=== PATIENT | male | born 1965 | race Caucasian/White ===

== ENCOUNTER → 2017-08-01 | Outpatient (CLI) | payer BC ==
[2017-08-01 11:40] LABS: HCT 40.1 % (39.0-53.0); HGB 13.7 gm/dL (13.0-17.5); MCH 28.8 pg (25.0-35.0); MCHC 34.1 g/dL (31.0-37.0); MCV 84.7 fL (80.0-100.0); Mean Platelet Volume 6.5; Platelet Count 283 k/uL (150-450); RBC 4.73 m/uL (4.30-5.90); RDW 13.4 % (11.5-15.5); WBC 6.6 k/uL (3.8-10.6)
[2017-08-01 11:46] LABS: Appearance,Urine Clear (Clear); Bilirubin,Urine Negative (Negative); Blood,Urine Negative (Negative); Color,Urine Light Yellow; Glucose,Urine (UA) Negative (Negative); Ketones,Urine Negative (Negative); Leukocyte Esterase,Urine Large (Negative); Mucus,Urine Rare /hpf; Nitrite,Urine Negative (Negative); PH, Urine 6.5 (5.0-8.0); Protein,Urine 1+ (Negative); RBC,Urine 3 /hpf (0-5); Specific Gravity,Urine 1.009 (1.001-1.035); Urobilinogen,Urine <2.0 mg/dL (<2.0); WBC,Urine 9 /hpf (0-5)
[2017-08-01 11:47] LABS: ALT 39 U/L (21-72); AST 37 U/L (17-59); Albumin 4.3 g/dL (3.5-5.0); Alkaline Phosphatase 164 U/L (38-126); Anion Gap 12 mmol/L; Blood Urea Nitrogen 23 mg/dL (9-20); Calcium 9.7 mg/dL (8.4-10.2); Carbon Dioxide 26 mmol/L (22-30); Chloride 106 mmol/L (98-107); Glucose 97 mg/dL (74-99); Magnesium 1.9 mg/dL (1.6-2.3); Potassium 4.1 mmol/L (3.5-5.1); Sodium 144 mmol/L (137-145); Total Bilirubin 0.9 mg/dL (0.2-1.3); Total Protein 7.2 g/dL (6.3-8.2); Uric Acid 8.1 mg/dL (3.5-8.5)
[2017-08-01 12:48] LABS: Creatinine,Urine Random 55.6 mg/dL
[2017-08-01 16:07] LABS: Parathyroid Hormone Intact 238.2 pg/mL (14.0-72.0)
[2017-08-01 16:09] LABS: Vitamin D 25 Hydroxy 46.7 ng/mL (30.0-100.0)
== END | disposition home or self-care (01) ==
LOC: LABWHC1 11:02
PROVIDERS: ATTEND Internal Medicine
DX: N18.3 Chronic kidney disease, stage 3 (moderate) (principal); R80.9 Proteinuria, unspecified; E83.39 Other disorders of phosphorus metabolism; E55.9 Vitamin D deficiency, unspecified; M10.9 Gout, unspecified; Z94.0 Kidney transplant status
CPT/HCPCS: 36415; 80053; 80197; 81001; 82306; 82570; 83735; 83970; 84100; 84156; 84550; 85027; 87086

== ENCOUNTER 2017-10-10 12:44 | Emergency (ER) | payer BC ==
[2017-10-10] MEDS ORDERED: SODIUM CHLORIDE 0.9% 1,000 ML IV STA (13:20)
[2017-10-10] MEDS ORDERED: ONDANSETRON 4 MG/2 ML VIAL IVP STA (13:39)
[2017-10-10] MEDS ORDERED: MORPHINE SULFATE 4 MG/0.8 ML SYRINGE (INJ) IVP STA (13:39)
--- NOTE | 2017-10-10 13:44 | ED ---
General Adult HPI - General Chief complaint: Abdominal Pain Stated complaint: DIARRHEA, POSS DEHYDRATION Time Seen by Provider: 10/10/17 13:19 Source: patient, RN notes reviewed Mode of arrival: ambulatory Limitations: no limitations - History of Present Illness Initial comments: This a 52-year-old male presents emergency Department with complaints of ongoing diarrhea abdominal pain and fatigue. Patient states she he was seen in emergency few days ago for similar complaints. Patient saw his PCP sent for lab work C. diff testing in the left but PCP felt that he looked unwell and was sent emergency department. Patient is a history of 2 kidney transplant and pancreas transplant. Patient states he feels rundown. He denies any chest pain or shortness of breath. Patient was on azithromycin prior to the diarrhea starting and there is concerns for C. diff. - Related Data Home Medications Medication Instructions Recorded Confirmed Furosemide [Lasix] 40 mg PO DAILY 11/23/13 10/10/17 Labetalol HCl [Trandate] 600 mg PO BID 11/23/13 10/10/17 Mycophenolate Mofetil [Cellcept] 500 mg PO BID 11/23/13 10/10/17 Pravastatin Sodium [Pravachol] 20 mg PO DAILY 11/23/13 10/10/17 Sodium Bicarbonate Tab 1,950 mg PO BID 11/23/13 10/10/17 Tacrolimus [Prograf] 0.5 mg PO HS 11/23/13 10/10/17 Tacrolimus [Prograf] 1 mg PO QAM 11/23/13 10/10/17 predniSONE 5 mg PO DAILY 11/23/13 10/10/17 Allopurinol [Zyloprim] 100 mg PO DAILY 10/10/17 10/10/17 Calcitriol [Calcitriol] 0.25 mcg PO MOTUWETHFR 10/10/17 10/10/17 Ergocalciferol [Vitamin D2] 50,000 unit PO Q14D 10/10/17 10/10/17 Fluticasone Propionate 2 spray EA NOSTRIL DAILY 10/10/17 10/10/17 Lisinopril [Zestril] 5 mg PO DAILY 10/10/17 10/10/17 Loratadine [Claritin] 10 mg PO DAILY 10/10/17 10/10/17 Montelukast Sodium [Singulair] 10 mg PO HS 10/10/17 10/10/17 amLODIPine [Norvasc] 5 mg PO DAILY 10/10/17 10/10/17 Allergies Allergy/AdvReac Type Severity Reaction Status Date / Time No Known Allergies Allergy Verified 10/10/17 14:00 Review of Systems ROS Statement: Those systems with pertinent positive or pertinent negative responses have been documented in the HPI. ROS Other: All systems not noted in ROS Statement are negative. Past Medical History Past Medical History: Heart Failure, Diabetes Mellitus Additional Past Medical History / Comment(s): ARDS History of Any Multi-Drug Resistant Organisms: None Reported Past Surgical History: Joint Replacement Additional Past Surgical History / Comment(s): kidney and pancreas transplant Past Psychological History: No Psychological Hx Reported Smoking Status: Never smoker Past Alcohol Use History: None Reported Past Drug Use History: None Reported General Exam Limitations: no limitations General appearance: alert, in no apparent distress Head exam: Present: atraumatic, normocephalic, normal inspection Eye exam: Present: normal appearance, PERRL, EOMI. Absent: scleral icterus, conjunctival injection, periorbital swelling ENT exam: Present: normal exam, mucous membranes moist Neck exam: Present: normal inspection. Absent: tenderness, meningismus, lymphadenopathy Respiratory exam: Present: normal lung sounds bilaterally. Absent: respiratory distress, wheezes, rales, rhonchi, stridor Cardiovascular Exam: Present: regular rate, normal rhythm, normal heart sounds. Absent: systolic murmur, diastolic murmur, rubs, gallop, clicks GI/Abdominal exam: Present: soft, tenderness (Mild lower abdominal tenderness), normal bowel sounds. Absent: distended, guarding, rebound, rigid Back exam: Absent: CVA tenderness (R), CVA tenderness (L) Skin exam: Present: warm, dry, intact, normal color. Absent: rash Course Vital Signs 10/10/17 10/10/17 13:06 15:11 Temperature 98.0 F Pulse Rate 70 66 Respiratory 20 18 Rate Blood Pressure 107/52 119/66 O2 Sat by Pulse 98 95 Oximetry Medical Decision Making - Medical Decision Making 52-year-old male presented to the ER for diarrhea. He's had some on-and-off symptoms. Patient was hydrated while emergency department states he feels better he was actually sleeping in the room. Patient was evaluated by Dr. Lobo who agrees. Patient states that he would prefer to go home at this time. Return parameters were discussed. - Lab Data Result diagrams: 10/10/17 13:20 10/10/17 13:46 Lab Results 10/10/17 10/10/17 10/10/17 Range/Units 13:20 13:46 13:46 WBC 10.4 (3.8-10.6) k/uL RBC 4.52 (4.30-5.90) m/uL Hgb 13.1 (13.0-17.5) gm/dL Hct 37.9 L (39.0-53.0) % MCV 83.8 (80.0-100.0) fL MCH 29.1 (25.0-35.0) pg MCHC 34.7 (31.0-37.0) g/dL RDW 13.5 (11.5-15.5) % Plt Count 349 (150-450) k/uL Neutrophils % 79 % Lymphocytes % 11 % Monocytes % 7 % Eosinophils % 1 % Basophils % 0 % Neutrophils # 8.3 H (1.3-7.7) k/uL Lymphocytes # 1.2 (1.0-4.8) k/uL Monocytes # 0.8 (0-1.0) k/uL Eosinophils # 0.1 (0-0.7) k/uL Basophils # 0.0 (0-0.2) k/uL Sodium 142 (137-145) mmol/L Potassium 4.6 (3.5-5.1) mmol/L Chloride 107 (98-107) mmol/L Carbon Dioxide 20 L (22-30) mmol/L Anion Gap 15 mmol/L BUN 26 H (9-20) mg/dL Creatinine 1.69 H (0.66-1.25) mg/dL Est GFR (CKD-EPI)AfAm 52 (>60 ml/min/1.73 sqM) Est GFR (CKD-EPI)NonAf 45 (>60 ml/min/1.73 sqM) Glucose 109 H (74-99) mg/dL Plasma Lactic Acid Jose 0.5 L (0.7-2.0) mmol/L Calcium 9.4 (8.4-10.2) mg/dL Total Bilirubin 1.0 (0.2-1.3) mg/dL AST 15 L (17-59) U/L ALT 24 (21-72) U/L Alkaline Phosphatase 193 H (38-126) U/L Total Protein 6.8 (6.3-8.2) g/dL Albumin 4.3 (3.5-5.0) g/dL Amylase 53 (30-110) U/L Lipase 90 (23-300) U/L Disposition Clinical Impression: Gastroenteritis, Abdominal pain Disposition: HOME SELF-CARE Condition: Stable Instructions: Abdominal Pain (ED) Additional Instructions: Please return to the Emergency Department if symptoms worsen or any other concerns. Is patient prescribed a controlled substance at d/c from ED?: No Referrals: None,Stated [Primary Care Provider] - 1-2 days
[2017-10-10 13:53] LABS: Basophils % (A) 0 %; Eosinophils # (A) 0.1 k/uL (0-0.7); Eosinophils % (A) 1 %; HCT 37.9 % (39.0-53.0); HGB 13.1 gm/dL (13.0-17.5); Lymphocytes # (A) 1.2 k/uL (1.0-4.8); Lymphocytes % (A) 11 %; MCH 29.1 pg (25.0-35.0); MCHC 34.7 g/dL (31.0-37.0); MCV 83.8 fL (80.0-100.0); Mean Platelet Volume 7.1; Monocytes # (A) 0.8 k/uL (0-1.0); Monocytes % (A) 7 %; Neutrophils # (A) 8.3 k/uL (1.3-7.7); Neutrophils % (A) 79 %; Platelet Count 349 k/uL (150-450); RBC 4.52 m/uL (4.30-5.90); RDW 13.5 % (11.5-15.5); WBC 10.4 k/uL (3.8-10.6)
[2017-10-10 13:58] LABS: Albumin 4.3 g/dL (3.5-5.0); Calcium 9.4 mg/dL (8.4-10.2); Potassium 4.6 mmol/L (3.5-5.1); Total Protein 6.8 g/dL (6.3-8.2)
[2017-10-10 16:03] VITALS: BP 130/70; PULSE 65; RESP 16; TEMP 97.8
== END 2017-10-10 16:11 | disposition home or self-care (01) ==
LOC: EC 12:44 → EDSTATUS 12:45 → EC 16:11
DX: K52.9 Noninfective gastroenteritis and colitis, unspecified (principal); I50.9 Heart failure, unspecified; Z94.0 Kidney transplant status; Z94.4 Liver transplant status; Z79.51 Long term (current) use of inhaled steroids; Z79.52 Long term (current) use of systemic steroids; Z79.899 Other long term (current) drug therapy
CPT/HCPCS: 36415; 80053; 82150; 83605; 83690; 85025; 87040; 99284; 96374; 96375; 96361 ×2; J2405; J2270

== ENCOUNTER → 2017-11-28 | Outpatient (CLI) | payer BC ==
[2017-11-28 10:57] LABS: Basophils % (A) 1 %; Eosinophils # (A) 0.1 k/uL (0-0.7); Eosinophils % (A) 1 %; HCT 40.7 % (39.0-53.0); HGB 13.5 gm/dL (13.0-17.5); Lymphocytes # (A) 0.9 k/uL (1.0-4.8); Lymphocytes % (A) 16 %; MCHC 33.1 g/dL (31.0-37.0); MCV 87.5 fL (80.0-100.0); Mean Platelet Volume 6.6; Monocytes # (A) 0.4 k/uL (0-1.0); Monocytes % (A) 8 %; Neutrophils # (A) 4.1 k/uL (1.3-7.7); Neutrophils % (A) 73 %; Platelet Count 295 k/uL (150-450); RBC 4.65 m/uL (4.30-5.90); RDW 13.7 % (11.5-15.5); WBC 5.6 k/uL (3.8-10.6)
[2017-11-28 11:22] LABS: Albumin 4.5 g/dL (3.5-5.0); Calcium 9.6 mg/dL (8.4-10.2); Potassium 4.8 mmol/L (3.5-5.1); Total Bilirubin 0.8 mg/dL (0.2-1.3); Total Protein 7.1 g/dL (6.3-8.2)
[2017-11-28 13:31] LABS: Erythrocyte Sedimentation Rate 7 mm/hr (0-15)
== END | disposition home or self-care (01) ==
LOC: LABWHC1 10:29
PROVIDERS: ATTEND Dermatology MOHS-Micrographic Surgery
DX: K52.9 Noninfective gastroenteritis and colitis, unspecified (principal)
CPT/HCPCS: 80053; 85025; 85652

== ENCOUNTER → 2018-03-31 | Outpatient (CLI) | payer BC ==
--- NOTE | 2018-03-31 18:49 | US ---
EXAMINATION TYPE: US renal transplant w Doppler DATE OF EXAM: 03/31/2018 COMPARISON: US 03/18/2015 CLINICAL HISTORY: 52-year-old male Z94.0 KIDNEY TRANSPLANT. Technique: Grayscale on [place] kidneys and Doppler duplex and Grayscale imaging of the transplanted k idney. FINDINGS: EXAM MEASUREMENTS: [place] Right Kidney: 4.2 X 2.3 X 3.0 CM [place] Left Kidney: 4.4 x 2.9 x 2.7 cm Transplant Kidney: 11.8 X 5.8 X 6.2 CM Location of transplanted kidney: Right pelvis ANATOMY: [place] Right Kidney: Very difficult and limited visualization due to diffuse atrophy and increased e chogenicity. [place] Left Kidney: Very difficult and limited visualization due to diffuse atrophy and increased ech ogenicity. Transplant Kidney: Multiple small cortical cysts are present, largest upper pole measuring 1.2 x 1.0 x 1.1 cm. No hydronephrosis. Satisfactory arterial and venous flow is demonstrated within the [place] kidney. Diastolic flow is maintained on the arterial waveforms. Bladder: wnl Bilateral Jets seen: No IMPRESSION: 1. Redemonstrated small atrophic bilateral [place] kidneys. 2. Viable right lower quadrant transplant kidney shows presence of arterial and venous flow. No hydro nephrosis. 3. Small cortical cysts measuring up to 1.2 cm in the right lower quadrant transplant. 4. Note that this exam does not assess for transplant renal artery stenosis.
== END | disposition home or self-care (01) ==
LOC: RADUSWWP 15:23
PROVIDERS: ATTEND Internal Medicine Nephrology
DX: Z48.22 Encounter for aftercare following kidney transplant (principal); N26.1 Atrophy of kidney (terminal); N28.1 Cyst of kidney, acquired; Z94.0 Kidney transplant status
CPT/HCPCS: 76776

== ENCOUNTER 2018-06-29 15:13 | Emergency (ER) | payer OTHER, BC ==
[2018-06-29 15:24] VITALS: RESP 18
--- NOTE | 2018-06-29 16:15 | XR ---
EXAMINATION TYPE: XR ribs LT w pa chest xray DATE OF EXAM: 06/29/2018 CLINICAL HISTORY: TECHNIQUE: Single frontal view of the chest is obtained. With multiple oblique projections of the lef t ribs COMPARISON: Multiple prior chest radiographs most recently 11/23/2013 FINDINGS: No focal airspace disease, pleural effusion or pneumothorax. The heart remains slightly enlarged but unchanged in the interval. There is no evidence of left-sided rib fracture. Limited evaluation of the upper thorax is unremarkab le. Surgical clips are seen within the low pelvis likely relating to prior transplant. Apparent asymmetric narrowing of the right-sided airway on the AP projection however this is not pers istent on numerous oblique projections. IMPRESSION: 1. No evidence of acute left sided rib fracture. 2. Asymmetric narrowing of the right-sided airway on the AP projection, however this is not persisten t on numerous oblique projections and is favored to be summation artifact. If there is clinical stanley rn for infraglottic airway narrowing, a nonemergent dedicated CT of the thorax should be considered.
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
[2018-06-29 16:49] VITALS: BP 154/84; PULSE 76; TEMP 97.5
== END 2018-06-29 16:50 | disposition home or self-care (01) ==
LOC: EC 15:13
DX: S20.212A Contusion of left front wall of thorax, initial encounter (principal); R31.9 Hematuria, unspecified; I50.9 Heart failure, unspecified; Z96.89 Presence of other specified functional implants; Z94.0 Kidney transplant status; Z94.83 Pancreas transplant status; Z79.52 Long term (current) use of systemic steroids; Z79.899 Other long term (current) drug therapy; V89.2XXA Person injured in unspecified motor-vehicle accident, traffic, initial encounter; Y92.89 Other specified places as the place of occurrence of the external cause
CPT/HCPCS: 99284

== ENCOUNTER → 2018-07-09 | Outpatient (CLI) | payer BC ==
[2018-07-09 11:41] LABS: Appearance,Urine Clear (Clear); Bacteria,Urine Rare /hpf; Bilirubin,Urine Negative (Negative); Blood,Urine Negative (Negative); Color,Urine Yellow; Glucose,Urine (UA) Negative (Negative); Ketones,Urine Negative (Negative); Leukocyte Esterase,Urine Large (Negative); Mucus,Urine Rare /hpf; Nitrite,Urine Negative (Negative); PH, Urine 7.5 (5.0-8.0); Protein,Urine 1+ (Negative); RBC,Urine 1 /hpf (0-5); Squamous Epithelial Cell,Urine 1 /hpf (0-4); Urobilinogen,Urine <2.0 mg/dL (<2.0); WBC,Urine 5 /hpf (0-5)
[2018-07-09 16:52] LABS: Parathyroid Hormone Intact 345.2 pg/mL (14.0-72.0)
[2018-07-09 17:08] LABS: Vitamin D 25 Hydroxy 26.3 ng/mL (30.0-100.0)
[2018-07-09 17:19] LABS: Albumin 4.3 g/dL (3.80-4.90); Albumin/Globulin Ratio 1.95 (1.20-2.10); Calcium 8.9 mg/dL (8.7-10.3); Globulin 2.2 g/dL (1.6-3.3); Magnesium 1.7 mg/dL (1.5-2.4); Phosphorus 3.5 mg/dL (2.4-5.1); Potassium 4.5 mmol/L (3.5-5.5); Total Bilirubin 0.7 mg/dL (0.3-1.2); Total Protein 6.5 g/dL (6.2-8.2); Uric Acid 7.8 mg/dL (3.7-8.7)
[2018-07-09 19:01] LABS: Creatinine,Urine Random 66.4 mg/dL
[2018-07-09 21:26] LABS: Total Protein,Urine Random 52.9 mg/dL (0.0-13.5)
== END | disposition home or self-care (01) ==
LOC: LABWHC1 09:51
PROVIDERS: ATTEND Nurse Practitioner Family
DX: N18.3 Chronic kidney disease, stage 3 (moderate) (principal); N39.0 Urinary tract infection, site not specified; N25.81 Secondary hyperparathyroidism of renal origin; E55.9 Vitamin D deficiency, unspecified; M10.9 Gout, unspecified
CPT/HCPCS: 36415; 80053; 80197; 81001; 82306; 82570; 83735; 83970; 84100; 84156; 84550

== ENCOUNTER 2018-07-14 13:40 | Inpatient (IN) | payer BC ==
[2018-07-14] MEDS ORDERED: IPRATROPIUM-ALBUTEROL 3 ML NEB INHALATION STA (14:01)
--- NOTE | 2018-07-14 14:06 | ED ---
General Adult HPI - General Chief complaint: Shortness of Breath Stated complaint: SOB Time Seen by Provider: 07/14/18 13:54 Source: patient, RN notes reviewed Mode of arrival: ambulatory Limitations: no limitations - History of Present Illness Initial comments: Patient is a pleasant 53-year-old male presenting to the emergency department with complaints of cough and short of breath. Symptoms have been present for a couple of days. Patient does have some occasional green sputum. No fevers. Patient does have history of previous CHF. Patient also has history of pancreas and kidney transplant. No chest pain. No leg pain or leg swelling. - Related Data Home Medications Medication Instructions Recorded Confirmed Furosemide [Lasix] 40 mg PO DAILY 11/23/13 07/14/18 Labetalol HCl [Trandate] 800 mg PO BID 11/23/13 07/14/18 Mycophenolate Mofetil [Cellcept] 500 mg PO BID 11/23/13 07/14/18 Pravastatin Sodium [Pravachol] 20 mg PO DAILY 11/23/13 07/14/18 Sodium Bicarbonate Tab 1,950 mg PO BID 11/23/13 07/14/18 Tacrolimus [Prograf] 0.5 mg PO HS 11/23/13 07/14/18 predniSONE 5 mg PO DAILY 11/23/13 07/14/18 Fluticasone Propionate 2 spray EA NOSTRIL DAILY 10/10/17 07/14/18 amLODIPine [Norvasc] 5 mg PO DAILY 10/10/17 07/14/18 Acitretin [Soriatane] 25 mg PO DAILY 07/14/18 07/14/18 Amoxicillin 2,000 mg PO DIRECTED 07/14/18 07/14/18 Calcitriol [Rocaltrol] 0.25 mcg PO DIRECTED 07/14/18 07/14/18 Ergocalciferol (Vitamin D2) 50,000 unit PO Q14D 07/14/18 07/14/18 [Drisdol] Fluorouracil [Efudex] 1 applicate TOPICAL BID 07/14/18 07/14/18 Lansoprazole 30 mg PO DAILY 07/14/18 07/14/18 Tacrolimus [Prograf] 1 mg PO Q12H 07/14/18 07/14/18 Triamcinolone 0.025% Cream 1 dose TOPICAL BID 01/28/19 01/28/19 [Kenalog 0.025% Cream] Allergies Allergy/AdvReac Type Severity Reaction Status Date / Time No Known Allergies Allergy Verified 07/14/18 14:15 Review of Systems ROS Statement: Those systems with pertinent positive or pertinent negative responses have been documented in the HPI. ROS Other: All systems not noted in ROS Statement are negative. Constitutional: Denies: fever Eyes: Denies: eye pain ENT: Denies: ear pain Respiratory: Reports: cough, dyspnea Cardiovascular: Denies: chest pain Endocrine: Reports: fatigue Gastrointestinal: Denies: abdominal pain Genitourinary: Denies: dysuria Musculoskeletal: Denies: back pain Skin: Denies: rash Neurological: Denies: weakness Past Medical History Past Medical History: Heart Failure, Renal Disease Additional Past Medical History / Comment(s): ARDS, hx of DM History of Any Multi-Drug Resistant Organisms: None Reported Past Surgical History: Joint Replacement Additional Past Surgical History / Comment(s): kidney and pancreas transplant, L knee Past Psychological History: No Psychological Hx Reported Smoking Status: Never smoker Past Alcohol Use History: Rare Past Drug Use History: None Reported General Exam Limitations: no limitations General appearance: alert, in no apparent distress Head exam: Present: atraumatic Eye exam: Present: normal appearance, PERRL ENT exam: Present: normal oropharynx Neck exam: Present: normal inspection Respiratory exam: Present: rhonchi Cardiovascular Exam: Present: regular rate, normal rhythm Expanded Peripheral pulses: 2+: Dorsalis Pedis (R), Dorsalis Pedis (L) GI/Abdominal exam: Present: soft. Absent: tenderness Extremities exam: Present: normal inspection. Absent: pedal edema, calf tenderness Back exam: Present: normal inspection Neurological exam: Present: alert Psychiatric exam: Present: normal affect, normal mood Skin exam: Present: normal color Course Vital Signs 07/14/18 07/14/18 07/14/18 13:44 14:07 14:11 Temperature 98.0 F Pulse Rate 71 72 72 Respiratory 18 Rate Blood Pressure 125/71 O2 Sat by Pulse 96 Oximetry 07/14/18 07/14/18 07/14/18 14:40 15:11 15:20 Temperature Pulse Rate 68 69 Respiratory 18 18 16 Rate Blood Pressure 142/84 150/81 O2 Sat by Pulse 95 95 Oximetry 07/14/18 15:30 Temperature Pulse Rate 70 Respiratory 15 Rate Blood Pressure 150/81 O2 Sat by Pulse 95 Oximetry EKG Findings - EKG Comments: EKG Findings:: Normal sinus rhythm 71. MS 172. QRS 82. QT 356. QTc 495. Normal axis. Normal QRS. No acute ST change. Medical Decision Making - Medical Decision Making Patient reevaluated and resting comfortably in bed. Patient and family updated on results and plan. Case was discussed in detail with Dr. Deras, covering for Dr. Cartagena, who will admit. Patient will be admitted secondary to immunosuppressive medications. Dr. Deras does recommend Zosyn and Levaquin as well as increasing prednisone to 10 mg daily. He also request consult with Dr. Jo and pulmonary. - Lab Data Result diagrams: 07/14/18 14:28 07/14/18 14:28 Lab Results 07/14/18 07/14/18 07/14/18 Range/Units 14:28 14:28 14:28 WBC 10.3 (3.8-10.6) k/uL RBC 4.82 (4.30-5.90) m/uL Hgb 13.6 (13.0-17.5) gm/dL Hct 40.5 (39.0-53.0) % MCV 84.0 (80.0-100.0) fL MCH 28.2 (25.0-35.0) pg MCHC 33.6 (31.0-37.0) g/dL RDW 13.8 (11.5-15.5) % Plt Count 373 (150-450) k/uL Neutrophils % 79 % Lymphocytes % 10 % Monocytes % 7 % Eosinophils % 1 % Basophils % 0 % Neutrophils # 8.1 H (1.3-7.7) k/uL Lymphocytes # 1.1 (1.0-4.8) k/uL Monocytes # 0.7 (0-1.0) k/uL Eosinophils # 0.1 (0-0.7) k/uL Basophils # 0.0 (0-0.2) k/uL PT (9.0-12.0) sec INR (<1.2) APTT (22.0-30.0) sec Sodium 139 (137-145) mmol/L Potassium 3.9 (3.5-5.1) mmol/L Chloride 108 H (98-107) mmol/L Carbon Dioxide 22 (22-30) mmol/L Anion Gap 9 mmol/L BUN 19 (9-20) mg/dL Creatinine 1.22 (0.66-1.25) mg/dL Est GFR (CKD-EPI)AfAm 77 (>60 ml/min/1.73 sqM) Est GFR (CKD-EPI)NonAf 67 (>60 ml/min/1.73 sqM) Glucose 88 (74-99) mg/dL Calcium 8.8 (8.4-10.2) mg/dL Total Bilirubin 0.7 (0.2-1.3) mg/dL AST 20 (17-59) U/L ALT 33 (21-72) U/L Alkaline Phosphatase 239 H (38-126) U/L Total Creatine Kinase 57 (55-170) U/L CK-MB (CK-2) 0.9 (0.0-2.4) ng/mL CK-MB (CK-2) Rel Index 1.6 Troponin I <0.012 (0.000-0.034) ng/mL NT-Pro-B Natriuret Pep pg/mL Total Protein 6.7 (6.3-8.2) g/dL Albumin 3.8 (3.5-5.0) g/dL 07/14/18 07/14/18 Range/Units 14:28 14:28 WBC (3.8-10.6) k/uL RBC (4.30-5.90) m/uL Hgb (13.0-17.5) gm/dL Hct (39.0-53.0) % MCV (80.0-100.0) fL MCH (25.0-35.0) pg MCHC (31.0-37.0) g/dL RDW (11.5-15.5) % Plt Count (150-450) k/uL Neutrophils % % Lymphocytes % % Monocytes % % Eosinophils % % Basophils % % Neutrophils # (1.3-7.7) k/uL Lymphocytes # (1.0-4.8) k/uL Monocytes # (0-1.0) k/uL Eosinophils # (0-0.7) k/uL Basophils # (0-0.2) k/uL PT 10.5 (9.0-12.0) sec INR 1.0 (<1.2) APTT 27.9 (22.0-30.0) sec Sodium (137-145) mmol/L Potassium (3.5-5.1) mmol/L Chloride (98-107) mmol/L Carbon Dioxide (22-30) mmol/L Anion Gap mmol/L BUN (9-20) mg/dL Creatinine (0.66-1.25) mg/dL Est GFR (CKD-EPI)AfAm (>60 ml/min/1.73 sqM) Est GFR (CKD-EPI)NonAf (>60 ml/min/1.73 sqM) Glucose (74-99) mg/dL Calcium (8.4-10.2) mg/dL Total Bilirubin (0.2-1.3) mg/dL AST (17-59) U/L ALT (21-72) U/L Alkaline Phosphatase (38-126) U/L Total Creatine Kinase (55-170) U/L CK-MB (CK-2) (0.0-2.4) ng/mL CK-MB (CK-2) Rel Index Troponin I (0.000-0.034) ng/mL NT-Pro-B Natriuret Pep 880 pg/mL Total Protein (6.3-8.2) g/dL Albumin (3.5-5.0) g/dL Disposition Clinical Impression: Pneumonia Disposition: ADMITTED IP TO THIS HOSP Is patient prescribed a controlled substance at d/c from ED?: No Referrals: Sujit Cartagena MD [Primary Care Provider] - 1-2 days Decision Time: 16:55
[2018-07-14 14:48] LABS: Basophils % (A) 0 %; Eosinophils # (A) 0.1 k/uL (0-0.7); Eosinophils % (A) 1 %; HCT 40.5 % (39.0-53.0); HGB 13.6 gm/dL (13.0-17.5); Lymphocytes # (A) 1.1 k/uL (1.0-4.8); Lymphocytes % (A) 10 %; MCH 28.2 pg (25.0-35.0); MCHC 33.6 g/dL (31.0-37.0); Mean Platelet Volume 6.5; Monocytes # (A) 0.7 k/uL (0-1.0); Monocytes % (A) 7 %; Neutrophils # (A) 8.1 k/uL (1.3-7.7); Neutrophils % (A) 79 %; Platelet Count 373 k/uL (150-450); RBC 4.82 m/uL (4.30-5.90); RDW 13.8 % (11.5-15.5); WBC 10.3 k/uL (3.8-10.6)
[2018-07-14 14:57] LABS: Albumin 3.8 g/dL (3.5-5.0); Calcium 8.8 mg/dL (8.4-10.2); Potassium 3.9 mmol/L (3.5-5.1); Total Bilirubin 0.7 mg/dL (0.2-1.3); Total Protein 6.7 g/dL (6.3-8.2)
[2018-07-14 14:59] LABS: Partial Thromboplastin Time 27.9 sec (22.0-30.0); Prothrombin Time 10.5 sec (9.0-12.0)
[2018-07-14 15:00] LABS: Creatine Kinase 57 U/L (55-170)
--- NOTE | 2018-07-14 15:08 | XR ---
EXAMINATION TYPE: XR chest 2V DATE OF EXAM: 07/14/2018 COMPARISON: 06/29/2018 HISTORY: Shortness of breath TECHNIQUE: Frontal and lateral views of the chest are obtained. FINDINGS: Scattered senescent parenchymal changes noted. Hyperinflation compatible with COPD. Right lower lobe infiltrate identified. Correlate for pneumonia. Follow-up until resolution advised. Heart size is stable. Mediastinal structures are stable and grossly unremarkable. No evidence for hilar prominence. Degenerative changes dorsal spine. IMPRESSION: 1. Right lower lobe infiltrate identified. Correlate for pneumonia. Follow-up until resolution advise d.
[2018-07-14 15:13] LABS: Creatine Kinase MB 0.9 ng/mL (0.0-2.4); Troponin I <0.012 ng/mL (0.000-0.034)
[2018-07-14] MEDS ORDERED: IPRATROPIUM-ALBUTEROL 3 ML NEB INHALATION PRN (16:56)
[2018-07-14] MEDS ORDERED: PNEUMONIA PROTOCOL UTILIZED 1 EACH MISC PO PRN (16:56)
[2018-07-14] MEDS ORDERED: LEVOFLOXACIN 750MG-D5W PMX 750 MG in DEXTROSE/WATER 1 150ML.BAG IVPB STA (16:56)
[2018-07-14] MEDS ORDERED: PIPERACILLIN-TAZOBACTAM 3.375 GM in SODIUM CHLORIDE 0.9% 100 ML IVPB STA (16:56)
[2018-07-14] MEDS: SODIUM CHLORIDE 0.9% 1,000 ML IV SCH (17:13)
[2018-07-14] MEDS: INSULIN ASPART 100 UNIT/ML 1 ML 10 ML VIAL SQ SCH ×2 (19:26→21:26)
[2018-07-14 21:08] LABS: Glucose,Whole Blood 99 mg/dL (75-99)
[2018-07-14] MEDS ORDERED: FLUTICASONE 50MCG/SPRAY NASAL 16GM EA NOSTRIL PRN (21:11)
[2018-07-14] MEDS ORDERED: TRIAMCINOLONE 0.1% CREAM 80 GM TUBE TOPICAL PRN (21:11)
[2018-07-14] MEDS: LABETALOL 200 MG TAB PO SCH (21:57)
[2018-07-14] MEDS: SODIUM BICARBONATE TAB 650 MG TAB PO SCH (21:57)
[2018-07-14] MEDS: amLODIPine 5 MG TAB PO SCH (21:58)
[2018-07-14] MEDS: MYCOPHENOLATE MOFETIL 500 MG TAB PO SCH (21:59)
[2018-07-14] MEDS: TACROLIMUS 0.5 MG CAP PO SCH (21:59)
[2018-07-14] MEDS: predniSONE 5 MG TAB PO SCH (22:00)
[2018-07-14] MEDS ORDERED: ALBUTEROL NEBULIZED 2.5 MG/3 ML INHALATION PRN (22:34)
--- NOTE | 2018-07-14 23:35 | CONS ---
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 He had been treated for an upper respiratory infection or congestion and had some greenish phlegm. He denied any clear fever or chills. He continued to have shortness of breath and was sent to the ER. He had a chest x-ray done in the ER which showed evidence of a right lower zone infiltrate, and subsequently he was admitted for further evaluation. He denies any chest pain at this time. He has a known previous history of diabetes mellitus, type 1, for which he did develop renal failure and underwent kidney transplant several years ago. He subsequently had a failure of his kidney and in 2000 had a kidney and pancreas transplant. He is considered cured from his diabetes, type 1, off his transplant, and remains on immunosuppressive treatment to prevent rejection of his transplanted organs, which include kidney as well as pancreas. He denies a previous history of COPD or asthma but did have a history of ARDS 15 years ago. He apparently had some scarring but does not know the exact details on that. PAST MEDICAL HISTORY: Positive for: 1. Obstructive sleep apnea, for which he is on CPAP at 10 cm of water and had been following with Dr. Shah. 2. History of type 1 diabetes, for which he was seeing Dr. Maya Pressley. 3. History of kidney failure, for which he underwent renal transplant twice and subsequently underwent pancreatic transplant along with his kidney as well. He does not follow with Endocrinology at this time. 4. His past medical history is also positive for diabetic neuropathy. FAMILY HISTORY: Positive for type 2 diabetes in his mother. SOCIAL HISTORY: Patient does not smoke. He does not drink alcohol excessively. REVIEW OF SYSTEMS: Positive for history of skin cancer. MEDICATIONS: Medications prior to admission were: 1. Ergocalciferol. 2. Calcitriol. 3. Prograf. 4. Norvasc. 5. Prednisone 5 mg p.o. at bedtime. 6. Kenalog cream. 7. Prograf. 8. Sodium bicarbonate. 9. Pravachol. 10.CellCept. 11.Lansoprazole. 12.Trandate. 13.Lasix. 14.Fluticasone propionate. 15.Fluorouracil. 16.Amoxicillin as needed. 17.Soriatane. PHYSICAL EXAMINATION: His was lying in bed. He was mildly short of breath. His blood pressure was 149/82, respiratory rate of 19, pulse rate of 76, temperature 98, oxygen saturation on room air 94%. HEENT revealed pupils that are equal. He has a short thick neck. Chest reveals scattered crackles in the bases, more on the right than the left. Cardiovascular system is in S1, S2. Abdomen is soft. There is no pedal edema. Skin shows multiple lesions with erythema. LABS: White count 10.3, hemoglobin 13.6, neutrophils of 8100, which is high. Sodium 139, potassium 3.9, chloride 108, bicarb 22. Chest x-ray shows perihilar infiltrate on the right. IMPRESSION AT THIS TIME: 1. Shortness of breath that is multifactorial, in part due to pneumonia in the right lower zone is likely versus previous scarring. 2. Obstructive sleep apnea. 3. Possible early cor pulmonale. 4. Previous chronic renal failure and type 1 diabetes, status post kidney and pancreas transplant. 5. Immunocompromised state due to anti-rejection medications, which is why he may have not marked a fever with his pneumonia. At this point in time, I agree with keeping him on antibiotics in the form of Zosyn and Levaquin to cover for gram-negatives, keep him on GI prophylaxis, add DVT prophylaxis. Continue him on his immunosuppressive medications. I agree with increasing his prednisone for stress, increasing his prednisone hopefully for a short while at this time. Would keep him on bronchodilators as needed. Depending on how he does, we shall make further changes to his care. He was counseled extensively regarding his condition, our approach, and has a fair understanding of our recommendations. I would like to thank you for allowing me the privilege of participating in his care. MMODL / IJN: [id number] /
[2018-07-14] MEDS: PIPERACILLIN-TAZOBACTAM 3.375 GM in SODIUM CHLORIDE 0.9% 100 ML IVPB SCH (23:51)
[2018-07-15 00:34] LABS: Hemoglobin A1C 5.2 % (4.0-6.0)
[2018-07-15] MEDS: SODIUM CHLORIDE 0.9% 1,000 ML IV SCH ×2 (03:55→16:17)
--- NOTE | 2018-07-15 08:26 | CT ---
EXAMINATION TYPE: CT chest wo con DATE OF EXAM: 07/15/2018 COMPARISON: HISTORY: pneumonia CT DLP: 286.[address] of the chest was performed with lung and mediastinal window settings submitted. The la ck of contrast limits evaluation of the vascular, mediastinal and parenchymal structures including th e upper abdomen. LUNGS: Patchy airspace infiltrates within the basilar regions bilaterally with air bronchograms seen. Right middle lobe involvement noted as well. Small infiltrate also identified right upper lobe. No s izable pleural effusion seen. MEDIASTINUM/DEMIAN: Thoracic aorta is of normal caliber with limited evaluation given lack of contrast . The heart is enlarged. There is evidence of pericardial effusion with thickest measurement of 2.8 cm. No evidence for mediastinal mass. No lymph nodes greater than 1cm. UPPER ABDOMEN: No significant abnormality is seen. OTHER: No significant other abnormality. IMPRESSION: 1. Multifocal bronchopneumonia. Follow-up until resolution is advised. 2. Pericardial effusion moderate in size. Associated cardiomegaly and coronary artery calcifications.
[2018-07-15] MEDS: amLODIPine 5 MG TAB PO SCH ×2 (08:46→22:53)
[2018-07-15] MEDS: LABETALOL 200 MG TAB PO SCH ×2 (08:46→22:53)
[2018-07-15] MEDS: PIPERACILLIN-TAZOBACTAM 3.375 GM in SODIUM CHLORIDE 0.9% 100 ML IVPB SCH ×2 (08:46→16:17)
[2018-07-15] MEDS: SODIUM BICARBONATE TAB 650 MG TAB PO SCH ×2 (08:46→22:53)
[2018-07-15] MEDS: PANTOPRAZOLE 40 MG TABLET PO SCH (08:47)
[2018-07-15] MEDS: HEPARIN SODIUM,PORCINE 5,000 UNIT/ML 1 ML VIAL SQ SCH ×2 (08:47→22:53)
[2018-07-15] MEDS: PRAVASTATIN SODIUM 20 MG TAB PO SCH (08:47)
[2018-07-15] MEDS: TACROLIMUS 1 MG CAP PO SCH (08:47)
[2018-07-15] MEDS: MYCOPHENOLATE MOFETIL 500 MG TAB PO SCH ×2 (08:47→22:53)
[2018-07-15] MEDS ORDERED: FUROSEMIDE 40 MG TAB PO SCH (09:00)
[2018-07-15] MEDS ORDERED: predniSONE 10 MG TAB PO SCH (09:00)
--- NOTE | 2018-07-15 09:16 | XR ---
EXAMINATION TYPE: XR chest 2V DATE OF EXAM: 07/15/2018 COMPARISON: 07/14/2018 TECHNIQUE: PA and lateral views submitted. HISTORY: Pneumonia FINDINGS: Bilateral areas of infiltrate are seen. There is no pneumothorax. Heart is enlarged. Hypertrophic and degenerative change of the spine. IMPRESSION: 1. Bilateral areas of infiltrate stable.
--- NOTE | 2018-07-15 10:21 | P.NPCON ---
History of Present Illness - Reason for Consult chronic renal failure - History of Present Illness Reason for consultation: Chronic kidney disease and renal transplant management History of present illness: Patient is a 53-year-old male seen in renal consultation for acute kidney injury in renal transplant management. Patient has history of living related renal allograft from 2000. Patient states his younger brother donated the kidney. The surgery was done at [facility] right now. Patient has chronic kidney disease stage III with baseline creatinine near 1.2-1.3. GFR currently at baseline. Patient did have a borderline ejection in December 2017. I saw the patient in the clinic yesterday and he was complaining of shortness of breath with exertion. He denies fever. Does have an admit and cough. No vomiting or diarrhea. Admits to good urine output. No hematuria or dysuria. He is maintained on CellCept, Prograf and prednisone for immunosuppression. Hemodynamically stable. Chest x-ray was suggestive of pneumonia and is currently maintained on antibiotics. He is also receiving IV fluids. Vital signs are stable. General: The patient appeared well nourished and normally developed. HEENT: Head exam is unremarkable. Neck is without jugular venous distension. LUNGS: Lungs are clear to auscultation and percussion. Breath sounds decreased. HEART: Rate and Rhythm are regular. First and second heart sounds normal. No murmurs, rubs or gallops. ABDOMEN: Abdominal exam reveals normal bowel sounds. Non-tender and non- distended. No evidence of peritonitis. EXTREMITITES: No clubbing, cyanosis, or edema. Past Medical History Past Medical History: Cancer, Heart Failure, Hyperlipidemia, Hypertension, Osteoarthritis (OA), Renal Disease, Sleep Apnea/CPAP/BIPAP Additional Past Medical History / Comment(s): ARDS, hx of DM was tx for dm from age 9 to age 35(had pancareas transplant), uses cpap machine, basal and squamous cell skin cancer, hx rt elbow broken-(sx), charcots foot History of Any Multi-Drug Resistant Organisms: None Reported Past Surgical History: Hernia Repair, Joint Replacement Additional Past Surgical History / Comment(s): kidney and pancreas transplant , L knee replacment, rt elbow sx has 7 screws,cataracts removed-lens implants, laser eye sx for retinopathy, fernando foot sx(rt foot bone gravt and lt foot bone shaved) Past Anesthesia/Blood Transfusion Reactions: No Reported Reaction Smoking Status: Never smoker - Past Family History Mother Family Medical History: Cancer, Diabetes Mellitus Additional Family Medical History / Comment(s): liver cancer Father Family Medical History: CVA/TIA Additional Family Medical History / Comment(s): was smoker had ctroke in his 30' s Medications and Allergies Home Medications Medication Instructions Recorded Confirmed Type Furosemide [Lasix] 40 mg PO DAILY 11/23/13 07/14/18 History Labetalol HCl [Trandate] 800 mg PO BID 11/23/13 07/14/18 History Mycophenolate Mofetil [Cellcept] 500 mg PO BID 11/23/13 07/14/18 History Pravastatin Sodium [Pravachol] 20 mg PO DAILY 11/23/13 07/14/18 History Sodium Bicarbonate Tab 1,950 mg PO BID 11/23/13 07/14/18 History Tacrolimus [Prograf] 0.5 mg PO HS 11/23/13 07/14/18 History predniSONE 5 mg PO HS 11/23/13 07/14/18 History Fluticasone Propionate 2 spray EA NOSTRIL DAILY PRN 10/10/17 07/14/18 History amLODIPine [Norvasc] 5 mg PO BID 10/10/17 07/14/18 History Acitretin [Soriatane] 25 mg PO DAILY 07/14/18 07/14/18 History Amoxicillin 2,000 mg PO DIRECTED PRN 07/14/18 07/14/18 History Calcitriol [Rocaltrol] 0.25 mcg PO DAILY 07/14/18 07/14/18 History Ergocalciferol (Vitamin D2) 50,000 unit PO QMONTH 07/14/18 07/14/18 History [Drisdol] Fluorouracil [Efudex] 1 applicate TOPICAL BID PRN 07/14/18 07/14/18 History Lansoprazole 30 mg PO DAILY 07/14/18 07/14/18 History Tacrolimus [Prograf] 1 mg PO DAILY 07/14/18 07/14/18 History Triamcinolone 0.025% Cream 1 dose TOPICAL BID PRN 07/14/18 07/14/18 History [Kenalog 0.025% Cream] Allergies Allergy/AdvReac Type Severity Reaction Status Date / Time No Known Allergies Allergy Verified 01/28/19 14:15 Physical Exam Vitals: Vital Signs Temp Pulse Pulse Resp BP BP Pulse Ox 07/15/18 07:00 99.5 F 77 18 140/75 93 L 07/14/18 23:00 98.0 F 81 19 147/79 93 L 07/14/18 20:13 93 L 07/14/18 20:12 93 L 07/14/18 19:10 98.0 F 07/14/18 18:50 76 19 149/82 94 L 07/14/18 18:40 77 17 149/82 94 L 07/14/18 18:30 75 16 154/81 95 07/14/18 18:20 74 16 154/81 07/14/18 18:10 79 17 154/81 95 07/14/18 17:40 77 17 137/82 96 07/14/18 17:20 75 14 142/83 95 07/14/18 17:10 75 13 142/83 94 L 07/14/18 17:00 74 15 151/79 95 07/14/18 16:50 73 16 151/79 96 07/14/18 16:40 73 14 151/79 95 07/14/18 16:10 71 16 150/83 95 07/14/18 15:40 70 16 147/83 95 07/14/18 15:30 70 15 150/81 95 07/14/18 15:20 69 16 150/81 95 07/14/18 15:11 18 07/14/18 14:40 68 18 142/84 95 07/14/18 14:11 72 07/14/18 14:07 72 07/14/18 13:44 98.0 F 71 18 125/71 96 Intake and Output 07/14/18 07/15/18 07/15/18 22:59 06:59 14:59 Other: # Voids 2 2 Weight 75.2 kg Results - Lab Results Most recent lab results Calcium 8.8 mg/dL (8.4-10.2) 07/14/18 14:28 07/14/18 14:28 07/14/18 14:28 Assessment and Plan Plan: Assessment: 1. Status post living related renal allograft from 2000 performed at [facility]. 2. Chronic kidney disease stage III with baseline creatinine near 1.2-1.3 secondary to chronic allograft dysfunction. He did have a rejection episode in December 2017. 3. Dyspnea secondary to pneumonia. 4. Hypertension with chronic kidney disease. Controlled. 5. Chronic kidney disease mineral bone disease maintained on calcitriol. 6. Metabolic acidosis secondary to chronic kidney disease. Maintained on oral sodium bicarbonate. Plan: Hold Lasix. I will decrease rate of normal saline to 50 mL an hour. Encourage oral intake. Maintain immunosuppressive medications - Prograf, CellCept and prednisone. Follow-up cultures. Repeat electrolytes in the morning. Thank you for the consultation. I will continue to follow the patient with you during his hospital stay.
[2018-07-15] MEDS: ACITRETIN 25 MG PO SCH (10:41)
--- NOTE | 2018-07-15 10:57 | P.PN ---
Subjective Progress Note Date: 07/15/18 Principal diagnosis: pneumonia 07/15/2018: Patient seen and examined. The patient states he is feeling a little bit better. His cough is productive of phlegm. Although he notes that is getting better as well. He denies fevers and chills. He states that he did not sleep well last night because he did not have his CPAP. He states his son is bringing it to him today. Objective - Vital Signs Vital signs: Vital Signs Temp 99.5 F 07/15/18 07:00 Pulse 77 07/15/18 07:00 Resp 18 07/15/18 07:00 BP 140/75 07/15/18 07:00 Pulse Ox 93 L 07/15/18 07:00 Intake & Output 07/14/18 07/15/18 07/15/18 18:59 06:59 18:59 Weight 76.657 kg 75.2 kg Other: # Voids 2 - Exam Gen.: Patient is alert and oriented 3, no acute distress Cardiovascular: Regular rate and rhythm, S1/S2 Lungs: Scattered crackles, diminished breath sounds Abdomen: Soft nontender nondistended positive bowel sounds Extremities: No edema - Labs CBC & Chem 7: 07/14/18 14:28 07/14/18 14:28 Labs: Abnormal Lab Results - Last 24 Hours (Table) 07/14/18 07/14/18 Range/Units 14:28 14:28 Neutrophils # 8.1 H (1.3-7.7) k/uL Chloride 108 H (98-107) mmol/L Alkaline Phosphatase 239 H (38-126) U/L Assessment and Plan Assessment: Bilateral community-acquired pneumonia in an immunocompromised patient Immunocompromised state due to antirejection medications History of renal and pancreatic transplants Obstructive sleep apnea compliant with CPAP History of diabetes mellitus type 1 History of ARDS Life long never smoker Maintain saturation greater than or equal to 90%, patient is currently on room air with O2 saturation 93% Consult infectious disease Possible bronchoscopy if requested by infectious disease Continue antibiotics Obtain sputum culture Patient to use CPAP nightly and with naps, patient son will bring from home Albuterol as needed Gentle hydration Continue patient's immunosuppressive medications We will continue to follow along.
[2018-07-15] MEDS: CALCITRIOL 0.25 MCG CAP PO SCH (12:50)
[2018-07-15] MEDS ORDERED: LEVOFLOXACIN 750MG-D5W PMX 750 MG in DEXTROSE/WATER 1 150ML.BAG IVPB SCH (17:00)
--- NOTE | 2018-07-15 20:40 | P.HPIM ---
History of Present Illness H&P Date: 07/15/18 Chief Complaint: Acute respiratory failure, severe shortness of breath and dyspnea, right lo 53-year-old male one of . Patient was seen Dr. Jo regular basis who had double pancreas and kidney transplant who apparently developed to have worsening shortness of breath and dyspnea for the last 1-2 weeks become much worse with productive sputum was in see Dr. Jo on 07/14/2017 with him been hypoxic symptomatic and clinically had pneumonia she ended up sending him to demurs department at [facility] was seen and evaluated x-ray showed right lower lobe infiltrate patient was having inspiratory expiratory wheezes significant hypoxia with his immunosuppressive condition been on transfer medication patient was admitted to the hospital started on IV antibiotic increase his steroid and kept him on bronchodilator this point. Patient was seen quickly by pulmonary last night and agree with the current management and he is on double coverage for gram-negative with Levaquin and Zosyn. Review of Systems CONSTITUTIONAL: Well-developed mild respiratory distres with persistent cough. EYES: No icterus sclerae, no conjunctivitis. EARS, NOSE, MOUTH, THROAT, and FACE: No sore throat, lymphadenopathy, carotid bruits or deformity. RESPIRATORY:positive shortness of ken, and wheezes CARDIOVASCULAR: positive chest wall pain PND, Orthopnea, or angina. GASTROINTESTINAL: No Abd pain, Nausea or vomiting, no Diarrhea or constipation, No GI Bleed, no distention or masses. GENITOURINARY: Negative for Hematuria or UTI, no kidney stones. INTEGUMENT/BREAST: Negative for any muscular injury with mild osteoarthritis.. HEMATOLOGIC/LYMPHATIC: Negative for bleed or purpura. MUSCULOSKELTAL: Negative for Myalgia or arthralgia. NEURLOGICAL: No LOC, Sz or syncope, blurred vision dizziness or abnormality.. BEHAVIORAL/PSYCH: Negative. ENDOCRINE: Negative. Past Medical History Past Medical History: Cancer, Heart Failure, Hyperlipidemia, Hypertension, Osteoarthritis (OA), Renal Disease, Sleep Apnea/CPAP/BIPAP Additional Past Medical History / Comment(s): ARDS, hx of DM was tx for dm from age 9 to age 35(had pancareas transplant), uses cpap machine, basal and squamous cell skin cancer, hx rt elbow broken-(sx), charcots foot History of Any Multi-Drug Resistant Organisms: None Reported Past Surgical History: Hernia Repair, Joint Replacement Additional Past Surgical History / Comment(s): kidney and pancreas transplant , L knee replacment, rt elbow sx has 7 screws,cataracts removed-lens implants, laser eye sx for retinopathy, fernando foot sx(rt foot bone gravt and lt foot bone shaved) Past Anesthesia/Blood Transfusion Reactions: No Reported Reaction Smoking Status: Never smoker - Past Family History Mother Family Medical History: Cancer, Diabetes Mellitus Additional Family Medical History / Comment(s): liver cancer Father Family Medical History: CVA/TIA Additional Family Medical History / Comment(s): was smoker had ctroke in his 30 s Medications and Allergies Home Medications Medication Instructions Recorded Confirmed Type Furosemide [Lasix] 40 mg PO DAILY 11/23/13 07/14/18 History Labetalol HCl [Trandate] 800 mg PO BID 11/23/13 07/14/18 History Mycophenolate Mofetil [Cellcept] 500 mg PO BID 11/23/13 07/14/18 History Pravastatin Sodium [Pravachol] 20 mg PO DAILY 11/23/13 07/14/18 History Sodium Bicarbonate Tab 1,950 mg PO BID 11/23/13 07/14/18 History Tacrolimus [Prograf] 0.5 mg PO HS 11/23/13 07/14/18 History predniSONE 5 mg PO HS 11/23/13 07/14/18 History Fluticasone Propionate 2 spray EA NOSTRIL DAILY PRN 10/10/17 07/14/18 History amLODIPine [Norvasc] 5 mg PO BID 10/10/17 07/14/18 History Acitretin [Soriatane] 25 mg PO DAILY 07/14/18 07/14/18 History Amoxicillin 2,000 mg PO DIRECTED PRN 07/14/18 07/14/18 History Calcitriol [Rocaltrol] 0.25 mcg PO DAILY 07/14/18 07/14/18 History Ergocalciferol (Vitamin D2) 50,000 unit PO QMONTH 07/14/18 07/14/18 History [Drisdol] Fluorouracil [Efudex] 1 applicate TOPICAL BID PRN 07/14/18 07/14/18 History Lansoprazole 30 mg PO DAILY 07/14/18 07/14/18 History Tacrolimus [Prograf] 1 mg PO DAILY 07/14/18 07/14/18 History Triamcinolone 0.025% Cream 1 dose TOPICAL BID PRN 07/14/18 07/14/18 History [Kenalog 0.025% Cream] Allergies Allergy/AdvReac Type Severity Reaction Status Date / Time No Known Allergies Allergy Verified 07/14/18 14:15 Physical Exam Vitals: Vital Signs Temp Pulse Pulse Resp BP BP Pulse Ox 07/15/18 07:00 99.5 F 77 18 140/75 93 L 07/14/18 23:00 98.0 F 81 19 147/79 93 L 07/14/18 20:13 93 L 07/14/18 20:12 93 L 07/14/18 19:10 98.0 F 07/14/18 18:50 76 19 149/82 94 L 07/14/18 18:40 77 17 149/82 94 L 07/14/18 18:30 75 16 154/81 95 07/14/18 18:20 74 16 154/81 07/14/18 18:10 79 17 154/81 95 07/14/18 17:40 77 17 137/82 96 07/14/18 17:20 75 14 142/83 95 07/14/18 17:10 75 13 142/83 94 L 07/14/18 17:00 74 15 151/79 95 07/14/18 16:50 73 16 151/79 96 07/14/18 16:40 73 14 151/79 95 07/14/18 16:10 71 16 150/83 95 07/14/18 15:40 70 16 147/83 95 07/14/18 15:30 70 15 150/81 95 07/14/18 15:20 69 16 150/81 95 07/14/18 15:11 18 07/14/18 14:40 68 18 142/84 95 Intake and Output 07/14/18 07/15/18 07/15/18 22:59 06:59 14:59 Other: # Voids 2 2 Weight 75.2 kg General Appearance: Alert, cooperative, mild distress. Neck HEENT: Supple, no lymphadenopathy, no thyroid enlargement, no carotid bruits. Lungs: decreased expansion with inspiration positive fine rhonchi with crackle especially in Chest Wall: decrease expansion with deep inspiration positive tenderness and no deformity was found on exam, no costochondral pain or discomfort. Heart: Regular rate and rhythm, S1, S2 normal, no murmur, rub or gallop. Back: Symmetric, no curvature, ROM normal, no CVA tenderness. Abdomen: Soft, non-tender, bowel sounds active all four quadrants, no masses, no organomegaly. Extremities: Extremities normal, atraumatic, no cyanosis or edema. Pulses: 2+ and symmetric. Skin: Skin color, texture, tugor normal, no rashes or lesions. Neurologic: Alert oriented x3 cranial nerves II through XII intact, no motor deficit, no abnormal balance or gait. Results CBC & Chem 7: 07/14/18 14:28 07/14/18 14:28 Labs: Abnormal Lab Results - Last 24 Hours (Table) 07/14/18 07/14/18 Range/Units 14: 14: Neutrophils # 8.1 H (1.3-7.7) k/uL Chloride 108 H (98-107) mmol/L Alkaline Phosphatase 239 H (38-126) U/L Thrombosis Risk Factor Assmnt - DVT/VTE Prophylaxis DVT/VTE Prophylaxis: Pharmacologic Prophylaxis ordered, Mechanical Prophylaxis ordered - Choose All That Apply Any of the Below Risk Factors Present?: Yes Each Factor Represents 1 point: Age 41-60 years, Obesity (BMI >25) Other Risk Factors: Yes Each Risk Factor Represents 2 Points: Malignancy Other congenital or acquired thrombophilia - If yes, enter type in comment: No Thrombosis Risk Factor Assessment Total Risk Factor Score: 4 Thrombosis Risk Factor Assessment Level: Moderate Risk Assessment and Plan Plan: 1 Acute respiratory failure: Combination of right lower lobe pneumonia, COPD excessive patient and reactive airway. 2 Bilateral pneumonia: Most likely aspiration and gram-negative, patient be on Zosyn and Levaquin for now continue both agree with pulmonary. 3 Arrhythmia: Patient is doing very well on labetalol. 4 Double kidney and pancreas transplant: Remain on Prograf along with CellCept and 5 mg of prednisone continue medication consult nephrology keep watching the kidney function with a current management. 5 History of type 1 diabetes: Post pancreas transplant: Has not been diabetic at all. 6 History of obstructive sleep apnea: Has been on CPAP and BiPAP on regular basis. 7 Hypertension: Remain on labetalol 800 mg twice a day continue Norvasc 5 mg twice a day as well. 8 Hyperlipidemia: Remain on pravastatin. 9 History of skin cancer: Has been seen dermatology regular basis and in treatment. 10 GI prophylaxis: Continue patient on Pepcid 20 mg daily. 11 DVT prophylaxis: Patient will be on heparin subcutaneous. CODE STATUS: Full code. Admit patient to inpatient status for more than 2 nights.
[2018-07-15] MEDS: predniSONE 5 MG TAB PO SCH (22:53)
[2018-07-15] MEDS: TACROLIMUS 0.5 MG CAP PO SCH (22:53)
--- NOTE | 2018-07-15 23:27 | CONS ---
CONSULTATION DATE OF SERVICE: 07/15/2018. REASON FOR CONSULTATION: Pneumonia in immunocompromised patient. HISTORY OF PRESENT ILLNESS: The patient is a 53-year-old male with a past medical history significant for multiple renal transplants, last pancreatic and kidney transplant, currently on immunosuppressive medication. 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 The patient denies having any significant URI symptoms. The patient did have a cough which is mild to moderate in intensity, with mild sputum production, . No hemoptysis. The patient denies having any chest pain. Denies having any nausea, no vomiting, no choking on the food. No abdominal pain or any diarrhea. With these symptoms, the patient was evaluated by the ER physician. On arrival to the ER, the patient did have a chest x-ray which shows right lower lobe infiltrate identified and correlate for pneumonia. This patient did not have any fever and his white count was not significantly elevated. Subsequently the patient did have a CT of the chest completed which shows multifocal bronchopneumonia. Followup until resolution is recommended. The patient has been treated with levofloxacin in addition to Zosyn. Infectious Disease was consulted for further recommendation regarding antibiotic therapy. REVIEW OF SYSTEMS: CONSTITUTIONAL: Positive for weakness. Some chills. EYES: No complaint. RESPIRATORY: As per HPI. CARDIOVASCULAR: No complaint. GENITOURINARY: No complaint. GASTROINTESTINAL: No complaint. MUSCULOSKELETAL: No deformity, no complaint. PSYCHOLOGICAL: No complaint. ENDOCRINE: No complaint. NEUROLOGICAL: No complaint. PAST MEDICAL HISTORY: Hypertension, hyperlipidemia, heart failure, end-stage renal disease, sleep apnea, ARDS. PAST SURGICAL HISTORY: Kidney AND pancreas transplant, left knee replacement, right elbow surgery, surgery for retinopathy. SOCIAL HISTORY: No history of smoking, drinking, or drug use. FAMILY HISTORY: Mother with history of diabetes and liver cancer. Father history of CVA and TIA. Stroke in his 30s. ALLERGIES: No known drug allergies. MEDICATIONS: The patient is currently on: 1. Prograf. 2. Prednisone. 3. Pravachol. 4. Zosyn 3.375 g every 8 hours. 5. CellCept. 6. Levaquin. 7. Labetalol. 8. Vitamin D2. 9. Rocaltrol. 10.Norvasc. 11.Ventolin. PHYSICAL EXAMINATION: Blood pressure 134/75 with a pulse of 79, temperature of 99, he is 95% on room air. GENERAL DESCRIPTION: A middle-aged male lying in bed in no distress. No tachypnea or accessory muscle of respiration use. HEENT: Shows no pallor or scleral icterus. Oral mucosa is dry. No pharyngeal erythema or thrush. NECK: Trachea central. No thyromegaly. LUNGS: Unlabored breathing with decreased breath sounds at the bases. No wheeze. HEART: S1, S2. Regular rate and rhythm. ABDOMEN: Soft no tenderness, no guarding or rigidity. EXTREMITIES: No edema of the feet. SKIN: No rash or mass palpable. NEUROLOGIC: The patient is awake, alert, oriented x3. Mood and affect normal. LABS: Hemoglobin 13.1, white count of 10.3 with a BUN of 19, creatinine 1.22. Electrolytes have been normal. Liver enzymes are normal. Alkaline phose 239. Influenza serology was negative. Blood cultures obtained currently pending. No sputum collected. DIAGNOSTIC IMPRESSION AND PLAN: Patient has been admitted to the hospital with multifocal pneumonia in this patient with you have history of kidney and pancreas transplant. This patient who is at risk of infection with unusual pathogen and some microbiological diagnosis will be very important in order to adequately treat his underlying infection. PLAN: 1. Blood culture has been ordered. Will try to obtain a sputum and check urine for Legionella antigen. 2. The patient will benefit from bronchoscopy and bronchial lavage, with fluid should be sent in addition to the routine bacterial pathogen, also further PCP and fungal culture. 3. We will keep the patient on Zosyn and Levaquin at this point with adjustment of antibiotic further on the basis of culture report. Thank you for this consultation. Will follow this patient along with you. MMODL / IJN: [id number] /
[2018-07-16] MEDS: PIPERACILLIN-TAZOBACTAM 3.375 GM in SODIUM CHLORIDE 0.9% 100 ML IVPB SCH ×4 (01:40→23:30)
[2018-07-16] MEDS: SODIUM BICARBONATE TAB 650 MG TAB PO SCH ×2 (08:13→20:46)
[2018-07-16] MEDS: amLODIPine 5 MG TAB PO SCH ×2 (08:13→20:46)
[2018-07-16] MEDS: HEPARIN SODIUM,PORCINE 5,000 UNIT/ML 1 ML VIAL SQ SCH ×2 (08:13→20:46)
[2018-07-16] MEDS: PRAVASTATIN SODIUM 20 MG TAB PO SCH (08:14)
[2018-07-16] MEDS: TACROLIMUS 1 MG CAP PO SCH (08:14)
[2018-07-16] MEDS: PANTOPRAZOLE 40 MG TABLET PO SCH (08:14)
[2018-07-16] MEDS: LABETALOL 200 MG TAB PO SCH ×2 (08:14→20:46)
[2018-07-16] MEDS: MYCOPHENOLATE MOFETIL 500 MG TAB PO SCH ×2 (08:14→21:17)
[2018-07-16] MEDS: SODIUM CHLORIDE 0.9% 1,000 ML IV SCH (08:15)
[2018-07-16] MEDS: ACITRETIN 25 MG PO SCH (08:15)
[2018-07-16] MEDS: CALCITRIOL 0.25 MCG CAP PO SCH (08:16)
[2018-07-16 09:04] LABS: Calcium 9.1 mg/dL (8.4-10.2); Magnesium 1.6 mg/dL (1.6-2.3); Potassium 4.5 mmol/L (3.5-5.1)
--- NOTE | 2018-07-16 09:58 | P.PN ---
Subjective Patient is seen in follow-up for acute kidney injury and renal transplant management. Patient history of living related renal allograft from 2000. Patient has chronic kidney disease stage III with baseline creatinine in the range of 1.2-1.3. No significant cough. No active chest pain or shortness of breath. Currently being treated for pneumonia. Vital signs are stable. General: The patient appeared well nourished and normally developed. HEENT: Head exam is unremarkable. Neck is without jugular venous distension. LUNGS: Lungs are clear to auscultation and percussion. Breath sounds decreased. HEART: Rate and Rhythm are regular. First and second heart sounds normal. No murmurs, rubs or gallops. ABDOMEN: Abdominal exam reveals normal bowel sounds. Non-tender and non- distended. No evidence of peritonitis. EXTREMITITES: No clubbing, cyanosis, or edema. Objective - Vital Signs Vital signs: Vital Signs Temp 98.3 F 07/16/18 06:05 Pulse 77 07/16/18 06:05 Resp 18 07/16/18 06:05 BP 151/79 07/16/18 06:05 Pulse Ox 96 07/16/18 06:05 Intake & Output 07/15/18 07/16/18 07/16/18 18:59 06:59 18:59 Intake Total 100 Balance 100 Weight 76 kg Intake: Intake, IV Titration 100 Amount Piperacillin-Tazobactam 3 100 .375 gm In Sodium Chloride 0.9% 100 ml @ 25 mls/hr IVPB Q8HR [facility] Rx# :[id number] Other: # Voids 1 - Labs CBC & Chem 7: 07/14/18 14:28 07/16/18 08:20 Labs: Abnormal Lab Results - Last 24 Hours (Table) 07/16/18 Range/Units 08:20 Chloride 113 H (98-107) mmol/L Carbon Dioxide 19 L (22-30) mmol/L Creatinine 1.35 H (0.66-1.25) mg/dL Glucose 124 H (74-99) mg/dL Microbiology - Last 24 Hours (Table) 07/14/18 14:28 Blood Culture - Preliminary Blood No Growth after 24 hours Assessment and Plan Plan: Assessment: 1. Status post living related renal allograft from 2000 performed at [facility]. 2. Chronic kidney disease stage III with baseline creatinine near 1.2-1.3 secondary to chronic allograft dysfunction. He did have a rejection episode in December 2017. Renal function relatively stable. 3. Dyspnea secondary to pneumonia. Infectious disease and pulmonology following. Potential bronchoscopy this admission. 4. Hypertension with chronic kidney disease. 5. Chronic kidney disease mineral bone disease maintained on calcitriol. 6. Metabolic acidosis secondary to chronic kidney disease and IV fluids. Maintained on oral sodium bicarbonate. Plan: Hold Lasix. Maintain normal saline at 50 mL an hour. Encourage oral intake. Maintain immunosuppressive medications - Prograf, CellCept and prednisone. Follow-up cultures. Repeat electrolytes in the morning. Replace magnesium. 2 g IV today.
[2018-07-16] MEDS: MAGNESIUM SULFATE-D5W PMX 1 GM in DEXTROSE/WATER 1 100ML.BAG IVPB SCH ×2 (10:59→12:38)
--- NOTE | 2018-07-16 13:56 | P.PN ---
Subjective Progress Note Date: 07/16/18 53-year-old male one of Dr. Patient was seen Dr. Jo regular basis who had double pancreas and kidney transplant who apparently developed to have worsening shortness of breath and dyspnea for the last 1-2 weeks become much worse with productive sputum was in see Dr. Jo on 07/14/2017 with him been hypoxic symptomatic and clinically had pneumonia she [facility] was seen and evaluated x-ray showed right lower lobe infiltrate patient was having inspiratory expiratory wheezes significant hypoxia with his immunosuppressive condition been on transfer medication patient was admitted to the hospital started on IV antibiotic increase his steroid and kept him on bronchodilator this point. Patient was seen quickly by pulmonary last night and agree with the current management and he is on double coverage for gram-negative with Levaquin and Zosyn. 07/16: Patient has been seen and followed by Dr. Carson for multifocal pneumonia with plan to continue Zosyn and Levaquin. Legionella testing ordered. Patient is followed by Dr. 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 Lasix is on hold. Normal saline via 50 mL per hour and magnesium replaced. Patient is followed by Dr. Scherer and she has ordered echocardiogram to evaluate pericardial effusion. Report is currently pending. Comprehensive viral panel has been ordered but not obtained. Nursing updated that this is needed. Blood culture is showing no growth at 24 hours. Sputum cultures uncollected. Patient is scheduled for bronchoscopy with BAL tomorrow morning. Patient states he does not have any shortness of breath at this time. No cough. He has been afebrile. Blood pressure 151/79, pulse ox 97 % on CPAP. Review of Systems CONSTITUTIONAL: Well-developed no respiratory distress. EYES: No icterus sclerae, no conjunctivitis. EARS, NOSE, MOUTH, THROAT, and FACE: No sore throat, lymphadenopathy, carotid bruits or deformity. RESPIRATORY:positive shortness of ken, and wheezes CARDIOVASCULAR: positive chest wall pain PND, Orthopnea, or angina. GASTROINTESTINAL: No Abd pain, Nausea or vomiting, no Diarrhea or constipation, No GI Bleed, no distention or masses. GENITOURINARY: Negative for Hematuria or UTI, no kidney stones. INTEGUMENT/BREAST: Negative for any muscular injury with mild osteoarthritis.. HEMATOLOGIC/LYMPHATIC: Negative for bleed or purpura. MUSCULOSKELTAL: Negative for Myalgia or arthralgia. NEURLOGICAL: No LOC, Sz or syncope, blurred vision dizziness or abnormality.. BEHAVIORAL/PSYCH: Negative. ENDOCRINE: Negative. Objective - Vital Signs Vital signs: Vital Signs Temp 98.3 F 07/16/18 06:05 Pulse 77 07/16/18 06:05 Resp 18 07/16/18 08:15 BP 151/79 07/16/18 06:05 Pulse Ox 96 07/16/18 06:05 Intake & Output 07/15/18 07/16/18 07/16/18 18:59 06:59 18:59 Intake Total 100 Balance 100 Weight 76 kg Intake: Intake, IV Titration 100 Amount Piperacillin-Tazobactam 3 100 .375 gm In Sodium Chloride 0.9% 100 ml @ 25 mls/hr IVPB Q8HR [facility] Rx# :[id number] Other: # Voids 1 - Exam General Appearance: Alert, cooperative, no distress. Patient utilizing CPAP. Neck HEENT: Supple, no lymphadenopathy, no thyroid enlargement, no carotid bruits. Lungs: decreased expansion with inspiration positive fine rhonchi with crackle especially in Chest Wall: decrease expansion with deep inspiration positive tenderness and no deformity was found on exam, no costochondral pain or discomfort. Heart: Regular rate and rhythm, S1, S2 normal, no murmur, rub or gallop. Back: Symmetric, no curvature, ROM normal, no CVA tenderness. Abdomen: Soft, non-tender, bowel sounds active all four quadrants, no masses, no organomegaly. Extremities: Extremities normal, atraumatic, no cyanosis or edema. Pulses: 2+ and symmetric. Skin: Skin color, texture, tugor normal, no rashes or lesions. Neurologic: Alert oriented x3 cranial nerves II through XII intact, no motor deficit, no abnormal balance or gait. - Labs CBC & Chem 7: 07/14/18 14:28 07/16/18 08:20 Labs: Abnormal Lab Results - Last 24 Hours (Table) 07/16/18 Range/Units 08:20 Chloride 113 H (98-107) mmol/L Carbon Dioxide 19 L (22-30) mmol/L Creatinine 1.35 H (0.66-1.25) mg/dL Glucose 124 H (74-99) mg/dL Microbiology - Last 24 Hours (Table) 07/14/18 14:28 Blood Culture - Preliminary Blood No Growth after 24 hours Assessment and Plan Plan: 1 Acute respiratory distress due to right lower lobe pneumonia, probable gram- negative pneumonia. Consult appreciated with pulmonary medicine and infectious disease. Patient is scheduled for bronchoscopy and BAL tomorrow. Continue IV antibiotics with Zosyn and Levaquin. 2 Bilateral pneumonia: Most likely aspiration and gram-negative, patient be on Zosyn and Levaquin for now continue both agree with pulmonary. 3 Arrhythmia: Patient is doing very well on labetalol. 4 Double kidney and pancreas transplant: Remain on Prograf along with CellCept and 5 mg of prednisone continue medication consult nephrology keep watching the kidney function with a current management. 5 History of type 1 diabetes: Post pancreas transplant: Has not been diabetic at all. 6 History of obstructive sleep apnea: Has been on CPAP on regular basis. 7 Hypertension: Remain on labetalol 800 mg twice a day continue Norvasc 5 mg twice a day as well. 8 Hyperlipidemia: Remain on pravastatin. 9 History of skin cancer: Has been seen dermatology regular basis and in treatment. 10 GI prophylaxis: Continue patient on Pepcid 20 mg daily. 11 DVT prophylaxis: Patient will be on heparin subcutaneous. CODE STATUS: Full code. Discharge plan: Return home Impression and plan of care have been directed as dictated by the signing physician. Chata Garcia nurse practitioner acting as scribe for signing physician.
--- NOTE | 2018-07-16 15:25 | PN ---
PROGRESS NOTE DATE OF SERVICE: 07/16/2018 He has been hemodynamically stable. He continues to have shortness of breath. He had a CT scan done, which was reviewed, shows bilateral lower zone infiltrates, but also some right upper lobe infiltrate as well, which seem to be new. He does have of his previous history of AIDS with some scarring in his lower zone. PHYSICAL EXAMINATION: Blood pressure 120/79, respiratory rate of 18, pulse rate of 77, temperature of 98.3. HEENT: Unremarkable. Chest reveals decreased breath sounds in the bases. Cardiovascular system reveals an S1, S2. Abdomen is soft. There is no pedal edema. White count is 10.3, hemoglobin 13.6, sodium 142, potassium 4.5, chloride 113, bicarb 19, BUN 17, creatinine of 1.35. IMPRESSION: 1. Pneumonia in an immunocompromised individual for which plan is for bronchoscopy tomorrow to narrow down the etiology and the organism. 2. History of renal failure and type 1 diabetes for which he is status post kidney and pancreatic transplant and is on anti-rejection medications. Continue him on antihypertensive medications Zosyn, Levaquin to cover for atypical organisms as well as gram negatives such as Pseudomonas. Depending on how he does, we shall make further changes to his care. MMODL / IJN: [id number] /
[2018-07-16] MEDS: LEVOFLOXACIN 750 MG TAB PO SCH (20:45)
[2018-07-16] MEDS: TACROLIMUS 0.5 MG CAP PO SCH (21:17)
[2018-07-16] MEDS: predniSONE 5 MG TAB PO SCH (21:17)
--- NOTE | 2018-07-16 22:58 | PN ---
PROGRESS NOTE DATE OF SERVICE: 07/16/2018. REASON FOR FOLLOWUP: Pneumonia. INTERVAL HISTORY: The patient is afebrile. He seems to be breathing more comfortably today. The patient denies having any chest pain. Very minimal cough, not bringing up any sputum. No nausea, no vomiting. No abdominal pain. No diarrhea. PHYSICAL EXAMINATION: Blood pressure is 162/84 with a pulse of 73, temperature 97.8. He is 97% on room air. General description is a middle-aged male lying in bed in no distress. RESPIRATORY SYSTEM: Unlabored breathing with decreased breath sounds at the base. No wheeze. HEART: S1, S2. Regular rate and rhythm. ABDOMEN: Soft. No tenderness. LABS: BUN of 13, creatinine 1.35. Blood culture has been negative so far. Sputum not collected. DIAGNOSTIC IMPRESSION AND PLAN: Patient admitted to hospital with difficulty in breathing in this patient who did have a chest x-ray as well as CT of the chest with evidence of multifocal bronchopneumonia. Patient is currently covered with Levaquin and Zosyn; to continue for now, awaiting possible bronchoscopy in a.m. Continue to monitor his clinical course and cultures closely. Continue with supportive care. MMODL / IJN: [id number] /
[2018-07-17] MEDS: SODIUM CHLORIDE 0.9% 1,000 ML IV SCH (04:31)
[2018-07-17] MEDS ORDERED: MIDAZOLAM (PF) 2 MG/2 ML VIAL IV PRN (06:09)
[2018-07-17] MEDS ORDERED: LIDOCAINE 1% 20 ML VIAL (10MG/ML) FOR IV START INTRADERMA PRN (06:09)
[2018-07-17] MEDS: LACTATED RINGERS 1,000 ML IV SCH (06:20)
[2018-07-17] MEDS: HEPARIN SODIUM,PORCINE 5,000 UNIT/ML 1 ML VIAL SQ SCH ×2 (06:21→20:24)
[2018-07-17] MEDS: MYCOPHENOLATE MOFETIL 500 MG TAB PO SCH (08:20)
[2018-07-17] MEDS: ACITRETIN 25 MG PO SCH (08:22)
[2018-07-17] MEDS: TACROLIMUS 1 MG CAP PO SCH (08:25)
[2018-07-17] MEDS: SODIUM BICARBONATE TAB 650 MG TAB PO SCH ×2 (08:25→20:25)
[2018-07-17] MEDS: PANTOPRAZOLE 40 MG TABLET PO SCH (08:25)
[2018-07-17] MEDS: amLODIPine 5 MG TAB PO SCH ×2 (08:25→20:25)
[2018-07-17] MEDS: LABETALOL 200 MG TAB PO SCH ×2 (08:25→20:25)
[2018-07-17] MEDS: PRAVASTATIN SODIUM 20 MG TAB PO SCH (08:25)
[2018-07-17] MEDS: PIPERACILLIN-TAZOBACTAM 3.375 GM in SODIUM CHLORIDE 0.9% 100 ML IVPB SCH ×3 (08:25→23:13)
--- NOTE | 2018-07-17 09:12 | P.PN ---
Subjective Patient is seen in follow-up for acute kidney injury and renal transplant management. Patient history of living related renal allograft from 2000. Patient has chronic kidney disease stage III with baseline creatinine in the range of 1.2-1.3. No significant cough. No active chest pain or shortness of breath. Currently being treated for pneumonia. Scheduled for bronchoscopy today. Vital signs are stable. General: The patient appeared well nourished and normally developed. HEENT: Head exam is unremarkable. Neck is without jugular venous distension. LUNGS: Lungs are clear to auscultation and percussion. Breath sounds decreased. HEART: Rate and Rhythm are regular. First and second heart sounds normal. No murmurs, rubs or gallops. ABDOMEN: Abdominal exam reveals normal bowel sounds. Non-tender and non- distended. No evidence of peritonitis. EXTREMITITES: No clubbing, cyanosis, or edema. Objective - Vital Signs Vital signs: Vital Signs Temp 98.2 F 07/17/18 06:40 Pulse 72 07/17/18 06:40 Resp 18 07/17/18 06:40 BP 148/70 07/17/18 06:40 Pulse Ox 96 07/17/18 06:40 Intake & Output 07/16/18 07/17/18 07/17/18 18:59 06:59 18:59 Intake Total 1200 350 Balance 1200 350 Weight 73.5 kg Intake: Oral 1200 350 Other: # Voids 1 2 - Labs CBC & Chem 7: 07/14/18 14:28 07/16/18 08:20 Labs: Microbiology - Last 24 Hours (Table) 07/14/18 14:28 Blood Culture - Preliminary Blood No Growth after 48 hours Assessment and Plan Plan: Assessment: 1. Status post living related renal allograft from 2000 performed at [facility]. 2. Chronic kidney disease stage III with baseline creatinine near 1.2-1.3 secondary to chronic allograft dysfunction. He did have a rejection episode in December 2017. Renal function relatively stable. 3. Dyspnea secondary to pneumonia. Infectious disease and pulmonology following. Scheduled for bronchoscopy today. 4. Hypertension with chronic kidney disease. 5. Chronic kidney disease mineral bone disease maintained on calcitriol. 6. Metabolic acidosis secondary to chronic kidney disease and IV fluids. Maintained on oral sodium bicarbonate. Plan: Hold Lasix. Maintain normal saline at 50 mL an hour. Encourage oral intake. Maintain immunosuppressive medications - I will hold CellCept and increase the dose of prednisone due to infection. Follow-up cultures. Repeat electrolytes in the morning.
[2018-07-17] MEDS ORDERED: PROPOFOL 10 MG/ML 20 ML VIAL IV ONE (09:27)
[2018-07-17] MEDS ORDERED: MIDAZOLAM 2 MG/2 ML VIAL ONE (09:27)
[2018-07-17] MEDS ORDERED: LACTATED RINGERS 900 ML IV ONE (09:57)
[2018-07-17] MEDS ORDERED: LIDOCAINE 2% INJ 20 MG/ML INTRATRACH ONE (09:58)
--- NOTE | 2018-07-17 10:12 | P.PCN ---
Date of Procedure: 07/17/18 Preoperative Diagnosis: bilateral community acquired pneumonia Postoperative Diagnosis: same Procedure(s) Performed: bronchoscopy Surgeon: Elisa Scherer Estimated Blood Loss (ml): 20 Condition: stable Disposition: floor Indications for Procedure: Immunocompromised state Bilateral lower lobe community acquired pneumonia Description of Procedure: After review of risks and benefits and discussion of alternative methods of diagnosis, the patient provided informed consent and is willing to proceed with evaluation is recommended. The patient, in endoscopy suite, was placed on continuous electrocardiogram, noninvasive blood pressure monitoring, and SpO2 monitoring. He was administered supplemental oxygen via nasal canula and given IV sedation by the Department of anesthesia. The video bronchoscope was passed through the right nare and the patient did have some bleeding. He was given Afrin bilaterally in each nare. The scope was then placed through the left nare and carried down to the level of the vocal cords the vocal cords were seen to be moving freely and phonation and respiration. The larynx is normal. The trachea was normal. The delon is sharp. The right mainstem bronchus was entered first where the right upper lobe, right middle lobe, and right lower lobe were identified. BAL was performed at the RLL utilizing 100 cc of normal saline with return of blood aspirate. The bronchoscope was then directed into the left lower lobe bronchus. Left lower lobe BAL was performed utilizing 100 cc of noraml saline with return of bloody aspirate. The scope was redirected back to the right lower lobe were cytology brushing was obtained. Some bleeding occurred but hemostasis was achieved spontaneously. The bronchoscope was then retracted and the procedure was terminated. The patient tolerated the procedure well. He was discharged to the recovery suite in stable and satisfactory condition. The patient's was updated and all questions answered.
[2018-07-17 10:13] LABS: Albumin 3.3 g/dL (3.5-5.0); Calcium 8.9 mg/dL (8.4-10.2); Potassium 4.2 mmol/L (3.5-5.1); Total Bilirubin 0.6 mg/dL (0.2-1.3); Total Protein 6.1 g/dL (6.3-8.2)
[2018-07-17] MEDS: CALCITRIOL 0.25 MCG CAP PO SCH (11:32)
--- NOTE | 2018-07-17 13:11 | P.PN ---
Subjective Progress Note Date: 07/17/18 53-year-old male one of Dr. Patient was seen Dr. Jo regular basis who had double pancreas and kidney transplant who apparently developed to have worsening shortness of breath and dyspnea for the last 1-2 weeks become much worse with productive sputum was in see Dr. Jo on 07/14/2017 with him been hypoxic symptomatic and clinically had pneumonia [facility] was seen and evaluated x-ray showed right lower lobe infiltrate patient was having inspiratory expiratory wheezes significant hypoxia with his immunosuppressive condition been on transfer medication patient was admitted to the hospital started on IV antibiotic increase his steroid and kept him on bronchodilator this point. Patient was seen quickly by pulmonary last night and agree with the current management and he is on double coverage for gram-negative with Levaquin and Zosyn. 07/16: Patient has been seen and followed by Dr. Carson for multifocal pneumonia with plan to continue Zosyn and Levaquin. Legionella testing ordered. Patient is followed by Dr. 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 Lasix is on hold. Normal saline via 50 mL per hour and magnesium replaced. Patient is followed by Dr. Scherer and she has ordered echocardiogram to evaluate pericardial effusion. Report is currently pending. Comprehensive viral panel has been ordered but not obtained. Nursing updated that this is needed. Blood culture is showing no growth at 24 hours. Sputum cultures uncollected. Patient is scheduled for bronchoscopy with BAL tomorrow morning. Patient states he does not have any shortness of breath at this time. No cough. He has been afebrile. Blood pressure 151/79, pulse ox 97 % on CPAP. 07/17: Patient is out of his room for bronchoscopy and BAL with Dr. Scherer. Review of Systems CONSTITUTIONAL: Well-developed no respiratory distress. EYES: No icterus sclerae, no conjunctivitis. EARS, NOSE, MOUTH, THROAT, and FACE: No sore throat, lymphadenopathy, carotid bruits or deformity. RESPIRATORY:positive shortness of ken, and wheezes CARDIOVASCULAR: positive chest wall pain PND, Orthopnea, or angina. GASTROINTESTINAL: No Abd pain, Nausea or vomiting, no Diarrhea or constipation, No GI Bleed, no distention or masses. GENITOURINARY: Negative for Hematuria or UTI, no kidney stones. INTEGUMENT/BREAST: Negative for any muscular injury with mild osteoarthritis.. HEMATOLOGIC/LYMPHATIC: Negative for bleed or purpura. MUSCULOSKELTAL: Negative for Myalgia or arthralgia. NEURLOGICAL: No LOC, Sz or syncope, blurred vision dizziness or abnormality.. BEHAVIORAL/PSYCH: Negative. ENDOCRINE: Negative. Objective - Vital Signs Vital signs: Vital Signs Temp 98 F 07/17/18 10:11 Pulse 72 07/17/18 10:57 Resp 26 H 07/17/18 10:57 BP 145/76 07/17/18 10:57 Pulse Ox 95 07/17/18 10:57 Intake & Output 07/16/18 07/17/18 07/17/18 18:59 06:59 18:59 Intake Total 1200 350 200 Balance 1200 350 200 Weight 73.5 kg Intake: IV 200 Oral 1200 350 Other: # Voids 1 2 - Exam General Appearance: Alert, cooperative, no distress. Patient utilizing CPAP. Neck HEENT: Supple, no lymphadenopathy, no thyroid enlargement, no carotid bruits. Lungs: decreased expansion with inspiration positive fine rhonchi with crackle especially in Chest Wall: decrease expansion with deep inspiration positive tenderness and no deformity was found on exam, no costochondral pain or discomfort. Heart: Regular rate and rhythm, S1, S2 normal, no murmur, rub or gallop. Back: Symmetric, no curvature, ROM normal, no CVA tenderness. Abdomen: Soft, non-tender, bowel sounds active all four quadrants, no masses, no organomegaly. Extremities: Extremities normal, atraumatic, no cyanosis or edema. Pulses: 2+ and symmetric. Skin: Skin color, texture, tugor normal, no rashes or lesions. Neurologic: Alert oriented x3 cranial nerves II through XII intact, no motor deficit, no abnormal balance or gait. - Labs CBC & Chem 7: 07/14/18 14:28 07/17/18 09:09 Labs: Abnormal Lab Results - Last 24 Hours (Table) 07/17/18 Range/Units 09:09 Chloride 112 H (98-107) mmol/L Carbon Dioxide 21 L (22-30) mmol/L Glucose 104 H (74-99) mg/dL AST 14 L (17-59) U/L Alkaline Phosphatase 185 H (38-126) U/L Total Protein 6.1 L (6.3-8.2) g/dL Albumin 3.3 L (3.5-5.0) g/dL Microbiology - Last 24 Hours (Table) 07/14/18 14:28 Blood Culture - Preliminary Blood No Growth after 48 hours Assessment and Plan Plan: 1 Acute respiratory distress due to right lower lobe pneumonia, probable gram- negative pneumonia. Consult appreciated with pulmonary medicine and infectious disease. Patient is scheduled for bronchoscopy and BAL. Continue IV antibiotics with Zosyn and Levaquin. 2 Bilateral pneumonia: Most likely aspiration and gram-negative, patient be on Zosyn and Levaquin for now continue both agree with pulmonary. 3 Arrhythmia: Patient is doing very well on labetalol. 4 Double kidney and pancreas transplant: Remain on Prograf along with CellCept and 5 mg of prednisone continue medication consult nephrology keep watching the kidney function with a current management. 5 History of type 1 diabetes: Post pancreas transplant: Has not been diabetic at all. 6 History of obstructive sleep apnea: Has been on CPAP on regular basis. 7 Hypertension: Remain on labetalol 800 mg twice a day continue Norvasc 5 mg twice a day as well. 8 Hyperlipidemia: Remain on pravastatin. 9 History of skin cancer: Has been seen dermatology regular basis and in treatment. 10 GI prophylaxis: Continue patient on Pepcid 20 mg daily. 11 DVT prophylaxis: Patient will be on heparin subcutaneous. CODE STATUS: Full code. Discharge plan: Return home in the next 24 hours Impression and plan of care have been directed as dictated by the signing physician. Chata Garcia nurse practitioner acting as scribe for signing physician.
[2018-07-17] MEDS: LEVOFLOXACIN 750 MG TAB PO SCH (20:25)
[2018-07-17] MEDS: TACROLIMUS 0.5 MG CAP PO SCH (20:25)
[2018-07-17] MEDS ORDERED: predniSONE 10 MG TAB PO SCH (21:00)
--- NOTE | 2018-07-17 22:32 | PN ---
PROGRESS NOTE DATE OF SERVICE: 07/17/2018. REASON FOR FOLLOWUP: Pneumonia in a patient with immunocompromised state. INTERVAL HISTORY: The patient is afebrile. The patient is status post bronchoscopy this morning. The patient tolerated the procedure. The patient's overall breathing has improved. The cough has decreased in intensity, remains dry in nature. No hemoptysis. No abdominal pain and no diarrhea. PHYSICAL EXAMINATION: Blood pressure is 145/82 with a pulse of 82, temperature 97.8. He is saturating 98% on CPAP. General description is a middle-aged male lying in bed in no distress. RESPIRATORY SYSTEM: Unlabored breathing with decreased intensity of breath sounds. No wheeze. HEART: S1, S2. Regular rate and rhythm. ABDOMEN: Soft. No tenderness. LABS: BUN of 14, creatinine 1.21. Bronch culture is currently pending DIAGNOSTIC IMPRESSION AND PLAN: Patient admitted to hospital with evidence of multifocal pneumonia in this patient who did have pancreatitis and kidney transplant, on immunosuppressive medication. Patient is currently covered with Zosyn. That will continue while waiting for the bronch culture to finalize. Continue with supportive care. MMODL / IJN: [id number] /
[2018-07-18] MEDS: SODIUM CHLORIDE 0.9% 1,000 ML IV SCH (00:01)
[2018-07-18] MEDS: LACTATED RINGERS 1,000 ML IV SCH (04:31)
[2018-07-18 07:44] VITALS: BP 167/94; TEMP 97.9
[2018-07-18 07:45] VITALS: PULSE 74
--- NOTE | 2018-07-18 07:53 | P.PN ---
Subjective Patient is seen in follow-up for acute kidney injury and renal transplant management. Patient history of living related renal allograft from 2000. Patient has chronic kidney disease stage III with baseline creatinine in the range of 1.2-1.3. No significant cough. No active chest pain or shortness of breath. Currently being treated for pneumonia. He underwent bronchoscopy yesterday and tolerated the procedure well. Vital signs are stable. General: The patient appeared well nourished and normally developed. HEENT: Head exam is unremarkable. Neck is without jugular venous distension. LUNGS: Lungs are clear to auscultation and percussion. Breath sounds decreased. HEART: Rate and Rhythm are regular. First and second heart sounds normal. No murmurs, rubs or gallops. ABDOMEN: Abdominal exam reveals normal bowel sounds. Non-tender and non- distended. No evidence of peritonitis. EXTREMITITES: No clubbing, cyanosis, or edema. Objective - Vital Signs Vital signs: Vital Signs Temp 97.9 F 07/18/18 07:28 Pulse 74 07/18/18 07:43 Resp 12 07/18/18 07:43 BP 167/94 07/18/18 07:28 Pulse Ox 97 07/18/18 07:29 Intake & Output 07/17/18 07/18/18 07/18/18 18:59 06:59 18:59 Intake Total 540 575 Balance 540 575 Weight 72.5 kg Intake: IV 300 Piperacillin-Tazobactam 3 100 .375 gm In Sodium Chloride 0.9% 100 ml @ 25 mls/hr IVPB Q8HR [facility] Rx# :[id number] Oral 240 575 Other: # Voids 1 - Labs CBC & Chem 7: 07/14/18 14:28 07/17/18 09:09 Labs: Abnormal Lab Results - Last 24 Hours (Table) 07/17/18 Range/Units 09:09 Chloride 112 H (98-107) mmol/L Carbon Dioxide 21 L (22-30) mmol/L Glucose 104 H (74-99) mg/dL AST 14 L (17-59) U/L Alkaline Phosphatase 185 H (38-126) U/L Total Protein 6.1 L (6.3-8.2) g/dL Albumin 3.3 L (3.5-5.0) g/dL Microbiology - Last 24 Hours (Table) 07/17/18 09:45 Acid Fast Bacilli Smear - Final Bronchial Brushings - Left Acid Fast Bacilli Culture - Preliminary 07/17/18 09:45 Acid Fast Bacilli Smear - Final Bronchial Brushings - Right Acid Fast Bacilli Culture - Preliminary 07/17/18 09:45 Gram Stain - Preliminary Bronchial Brushings - Left Bronchial Washings Culture - Preliminary 07/17/18 09:45 Gram Stain - Preliminary Bronchial Brushings - Right Bronchial Washings Culture - Preliminary 07/17/18 09:45 Fungal Culture - Preliminary Bronchial Brushings - Right 07/17/18 09:45 Fungal Culture - Preliminary Bronchial Brushings - Left 07/14/18 14:28 Blood Culture - Preliminary Blood No Growth after 72 hours Assessment and Plan Plan: Assessment: 1. Status post living related renal allograft from 2000 performed at [facility]. 2. Chronic kidney disease stage III with baseline creatinine near 1.2-1.3 secondary to chronic allograft dysfunction. He did have a rejection episode in December 2017. Renal function relatively stable. 3. Dyspnea secondary to pneumonia. Infectious disease and pulmonology following. Scheduled for bronchoscopy today. 4. Hypertension with chronic kidney disease. 5. Chronic kidney disease mineral bone disease maintained on calcitriol. 6. Metabolic acidosis secondary to chronic kidney disease and IV fluids. Maintained on oral sodium bicarbonate. Plan: Hold Lasix. Hep-Lock IV fluids. Encourage oral intake. Maintain immunosuppressive medications - CellCept was held as of July 17 and dose of prednisone was increased to 10 mg daily. Will resume CellCept and cut the prednisone dose back down to 5 mg over the next 5-7 days as the infection improves. Follow-up cultures. Repeat electrolytes in the morning.
[2018-07-18] MEDS: PRAVASTATIN SODIUM 20 MG TAB PO SCH (08:57)
[2018-07-18] MEDS: amLODIPine 5 MG TAB PO SCH (08:57)
[2018-07-18] MEDS: PANTOPRAZOLE 40 MG TABLET PO SCH (08:57)
[2018-07-18] MEDS: LABETALOL 200 MG TAB PO SCH (08:57)
[2018-07-18] MEDS: HEPARIN SODIUM,PORCINE 5,000 UNIT/ML 1 ML VIAL SQ SCH (08:58)
[2018-07-18] MEDS: SODIUM BICARBONATE TAB 650 MG TAB PO SCH (08:58)
[2018-07-18] MEDS: ACITRETIN 25 MG PO SCH (09:05)
[2018-07-18] MEDS: PIPERACILLIN-TAZOBACTAM 3.375 GM in SODIUM CHLORIDE 0.9% 100 ML IVPB SCH (09:07)
[2018-07-18] MEDS: TACROLIMUS 1 MG CAP PO SCH (09:36)
[2018-07-18 09:52] VITALS: RESP 18
[2018-07-18] MEDS ORDERED: ERGOCALCIFEROL 50,000 UNIT CAP PO SCH (12:00)
[2018-07-18] MEDS: CALCITRIOL 0.25 MCG CAP PO SCH (12:02)
--- NOTE | 2018-07-18 12:47 | PN ---
PROGRESS NOTE He underwent bronchoscopy yesterday. He has been hemodynamically stable. He has an occasional cough. He continues to have some shortness of breath and is on his CPAP. On physical examination, respiratory rate is 18, pulse rate of 74, O2 saturation is 97%, blood pressure 167/94, temperature 97.9. HEENT reveals CPAP mask in place. Chest is clear. Cardiovascular system reveals an S1, S2. Abdomen is soft. There is trace pedal edema. His bronchial alveolar cultures have been negative so far. IMPRESSION: 1. Pneumonia in an immunocompromised individual. 2. He is status post renal and pancreatic transplant with previous history of chronic renal failure as well as type 1 diabetes. 3. Skin cancer. Continue him on his current medications. Hopefully, he will be able to narrow antibiotic coverage once cultures are back. MMODL / IJN: [id number] /
--- NOTE | 2018-07-18 14:09 | P.DS ---
Providers Date of admission: 07/16/18 10:33 Expected date of discharge: 07/18/18 Attending physician: Tong Deras Consults: 07/14/18 16:56 Consult Physician Routine Consulting Provider: Eleonora Jo Consult Reason/Comments: Nephrology consult Do you want consulting provider notified?: Yes 07/14/18 16:57 Consult Physician Routine Consulting Provider: Shawn Pressley Consult Reason/Comments: Pneumonia, transplant patient Do you want consulting provider notified?: Yes 07/15/18 10:57 Consult Physician Routine Consulting Provider: Mayur Carson Consult Reason/Comments: CAP, immunocompromised Do you want consulting provider notified?: Yes Primary care physician: Sujit Pe[facility] Course: 53-year-old male one of Dr. Patient was seen Dr. Jo regular basis who had double pancreas and kidney transplant who apparently developed to have worsening shortness of breath and dyspnea for the last 1-2 weeks become much worse with productive sputum was in see Dr. Jo on 07/14/2017 with him been hypoxic symptomatic and clinically had pneumonia she ended up sending him to [facility] department at [facility] was seen and evaluated x-ray showed right lower lobe infiltrate patient was having inspiratory expiratory wheezes significant hypoxia with his immunosuppressive condition been on transfer medication patient was admitted to the hospital started on IV antibiotic increase his steroid and kept him on bronchodilator this point. Patient was seen quickly by pulmonary last night and agree with the current management and he is on double coverage for gram-negative with Levaquin and Zosyn. 07/16: Patient has been seen and followed by Dr. Carson for multifocal pneumonia with plan to continue Zosyn and Levaquin. Legionella testing ordered. Patient is followed by Dr. 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 Lasix is on hold. Normal saline via 50 mL per hour and magnesium replaced. Patient is followed by Dr. Scherer and she has ordered echocardiogram to evaluate pericardial effusion. Report is currently pending. Comprehensive viral panel has been ordered but not obtained. Nursing updated that this is needed. Blood culture is showing no growth at 24 hours. Sputum cultures uncollected. Patient is scheduled for bronchoscopy with BAL tomorrow morning. Patient states he does not have any shortness of breath at this time. No cough. He has been afebrile. Blood pressure 151/79, pulse ox 97 % on CPAP. 07/17: Patient is out of his room for bronchoscopy and BAL with Dr. Scherer. 07/18:Dr. Adhikari has stated that CellCept was held as of July 17 and prednisone was increased to 10 mg. Prednisone will be decreased to 5 mg in 7 days once his infection improves. Patient is instructed to follow-up with nephrology when to resume CellCept. pathology and cultures from bronchoscopy around in process.patient is followed by pulmonary medicine and infectious disease. Patient's breathing status is much improved and we'll plan for discharge home today in stable condition. Discharge diagnoses: 1 Acute respiratory distress due to right lower lobe pneumonia, probable gram- negative pneumonia. 2 Bilateral pneumonia: Most likely aspiration and gram-negative 3 Arrhythmia 4 Double kidney and pancreas transplant 5 History of type 1 diabetes: Post pancreas transplant 6 History of obstructive sleep apnea: Has been on CPAP 7 Hypertension 8 Hyperlipidemia 9 History of skin cancer Discharge plan: Return home Impression and plan of care have been directed as dictated by the signing physician. Chata Garcia nurse practitioner acting as scribe for signing physician. Patient Condition at Discharge: Good Plan - Discharge Summary Discharge Rx Participant: No New Discharge Prescriptions: New Levofloxacin [Levaquin] 750 mg PO Q24H #5 tab predniSONE 10 mg PO HS #7 tab Continue Pravastatin Sodium [Pravachol] 20 mg PO DAILY Furosemide [Lasix] 40 mg PO DAILY Sodium Bicarbonate Tab 1,950 mg PO BID Tacrolimus [Prograf] 0.5 mg PO HS Labetalol HCl [Trandate] 800 mg PO BID amLODIPine [Norvasc] 5 mg PO BID Fluticasone Propionate 2 spray EA NOSTRIL DAILY PRN PRN Reason: Allergy Symptoms Lansoprazole 30 mg PO DAILY Fluorouracil [Efudex] 1 applicate TOPICAL BID PRN PRN Reason: Rash Ergocalciferol (Vitamin D2) [Drisdol] 50,000 unit PO QMONTH Acitretin [Soriatane] 25 mg PO DAILY Tacrolimus [Prograf] 1 mg PO DAILY Calcitriol [Rocaltrol] 0.25 mcg PO DAILY Triamcinolone 0.025% Cream [Kenalog 0.025% Cream] 1 dose TOPICAL BID PRN PRN Reason: Rash Mycophenolate Mofetil [Cellcept] 500 mg PO BID #0 predniSONE 5 mg PO HS #0 Discontinued Amoxicillin 2,000 mg PO DIRECTED PRN PRN Reason: Pre-Op Discharge Medication List Furosemide [Lasix] 40 mg PO DAILY 11/23/13 [History] Labetalol HCl [Trandate] 800 mg PO BID 11/23/13 [History] Pravastatin Sodium [Pravachol] 20 mg PO DAILY 11/23/13 [History] Sodium Bicarbonate Tab 1,950 mg PO BID 11/23/13 [History] Tacrolimus [Prograf] 0.5 mg PO HS 11/23/13 [History] Fluticasone Propionate 2 spray EA NOSTRIL DAILY PRN 10/10/17 [History] amLODIPine [Norvasc] 5 mg PO BID 10/10/17 [History] Acitretin [Soriatane] 25 mg PO DAILY 07/14/18 [History] Calcitriol [Rocaltrol] 0.25 mcg PO DAILY 07/14/18 [History] Ergocalciferol (Vitamin D2) [Drisdol] 50,000 unit PO QMONTH 07/14/18 [History] Fluorouracil [Efudex] 1 applicate TOPICAL BID PRN 07/14/18 [History] Lansoprazole 30 mg PO DAILY 07/14/18 [History] Tacrolimus [Prograf] 1 mg PO DAILY 07/14/18 [History] Triamcinolone 0.025% Cream [Kenalog 0.025% Cream] 1 dose TOPICAL BID PRN [History] Levofloxacin [Levaquin] 750 mg PO Q24H #5 tab 07/18/18 [Rx] Mycophenolate Mofetil [Cellcept] 500 mg PO BID #0 07/18/18 [Rx] predniSONE 5 mg PO HS #0 07/18/18 [Rx] predniSONE 10 mg PO HS #7 tab 07/18/18 [Rx] Follow up Appointment(s)/Referral(s): Elisa Scherer DO [Doctor of Osteopathic Medicine] - 07/25/18 10:15 am (at the [employer] office) Sujit Cartagean MD [Primary Care Provider] - 07/28/18 2:30 pm Patient Instructions/Handouts: Pneumonia (DC) Discharge Disposition: HOME SELF-CARE
--- NOTE | 2018-07-21 15:52 | ECHOF ---
Referral Reason:pericardial effusion MEASUREMENTS -------- HEIGHT: 170.2 cm WEIGHT: 74.8 kg BP: IVSd: 1.3 cm (0.6 - 1.1) LVIDd: 4.3 cm (3.9 - 5.3) LVPWd: 1.5 cm (0.6 - 1.1) IVSs: 1.6 cm LVIDs: 3.4 cm LVPWs: 1.5 cm LA Diam: 5.1 cm (2.7 - 3.8) RVIDd: 3.0 cm (< 3.3) LAESV Index (A-L): 31.76 ml/m Ao Diam: 3.0 cm (2.0 - 3.7) LA Diam: 5.0 cm (2.7 - 3.8) AV Cusp: 2.0 cm (1.5 - 2.6) EPSS: 0.4 cm MV E Anthony: 1.27 m/s MV DecT: 238 ms MV A Anthony: 0.80 m/s MV E/A Ratio: 1.59 RAP: 5.00 mmHg RVSP: 28.26 mmHg MV EF SLOPE: 105.27 mm/s (70 - 150) MV EXCURSION: 21.87 mm (> 18.000) FINDINGS -------- Sinus rhythm. This was a technically good study. The left ventricular size is normal. There is mild concentric left ventricular hypertrophy. Overa ll left ventricular systolic function is normal with, an EF between 55 - 60 %. The right ventricle is normal in size. The left atrial size is normal. LA is moderately dilated 34-39 ml/m2 The right atrial size is normal. The aortic valve is trileaflet, and appears structurally normal. No aortic stenosis or regurgitation. Mild mitral regurgitation is present. Mild tricuspid regurgitation present. There is no evidence of pulmonary hypertension. The right v entricular systolic pressure, as measured by Doppler, is 28.26mmHg. Trace/mild (physiologic) pulmonic regurgitation. The aortic root size is normal. There is a small, generalized pericardial effusion present. CONCLUSIONS -------- 1. The left ventricular size is normal. 2. There is mild concentric left ventricular hypertrophy. 3. Overall left ventricular systolic function is normal with, an EF between 55 - 60 %. 4. The right ventricle is normal in size. 5. The left atrial size is normal. 6. LA is moderately dilated 34-39 ml/m2 7. The right atrial size is normal. 8. The aortic valve is trileaflet, and appears structurally normal. No aortic stenosis or regurgitati on. 9. Mild mitral regurgitation is present. 10. Mild tricuspid regurgitation present. 11. There is no evidence of pulmonary hypertension. 12. The right ventricular systolic pressure, as measured by Doppler, is 28.26mmHg. 13. Trace/mild (physiologic) pulmonic regurgitation. 14. The aortic root size is normal. 15. There is a small, generalized pericardial effusion present. RADIATOR CORE TESTER: Yelena Nava RDCS
== END 2018-07-18 12:01 | disposition home or self-care (01) | DRG 177 ==
LOC: EC 13:40 → 4MS4W 16:57 → OBSVTOIN 07-16 10:33
PROVIDERS: ADMIT Internal Medicine Geriatric Medicine; ATTEND Internal Medicine Geriatric Medicine
PROC: 5A09457 Assistance with Respiratory Ventilation, 24-96 Consecutive Hours, Continuous Positive Airway Pressure (ICD-10-PCS; 2018-07-16)
PROC: 0BD68ZX Extraction of Right Lower Lobe Bronchus, Via Natural or Artificial Opening Endoscopic, Diagnostic (ICD-10-PCS; 2018-07-17)
PROC: 0B9J8ZX Drainage of Left Lower Lung Lobe, Via Natural or Artificial Opening Endoscopic, Diagnostic (ICD-10-PCS; principal; 2018-07-17 09:30)
PROC: 0B9F8ZX Drainage of Right Lower Lung Lobe, Via Natural or Artificial Opening Endoscopic, Diagnostic (ICD-10-PCS; 2018-07-17 09:30)
DX: J15.6 Pneumonia due to other Gram-negative bacteria (principal); J96.01 Acute respiratory failure with hypoxia; Z94.0 Kidney transplant status; I13.0 Hypertensive heart and chronic kidney disease with heart failure and stage 1 through stage 4 chronic kidney disease, or unspecified chronic kidney disease; E87.2 Acidosis; I31.3 Pericardial effusion (noninflammatory); J44.0 Chronic obstructive pulmonary disease with (acute) lower respiratory infection; Z94.83 Pancreas transplant status; J69.0 Pneumonitis due to inhalation of food and vomit; I50.9 Heart failure, unspecified; G62.9 Polyneuropathy, unspecified; N18.3 Chronic kidney disease, stage 3 (moderate); G47.33 Obstructive sleep apnea (adult) (pediatric); E78.5 Hyperlipidemia, unspecified; M14.679 Charcot's joint, unspecified ankle and foot; M19.90 Unspecified osteoarthritis, unspecified site; R21 Rash and other nonspecific skin eruption; I49.9 Cardiac arrhythmia, unspecified; Y83.0 Surgical operation with transplant of whole organ as the cause of abnormal reaction of the patient, or of later complication, without mention of misadventure at the time of the procedure; Z79.899 Other long term (current) drug therapy; Z79.52 Long term (current) use of systemic steroids; Z85.828 Personal history of other malignant neoplasm of skin; Z96.652 Presence of left artificial knee joint; Z98.41 Cataract extraction status, right eye; Z96.1 Presence of intraocular lens; Z86.39 Personal history of other endocrine, nutritional and metabolic disease; Z98.42 Cataract extraction status, left eye; Z82.3 Family history of stroke; Z80.0 Family history of malignant neoplasm of digestive organs; Z83.3 Family history of diabetes mellitus
CPT/HCPCS: 31623; 31624; 36415; 71046; 71250; 80048; 80053; 82550; 82553; 83036; 83735; 83880; 84484; 85025; 85610; 85730; 87040; 87070; 87102; 87116; 87205; 87206; 87252; 87449; 87496; 87498; 87502; 87529; 87634; 87798; 88104; 88108; 88305; 93005; 93306; 94640; 94760; 96365; 96366; 99285

== ENCOUNTER 2018-08-06 10:30 | Emergency (ER) | payer BC ==
[2018-08-06] MEDS ORDERED: SODIUM CHLORIDE 0.9% 1,000 ML IV STA (11:22)
--- NOTE | 2018-08-06 11:25 | ED ---
General Adult HPI - General Chief complaint: Shortness of Breath Stated complaint: STONE, Hx PNEUMONIA, CHEST TIGHT Time Seen by Provider: 08/06/18 11:07 Source: patient Mode of arrival: wheelchair Limitations: no limitations - History of Present Illness Initial comments: Dictation was produced using [employer] dictation software. please excuse any grammatical, word or spelling errors. Chief Complaint: 53-year-old male past medical history of pancreatic and kidney transplant presents with dyspnea. History of Present Illness: Patient is a 53-year-old male with history of multiple organ transplant presents with dyspnea. Patient was recently admitted and discharged from the hospital for bilateral pneumonia. Patient is on multiple immunosuppressive medications. He states that after being discharged she did still have some shortness of breath. Over the last 2 days and shortness of breath acutely worsened. Chart review shows that patient was admitted to the hospital had bronchoscopy with likely gram-negative organisms. Patient's transplant physician is Dr. Adhikari hatchery man. Patient denies any pain complaints at this time. He did have a CT which showed multifocal bronchopneumonia. Patient also had echocardiogram showed moderate pericardial effusion. There is no evidence of tampon on. The ROS documented in this emergency department record has been reviewed and confirmed by me. Those systems with pertinent positive or negative responses have been documented in the HPI. All other systems are other negative and/or noncontributory. PHYSICAL EXAM: General Impression: Alert and oriented x3, not in acute distress HEENT: Normocephalic atraumatic, extra-ocular movements intact, pupils equal and reactive to light bilaterally, mucous membranes moist. Cardiovascular: Heart regular rate and rhythm, S1&S2 audible, no murmurs, rubs or gallops Chest: Bilateral lung and expiratory wheezing Abdomen: Bowel sounds present, abdomen soft, non-tender, non-distended, no organomegaly Musculoskeletal: Pulses present and equal in all extremities, no peripheral edema Motor: Power 5/5 bilaterally, no focal deficits noted Neurological: CN II-XII grossly intact, no focal motor or sensory deficits noted Skin: Diffuse nonspecific dermatitis Psych: Normal affect and mood ED course: 53-year-old male with history of multiple organ transplant presents with persistent dyspnea after being admitted for discharge to weeks ago. Vital signs upon arrival shows hypoxia 89, worse vital signs within acceptable limits. Clinically patient's HPI is consistent with pneumonia. Laboratory evaluation obtained. Leukocytosis 11.9 rest of CBC unremarkable. Coag panel unremarkable. Metabolic panel per is to be within patient's baseline. Urinalysis is showing 6 white blood cells. Blood cultures and urine cultures were obtained. Chest x-ray was obtained showing persistent diffuse bilateral areas of consolidation which differential includes pulmonary edema versus diffuse pneumonia. Repeat vitals were obtained patient spiking low-grade temperature. Discussed this case with Dr. Braeden beck who recommended that patient be transferred to a transplant center. discussed patient case with Dr. Krueger at [facility] who is willing to accept the ER to ER transfer. EKG interpretation: Ventricular rate 77, normal sinus rhythm, KS interval 164, QRS 84, QTC 484. No KS prolongation, no QTC prolongation, no ST or T-wave changes noted. s. Overall, this EKG is unremarkable - Related Data Home Medications Medication Instructions Recorded Confirmed Furosemide [Lasix] 40 mg PO DAILY 11/23/13 08/06/18 Labetalol HCl [Trandate] 800 mg PO BID 11/23/13 08/06/18 Pravastatin Sodium [Pravachol] 20 mg PO DAILY 11/23/13 08/06/18 Sodium Bicarbonate Tab 1,950 mg PO BID 11/23/13 08/06/18 Tacrolimus [Prograf] 0.5 mg PO HS 11/23/13 08/06/18 Fluticasone Propionate 2 spray EA NOSTRIL DAILY PRN 10/10/17 08/06/18 amLODIPine [Norvasc] 5 mg PO BID 10/10/17 08/06/18 Acitretin [Soriatane] 25 mg PO DAILY 07/14/18 08/06/18 Calcitriol [Rocaltrol] 0.25 mcg PO DAILY 07/14/18 08/06/18 Ergocalciferol (Vitamin D2) 50,000 unit PO QMONTH 07/14/18 08/06/18 [Drisdol] Lansoprazole 30 mg PO DAILY 07/14/18 08/06/18 Tacrolimus [Prograf] 1 mg PO DAILY 07/14/18 08/06/18 Acetaminophen [Tylenol] 500 mg PO Q8HR 08/06/18 08/06/18 Previous Rx's Medication Instructions Recorded Mycophenolate Mofetil [Cellcept] 500 mg PO BID #0 07/18/18 predniSONE 5 mg PO HS #0 07/18/18 Allergies Allergy/AdvReac Type Severity Reaction Status Date / Time No Known Allergies Allergy Verified 08/06/18 11:15 Review of Systems ROS Statement: Those systems with pertinent positive or pertinent negative responses have been documented in the HPI. ROS Other: All systems not noted in ROS Statement are negative. Past Medical History Past Medical History: Cancer, Heart Failure, Hyperlipidemia, Hypertension, Osteoarthritis (OA), Renal Disease, Sleep Apnea/CPAP/BIPAP Additional Past Medical History / Comment(s): ARDS, hx of DM was tx for dm from age 9 to age 35(had pancareas transplant), uses cpap machine, basal and squamous cell skin cancer, hx rt elbow broken-(sx), charcots foot History of Any Multi-Drug Resistant Organisms: None Reported Past Surgical History: Hernia Repair, Joint Replacement Additional Past Surgical History / Comment(s): kidney and pancreas transplant , L knee replacment, rt elbow sx has 7 screws,cataracts removed-lens implants, laser eye sx for retinopathy, fernando foot sx(rt foot bone gravt and lt foot bone shaved) Past Anesthesia/Blood Transfusion Reactions: No Reported Reaction Past Psychological History: No Psychological Hx Reported Smoking Status: Never smoker Past Alcohol Use History: Occasional Past Drug Use History: None Reported - Past Family History Mother Family Medical History: Cancer, Diabetes Mellitus Additional Family Medical History / Comment(s): liver cancer Father Family Medical History: CVA/TIA Additional Family Medical History / Comment(s): was smoker had ctroke in his 30' s General Exam Limitations: no limitations Course Vital Signs 08/06/18 08/06/18 10:43 13:36 Temperature 98.4 F 100.7 F H Pulse Rate 79 83 Respiratory 20 20 Rate Blood Pressure 126/73 142/71 O2 Sat by Pulse 89 L 92 L Oximetry Medical Decision Making - Lab Data Result diagrams: 08/06/18 11:36 08/06/18 11:36 Lab Results 08/06/18 08/06/18 08/06/18 Range/Units 11:36 11:36 11:36 WBC 11.9 H (3.8-10.6) k/uL RBC 4.26 L (4.30-5.90) m/uL Hgb 12.3 L (13.0-17.5) gm/dL Hct 36.3 L (39.0-53.0) % MCV 85.2 (80.0-100.0) fL MCH 28.8 (25.0-35.0) pg MCHC 33.8 (31.0-37.0) g/dL RDW 14.5 (11.5-15.5) % Plt Count 265 (150-450) k/uL Neutrophils % 85 % Lymphocytes % 4 % Monocytes % 9 % Eosinophils % 1 % Basophils % 0 % Neutrophils # 10.1 H (1.3-7.7) k/uL Lymphocytes # 0.5 L (1.0-4.8) k/uL Monocytes # 1.1 H (0-1.0) k/uL Eosinophils # 0.1 (0-0.7) k/uL Basophils # 0.0 (0-0.2) k/uL PT (9.0-12.0) sec INR (<1.2) APTT (22.0-30.0) sec Sodium 137 (137-145) mmol/L Potassium 3.9 (3.5-5.1) mmol/L Chloride 105 (98-107) mmol/L Carbon Dioxide 22 (22-30) mmol/L Anion Gap 10 mmol/L BUN 25 H (9-20) mg/dL Creatinine 1.41 H (0.66-1.25) mg/dL Est GFR (CKD-EPI)AfAm 65 (>60 ml/min/1.73 sqM) Est GFR (CKD-EPI)NonAf 56 (>60 ml/min/1.73 sqM) Glucose 109 H (74-99) mg/dL Calcium 8.8 (8.4-10.2) mg/dL Magnesium 1.6 (1.6-2.3) mg/dL Total Bilirubin 1.9 H (0.2-1.3) mg/dL AST 55 (17-59) U/L ALT 79 H (21-72) U/L Alkaline Phosphatase 276 H (38-126) U/L Total Creatine Kinase 45 L (55-170) U/L CK-MB (CK-2) 0.4 (0.0-2.4) ng/mL CK-MB (CK-2) Rel Index 0.9 Troponin I <0.012 (0.000-0.034) ng/mL NT-Pro-B Natriuret Pep pg/mL Total Protein 6.4 (6.3-8.2) g/dL Albumin 3.5 (3.5-5.0) g/dL Urine Color Urine Appearance (Clear) Urine pH (5.0-8.0) Ur Specific [place] (1.001-1.035) Urine Protein (Negative) Urine Glucose (UA) (Negative) Urine Ketones (Negative) Urine Blood (Negative) Urine Nitrite (Negative) Urine Bilirubin (Negative) Urine Urobilinogen (<2.0) mg/dL Ur Leukocyte Esterase (Negative) Urine RBC (0-5) /hpf Urine WBC (0-5) /hpf Ur Squamous Epith Cells (0-4) /hpf Urine Bacteria (None) /hpf Urine Mucus (None) /hpf 08/06/18 08/06/18 08/06/18 Range/Units 11:36 11:36 11:36 WBC (3.8-10.6) k/uL RBC (4.30-5.90) m/uL Hgb (13.0-17.5) gm/dL Hct (39.0-53.0) % MCV (80.0-100.0) fL MCH (25.0-35.0) pg MCHC (31.0-37.0) g/dL RDW (11.5-15.5) % Plt Count (150-450) k/uL Neutrophils % % Lymphocytes % % Monocytes % % Eosinophils % % Basophils % % Neutrophils # (1.3-7.7) k/uL Lymphocytes # (1.0-4.8) k/uL Monocytes # (0-1.0) k/uL Eosinophils # (0-0.7) k/uL Basophils # (0-0.2) k/uL PT 10.5 (9.0-12.0) sec INR 1.0 (<1.2) APTT 27.2 (22.0-30.0) sec Sodium (137-145) mmol/L Potassium (3.5-5.1) mmol/L Chloride (98-107) mmol/L Carbon Dioxide (22-30) mmol/L Anion Gap mmol/L BUN (9-20) mg/dL Creatinine (0.66-1.25) mg/dL Est GFR (CKD-EPI)AfAm (>60 ml/min/1.73 sqM) Est GFR (CKD-EPI)NonAf (>60 ml/min/1.73 sqM) Glucose (74-99) mg/dL Calcium (8.4-10.2) mg/dL Magnesium (1.6-2.3) mg/dL Total Bilirubin (0.2-1.3) mg/dL AST (17-59) U/L ALT (21-72) U/L Alkaline Phosphatase (38-126) U/L Total Creatine Kinase (55-170) U/L CK-MB (CK-2) (0.0-2.4) ng/mL CK-MB (CK-2) Rel Index Troponin I (0.000-0.034) ng/mL NT-Pro-B Natriuret Pep 2380 pg/mL Total Protein (6.3-8.2) g/dL Albumin (3.5-5.0) g/dL Urine Color Yellow Urine Appearance Cloudy (Clear) Urine pH 7.0 (5.0-8.0) Ur Specific [place] 1.010 (1.001-1.035) Urine Protein 1+ H (Negative) Urine Glucose (UA) Negative (Negative) Urine Ketones Negative (Negative) Urine Blood Negative (Negative) Urine Nitrite Negative (Negative) Urine Bilirubin Negative (Negative) Urine Urobilinogen <2.0 (<2.0) mg/dL Ur Leukocyte Esterase Large H (Negative) Urine RBC 2 (0-5) /hpf Urine WBC 6 H (0-5) /hpf Ur Squamous Epith Cells <1 (0-4) /hpf Urine Bacteria Rare H (None) /hpf Urine Mucus Rare H (None) /hpf Disposition Clinical Impression: Dyspnea, Pneumonia, Transplant recipient Disposition: OTHER INSTITUTION NOT DEFINED Condition: Fair Referrals: Sujit Cartagena MD [Primary Care Provider] - 1-2 days Time of Disposition: 13:50 - Out of Hospital Transfer - Req. Specs Out of Hospital Transfer - Requested Specifics: Other Emergency Center ( [facility]
--- NOTE | 2018-08-06 11:55 | XR ---
EXAMINATION TYPE: XR chest 2V DATE OF EXAM: 08/06/2018 COMPARISON: 07/15/2018 TECHNIQUE: PA and lateral views submitted. HISTORY: Cough FINDINGS: Heart is markedly enlarged and there is persistent bilateral areas of consolidation. Apical pleural t hickening and tiny pleural effusions. Degenerative change of the spine. Hyperinflation suggests possi ble underlying COPD. IMPRESSION: 1. Persistent diffuse bilateral areas of consolidation slightly progressed from the prior exam. Diffe rential includes pulmonary edema versus diffuse pneumonia.
[2018-08-06 11:58] LABS: Basophils % (A) 0 %; Eosinophils # (A) 0.1 k/uL (0-0.7); Eosinophils % (A) 1 %; HCT 36.3 % (39.0-53.0); HGB 12.3 gm/dL (13.0-17.5); Lymphocytes # (A) 0.5 k/uL (1.0-4.8); Lymphocytes % (A) 4 %; MCH 28.8 pg (25.0-35.0); MCHC 33.8 g/dL (31.0-37.0); MCV 85.2 fL (80.0-100.0); Mean Platelet Volume 7.1; Monocytes # (A) 1.1 k/uL (0-1.0); Monocytes % (A) 9 %; Neutrophils # (A) 10.1 k/uL (1.3-7.7); Neutrophils % (A) 85 %; Platelet Count 265 k/uL (150-450); RBC 4.26 m/uL (4.30-5.90); RDW 14.5 % (11.5-15.5); WBC 11.9 k/uL (3.8-10.6)
[2018-08-06 11:59] LABS: Appearance,Urine Cloudy (Clear); Bacteria,Urine Rare /hpf; Bilirubin,Urine Negative (Negative); Blood,Urine Negative (Negative); Color,Urine Yellow; Glucose,Urine (UA) Negative (Negative); Ketones,Urine Negative (Negative); Leukocyte Esterase,Urine Large (Negative); Mucus,Urine Rare /hpf; Nitrite,Urine Negative (Negative); Protein,Urine 1+ (Negative); RBC,Urine 2 /hpf (0-5); Squamous Epithelial Cell,Urine <1 /hpf (0-4); Urobilinogen,Urine <2.0 mg/dL (<2.0)
[2018-08-06 12:03] LABS: Partial Thromboplastin Time 27.2 sec (22.0-30.0); Prothrombin Time 10.5 sec (9.0-12.0)
[2018-08-06 12:04] LABS: Albumin 3.5 g/dL (3.5-5.0); Calcium 8.8 mg/dL (8.4-10.2); Magnesium 1.6 mg/dL (1.6-2.3); Potassium 3.9 mmol/L (3.5-5.1); Total Bilirubin 1.9 mg/dL (0.2-1.3); Total Protein 6.4 g/dL (6.3-8.2)
[2018-08-06 12:21] LABS: Creatine Kinase 45 U/L (55-170)
[2018-08-06 12:33] LABS: Creatine Kinase MB 0.4 ng/mL (0.0-2.4); Troponin I <0.012 ng/mL (0.000-0.034)
[2018-08-06] MEDS ORDERED: AZITHROMYCIN 500 MG in SODIUM CHLORIDE 0.9% 250 ML IVPB STA (12:47)
[2018-08-06] MEDS ORDERED: CEFEPIME 2 GM in SODIUM CHLORIDE 0.9% 100 ML IVPB STA (12:48)
[2018-08-06] MEDS ORDERED: VANCOMYCIN 1,500 MG in SODIUM CHLORIDE 0.9% 250 ML IVPB STA (12:50)
[2018-08-06] MEDS ORDERED: VANCOMYCIN IV PER PHARMACY 1 EACH MISC MISCELLANE PRN (12:56)
[2018-08-06] MEDS ORDERED: ACETAMINOPHEN TAB 500 MG TAB PO STA (13:41)
[2018-08-06 15:07] VITALS: RESP 18
[2018-08-06 15:12] VITALS: BP 137/79; PULSE 79; TEMP 100.5
[2018-08-07] MEDS ORDERED: VANCOMYCIN 1,500 MG in SODIUM CHLORIDE 0.9% 250 ML IVPB SCH (06:00)
== END 2018-08-06 15:25 | disposition other institution (70) ==
LOC: EC 10:30
DX: J18.9 Pneumonia, unspecified organism (principal); D72.829 Elevated white blood cell count, unspecified; I11.0 Hypertensive heart disease with heart failure; I50.9 Heart failure, unspecified; E78.5 Hyperlipidemia, unspecified; M19.90 Unspecified osteoarthritis, unspecified site; G47.30 Sleep apnea, unspecified; Z99.89 Dependence on other enabling machines and devices; Z85.828 Personal history of other malignant neoplasm of skin; Z94.0 Kidney transplant status; Z96.652 Presence of left artificial knee joint; Z94.83 Pancreas transplant status; Z79.899 Other long term (current) drug therapy
CPT/HCPCS: 36415; 93005; 83880; 80053; 82550; 82553; 83735; 84484; 85025; 85610; 85730; 81001; 87086; 71046; 99285; 96365; 96368; 96361 ×2; J3370; J0456; J0692

== ENCOUNTER 2018-09-18 18:54 | Emergency (ER) | payer BC ==
[2018-09-18 19:05] VITALS: TEMP 98.2
[2018-09-18 19:14] LABS: Anisocytosis Slight; Basophils % (A) 0 %; Eosinophils # (A) 0.1 k/uL (0-0.7); Eosinophils % (A) 1 %; HCT 30.4 % (39.0-53.0); HGB 9.9 gm/dL (13.0-17.5); Hypochromasia Slight; Lymphocytes # (A) 0.7 k/uL (1.0-4.8); Lymphocytes % (A) 11 %; MCH 26.5 pg (25.0-35.0); MCHC 32.5 g/dL (31.0-37.0); MCV 81.4 fL (80.0-100.0); Mean Platelet Volume 8.1; Monocytes # (A) 0.4 k/uL (0-1.0); Monocytes % (A) 6 %; Neutrophils # (A) 5.3 k/uL (1.3-7.7); Neutrophils % (A) 81 %; Platelet Count 305 k/uL (150-450); Poikilocytosis Slight; RBC 3.73 m/uL (4.30-5.90); RDW 17.6 % (11.5-15.5); WBC 6.6 k/uL (3.8-10.6)
--- NOTE | 2018-09-18 19:21 | ED ---
Seizure HPI - General Chief Complaint: Seizure Stated Complaint: seizure Time Seen by Provider: 09/18/18 19:06 Source: patient, EMS, RN notes reviewed, old records reviewed Mode of arrival: EMS Limitations: physical limitation - History of Present Illness Initial Comments: This is a 33-year-old male the ER for eversion still activity unwitnessed. Son male witness is not here currently. Patient's with here in relatively sick for quite some time, months. Patient states he feels normal now would like to be discharged only sick of being in hospitals in the hospital rfor 3 straight months. Patient was recently released yesterday, no recent new medications. Denies drugs or alcohol. No headache. No fevers MD Complaint: seizure, possible seizure -: minutes(s) Description of Episode: loss of consciousness Witnessed: yes - by bystander Trauma: No Seizure History: none Place: home Possible Precipitating Event: none Associated Symptoms: denies other symptoms Treatments Prior to Arrival: none - Related Data Home Medications Medication Instructions Recorded Confirmed Labetalol HCl [Trandate] 800 mg PO BID 11/23/13 09/18/18 Pravastatin Sodium [Pravachol] 20 mg PO HS 11/23/13 09/18/18 Sodium Bicarbonate Tab 650 mg PO TID 11/23/13 09/18/18 Tacrolimus [Prograf] 0.5 mg PO HS 11/23/13 09/18/18 Ergocalciferol (Vitamin D2) 50,000 unit PO SA 07/14/18 09/18/18 [Drisdol] Lansoprazole 30 mg PO AC-BRKFST 07/14/18 09/18/18 Tacrolimus [Prograf] 1 mg PO DAILY 07/14/18 09/18/18 Acetaminophen Tab [Tylenol Tab] 650 mg PO Q4H PRN 09/18/18 09/18/18 Apixaban [Eliquis] 5 mg PO BID 09/18/18 09/18/18 Azelastine HCl [Astepro] 1 spray EA NOSTRIL DAILY PRN 09/18/18 09/18/18 Doxycycline [Vibramycin] 100 mg PO BID 09/18/18 09/18/18 Guaifenesin/Dextromethorphan 10 ml PO Q6H PRN 09/18/18 09/18/18 [guaiFENesin DM] Ipratropium-Albuterol Nebulize 3 ml INHALATION RT-QID 09/18/18 09/18/18 [Duoneb 0.5 mg-3 mg/3 ml Soln] Loratadine [Claritin] 10 mg PO DAILY PRN 09/18/18 09/18/18 Nystatin 100,000 Unit/ml Susp 500,000 unit PO QID 09/18/18 09/18/18 [Mycostatin Oral Susp] Tamsulosin [Flomax] 0.4 mg PO HS 09/18/18 09/18/18 guaiFENesin [guaiFENesin Oral 100 mg PO Q4H PRN 09/18/18 09/18/18 Solution] predniSONE 15 mg PO DAILY 09/18/18 09/18/18 Previous Rx's Medication Instructions Recorded Mycophenolate Mofetil [Cellcept] 500 mg PO BID #0 07/18/18 Allergies Allergy/AdvReac Type Severity Reaction Status Date / Time No Known Allergies Allergy Verified 09/18/18 19:30 Review of Systems ROS Statement: Those systems with pertinent positive or pertinent negative responses have been documented in the HPI. ROS Other: All systems not noted in ROS Statement are negative. Past Medical History Past Medical History: Cancer, Heart Failure, Hyperlipidemia, Hypertension, Osteoarthritis (OA), Renal Disease, Sleep Apnea/CPAP/BIPAP Additional Past Medical History / Comment(s): ARDS, hx of DM was tx for dm from age 9 to age 35(had pancareas transplant), uses cpap machine, basal and squamous cell skin cancer, hx rt elbow broken-(sx), charcots foot History of Any Multi-Drug Resistant Organisms: None Reported Past Surgical History: Hernia Repair, Joint Replacement Additional Past Surgical History / Comment(s): kidney and pancreas transplant , L knee replacment, rt elbow sx has 7 screws,cataracts removed-lens implants, laser eye sx for retinopathy, fernando foot sx(rt foot bone gravt and lt foot bone shaved) Past Anesthesia/Blood Transfusion Reactions: No Reported Reaction Past Psychological History: No Psychological Hx Reported Smoking Status: Never smoker Past Alcohol Use History: Occasional Past Drug Use History: None Reported - Past Family History Mother Family Medical History: Cancer, Diabetes Mellitus Additional Family Medical History / Comment(s): liver cancer Father Family Medical History: CVA/TIA Additional Family Medical History / Comment(s): was smoker had ctroke in his 30's General Exam Limitations: physical limitation General appearance: alert, in no apparent distress Head exam: Present: atraumatic, normocephalic, normal inspection Eye exam: Present: normal appearance, PERRL, EOMI. Absent: scleral icterus, conjunctival injection, periorbital swelling ENT exam: Present: normal exam, mucous membranes moist Neck exam: Present: normal inspection. Absent: tenderness, meningismus, lymphadenopathy Respiratory exam: Present: normal lung sounds bilaterally. Absent: respiratory distress, wheezes, rales, rhonchi, stridor Cardiovascular Exam: Present: regular rate, normal rhythm, normal heart sounds. Absent: systolic murmur, diastolic murmur, rubs, gallop, clicks GI/Abdominal exam: Present: soft, normal bowel sounds. Absent: distended, tenderness, guarding, rebound, rigid Extremities exam: Present: normal inspection, full ROM, normal capillary refill. Absent: tenderness, pedal edema, joint swelling, calf tenderness Back exam: Present: normal inspection Neurological exam: Present: alert, oriented X3, CN II-XII intact Psychiatric exam: Present: normal affect, normal mood Skin exam: Present: warm, dry, intact, normal color. Absent: rash Course Vital Signs 09/18/18 09/18/18 19:00 20:33 Temperature 98.2 F Pulse Rate 76 78 Respiratory 18 16 Rate Blood Pressure 168/86 120/88 O2 Sat by Pulse 99 Oximetry - Reevaluation(s) Reevaluation #1: Medical record is reviewed, no recurrent seizure-like activity Medical Decision Making - Medical Decision Making 53 male the ER with no history of CAD coming in with new onset seizure. Multiple medications. refusing hospital admission as he been the hospital for the last 2 months, patient has no seizure activity here in the ER and can be and would like to be discharged home - Lab Data Result diagrams: 09/18/18 18:57 09/18/18 18:57 Lab Results 09/18/18 09/18/18 09/18/18 Range/Units 18:57 18:57 19:30 WBC 6.6 (3.8-10.6) k/uL RBC 3.73 L (4.30-5.90) m/uL Hgb 9.9 L (13.0-17.5) gm/dL Hct 30.4 L (39.0-53.0) % MCV 81.4 (80.0-100.0) fL MCH 26.5 (25.0-35.0) pg MCHC 32.5 (31.0-37.0) g/dL RDW 17.6 H (11.5-15.5) % Plt Count 305 (150-450) k/uL Neutrophils % 81 % Lymphocytes % 11 % Monocytes % 6 % Eosinophils % 1 % Basophils % 0 % Neutrophils # 5.3 (1.3-7.7) k/uL Lymphocytes # 0.7 L (1.0-4.8) k/uL Monocytes # 0.4 (0-1.0) k/uL Eosinophils # 0.1 (0-0.7) k/uL Basophils # 0.0 (0-0.2) k/uL Hypochromasia Slight Poikilocytosis Slight Anisocytosis Slight Sodium 131 L (137-145) mmol/L Potassium 5.6 H (3.5-5.1) mmol/L Chloride 109 H (98-107) mmol/L Carbon Dioxide 13 L (22-30) mmol/L Anion Gap 9 mmol/L BUN 24 H (9-20) mg/dL Creatinine 1.93 H (0.66-1.25) mg/dL Est GFR (CKD-EPI)AfAm 44 (>60 ml/min/1.73 sqM) Est GFR (CKD-EPI)NonAf 38 (>60 ml/min/1.73 sqM) Glucose 111 H (74-99) mg/dL Calcium 8.9 (8.4-10.2) mg/dL Phosphorus 4.3 (2.5-4.5) mg/dL Magnesium 1.7 (1.6-2.3) mg/dL Total Bilirubin 0.7 (0.2-1.3) mg/dL AST 19 (17-59) U/L ALT 26 (21-72) U/L Alkaline Phosphatase 235 H (38-126) U/L Total Protein 6.2 L (6.3-8.2) g/dL Albumin 3.2 L (3.5-5.0) g/dL Urine Color Yellow Urine Appearance Clear (Clear) Urine pH 8.0 (5.0-8.0) Ur Specific [place] 1.009 (1.001-1.035) Urine Protein 1+ H (Negative) Urine Glucose (UA) Negative (Negative) Urine Ketones Negative (Negative) Urine Blood Trace H (Negative) Urine Nitrite Negative (Negative) Urine Bilirubin Negative (Negative) Urine Urobilinogen <2.0 (<2.0) mg/dL Ur Leukocyte Esterase Large H (Negative) Urine RBC 10 H (0-5) /hpf Urine WBC 1 (0-5) /hpf Urine Mucus Few H (None) /hpf Salicylates <1.0 mg/dL Urine Opiates Screen Not Detected (NotDetected) Ur Oxycodone Screen Not Detected (NotDetected) Urine Methadone Screen Not Detected (NotDetected) Ur Propoxyphene Screen Detected H (NotDetected) Acetaminophen <10.0 ug/mL Ur Barbiturates Screen Detected H (NotDetected) U Tricyclic Antidepress Detected H (NotDetected) Ur Phencyclidine Scrn Detected H (NotDetected) Ur Amphetamines Screen Not Detected (NotDetected) U Methamphetamines Scrn Not Detected (NotDetected) U Benzodiazepines Scrn Detected H (NotDetected) Urine Cocaine Screen Detected H (NotDetected) U Marijuana (THC) Screen Not Detected (NotDetected) - EKG Data -: EKG Interpreted by Me (EKG shows normal sinus emesis eye, NE 136, QRS 84, QTc 465) - Radiology Data Radiology results: report reviewed (CT brain negative for acute disease), image reviewed Disposition Clinical Impression: Generalized seizure, New onset seizure Disposition: HOME SELF-CARE Condition: Good Instructions (If sedation given, give patient instructions): New-Onset Seizure in Adults (ED) Is patient prescribed a controlled substance at d/c from ED?: No Referrals: Sujit Cartagena MD [Primary Care Provider] - 1-2 days
[2018-09-18 19:25] LABS: ALT 26 U/L (21-72); AST 19 U/L (17-59); Acetaminophen <10.0 ug/mL; Albumin 3.2 g/dL (3.5-5.0); Alkaline Phosphatase 235 U/L (38-126); Anion Gap 9 mmol/L; Blood Urea Nitrogen 24 mg/dL (9-20); Calcium 8.9 mg/dL (8.4-10.2); Carbon Dioxide 13 mmol/L (22-30); Chloride 109 mmol/L (98-107); Glucose 111 mg/dL (74-99); Magnesium 1.7 mg/dL (1.6-2.3); Phosphorus 4.3 mg/dL (2.5-4.5); Potassium 5.6 mmol/L (3.5-5.1); Salicylate <1.0 mg/dL; Sodium 131 mmol/L (137-145); Total Bilirubin 0.7 mg/dL (0.2-1.3); Total Protein 6.2 g/dL (6.3-8.2)
[2018-09-18 19:45] LABS: Appearance,Urine Clear (Clear); Bilirubin,Urine Negative (Negative); Blood,Urine Trace (Negative); Color,Urine Yellow; Glucose,Urine (UA) Negative (Negative); Ketones,Urine Negative (Negative); Leukocyte Esterase,Urine Large (Negative); Mucus,Urine Few /hpf; Nitrite,Urine Negative (Negative); Protein,Urine 1+ (Negative); RBC,Urine 10 /hpf (0-5); Specific Gravity,Urine 1.009 (1.001-1.035); Urobilinogen,Urine <2.0 mg/dL (<2.0); WBC,Urine 1 /hpf (0-5)
--- NOTE | 2018-09-18 19:50 | CT ---
EXAMINATION: CT brain wo con DATE AND TIME: 09/18/2018 7:28 PM CLINICAL INDICATION: PHH; seizure activity TECHNIQUE: Department protocol. COMPARISON: None. FINDINGS: The calvarium is intact. There is no intracranial hemorrhage. There is no intracranial mass or mass e ffect. No definite new intra-axial or extra-axial attenuation defect. Atherosclerotic intimal calcifi cations are noted within the bilateral distal vertebral arteries and bilateral distal ICA. The orbits are unremarkable. The paranasal sinuses show scattered mild coastal thickening, a nonspecific finding which can correla te with a clinical diagnosis of sinusitis. The right mastoid sinus air cells and right middle ear cavity are clear. However, the left middle ear cavity is opacified as are the mastoid sinus air cells on the left. These findings can correlate wit h a clinical diagnosis of left otitis media. The fossa of Rosenmuller is negative bilaterally. IMPRESSION: 1. NO ACUTE INTRACRANIAL PROCESS. 2. Atherosclerotic intimal calcifications involving the bilateral anterior and posterior intracrania l circulation. 3. Left middle ear and mastoid sinus air cell opacification pattern. 4. Mild paranasal sinus findings
[2018-09-18 19:53] LABS: Cocaine Screen,Urine Detected (NotDetected); Opiate Screen,Urine Not Detected (NotDetected); Phencyclidine Screen,Urine Detected (NotDetected); Urn Cannabinoid Scrn Not Detected (NotDetected)
[2018-09-18 19:54] LABS: Amphetamine Screen,Urine Not Detected (NotDetected); Barbiturate Screen,Urine Detected (NotDetected); Benzodiazepines Screen,Urine Detected (NotDetected); Methadone Screen, Urine Not Detected (NotDetected); Oxycodone Screen, Urine Not Detected (NotDetected); Tricyclic Antidepressant,Urine Detected (NotDetected)
[2018-09-18 20:34] VITALS: BP 120/88; PULSE 78; RESP 16
== END 2018-09-18 21:08 | disposition home or self-care (01) ==
LOC: EC 18:54
DX: G40.409 Other generalized epilepsy and epileptic syndromes, not intractable, without status epilepticus (principal); Z53.29 Procedure and treatment not carried out because of patient's decision for other reasons; I11.0 Hypertensive heart disease with heart failure; I50.9 Heart failure, unspecified; E78.5 Hyperlipidemia, unspecified; M19.90 Unspecified osteoarthritis, unspecified site; G47.30 Sleep apnea, unspecified; Z99.89 Dependence on other enabling machines and devices; Z85.828 Personal history of other malignant neoplasm of skin; Z79.01 Long term (current) use of anticoagulants; Z79.52 Long term (current) use of systemic steroids; Z79.899 Other long term (current) drug therapy; Z94.0 Kidney transplant status; Z94.83 Pancreas transplant status; Z96.652 Presence of left artificial knee joint
CPT/HCPCS: 36415; 70450; 80053; 80306; 81001; 83520; 83735; 84100; 85025; 93005; 99285

== ENCOUNTER 2018-09-30 14:30 | Emergency (ER) | payer BC ==
[2018-09-30 14:51] VITALS: RESP 16
[2018-09-30] MEDS ORDERED: SODIUM CHLORIDE 0.9% 1,000 ML IV STA (14:54)
[2018-09-30] MEDS ORDERED: ONDANSETRON 4 MG/2 ML VIAL IVP STA (14:54)
[2018-09-30] MEDS ORDERED: HYDROmorphone 1 MG/ML 1 ML SYRINGE IVP STA (15:04)
[2018-09-30 15:30] LABS: Anisocytosis Slight; Basophils % (A) 0 %; Eosinophils % (A) 0 %; HGB 10.4 gm/dL (13.0-17.5); Hypochromasia Moderate; Lymphocytes # (A) 0.6 k/uL (1.0-4.8); Lymphocytes % (A) 6 %; MCH 26.7 pg (25.0-35.0); MCHC 31.6 g/dL (31.0-37.0); MCV 84.4 fL (80.0-100.0); Mean Platelet Volume 7.3; Monocytes # (A) 0.6 k/uL (0-1.0); Monocytes % (A) 6 %; Neutrophils # (A) 8.5 k/uL (1.3-7.7); Neutrophils % (A) 87 %; Platelet Count 318 k/uL (150-450); Poikilocytosis Slight; RBC 3.91 m/uL (4.30-5.90); RDW 16.8 % (11.5-15.5); WBC 9.8 k/uL (3.8-10.6)
[2018-09-30 15:42] LABS: Appearance,Urine Clear (Clear); Bilirubin,Urine Negative (Negative); Blood,Urine Trace (Negative); Color,Urine Yellow; Glucose,Urine (UA) Negative (Negative); Ketones,Urine Negative (Negative); Leukocyte Esterase,Urine Large (Negative); Mucus,Urine Rare /hpf; Nitrite,Urine Negative (Negative); PH, Urine 7.5 (5.0-8.0); Protein,Urine 1+ (Negative); RBC,Urine 3 /hpf (0-5); Specific Gravity,Urine 1.009 (1.001-1.035); Urobilinogen,Urine <2.0 mg/dL (<2.0); WBC,Urine 3 /hpf (0-5)
[2018-09-30 15:45] LABS: Albumin 3.4 g/dL (3.5-5.0); Calcium 9.3 mg/dL (8.4-10.2); Potassium 5.9 mmol/L (3.5-5.1); Total Bilirubin 0.8 mg/dL (0.2-1.3)
[2018-09-30] MEDS ORDERED: INSULIN REGULAR 100 UNIT/ML VIAL IV ONE (16:01)
[2018-09-30] MEDS ORDERED: DEXTROSE 50%-WATER 50 ML SYRINGE IVP STA (16:01)
--- NOTE | 2018-09-30 16:01 | ED ---
Abdominal Pain HPI - General Source: patient, family, RN notes reviewed Mode of arrival: wheelchair Limitations: no limitations <Jack Frances - Last Filed: 09/30/18 15:59> <Sunny Rodriguez - Last Filed: 09/30/18 19:04> - General Chief Complaint: Abdominal Pain Stated Complaint: Abd pain, nausea, vomiting Time Seen by Provider: 09/30/18 14:54 - History of Present Illness Initial Comments: 53-year-old male presents emergency Department with chief complaint of nausea vomiting abdominal discomfort. Patient states started last 24 hours. Patient complains of mild abdominal discomfort in her periumbilical region. Patient has no dysuria no hematuria no diarrhea no constipation. Patient does have a simple past medical history including pancreatic and kidney transplant. Patient denies any fevers or chills And no shortness of breath. Patient states he just does not feel well. Patient denies any contacts with some her symptoms. (Jack Frances) - Related Data Home Medications Medication Instructions Recorded Confirmed Labetalol HCl [Trandate] 400 mg PO QAM 11/23/13 09/30/18 Pravastatin Sodium [Pravachol] 20 mg PO Q48H 11/23/13 09/30/18 Sodium Bicarbonate Tab 1,300 mg PO BID 11/23/13 09/30/18 Tacrolimus [Prograf] 0.5 mg PO HS 11/23/13 09/30/18 Lansoprazole 30 mg PO Q48H 07/14/18 09/30/18 Tacrolimus [Prograf] 1 mg PO DAILY 07/14/18 09/30/18 Apixaban [Eliquis] 5 mg PO BID 09/18/18 09/30/18 Azelastine HCl [Astepro] 1 spray EA NOSTRIL DAILY PRN 09/18/18 09/30/18 Ipratropium-Albuterol Nebulize 3 ml INHALATION RT-QID PRN 09/18/18 09/30/18 [Duoneb 0.5 mg-3 mg/3 ml Soln] Tamsulosin [Flomax] 0.4 mg PO HS 09/18/18 09/30/18 predniSONE 5 mg PO DAILY 09/18/18 09/30/18 Labetalol [Trandate] 600 mg PO HS 09/30/18 09/30/18 Previous Rx's Medication Instructions Recorded Mycophenolate Mofetil [Cellcept] 500 mg PO BID #0 07/18/18 Allergies Allergy/AdvReac Type Severity Reaction Status Date / Time No Known Allergies Allergy Verified 09/30/18 16:18 Review of Systems ROS Other: All systems not noted in ROS Statement are negative. <Jack Frances - Last Filed: 09/30/18 15:59> ROS Other: All systems not noted in ROS Statement are negative. <Sunny Rodriguez - Last Filed: 09/30/18 19:04> ROS Statement: Those systems with pertinent positive or pertinent negative responses have been documented in the HPI. Past Medical History Past Medical History: Cancer, Heart Failure, Hyperlipidemia, Hypertension, Osteoarthritis (OA), Renal Disease, Sleep Apnea/CPAP/BIPAP Additional Past Medical History / Comment(s): ARDS, hx of DM was tx for dm from age 9 to age 35(had pancareas transplant), uses cpap machine, basal and squamous cell skin cancer, hx rt elbow broken-(sx), charcots foot History of Any Multi-Drug Resistant Organisms: None Reported Past Surgical History: Hernia Repair, Joint Replacement Additional Past Surgical History / Comment(s): kidney and pancreas transplant , L knee replacment, rt elbow sx has 7 screws,cataracts removed-lens implants, laser eye sx for retinopathy, fernando foot sx(rt foot bone gravt and lt foot bone shaved) Past Anesthesia/Blood Transfusion Reactions: No Reported Reaction Past Psychological History: No Psychological Hx Reported Smoking Status: Never smoker Past Alcohol Use History: Occasional Past Drug Use History: None Reported - Past Family History Mother Family Medical History: Cancer, Diabetes Mellitus Additional Family Medical History / Comment(s): liver cancer Father Family Medical History: CVA/TIA Additional Family Medical History / Comment(s): was smoker had ctroke in his 30's <Jack Frances - Last Filed: 09/30/18 15:59> General Exam Limitations: no limitations General appearance: alert, in no apparent distress Head exam: Present: atraumatic, normocephalic, normal inspection Eye exam: Present: normal appearance, PERRL, EOMI. Absent: scleral icterus, conjunctival injection, periorbital swelling ENT exam: Present: normal exam, normal oropharynx, mucous membranes moist Neck exam: Present: normal inspection, full ROM. Absent: tenderness, meningismus, lymphadenopathy Respiratory exam: Present: normal lung sounds bilaterally. Absent: respiratory distress, wheezes, rales, rhonchi, stridor Cardiovascular Exam: Present: regular rate, normal rhythm, normal heart sounds. Absent: systolic murmur, diastolic murmur, rubs, gallop, clicks GI/Abdominal exam: Present: soft, tenderness (Moderate periumbilical), normal bowel sounds. Absent: distended, guarding, rebound, rigid Back exam: Absent: CVA tenderness (R), CVA tenderness (L) Skin exam: Present: warm, dry, intact, normal color. Absent: rash <Jack Frances - Last Filed: 09/30/18 15:59> General appearance: alert, in no apparent distress Head exam: Present: atraumatic, normocephalic, normal inspection Eye exam: Present: normal appearance, PERRL, EOMI. Absent: scleral icterus, conjunctival injection, periorbital swelling ENT exam: Present: normal exam, mucous membranes moist Neck exam: Present: normal inspection. Absent: tenderness, meningismus, lymphadenopathy Respiratory exam: Present: normal lung sounds bilaterally. Absent: respiratory distress, wheezes, rales, rhonchi, stridor Cardiovascular Exam: Present: regular rate, normal rhythm, normal heart sounds. Absent: systolic murmur, diastolic murmur, rubs, gallop, clicks GI/Abdominal exam: Present: soft, normal bowel sounds. Absent: distended, tenderness, guarding, rebound, rigid Extremities exam: Present: normal inspection, full ROM, normal capillary refill. Absent: tenderness, pedal edema, joint swelling, calf tenderness Back exam: Present: normal inspection Neurological exam: Present: alert, oriented X3, CN II-XII intact Psychiatric exam: Present: normal affect, normal mood Skin exam: Present: warm, dry, intact, normal color. Absent: rash <Sunny Rodriguez - Last Filed: 09/30/18 19:04> Course <Sunny Rodriguez - Last Filed: 09/30/18 19:04> Vital Signs 09/30/18 09/30/18 14:45 16:21 Temperature 98.2 F Pulse Rate 79 78 Respiratory 16 16 Rate Blood Pressure 135/82 133/66 O2 Sat by Pulse 100 97 Oximetry - Reevaluation(s) Reevaluation #1: 09/30/18 19:04 Speaking with patient, patient would refer discharged home and will continue follow-up with primary (Sunny Rodriguez) Medical Decision Making - Lab Data Result diagrams: 09/30/18 15:14 09/30/18 15:14 <Jack Frances - Last Filed: 09/30/18 15:59> - Lab Data Result diagrams: 09/30/18 15:14 09/30/18 16:56 - Radiology Data Radiology results: report reviewed (CT head and pelvis negative for acute disease), image reviewed <Sunny Rodriguez - Last Filed: 09/30/18 19:04> - Medical Decision Making 53 male with pain and nausea currently improved. Patient would like discharge home. Patient is CT which is negative. Labwork which is improved, potassium is decreasing. Patient encouraged increased fluid intake and can be discharged home (Sunny Rodriguez) - Lab Data Lab Results 09/30/18 09/30/18 09/30/18 Range/Units 15:14 15:14 15:14 WBC 9.8 (3.8-10.6) k/uL RBC 3.91 L (4.30-5.90) m/uL Hgb 10.4 L (13.0-17.5) gm/dL Hct 33.0 L (39.0-53.0) % MCV 84.4 (80.0-100.0) fL MCH 26.7 (25.0-35.0) pg MCHC 31.6 (31.0-37.0) g/dL RDW 16.8 H (11.5-15.5) % Plt Count 318 (150-450) k/uL Neutrophils % 87 % Lymphocytes % 6 % Monocytes % 6 % Eosinophils % 0 % Basophils % 0 % Neutrophils # 8.5 H (1.3-7.7) k/uL Lymphocytes # 0.6 L (1.0-4.8) k/uL Monocytes # 0.6 (0-1.0) k/uL Eosinophils # 0.0 (0-0.7) k/uL Basophils # 0.0 (0-0.2) k/uL Hypochromasia Moderate Poikilocytosis Slight Anisocytosis Slight Sodium 134 L (137-145) mmol/L Potassium 5.9 H (3.5-5.1) mmol/L Chloride 107 (98-107) mmol/L Carbon Dioxide 17 L (22-30) mmol/L Anion Gap 10 mmol/L BUN 31 H (9-20) mg/dL Creatinine 1.95 H (0.66-1.25) mg/dL Est GFR (CKD-EPI)AfAm 44 (>60 ml/min/1.73 sqM) Est GFR (CKD-EPI)NonAf 38 (>60 ml/min/1.73 sqM) Glucose 107 H (74-99) mg/dL Calcium 9.3 (8.4-10.2) mg/dL Total Bilirubin 0.8 (0.2-1.3) mg/dL AST 10 L (17-59) U/L ALT 16 L (21-72) U/L Alkaline Phosphatase 151 H (38-126) U/L Total Protein 6.0 L (6.3-8.2) g/dL Albumin 3.4 L (3.5-5.0) g/dL Lipase 146 (23-300) U/L Urine Color Yellow Urine Appearance Clear (Clear) Urine pH 7.5 (5.0-8.0) Ur Specific [place] 1.009 (1.001-1.035) Urine Protein 1+ H (Negative) Urine Glucose (UA) Negative (Negative) Urine Ketones Negative (Negative) Urine Blood Trace H (Negative) Urine Nitrite Negative (Negative) Urine Bilirubin Negative (Negative) Urine Urobilinogen <2.0 (<2.0) mg/dL Ur Leukocyte Esterase Large H (Negative) Urine RBC 3 (0-5) /hpf Urine WBC 3 (0-5) /hpf Urine Mucus Rare H (None) /hpf 09/30/18 Range/Units 16:56 WBC (3.8-10.6) k/uL RBC (4.30-5.90) m/uL Hgb (13.0-17.5) gm/dL Hct (39.0-53.0) % MCV (80.0-100.0) fL MCH (25.0-35.0) pg MCHC (31.0-37.0) g/dL RDW (11.5-15.5) % Plt Count (150-450) k/uL Neutrophils % % Lymphocytes % % Monocytes % % Eosinophils % % Basophils % % Neutrophils # (1.3-7.7) k/uL Lymphocytes # (1.0-4.8) k/uL Monocytes # (0-1.0) k/uL Eosinophils # (0-0.7) k/uL Basophils # (0-0.2) k/uL Hypochromasia Poikilocytosis Anisocytosis Sodium (137-145) mmol/L Potassium 5.4 H (3.5-5.1) mmol/L Chloride (98-107) mmol/L Carbon Dioxide (22-30) mmol/L Anion Gap mmol/L BUN (9-20) mg/dL Creatinine (0.66-1.25) mg/dL Est GFR (CKD-EPI)AfAm (>60 ml/min/1.73 sqM) Est GFR (CKD-EPI)NonAf (>60 ml/min/1.73 sqM) Glucose (74-99) mg/dL Calcium (8.4-10.2) mg/dL Total Bilirubin (0.2-1.3) mg/dL AST (17-59) U/L ALT (21-72) U/L Alkaline Phosphatase (38-126) U/L Total Protein (6.3-8.2) g/dL Albumin (3.5-5.0) g/dL Lipase (23-300) U/L Urine Color Urine Appearance (Clear) Urine pH (5.0-8.0) Ur Specific [place] (1.001-1.035) Urine Protein (Negative) Urine Glucose (UA) (Negative) Urine Ketones (Negative) Urine Blood (Negative) Urine Nitrite (Negative) Urine Bilirubin (Negative) Urine Urobilinogen (<2.0) mg/dL Ur Leukocyte Esterase (Negative) Urine RBC (0-5) /hpf Urine WBC (0-5) /hpf Urine Mucus (None) /hpf Disposition <Jack Frances - Last Filed: 09/30/18 15:59> Is patient prescribed a controlled substance at d/c from ED?: No <Sunny Rodriguez - Last Filed: 09/30/18 19:04> Clinical Impression: Abdominal pain, Nausea Disposition: HOME SELF-CARE Instructions (If sedation given, give patient instructions): Abdominal Pain (ED), Acute Nausea and Vomiting (ED) Referrals: Sujit Cartagena MD [Primary Care Provider] - 1-2 days
--- NOTE | 2018-09-30 17:30 | CT ---
EXAMINATION TYPE: CT abdomen pelvis wo con DATE OF EXAM: 09/30/2018 COMPARISON: CT 06/07/2012 HISTORY: Abdominal pain with nausea and vomiting. CT DLP: 373.6 mGycm Automated exposure control for dose reduction was used. TECHNIQUE: Helical acquisition of images was performed from the lung bases through the pelvis. FINDINGS: LUNG BASES: No acute findings. Moderate cardiomegaly with coronary calcifications noted. LIVER/GB: No significant abnormality is appreciated. PANCREAS: No significant abnormality is seen. SPLEEN: No significant abnormality is seen. No splenomegaly. ADRENALS: No significant abnormality is seen. KIDNEYS: The [place] kidneys are severely atrophied. The hypertrophied right transplant kidney is [place] to the prior CT, but with new mild indistinctness of the renal margin circumferentially. There is no hydronephrosis. No focal fluid collection. There is a 2 mm nonobstructing calcification in the po sterior parenchyma of the right lower pole. FREE AIR: No free air is visualized RETROPERITONEAL ADENOPATHY: None visualized REPRODUCTIVE ORGANS: No significant abnormality is seen URINARY BLADDER: No significant abnormality is seen. PELVIC ADENOPATHY: 3 cm lymph node in the retrocaval position just cephalad to the aortic bifurcatio n level. OSSEOUS STRUCTURES: No significant abnormality is seen. BOWEL: No bowel obstruction, but prominent volume of stool is seen throughout the ascending and calvo sverse and descending colon. IMPRESSION: 1. NONSPECIFIC MILD INFLAMMATORY CHANGE RELATED TO THE RIGHT KIDNEY BUT NO OBSTRUCTIVE UROPATHY; URI NALYSIS CORRELATION REQUESTED. 2. 3 CM RETROCAVAL LYMPH NODE JUST CEPHALAD TO THE AORTIC BIFURCATION.
[2018-09-30 19:46] VITALS: BP 128/87; PULSE 73; TEMP 98
== END 2018-09-30 19:45 | disposition home or self-care (01) ==
LOC: EC 14:30
DX: R10.33 Periumbilical pain (principal); R11.2 Nausea with vomiting, unspecified; I11.0 Hypertensive heart disease with heart failure; I50.9 Heart failure, unspecified; E78.5 Hyperlipidemia, unspecified; G47.30 Sleep apnea, unspecified; M19.90 Unspecified osteoarthritis, unspecified site; Z79.01 Long term (current) use of anticoagulants; Z79.52 Long term (current) use of systemic steroids; Z79.899 Other long term (current) drug therapy; Z85.828 Personal history of other malignant neoplasm of skin; Z94.0 Kidney transplant status; Z94.83 Pancreas transplant status; Z96.652 Presence of left artificial knee joint; Z80.0 Family history of malignant neoplasm of digestive organs
CPT/HCPCS: 36415; 80053; 83690; 84132; 85025; 81001; 74176; 99284; 96374; 96375 ×2; 96361; J2405; J1170

== ENCOUNTER 2018-10-01 14:55 | Emergency (ER) | payer BC ==
[2018-10-01 15:00] VITALS: RESP 18
[2018-10-01] MEDS ORDERED: ONDANSETRON 4 MG/2 ML VIAL IVP STA (15:38)
[2018-10-01] MEDS ORDERED: SODIUM CHLORIDE 0.9% 1,000 ML IV STA ×2 (15:38)
[2018-10-01] MEDS ORDERED: HYDROmorphone 1 MG/ML 1 ML SYRINGE IVP STA (15:38)
[2018-10-01 16:34] LABS: Partial Thromboplastin Time 30.9 sec (22.0-30.0); Prothrombin Time 10.9 sec (9.0-12.0)
[2018-10-01 16:36] LABS: Albumin 3.2 g/dL (3.5-5.0); Amorphous Sediment,Urine Rare /hpf; Anisocytosis Slight; Appearance,Urine Clear (Clear); Basophils % (A) 0 %; Bilirubin,Urine Negative (Negative); Blood,Urine Negative (Negative); Calcium 9.1 mg/dL (8.4-10.2); Color,Urine Light Yellow; Eosinophils % (A) 0 %; Glucose,Urine (UA) Negative (Negative); HCT 29.9 % (39.0-53.0); HGB 9.5 gm/dL (13.0-17.5); Hypochromasia Moderate; Ketones,Urine Negative (Negative); Leukocyte Esterase,Urine Large (Negative); Lymphocytes # (A) 0.6 k/uL (1.0-4.8); Lymphocytes % (A) 8 %; MCH 27.1 pg (25.0-35.0); MCHC 31.8 g/dL (31.0-37.0); MCV 85.3 fL (80.0-100.0); Mean Platelet Volume 7.1; Monocytes # (A) 0.5 k/uL (0-1.0); Monocytes % (A) 6 %; Mucus,Urine Rare /hpf; Neutrophils # (A) 6.6 k/uL (1.3-7.7); Neutrophils % (A) 85 %; Nitrite,Urine Negative (Negative); Platelet Count 289 k/uL (150-450); Poikilocytosis Slight; Potassium 5.7 mmol/L (3.5-5.1); Protein,Urine 1+ (Negative); RBC 3.51 m/uL (4.30-5.90); RBC,Urine 2 /hpf (0-5); RDW 16.8 % (11.5-15.5); Specific Gravity,Urine 1.008 (1.001-1.035); Total Bilirubin 0.6 mg/dL (0.2-1.3); Total Protein 5.8 g/dL (6.3-8.2); Urobilinogen,Urine <2.0 mg/dL (<2.0); WBC 7.7 k/uL (3.8-10.6); WBC,Urine 3 /hpf (0-5)
--- NOTE | 2018-10-01 16:47 | ED ---
Abdominal Pain HPI - General Chief Complaint: Abdominal Pain Stated Complaint: abdominal pain-revisit Time Seen by Provider: 10/01/18 15:18 Source: patient, RN notes reviewed, old records reviewed Mode of arrival: ambulatory Limitations: no limitations - History of Present Illness Initial Comments: Patient is a 53-year-old male who presents weren't to department today with complaints of epigastric abdominal pain.eating. He came in emergency room for similar complaints yesterday. Please is related to her hernia. He has a past medical history of pancreas and liver transplant. He reports normal stools today normal urination. Patient written a history of gastroparesis. Patient reports he is in the emergency department yesterday for similar complaints. He had a computed tomography scan which was read to be unremarkable. - Related Data Home Medications Medication Instructions Recorded Confirmed Labetalol HCl [Trandate] 400 mg PO QAM 11/23/13 09/30/18 Pravastatin Sodium [Pravachol] 20 mg PO Q48H 11/23/13 09/30/18 Sodium Bicarbonate Tab 1,300 mg PO BID 11/23/13 09/30/18 Tacrolimus [Prograf] 0.5 mg PO HS 11/23/13 09/30/18 Lansoprazole 30 mg PO Q48H 07/14/18 09/30/18 Tacrolimus [Prograf] 1 mg PO DAILY 07/14/18 09/30/18 Apixaban [Eliquis] 5 mg PO BID 09/18/18 09/30/18 Azelastine HCl [Astepro] 1 spray EA NOSTRIL DAILY PRN 09/18/18 09/30/18 Ipratropium-Albuterol Nebulize 3 ml INHALATION RT-QID PRN 09/18/18 09/30/18 [Duoneb 0.5 mg-3 mg/3 ml Soln] Tamsulosin [Flomax] 0.4 mg PO HS 09/18/18 09/30/18 predniSONE 5 mg PO DAILY 09/18/18 09/30/18 Labetalol [Trandate] 600 mg PO HS 09/30/18 09/30/18 Previous Rx's Medication Instructions Recorded Mycophenolate Mofetil [Cellcept] 500 mg PO BID #0 07/18/18 Metoclopramide [Reglan] 10 mg PO ACHS #15 tab 10/01/18 Allergies Allergy/AdvReac Type Severity Reaction Status Date / Time No Known Allergies Allergy Verified 10/01/18 14:59 Review of Systems ROS Statement: Those systems with pertinent positive or pertinent negative responses have been documented in the HPI. ROS Other: All systems not noted in ROS Statement are negative. Past Medical History Past Medical History: Cancer, Heart Failure, Hyperlipidemia, Hypertension, Osteoarthritis (OA), Renal Disease, Sleep Apnea/CPAP/BIPAP Additional Past Medical History / Comment(s): ARDS, hx of DM was tx for dm from age 9 to age 35(had pancareas transplant), uses cpap machine, basal and squamous cell skin cancer, hx rt elbow broken-(sx), charcots foot History of Any Multi-Drug Resistant Organisms: None Reported Past Surgical History: Hernia Repair, Joint Replacement Additional Past Surgical History / Comment(s): kidney and pancreas transplant , L knee replacment, rt elbow sx has 7 screws,cataracts removed-lens implants, laser eye sx for retinopathy, fernando foot sx(rt foot bone gravt and lt foot bone shaved) Past Anesthesia/Blood Transfusion Reactions: No Reported Reaction Past Psychological History: No Psychological Hx Reported Smoking Status: Light tobacco smoker Past Alcohol Use History: Occasional Past Drug Use History: None Reported - Past Family History Mother Family Medical History: Cancer, Diabetes Mellitus Additional Family Medical History / Comment(s): liver cancer Father Family Medical History: CVA/TIA Additional Family Medical History / Comment(s): was smoker had ctroke in his 30's General Exam - General Exam Comments Initial Comments: 53-year-old male. Patient does not appear to be in any acute distress. Resting in bed. Limitations: no limitations General appearance: alert, in no apparent distress Head exam: Present: atraumatic, normocephalic, normal inspection Eye exam: Present: normal appearance, PERRL, EOMI. Absent: scleral icterus, conjunctival injection, periorbital swelling ENT exam: Present: normal exam, mucous membranes moist Neck exam: Present: normal inspection. Absent: tenderness, meningismus, lymphadenopathy Respiratory exam: Present: normal lung sounds bilaterally. Absent: respiratory distress, wheezes, rales, rhonchi, stridor Cardiovascular Exam: Present: regular rate, normal rhythm, normal heart sounds. Absent: systolic murmur, diastolic murmur, rubs, gallop, clicks GI/Abdominal exam: Present: soft, normal bowel sounds. Absent: distended, tenderness, guarding, rebound, rigid Extremities exam: Present: normal inspection, full ROM, normal capillary refill. Absent: tenderness, pedal edema, joint swelling, calf tenderness Back exam: Present: normal inspection Neurological exam: Present: alert, oriented X3, CN II-XII intact Psychiatric exam: Present: normal affect, normal mood Skin exam: Present: warm, dry, intact, normal color. Absent: rash Course Vital Signs 10/01/18 10/01/18 10/01/18 14:57 16:29 18:06 Temperature 98.4 F 98.4 F Pulse Rate 78 78 88 Respiratory 18 18 18 Rate Blood Pressure 131/81 162/91 144/90 O2 Sat by Pulse 100 99 98 Oximetry 10/01/18 18:38 Temperature 98.1 F Pulse Rate 85 Respiratory 18 Rate Blood Pressure 147/88 O2 Sat by Pulse 100 Oximetry Medical Decision Making - Medical Decision Making Patient's a 53-year-old male presents emergency department today with epigastric abdominal pain, nausea vomiting. Patient is a symptoms are related to gastroparesis or possible hernia. He has appointments coming up with Dr. Polanco and Dr. campbell for evaluation for the symptoms. Patient has history of kidney and pancreas transplant. Patient at this time was given IV fluids and laboratory obtained. Patient's labwork was reviewed. No significant changes. Potassium is mildly 5.7. Patient was able to count is normal. I discussed avoiding another computed tomography scan at this time she had a normal CT yesterday. After evaluation and dose of pain medication he states he is feeling well and discharged home. I discussed case with Dr. Hampton will also examine the Patient and agrees the Patient be discharged in stable condition with follow-up with Dr. Polanco and Dr. campbell. - Lab Data Result diagrams: 10/01/18 16:10 10/01/18 16:10 Lab Results 10/01/18 10/01/18 10/01/18 Range/Units 16:10 16:10 16:10 WBC 7.7 (3.8-10.6) k/uL RBC 3.51 L (4.30-5.90) m/uL Hgb 9.5 L (13.0-17.5) gm/dL Hct 29.9 L (39.0-53.0) % MCV 85.3 (80.0-100.0) fL MCH 27.1 (25.0-35.0) pg MCHC 31.8 (31.0-37.0) g/dL RDW 16.8 H (11.5-15.5) % Plt Count 289 (150-450) k/uL Neutrophils % 85 % Lymphocytes % 8 % Monocytes % 6 % Eosinophils % 0 % Basophils % 0 % Neutrophils # 6.6 (1.3-7.7) k/uL Lymphocytes # 0.6 L (1.0-4.8) k/uL Monocytes # 0.5 (0-1.0) k/uL Eosinophils # 0.0 (0-0.7) k/uL Basophils # 0.0 (0-0.2) k/uL Hypochromasia Moderate Poikilocytosis Slight Anisocytosis Slight PT (9.0-12.0) sec INR (<1.2) APTT (22.0-30.0) sec Sodium 134 L (137-145) mmol/L Potassium 5.7 H (3.5-5.1) mmol/L Chloride 109 H (98-107) mmol/L Carbon Dioxide 16 L (22-30) mmol/L Anion Gap 9 mmol/L BUN 28 H (9-20) mg/dL Creatinine 1.80 H (0.66-1.25) mg/dL Est GFR (CKD-EPI)AfAm 48 (>60 ml/min/1.73 sqM) Est GFR (CKD-EPI)NonAf 41 (>60 ml/min/1.73 sqM) Glucose 130 H (74-99) mg/dL Plasma Lactic Acid Jose 1.4 (0.7-2.0) mmol/L Calcium 9.1 (8.4-10.2) mg/dL Total Bilirubin 0.6 (0.2-1.3) mg/dL AST 13 L (17-59) U/L ALT 20 L (21-72) U/L Alkaline Phosphatase 140 H (38-126) U/L Total Protein 5.8 L (6.3-8.2) g/dL Albumin 3.2 L (3.5-5.0) g/dL Amylase 57 (30-110) U/L Lipase 105 (23-300) U/L Urine Color Urine Appearance (Clear) Urine pH (5.0-8.0) Ur Specific [place] (1.001-1.035) Urine Protein (Negative) Urine Glucose (UA) (Negative) Urine Ketones (Negative) Urine Blood (Negative) Urine Nitrite (Negative) Urine Bilirubin (Negative) Urine Urobilinogen (<2.0) mg/dL Ur Leukocyte Esterase (Negative) Urine RBC (0-5) /hpf Urine WBC (0-5) /hpf Amorphous Sediment (None) /hpf Urine Mucus (None) /hpf 10/01/18 10/01/18 Range/Units 16:10 16:10 WBC (3.8-10.6) k/uL RBC (4.30-5.90) m/uL Hgb (13.0-17.5) gm/dL Hct (39.0-53.0) % MCV (80.0-100.0) fL MCH (25.0-35.0) pg MCHC (31.0-37.0) g/dL RDW (11.5-15.5) % Plt Count (150-450) k/uL Neutrophils % % Lymphocytes % % Monocytes % % Eosinophils % % Basophils % % Neutrophils # (1.3-7.7) k/uL Lymphocytes # (1.0-4.8) k/uL Monocytes # (0-1.0) k/uL Eosinophils # (0-0.7) k/uL Basophils # (0-0.2) k/uL Hypochromasia Poikilocytosis Anisocytosis PT 10.9 (9.0-12.0) sec INR 1.0 (<1.2) APTT 30.9 H (22.0-30.0) sec Sodium (137-145) mmol/L Potassium (3.5-5.1) mmol/L Chloride (98-107) mmol/L Carbon Dioxide (22-30) mmol/L Anion Gap mmol/L BUN (9-20) mg/dL Creatinine (0.66-1.25) mg/dL Est GFR (CKD-EPI)AfAm (>60 ml/min/1.73 sqM) Est GFR (CKD-EPI)NonAf (>60 ml/min/1.73 sqM) Glucose (74-99) mg/dL Plasma Lactic Acid Jose (0.7-2.0) mmol/L Calcium (8.4-10.2) mg/dL Total Bilirubin (0.2-1.3) mg/dL AST (17-59) U/L ALT (21-72) U/L Alkaline Phosphatase (38-126) U/L Total Protein (6.3-8.2) g/dL Albumin (3.5-5.0) g/dL Amylase (30-110) U/L Lipase (23-300) U/L Urine Color Light Yellow Urine Appearance Clear (Clear) Urine pH 8.0 (5.0-8.0) Ur Specific [place] 1.008 (1.001-1.035) Urine Protein 1+ H (Negative) Urine Glucose (UA) Negative (Negative) Urine Ketones Negative (Negative) Urine Blood Negative (Negative) Urine Nitrite Negative (Negative) Urine Bilirubin Negative (Negative) Urine Urobilinogen <2.0 (<2.0) mg/dL Ur Leukocyte Esterase Large H (Negative) Urine RBC 2 (0-5) /hpf Urine WBC 3 (0-5) /hpf Amorphous Sediment Rare H (None) /hpf Urine Mucus Rare H (None) /hpf - Radiology Data Radiology results: report reviewed normal bowel gas patern on KUB. Disposition Clinical Impression: Abdominal pain, Nausea Disposition: HOME SELF-CARE Condition: Good Instructions (If sedation given, give patient instructions): Abdominal Pain (ED) Additional Instructions: Follow-up with primary care doctor and schedule appointment for specialist. Use the Reglan as needed for nausea. Return to the emergency department if any alarming signs or symptoms occur. Prescriptions: Metoclopramide [Reglan] 10 mg PO ACHS #15 tab Is patient prescribed a controlled substance at d/c from ED?: No Referrals: Sujit Cartagena MD [Primary Care Provider] - 1-2 days Time of Disposition: 18:25
--- NOTE | 2018-10-01 17:16 | XR ---
EXAMINATION TYPE: XR KUB, 2 views DATE OF EXAM: 10/01/2018 COMPARISON: 06/07/2012 HISTORY: Midabdominal pain TECHNIQUE: Upright and supine FINDINGS: There is moderate enlargement of the cardiac silhouette. There is no pneumoperitoneum or evidence of minimal pneumatosis. There is no bowel obstruction. Howev er, there is excessive colonic stool throughout the ascending, transverse, and descending colon. The bowel gas pattern is otherwise unremarkable. No acute skeletal or soft tissue findings. Surgical clips are noted over the pelvis. IMPRESSION: No acute radiographic process.
[2018-10-01 18:40] VITALS: BP 147/88; PULSE 85; TEMP 98.1
== END 2018-10-01 18:41 | disposition home or self-care (01) ==
LOC: EC 14:55
DX: R10.13 Epigastric pain (principal); R11.2 Nausea with vomiting, unspecified; E78.5 Hyperlipidemia, unspecified; I11.0 Hypertensive heart disease with heart failure; I50.9 Heart failure, unspecified; M19.90 Unspecified osteoarthritis, unspecified site; G47.30 Sleep apnea, unspecified; F17.200 Nicotine dependence, unspecified, uncomplicated; Z79.01 Long term (current) use of anticoagulants; Z79.52 Long term (current) use of systemic steroids; Z79.899 Other long term (current) drug therapy; Z87.09 Personal history of other diseases of the respiratory system; Z87.19 Personal history of other diseases of the digestive system; Z85.828 Personal history of other malignant neoplasm of skin; Z94.0 Kidney transplant status; Z94.83 Pancreas transplant status; Z96.652 Presence of left artificial knee joint; Z99.89 Dependence on other enabling machines and devices; Z80.0 Family history of malignant neoplasm of digestive organs
CPT/HCPCS: 99284; 96374; 96375; 96361 ×2; 36415; 80053; 82150; 83605; 83690; 85025; 85610; 85730; 81001; 74018; J2405; J1170

== ENCOUNTER 2018-12-17 10:41 | Inpatient (IN) | payer BC, OTHER ==
[2018-12-17] MEDS ORDERED: SODIUM CHLORIDE 0.9% 500 ML 500 ML IV STA (11:03)
[2018-12-17] MEDS ORDERED: IPRATROPIUM-ALBUTEROL 3 ML NEB INHALATION STA (11:09)
--- NOTE | 2018-12-17 11:29 | ED ---
General Adult HPI - General Source: patient, RN notes reviewed, old records reviewed Mode of arrival: wheelchair Limitations: no limitations <Tremayne Bates - Last Filed: 12/17/18 13:08> <Nikhil Hampton - Last Filed: 12/17/18 13:22> - General Chief complaint: Shortness of Breath Stated complaint: SOB Time Seen by Provider: 12/17/18 10:48 - History of Present Illness Initial comments: 53-year-old male patient with past medical history of kidney transplant 2, pancreas transplant presents to the 3 days of shortness of breath, cough. Patient denies any chest pain. Patient denies any other complaints at this ti ne. Systemic: Pt denies fatigue, fever/chills, rash. Pt denies weakness, night sweats, weight loss. Neuro: Pt denies headache, visual disturbances, syncope or pre-syncope. HEENT: Pt denies ocular discharge or irritation, otalgia, rhinorrhea, pharyngitis or notable lymphadenopathy. Cardiopulmonary: Pt denies chest pain, heart palpitations, dyspnea on exertion. Abdominal/GI: Pt denies abdominal pain, n/v/d. : Pt denies dysuria, burning w/ urination, frequency/urgency. Denies new onset urinary or bowel incontinence. MSK: Pt denies myalgia, loss of strength or function in extremities. Neuro: Pt denies new onset weakness, paresthesias. (Tremayne Bates) - Related Data Home Medications Medication Instructions Recorded Confirmed Labetalol HCl [Trandate] 400 mg PO BID 11/23/13 12/17/18 Pravastatin Sodium [Pravachol] 20 mg PO MOTUTHSA 11/23/13 12/17/18 Sodium Bicarbonate Tab 1,300 mg PO BID 11/23/13 12/17/18 Tacrolimus [Prograf] 0.5 mg PO HS 11/23/13 12/17/18 Lansoprazole 30 mg PO DAILY 07/14/18 12/17/18 Tacrolimus [Prograf] 1 mg PO DAILY 07/14/18 12/17/18 Apixaban [Eliquis] 5 mg PO BID 09/18/18 12/17/18 Tamsulosin [Flomax] 0.4 mg PO HS 09/18/18 12/17/18 predniSONE 5 mg PO DAILY 09/18/18 12/17/18 Acitretin 25 mg PO DAILY 12/17/18 12/17/18 Allopurinol [Zyloprim] 100 mg PO DAILY 12/17/18 12/17/18 Amoxic-Pot Clav 875-125Mg 1 tab PO Q12HR 12/17/18 12/17/18 [Augmentin 875-125] Calcitriol [Rocaltrol] 0.25 mcg PO MOTUWETHFR 12/17/18 12/17/18 Docusate [Colace] 100 mg PO BID 12/17/18 12/17/18 Ergocalciferol (Vitamin D2) 50,000 unit PO Q14D 12/17/18 12/17/18 [Vitamin D2] Ferrous Sulfate [Feosol] 325 mg PO BID 12/17/18 12/17/18 Montelukast [Singulair] 10 mg PO HS 12/17/18 12/17/18 Mycophenolate Mofetil [Cellcept] 1,000 mg PO BID 12/17/18 12/17/18 Allergies Allergy/AdvReac Type Severity Reaction Status Date / Time No Known Allergies Allergy Verified 12/17/18 10:58 Review of Systems ROS Other: All systems not noted in ROS Statement are negative. <Tremayne Bates - Last Filed: 12/17/18 13:08> ROS Other: All systems not noted in ROS Statement are negative. <Nikhil Hampton - Last Filed: 12/17/18 13:22> ROS Statement: Those systems with pertinent positive or pertinent negative responses have been documented in the HPI. Past Medical History Past Medical History: Cancer, Heart Failure, Hyperlipidemia, Hypertension, Osteoarthritis (OA), Renal Disease, Sleep Apnea/CPAP/BIPAP Additional Past Medical History / Comment(s): ARDS, hx of DM was tx for dm from age 9 to age 35(had pancareas transplant), uses cpap machine, basal and squamous cell skin cancer, hx rt elbow broken-(sx), charcots foot History of Any Multi-Drug Resistant Organisms: None Reported Past Surgical History: Hernia Repair, Joint Replacement Additional Past Surgical History / Comment(s): kidney and pancreas transplant , L knee replacment, rt elbow sx has 7 screws,cataracts removed-lens implants, las er eye sx for retinopathy, fernando foot sx(rt foot bone gravt and lt foot bone shaved) Past Anesthesia/Blood Transfusion Reactions: No Reported Reaction Past Psychological History: No Psychological Hx Reported Smoking Status: Light tobacco smoker Past Alcohol Use History: Occasional Past Drug Use History: None Reported - Past Family History Mother Family Medical History: Cancer, Diabetes Mellitus Additional Family Medical History / Comment(s): liver cancer Father Family Medical History: CVA/TIA Additional Family Medical History / Comment(s): was smoker had ctroke in his 30's <Tremayne Bates - Last Filed: 12/17/18 13:08> General Exam Limitations: no limitations <Tremayne Bates - Last Filed: 12/17/18 13:08> - General Exam Comments Initial Comments: Constitutional: NAD, AOX3, Pt has pleasant affect. HEENT: NC/AT, trachea midline, neck supple, no lymphadenopathy. Posterior pharynx non erythematous, without exudates. External ears appear normal, without discharge. Mucous membranes moist. Eyes PERRLA, EOM intact. There is no scleral icterus. No pallor noted. Cardiopulmonary: RRR, no murmurs, rubs or gallops, no JVD noted. Lungs CTAB in anterior and posterior saxena. No peripheral edema. Abdominal exam: Abdomen soft and non-distended. Abdomen non-tender to palpation in all 4 quadrants. Bowel sounds active in LLQ. No hepatosplenomegaly. No ecchymosis Neuro: CN II-XII grossly intact. No nuchal rigidity. No raccon eyes, no bush sign, no hemotympanum. No cervical spinal tenderness. MSK: No posterior calf tenderness bilaterally, homans sign negative bilaterally. Posterior tibialis and radial pulse +2 bilaterally. Sensation intact in upper and lower extremities. Full active ROM in upper and lower extremities, 5/5 stregnth. (Tremayne Bates) Course <Nikhil Hampton - Last Filed: 12/17/18 13:22> Vital Signs 12/17/18 12/17/18 12/17/18 10:44 11:19 11:28 Temperature 98.6 F Pulse Rate 91 97 90 Respiratory 20 Rate Blood Pressure 112/71 O2 Sat by Pulse 100 Oximetry 12/17/18 12/17/18 12/17/18 11:30 12:00 12:30 Temperature Pulse Rate 94 98 93 Respiratory Rate Blood Pressure 119/85 124/87 155/90 O2 Sat by Pulse 100 100 100 Oximetry - Reevaluation(s) Reevaluation #1: 12/17/18 13:20 PA supervision: I proceeded [id number] evaluation the patient did discuss findings with him and his family. He does demonstrate Ms. breath sounds with exertional dyspnea. He will be admitted I did discuss case with Dr. Sanchez. Dr. Ann who is covering for Dr. Pressley will be consulted in addition to cardiology. (Nikhil Hampton) Medical Decision Making - Lab Data Result diagrams: 12/17/18 11:18 12/17/18 11:18 - EKG Data -: EKG Interpreted by Me (and Dr. Hampton) <Tremayne Bates - Last Filed: 12/17/18 13:08> - Lab Data Result diagrams: 12/17/18 11:18 12/17/18 11:18 <Nikhil Hampton - Last Filed: 12/17/18 13:22> - Medical Decision Making 53-year-old male patient with past medical history of kidney transplant 2, pancreas transplant presents to the 3 days of shortness of breath, cough. Patient is the shortness of breath is worse with exertion, feels similar to his COPD in the past. Patient denies any chest pain. Patient denies any other complaints at this time. Patient vital signs stable, afebrile. Physical exam did not acute pathology. Investigations reveal nonpresent CBC. Correlation studies nonpresent. D-dimer mildly elevated at 0.9. CMP revealed creatinine of 1.28. Mild elevation in liver function tests. Troponin negative. BNP 4430. Chest x-ray revealed mild central interstitial edema. EKG revealed atrial flutter 2. Patient has anticoagulant on L quest. Patient be admitted for mild CHF exacerbation and COPD exacerbation, pending VQ scan. Case discussed and pt seen by Dr. Hampton. (Tremayne Bates) - Lab Data Lab Results 12/17/18 12/17/18 12/17/18 Range/Units 11:18 11:18 11:18 WBC 10.6 (3.8-10.6) k/uL RBC 4.52 (4.30-5.90) m/uL Hgb 11.5 L (13.0-17.5) gm/dL Hct 36.7 L (39.0-53.0) % MCV 81.3 (80.0-100.0) fL MCH 25.5 (25.0-35.0) pg MCHC 31.4 (31.0-37.0) g/dL RDW 16.5 H (11.5-15.5) % Plt Count 276 (150-450) k/uL Neutrophils % 77 % Lymphocytes % 9 % Monocytes % 12 % Eosinophils % 1 % Basophils % 0 % Neutrophils # 8.1 H (1.3-7.7) k/uL Lymphocytes # 1.0 (1.0-4.8) k/uL Monocytes # 1.3 H (0-1.0) k/uL Eosinophils # 0.1 (0-0.7) k/uL Basophils # 0.0 (0-0.2) k/uL Anisocytosis Slight PT 10.4 (9.0-12.0) sec INR 1.0 (<1.2) APTT 34.1 H (22.0-30.0) sec D-Dimer 0.91 H (<0.60) mg/L FEU Sodium 139 (137-145) mmol/L Potassium 4.4 (3.5-5.1) mmol/L Chloride 114 H (98-107) mmol/L Carbon Dioxide 12 L (22-30) mmol/L Anion Gap 13 mmol/L BUN 30 H (9-20) mg/dL Creatinine 1.28 H (0.66-1.25) mg/dL Est GFR (CKD-EPI)AfAm 72 (>60 ml/min/1.73 sqM) Est GFR (CKD-EPI)NonAf 63 (>60 ml/min/1.73 sqM) Glucose 101 H (74-99) mg/dL Calcium 9.0 (8.4-10.2) mg/dL Total Bilirubin 1.0 (0.2-1.3) mg/dL AST 91 H (17-59) U/L ALT 100 H (21-72) U/L Alkaline Phosphatase 532 H (38-126) U/L Troponin I (0.000-0.034) ng/mL NT-Pro-B Natriuret Pep pg/mL Total Protein 6.7 (6.3-8.2) g/dL Albumin 3.5 (3.5-5.0) g/dL 12/17/18 12/17/18 Range/Units 11:18 11:18 WBC (3.8-10.6) k/uL RBC (4.30-5.90) m/uL Hgb (13.0-17.5) gm/dL Hct (39.0-53.0) % MCV (80.0-100.0) fL MCH (25.0-35.0) pg MCHC (31.0-37.0) g/dL RDW (11.5-15.5) % Plt Count (150-450) k/uL Neutrophils % % Lymphocytes % % Monocytes % % Eosinophils % % Basophils % % Neutrophils # (1.3-7.7) k/uL Lymphocytes # (1.0-4.8) k/uL Monocytes # (0-1.0) k/uL Eosinophils # (0-0.7) k/uL Basophils # (0-0.2) k/uL Anisocytosis PT (9.0-12.0) sec INR (<1.2) APTT (22.0-30.0) sec D-Dimer (<0.60) mg/L FEU Sodium (137-145) mmol/L Potassium (3.5-5.1) mmol/L Chloride (98-107) mmol/L Carbon Dioxide (22-30) mmol/L Anion Gap mmol/L BUN (9-20) mg/dL Creatinine (0.66-1.25) mg/dL Est GFR (CKD-EPI)AfAm (>60 ml/min/1.73 sqM) Est GFR (CKD-EPI)NonAf (>60 ml/min/1.73 sqM) Glucose (74-99) mg/dL Calcium (8.4-10.2) mg/dL Total Bilirubin (0.2-1.3) mg/dL AST (17-59) U/L ALT (21-72) U/L Alkaline Phosphatase (38-126) U/L Troponin I <0.012 (0.000-0.034) ng/mL NT-Pro-B Natriuret Pep 4430 pg/mL Total Protein (6.3-8.2) g/dL Albumin (3.5-5.0) g/dL - EKG Data EKG Comments: 1) Ventricular rate 98, QRS 86, QT/QTC 376 S4 80. Atrial flutter with verbal AV block. Nonseptic ST and T-wave abnormality. Prolonged QT, abnormal EKG. 2) ventricular rate 95, QRS 84, QT/QTc the 70s is 475. Atrial flutter with variable AV block. Uncertain ST-T wave mild. Prolonged QT, abnormal ECG. Patient does have history of atrial fibrillation. (Tremayne Bates) Disposition Is patient prescribed a controlled substance at d/c from ED?: No <Tremayne Bates - Last Filed: 12/17/18 13:08> <Nikhil Hampton - Last Filed: 12/17/18 13:22> Clinical Impression: COPD exacerbation, CHF exacerbation Disposition: ADMITTED IP TO THIS HOSP Condition: Serious Referrals: Sujit Cartagena MD [Primary Care Provider] - 1-2 days
[2018-12-17 11:42] LABS: Anisocytosis Slight; Basophils % (A) 0 %; Eosinophils # (A) 0.1 k/uL (0-0.7); Eosinophils % (A) 1 %; HCT 36.7 % (39.0-53.0); HGB 11.5 gm/dL (13.0-17.5); Lymphocytes % (A) 9 %; MCH 25.5 pg (25.0-35.0); MCHC 31.4 g/dL (31.0-37.0); MCV 81.3 fL (80.0-100.0); Mean Platelet Volume 8.3; Monocytes # (A) 1.3 k/uL (0-1.0); Monocytes % (A) 12 %; Neutrophils # (A) 8.1 k/uL (1.3-7.7); Neutrophils % (A) 77 %; Platelet Count 276 k/uL (150-450); RBC 4.52 m/uL (4.30-5.90); RDW 16.5 % (11.5-15.5); WBC 10.6 k/uL (3.8-10.6)
[2018-12-17 11:56] LABS: Albumin 3.5 g/dL (3.5-5.0); Potassium 4.4 mmol/L (3.5-5.1); Total Protein 6.7 g/dL (6.3-8.2)
[2018-12-17 11:59] LABS: Partial Thromboplastin Time 34.1 sec (22.0-30.0); Prothrombin Time 10.4 sec (9.0-12.0)
--- NOTE | 2018-12-17 12:00 | XR ---
EXAMINATION TYPE: XR chest 2V DATE OF EXAM: 12/17/2018 COMPARISON: 08/06/2018 TECHNIQUE: PA and lateral views submitted. HISTORY: Shortness of breath FINDINGS: The heart is enlarged. There are subsegmental changes at the left lung base with small effusion. Hype rtrophic and degenerative change of the spine. Hyperinflation the lungs. There is mild prominence of the central interstitium. No pneumothorax. Biapical pleural thickening. IMPRESSION: 1. Cardiomegaly with left basilar atelectasis or infiltrate and tiny pleural effusion. Correlate for mild central interstitial edema.
[2018-12-17] MEDS ORDERED: methylPREDNISolone SOD SUCCI 125 MG/2 ML VIAL IV STA (12:09)
[2018-12-17 12:26] LABS: D-Dimer 0.91 mg/L FEU (<0.60)
[2018-12-17] MEDS ORDERED: FUROSEMIDE 10 MG/ML 2 ML VIAL IV STA (12:59)
--- NOTE | 2018-12-17 14:31 | NM ---
EXAMINATION TYPE: NM pul vent and perfuse DATE OF EXAM: 12/17/2018 COMPARISON: 12/17/2018 HISTORY: Difficulty breathing TECHNIQUE: Utilizing inhalation of 32.7 mCi Tc 99m DTPA aerosol and intravenous injection of 5.1 mCi of Tc 99m MAA, ventilation and perfusion images are acquired post injection in multiple projections. FINDINGS: No sizable mismatch perfusion defects. There is no evidence of mismatched defects. IMPRESSION: Low probability for pulmonary embolism
[2018-12-17] MEDS: IPRATROPIUM-ALBUTEROL 3 ML NEB INHALATION SCH ×2 (14:33→20:30)
[2018-12-17] MEDS ORDERED: AZITHROMYCIN 500 MG TAB PO SCH (15:00)
[2018-12-17 15:07] LABS: Appearance,Urine Clear (Clear); Bilirubin,Urine Negative (Negative); Blood,Urine Moderate (Negative); Color,Urine Yellow; Glucose,Urine (UA) Negative (Negative); Ketones,Urine Negative (Negative); Leukocyte Esterase,Urine Large (Negative); Mucus,Urine Rare /hpf; Nitrite,Urine Negative (Negative); Protein,Urine 1+ (Negative); RBC,Urine 7 /hpf (0-5); Specific Gravity,Urine 1.011 (1.001-1.035); Urobilinogen,Urine <2.0 mg/dL (<2.0); WBC,Urine 2 /hpf (0-5)
[2018-12-17] MEDS: methylPREDNISolone SOD SUCCI 125 MG/2 ML VIAL IV SCH ×2 (18:19→23:33)
[2018-12-17] MEDS ORDERED: TACROLIMUS 0.5 MG CAP PO SCH (21:00)
[2018-12-17] MEDS: CALCITRIOL 0.25 MCG CAP PO SCH (21:10)
[2018-12-17] MEDS: FERROUS SULFATE 325 MG TAB PO SCH (21:11)
[2018-12-17] MEDS: DOCUSATE 100 MG CAP PO SCH (21:11)
[2018-12-17] MEDS: MONTELUKAST 10 MG TAB PO SCH (21:12)
[2018-12-17] MEDS: SODIUM BICARBONATE TAB 650 MG TAB PO SCH (21:12)
[2018-12-17] MEDS: APIXABAN 5 MG TAB PO SCH (21:12)
[2018-12-17] MEDS: LABETALOL 200 MG TAB PO SCH ×2 (21:13→23:52)
[2018-12-17] MEDS: MYCOPHENOLATE MOFETIL 500 MG TAB PO SCH (21:13)
[2018-12-17] MEDS: TACROLIMUS 1 MG CAP PO SCH (22:35)
[2018-12-17] MEDS: TAMSULOSIN 0.4 MG CAP.ER.24H PO SCH (22:35)
[2018-12-18] MEDS: IPRATROPIUM-ALBUTEROL 3 ML NEB INHALATION SCH ×3 (07:52→19:41)
[2018-12-18] MEDS: methylPREDNISolone SOD SUCCI 125 MG/2 ML VIAL IV SCH ×3 (07:53→18:41)
[2018-12-18] MEDS ORDERED: ONDANSETRON 4 MG/2 ML VIAL IVP PRN ×2 (08:06→15:57)
[2018-12-18] MEDS: BENZONATATE 100 MG CAP PO SCH ×3 (08:38→20:17)
[2018-12-18] MEDS ORDERED: TACROLIMUS 1 MG CAP PO SCH (09:00)
[2018-12-18] MEDS: LABETALOL 200 MG TAB PO SCH ×2 (09:39→20:16)
[2018-12-18] MEDS: MYCOPHENOLATE MOFETIL 500 MG TAB PO SCH ×2 (09:40→20:17)
[2018-12-18] MEDS: APIXABAN 5 MG TAB PO SCH ×2 (09:40→20:17)
[2018-12-18] MEDS: PANTOPRAZOLE 40 MG TABLET PO SCH (09:41)
[2018-12-18] MEDS: PRAVASTATIN SODIUM 20 MG TAB PO SCH (09:42)
[2018-12-18] MEDS: FERROUS SULFATE 325 MG TAB PO SCH ×2 (09:42→20:16)
[2018-12-18] MEDS: ALLOPURINOL 100 MG TAB PO SCH (09:42)
[2018-12-18] MEDS: DOCUSATE 100 MG CAP PO SCH ×2 (09:42→20:16)
[2018-12-18] MEDS: TACROLIMUS 1 MG CAP PO SCH ×2 (09:46→20:16)
[2018-12-18] MEDS: SODIUM BICARBONATE TAB 650 MG TAB PO SCH ×2 (09:47→20:16)
[2018-12-18] MEDS ORDERED: PROMETHAZINE 25 MG TAB PO STA (11:27)
[2018-12-18] MEDS ORDERED: FUROSEMIDE 10 MG/ML 4 ML VIAL IV STA (12:00)
--- NOTE | 2018-12-18 12:52 | PN ---
PROGRESS NOTE Mr. Byers is a 53-year-old male status post renal and pancreatic transplant, who presented with symptoms of progressive dyspnea going on for the last few days. He also has a history of paroxysmal atrial fibrillation and has been anticoagulated. Today, he has been feeling nausea and vomiting. He has no chest discomfort. He has no clear fever. He has some lightheadedness. No palpitation. No syncope. He has no peripheral edema. No clear PND nor orthopnea. MEDICATION: Medications at home include Prograf, Augmentin started recently, Flomax, sodium bicarb, pravastatin, CellCept, Singulair, Protonix, iron, vitamin D, Colace, Rocaltrol, Eliquis 5 mg twice a day, Zyloprim, and . REVIEW OF SYSTEMS: RESPIRATORY SYSTEM: He had dyspnea on exertion and a cough, nonproductive. No fever. He has no history of documented obstructive lung disease. GI system: He had nausea and vomiting noted. No lower GI bleeding. system: He is status post renal transplant, has been stable. No dysuria or hematuria. NERVOUS SYSTEM: No history of stroke or seizure. PHYSICAL EXAMINATION: He is a 53-year-old male, alert, oriented, no apparent distress. Blood pressure elevated this morning in the 170s, yesterday was in the 120s to 150s. Heart rate in the 90s. HEAD: Normocephalic. Eyes: Sclerae anicteric. NECK: No bruit. LUNGS with minimal crackles at the bases. HEART: Irregularly irregular, S1, S2. No S3 with systolic murmur. No diastolic murmur. No rub. ABDOMEN: Soft, nontender. Positive bowel sounds. No organomegaly. EXTREMITIES: No edema. Intact distal pulses. LAB DATA: Lab data revealed hemoglobin of 11.5, white blood cell of 10.6. BUN and creatinine 30 and 1.28. Troponin less than 0.012. NT proBNP of 4430. D-dimer of 0.91. EKG revealed atrial flutter with variable block and nonspecific ST-T wave changes. Ventilation perfusion scan showed low probability for PE. Chest x-ray shows a questionable infiltrate on the left base. IMPRESSION: 1. Symptoms of progressive dyspnea with elevation of NT proBNP. On the examination, there is no clear evidence of CHF. There was a question of infectious process. In the past his left ventricular systolic function was normal by echocardiogram done in June of this year. 2. Paroxysmal atrial fibrillation-flutter anticoagulated. 3. Status post pancreatic and renal transplant. 4. Hyperlipidemia. 5. Hypertension. RECOMMENDATIONS: From the cardiac standpoint, I will add hydralazine to his regimen, decrease the dose of his labetalol. He will receive 1 dose of IV Lasix. Will obtain the input of the Pulmonary Service as well as Dr. Jo for his renal function. Depending on his progress, further recommendation will be made. Thank you for this consult. We will follow with you. MMODL / IJN: [id number] /
--- NOTE | 2018-12-18 13:15 | P.HPIM ---
History of Present Illness H&P Date: 12/18/18 53-year-old male one of Dr.Kut Dr. Winters/Melyssa Pressley regular basis who had double pancreas and kidney transplant 1988, 2000 diastolic CHF hypertension hyperlipidemia, and notable skin cancers,who apparently developed to have worsening shortness of breath and dyspnea for the last 1 day with yellowish productive sputum , without any fever no chills, increasing shortness of breath, persistence of cough. patient denies any PND, patient would have post to see vomiting, denies any leg swelling, patient has a nebulizer at home for which she doesn't need, he has CPAP machine at home for which he is compliant with his nasal CPAP use. Patient has pleurisy, dyspnea and exertion, no leg swelling or leg pain, and was subsequently seen in the emergency room. 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, alkaline phosphatase elevated at 532, aALT AST elevated no lipase was done, urinalysis shows 2 wbc on examination, clinically patient has left coarse rhonchi, suspicious of pneumonic infiltrate, patient is chronically immunosuppressed with steroids and antirejection drugs, IV antibiotics startedvancomycin and Zosyn, consult to S/Melyssa Pressley pulmonary, and infectious disease review the imaging studies in the past 2018, shows multifocal bron chopneumonia, and pericardial effusion with moderate sized effusion Review of Systems Constitutional: Reports as per HPI, Reports anorexia, Reports chills, Reports lethargy, Reports malaise, Reports poor appetite, Denies chronic headaches, Denies chronic pain, Denies daytime sleepiness, Denies fatigue, Denies fever, Denies night sweats, Denies sweats, Denies weakness, Denies weight gain, Denies weight loss Ears, nose, mouth and throat: Reports as per HPI, Denies ant. neck pain, Denies bleeding gums, Denies dental pain, Denies dysphagia, Denies epistaxis, Denies headache, Denies hoarseness, Denies mouth pain, Denies nasal congestion, Denies nasal discharge, Denies neck fullness/pressure, Denies neck lump, Denies nose pain, Denies odynophagia, Denies post-nasal drip, Denies sinus pain, Denies sinus pressure, Denies swelling in mouth, Denies swelling in throat, Denies sore throat, Denies vertigo, Denies voice changes Respiratory: Reports as per HPI, Reports congestion, Reports cough, Reports sle ep apnea Gastrointestinal: Reports as per HPI, Denies abdominal pain, Denies belching, Denies bloating, Denies BRBPR, Denies change in bowel habits, Denies coffee ground emesis, Denies constipation, Denies diarrhea, Denies dyspepsia, Denies early satiety, Denies excessive gas, Denies heartburn, Denies hematemesis, Denies hematochezia, Denies indigestion, Denies jaundice, Denies lactose intolerance, Denies loss of appetite, Denies melena, Denies nausea, Denies vomiting Genitourinary: Reports as per HPI Musculoskeletal: Reports as per HPI, Reports gait dysfunction, Reports limitation of motion, Reports myalgias Integumentary: Reports as per HPI Neurological: Reports as per HPI, Denies aphasia, Denies ataxia, Denies balance difficulties, Denies burning pain, Denies change in mentation, Denies change in smell/taste, Denies change in speech, Denies confusion, Denies convulsions, Denies double vision, Denies gait dysfunction, Denies head injury, Denies headaches, Denies hearing difficulties, Denies lack of coordination, Denies loss of vision, Denies memory loss, Denies migraines, Denies motor disturbance, Denies numbness, Denies paralysis, Denies paresthesias, Denies seizures, Denies sensory deficit, Denies spasticity, Denies syncope, Denies tic, Denies tingling, Denies transient paralysis, Denies tremors, Denies vertigo, Denies weakness, Denies visual changes Psychiatric: Reports as per HPI Endocrine: Reports as per HPI Hematologic/Lymphatic: Reports as per HPI Allergic/Immunologic: Reports as per HPI Past Medical History Past Medical History: Cancer, Heart Failure, Hyperlipidemia, Hypertension, Osteoarthritis (OA), Renal Disease, Sleep Apnea/CPAP/BIPAP Additional Past Medical History / Comment(s): ARDS, hx of DM was tx for dm from age 9 to age 35(had pancareas transplant), uses cpap machine, basal and squamous cell skin cancer, hx rt elbow broken-(sx), charcots foot History of Any Multi-Drug Resistant Organisms: None Reported Past Surgical History: Hernia Repair, Joint Replacement Additional Past Surgical History / Comment(s): kidney and pancreas transplant , L knee replacment, rt elbow sx has 7 screws,cataracts removed-lens implants, laser eye sx for retinopathy, fernando foot sx(rt foot bone gravt and lt foot bone shaved) Past Anesthesia/Blood Transfusion Reactions: No Reported Reaction Past Psychological History: No Psychological Hx Reported Smoking Status: Never smoker Past Alcohol Use History: Occasional Past Drug Use History: None Reported - Past Family History Mother Family Medical History: Cancer, Diabetes Mellitus Additional Family Medical History / Comment(s): liver cancer Father Family Medical History: CVA/TIA Additional Family Medical History / Comment(s): was smoker had ctroke in his 30's Medications and Allergies Home Medications Medication Instructions Recorded Confirmed Type Pravastatin Sodium [Pravachol] 20 mg PO MOTUTHSA 11/23/13 12/17/18 History Sodium Bicarbonate Tab 1,300 mg PO BID 11/23/13 12/17/18 History Lansoprazole 30 mg PO DAILY 07/14/18 12/17/18 History Tacrolimus [Prograf] 1 mg PO BID 07/14/18 12/17/18 History Apixaban [Eliquis] 5 mg PO BID 09/18/18 12/17/18 History Tamsulosin [Flomax] 0.4 mg PO HS 09/18/18 12/17/18 History predniSONE 5 mg PO DAILY 09/18/18 12/17/18 History Acitretin 25 mg PO DAILY 12/17/18 12/17/18 History Allopurinol [Zyloprim] 100 mg PO DAILY 12/17/18 12/17/18 History Amoxic-Pot Clav 875-125Mg 1 tab PO Q12HR 12/17/18 12/17/18 History [Augmentin 875-125] Calcitriol [Rocaltrol] 0.25 mcg PO MOTUWETHFR 12/17/18 12/17/18 History Docusate [Colace] 100 mg PO BID 12/17/18 12/17/18 History Ergocalciferol (Vitamin D2) 50,000 unit PO Q14D 12/17/18 12/17/18 History [Vitamin D2] Ferrous Sulfate [Feosol] 325 mg PO BID 12/17/18 12/17/18 History Montelukast [Singulair] 10 mg PO HS 12/17/18 12/17/18 History Mycophenolate Mofetil [Cellcept] 1,000 mg PO BID 12/17/18 12/17/18 History Allergies Allergy/AdvReac Type Severity Reaction Status Date / Time No Known Allergies Allergy Verified 12/17/18 10:58 Physical Exam Vitals: Vital Signs Temp Pulse Pulse Resp BP BP Pulse Ox 12/18/18 07:00 98.1 F 95 15 177/97 96 12/18/18 00:00 96 18 12/17/18 23:00 98.5 F 96 18 188/91 100 12/17/18 20:39 99 12/17/18 20:29 102 H 12/17/18 19:51 98.2 F 90 18 155/87 99 12/17/18 18:00 16 98 12/17/18 15:36 98.3 F 109 H 17 154/92 100 12/17/18 14:47 112 H 12/17/18 14:34 108 H 18 111/82 100 12/17/18 14:33 104 H 12/17/18 12:30 93 155/90 100 12/17/18 12:00 98 124/87 100 12/17/18 11:30 94 119/85 100 12/17/18 11:28 90 12/17/18 11:19 97 12/17/18 10:44 98.6 F 91 20 112/71 100 Intake and Output 12/17/18 12/18/18 12/18/18 22:59 06:59 14:59 Intake Total 712 490 Balance 712 490 Intake: IV 10 10 0.9 10 10 Oral 702 480 Other: Voiding Method Toilet # Voids 1 3 Weight 69.5 kg - Constitutional General appearance: cooperative, no acute distress - EENT Eyes: EOMI, PERRLA, dentition normal, normal appearance - Neck Neck: normal ROM - Respiratory Respiratory: left: rales, rhonchi, negative: CTA, diminished, prolonged expi ration, prolonged inspiration - Cardiovascular Rhythm: regular Heart sounds: normal: S1, S2 - Gastrointestinal General gastrointestinal: normal bowel sounds, soft - Integumentary scar tissue with a flap in these ascalp without any open wounds, multiple skin scars no open wounds either Integumentary: normal - Neurologic Neurologic: CNII-XII intact - Musculoskeletal Musculoskeletal: gait normal, strength equal bilaterally - Psychiatric Psychiatric: A&O x's 3 Results CBC & Chem 7: 12/17/18 11:18 12/17/18 11:18 Labs: Abnormal Lab Results - Last 24 Hours (Table) 12/17/18 12/17/18 12/17/18 Range/Units 11:18 11:18 11:18 Hgb 11.5 L (13.0-17.5) gm/dL Hct 36.7 L (39.0-53.0) % RDW 16.5 H (11.5-15.5) % Neutrophils # 8.1 H (1.3-7.7) k/uL Monocytes # 1.3 H (0-1.0) k/uL APTT 34.1 H (22.0-30.0) sec D-Dimer 0.91 H (<0.60) mg/L FEU Chloride 114 H (98-107) mmol/L Carbon Dioxide 12 L (22-30) mmol/L BUN 30 H (9-20) mg/dL Creatinine 1.28 H (0.66-1.25) mg/dL Glucose 101 H (74-99) mg/dL AST 91 H (17-59) U/L ALT 100 H (21-72) U/L Alkaline Phosphatase 532 H (38-126) U/L Urine Protein (Negative) Urine Blood (Negative) Ur Leukocyte Esterase (Negative) Urine RBC (0-5) /hpf Urine Mucus (None) /hpf 12/17/18 Range/Units 14:53 Hgb (13.0-17.5) gm/dL Hct (39.0-53.0) % RDW (11.5-15.5) % Neutrophils # (1.3-7.7) k/uL Monocytes # (0-1.0) k/uL APTT (22.0-30.0) sec D-Dimer (<0.60) mg/L FEU Chloride (98-107) mmol/L Carbon Dioxide (22-30) mmol/L BUN (9-20) mg/dL Creatinine (0.66-1.25) mg/dL Glucose (74-99) mg/dL AST (17-59) U/L ALT (21-72) U/L Alkaline Phosphatase (38-126) U/L Urine Protein 1+ H (Negative) Urine Blood Moderate H (Negative) Ur Leukocyte Esterase Large H (Negative) Urine RBC 7 H (0-5) /hpf Urine Mucus Rare H (None) /hpf Laboratory Results WBC 10.6 k/uL (3.8-10.6) 12/17/18 11:18 RBC 4.52 m/uL (4.30-5.90) 12/17/18 11:18 Hgb 11.5 gm/dL (13.0-17.5) L 12/17/18 11:18 Hct 36.7 % (39.0-53.0) L 12/17/18 11:18 MCV 81.3 fL (80.0-100.0) 12/17/18 11:18 MCH 25.5 pg (25.0-35.0) 12/17/18 11:18 MCHC 31.4 g/dL (31.0-37.0) 12/17/18 11:18 RDW 16.5 % (11.5-15.5) H 12/17/18 11:18 Plt Count 276 k/uL (150-450) 12/17/18 11:18 Neutrophils % 77 % 12/17/18 11:18 Lymphocytes % 9 % 12/17/18 11:18 Monocytes % 12 % 12/17/18 11:18 Eosinophils % 1 % 12/17/18 11:18 Basophils % 0 % 12/17/18 11:18 Neutrophils # 8.1 k/uL (1.3-7.7) H 12/17/18 11:18 Lymphocytes # 1.0 k/uL (1.0-4.8) 12/17/18 11:18 Monocytes # 1.3 k/uL (0-1.0) H 12/17/18 11:18 Eosinophils # 0.1 k/uL (0-0.7) 12/17/18 11:18 Basophils # 0.0 k/uL (0-0.2) 12/17/18 11:18 Anisocytosis Slight 12/17/18 11:18 PT 10.4 sec (9.0-12.0) 12/17/18 11:18 INR 1.0 (<1.2) 12/17/18 11:18 APTT 34.1 sec (22.0-30.0) H 12/17/18 11:18 D-Dimer 0.91 mg/L FEU (<0.60) H 12/17/18 11:18 Sodium 139 mmol/L (137-145) 12/17/18 11:18 Potassium 4.4 mmol/L (3.5-5.1) 12/17/18 11:18 Chloride 114 mmol/L (98-107) H 12/17/18 11:18 Carbon Dioxide 12 mmol/L (22-30) L 12/17/18 11:18 Anion Gap 13 mmol/L 12/17/18 11:18 BUN 30 mg/dL (9-20) H 12/17/18 11:18 Creatinine 1.28 mg/dL (0.66-1.25) H 12/17/18 11:18 Est GFR (CKD-EPI)AfAm 72 (>60 ml/min/1.73 sqM) 12/17/18 11:18 Est GFR (CKD-EPI)NonAf 63 (>60 ml/min/1.73 sqM) 12/17/18 11:18 Glucose 101 mg/dL (74-99) H 12/17/18 11:18 Calcium 9.0 mg/dL (8.4-10.2) 12/17/18 11:18 Total Bilirubin 1.0 mg/dL (0.2-1.3) 12/17/18 11:18 AST 91 U/L (17-59) H 12/17/18 11:18 ALT 100 U/L (21-72) H 12/17/18 11:18 Alkaline Phosphatase 532 U/L (38-126) H 12/17/18 11:18 Troponin I <0.012 ng/mL (0.000-0.034) 12/17/18 11:18 NT-Pro-B Natriuret Pep 4430 pg/mL 12/17/18 11:18 Total Protein 6.7 g/dL (6.3-8.2) 12/17/18 11:18 Albumin 3.5 g/dL (3.5-5.0) 12/17/18 11:18 Urine Color Yellow 12/17/18 14:53 Urine Appearance Clear (Clear) 12/17/18 14:53 Urine pH 6.0 (5.0-8.0) 12/17/18 14:53 Ur Specific [place] 1.011 (1.001-1.035) 12/17/18 14:53 Urine Protein 1+ (Negative) H 12/17/18 14:53 Urine Glucose (UA) Negative (Negative) 12/17/18 14:53 Urine Ketones Negative (Negative) 12/17/18 14:53 Urine Blood Moderate (Negative) H 12/17/18 14:53 Urine Nitrite Negative (Negative) 12/17/18 14:53 Urine Bilirubin Negative (Negative) 12/17/18 14:53 Urine Urobilinogen <2.0 mg/dL (<2.0) 12/17/18 14:53 Ur Leukocyte Esterase Large (Negative) H 12/17/18 14:53 Urine RBC 7 /hpf (0-5) H 12/17/18 14:53 Urine WBC 2 /hpf (0-5) 12/17/18 14:53 Urine Mucus Rare /hpf (None) H 12/17/18 14:53 Thrombosis Risk Factor Assmnt - DVT/VTE Prophylaxis DVT/VTE Prophylaxis: Pharmacologic Prophylaxis ordered - Choose All That Apply Any of the Below Risk Factors Present?: Yes Each Factor Represents 1 point: Age 41-60 years, Heart failure (<1month) Thrombosis Risk Factor Assessment Total Risk Factor Score: 2 Thrombosis Risk Factor Assessment Level: Low Risk Assessment and Plan Plan: 1. Bronchopneumonia suspected with immunocompromised suspect gram-negative as well as facilityacquired pneumoniapatient, undergoing antirejection drugs and chronic prednisone, patient was started on Zosyn and vancomycin, pharmacy to dose, consult infectious disease, Legionella type as mycoplasma titers, sputum cultures, IV Solu-Medrol, consult with Dr. Kevin/Melyssa Pressley pulmonary continue nebulized treatments, 2. COPD exacerbation, nebulized treatments and Solu-Medrol 3. CK D stage III consult Dr. Jo, renal transplant history 4. Diabetes mellitus type 1, currently not on any oral agents status post pancreatic transplantation 2000 10 Arrhythmia: Patient is doing very well on labetalol.long-term anticoagulation with Ahlquist 5 mg twice a day 6 Double kidney and pancreas transplant: Remain on Prograf along with CellCept and 5 mg of prednisone continue medication consult nephrology keep watching the kidney function with a current management. 7 History of obstructive sleep apnea: Has been on CPAP nasalon regular basis. 78Hypertension: Remain on labetalol 800 mg twice a day continue Norvasc 5 mg twice a day as well. 8 Hyperlipidemia: Remain on pravastatin. 9 History of skin cancer: Has been seen dermatology regular basis and in treatment.with graft on the scalp 10 GI prophylaxis: Continue patient on Pepcid 20 mg daily. 11 DVT prophylaxis: Patient will be on heparin subcutaneous. CODE STATUS: Full code.
[2018-12-18] MEDS: hydrALAZINE HCL 25 MG TAB PO SCH ×2 (13:16→20:22)
[2018-12-18] MEDS ORDERED: VANCOMYCIN 1,000 MG in SODIUM CHLORIDE 0.9% 250 ML IVPB STA (13:17)
--- NOTE | 2018-12-18 13:38 | P.CNPUL ---
History of Present Illness Consult date: 12/18/18 Reason for consult: dyspnea, cough, pulmonary fibrosis Chief complaint: Shortness of breath and cough started about 4 days ago History of present illness: Patient is seen and evaluated examined on fourth floor he is admitted into the hospital with 4 day history of increased cuff congestion shortness of breath with yellowish sputum production, patient sputum was initially white and into yellow dark in color for one day duration denies any chest pain denies any fever or chills, patient is a significant history of sleep disorder breathing and sleep apnea he uses CPAP machine regularly, is also status post double pancreas and kidney transplant back in 1988 and 2000 his other problems include hypertension dyslipidemia chronic diastolic heart failure as well, back in June and August 2018 he developed pneumonia course was complicated with development of ARDS but he was intubated successfully weaned and extubated afterwards the still have baseline shortness of breath on exertion did not use oxygen at home, in emergency room secondary to worsening of symptoms with imaging studies that shows low probability for PE on nuclear med studychest x- ray shows cardiomegaly with left basilar atelectasis or infiltrate and probably pleural effusion, mild central interstitial edemaWBC count of 10.6, d-dimer 0.91, creatinine 1.28 from a baseline of 1.21, 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, alkaline phosphatase elevated at 532, aALT AST elevated no lipase was done, urinalysis shows 2 wbc on examination, clinically patient has left coarse rhonchi, suspicious of pneumonic infiltrate, patient is chronically immunosuppressed with steroids and antirejection drugs, IV antibiotics started vancomycin and Zosyn, admit x-ray significant for left-sided atelectasis or pneumonia and probable small left effusion, VQ scan is low probability for PE Review of Systems All systems: negative Past Medical History Past Medical History: Cancer, Heart Failure, Hyperlipidemia, Hypertension, Osteoarthritis (OA), Renal Disease, Sleep Apnea/CPAP/BIPAP Additional Past Medical History / Comment(s): ARDS, hx of DM was tx for dm from age 9 to age 35(had pancareas transplant), uses cpap machine, basal and squamous cell skin cancer, hx rt elbow broken-(sx), charcots foot History of Any Multi-Drug Resistant Organisms: None Reported Past Surgical History: Hernia Repair, Joint Replacement Additional Past Surgical History / Comment(s): kidney and pancreas transplant , L knee replacment, rt elbow sx has 7 screws,cataracts removed-lens implants, laser eye sx for retinopathy, fernando foot sx(rt foot bone gravt and lt foot bone shaved) Past Anesthesia/Blood Transfusion Reactions: No Reported Reaction Past Psychological History: No Psychological Hx Reported Smoking Status: Never smoker Past Alcohol Use History: Occasional Past Drug Use History: None Reported - Past Family History Mother Family Medical History: Cancer, Diabetes Mellitus Additional Family Medical History / Comment(s): liver cancer Father Family Medical History: CVA/TIA Additional Family Medical History / Comment(s): was smoker had ctroke in his 30's Medications and Allergies Home Medications Medication Instructions Recorded Confirmed Type Pravastatin Sodium [Pravachol] 20 mg PO MOTUTHSA 11/23/13 12/17/18 History Sodium Bicarbonate Tab 1,300 mg PO BID 11/23/13 12/17/18 History Lansoprazole 30 mg PO DAILY 07/14/18 12/17/18 History Tacrolimus [Prograf] 1 mg PO BID 07/14/18 12/17/18 History Apixaban [Eliquis] 5 mg PO BID 09/18/18 12/17/18 History Tamsulosin [Flomax] 0.4 mg PO HS 09/18/18 12/17/18 History predniSONE 5 mg PO DAILY 09/18/18 12/17/18 History Acitretin 25 mg PO DAILY 12/17/18 12/17/18 History Allopurinol [Zyloprim] 100 mg PO DAILY 12/17/18 12/17/18 History Amoxic-Pot Clav 875-125Mg 1 tab PO Q12HR 12/17/18 12/17/18 History [Augmentin 875-125] Calcitriol [Rocaltrol] 0.25 mcg PO MOTUWETHFR 12/17/18 12/17/18 History Docusate [Colace] 100 mg PO BID 12/17/18 12/17/18 History Ergocalciferol (Vitamin D2) 50,000 unit PO Q14D 12/17/18 12/17/18 History [Vitamin D2] Ferrous Sulfate [Feosol] 325 mg PO BID 12/17/18 12/17/18 History Montelukast [Singulair] 10 mg PO HS 12/17/18 12/17/18 History Mycophenolate Mofetil [Cellcept] 1,000 mg PO BID 12/17/18 12/17/18 History Allergies Allergy/AdvReac Type Severity Reaction Status Date / Time No Known Allergies Allergy Verified 12/17/18 10:58 Physical Exam Vitals: Vital Signs Temp Pulse Pulse Resp BP BP Pulse Ox 12/18/18 07:00 98.1 F 95 15 177/97 96 12/18/18 00:00 96 18 12/17/18 23:00 98.5 F 96 18 188/91 100 12/17/18 20:39 99 12/17/18 20:29 102 H 12/17/18 19:51 98.2 F 90 18 155/87 99 12/17/18 18:00 16 98 12/17/18 15:36 98.3 F 109 H 17 154/92 100 12/17/18 14:47 112 H 12/17/18 14:34 108 H 18 111/82 100 12/17/18 14:33 104 H Intake and Output 12/17/18 12/18/18 12/18/18 22:59 06:59 14:59 Intake Total 712 490 Balance 712 490 Intake: IV 10 10 0.9 10 10 Oral 702 480 Other: Voiding Method Toilet # Voids 1 3 Weight 69.5 kg - Constitutional General appearance: average body habitus, cooperative, disheveled, mild distress - EENT Eyes: PERRLA, poor dentition, normal appearance Ears: bilateral: normal - Neck Neck: normal ROM Carotids: bilateral: upstroke normal Thyroid: bilateral: normal size - Respiratory Respiratory: bilateral: rales (More so on the left side compared right side), negative: CTA, diminished, dullness, rhonchi, wheezing, prolonged expiration - Cardiovascular Rhythm: regular Heart sounds: normal: S1, S2 - Gastrointestinal General gastrointestinal: distended, normal bowel sounds, soft - Integumentary Integumentary: decreased turgor, normal - Neurologic Neurologic: CNII-XII intact - Musculoskeletal Musculoskeletal: gait normal, generalized weakness, strength equal bilaterally - Psychiatric Psychiatric: A&O x's 3, appropriate affect, intact judgment & insight Results - Laboratory Findings CBC and BMP: 12/17/18 11:18 12/17/18 11:18 PT/INR, D-dimer PT 10.4 sec (9.0-12.0) 12/17/18 11:18 INR 1.0 (<1.2) 12/17/18 11:18 D-Dimer 0.91 mg/L FEU (<0.60) H 12/17/18 11:18 Abnormal lab findings: Abnormal Labs 12/17/18 12/17/18 12/17/18 11:18 11:18 11:18 Hgb 11.5 L Hct 36.7 L RDW 16.5 H Neutrophils # 8.1 H Monocytes # 1.3 H APTT 34.1 H D-Dimer 0.91 H Chloride 114 H Carbon Dioxide 12 L BUN 30 H Creatinine 1.28 H Glucose 101 H AST 91 H ALT 100 H Alkaline Phosphatase 532 H Urine Protein Urine Blood Ur Leukocyte Esterase Urine RBC Urine Mucus 12/17/18 14:53 Hgb Hct RDW Neutrophils # Monocytes # APTT D-Dimer Chloride Carbon Dioxide BUN Creatinine Glucose AST ALT Alkaline Phosphatase Urine Protein 1+ H Urine Blood Moderate H Ur Leukocyte Esterase Large H Urine RBC 7 H Urine Mucus Rare H - Diagnostic Findings Chest x-ray: report reviewed, image reviewed (Pending as noted above) Assessment and Plan Assessment: Community-acquired pneumonia versus gram-negative pneumonia Acute on chronic respiratory failure History of ARDS Possible pulmonary fibrosis chronic in nature Status post double renal and pancreatic transplant on immunosuppressive therapy Sleep disorder breathing and sleep apnea Diastolic heart failure chronic Hypertension hypertensive cardiovascular disease Plan: Agree with antibiotics Breathing treatments IV steroids [place] home medication including immunosuppressive therapy Continue blood pressure medicine Will get a computed tomography scan of the chest without contrast to look into pulmonary fibrosis versus pneumonia Time with Patient: Greater than 30
--- NOTE | 2018-12-18 13:58 | CT ---
EXAMINATION TYPE: CT chest wo con DATE OF EXAM: 12/18/2018 COMPARISON: 07/15/2018 HISTORY: COPD exacerbation, CHF exacerbation CT DLP: 297 mGycm. Automated Exposure Control for Dose Reduction was Utilized. TECHNIQUE: CT scan of the thorax is performed without IV contrast. FINDINGS: LUNGS: Within the left upper lobe there are patchy areas of groundglass infiltrate. There is also pat douglas areas of groundglass changes involving bilateral lower lobes with small left pleural effusion. No pneumothorax.. MEDIASTINUM: Lack of IV contrast is noted to limit evaluation for mediastinal and especially hilar ad enopathy. There are no definitive greater than 1 cm hilar or mediastinal lymph nodes. The heart is en larged. There is a small pericardial effusion. Coronary artery calcification noted. Atherosclerotic c hange aorta. OTHER: Small hiatal hernia. Kidneys are markedly atrophic and there is a trace amount of free fluid i n the abdomen. Hypertrophic and degenerative changes spine. Incidental note made of gynecomastia. Sma ll hiatal hernia noted. Splenic granuloma seen. Could not exclude mild wall thickening of the right c olon. IMPRESSION: 1. There are patchy groundglass areas seen bilaterally greater on the left which could be seen with a lveolitis or pneumonitis or early clinically. Small left pleural effusion also. Less likely considera tion would be mild interstitial venous congestion. 2. Trace amount of fluid within the abdominal cavity with markedly atrophic kidneys correlate for chr onic medical renal disease. Couldn't not exclude mild wall thickening right colon which is only parti ally included on the exam. Correlate clinically. 3. Cardiomegaly with dense coronary artery calcification and small pericardial effusion.
--- NOTE | 2018-12-18 14:22 | P.NPCON ---
History of Present Illness - Reason for Consult Consult date: 12/18/18 (Renal transplant) - Chief Complaint Cough and phlegm - History of Present Illness Coming to the hospital with the above complaints. He had a living related renal transplant in 1988. Then he had a second kidney pancreas transplant in 2000. The first transplant was from the mother and the second is from his brother. Baseline creatinine about 1.0-1.2 MG per DL currently at baseline. He follows with Dr. Jo as outpatient. His medications include Prograf 1 mg twice a day, prednisone 5 mg and CellCept 1000 mg twice daily. Denies nausea vomiting diarrhea. He is having cough with purulent phlegm. No fevers chills or rigers. Review of Systems Constitutional: Reports as per HPI Past Medical History Past Medical History: Cancer, Heart Failure, Hyperlipidemia, Hypertension, Osteoarthritis (OA), Renal Disease, Sleep Apnea/CPAP/BIPAP Additional Past Medical History / Comment(s): ARDS, hx of DM was tx for dm from age 9 to age 35(had pancareas transplant), uses cpap machine, basal and squamous cell skin cancer, hx rt elbow broken-(sx), charcots foot History of Any Multi-Drug Resistant Organisms: None Reported Past Surgical History: Hernia Repair, Joint Replacement Additional Past Surgical History / Comment(s): kidney and pancreas transplant , L knee replacment, rt elbow sx has 7 screws,cataracts removed-lens implants, laser eye sx for retinopathy, fernando foot sx(rt foot bone gravt and lt foot bone sh aved) Past Anesthesia/Blood Transfusion Reactions: No Reported Reaction Past Psychological History: No Psychological Hx Reported Smoking Status: Never smoker Past Alcohol Use History: Occasional Past Drug Use History: None Reported - Past Family History Mother Family Medical History: Cancer, Diabetes Mellitus Additional Family Medical History / Comment(s): liver cancer Father Family Medical History: CVA/TIA Additional Family Medical History / Comment(s): was smoker had ctroke in his 30's Medications and Allergies Home Medications Medication Instructions Recorded Confirmed Type Pravastatin Sodium [Pravachol] 20 mg PO MOTUTHSA 11/23/13 12/17/18 History Sodium Bicarbonate Tab 1,300 mg PO BID 11/23/13 12/17/18 History Lansoprazole 30 mg PO DAILY 07/14/18 12/17/18 History Tacrolimus [Prograf] 1 mg PO BID 07/14/18 12/17/18 History Apixaban [Eliquis] 5 mg PO BID 09/18/18 12/17/18 History Tamsulosin [Flomax] 0.4 mg PO HS 09/18/18 12/17/18 History predniSONE 5 mg PO DAILY 09/18/18 12/17/18 History Acitretin 25 mg PO DAILY 12/17/18 12/17/18 History Allopurinol [Zyloprim] 100 mg PO DAILY 12/17/18 12/17/18 History Amoxic-Pot Clav 875-125Mg 1 tab PO Q12HR 12/17/18 12/17/18 History [Augmentin 875-125] Calcitriol [Rocaltrol] 0.25 mcg PO MOTUWETHFR 12/17/18 12/17/18 History Docusate [Colace] 100 mg PO BID 12/17/18 12/17/18 History Ergocalciferol (Vitamin D2) 50,000 unit PO Q14D 12/17/18 12/17/18 History [Vitamin D2] Ferrous Sulfate [Feosol] 325 mg PO BID 12/17/18 12/17/18 History Montelukast [Singulair] 10 mg PO HS 12/17/18 12/17/18 History Mycophenolate Mofetil [Cellcept] 1,000 mg PO BID 12/17/18 12/17/18 History Allergies Allergy/AdvReac Type Severity Reaction Status Date / Time No Known Allergies Allergy Verified 12/17/18 10:58 Physical Exam Vitals: Vital Signs Temp Pulse Pulse Resp BP BP Pulse Ox 12/18/18 07:00 98.1 F 95 15 177/97 96 12/18/18 00:00 96 18 12/17/18 23:00 98.5 F 96 18 188/91 100 12/17/18 20:39 99 12/17/18 20:29 102 H 12/17/18 19:51 98.2 F 90 18 155/87 99 12/17/18 18:00 16 98 12/17/18 15:36 98.3 F 109 H 17 154/92 100 12/17/18 14:47 112 H 12/17/18 14:34 108 H 18 111/82 100 12/17/18 14:33 104 H Intake and Output 12/17/18 12/18/18 12/18/18 22:59 06:59 14:59 Intake Total 712 490 Balance 712 490 Intake: IV 10 10 0.9 10 10 Oral 702 480 Other: Voiding Method Toilet # Voids 1 3 Weight 69.5 kg No acute distress S1-S2 heard Crackles in the lungs No edema Results - Lab Results Most recent lab results Calcium 9.0 mg/dL (8.4-10.2) 12/17/18 11:18 12/17/18 11:18 12/17/18 11:18 Assessment and Plan Assessment: #1 status post kidney pancreas transplant, 1988 in 2001 a living related. #2 chronic kidney disease stage III secondary to renal transplant baseline creatinine 1.0-1.2 MG per DL. #3 bilateral pneumonia #4 non-gap metabolic acidosis #5 hypertension with chronic kidney disease #6 anemia with chronic kidney disease Plan: #1 creatinine currently at baseline. Monitor renal function closely #2 continue with immunosuppressants with Prograf and CellCept. Currently on IV steroids so hold off by mouth prednisone. #3 avoid nephrotoxic agents and hypotensive episodes. Thank you very much for this consultation we'll follow along while he is in the hospital
[2018-12-18] MEDS ORDERED: guaiFENesin-DM 100-10MG/5ML 10 ML CUP PO PRN (15:54)
[2018-12-18] MEDS ORDERED: hydrOXYzine PAMOATE 25 MG CAP PO PRN (15:55)
[2018-12-18] MEDS ORDERED: VANCOMYCIN IV PER PHARMACY 1 EACH MISC MISCELLANE PRN (15:57)
[2018-12-18] MEDS: PIPERACILLIN-TAZOBACTAM 3.375 GM in SODIUM CHLORIDE 0.9% 100 ML IVPB SCH (16:27)
[2018-12-18] MEDS: PSYLLIUM HUSK 100% 6 GM PACKET PO SCH (20:15)
[2018-12-18] MEDS: TAMSULOSIN 0.4 MG CAP.ER.24H PO SCH (20:16)
[2018-12-18] MEDS: CALCITRIOL 0.25 MCG CAP PO SCH (20:16)
[2018-12-18] MEDS: MONTELUKAST 10 MG TAB PO SCH (20:22)
[2018-12-18 21:36] LABS: Glucose,Whole Blood 197 mg/dL (75-99)
--- NOTE | 2018-12-18 23:09 | P.CONS ---
History of Present Illness - Reason for Consult Consult date: 12/18/18 Pneumonia Requesting physician: Miroslava Sanchez - Chief Complaint Shortness of breath and cough x few days - History of Present Illness Patient is a 53-year-old male with a past medical history significant for living related renal transplant initial one was in 1988 and Second one was 2000 patient is currently on immunosuppressive medication under care of Dr. 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 The symptoms the patient has been evaluated by the ER physician he did have a VQ scan which was low probability for PE CT of the chest did shows alveolitis mostly the left upper lobe suspicious for pneumonia patient has been started on vancomycin and Zosyn and infectious disease was consulted for further recommendation regarding antibiotic therapy Review of Systems Positive points has been mentioned in HPI rest of the systems negative Past Medical History Past Medical History: Cancer, Heart Failure, Hyperlipidemia, Hypertension, Osteoarthritis (OA), Renal Disease, Sleep Apnea/CPAP/BIPAP Additional Past Medical History / Comment(s): ARDS, hx of DM was tx for dm from age 9 to age 35(had pancareas transplant), uses cpap machine, basal and squamous cell skin cancer, hx rt elbow broken-(sx), charcots foot History of Any Multi-Drug Resistant Organisms: None Reported Past Surgical History: Hernia Repair, Joint Replacement Additional Past Surgical History / Comment(s): kidney and pancreas transplant , L knee replacment, rt elbow sx has 7 screws,cataracts removed-lens implants, laser eye sx for retinopathy, fernando foot sx(rt foot bone gravt and lt foot bone shaved) Past Anesthesia/Blood Transfusion Reactions: No Reported Reaction Past Psychological History: No Psychological Hx Reported Smoking Status: Never smoker Past Alcohol Use History: Occasional Past Drug Use History: None Reported - Past Family History Mother Family Medical History: Cancer, Diabetes Mellitus Additional Family Medical History / Comment(s): liver cancer Father Family Medical History: CVA/TIA Additional Family Medical History / Comment(s): was smoker had ctroke in his 30's Medications and Allergies Home Medications Medication Instructions Recorded Confirmed Type Pravastatin Sodium [Pravachol] 20 mg PO MOTUTHSA 11/23/13 12/17/18 History Sodium Bicarbonate Tab 1,300 mg PO BID 11/23/13 12/17/18 History Lansoprazole 30 mg PO DAILY 07/14/18 12/17/18 History Tacrolimus [Prograf] 1 mg PO BID 07/14/18 12/17/18 History Apixaban [Eliquis] 5 mg PO BID 09/18/18 12/17/18 History Tamsulosin [Flomax] 0.4 mg PO HS 09/18/18 12/17/18 History predniSONE 5 mg PO DAILY 09/18/18 12/17/18 History Acitretin 25 mg PO DAILY 12/17/18 12/17/18 History Allopurinol [Zyloprim] 100 mg PO DAILY 12/17/18 12/17/18 History Amoxic-Pot Clav 875-125Mg 1 tab PO Q12HR 12/17/18 12/17/18 History [Augmentin 875-125] Calcitriol [Rocaltrol] 0.25 mcg PO MOTUWETHFR 12/17/18 12/17/18 History Docusate [Colace] 100 mg PO BID 12/17/18 12/17/18 History Ergocalciferol (Vitamin D2) 50,000 unit PO Q14D 12/17/18 12/17/18 History [Vitamin D2] Ferrous Sulfate [Feosol] 325 mg PO BID 12/17/18 12/17/18 History Montelukast [Singulair] 10 mg PO HS 12/17/18 12/17/18 History Mycophenolate Mofetil [Cellcept] 1,000 mg PO BID 12/17/18 12/17/18 History Allergies Allergy/AdvReac Type Severity Reaction Status Date / Time No Known Allergies Allergy Verified 12/17/18 10:58 Physical Exam Vitals: Vital Signs Temp Pulse Resp BP Pulse Ox 12/18/18 20:10 97.8 F 99 18 173/79 86 L 12/18/18 14:42 98.0 F 90 16 178/82 99 12/18/18 07:00 98.1 F 95 15 177/97 96 12/18/18 00:00 96 18 12/17/18 23:00 98.5 F 96 18 188/91 100 Intake and Output 12/18/18 12/18/18 12/18/18 06:59 14:59 22:59 Intake Total 490 Balance 490 Intake: IV 10 0.9 10 Oral 480 Other: Voiding Method Toilet # Voids 3 1 Weight 69.5 kg GENERAL DESCRIPTION: Middle-aged male up in the chair, no distress. No tachypnea or accessory muscle of respiration use. HEENT: Shows Pallor , no scleral icterus. Oral mucous membrane is dry. No p haryngeal erythema or thrush NECK: Trachea central, no thyromegaly. LUNGS: Unlabored breathing. Decreased breath sound at the base. No wheeze or crackle. HEART: S1, S2, regular rate and rhythm. No loud murmur ABDOMEN: Soft, no tenderness , guarding or rigidity, no organomegaly EXTREMITIES: No edema of feet. SKIN: No rash, no masses palpable. NEUROLOGICAL: The patient is awake, alert, oriented x3, mood and affect normal Results CBC & Chem 7: 12/17/18 11:18 12/18/18 14:21 Labs: Abnormal Lab Results - Last 24 Hours (Table) 12/18/18 12/18/18 Range/Units 14:21 20:58 Creatinine 1.80 H (0.66-1.25) mg/dL POC Glucose (mg/dL) 197 H (75-99) mg/dL Assessment and Plan Assessment: 1-patient presenting to the hospital with increasing shortness of breath ration also have a cough bringing up some yellow sputum and no hemoptysis with evidence of left-sided infiltrate on the CT suspicious for pneumonitis will need to cover for resistant gram-negative pathogen in addition to the routine community- acquired pathogen in this patient who do have renal transplant and currently on immunosuppressive medication, clinical suspicion is low for her leg MRSA pneumonia in this patient who is high risk of nephrotoxicity from the vancomycin especially in combination with the Zosyn Plan: 1-we will try to obtain sputum for Gram stain and culture 2-Zosyn 3.375 g every 8 hour to continue however discontinue the vancomycin we will follow up on clinical condition and cultures to further adjust medication if needed Thank you for this consultation will follow this patient along with you Time with Patient: Greater than 30
[2018-12-19] MEDS: PIPERACILLIN-TAZOBACTAM 3.375 GM in SODIUM CHLORIDE 0.9% 100 ML IVPB SCH ×3 (01:45→15:26)
[2018-12-19] MEDS: methylPREDNISolone SOD SUCCI 125 MG/2 ML VIAL IV SCH ×3 (01:46→13:54)
[2018-12-19] MEDS: IPRATROPIUM-ALBUTEROL 3 ML NEB INHALATION SCH ×4 (07:49→19:49)
[2018-12-19 07:53] LABS: Glucose,Whole Blood 170 mg/dL (75-99)
[2018-12-19] MEDS ORDERED: VANCOMYCIN 1,250 MG in SODIUM CHLORIDE 0.9% 250 ML IVPB SCH (08:00)
[2018-12-19] MEDS: PANTOPRAZOLE 40 MG TABLET PO SCH (08:03)
[2018-12-19] MEDS: INSULIN ASPART (NovoLOG) 100 UNIT/ML VIAL SQ SCH ×4 (08:03→21:09)
[2018-12-19] MEDS: SODIUM CHLORIDE 0.9% 1,000 ML IV SCH (08:11)
[2018-12-19] MEDS: DOCUSATE 100 MG CAP PO SCH ×2 (08:14→21:09)
[2018-12-19] MEDS: LABETALOL 200 MG TAB PO SCH ×2 (08:14→21:09)
[2018-12-19] MEDS: ALLOPURINOL 100 MG TAB PO SCH (08:14)
[2018-12-19] MEDS: APIXABAN 5 MG TAB PO SCH ×2 (08:15→21:09)
[2018-12-19] MEDS: BENZONATATE 100 MG CAP PO SCH ×3 (08:15→21:10)
[2018-12-19] MEDS: hydrALAZINE HCL 25 MG TAB PO SCH ×3 (08:15→21:10)
[2018-12-19] MEDS: TACROLIMUS 1 MG CAP PO SCH ×2 (08:15→21:10)
[2018-12-19] MEDS: MYCOPHENOLATE MOFETIL 500 MG TAB PO SCH ×2 (08:15→21:09)
[2018-12-19] MEDS: FERROUS SULFATE 325 MG TAB PO SCH ×2 (08:15→21:09)
[2018-12-19] MEDS: SODIUM BICARBONATE TAB 650 MG TAB PO SCH ×2 (08:15→21:09)
[2018-12-19] MEDS: PSYLLIUM HUSK 100% 6 GM PACKET PO SCH ×2 (08:18→21:10)
[2018-12-19 08:49] LABS: Anisocytosis Slight; Basophils # (A) 0.1 k/uL (0-0.2); Basophils % (A) 1 %; Eosinophils % (A) 0 %; HCT 35.5 % (39.0-53.0); Hypochromasia Moderate; Lymphocytes # (A) 0.2 k/uL (1.0-4.8); Lymphocytes % (A) 1 %; MCH 25.4 pg (25.0-35.0); MCHC 31.1 g/dL (31.0-37.0); MCV 81.7 fL (80.0-100.0); Monocytes # (A) 0.3 k/uL (0-1.0); Monocytes % (A) 2 %; Neutrophils # (A) 14.5 k/uL (1.3-7.7); Neutrophils % (A) 96 %; Platelet Count 329 k/uL (150-450); RBC 4.34 m/uL (4.30-5.90); RDW 16.7 % (11.5-15.5); WBC 15.1 k/uL (3.8-10.6)
[2018-12-19 08:58] LABS: Albumin 3.6 g/dL (3.5-5.0); Calcium 8.8 mg/dL (8.4-10.2); Potassium 4.9 mmol/L (3.5-5.1); Total Bilirubin 0.5 mg/dL (0.2-1.3); Total Protein 6.6 g/dL (6.3-8.2)
--- NOTE | 2018-12-19 09:42 | P.PN ---
Subjective Progress Note Date: 12/19/18 53-year-old male one of Dr.Kut Dr. Winters/Melyssa Pressley regular basis who had double pancreas and kidney transplant 1988, 2000 diastolic CHF hypertension hyperlipidemia, and notable skin cancers,who apparently developed to have worsening shortness of breath and dyspnea for the last 1 day with yellowish productive sputum , without any fever no chills, increasing shortness of breath, persistence of cough. patient denies any PND, patient would have post to see vomiting, denies any leg swelling, patient has a nebulizer at home for which she doesn't need, he has CPAP machine at home for which he is compliant with his nasal CPAP use. Patient has pleurisy, dyspnea and exertion, no leg swelling or leg pain, and was subsequently seen in the emergency room. Patient was subsequently seen in emergency room secondary to worsening of symptoms with imaging studiesthat shows low probability for PE on nuclear med studychest x-ray shows cardiomegaly with left basilar atelectasis or infiltrate and probably pleural effusion, mild central interstitial edemaWBC count of 10.6, d-dimer 0.91, creatinine 1.28 from a baseline of 1.21, [employer] proBNP of 4430, alkaline phosphatase elevated at 532, aALT AST elevated no lipase was done, urinalysis shows 2 wbc on examination, clinically patient has left coarse rhonchi, suspicious of pneumonic infiltrate, patient is chronically immunosuppressed with steroids and antirejection drugs, IV antibiotics startedvancomycin and Zosyn, consult to S/Melyssa Pressley pulmonary, and infectious disease review the imaging studies in the past 2018, shows multifocal bronchopneu monia, and pericardial effusion with moderate sized effusion 12/19: Patient is followed by Dr. Ann with plan to continue antibiotics, nebulizer treatments and IV steroids. CT of the chest revealed patchy groundglass areas seen bilaterally greater on the left which could be seen with alveolitis or p neumonitis. Small left pleural effusion. Less likely consideration would be mild interstitial venous congestion. Trace amount of fluid within the abdominal cavity with markedly atrophic kidneys correlate for chronic medical renal disease. Could not exclude mild wall thickening right: Which is only partially included on the exam. Cardiomegaly with dense coronary artery calcification and small pericardial effusion. Patient is followed by nephrology with plan to continue Prograf and CellCept and prednisone while on Solu-Medrol. Avoid nephrotoxic agents and hypotension. Dr. Carson discontinued vancomycin and plan to continue Zosyn. Patient states he is feeling a little bit better from yes terday and shortness of breath is decreased. He is coughing with a little sputum production and nursing will obtain culture cup for him. He is currently on Solu-Medrol 60 mg every 6 hours which will be decreased to every 8 hours. Patient has been afebrile, blood pressure 157/78, heart rate 98, pulse ox 97% on room air. Hydralazine increased 25 mg to 3 times daily and continue labetalol. is using CPAP at nighttime. WBC 15.1, hemoglobin 11.0, BUN 56 and creatinine 2.24. Blood sugars running 1 7197. Chloride is 113 and CO2 of 15. Patient is on oral sodium bicarb. Objective - Vital Signs Vital signs: Vital Signs Temp 98.1 F 12/19/18 02:10 Pulse 87 12/19/18 02:10 Resp 16 12/19/18 02:10 BP 162/84 12/19/18 02:10 Pulse Ox 98 12/19/18 02:10 Intake & Output 12/18/18 12/18/18 12/19/18 06:59 18:59 06:59 Intake Total 980 Balance 980 Weight 69.5 kg 68.5 kg Intake: IV 20 0.9 20 Oral 960 Other: Voiding Method Toilet # Voids 3 1 2 - Exam Review of Systems Constitutional: Reports as per HPI, Reports anorexia, Reports chills, Reports lethargy, Reports malaise, Reports poor appetite, Denies chronic headaches, Denies chronic pain, Denies daytime sleepiness, Denies fatigue, Denies fever, Denies night sweats, Denies sweats, Denies weakness, Denies weight gain, Denies weight loss Ears, nose, mouth and throat: Reports as per HPI, Denies ant. neck pain, Denies bleeding gums, Denies dental pain, Denies dysphagia, Denies epistaxis, Denies headache, Denies hoarseness, Denies mouth pain, Denies nasal congestion, Denies nasal discharge, Denies neck fullness/pressure, Denies neck lump, Denies nose pain, Denies odynophagia, Denies post-nasal drip, Denies sinus pain, Denies sinus pressure, Denies swelling in mouth, Denies swelling in throat, Denies sore throat, Denies vertigo, Denies voice changes Respiratory: Reports as per HPI, Reports congestion, Reports cough, reports sputum production, reports shortness of breath, Reports sleep apnea Gastrointestinal: Reports as per HPI, Denies abdominal pain, Denies belching, Denies bloating, Denies BRBPR, Denies change in bowel habits, Denies coffee ground emesis, Denies constipation, Denies diarrhea, Denies dyspepsia, Denies early satiety, Denies excessive gas, Denies heartburn, Denies hematemesis, Denies hematochezia, Denies indigestion, Denies jaundice, Denies lactose intolerance, Denies loss of appetite, Denies melena, Denies nausea, Denies vomiting Genitourinary: Reports as per HPI Musculoskeletal: Reports as per HPI, Reports gait dysfunction, Reports limitation of motion, Reports myalgias Integumentary: Reports as per HPI Neurological: Reports as per HPI, Denies aphasia, Denies ataxia, Denies balance difficulties, Denies burning pain, Denies change in mentation, Denies change in smell/taste, Denies change in speech, Denies confusion, Denies convulsions, Denies double vision, Denies gait dysfunction, Denies head injury, Denies headaches, Denies hearing difficulties, Denies lack of coordination, Denies loss of vision, Denies memory loss, Denies migraines, Denies motor disturbance, Denies numbness, Denies paralysis, Denies paresthesias, Denies seizures, Denies sensory deficit, Denies spasticity, Denies syncope, Denies tic, Denies tingling, Denies transient paralysis, Denies tremors, Denies vertigo, Denies weakness, Denies visual changes Psychiatric: Reports as per HPI Endocrine: Reports as per HPI Hematologic/Lymphatic: Reports as per HPI Allergic/Immunologic: Reports as per HPI Physical Exam: - Constitutional General appearance: cooperative, no acute distress sitting up in bed - EENT Eyes: EOMI, PERRLA, dentition normal, normal appearance - Neck Neck: normal ROM - Respiratory Respiratory: left: rales, rhonchi, negative: CTA, diminished, prolonged expira tion, prolonged inspiration - Cardiovascular Rhythm: regular Heart sounds: normal: S1, S2 - Gastrointestinal General gastrointestinal: normal bowel sounds, soft - Integumentary scar tissue with a flap in these ascalp without any open wounds, multiple skin scars no open wounds either Integumentary: normal - Neurologic Neurologic: CNII-XII intact - Musculoskeletal Musculoskeletal: gait normal, strength equal bilaterally - Psychiatric Psychiatric: A&O x's 3 - Labs CBC & Chem 7: 12/19/18 07:50 12/19/18 07:50 Labs: Abnormal Lab Results - Last 24 Hours (Table) 12/18/18 12/18/18 Range/Units 14:21 20:58 Creatinine 1.80 H (0.66-1.25) mg/dL POC Glucose (mg/dL) 197 H (75-99) mg/dL Assessment and Plan Plan: 1. Bronchopneumonia suspected with immunocompromised suspect gram-negative as well as facility acquired pneumonia undergoing antirejection drugs and chronic prednisone, patient was started on Zosyn, vancomycin discontinued. Legionella and Mycoplasma pending. Sputum culture to be obtained. IV Solu-Medrol decreased to 60 mg every 8 hours. Consults with pulmonary medicine and infect ious disease appreciated. Continue nebulizer treatments and Pulmicort. 2. COPD exacerbation, nebulized treatments and Solu-Medrol 3. Acute kidney injury with metabolic acidosis and CKD stage III consult Dr. Jo, renal transplant history. Continue antirejection medications. Prednisone on hold while on prednisone. Continue sodium bicarb 4. Diabetes mellitus type 1, currently not on any oral agents status post pancreatic transplantation 2000 5. Arrhythmia: Patient is doing very well on labetalol. Long-term anticoagulation with eliquis 5 mg twice a day 6. Double kidney and pancreas transplant: Remain on Prograf along with CellCept, consult nephrology keep watching the kidney function with a current management. 7. History of obstructive sleep apnea: Has been on CPAP. 8. Hypertension: Remain on labetalol 800 mg twice a day continue Norvasc 5 mg twice a day as well. 9. Hyperlipidemia: Remain on pravastatin. 10. History of skin cancer: Has been seen dermatology regular basis and in treatment.with graft on the scalp 11. GI prophylaxis: Continue patient on Pepcid 20 mg daily. 12. DVT prophylaxis: Continue eliquis. CODE STATUS: Full code. Discharge plan: Most likely home on Saturday with homecare. Impression and plan of care have been directed as dictated by the signing physician. Chata Garcia nurse practitioner acting as scribe for signing physician.
--- NOTE | 2018-12-19 11:41 | P.PN ---
Subjective Progress Note Date: 12/19/18 Seen and examined for the follow-up of renal transplant. Worsening creatinine. Decreased urine output yesterday. Started on IV fluids 50 ML's an hour this morning. No nausea vomiting or diarrhea. He as per his he was not eating drinking well for the last couple of days. Objective - Vital Signs Vital signs: Vital Signs Temp 98.0 F 12/19/18 07:00 Pulse 84 12/19/18 11:35 Resp 16 12/19/18 07:00 BP 157/78 12/19/18 07:00 Pulse Ox 97 12/19/18 07:00 Intake & Output 12/18/18 12/19/18 12/19/18 18:59 06:59 18:59 Weight 68.5 kg Other: Voiding Method Toilet # Voids 1 2 - Exam No acute distress S1-S2 heard Bilateral coarse breath sounds. No edema - Labs CBC & Chem 7: 12/19/18 07:50 12/19/18 07:50 Labs: Abnormal Lab Results - Last 24 Hours (Table) 12/18/18 12/18/18 12/19/18 Range/Units 14:21 20:58 07:50 WBC (3.8-10.6) k/uL Hgb (13.0-17.5) gm/dL Hct (39.0-53.0) % RDW (11.5-15.5) % Neutrophils # (1.3-7.7) k/uL Lymphocytes # (1.0-4.8) k/uL Chloride 113 H (98-107) mmol/L Carbon Dioxide 15 L (22-30) mmol/L BUN 56 H (9-20) mg/dL Creatinine 1.80 H 2.24 H (0.66-1.25) mg/dL Glucose 167 H (74-99) mg/dL POC Glucose (mg/dL) 197 H (75-99) mg/dL Alkaline Phosphatase 363 H (38-126) U/L 12/19/18 12/19/18 Range/Units 07:50 07:50 WBC 15.1 H (3.8-10.6) k/uL Hgb 11.0 L (13.0-17.5) gm/dL Hct 35.5 L (39.0-53.0) % RDW 16.7 H (11.5-15.5) % Neutrophils # 14.5 H (1.3-7.7) k/uL Lymphocytes # 0.2 L (1.0-4.8) k/uL Chloride (98-107) mmol/L Carbon Dioxide (22-30) mmol/L BUN (9-20) mg/dL Creatinine (0.66-1.25) mg/dL Glucose (74-99) mg/dL POC Glucose (mg/dL) 170 H (75-99) mg/dL Alkaline Phosphatase (38-126) U/L Assessment and Plan Assessment: #1 acute allograft dysfunction secondary to prerenal process. #2 chronic kidney disease stage II with baseline creatinine of 1.0-1.2 MG per DL secondary to renal transplant. #3 status post SKP in 2001 and previous renal transplant in 1988. [LRA.] #4 bilateral p #5 non-gap metabolic a #6 hypertension with chronic kidney di #7 anemia with chronic kidney disease Plan: #1 increase IV fluids from 50 ML's to 75 ML's an hour and advise for ultrafiltration as well. #2 check Prograf level in the morning #3 continue with immunosuppressants for now. Prograf 1 mg twice a day and CellCept 1000 mg twice a day. Currently on steroids, so no oral prednisone. #4 avoid nephrotoxic agents and hypotensive episodes.
[2018-12-19 11:51] LABS: Glucose,Whole Blood 142 mg/dL (75-99)
[2018-12-19 16:35] LABS: Glucose,Whole Blood 172 mg/dL (75-99)
[2018-12-19] MEDS ORDERED: BISACODYL 10 MG SUPP RECTAL STA (18:19)
--- NOTE | 2018-12-19 20:44 | P.PN ---
Subjective Progress Note Date: 12/19/18 Principal diagnosis: Left-sided pneumonia, immunosuppressed status status post renal and pancreatic transplant, history of ARDS, sleep apnea, diastolic heart failure, and chronic, hypertension hypertensive cardiovascular disease 12/19/2018, patient seen eval reexamined around off of oxygen ambulating in room his major concern is constipation computed tomography scan of the chest is reviewed findings discussed with patient and at length, there is patchy bilateral groundglass attenuation at the bases are seen 7 involvement of left- sided effusion is present as well Patient is seen and evaluated examined on fourth floor he is admitted into the hospital with 4 day history of increased cuff congestion shortness of breath with yellowish sputum production, patient sputum was initially white and into yellow dark in color for one day duration denies any chest pain denies any fever or chills, patient is a significant history of sleep disorder breathing and sleep apnea he uses CPAP machine regularly, is also status post double pancreas and kidney transplant back in 1988 and 2000 his other problems include hypertension dyslipidemia chronic diastolic heart failure as well, back in June and August 2018 he developed pneumonia course was complicated with development of ARDS but he was intubated successfully weaned and extubated afterwards the still have baseline shortness of breath on exertion did not use oxygen at home, in emergency room secondary to worsening of symptoms with imaging studies that shows low probability for PE on nuclear med studychest x- ray shows cardiomegaly with left basilar atelectasis or infiltrate and probably pleural effusion, mild central interstitial edemaWBC count of 10.6, d-dimer 0.91, creatinine 1.28 from a baseline of 1.21, AUTOM[employer] proBNP of 4430, alkaline phosphatase elevated at 532, aALT AST elevated no lipase was done, urinalysis shows 2 wbc on examination, clinically patient has left coarse rhonchi, suspicious of pneumonic infiltrate, patient is chronically immunosuppressed with steroids and antirejection drugs, IV antibiotics started vancomycin and Zosyn, admit x-ray significant for left-sided atelectasis or pneumonia and probable small left effusion, VQ scan is low probability for PE Objective - Vital Signs Vital signs: Vital Signs Temp 98.3 F 12/19/18 19:25 Pulse 86 12/19/18 20:01 Resp 18 12/19/18 19:25 BP 163/75 12/19/18 19:25 Pulse Ox 100 07/05/19 19:50 Intake & Output 12/19/18 12/19/18 12/20/18 06:59 18:59 06:59 Weight 68.5 kg Other: Voiding Method Toilet # Voids 2 2 - Exam - Constitutional General appearance: average body habitus, cooperative, disheveled, mild distress - EENT Eyes: PERRLA, poor dentition, normal appearance Ears: bilateral: normal - Neck Neck: normal ROM Carotids: bilateral: upstroke normal Thyroid: bilateral: normal size - Respiratory Respiratory: bilateral: rales (More so on the left side compared right side), negative: CTA, diminished, dullness, rhonchi, wheezing, prolonged expiration - Cardiovascular Rhythm: regular Heart sounds: normal: S1, S2 - Gastrointestinal General gastrointestinal: distended, normal bowel sounds, soft - Integumentary Integumentary: decreased turgor, normal - Neurologic Neurologic: CNII-XII intact - Musculoskeletal Musculoskeletal: gait normal, generalized weakness, strength equal bilaterally - Psychiatric Psychiatric: A&O x's 3, appropriate affect, intact judgment & insight - Labs CBC & Chem 7: 12/19/18 07:50 12/19/18 07:50 Labs: Abnormal Lab Results - Last 24 Hours (Table) 12/18/18 12/19/18 12/19/18 Range/Units 20:58 07:50 07:50 WBC 15.1 H (3.8-10.6) k/uL Hgb 11.0 L (13.0-17.5) gm/dL Hct 35.5 L (39.0-53.0) % RDW 16.7 H (11.5-15.5) % Neutrophils # 14.5 H (1.3-7.7) k/uL Lymphocytes # 0.2 L (1.0-4.8) k/uL Chloride 113 H (98-107) mmol/L Carbon Dioxide 15 L (22-30) mmol/L BUN 56 H (9-20) mg/dL Creatinine 2.24 H (0.66-1.25) mg/dL Glucose 167 H (74-99) mg/dL POC Glucose (mg/dL) 197 H (75-99) mg/dL Alkaline Phosphatase 363 H (38-126) U/L 12/19/18 12/19/18 12/19/18 Range/Units 07:50 11:49 16:34 WBC (3.8-10.6) k/uL Hgb (13.0-17.5) gm/dL Hct (39.0-53.0) % RDW (11.5-15.5) % Neutrophils # (1.3-7.7) k/uL Lymphocytes # (1.0-4.8) k/uL Chloride (98-107) mmol/L Carbon Dioxide (22-30) mmol/L BUN (9-20) mg/dL Creatinine (0.66-1.25) mg/dL Glucose (74-99) mg/dL POC Glucose (mg/dL) 170 H 142 H 172 H (75-99) mg/dL Alkaline Phosphatase (38-126) U/L Microbiology - Last 24 Hours (Table) 12/19/18 10:52 Sputum Culture - Preliminary Sputum Assessment and Plan Assessment: Community-acquired pneumonia versus gram-negative pneumonia Acute on chronic respiratory failure History of ARDS Possible developing pulmonary fibrosis Status post double renal and pancreatic transplant on immunosuppressive therapy Sleep disorder breathing and sleep apnea Diastolic heart failure chronic Hypertension hypertensive cardiovascular disease Plan: Agree with antibiotics Breathing treatments IV steroids can be switched to oral Continue home medication including immunosuppressive therapy Continue blood pressure medicine Reviewed computed tomography scan of the chest patient can be discharged home on oral antibiotics and oral tapering dose of prednisone would recommend a short- term follow-up with audit associate Time with Patient: Greater than 30
[2018-12-19 20:55] LABS: Glucose,Whole Blood 181 mg/dL (75-99)
[2018-12-19] MEDS: CALCITRIOL 0.25 MCG CAP PO SCH (21:09)
[2018-12-19] MEDS: MONTELUKAST 10 MG TAB PO SCH (21:09)
[2018-12-19] MEDS: TAMSULOSIN 0.4 MG CAP.ER.24H PO SCH (21:10)
--- NOTE | 2018-12-19 22:56 | PN ---
PROGRESS NOTE DATE OF SERVICE: 12/19/2018 REASON FOR FOLLOWUP: Pneumonia, possibly gram-negative. INTERVAL HISTORY: The patient is currently afebrile. The patient has been breathing comfortably. The patient's cough has decreased in intensity. It is mostly dry in nature. He has been complaining mostly of hiccups, but no nausea, no vomiting, no abdominal pain or diarrhea. PHYSICAL EXAMINATION: Blood pressure 163/75 with a pulse of 89, temperature 98.3. He is 98% on room air. General description is a middle-aged male up in the bed in no distress. RESPIRATORY SYSTEM: Unlabored breathing with decreased breath sounds at the base. No wheeze. HEART: S1, S2. Regular rate and rhythm. ABDOMEN: Soft. No tenderness. LABS: Hemoglobin is 11, white count 15.1. BUN of 56, creatinine 2.24 (did have significant jump up over the last 48 hours). DIAGNOSTIC IMPRESSION AND PLAN: Patient admitted to hospital with cough and sputum production in this patient who is immunocompromised with underlying renal transplant. The patient is currently covered with Zosyn; to continue while monitoring clinical course closely. Sputum cultures have been obtained. Those will be followed to narrow down his antibiotics. Continue with supportive care. MMODL / IJN: [id number] /
[2018-12-20] MEDS: PIPERACILLIN-TAZOBACTAM 3.375 GM in SODIUM CHLORIDE 0.9% 100 ML IVPB SCH ×3 (00:23→17:09)
[2018-12-20] MEDS: methylPREDNISolone SOD SUCCI 125 MG/2 ML VIAL IV SCH ×2 (00:23→08:16)
[2018-12-20] MEDS: SODIUM CHLORIDE 0.9% 1,000 ML IV SCH ×2 (04:52→10:53)
--- NOTE | 2018-12-20 08:00 | P.PN ---
Subjective Progress Note Date: 12/20/18 Principal diagnosis: Left-sided pneumonia, immunosuppressed status status post renal and pancreatic transplant, history of ARDS, sleep apnea, diastolic heart failure, and chronic, hypertension hypertensive cardiovascular disease 12/20/2018, patient seen eval reexamined during the rounds denies any chest pain or shortness of breath breathing is stable, patient blood glucose this morning is 170, complaining of constipation, I have reviewed the computed tomography scan finding with the patient and the family at length patient will after discharge follow-up with primary vp [facility] For repeat computed tomography scan and possible need for bronchoscopy if in groundglass attenuation is still present 12/19/2018, patient seen eval reexamined around off of oxygen ambulating in room his major concern is constipation computed tomography scan of the chest is reviewed findings discussed with patient and at length, there is patchy bilateral groundglass attenuation at the bases are seen 7 involvement of left- sided effusion is present as well Patient is seen and evaluated examined on fourth floor he is admitted into the hospital with 4 day history of increased cuff congestion shortness of breath with yellowish sputum production, patient sputum was initially white and into yellow dark in color for one day duration denies any chest pain denies any fever or chills, patient is a significant history of sleep disorder breathing and sleep apnea he uses CPAP machine regularly, is also status post double pancreas and kidney transplant back in 1988 and 2000 his other problems include hypertension dyslipidemia chronic diastolic heart failure as well, back in June and August 2018 he developed pneumonia course was complicated with development of ARDS but he was intubated successfully weaned and extubated afterwards the still have baseline shortness of breath on exertion did not use oxygen at home, in emergency room secondary to worsening of symptoms with imaging studies that shows low probability for PE on nuclear med studychest x- ray shows cardiomegaly with left basilar atelectasis or infiltrate and probably pleural effusion, mild central interstitial edemaWBC count of 10.6, d-dimer 0.91, creatinine 1.28 from a baseline of 1.21, PUBLIC 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 EDUCATOR proBNP of 4430, alkaline phosphatase elevated at 532, aALT AST elevated no lipase was done, urinalysis shows 2 wbc on examination, clinically patient has left coarse rhonchi, suspicious of pneumonic infiltrate, patient is chronically immunosuppressed with steroids and antirejection drugs, IV antibiotics started vancomycin and Zosyn, admit x-ray significant for left-sided atelectasis or pneumonia and probable small left effusion, VQ scan is low probability for PE Objective - Vital Signs Vital signs: Vital Signs Temp 98.9 F 12/20/18 01:00 Pulse 84 12/20/18 01:00 Resp 20 12/20/18 01:00 BP 171/86 12/20/18 01:00 Pulse Ox 97 12/20/18 01:00 Intake & Output 12/19/18 12/20/18 12/20/18 18:59 06:59 18:59 Intake Total 600 Balance 600 Weight 71.5 kg Intake: Intake, IV Titration 600 Amount Sodium Chloride 0.9% 1, 600 000 ml @ 75 mls/hr IV . [id number] [facility] Rx#:[id number] Other: Voiding Method Toilet Toilet # Voids 2 2 - Exam - Constitutional General appearance: average body habitus, cooperative, disheveled, mild distress - EENT Eyes: PERRLA, poor dentition, normal appearance Ears: bilateral: normal - Neck Neck: normal ROM Carotids: bilateral: upstroke normal Thyroid: bilateral: normal size - Respiratory Respiratory: bilateral: rales (More so on the left side compared right side), negative: CTA, diminished, dullness, rhonchi, wheezing, prolonged expiration - Cardiovascular Rhythm: regular Heart sounds: normal: S1, S2 - Gastrointestinal General gastrointestinal: distended, normal bowel sounds, soft - Integumentary Integumentary: decreased turgor, normal - Neurologic Neurologic: CNII-XII intact - Musculoskeletal Musculoskeletal: gait normal, generalized weakness, strength equal bilaterally - Psychiatric Psychiatric: A&O x's 3, appropriate affect, intact judgment & insight - Labs CBC & Chem 7: 12/19/18 07:50 12/19/18 07:50 Labs: Abnormal Lab Results - Last 24 Hours (Table) 12/19/18 12/19/18 12/19/18 Range/Units 07:50 07:50 11:49 WBC 15.1 H (3.8-10.6) k/uL Hgb 11.0 L (13.0-17.5) gm/dL Hct 35.5 L (39.0-53.0) % RDW 16.7 H (11.5-15.5) % Neutrophils # 14.5 H (1.3-7.7) k/uL Lymphocytes # 0.2 L (1.0-4.8) k/uL Chloride 113 H (98-107) mmol/L Carbon Dioxide 15 L (22-30) mmol/L BUN 56 H (9-20) mg/dL Creatinine 2.24 H (0.66-1.25) mg/dL Glucose 167 H (74-99) mg/dL POC Glucose (mg/dL) 142 H (75-99) mg/dL Alkaline Phosphatase 363 H (38-126) U/L 12/19/18 12/19/18 Range/Units 16:34 20:44 WBC (3.8-10.6) k/uL Hgb (13.0-17.5) gm/dL Hct (39.0-53.0) % RDW (11.5-15.5) % Neutrophils # (1.3-7.7) k/uL Lymphocytes # (1.0-4.8) k/uL Chloride (98-107) mmol/L Carbon Dioxide (22-30) mmol/L BUN (9-20) mg/dL Creatinine (0.66-1.25) mg/dL Glucose (74-99) mg/dL POC Glucose (mg/dL) 172 H 181 H (75-99) mg/dL Alkaline Phosphatase (38-126) U/L Microbiology - Last 24 Hours (Table) 12/19/18 10:52 Gram Stain - Preliminary Sputum Sputum Culture - Preliminary Assessment and Plan Assessment: Community-acquired pneumonia Acute on chronic respiratory failure History of ARDS Possible developing pulmonary fibrosis Status post double renal and pancreatic transplant on immunosuppressive therapy Sleep disorder breathing and sleep apnea Diastolic heart failure chronic Hypertension hypertensive cardiovascular disease Plan: Agree with antibiotics Breathing treatments IV steroids can be switched to oral Continue home medication including immunosuppressive therapy Continue blood pressure medicine Agree with just discharge planning and tapering dose of prednisone for 1 week to 10 days Follow-up CT as outpatient I'll of with primary vp [facility] about PFT and need for bronchoscopy Reviewed computed tomography scan of the chest patient can be discharged home on oral antibiotics and oral tapering dose of prednisone would recommend a short- term follow-up with vp [facility] Time with Patient: Greater than 30
[2018-12-20 08:08] LABS: Glucose,Whole Blood 175 mg/dL (75-99)
[2018-12-20] MEDS: FERROUS SULFATE 325 MG TAB PO SCH ×2 (08:11→22:07)
[2018-12-20] MEDS: TACROLIMUS 1 MG CAP PO SCH ×2 (08:11→22:09)
[2018-12-20] MEDS: BENZONATATE 100 MG CAP PO SCH ×3 (08:12→22:09)
[2018-12-20] MEDS: hydrALAZINE HCL 25 MG TAB PO SCH (08:12)
[2018-12-20] MEDS: PANTOPRAZOLE 40 MG TABLET PO SCH (08:12)
[2018-12-20] MEDS: LABETALOL 200 MG TAB PO SCH ×2 (08:13→22:08)
[2018-12-20] MEDS: APIXABAN 5 MG TAB PO SCH ×2 (08:13→22:07)
[2018-12-20] MEDS: DOCUSATE 100 MG CAP PO SCH ×2 (08:13→22:07)
[2018-12-20] MEDS: SODIUM BICARBONATE TAB 650 MG TAB PO SCH ×2 (08:13→22:08)
[2018-12-20] MEDS: MYCOPHENOLATE MOFETIL 500 MG TAB PO SCH ×2 (08:14→22:08)
[2018-12-20] MEDS: PSYLLIUM HUSK 100% 6 GM PACKET PO SCH ×2 (08:15→22:08)
[2018-12-20] MEDS: INSULIN ASPART (NovoLOG) 100 UNIT/ML VIAL SQ SCH ×4 (08:15→22:07)
[2018-12-20] MEDS: ALLOPURINOL 100 MG TAB PO SCH (08:17)
[2018-12-20] MEDS: IPRATROPIUM-ALBUTEROL 3 ML NEB INHALATION SCH ×4 (08:55→19:39)
[2018-12-20 09:15] LABS: Anisocytosis Slight; Basophils % (A) 0 %; Eosinophils % (A) 0 %; HCT 34.1 % (39.0-53.0); HGB 10.8 gm/dL (13.0-17.5); Hypochromasia Moderate; Lymphocytes # (A) 0.3 k/uL (1.0-4.8); Lymphocytes % (A) 3 %; MCH 25.8 pg (25.0-35.0); MCHC 31.7 g/dL (31.0-37.0); MCV 81.5 fL (80.0-100.0); Mean Platelet Volume 7.6; Monocytes # (A) 0.2 k/uL (0-1.0); Monocytes % (A) 2 %; Neutrophils # (A) 8.7 k/uL (1.3-7.7); Neutrophils % (A) 94 %; Platelet Count 286 k/uL (150-450); RBC 4.18 m/uL (4.30-5.90); RDW 16.5 % (11.5-15.5); WBC 9.3 k/uL (3.8-10.6)
[2018-12-20 09:19] LABS: Calcium 8.5 mg/dL (8.4-10.2); Potassium 4.5 mmol/L (3.5-5.1)
--- NOTE | 2018-12-20 09:27 | PN ---
PROGRESS NOTE Patient is seen for followup for posttransplant care. He was admitted to the hospital with shortness of breath. He is also complaining of constipation. The patient was started on IV fluids yesterday as his serum creatinine was up to 2.2 mg/dL yesterday. His baseline creatinine appears to be around 1.2-1.4. He did have acute kidney injury with creatinine at 1.8 in September of 2018. PHYSICAL EXAMINATION: On examination today, blood pressure was 171/86, heart rate 86 per minute. He is afebrile. Examination of the heart S1, S2. Examination of the lungs, bilateral breath sounds are heard. Abdomen is soft, nontender. Examination of lower extremities showed no significant edema. LABS: Not available from today. ASSESSMENT: 1. Acute kidney injury, most likely prerenal started on IV fluids yesterday. Check labs today. No nephrotoxic agents on board. 2. Chronic allograft nephropathy/CKD stage II. Baseline creatinine 1.2-1.4 mg/dL. 3. Status post simultaneous kidney pancreas transplant in 2001 and previous renal transplant in 1988 which was a living-relative allograft. 4. Non-gap metabolic acidosis secondary to worsening renal function. 5. Hypertension with chronic kidney disease. Continue current medications. If blood pressure remains elevated, we will increase medications. The labetalol can be increased further. PLAN: Check Prograf level. Continue IV fluids. Repeat labs today and add lactulose for constipation. MMODL / IJN: [id number] /
[2018-12-20] MEDS: PRAVASTATIN SODIUM 20 MG TAB PO SCH (10:19)
[2018-12-20] MEDS: LACTULOSE 20 GM/30 ML CUP PO SCH ×3 (10:19→22:09)
[2018-12-20 12:28] LABS: Glucose,Whole Blood 170 mg/dL (75-99)
--- NOTE | 2018-12-20 14:05 | PN ---
PROGRESS NOTE Mr. Byers is a 53-year-old male with a redo renal transplant and pancreatic transplant who presented with symptoms of dyspnea, nausea and vomiting. He had an episode of atrial fibrillation. He is feeling better this morning. His nausea has improved, but he continues to have constipation. He is ambulating without any difficulty. His energy has been stable. He continues to be at this time on allopurinol 100 mg daily, Eliquis 5 mg twice a day, hydralazine 50 mg 3 times a day, labetalol 200 mg twice a day. PHYSICAL EXAMINATION: VITAL SIGNS: Blood pressure 170/80 with a heart rate in the 80s. LUNGS: Clear. HEART: Regular rate and rhythm. S1, S2. No S3. No rub. ABDOMEN: Soft, nontender. EXTREMITIES: No edema. LAB DATA: Lab data revealed BUN and creatinine of 45 and 1.7, potassium 4.5, hemoglobin of 10.8. IMPRESSION: 1. Constipation and abdominal discomfort. Workup in progress. 2. Prior paroxysmal atrial fibrillation. Patient to be regular at this time. He has been anticoagulated. 3. Hypertension; remains elevated. 4. Status post renal transplant. 5. Symptoms of dyspnea and cough on presentation, possibly community-acquired pneumonia. RECOMMENDATIONS: From the cardiac standpoint, I agree with your plan of increasing the dose of hydralazine. Will follow his blood pressure. I will obtain a repeat EKG, continue to increase his activity, and depending on his progress, further recommendations will be made. MMODL / AHMETN: [id number] /
[2018-12-20] MEDS: predniSONE 20 MG TAB PO SCH (14:18)
--- NOTE | 2018-12-20 15:30 | P.PN ---
Subjective Progress Note Date: 12/20/18 53-year-old male one of Dr.Kut Dr. Winters/Melyssa Pressley regular basis who had double pancreas and kidney transplant 1988, 2000 diastolic CHF hypertension hyperlipidemia, and notable skin cancers,who apparently developed to have worsening shortness of breath and dyspnea for the last 1 day with yellowish productive sputum , without any fever no chills, increasing shortness of breath, persistence of cough. patient denies any PND, patient would have post to see vomiting, denies any leg swelling, patient has a nebulizer at home for which she doesn't need, he has CPAP machine at home for which he is compliant with his nasal CPAP use. Patient has pleurisy, dyspnea and exertion, no leg swelling or leg pain, and was subsequently seen in the emergency room. 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 Ann with plan to continue antibiotics, nebulizer treatments and IV steroids. CT of the chest revealed patchy groundglass areas seen bilaterally greater on the left which could be seen with alveolitis or p neumonitis. Small left pleural effusion. Less likely consideration would be mild interstitial venous congestion. Trace amount of fluid within the abdominal cavity with markedly atrophic kidneys correlate for chronic medical renal disease. Could not exclude mild wall thickening right: Which is only partially included on the exam. Cardiomegaly with dense coronary artery calcification and small pericardial effusion. Patient is followed by nephrology with plan to continue Prograf and CellCept and prednisone while on Solu-Medrol. Avoid nephrotoxic agents and hypotension. Dr. Carson discontinued vancomycin and plan to continue Zosyn. Patient states he is feeling a little bit better from yes terday and shortness of breath is decreased. He is coughing with a little sputum production and nursing will obtain culture cup for him. He is currently on Solu-Medrol 60 mg every 6 hours which will be decreased to every 8 hours. Patient has been afebrile, blood pressure 157/78, heart rate 98, pulse ox 97% on room air. Hydralazine increased 25 mg to 3 times daily and continue labetalol. is using CPAP at nighttime. WBC 15.1, hemoglobin 11.0, BUN 56 and creatinine 2.24. Blood sugars running 1 7197. Chloride is 113 and CO2 of 15. Patient is on oral sodium bicarb. 12/20 patient was examined bedside denies any cough shortness of breath or chest pain. He is saturating well on room air.on vital assessment he had a temp of 98.4 pulse 76 respiratory rate 16 blood pressure 170/89. Patient had no bowel movement for the past 5 days with no improvement to lactulose and suppositories. Will give tap water enema to the patient today. Hydralazine increased to 50 mg 3 times a day. Solu-Medrol switched to prednisone 40 mg by mouth daily will be titrated down to 5 mg. Patient to follow with pulmonary for bronchoscopy as outpatient if no improvement of the symptoms is seen. Review of systems Constitutional: Reports as per HPI, Reports anorexia, Reports chills, Reports lethargy, Reports malaise, Reports poor appetite, Denies chronic headaches, Denies chronic pain, Denies daytime sleepiness, Denies fatigue, Denies fever, Denies night sweats, Denies sweats, Denies weakness, Denies weight gain, Denies weight loss Ears, nose, mouth and throat: Reports as per HPI, Denies ant. neck pain, Denies bleeding gums, Denies dental pain, Denies dysphagia, Denies epistaxis, Denies headache, Denies hoarseness, Denies mouth pain, Denies nasal congestion, Denies nasal discharge, Denies neck fullness/pressure, Denies neck lump, Denies nose pain, Denies odynophagia, Denies post-nasal drip, Denies sinus pain, Denies sinus pressure, Denies swelling in mouth, Denies swelling in throat, Denies sore throat, Denies vertigo, Denies voice changes Respiratory: Reports as per HPI, Reports congestion, Reports cough, reports sputum production, reports shortness of breath, Reports sleep apnea Gastrointestinal: Reports as per HPI, Denies abdominal pain, Denies belching, Denies bloating, Denies BRBPR, Denies change in bowel habits, Denies coffee sylvia und emesis, Denies constipation, Denies diarrhea, Denies dyspepsia, Denies early satiety, Denies excessive gas, Denies heartburn, Denies hematemesis, Denies hematochezia, Denies indigestion, Denies jaundice, Denies lactose intolerance, Denies loss of appetite, Denies melena, Denies nausea, Denies vomitingpositive for constipation Genitourinary: Reports as per HPI Musculoskeletal: Reports as per HPI, Reports gait dysfunction, Reports limitation of motion, Reports myalgias Integumentary: Reports as per HPI Neurological: Reports as per HPI, Denies aphasia, Denies ataxia, Denies balance difficulties, Denies burning pain, Denies change in mentation, Denies change in smell/taste, Denies change in speech, Denies confusion, Denies convulsions, Denies double vision, Denies gait dysfunction, Denies head injury, Denies headaches, Denies hearing difficulties, Denies lack of coordination, Denies loss of vision, Denies memory loss, Denies migraines, Denies motor disturbance, Denies numbness, Denies paralysis, Denies paresthesias, Denies seizures, Denies sensory deficit, Denies spasticity, Denies syncope, Denies tic, Denies tingling, Denies transient paralysis, Denies tremors, Denies vertigo, Denies weakness, Denies visual changes Psychiatric: Reports as per HPI Endocrine: Reports as per HPI Hematologic/Lymphatic: Reports as per HPI Allergic/Immunologic: Reports as per HPI Objective - Vital Signs Vital signs: Vital Signs Temp 98.4 F 12/20/18 14:57 Pulse 76 12/20/18 15:16 Resp 16 12/20/18 14:57 BP 174/89 12/20/18 14:57 Pulse Ox 97 12/20/18 14:57 Intake & Output 12/19/18 12/20/18 12/20/18 18:59 06:59 18:59 Intake Total 600 750 Balance 600 750 Weight 71.5 kg Intake: Intake, IV Titration 600 Amount Sodium Chloride 0.9% 1, 600 000 ml @ 75 mls/hr IV . [id number] Rx#:[id number] Oral 750 Other: Voiding Method Toilet Toilet # Voids 2 2 2 - Exam - Constitutional General appearance: cooperative, no acute distress sitting up in bed - EENT Eyes: EOMI, PERRLA, dentition normal, normal appearance - Neck Neck: normal ROM - Respiratory Respiratory: left: rales, rhonchi, negative: CTA, diminished, prolonged expiration, prolonged inspiration - Cardiovascular Rhythm: regular Heart sounds: normal: S1, S2 - Gastrointestinal General gastrointestinal: normal bowel sounds, soft - Integumentary scar tissue with a flap ont he occiptal scalp without any open wounds, multiple skin scars no open wounds either Integumentary: normal - Neurologic Neurologic: CNII-XII intact - Musculoskeletal Musculoskeletal: gait normal, strength equal bilaterally - Psychiatric Psychiatric: A&O x's 3 - Labs CBC & Chem 7: 12/20/18 08:37 12/20/18 08:37 Labs: Abnormal Lab Results - Last 24 Hours (Table) 12/19/18 12/19/18 12/20/18 Range/Units 16:34 20:44 07:43 RBC (4.30-5.90) m/uL Hgb (13.0-17.5) gm/dL Hct (39.0-53.0) % RDW (11.5-15.5) % Neutrophils # (1.3-7.7) k/uL Lymphocytes # (1.0-4.8) k/uL Chloride (98-107) mmol/L Carbon Dioxide (22-30) mmol/L BUN (9-20) mg/dL Creatinine (0.66-1.25) mg/dL Glucose (74-99) mg/dL POC Glucose (mg/dL) 172 H 181 H 175 H (75-99) mg/dL 12/20/18 12/20/18 12/20/18 Range/Units 08:37 08:37 12:12 RBC 4.18 L (4.30-5.90) m/uL Hgb 10.8 L (13.0-17.5) gm/dL Hct 34.1 L (39.0-53.0) % RDW 16.5 H (11.5-15.5) % Neutrophils # 8.7 H (1.3-7.7) k/uL Lymphocytes # 0.3 L (1.0-4.8) k/uL Chloride 114 H (98-107) mmol/L Carbon Dioxide 15 L (22-30) mmol/L BUN 45 H (9-20) mg/dL Creatinine 1.70 H (0.66-1.25) mg/dL Glucose 169 H (74-99) mg/dL POC Glucose (mg/dL) 170 H (75-99) mg/dL Microbiology - Last 24 Hours (Table) 12/19/18 10:52 Gram Stain - Preliminary Sputum Sputum Culture - Preliminary Assessment and Plan Plan: 1. Bronchopneumonia suspected with immunocompromised suspect gram-negative as well as hospital acquired pneumonia undergoing antirejection drugs and chronic prednisone, patient was started on Zosyn, vancomycin discontinued. Legionella and Mycoplasma pending. Sputum culture no growth . IV Solu-Medrolswitched to prednisone. Bronchoscopy as outpatient Continue nebulizer treatments and Pulmicort. 2. COPD exacerbation, nebulized treatments and prednisone 3. Acute kidney injury with metabolic acidosis and CKD stage III consult Dr. Jo, renal transplant history. Continue antirejection medications. . Continue sodium bicarb 4. Diabetes mellitus type 1, currently not on any oral agents status post pancreatic transplantation 2000 5. Arrhythmia: Patient is doing very well on labetalol. Long-term anticoagulation with eliquis 5 mg twice a day 6. Double kidney and pancreas transplant: Remain on Prograf along with CellCept 7. History of obstructive sleep apnea: Has been on CPAP. 8. Hypertension: Remain on labetalol 800 mg twice a day continue Norvasc 5 mg twice a day as well. 9. Hyperlipidemia: Remain on pravastatin. 10. History of skin cancer: Has been seen dermatology regular basis and in treatment.with graft on the scalp 11. GI prophylaxis: Continue patient on Pepcid 20 mg daily. 12. DVT prophylaxis: Continue eliquis. CODE STATUS: Full code. Discharge plan: Most likely home on Saturday with homecare.
[2018-12-20] MEDS: hydrALAZINE HCL 50 MG TAB PO SCH ×2 (17:07→22:09)
[2018-12-20 17:14] LABS: Glucose,Whole Blood 124 mg/dL (75-99)
[2018-12-20 20:24] LABS: Glucose,Whole Blood 233 mg/dL (75-99)
[2018-12-20] MEDS: MONTELUKAST 10 MG TAB PO SCH (22:08)
[2018-12-20] MEDS: TAMSULOSIN 0.4 MG CAP.ER.24H PO SCH (22:09)
--- NOTE | 2018-12-20 22:14 | PN ---
PROGRESS NOTE DATE OF SERVICE: 12/20/2018. REASON FOR FOLLOWUP: Pneumonia in an immunocompromised patient. INTERVAL HISTORY: The patient is currently afebrile. The patient has been feeling better. Breathing comfortably. The patient's cough is improved. Has been complaining of being backed up and did not have any bowel movement for the last few days. Some hiccups but no vomiting. PHYSICAL EXAMINATION: Blood pressure 174/89 with a pulse of 73, temperature 98.4. He is 97% on room air. General description is a middle aged male up in the bed in no distress. Respiratory system: Unlabored breathing with decreased breath sounds at the bases. No wheeze. Heart S1, S2. Regular rate and rhythm. Abdomen soft. No tenderness. LABS: Hemoglobin is 10.2, white count 9.3 with a BUN of 45, creatinine 1.70. Sputum cultures currently pending. DIAGNOSTIC IMPRESSION AND PLAN: Patient admitted to the hospital with cough and evidence of pneumonia that has been immunocompromised. Patient's fever responded to Zosyn that is to continue while waiting for the sputum culture to finalize to determine his discharge antibiotics. Continue supportive care. MMODL / IJN: [id number] /
[2018-12-21 06:43] LABS: Anisocytosis Slight; Basophils % (A) 0 %; Eosinophils % (A) 0 %; HCT 32.7 % (39.0-53.0); HGB 10.4 gm/dL (13.0-17.5); Hypochromasia Slight; Lymphocytes # (A) 0.6 k/uL (1.0-4.8); Lymphocytes % (A) 7 %; MCH 25.4 pg (25.0-35.0); MCV 79.4 fL (80.0-100.0); Mean Platelet Volume 7.8; Monocytes # (A) 0.6 k/uL (0-1.0); Monocytes % (A) 7 %; Neutrophils # (A) 7.4 k/uL (1.3-7.7); Neutrophils % (A) 85 %; Platelet Count 266 k/uL (150-450); RBC 4.11 m/uL (4.30-5.90); RDW 16.7 % (11.5-15.5); WBC 8.7 k/uL (3.8-10.6)
[2018-12-21 06:56] LABS: Calcium 8.3 mg/dL (8.4-10.2); Potassium 4.1 mmol/L (3.5-5.1)
[2018-12-21 06:56] LABS: Glucose,Whole Blood 128 mg/dL (75-99)
[2018-12-21] MEDS: IPRATROPIUM-ALBUTEROL 3 ML NEB INHALATION SCH ×3 (08:15→16:21)
[2018-12-21 08:22] VITALS: RESP 16
[2018-12-21] MEDS: FERROUS SULFATE 325 MG TAB PO SCH (08:34)
[2018-12-21] MEDS: BENZONATATE 100 MG CAP PO SCH (08:34)
[2018-12-21] MEDS: TACROLIMUS 1 MG CAP PO SCH (08:35)
[2018-12-21] MEDS: predniSONE 20 MG TAB PO SCH (08:35)
[2018-12-21] MEDS: PANTOPRAZOLE 40 MG TABLET PO SCH (08:35)
[2018-12-21] MEDS: MYCOPHENOLATE MOFETIL 500 MG TAB PO SCH (08:35)
[2018-12-21] MEDS: hydrALAZINE HCL 50 MG TAB PO SCH (08:35)
[2018-12-21] MEDS: ALLOPURINOL 100 MG TAB PO SCH (08:35)
[2018-12-21] MEDS: APIXABAN 5 MG TAB PO SCH (08:35)
[2018-12-21] MEDS: SODIUM BICARBONATE TAB 650 MG TAB PO SCH (08:35)
[2018-12-21] MEDS: LABETALOL 200 MG TAB PO SCH (08:36)
[2018-12-21] MEDS: LACTULOSE 20 GM/30 ML CUP PO SCH (08:36)
[2018-12-21] MEDS: PSYLLIUM HUSK 100% 6 GM PACKET PO SCH (08:36)
[2018-12-21] MEDS: PIPERACILLIN-TAZOBACTAM 3.375 GM in SODIUM CHLORIDE 0.9% 100 ML IVPB SCH ×3 (08:36)
[2018-12-21] MEDS: DOCUSATE 100 MG CAP PO SCH (08:36)
[2018-12-21] MEDS: INSULIN ASPART (NovoLOG) 100 UNIT/ML VIAL SQ SCH ×2 (08:37→12:15)
[2018-12-21] MEDS ORDERED: amLODIPine 5 MG TAB PO SCH (11:00)
[2018-12-21 11:41] LABS: Glucose,Whole Blood 139 mg/dL (75-99)
[2018-12-21 11:48] VITALS: BMI 21.0
--- NOTE | 2018-12-21 12:14 | PN ---
PROGRESS NOTE Mr. Byers is a 53-year-old male with a history of renal and pancreatic transplant with paroxysmal atrial fibrillation, who presented with symptoms of dyspnea and had nausea and vomiting. He is feeling much better today. His breathing is better. He denies any symptoms of chest pain. He is back in sinus mechanism. He denies any dizziness or palpitation. He denies any nausea. He continues to be at this time on Eliquis 5 mg twice a day, hydralazine 50 mg 3 times a day, insulin, labetalol 200 mg twice a day. PHYSICAL EXAMINATION: Blood pressure running in the 160s with a heart rate in the 80s. LUNGS: Clear heart rate rhythm S1, S2. No S3. No rub. ABDOMEN: Soft, nontender. EXTREMITIES: No edema. LAB DATA: Lab data revealed BUN and creatinine 30 and 1.2. Potassium 4.1. IMPRESSION: 1. Pneumonia, treated. 2. Status post renal and pancreatic transplant. 3. Paroxysmal atrial fibrillation back in sinus mechanism. 4. Hypertension. 5. Diabetes mellitus. RECOMMENDATION: I will add to his regimen amlodipine to optimize his blood pressure control, continue the rest of his medical regimen and depending on his progress, further recommendation will be made. MMODL / IJN: [id number] /
--- NOTE | 2018-12-21 13:12 | P.DS ---
Providers Date of admission: 12/19/18 08:45 Attending physician: Miroslava Sanchez Consults: 12/17/18 13:09 Consult Physician Stat Consulting Provider: Roberth Ann Consult Reason/Comments: COPD exacerbation Do you want consulting provider notified?: Yes Consult Physician Stat Consulting Provider: [facility] Consult Reason/Comments: CHF exacerbation Do you want consulting provider notified?: Yes 12/18/18 12:01 Consult Physician Routine Consulting Provider: Eleonora Jo Consult Reason/Comments: renal transplant Do you want consulting provider notified?: Yes 12/18/18 13:15 Consult Physician Routine Consulting Provider: Mayur aCrson Consult Reason/Comments: bronchopneumonia, ummunosuppressed Do you want consulting provider notified?: Yes Primary care physician: Sujit Cartagena [facility] Course: 53-year-old male one of Dr.Kut Dr. Winters/Melyssa Pressley regular basis who had double pancreas and kidney transplant 1988, 2000 diastolic CHF hypertension hyperlipidemia, and notable skin cancers,who apparently developed to have worsening shortness of breath and dyspnea for the last 1 day with yellowish productive sputum , without any fever no chills, increasing shortness of breath, persistence of cough. patient denies any PND, patient would have post to see vomiting, denies any leg swelling, patient has a nebulizer at home for which she doesn't need, he has CPAP machine at home for which he is compliant with his nasal CPAP use. Patient has pleurisy, dyspnea and exertion, no leg swelling or leg pain, and was subsequently seen in the emergency room. 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 Ann with plan to continue antibiotics, nebulizer treatments and IV steroids. CT of the chest revealed patchy groundglass areas seen bilaterally greater on the left which could be seen with alveolitis or pneumonitis. Small left pleural effusion. Less likely consideration would be mild interstitial venous congestion. Trace amount of fluid within the abdominal cavity with markedly atrophic kidneys correlate for chronic medical renal disease. Could not exclude mild wall thickening right: Which is only partially included on the exam. Cardiomegaly with dense coronary artery calcification and small pericardial effusion. Patient is followed by nephrology with plan to continue Prograf and CellCept and prednisone while on Solu-Medrol. Avoid nephrotoxic agents and hypotension. Dr. Carson discontinued vancomycin and plan to continue Zosyn. Patient states he is feeling a little bit better from yesterday and shortness of breath is decreased. He is coughing with a little sputum production and nursing will obtain culture cup for him. He is currently on Solu-Medrol 60 mg every 6 hours which will be decreased to every 8 hours. Patient has been afebrile, blood pressure 157/78, heart rate 98, pulse ox 97% on room air. Hydralazine increased 25 mg to 3 times daily and continue labetalol. is using CPAP at nighttime. WBC 15.1, hemoglobin 11.0, BUN 56 and creatinine 2.24. Blood sugars running 1 7197. Chloride is 113 and CO2 of 15. Patient is on oral sodium bicarb. 12/20 patient was examined bedside denies any cough shortness of breath or chest pain. He is saturating well on room air.on vital assessment he had a temp of 98.4 pulse 76 respiratory rate 16 blood pressure 170/89. Patient had no bowel movement for the past 5 days with no improvement to lactulose and suppositories. Will give tap water enema to the patient today. Hydralazine increased to 50 mg 3 times a day. Solu-Medrol switched to prednisone 40 mg by mouth daily will be titrated down to 5 mg. Patient to follow with pulmonary for bronchoscopy as outpatient if no improvement of the symptoms is seen. 12/21 patient examined bedside denies any cough or shortness of breath. Patient is ambulating without any difficulty. Needs to follow with Dr. Pressley as outpatient. CHF was ruled out during this visit. Patient likely have pneumonitis from atypical pneumonia with the possibility of pulmonary fibrosis would need a low-dose computed tomography scan or bronchoscopy as outpatient Discharge diagnoses 1. Bronchopneumonia suspected with immunocompromised suspect gram-negative . 2. COPD exacerbation 3. Acute kidney injury with metabolic acidosis and CKD stage III 4. Diabetes mellitus type 1, currently not on any oral agents status post pancreatic transplantation 2000 5. Arrhythmia: 6. Double kidney and pancreas transplant: 7. History of obstructive sleep apnea: 8. Hypertension: 9. Hyperlipidemia 10. History of skin cancer CC a copy of discharge to Dr. Cartagena Disposition home with self-care Patient Condition at Discharge: Serious Plan - Discharge Summary Discharge Rx Participant: No New Discharge Prescriptions: New hydrALAZINE HCL [Apresoline] 50 mg PO TID #90 tab Polyethylene Glycol 3350 [Miralax] 17 gm PO DAILY PRN #527 gm PRN Reason: Constipation amLODIPine [Norvasc] 5 mg PO DAILY #30 tab predniSONE 10 mg PO DAILY #21 tab Sennosides [Senna] 8.6 mg PO DAILY PRN #30 tablet PRN Reason: Constipation Continue Pravastatin Sodium [Pravachol] 20 mg PO MOTUTHSA Sodium Bicarbonate Tab 1,300 mg PO BID Lansoprazole 30 mg PO DAILY Tacrolimus [Prograf] 1 mg PO BID Tamsulosin [Flomax] 0.4 mg PO HS Apixaban [Eliquis] 5 mg PO BID predniSONE 5 mg PO DAILY Ferrous Sulfate [Iron (65 MG Elemental)] 325 mg PO BID Acitretin 25 mg PO DAILY Calcitriol [Rocaltrol] 0.25 mcg PO MOTUWETHFR Allopurinol [Zyloprim] 100 mg PO DAILY Montelukast [Singulair] 10 mg PO HS Docusate [Colace] 100 mg PO BID Mycophenolate Mofetil [Cellcept] 1,000 mg PO BID Ergocalciferol (Vitamin D2) [Vitamin D2] 50,000 unit PO Q14D Discontinued Amoxic-Pot Clav 875-125Mg [Augmentin 875-125] 1 tab PO Q12HR Discharge Medication List Pravastatin Sodium [Pravachol] 20 mg PO MOTUTHSA 11/23/13 [History] Sodium Bicarbonate Tab 1,300 mg PO BID 11/23/13 [History] Lansoprazole 30 mg PO DAILY 07/14/18 [History] Tacrolimus [Prograf] 1 mg PO BID 07/14/18 [History] Apixaban [Eliquis] 5 mg PO BID 09/18/18 [History] Tamsulosin [Flomax] 0.4 mg PO HS 09/18/18 [History] predniSONE 5 mg PO DAILY 09/18/18 [History] Acitretin 25 mg PO DAILY 12/17/18 [History] Allopurinol [Zyloprim] 100 mg PO DAILY 12/17/18 [History] Calcitriol [Rocaltrol] 0.25 mcg PO MOTUWETHFR 12/17/18 [History] Docusate [Colace] 100 mg PO BID 12/17/18 [History] Ergocalciferol (Vitamin D2) [Vitamin D2] 50,000 unit PO Q14D 12/17/18 [History] Ferrous Sulfate [Iron (65 MG Elemental)] 325 mg PO BID 12/17/18 [History] Montelukast [Singulair] 10 mg PO HS 12/17/18 [History] Mycophenolate Mofetil [Cellcept] 1,000 mg PO BID 12/17/18 [History] Polyethylene Glycol 3350 [Miralax] 17 gm PO DAILY PRN #527 gm 12/21/18 [Rx] Sennosides [Senna] 8.6 mg PO DAILY PRN #30 tablet 12/21/18 [Rx] amLODIPine [Norvasc] 5 mg PO DAILY #30 tab 12/21/18 [Rx] hydrALAZINE HCL [Apresoline] 50 mg PO TID #90 tab 12/21/18 [Rx] predniSONE 10 mg PO DAILY #21 tab 12/21/18 [Rx] Follow up Appointment(s)/Referral(s): Eleonora Jo MD [STAFF PHYSICIAN] - 1 Week Sujit Cartagena MD [Primary Care Provider] - 1-2 days Activity/Diet/Wound Care/Special Instructions: BMP IN 4 DAYS-DR MOORE
[2018-12-21 15:09] VITALS: BP 116/71; PULSE 83; TEMP 99
--- NOTE | 2018-12-21 15:44 | PN ---
PROGRESS NOTE The patient is seen for followup for acute kidney injury and post transplant care. He is maintained on IV fluids. Patient feels well. He wants to go home. Renal function has improved with serum creatinine down to 1.2, which is baseline from peak of 2.24. PHYSICAL EXAMINATION: On examination today, blood pressure was 160/85, heart rate 83 per minute. Patient is afebrile. Examination of the heart S1, S2. Examination of the lungs, bilateral breath sounds are heard. Abdomen is soft, nontender. Examination of lower extremities shows no significant edema. 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 LABS: Show sodium 141, potassium 4.1, chloride 115, CO2 is 18, BUN 30, serum creatinine 1.2, hemoglobin 10.4 g/dL. ASSESSMENT: 1. Acute kidney injury, prerenal, currently improved with IV hydration. Patient is advised that he can be discharged. However, he will need to maintain adequate p.o. hydration and we will follow him up as outpatient. 2. Metabolic acidosis. Maintained on oral sodium bicarb, currently improved. Expect further improvement with improving renal function. 3. Status post living-related allograft previously and recent simultaneous kidney pancreas transplant. Continue current immunosuppressive medications. Prograf level was sent, however, I do not see it back yet. PLAN: Patient can be discharged. He should repeat labs in about 3-4 days post discharge and he will be seen in the office in about 1 week's time. POP / TORSTEN: [id number] /
--- NOTE | 2018-12-21 19:11 | PN ---
PROGRESS NOTE DATE OF SERVICE: 12/21/2018. REASON FOR FOLLOWUP: Pneumonia in an immunocompromised patient. INTERVAL HISTORY: The patient is currently afebrile. The patient has been breathing comfortably. Denies having any chest pain. No cough. No nausea, vomiting. No abdominal pain. No diarrhea. PHYSICAL EXAMINATION: Blood pressure 115/71 with a pulse of 83, temperature 99. He is 98% on room air. General description is a middle aged male up in the bed in no distress. Respiratory system: Unlabored breathing, clear to auscultation anteriorly. Heart S1, S2. Regular rate and rhythm. Abdomen soft, no tenderness. LABS: Hemoglobin is 10.4, white count 8.7, BUN of 30, creatinine 1.20. DIAGNOSTIC IMPRESSION AND PLAN: Patient admitted to the hospital with cough, fever and pneumonia. Sputum cultures currently pending. However, patient insisting on going home. Antibiotic will be switched to oral Ceftin 500 mg twice a day for about a week and close outpatient followup. The patient aware of the fact that cultures are not final and if any worsening symptoms to let us know right away. MMODL / IJN: [id number] /
[2018-12-22 03:54] LABS: Mycoplasma IgM Antibody 0.55 INDEX (<=0.90)
[2018-12-22 10:33] LABS: Hemoglobin A1C 5.7 % (4.0-6.0)
[2018-12-29] MEDS ORDERED: ERGOCALCIFEROL 50,000 UNIT CAP PO SCH (09:00)
== END 2018-12-21 16:24 | disposition home or self-care (01) | DRG 177 ==
LOC: EC 10:41 → 4SSUR 13:22 → OBSVTOIN 12-19 08:45
PROVIDERS: ADMIT Family Medicine; ATTEND Family Medicine
DX: J15.212 Pneumonia due to Methicillin resistant Staphylococcus aureus (principal); J96.20 Acute and chronic respiratory failure, unspecified whether with hypoxia or hypercapnia; E87.2 Acidosis; I13.0 Hypertensive heart and chronic kidney disease with heart failure and stage 1 through stage 4 chronic kidney disease, or unspecified chronic kidney disease; I31.3 Pericardial effusion (noninflammatory); I48.92 Unspecified atrial flutter; I50.32 Chronic diastolic (congestive) heart failure; J44.0 Chronic obstructive pulmonary disease with (acute) lower respiratory infection; J44.1 Chronic obstructive pulmonary disease with (acute) exacerbation; N17.9 Acute kidney failure, unspecified; Z94.83 Pancreas transplant status; Z94.0 Kidney transplant status; Z85.828 Personal history of other malignant neoplasm of skin; D63.1 Anemia in chronic kidney disease; E10.22 Type 1 diabetes mellitus with diabetic chronic kidney disease; E10.319 Type 1 diabetes mellitus with unspecified diabetic retinopathy without macular edema; E78.5 Hyperlipidemia, unspecified; F17.210 Nicotine dependence, cigarettes, uncomplicated; G47.33 Obstructive sleep apnea (adult) (pediatric); Z99.89 Dependence on other enabling machines and devices; I48.0 Paroxysmal atrial fibrillation; I25.10 Atherosclerotic heart disease of native coronary artery without angina pectoris; J84.10 Pulmonary fibrosis, unspecified; K59.00 Constipation, unspecified; M14.679 Charcot's joint, unspecified ankle and foot; N18.3 Chronic kidney disease, stage 3 (moderate); Z79.01 Long term (current) use of anticoagulants; Z79.4 Long term (current) use of insulin; Z79.899 Other long term (current) drug therapy; Z80.0 Family history of malignant neoplasm of digestive organs; Z83.3 Family history of diabetes mellitus; Z98.42 Cataract extraction status, left eye; Z98.41 Cataract extraction status, right eye; Z96.1 Presence of intraocular lens; Z96.652 Presence of left artificial knee joint; Z82.3 Family history of stroke
CPT/HCPCS: 36415; 71046; 71250; 78582; 80048; 80053; 80197; 80202; 81001; 82565; 83036; 83880; 84484; 85025; 85379; 85610; 85730; 86738; 87070; 87205; 87449; 93005; 94640; 96361; 96374; 96375; 99285

== ENCOUNTER 2019-03-09 04:10 | Emergency (ER) | payer BC ==
[2019-03-09 04:17] VITALS: TEMP 97.9
[2019-03-09] MEDS ORDERED: SODIUM CHLORIDE 0.9% 1,000 ML IV STA (04:23)
--- NOTE | 2019-03-09 04:23 | ED ---
Abdominal Pain HPI - General Source: patient, RN notes reviewed <Paco Villalobos - Last Filed: 03/09/19 10:28> - General Source: patient Mode of arrival: wheelchair Limitations: no limitations <Ifeoma Masterson - Last Filed: 03/10/19 03:58> - General Chief Complaint: Abdominal Pain Stated Complaint: Vomiting Time Seen by Provider: 03/09/19 04:22 - History of Present Illness Initial Comments: Patient is a pleasant 53-year-old male presenting to the emergency Department with complaints of nausea and vomiting. Patient was originally seen by Dr. Masterson however documentation addendum this time by myself secondary to history and physical not being done at this point. Onset of symptoms was just within the past day. Patient does have some mild discomfort of his abdomen. Dr. Masterson did provide pain medication and nausea medicine. She did do a CAT scan secondary to patient having some abdominal discomfort with history of transplant. Patient denies any diarrhea. Patient states abdominal discomfort is just mild. No fevers. Patient does see a photoengraving proofer apprentice, Dr. Adhikari who is familiar with his care. Patient requests discharge home at this point. Patient states he is feeling much better. (Paco Villalobos) Jordin is a 53-year-old gentleman with a past medical history of poorly controlled diabetes resulting in kidney failure. 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 Patient's been doing well for a number of years. Patient presents the emergency department this morning for evaluation of nausea, vomiting and diffuse crampy abdominal pain. Patient reports symptoms began throughout the night, has been persistent. Patient reports feeling nauseated waves of abdominal discomfort. Patient reports nonbloody nonbilious emesis, he has no history of bowel obstructions in the past. He reports normal bowel movement yesterday. No diarrhea. Patient believes this may be related to the food he ate for dinner last night. (Ifeoma Masterson) - Related Data Home Medications Medication Instructions Recorded Confirmed Pravastatin Sodium [Pravachol] 20 mg PO HS 11/23/13 03/09/19 Sodium Bicarbonate Tab 1,300 mg PO TID 11/23/13 03/09/19 Lansoprazole 30 mg PO DAILY 07/14/18 03/09/19 Tacrolimus [Prograf] 1 mg PO HS 07/14/18 03/09/19 Apixaban [Eliquis] 5 mg PO BID 09/18/18 03/09/19 Tamsulosin [Flomax] 0.4 mg PO HS 09/18/18 03/09/19 Acitretin 25 mg PO DAILY 12/17/18 03/09/19 Allopurinol [Zyloprim] 100 mg PO DAILY 12/17/18 03/09/19 Calcitriol [Rocaltrol] 0.25 mcg PO MOTUWETHFR 12/17/18 03/09/19 Ergocalciferol (Vitamin D2) 50,000 unit PO Q14D 12/17/18 03/09/19 [Vitamin D2] Ferrous Sulfate [Iron (65 MG 325 mg PO BID 12/17/18 03/09/19 Elemental)] Montelukast [Singulair] 10 mg PO HS 12/17/18 03/09/19 Mycophenolate Mofetil [Cellcept] 1,000 mg PO BID 12/17/18 03/09/19 Tacrolimus [Prograf] 1.5 mg PO QAM 03/09/19 03/09/19 predniSONE 5 mg PO DAILY 03/09/19 03/09/19 Previous Rx's Medication Instructions Recorded amLODIPine [Norvasc] 5 mg PO DAILY #30 tab 12/21/18 hydrALAZINE HCL [Apresoline] 50 mg PO TID #90 tab 12/21/18 Ondansetron Odt [Zofran Odt] 4 mg PO Q8HR PRN #10 tab 03/09/19 Allergies Allergy/AdvReac Type Severity Reaction Status Date / Time Iodine and Iodide Containing AdvReac HX OF Verified 03/09/19 07:58 Produc KIDNEY DISEASE Review of Systems ROS Other: All systems not noted in ROS Statement are negative. Gastrointestinal: Reports: as per HPI, nausea, vomiting Musculoskeletal: Denies: back pain <Paco Villalobos - Last Filed: 03/09/19 10:28> ROS Other: All systems not noted in ROS Statement are negative. <Ifeoma Masterson - Last Filed: 03/10/19 03:58> ROS Statement: Those systems with pertinent positive or pertinent negative responses have been documented in the HPI. Past Medical History Past Medical History: Cancer, Heart Failure, Hyperlipidemia, Hypertension, Osteoarthritis (OA), Renal Disease, Sleep Apnea/CPAP/BIPAP Additional Past Medical History / Comment(s): ARDS, hx of DM was tx for dm from age 9 to age 35(had pancreas transplant), uses cpap machine, basal and squamous cell skin cancer, hx rt elbow broken-(sx), charcots foot History of Any Multi-Drug Resistant Organisms: None Reported Past Surgical History: Hernia Repair, Joint Replacement Additional Past Surgical History / Comment(s): kidney and pancreas transplant , L knee replacment, rt elbow sx has 7 screws,cataracts removed-lens implants, laser eye sx for retinopathy, fernando foot sx(rt foot bone gravt and lt foot bone shaved), Past Anesthesia/Blood Transfusion Reactions: No Reported Reaction Past Psychological History: No Psychological Hx Reported Smoking Status: Never smoker Past Alcohol Use History: Occasional Past Drug Use History: None Reported - Past Family History Mother Family Medical History: Cancer, Diabetes Mellitus Additional Family Medical History / Comment(s): liver cancer Father Family Medical History: CVA/TIA Additional Family Medical History / Comment(s): was smoker had ctroke in his 30's <Ifeoma Masterson - Last Filed: 03/10/19 03:58> General Exam Limitations: no limitations General appearance: alert, in no apparent distress Head exam: Present: normocephalic Eye exam: Present: normal appearance, PERRL ENT exam: Present: normal oropharynx Neck exam: Present: normal inspection Respiratory exam: Present: normal lung sounds bilaterally Cardiovascular Exam: Present: regular rate, normal rhythm GI/Abdominal exam: Present: soft, normal bowel sounds. Absent: distended, tenderness Extremities exam: Present: normal inspection Neurological exam: Present: alert Psychiatric exam: Present: normal affect, normal mood Skin exam: Present: normal color <Paco Villalobos - Last Filed: 03/09/19 10:28> Limitations: no limitations <Ifeoma Masterson - Last Filed: 03/10/19 03:58> - General Exam Comments Initial Comments: Physical Exam GENERAL: Patient is well-developed and well-nourished. Patient is nontoxic and well- hydrated and is in no distress. HENT: Normocephalic, Atraumatic. EYES: PERRL, EOMI PULMONARY: Unlabored respirations. No audible rales rhonchi or wheezing was noted. CARDIOVASCULAR: There is a regular rate and rhythm without any murmurs gallops or rubs. ABDOMEN: Well-healed surgical incisions in the abdomen, midline surgical incision inferior to umbilicus does have a palpable easily reducible hernia Transmitted kidneys palpable in the flanks SKIN: Chronic rash on the face : Deferred NEUROLOGIC: Patient is alert and oriented x3. Moving all extremities spontaneously MUSCULOSKELETAL: Normal extremities with adequate strength and full range of motion. No lower extremity swelling or edema. No calf tenderness. PSYCHIATRIC: Normal psychiatric evaluation. (Ifeoma Masterson) Course Vital Signs 03/09/19 03/09/19 03/09/19 04:13 05:17 08:01 Temperature 97.9 F Pulse Rate 92 86 85 Respiratory 18 18 16 Rate Blood Pressure 174/97 176/92 175/95 O2 Sat by Pulse 98 97 96 Oximetry 03/09/19 10:59 Temperature Pulse Rate 90 Respiratory 16 Rate Blood Pressure 166/95 O2 Sat by Pulse 96 Oximetry Medical Decision Making - Lab Data Result diagrams: 03/09/19 04:27 03/09/19 04:27 - Radiology Data Radiology results: report reviewed (Computed tomography scan of the abdomen and pelvis does show right lower quadrant transplanted kidney with some increased surrounding inflammatory edema. There are other findings, please review report.) <Paco Villalobos - Last Filed: 03/09/19 10:28> - Lab Data Result diagrams: 03/09/19 04:27 03/09/19 04:27 <Ifeoma Masterson - Last Filed: 03/10/19 03:58> - Medical Decision Making Patient does request discharge. Patient is agreeable to discussion with his photoengraving proofer apprentice prior to this. Case was discussed in detail with Dr. Jo, covering for Dr. Adhikari who is recommending discharge and will follow up with patient. She was made aware of vital signs and presentation and lab reports as well as computed tomography scan reports. (Paco Villalobos) She was seen and evaluated upon arrival. Patient presented with nausea vomiting vague diffuse abdominal discomfort no diarrhea or constipation no history of bowel obstructions. Labs and KUB x-ray were ordered initially. Computed tomography scan was withheld due to the patient's history of kidney transplant we will wait renal function and see if patient response IV fluids and antiemetics. Patient's labs are baseline, patient was reevaluated after Zofran and fluids. Reported minimal improvement now has hiccups and some persistent nausea. Reglan and Benadryl were ordered and a computed tomography scan was ordered. Patient does have normal kidney function. He fluids ordered as well. Patient care was signed out to Dr. Villalobos at shift change who will follow-up on computed tomography scan and reevaluate patient. (Ifeoma Masterson) - Lab Data Lab Results 03/09/19 03/09/19 03/09/19 Range/Units 04:27 04:27 04:27 WBC 11.0 H (3.8-10.6) k/uL RBC 4.78 (4.30-5.90) m/uL Hgb 13.6 (13.0-17.5) gm/dL Hct 39.8 (39.0-53.0) % MCV 83.2 (80.0-100.0) fL MCH 28.4 (25.0-35.0) pg MCHC 34.2 (31.0-37.0) g/dL RDW 18.4 H (11.5-15.5) % Plt Count 232 (150-450) k/uL Neutrophils % 85 % Lymphocytes % 8 % Monocytes % 5 % Eosinophils % 1 % Basophils % 0 % Neutrophils # 9.4 H (1.3-7.7) k/uL Lymphocytes # 0.8 L (1.0-4.8) k/uL Monocytes # 0.5 (0-1.0) k/uL Eosinophils # 0.1 (0-0.7) k/uL Basophils # 0.0 (0-0.2) k/uL Anisocytosis Slight Sodium 139 (137-145) mmol/L Potassium 3.8 (3.5-5.1) mmol/L Chloride 107 (98-107) mmol/L Carbon Dioxide 19 L (22-30) mmol/L Anion Gap 13 mmol/L BUN 28 H (9-20) mg/dL Creatinine 1.29 H (0.66-1.25) mg/dL Est GFR (CKD-EPI)AfAm 72 (>60 ml/min/1.73 sqM) Est GFR (CKD-EPI)NonAf 62 (>60 ml/min/1.73 sqM) Glucose 117 H (74-99) mg/dL Calcium 9.7 (8.4-10.2) mg/dL Total Bilirubin 0.8 (0.2-1.3) mg/dL AST 20 (17-59) U/L ALT 22 (21-72) U/L Alkaline Phosphatase 134 H (38-126) U/L Total Protein 6.9 (6.3-8.2) g/dL Albumin 4.4 (3.5-5.0) g/dL Lipase 191 (23-300) U/L Urine Color Yellow Urine Appearance Clear (Clear) Urine pH 6.0 (5.0-8.0) Ur Specific [place] 1.013 (1.001-1.035) Urine Protein 1+ H (Negative) Urine Glucose (UA) Negative (Negative) Urine Ketones Negative (Negative) Urine Blood Small H (Negative) Urine Nitrite Negative (Negative) Urine Bilirubin Negative (Negative) Urine Urobilinogen <2.0 (<2.0) mg/dL Ur Leukocyte Esterase Large H (Negative) Urine RBC 1 (0-5) /hpf Urine WBC 5 (0-5) /hpf Ur Squamous Epith Cells 1 (0-4) /hpf Urine Mucus Rare H (None) /hpf Disposition Is patient prescribed a controlled substance at d/c from ED?: No Time of Disposition: 10:33 <Paco Villalobos - Last Filed: 03/09/19 10:28> Is patient prescribed a controlled substance at d/c from ED?: No <Ifeoma Masterson - Last Filed: 03/10/19 03:58> Clinical Impression: Vomiting Disposition: HOME SELF-CARE Condition: Stable Instructions (If sedation given, give patient instructions): Acute Nausea and Vomiting (ED) Additional Instructions: Please follow-up with your primary care physician as well as Dr. Adhikari or Dr. Jo in the next couple of days for recheck. Please also follow-up with her transplant surgeon this week. Return for uncontrolled vomiting, diarrhea, fevers, increased abdominal pain, worsening symptoms or any other concerns. Prescription for nausea medicine has been sent to [facility] on [address] Prescriptions: Ondansetron Odt [Zofran Odt] 4 mg PO Q8HR PRN #10 tab PRN Reason: Nausea Referrals: Sujit Cartagena MD [Primary Care Provider] - 1-2 days
[2019-03-09] MEDS ORDERED: ONDANSETRON 4 MG/2 ML VIAL IVP STA ×2 (04:57→09:14)
[2019-03-09] MEDS ORDERED: MORPHINE SULFATE 4 MG/ML SYRINGE IVP ONE (05:00)
[2019-03-09 05:01] LABS: Anisocytosis Slight; Basophils % (A) 0 %; Eosinophils # (A) 0.1 k/uL (0-0.7); Eosinophils % (A) 1 %; HCT 39.8 % (39.0-53.0); HGB 13.6 gm/dL (13.0-17.5); Lymphocytes # (A) 0.8 k/uL (1.0-4.8); Lymphocytes % (A) 8 %; MCH 28.4 pg (25.0-35.0); MCHC 34.2 g/dL (31.0-37.0); MCV 83.2 fL (80.0-100.0); Mean Platelet Volume 6.5; Monocytes # (A) 0.5 k/uL (0-1.0); Monocytes % (A) 5 %; Neutrophils # (A) 9.4 k/uL (1.3-7.7); Neutrophils % (A) 85 %; Platelet Count 232 k/uL (150-450); RBC 4.78 m/uL (4.30-5.90); RDW 18.4 % (11.5-15.5)
[2019-03-09 05:08] LABS: Appearance,Urine Clear (Clear); Bilirubin,Urine Negative (Negative); Blood,Urine Small (Negative); Color,Urine Yellow; Glucose,Urine (UA) Negative (Negative); Ketones,Urine Negative (Negative); Leukocyte Esterase,Urine Large (Negative); Mucus,Urine Rare /hpf; Nitrite,Urine Negative (Negative); Protein,Urine 1+ (Negative); RBC,Urine 1 /hpf (0-5); Specific Gravity,Urine 1.013 (1.001-1.035); Squamous Epithelial Cell,Urine 1 /hpf (0-4); Urobilinogen,Urine <2.0 mg/dL (<2.0); WBC,Urine 5 /hpf (0-5)
--- NOTE | 2019-03-09 05:12 | XR ---
EXAM: XR Abdomen, 2 Views CLINICAL HISTORY: Abdominal pain. Vomiting. TECHNIQUE: Frontal view of the abdomen/pelvis with upright view of the abdomen. COMPARISON: 10/01/2018. Mild to moderate quantity of stools noted. FINDINGS: Lower thorax: Cardiomegaly. Intraperitoneal space: No free air. Gastrointestinal tract: Nonspecific bowel gas pattern. No dilation. Bones/joints: Osteopenia. Dextro scoliosis of the visualized track lumbar spine Soft tissues: Surgical clips lower abdomen and the left lower quadrant. Other findings: No abnormal calcifications IMPRESSION: Nonspecific bowel gas pattern, similar to the previous study. No free air.
[2019-03-09 05:18] LABS: Albumin 4.4 g/dL (3.5-5.0); Calcium 9.7 mg/dL (8.4-10.2); Potassium 3.8 mmol/L (3.5-5.1); Total Bilirubin 0.8 mg/dL (0.2-1.3); Total Protein 6.9 g/dL (6.3-8.2)
[2019-03-09] MEDS ORDERED: METOCLOPRAMIDE 5 MG/ML 2 ML VIAL IVP STA (06:28)
[2019-03-09] MEDS ORDERED: diphenhydrAMINE 50 MG/ML 1 ML VIAL IVP STA (06:28)
[2019-03-09] MEDS ORDERED: SODIUM CHLORIDE 0.9% 1,000 ML IV SCH (06:30)
[2019-03-09 08:03] VITALS: RESP 16
--- NOTE | 2019-03-09 08:59 | CT ---
EXAMINATION TYPE: CT abdomen pelvis w con DATE OF EXAM: 03/09/2019 COMPARISON: 09/30/2018 HISTORY: 53-year-old male Vomiting and abdominal pain TECHNIQUE: Contiguous axial scanning of the abdomen and pelvis following administration of 100 mL Iso todd 300 IV contrast. Delayed images through the kidneys and coronal/sagittal reconstructions perform ed. CT DLP: 922.8 mGycm Automated exposure control for dose reduction was used. FINDINGS: Heart mildly enlarged with trace pericardial thickening. Some scattered strandy atelectasis in the lo wer lungs. Small hiatal hernia. No pleural effusion. No focal liver lesion or biliary ductal dilatation seen. The gallbladder borderline to mildly hydropic measuring 4.1 cm wide without surrounding inflammation. Portal venous system is patent. Adrenal glands within normal limits. Spleen borderline enlarged at 13.5 cm craniocaudal. The [place] pancreas is atrophied. The [place] kidneys are atrophic. There is a viable right lower quadrant transplant kidney with persistent and increasing surrounding p erinephric confluent edema. Small 8 mm cortical hypodensity within the transplant upper pole unchange d from 09/30/2018 suggesting a cyst. There is no hydronephrosis. There is satisfactory uptake and excretion from this right lower quadrant transplant. The origin of the right common iliac artery is not identified. The more distal right com mon iliac artery is visualized and has a supply to the transplanted right lower quadrant kidney. [place] splant right renal artery appears to opacify but the right common iliac artery is nonvisualized. Right renal vein is visualized heading inferiorly but its attachment to the venous drainage is clearl y identified. An aneurysmal venous structure is seen in the aortocaval retroperitoneum measuring 3.4 cm wide, uncha nged from 09/30/2018 but increased from 1220 08/06/2003 measured only 1.4 cm wide. 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 Bladder is markedly distended measuring up to 16.5 cm. Prostate gland mildly enlarged at 4.9 cm wide. No abnormal fluid collection in the pelvis or pelvic adenopathy. IMPRESSION: 1. RIGHT LOWER QUADRANT TRANSPLANT KIDNEY APPEARS VIABLE GIVEN ENHANCEMENT AND EXCRETION BUT HAS PERS ISTENT INCREASING SURROUNDING INFLAMMATORY CONFLUENT EDEMA. FURTHER SPECIALIST EVALUATION TO THE S TATUS OF THE PATIENT'S TRANSPLANT AND TO EXCLUDE INFECTION IS RECOMMENDED. 2. NONVISUALIZATION OF THE PROXIMAL RIGHT COMMON ILIAC ARTERY. MORE DISTAL RIGHT COMMON ILIAC ARTERY IS SEEN AND HAS ARTERIAL SUPPLY TO THE RIGHT LOWER QUADRANT TRANSPLANT. UNCLEAR IF THIS IS OPACIFYING VIA RETROGRADE, COLLATERAL FLOW. 3. THE RIGHT LOWER QUADRANT TRANSPLANT RENAL VEIN ANASTOMOSIS IS NOT CLEARLY IDENTIFIED. CORRELATE [facility] SURGICAL TECHNIQUE. 4. REDEMONSTRATED 3.5 CM WIDE VENOUS ANEURYSM IN THE AORTOCAVAL REGION, UNCHANGED FROM 09/30/2018 BUT MEASURING ONLY 1.4 CM BACK IN 2012. NOTE THAT THIS WAS MISTAKEN FOR AN ENLARGED LYMPH NODE ON THE NON CONTRAST 09/30/2018 CT. 5. BORDERLINE TO MILDLY HYDROPIC GALLBLADDER 4.1 CM WIDE MAY RELATE TO FASTING STATE. IF RIGHT UPPER QUADRANT PAIN OR CONCERN FOR EARLY ACUTE CHOLECYSTITIS, FOLLOW-UP ULTRASOUND OR HIDA SCAN. 6. MARKED URINARY BLADDER DISTENTION (UP TO 16.5 CM). CORRELATE TO ENSURE THIS REPRESENTS VOLUNTARY R ETENTION. 7. INCIDENTAL: ATROPHIC [place] KIDNEYS, CHRONICALLY HYDRONEPHROTIC AND FAILED LEFT LOWER QUADRANT TRA NSPLANT, AND REDEMONSTRATED LEFT LOWER QUADRANT PANCREAS TRANSPLANT.
[2019-03-09] MEDS ORDERED: FAMOTIDINE 20 MG/2 ML VIAL IV STA (09:14)
[2019-03-09 11:00] VITALS: BP 166/95; PULSE 90
== END 2019-03-09 11:27 | disposition home or self-care (01) ==
LOC: EC 04:10
DX: R11.2 Nausea with vomiting, unspecified (principal); R06.6 Hiccough; R21 Rash and other nonspecific skin eruption; K42.9 Umbilical hernia without obstruction or gangrene; R10.84 Generalized abdominal pain; I11.0 Hypertensive heart disease with heart failure; I50.9 Heart failure, unspecified; E78.5 Hyperlipidemia, unspecified; M19.90 Unspecified osteoarthritis, unspecified site; G47.30 Sleep apnea, unspecified; Z91.041 Radiographic dye allergy status; Z79.01 Long term (current) use of anticoagulants; Z79.52 Long term (current) use of systemic steroids; Z79.899 Other long term (current) drug therapy; Z85.828 Personal history of other malignant neoplasm of skin; Z96.652 Presence of left artificial knee joint; Z94.0 Kidney transplant status; Z94.83 Pancreas transplant status; Z98.890 Other specified postprocedural states; Z99.89 Dependence on other enabling machines and devices; Z80.0 Family history of malignant neoplasm of digestive organs
CPT/HCPCS: 36415; 80053; 83690; 85025; 81001; 74018; 74177; 99284; 96374; 96375 ×4; 96376; 96361 ×5; J2270; J1200; J2765; J2405; Q9967

== ENCOUNTER → 2019-06-16 | Outpatient (CLI) | payer BC ==
--- NOTE | 2019-06-16 12:08 | CT ---
EXAMINATION TYPE: CT soft tissue neck wo con DATE OF EXAM: 06/16/2019 HISTORY: Left sided lymph node enlargement. COMPARISON: NONE CT DLP: 309 mGycm. Automated Exposure Control for Dose Reduction was Utilized. TECHNIQUE: CT scan of the neck is performed without IV contrast, axial images are obtained, coronal and sagittal reformatted images are reviewed. FINDINGS: Lack of IV contrast is noted to lowers sensitivity for evaluation of mucosal lesions and ne ck adenopathy. Airway: Motion artifact degradation lung apices is present. Heterogeneous normal-sized thyroid. Parotid/submandibular glands: No gross abnormality seen. Carotid/Vascular Structures: Moderate to severe calcified eccentric plaque centered at the right sanchez tid bulb. Osseous Structures: No significant abnormality. Other: Prominent bilateral vessels or draining veins thought present. No definitive abnormal greater than 1 cm lymph nodes identified. Mild mucosal thickening right maxillary sinus. Completely opacified left maxillary sinus. Moderate mu cosal thickening and patchy opacification bilateral ethmoid sinuses. Mild to moderate mucosal thicken ing involving the sphenoid sinuses. IMPRESSION: As above. No obvious suspicious mass or adenopathy. Acute on chronic paranasal sinus dise ase is noted.
--- NOTE | 2019-06-16 12:08 | CT ---
EXAMINATION TYPE: CT brain wo con DATE OF EXAM: 06/16/2019 COMPARISON: 09/18/2018 HISTORY: Seizure, lymph node enlargement CT DLP: 1055.4 mGycm Automated exposure control for dose reduction was used. FINDINGS: The calvarium is intact. There is no intracranial hemorrhage. There is no intracranial mass or mass e ffect. No definite new intra-axial or extra-axial attenuation defect. Atherosclerotic changes are not ed within the bilateral distal vertebral arteries and bilateral distal ICA. The orbits are unremarkab le. Severe left maxillary chronic sinusitis and moderate ethmoidal chronic sinusitis suspected. The right mastoid sinus air cells and right middle ear cavity are clear. However, the left middle ear cavity is opacified as are the mastoid sinus air cells on the left. These findings can correlate wit h a clinical diagnosis of left otitis media or cholesteatoma. The fossa of Rosenmuller is negative bi laterally. There is mild generalized degenerative change with low-attenuation the white matter which is nonspeci fic but most likely in the basis of remote microvascular ischemia. IMPRESSION: 1. Degenerative and mild nonspecific white matter changes most typical remote microvascular ischemia. 2. Severe left mastoiditis with possible middle ear joint effusion or cholesteatoma. Correlate clinic ally. 3. Moderate to severe chronic left maxillary and ethmoidal sinusitis.
== END | disposition home or self-care (01) ==
LOC: RADCTMAIN 11:40
PROVIDERS: ATTEND Internal Medicine Nephrology
DX: G31.89 Other specified degenerative diseases of nervous system (principal); I67.82 Cerebral ischemia; I65.21 Occlusion and stenosis of right carotid artery; R59.9 Enlarged lymph nodes, unspecified; J32.4 Chronic pansinusitis
CPT/HCPCS: 70450; 70490

== ENCOUNTER → 2019-07-02 | Outpatient (CLI) | payer BC ==
--- NOTE | 2019-07-02 12:20 | XR ---
EXAMINATION TYPE: XR chest 2V DATE OF EXAM: 07/02/2019 COMPARISON: 12/17/2018 TECHNIQUE: PA and lateral views submitted. HISTORY: Neck palpable abnormality FINDINGS: The lungs are clear and there is no pneumothorax, pleural effusion, or focal pneumonia. Hypertrophi c change of the spine. Biapical pleural thickening. IMPRESSION: 1. No acute process.
== END | disposition home or self-care (01) ==
LOC: RAD 11:56
PROVIDERS: ATTEND Nurse Practitioner Family
DX: R59.1 Generalized enlarged lymph nodes (principal); N18.3 Chronic kidney disease, stage 3 (moderate)
CPT/HCPCS: 71046

== ENCOUNTER → 2019-07-17 | Outpatient (CLI) | payer BC ==
--- NOTE | 2019-07-17 14:01 | CT ---
EXAMINATION TYPE: CT chest wo con DATE OF EXAM: 07/17/2019 COMPARISON: 12/18/18 HISTORY: Lymphadenopathy CT DLP: 255.[address] of the chest was performed with lung and mediastinal window settings submitted. The la ck of contrast limits evaluation of the vascular, mediastinal and parenchymal structures including th e upper abdomen. LUNGS: The lungs are clear and free of infiltrate. No atelectasis. No pulmonary nodule or mass is de tected. No pleural effusion. No CT evidence of interstitial lung disease. MEDIASTINUM/DEMIAN: Thoracic aorta is of normal caliber with limited evaluation given lack of contrast . The heart is not enlarged. No evidence for mediastinal mass. No lymph nodes greater than 1cm. UPPER ABDOMEN: No significant abnormality is seen. OTHER: No significant other abnormality. IMPRESSION: 1. No evidence for adenopathy within the chest.
== END | disposition home or self-care (01) ==
LOC: RADCTMAIN 13:17
PROVIDERS: ATTEND Internal Medicine Nephrology
DX: R59.0 Localized enlarged lymph nodes (principal)
CPT/HCPCS: 71250

== ENCOUNTER 2019-11-14 20:18 | Inpatient (IN) | payer MEDICARE ==
[2019-11-14] MEDS ORDERED: ONDANSETRON 4 MG/2 ML VIAL IVP STA (21:07)
[2019-11-14] MEDS ORDERED: HYDROmorphone 1 MG/ML 1 ML SYRINGE IVP STA (21:07)
[2019-11-14] MEDS ORDERED: SODIUM CHLORIDE 0.9% 500 ML 500 ML IV STA (21:08)
[2019-11-14 21:28] LABS: Basophils % (A) 0 %; Eosinophils % (A) 0 %; HCT 35.4 % (39.0-53.0); HGB 11.9 gm/dL (13.0-17.5); Lymphocytes # (A) 0.5 k/uL (1.0-4.8); Lymphocytes % (A) 3 %; MCH 29.5 pg (25.0-35.0); MCHC 33.6 g/dL (31.0-37.0); MCV 87.7 fL (80.0-100.0); Mean Platelet Volume 6.8; Monocytes # (A) 0.8 k/uL (0-1.0); Monocytes % (A) 6 %; Neutrophils # (A) 12.5 k/uL (1.3-7.7); Neutrophils % (A) 90 %; Platelet Count 248 k/uL (150-450); RBC 4.04 m/uL (4.30-5.90)
[2019-11-14 21:38] LABS: ALT 13 U/L (4-49); AST 18 U/L (17-59); African American GFR (CKD) >90 (>60 ml/min/1.73 sqM); Alkaline Phosphatase 97 U/L (38-126); Anion Gap 8 mmol/L; Blood Urea Nitrogen 15 mg/dL (9-20); Calcium 9.1 mg/dL (8.4-10.2); Carbon Dioxide 24 mmol/L (22-30); Chloride 104 mmol/L (98-107); Glucose 152 mg/dL (74-99); Non-African American GFR(CKD) 88 (>60 ml/min/1.73 sqM); Potassium 3.5 mmol/L (3.5-5.1); Sodium 136 mmol/L (137-145); Total Bilirubin 0.8 mg/dL (0.2-1.3); Total Protein 6.5 g/dL (6.3-8.2)
[2019-11-14 21:44] LABS: Partial Thromboplastin Time 23.9 sec (22.0-30.0); Prothrombin Time 10.4 sec (9.0-12.0)
--- NOTE | 2019-11-14 22:50 | CT ---
EXAMINATION TYPE: CT abdomen pelvis wo con DATE OF EXAM: 11/14/2019 COMPARISON: 03/09/2019 HISTORY: Abdominal pain with nausea and vomiting. CT DLP: 474 mGycm Automated exposure control for dose reduction was used. There is mild subsegmental atelectasis left lung base. Heart is enlarged. There is no pleural effusio n. There is no pericardial effusion. Liver shows no focal defect. Spleen is intact. There is no evidence of pancreatic mass. Gallbladder i s large and measures 4 cm in diameter. The bile ducts are not dilated. There is dilated urinary bladder that measures 14 cm in length. There is large amount of fluid in the right side perirenal space. The right-sided transplant kidney shows perinephric edema. There is brian edly atrophic [place] kidneys. Transplant kidney shows no hydronephrosis. Transplant kidney is large a nd measures 12.7 x 6.4 cm. Right side retroperitoneal fluid extends into the left side retroperitoneu m and root of the mesentery. Pancreas appears essentially absent. There is no retroperitoneal adenopathy. Abdominal aorta is atheromatous. There is atherosclerotic vas cular calcification. There is markedly atrophic left side pelvic transplant kidney. There is no evidence of a bowel obstruction. I see no free air. There is no ascites. The lumbar spine is intact. Bony pelvis is intact. IMPRESSION: Extensive retroperitoneal fluid on the right side around the transplant kidney similar to old exam. T he retroperitoneal fluid extends across the midline which is a change compared to old exam. Transplan t kidney is large also similar to old exam. Clinical significance is not clear. No atrophy. Chronic r ejection is possible. Cardiomegaly. Atherosclerotic vascular disease. Chronically dilated urinary bladder similar to old ex am.
[2019-11-14] MEDS ORDERED: ONDANSETRON 4 MG/2 ML VIAL IVP PRN (23:18)
[2019-11-14] MEDS ORDERED: NALOXONE 0.4 MG/ML 1 ML VIAL IV PRN (23:18)
--- NOTE | 2019-11-14 23:23 | ED ---
Abdominal Pain HPI - General Chief Complaint: Abdominal Pain Stated Complaint: Abdominal pain Source: patient Mode of arrival: ambulatory Limitations: no limitations - History of Present Illness Initial Comments: The patient is a 54-year-old male with past medical history of diabetes mellitus, renal and pancreas transplant, gastroparesis who presents emergency room with reported left upper quadrant abdominal pain, nausea and vomiting. provides the history as the patient is actively vomiting. She states the patient does have history of this in the past. CT is been extensively evaluated for his complaints however they do not have a diagnosis. States that it is been over a year since the patient was last seen in the emergency room and for this. The patient has a history of remote renal and pancreatic transplant. [place] and the patient does not currently follow with anyone in regards to it. He does see Dr. Adhikari for his renal transplant. Patient on Cellcept and Tacro. He has been taking his medications as directed except for today for which she may have thrown up the medications. He reports to left upper quadrant abdominal pain without radiation. Denies hematemesis. No associated urinary or bowel complaints. states he normally gets a milligram of Dilaudid and 4 mg of Zofran for his symptoms and is usually okay for discharge home. Denies any fevers or chills. No back or flank pain. There are no bleeding, precipitating or modifying factors - Related Data Home Medications Medication Instructions Recorded Confirmed Pravastatin Sodium [Pravachol] 20 mg PO HS 11/23/13 11/15/19 Sodium Bicarbonate Tab 1,300 mg PO TID 11/23/13 11/15/19 Lansoprazole 30 mg PO DAILY 07/14/18 11/15/19 Tacrolimus [Prograf] 1 mg PO QAM 07/14/18 11/16/19 Apixaban [Eliquis] 5 mg PO BID 09/18/18 11/15/19 Tamsulosin [Flomax] 0.4 mg PO HS 09/18/18 11/15/19 Allopurinol [Zyloprim] 100 mg PO DAILY 12/17/18 11/15/19 Calcitriol [Rocaltrol] 0.25 mcg PO SUTUTHSA 12/17/18 11/15/19 Ferrous Sulfate [Iron (65 MG 325 mg PO BID 12/17/18 11/15/19 Elemental)] Montelukast [Singulair] 10 mg PO HS 12/17/18 11/15/19 Tacrolimus [Prograf] 1.5 mg PO HS 03/09/19 11/16/19 predniSONE 5 mg PO DAILY 03/09/19 11/15/19 Budesonide [Pulmicort] 0.5 mg INHALATION RT-BID PRN 11/15/19 11/15/19 Calcitriol 0.5 mcg PO MOWEFR 11/15/19 11/15/19 Ipratropium-Albuterol Nebulize 3 ml INHALATION RT-QID PRN 11/15/19 11/15/19 [Duoneb 0.5 mg-3 mg/3 ml Soln] Labetalol HCl 400 mg PO BID 11/15/19 11/15/19 Niacinamide 500 mg PO BID 11/15/19 11/15/19 amLODIPine [Norvasc] 5 mg PO BID 11/15/19 11/15/19 Mycophenolate Mofetil [Cellcept] 500 mg PO BID 11/16/19 11/16/19 Previous Rx's Medication Instructions Recorded Cefuroxime Axetil [Ceftin] 500 mg PO BID 3 Days #6 tab 11/17/19 Polyethylene Glycol 3350 [Miralax] 17 gm PO BID powd.pack 11/17/19 hydrALAZINE HCL [Apresoline] 50 mg PO TID #90 tab 11/17/19 Allergies Allergy/AdvReac Type Severity Reaction Status Date / Time Iodine and Iodide Containing AdvReac HX OF Verified 11/16/19 08:07 Produc KIDNEY DISEASE Review of Systems ROS Statement: Those systems with pertinent positive or pertinent negative responses have been documented in the HPI. ROS Other: All systems not noted in ROS Statement are negative. Past Medical History Past Medical History: Cancer, Heart Failure, Hyperlipidemia, Hypertension, Osteoarthritis (OA), Renal Disease, Sleep Apnea/CPAP/BIPAP Additional Past Medical History / Comment(s): ARDS, hx of DM was tx for dm from age 9 to age 35(had pancreas transplant), uses cpap machine, basal and squamous cell skin cancer, hx rt elbow broken-(sx), charcots foot History of Any Multi-Drug Resistant Organisms: None Reported Past Surgical History: Hernia Repair, Joint Replacement Additional Past Surgical History / Comment(s): kidney and pancreas transplant , L knee replacment, rt elbow sx has 7 screws,cataracts removed-lens implants, laser eye sx for retinopathy, fernando foot sx(rt foot bone gravt and lt foot bone sh aved), Past Anesthesia/Blood Transfusion Reactions: No Reported Reaction Past Psychological History: No Psychological Hx Reported Smoking Status: Never smoker Past Alcohol Use History: Occasional Past Drug Use History: None Reported - Past Family History Mother Family Medical History: Cancer, Diabetes Mellitus Additional Family Medical History / Comment(s): liver cancer Father Family Medical History: CVA/TIA Additional Family Medical History / Comment(s): was smoker had ctroke in his 30's General Exam Limitations: no limitations General appearance: alert, in no apparent distress Head exam: Present: atraumatic, normocephalic, other (bandage in place over occiput) Eye exam: Present: normal appearance, PERRL, EOMI. Absent: scleral icterus, conjunctival injection, periorbital swelling ENT exam: Present: normal exam, mucous membranes moist Neck exam: Present: normal inspection. Absent: tenderness, meningismus, lymphadenopathy Respiratory exam: Present: normal lung sounds bilaterally. Absent: respiratory distress, wheezes, rales, rhonchi, stridor Cardiovascular Exam: Present: regular rate, normal rhythm, normal heart sounds. Absent: systolic murmur, diastolic murmur, rubs, gallop, clicks GI/Abdominal exam: Present: soft, tenderness (mid epigastric), normal bowel sounds. Absent: distended, guarding, rebound, rigid Extremities exam: Present: normal inspection, full ROM, normal capillary refill. Absent: tenderness, pedal edema, joint swelling, calf tenderness Back exam: Present: normal inspection Neurological exam: Present: alert, oriented X3, CN II-XII intact Psychiatric exam: Present: normal affect, normal mood Skin exam: Present: warm, dry, intact, normal color. Absent: rash Course Vital Signs 11/14/19 11/14/19 11/14/19 20:36 22:00 23:00 Temperature 98.6 F Pulse Rate 82 75 79 Respiratory 20 16 16 Rate Blood Pressure 168/76 152/80 163/80 O2 Sat by Pulse 99 Oximetry 11/15/19 00:00 Temperature Pulse Rate 80 Respiratory 16 Rate Blood Pressure 169/88 O2 Sat by Pulse 96 Oximetry Medical Decision Making - Medical Decision Making Upon arrival the patient is placed into room 1. He is actively vomiting. Peripheral IV is established. Patient placed on continuous pulse ox and cardiac monitoring. 12-lead EKG performed. The patient is given a milligram of Dilaudid and 4 mg of Zofran. Laboratory studies were conducted the patient was sent for CT of his abdomen and pelvis. Imaging is performed without contrast due to his history of renal transplant. Laboratory studies demonstrated a white blood cell count of 14,000. Lipase is 1504. CT of the patient's abdomen and pelvis demonstrates extensive retroperitoneal fluid on the right side around the exam. Retroperitoneal fluid extends across the midline which is a change compared to old exam. Transplant kidney is also large similar to old exam. Pancreas absent. The patient is reevaluated and has had no further vomiting. Because of this elevated lipase with history of pancreas transplant recommend hospital admission for which patient did agree. States he has seen Dr. Lujan previously in the remote past. I called and discussed the case with Dr. Graham who did request additional laboratory studies which were ordered. I also ordered ultrasound of the right upper quadrant which demonstrates no acute findings. Patient was in agreement treatment plan he was transferred to floor in stable condition - Lab Data Result diagrams: 11/17/19 07:27 11/17/19 07:27 Lab Results 11/14/19 11/14/19 11/14/19 Range/Units 21:03 21:03 21:03 WBC 14.0 H (3.8-10.6) k/uL RBC 4.04 L (4.30-5.90) m/uL Hgb 11.9 L (13.0-17.5) gm/dL Hct 35.4 L (39.0-53.0) % MCV 87.7 (80.0-100.0) fL MCH 29.5 (25.0-35.0) pg MCHC 33.6 (31.0-37.0) g/dL RDW 14.0 (11.5-15.5) % Plt Count 248 (150-450) k/uL Neutrophils % 90 % Lymphocytes % 3 % Monocytes % 6 % Eosinophils % 0 % Basophils % 0 % Neutrophils # 12.5 H (1.3-7.7) k/uL Lymphocytes # 0.5 L (1.0-4.8) k/uL Monocytes # 0.8 (0-1.0) k/uL Eosinophils # 0.0 (0-0.7) k/uL Basophils # 0.0 (0-0.2) k/uL PT 10.4 (9.0-12.0) sec INR 1.0 (<1.2) APTT 23.9 (22.0-30.0) sec Sodium 136 L (137-145) mmol/L Potassium 3.5 (3.5-5.1) mmol/L Chloride 104 (98-107) mmol/L Carbon Dioxide 24 (22-30) mmol/L Anion Gap 8 mmol/L BUN 15 (9-20) mg/dL Creatinine 0.97 (0.66-1.25) mg/dL Est GFR (CKD-EPI)AfAm >90 (>60 ml/min/1.73 sqM) Est GFR (CKD-EPI)NonAf 88 (>60 ml/min/1.73 sqM) Glucose 152 H (74-99) mg/dL Plasma Lactic Acid Jose (0.7-2.0) mmol/L Calcium 9.1 (8.4-10.2) mg/dL Total Bilirubin 0.8 (0.2-1.3) mg/dL AST 18 (17-59) U/L ALT 13 (4-49) U/L Alkaline Phosphatase 97 (38-126) U/L Total Protein 6.5 (6.3-8.2) g/dL Albumin 4.0 (3.5-5.0) g/dL Lipase 1504 H (23-300) U/L Tacrolimus (5.0-20.0) ng/mL 11/14/19 11/14/19 Range/Units 21:03 21:03 WBC (3.8-10.6) k/uL RBC (4.30-5.90) m/uL Hgb (13.0-17.5) gm/dL Hct (39.0-53.0) % MCV (80.0-100.0) fL MCH (25.0-35.0) pg MCHC (31.0-37.0) g/dL RDW (11.5-15.5) % Plt Count (150-450) k/uL Neutrophils % % Lymphocytes % % Monocytes % % Eosinophils % % Basophils % % Neutrophils # (1.3-7.7) k/uL Lymphocytes # (1.0-4.8) k/uL Monocytes # (0-1.0) k/uL Eosinophils # (0-0.7) k/uL Basophils # (0-0.2) k/uL PT (9.0-12.0) sec INR (<1.2) APTT (22.0-30.0) sec Sodium (137-145) mmol/L Potassium (3.5-5.1) mmol/L Chloride (98-107) mmol/L Carbon Dioxide (22-30) mmol/L Anion Gap mmol/L BUN (9-20) mg/dL Creatinine (0.66-1.25) mg/dL Est GFR (CKD-EPI)AfAm (>60 ml/min/1.73 sqM) Est GFR (CKD-EPI)NonAf (>60 ml/min/1.73 sqM) Glucose (74-99) mg/dL Plasma Lactic Acid Jose 1.0 (0.7-2.0) mmol/L Calcium (8.4-10.2) mg/dL Total Bilirubin (0.2-1.3) mg/dL AST (17-59) U/L ALT (4-49) U/L Alkaline Phosphatase (38-126) U/L Total Protein (6.3-8.2) g/dL Albumin (3.5-5.0) g/dL Lipase (23-300) U/L Tacrolimus 6.6 (5.0-20.0) ng/mL - EKG Data EKG Comments: EKG demonstrates sinus rhythm with PACs. Rate of 76. NH interval 134. QRS 80. QTC of 488. QTC does not appear prolonged on visual exam. No acute ST segment elevations or depressions. Disposition Clinical Impression: Abdominal pain, Pancreas transplant status, Renal transplant, status post, Elevated lipase Disposition: ADMITTED IP TO THIS [facility] Condition: Good Is patient prescribed a controlled substance at d/c from ED?: No Decision to Admit Reason: Admit from EC Decision Date: 11/14/19 Decision Time: 23:23
[2019-11-14] MEDS: SODIUM CHLORIDE 0.9% 1,000 ML IV SCH (23:36)
--- NOTE | 2019-11-15 00:15 | US ---
EXAMINATION TYPE: US abdomen limited DATE OF EXAM: 11/14/2019 COMPARISON: CLINICAL HISTORY: RUQ pain, elevated lipase, pancreas tx hx. Patient states having a hx of 2 kidney t ransplants and one pancreatic transplant EXAM MEASUREMENTS: Liver Length: 15.6 cm Gallbladder Wall: 0.3 cm CBD: 0.5 cm IVC- 2.4 cm Pancreas: Obscured by bowel gas Liver: Appears coarse. Portal vein morocho appear echogenic. Gallbladder: Enlarged, length = 10.1 cm Evidence for sonographic Hopson's sign: neg CBD: wnl Right Kidney: Not visualized, atrophy? Transplant kidney seen in RLQ IMPRESSION: Gallbladder is large but probably within normal limits. No dilated ducts. Enlarged transplant kidney that measures 12.9 x 7.8 cm without hydronephrosis.
[2019-11-15 00:29] LABS: Glucose,Whole Blood 131 mg/dL (75-99)
[2019-11-15 00:29] LABS: Alcohol <10 mg/dL
[2019-11-15] MEDS: HYDROmorphone 1 MG/ML 1 ML SYRINGE IVP PRN ×2 (01:05→21:20)
[2019-11-15] MEDS ORDERED: ONDANSETRON 4 MG/2 ML VIAL IVP PRN (02:43)
[2019-11-15] MEDS ORDERED: ACETAMINOPHEN TAB 325 MG TAB PO PRN (02:44)
[2019-11-15] MEDS: MYCOPHENOLATE MOFETIL 500 MG TAB PO SCH ×3 (03:03→21:16)
[2019-11-15] MEDS: SODIUM BICARBONATE TAB 650 MG TAB PO SCH ×4 (03:03→21:16)
[2019-11-15] MEDS: APIXABAN 5 MG TAB PO SCH ×3 (03:03→21:16)
[2019-11-15 03:56] LABS: Cholesterol 129 mg/dL (<200); HDL Cholesterol 59 mg/dL (40-60); LDL Cholesterol,Calculated 54 mg/dL (0-99); Triglycerides 78 mg/dL (<150)
[2019-11-15 07:39] LABS: Basophils % (A) 0 %; Eosinophils % (A) 0 %; HCT 32.6 % (39.0-53.0); HGB 11.3 gm/dL (13.0-17.5); Lymphocytes # (A) 0.8 k/uL (1.0-4.8); Lymphocytes % (A) 5 %; MCH 30.6 pg (25.0-35.0); MCHC 34.8 g/dL (31.0-37.0); MCV 87.9 fL (80.0-100.0); Mean Platelet Volume 7.2; Monocytes # (A) 1.3 k/uL (0-1.0); Monocytes % (A) 8 %; Neutrophils # (A) 12.9 k/uL (1.3-7.7); Neutrophils % (A) 86 %; Platelet Count 217 k/uL (150-450); RBC 3.71 m/uL (4.30-5.90); WBC 15.1 k/uL (3.8-10.6)
[2019-11-15 07:46] LABS: African American GFR (CKD) >90 (>60 ml/min/1.73 sqM); Anion Gap 7 mmol/L; Blood Urea Nitrogen 15 mg/dL (9-20); Calcium 8.3 mg/dL (8.4-10.2); Carbon Dioxide 23 mmol/L (22-30); Chloride 107 mmol/L (98-107); Glucose 113 mg/dL (74-99); Non-African American GFR(CKD) 84 (>60 ml/min/1.73 sqM); Potassium 3.8 mmol/L (3.5-5.1); Sodium 137 mmol/L (137-145)
[2019-11-15] MEDS: amLODIPine 5 MG TAB PO SCH (07:52)
[2019-11-15] MEDS: ALLOPURINOL 100 MG TAB PO SCH (07:52)
[2019-11-15] MEDS: hydrALAZINE HCL 50 MG TAB PO SCH ×3 (07:52→21:16)
[2019-11-15] MEDS: FERROUS SULFATE 325 MG TAB PO SCH ×2 (07:52→21:16)
[2019-11-15] MEDS: PANTOPRAZOLE 40 MG TABLET PO SCH (07:52)
[2019-11-15] MEDS: predniSONE 5 MG TAB PO SCH (07:53)
[2019-11-15] MEDS: TACROLIMUS 0.5 MG CAP PO SCH (07:53)
--- NOTE | 2019-11-15 11:56 | CONS ---
CONSULTATION REASON FOR CONSULT: Posttransplant care. HISTORY OF PRESENT ILLNESS: The patient is a 54-year-old male with a history of living-related renal transplant in 1988 followed by a second transplant in 2000. His first transplant was from his mother and a second one from his brother. The patient has also had a pancreatic transplant. He was admitted to the hospital with complaints of abdominal pain, not feeling well. He had some diarrhea as well prior to admission. The patient's baseline creatinine has been about 1-1.2 mg/dL. He denied any fevers or chills. The patient's abdominal CT showed no major abnormalities. Patient was noted to have fluid around the transplant kidney area which was not new. He currently has had good urine output. Serum creatinine was 0.97 yesterday and today it is at 1.0. Patient is maintained on IV fluids. His lipase was elevated at 1504 on admission, currently at 788. PAST MEDICAL HISTORY: Living-related renal transplant, most recent in 2000, prior to that in 1988. Renal function at baseline, maintained on CellCept and Prograf. Chronic kidney disease mineral bone disorder. Past medical history also significant for hyperlipidemia, CHF, osteoarthritis, hypertension, obstructive sleep apnea, history of diabetes status post pancreas transplant, squamous cell skin cancer, Charcot foot. PAST SURGICAL HISTORY: Hernia repair, kidney transplant, pancreas transplant, laser surgeries, left knee arthroplasty, elbow surgery, cataract surgery. SOCIAL HISTORY: Negative for smoking, drug abuse or alcohol abuse. MEDICATIONS: Medications at home prior to admission included Pravachol, Prograf, lansoprazole, sodium bicarb, Eliquis, Flomax, zyloprim Rocaltrol, vitamin D2, Singulair, CellCept, Prograf, prednisone, Norvasc, hydralazine. ALLERGIES: IV DYE. PHYSICAL EXAMINATION: Patient is comfortable, awake. He is not in any acute distress. Blood pressure was 161/77, heart rate 93 per minute, patient is afebrile. Examination of the heart S1, S2. Examination of the lungs: Decreased breath sounds at bases. Abdomen is soft, nontender. Examination of lower extremities shows no evidence of edema. FIELD PRODUCER exam grossly intact. Patient has a recent incision in the upper part of his anterior chest wall near the clavicle for a skin graft on top of the head. LAB: Show sodium 137, potassium 3.8, chloride 107, CO2 is 23. BUN 15, creatinine 1.0, blood sugar was 131. ASSESSMENT: 1. Status post living related renal allograft 2000 with renal function at baseline. 2. History of previous transplant in 1988 from mother. 3. Acute pancreatitis. Alcohol level was not high. CAT scan does not show gallstone, although on ultrasound the gallbladder is enlarged. Lipase has improved. The patient is maintained on IV fluids. 4. Hypertension. Continue home antihypertensive medications. 5. Metabolic acidosis, maintained on oral sodium bicarb which I will continue. 6. Benign prostatic hypertrophy, maintained on Flomax. 7. Chronic kidney disease mineral bone disorder, currently on calcitriol. PLAN: Maintain IV fluids. Continue current immunosuppressive treatment. Check trough Prograf level in a.m. and repeat lipase. Patient is to be seen by GI as well. Thank you for this consultation. Will continue to follow the patient with you during his hospitalization. [id number] / AHMETN: [id number] /
[2019-11-15] MEDS: SODIUM CHLORIDE 0.9% 1,000 ML IV SCH (12:30)
[2019-11-15 12:37] LABS: Appearance,Urine Clear (Clear); Bilirubin,Urine Negative (Negative); Blood,Urine Moderate (Negative); Color,Urine Yellow; Glucose,Urine (UA) Negative (Negative); Ketones,Urine Negative (Negative); Leukocyte Esterase,Urine Large (Negative); Mucus,Urine Rare /hpf; Nitrite,Urine Negative (Negative); Protein,Urine 1+ (Negative); RBC,Urine >182 /hpf (0-5); Specific Gravity,Urine 1.014 (1.001-1.035); Urobilinogen,Urine <2.0 mg/dL (<2.0); WBC,Urine 65 /hpf (0-5)
[2019-11-15] MEDS: POLYETHYLENE GLYCOL 3350 17 GM POWD.PACK PO SCH ×2 (14:05→21:17)
--- NOTE | 2019-11-15 14:46 | P.HPIM ---
History of Present Illness H&P Date: 11/15/19 Chief Complaint: Abdominal pain nausea and vomiting 54-year-old male one of Dr.Kut Dr. 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 Patient still has a gallbladder during this evaluation. He presented with the above symptoms, to the emergency room Patient was subsequently seen in emergency room secondary to worsening of sym ptoms of abdominal pain, computed tomography scan of the abdomen and pelvis without contrast shows liver no deficit spleen normal no evidence of pancreatic mass Gallbladder is enlarged 4 cm common bile duct not dilated, no bowel obstruction, no free air, no ascites, no retroperitoneal adenopathy, transplant kidney is large 12.7 x 6.4 cm, right side. Paternal fluid extends to the left side. The per K[place], pancreas is essentially absent, the extensive retroperitoneal fluid on the right side in the Route transplant kidney similar to the old exam, the retroperitoneal fluid across midline which is a change from previous old, possible transfer plan chronic rejection is possible has chronically dilated urinary bladder Symmetrel exam, cardiomegaly with atherosclerotic vascular disease noted. Labs lipase 1500, creatinine 0.97, sodium 136, triglycerides 78 WBC count of 14, platelet count of 248, INR 1.0 glucose 152. Consult were made with GI and Dr. Jo for transplant kidney pancreas issues as well as acute pancreatitis new onset. Patient is not alcoholic, Review of Systems Constitutional: Reports as per HPI, Denies anorexia, Denies chills, Denies chronic headaches, Denies chronic pain, Denies daytime sleepiness, Denies fatigue, Denies fever, Denies lethargy, Denies malaise, Denies night sweats, Denies poor appetite, Denies sweats, Denies weakness, Denies weight gain, Denies weight loss Ears, nose, mouth and throat: Reports as per HPI, Denies ant. neck pain, Denies bleeding gums, Denies dental pain, Denies dysphagia, Denies epistaxis, Denies headache, Denies hoarseness, Denies mouth pain, Denies nasal congestion, Denies nasal discharge, Denies neck fullness/pressure, Denies neck lump, Denies nose pain, Denies odynophagia, Denies post-nasal drip, Denies sinus pain, Denies sinus pressure, Denies swelling in mouth, Denies swelling in throat, Denies sore throat, Denies vertigo, Denies voice changes Cardiovascular: Reports as per HPI Respiratory: Reports as per HPI, Denies congestion, Denies cough, Denies cough with sputum, Denies dyspnea, Denies excessive sputum, Denies hemoptysis, Denies home oxygen, Denies pain, Denies pain on inspiration, Denies pleurisy, Denies respiratory infections, Denies sleep apnea, Denies snoring, Denies wheezing Gastrointestinal: Reports as per HPI, Reports abdominal pain, Reports change in bowel habits, Reports early satiety, Reports indigestion, Reports loss of appetite, Reports nausea, Denies belching, Denies bloating, Denies BRBPR, Denies coffee ground emesis, Denies constipation, Denies diarrhea, Denies dyspepsia, Denies excessive gas, Denies heartburn, Denies hematemesis, Denies hematochezia, Denies jaundice, Denies lactose intolerance, Denies melena, Denies vomiting Genitourinary: Reports as per HPI Musculoskeletal: Reports as per HPI, Denies arm numbness/tingling, Denies atrophy, Denies fractures, Denies frequent falls, Denies gait dysfunction, Denies hot joints, Denies leg numbness/tingling, Denies limitation of motion, Denies loss of height, Denies low back pain, Denies morning stiffness, Denies muscle cramps, Denies muscle weakness, Denies myalgias, Denies neck pain, Denies neck stiffness, Denies prior amputations, Denies redness of joints, Denies shooting arm pain, Denies shooting leg pain Integumentary: Reports as per HPI, Reports lesions Neurological: Reports as per HPI Psychiatric: Reports as per HPI, Denies anhedonia, Denies anxiety, Denies anxiety attacks, Denies change in appetite, Denies change in libido, Denies change in sleep habits, Denies confusion, Denies depression, Denies difficulty concentrating, Denies disorientation, Denies hallucinations, Denies hopelessness, Denies hypersomnia, Denies insomnia, Denies irritability, Denies memory loss, Denies mood swings, Denies paranoia, Denies sadness/tearfulness, Denies sleep disturbances, Denies suicidal ideation Endocrine: Reports as per HPI Hematologic/Lymphatic: Reports as per HPI Allergic/Immunologic: Reports as per HPI, Denies allergic rhinitis, Denies anaphylaxis, Denies angioedema, Denies gluten intolerance, Denies persistent infections, Denies seasonal allergies, Denies urticaria, Denies wheezing Past Medical History Past Medical History: Cancer, Heart Failure, Hyperlipidemia, Hypertension, Osteoarthritis (OA), Renal Disease, Sleep Apnea/CPAP/BIPAP Additional Past Medical History / Comment(s): ARDS, hx of DM was tx for dm from age 9 to age 35(had pancreas transplant), uses cpap machine, basal and squamous cell skin cancer, hx rt elbow broken-(sx), charcots foot History of Any Multi-Drug Resistant Organisms: None Reported Past Surgical History: Hernia Repair, Joint Replacement Additional Past Surgical History / Comment(s): kidney and pancreas transplant , L knee replacment, rt elbow sx has 7 screws,cataracts removed-lens implants, la ser eye sx for retinopathy, fernando foot sx(rt foot bone gravt and lt foot bone shaved), Past Anesthesia/Blood Transfusion Reactions: No Reported Reaction Past Psychological History: No Psychological Hx Reported Smoking Status: Never smoker Past Alcohol Use History: Occasional Past Drug Use History: None Reported - Past Family History Mother Family Medical History: Cancer, Diabetes Mellitus Additional Family Medical History / Comment(s): liver cancer Father Family Medical History: CVA/TIA Additional Family Medical History / Comment(s): was smoker had ctroke in his 30's Medications and Allergies Home Medications Medication Instructions Recorded Confirmed Type Pravastatin Sodium [Pravachol] 20 mg PO HS 11/23/13 11/15/19 History Sodium Bicarbonate Tab 1,300 mg PO TID 11/23/13 11/15/19 History Lansoprazole 30 mg PO DAILY 07/14/18 11/15/19 History Tacrolimus [Prograf] 1 mg PO HS 07/14/18 11/15/19 History Apixaban [Eliquis] 5 mg PO BID 09/18/18 11/15/19 History Tamsulosin [Flomax] 0.4 mg PO HS 09/18/18 11/15/19 History Allopurinol [Zyloprim] 100 mg PO DAILY 12/17/18 11/15/19 History Calcitriol [Rocaltrol] 0.25 mcg PO SUTUTHSA 12/17/18 11/15/19 History Ferrous Sulfate [Iron (65 MG 325 mg PO BID 12/17/18 11/15/19 History Elemental)] Montelukast [Singulair] 10 mg PO HS 12/17/18 11/15/19 History Tacrolimus [Prograf] 1.5 mg PO QAM 03/09/19 11/15/19 History predniSONE 5 mg PO DAILY 03/09/19 11/15/19 History Budesonide [Pulmicort] 0.5 mg INHALATION RT-BID PRN 11/15/19 11/15/19 History Calcitriol 0.5 mcg PO MOWEFR 11/15/19 11/15/19 History Ipratropium-Albuterol Nebulize 3 ml INHALATION RT-QID PRN 11/15/19 11/15/19 History [Duoneb 0.5 mg-3 mg/3 ml Soln] Labetalol HCl 400 mg PO BID 11/15/19 11/15/19 History Mycophenolate Mofetil [Cellcept] 500 mg PO BID 11/15/19 11/15/19 History Niacinamide 500 mg PO BID 11/15/19 11/15/19 History amLODIPine [Norvasc] 5 mg PO BID 11/15/19 11/15/19 History hydrALAZINE HCL [Apresoline] 75 mg PO BID 11/15/19 11/15/19 History Allergies Allergy/AdvReac Type Severity Reaction Status Date / Time Iodine and Iodide Containing AdvReac HX OF Verified 11/15/19 12:04 Produc KIDNEY DISEASE Physical Exam Vitals: Vital Signs Temp Pulse Pulse Resp BP BP Pulse Ox 11/15/19 07:00 99.7 F H 93 17 161/77 90 L 11/15/19 00:25 98.1 F 85 20 182/85 97 11/15/19 00:00 80 16 169/88 96 11/14/19 23:00 79 16 163/80 11/14/19 22:00 75 16 152/80 11/14/19 20:36 98.6 F 82 20 168/76 99 Intake and Output 11/14/19 11/15/19 11/15/19 22:59 06:59 14:59 Intake Total 0 525 Balance 0 525 Intake: Intake, IV Titration 525 Amount Sodium Chloride 0.9% 1, 525 000 ml @ 75 mls/hr IV . [id number] [facility] Rx#:[id number] Oral 0 Other: Weight 70.307 kg 70.307 kg - Constitutional General appearance: average body habitus, cooperative, no acute distress - EENT Eyes: anicteric sclerae, EOMI, PERRLA, dentition normal, normal appearance ENT: NA/AT, normal oropharynx - Neck Neck: normal ROM - Respiratory Respiratory: bilateral: CTA, negative: diminished, dullness, rales - Cardiovascular Rhythm: regular Heart sounds: normal: S1, S2 Abnormal Heart Sounds: no systolic murmur, no diastolic murmur, no rub, no S3 Gallop, no S4 Gallop, no click, no other - Gastrointestinal General gastrointestinal: normal bowel sounds - Integumentary Integumentary: decreased turgor, normal - Musculoskeletal Musculoskeletal: gait normal, strength equal bilaterally - Psychiatric Psychiatric: A&O x's 3, appropriate affect Results CBC & Chem 7: 11/15/19 07:00 11/15/19 07:00 Labs: Abnormal Lab Results - Last 24 Hours (Table) 11/14/19 11/14/19 11/15/19 Range/Units 21:03 21:03 00:26 WBC 14.0 H (3.8-10.6) k/uL RBC 4.04 L (4.30-5.90) m/uL Hgb 11.9 L (13.0-17.5) gm/dL Hct 35.4 L (39.0-53.0) % Neutrophils # 12.5 H (1.3-7.7) k/uL Lymphocytes # 0.5 L (1.0-4.8) k/uL Monocytes # (0-1.0) k/uL Sodium 136 L (137-145) mmol/L Glucose 152 H (74-99) mg/dL POC Glucose (mg/dL) 131 H (75-99) mg/dL Calcium (8.4-10.2) mg/dL Lipase 1504 H (23-300) U/L Urine Protein (Negative) Urine Blood (Negative) Ur Leukocyte Esterase (Negative) Urine RBC (0-5) /hpf Urine WBC (0-5) /hpf Urine Mucus (None) /hpf 11/15/19 11/15/19 11/15/19 Range/Units 07:00 07:00 11:51 WBC 15.1 H (3.8-10.6) k/uL RBC 3.71 L (4.30-5.90) m/uL Hgb 11.3 L (13.0-17.5) gm/dL Hct 32.6 L (39.0-53.0) % Neutrophils # 12.9 H (1.3-7.7) k/uL Lymphocytes # 0.8 L (1.0-4.8) k/uL Monocytes # 1.3 H (0-1.0) k/uL Sodium (137-145) mmol/L Glucose 113 H (74-99) mg/dL POC Glucose (mg/dL) (75-99) mg/dL Calcium 8.3 L (8.4-10.2) mg/dL Lipase 788 H (23-300) U/L Urine Protein 1+ H (Negative) Urine Blood Moderate H (Negative) Ur Leukocyte Esterase Large H (Negative) Urine RBC >182 H (0-5) /hpf Urine WBC 65 H (0-5) /hpf Urine Mucus Rare H (None) /hpf Thrombosis Risk Factor Assmnt - DVT/VTE Prophylaxis DVT/VTE Prophylaxis: Mechanical Prophylaxis ordered, Low risk, early ambulation encouraged - Choose All That Apply Each Factor Represents 1 point: Age 41-60 years Thrombosis Risk Factor Assessment Total Risk Factor Score: 1 Thrombosis Risk Factor Assessment Level: Low Risk Assessment and Plan Plan: 1. Acute pancreatitis on prior transplanted pancreas, 2000. Unknown triggers at this time, alcohol negative, triglyceride normal, possibly related to transplant rejection, patient's statin is on hold, cannot rule out autoimmune pancreatitis, no common bile duct obstruction, no acute transaminitis with obstructive pattern is identified, GI consult with Dr. Garcia. Clear liquid diet monitor lipase 2. Multiple skin cancers with recent graft to scalp donor site is in the left chest wall, sutures will be taken out November 21 no identifiable infection noted, 3. 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 Jo, renal transplant history 4. Diabetes mellitus type 1, currently not on any oral agents status post pancreatic transplantation 2000 check A1c as well as Accu-Cheks 5 Arrhythmia: Patient is doing very well on labetalol.400 bid long-term anticoagulation with Eloquis 5 mg twice a day 6 Double kidney and pancreas transplant: Remain on Prograf along with CellCept and 5 mg of prednisone continue medication consult nephrology keep watching the kidney function with a current management. 7 History of obstructive sleep apnea: Has been on CPAP nasalon regular basis. 78Hypertension: Remain on norvasc hydralazine 8 Hyperlipidemia: Remain on pravastatin. 9 History of skin cancer: Has been seen dermatology regular basis and in treatment.with graft on the scalp 10 GI prophylaxis: Continue patient on Pepcid 20 mg daily. 11 DVT prophylaxis: Patient will be on heparin subcutaneous. CODE STATUS: Full code.
[2019-11-15] MEDS: MONTELUKAST 10 MG TAB PO SCH (21:16)
[2019-11-15] MEDS: TAMSULOSIN 0.4 MG CAP.ER.24H PO SCH (21:16)
[2019-11-15] MEDS: TACROLIMUS 1 MG CAP PO SCH (21:16)
[2019-11-15] MEDS: MELATONIN 3 MG TABLET PO SCH (21:17)
--- NOTE | 2019-11-15 22:42 | P.CONS ---
History of Present Illness - Reason for Consult Consult date: 11/15/19 Acute pancreatitis Requesting physician: Miroslava Sanchez - Chief Complaint Abdominal pain, nausea and vomiting - History of Present Illness 54-year-old male with multiple medical comorbidities including type 1 diabetes mellitus since the age of 9 status post pancreas transplant currently not requiring insulin or oral hypoglycemic medications, end-stage renal disease secondary to diabetic nephropathy status post kidney transplant twice in the past with the last in 2000, diastolic CHF, hyperlipidemia, hypertension and skin cancer who presented to the hospital with complaints of abdominal pain and nausea. He reports abdominal pain predominantly in the left upper quadrant and periumbilical area of his abdomen. He describes as sharp in nature and present for 3 days. Denies any radiation of the pain. He had associated nausea and vomiting prior to presentation. He denies any diarrhea, blood per rectum or melanotic stool but does report some constipation. Last episode of vomiting was yesterday. Denies any history of peptic ulcer disease. Patient denies any p rior history of pancreatitis and has been doing well with his transplanted pancreas since 2000. He denies any excessive alcohol abuse or new medications. Currently lying in bed he is reporting improvement in his symptoms. On presentation to the hospital he was found to have ultrasound which was e ssentially negative with no gallbladder dysfunction and a slightly distended gallbladder with no intrahepatic biliary dilatation and a transplanted kidney noted. Laboratory evaluation significant for a lipase of 1554 on presentation currently 788 with a total bilirubin 0.8, alkaline phosphatase 97, AST 18 and ALT 13 with a WBC 15.1 and a hemoglobin of 11.3. Review of Systems REVIEW OF SYSTEMS: CONSTITUTIONAL: Denies any fevers, chills, weight change or fatigue. CARDIOVASCULAR: Denies any chest pain, palpitations high or low blood pressures RESPIRATORY: Denies any shortness of breath, hemoptysis or cough. GENITOURINARY: No dysuria or hematuria. MUSCULOSKELETAL: No weakness reported. SKIN: Denies any new rashes or lesions, jaundice or pallor, recently underwent treatment of cancer on his had. PSYCHIATRIC: Denies any depression or anxiety. NEUROLOGY: Denies headache, denies any new focal deficits. EARS/NOSE/THROAT: No recent hearing change, congestion, nasal discharge or sore throat. EYES: No pain in eyes, discharge or change in vision. GASTROINTESTINAL: As per HPI. Past Medical History Past Medical History: Cancer, Heart Failure, Hyperlipidemia, Hypertension, Osteoarthritis (OA), Renal Disease, Sleep Apnea/CPAP/BIPAP Additional Past Medical History / Comment(s): ARDS, hx of DM was tx for dm from age 9 to age 35(had pancreas transplant), uses cpap machine, basal and squamous cell skin cancer, hx rt elbow broken-(sx), charcots foot History of Any Multi-Drug Resistant Organisms: None Reported Past Surgical History: Hernia Repair, Joint Replacement Additional Past Surgical History / Comment(s): kidney and pancreas transplant , L knee replacment, rt elbow sx has 7 screws,cataracts removed-lens implants, laser eye sx for retinopathy, fernando foot sx(rt foot bone gravt and lt foot bone shaved), Past Anesthesia/Blood Transfusion Reactions: No Reported Reaction Past Psychological History: No Psychological Hx Reported Smoking Status: Never smoker Past Alcohol Use History: Occasional Past Drug Use History: None Reported - Past Family History Mother Family Medical History: Cancer, Diabetes Mellitus Additional Family Medical History / Comment(s): liver cancer Father Family Medical History: CVA/TIA Additional Family Medical History / Comment(s): was smoker had ctroke in his 30's Medications and Allergies Home Medications Medication Instructions Recorded Confirmed Type Pravastatin Sodium [Pravachol] 20 mg PO HS 11/23/13 11/15/19 History Sodium Bicarbonate Tab 1,300 mg PO TID 11/23/13 11/15/19 History Lansoprazole 30 mg PO DAILY 07/14/18 11/15/19 History Tacrolimus [Prograf] 1 mg PO HS 07/14/18 11/15/19 History Apixaban [Eliquis] 5 mg PO BID 09/18/18 11/15/19 History Tamsulosin [Flomax] 0.4 mg PO HS 09/18/18 11/15/19 History Allopurinol [Zyloprim] 100 mg PO DAILY 12/17/18 11/15/19 History Calcitriol [Rocaltrol] 0.25 mcg PO SUTUTHSA 12/17/18 11/15/19 History Ferrous Sulfate [Iron (65 MG 325 mg PO BID 12/17/18 11/15/19 History Elemental)] Montelukast [Singulair] 10 mg PO HS 12/17/18 11/15/19 History Tacrolimus [Prograf] 1.5 mg PO QAM 03/09/19 11/15/19 History predniSONE 5 mg PO DAILY 03/09/19 11/15/19 History Budesonide [Pulmicort] 0.5 mg INHALATION RT-BID PRN 11/15/19 11/15/19 History Calcitriol 0.5 mcg PO MOWEFR 11/15/19 11/15/19 History Ipratropium-Albuterol Nebulize 3 ml INHALATION RT-QID PRN 11/15/19 11/15/19 History [Duoneb 0.5 mg-3 mg/3 ml Soln] Labetalol HCl 400 mg PO BID 11/15/19 11/15/19 History Mycophenolate Mofetil [Cellcept] 500 mg PO BID 11/15/19 11/15/19 History Niacinamide 500 mg PO BID 11/15/19 11/15/19 History amLODIPine [Norvasc] 5 mg PO BID 11/15/19 11/15/19 History hydrALAZINE HCL [Apresoline] 75 mg PO BID 11/15/19 11/15/19 History Allergies Allergy/AdvReac Type Severity Reaction Status Date / Time Iodine and Iodide Containing AdvReac HX OF Verified 11/15/19 12:04 Produc KIDNEY DISEASE Physical Exam Vitals: Vital Signs Temp Pulse Pulse Resp BP BP Pulse Ox 11/15/19 07:00 99.7 F H 93 17 161/77 90 L 11/15/19 00:25 98.1 F 85 20 182/85 97 11/15/19 00:00 80 16 169/88 96 11/14/19 23:00 79 16 163/80 11/14/19 22:00 75 16 152/80 11/14/19 20:36 98.6 F 82 20 168/76 99 Intake and Output 11/14/19 11/15/19 11/15/19 22:59 06:59 14:59 Intake Total 0 Balance 0 Intake: Oral 0 Other: Weight 70.307 kg 70.307 kg On physical examination, patient appears comfortable in no apparent distress. HEAD: Normocephalic, status post surgical intervention for a malignancy of the skin on his scalp EYES: No scleral icterus. No conjunctival injection. MOUTH: No lesions, tongue midline. NECK: Trachea midline, no gross abnormalities. CHEST: Clear to auscultation with no wheezing or rhonchi appreciated, well- healed wound on right upper chest where skin graft was removed. HEART: S1-S2 appreciated. ABDOMEN: Soft, obese, mildly tender with well-healed midline scar. Bowel sounds are positive. No organomegaly. No guarding or rigidity. EXTREMITIES: No pedal edema. SKIN: No rashes, no jaundice, currently covered skin graft on had. NEUROLOGIC: Alert and oriented x3. No focal deficits. Results CBC & Chem 7: 11/15/19 07:00 11/15/19 07:00 Labs: Abnormal Lab Results - Last 24 Hours (Table) 11/14/19 11/14/19 11/15/19 Range/Units 21:03 21:03 00:26 WBC 14.0 H (3.8-10.6) k/uL RBC 4.04 L (4.30-5.90) m/uL Hgb 11.9 L (13.0-17.5) gm/dL Hct 35.4 L (39.0-53.0) % Neutrophils # 12.5 H (1.3-7.7) k/uL Lymphocytes # 0.5 L (1.0-4.8) k/uL Monocytes # (0-1.0) k/uL Sodium 136 L (137-145) mmol/L Glucose 152 H (74-99) mg/dL POC Glucose (mg/dL) 131 H (75-99) mg/dL Calcium (8.4-10.2) mg/dL Lipase 1504 H (23-300) U/L 11/15/19 11/15/19 Range/Units 07:00 07:00 WBC 15.1 H (3.8-10.6) k/uL RBC 3.71 L (4.30-5.90) m/uL Hgb 11.3 L (13.0-17.5) gm/dL Hct 32.6 L (39.0-53.0) % Neutrophils # 12.9 H (1.3-7.7) k/uL Lymphocytes # 0.8 L (1.0-4.8) k/uL Monocytes # 1.3 H (0-1.0) k/uL Sodium (137-145) mmol/L Glucose 113 H (74-99) mg/dL POC Glucose (mg/dL) (75-99) mg/dL Calcium 8.3 L (8.4-10.2) mg/dL Lipase 788 H (23-300) U/L US - abdomen: report reviewed (Ultrasound was transplanted kidney noted.) Assessment and Plan (1) Acute pancreatitis Narrative/Plan: 54-year-old male with multiple medical comorbidities including prior transplants of both the kidney on 2 occasions secondary to diabetic nephropathy and of the pancreas secondary to a history of diabetes mellitus and CHF 11 with his last transplants in 2000 who presented with abdominal pain, nausea and vomiting found to have elevation in his lipase with associated abdominal pain diagnosis is of acute uncomplicated pancreatitis with no acute abnormality seen on CT or ultrasound of the abdomen. Liver enzymes within normal limits. Denies any alcohol abuse. No new medications. Current Visit: Yes Status: Acute Code(s): K85.90 - ACUTE PANCREATITIS WITHOUT NECROSIS OR INFECTION, UNSP SNOMED Code(s): 625272201 (2) Abdominal pain Current Visit: Yes Status: Acute Code(s): R10.9 - UNSPECIFIED ABDOMINAL PAIN SNOMED Code(s): 34372555 (3) Elevated lipase Current Visit: Yes Status: Acute Code(s): R74.8 - ABNORMAL LEVELS OF OTHER SERUM ENZYMES SNOMED Code(s): 534813995 (4) Pancreas transplant status Current Visit: Yes Status: Acute Code(s): Z94.83 - PANCREAS TRANSPLANT STATUS SNOMED Code(s): 443549338 Plan: Supportive care Clear liquid diet, advance as tolerated Continue IV fluid hydration Continue pain control Continue to monitor BMP, CBC Patient reporting constipation and MiraLAX therapy has been added Thank you for allowing us to participate in the care of the patient we will continue to follow
[2019-11-16 04:54] LABS: Amphetamine Screen,Urine Not Detected (NotDetected); Barbiturate Screen,Urine Not Detected (NotDetected); Benzodiazepines Screen,Urine Not Detected (NotDetected); Cocaine Screen,Urine Not Detected (NotDetected); Methadone Screen, Urine Not Detected (NotDetected); Opiate Screen,Urine Detected (NotDetected); Oxycodone Screen, Urine Detected (NotDetected); Phencyclidine Screen,Urine Not Detected (NotDetected); Tricyclic Antidepressant,Urine Not Detected (NotDetected); Urn Cannabinoid Scrn Not Detected (NotDetected)
[2019-11-16] MEDS: SODIUM CHLORIDE 0.9% 1,000 ML IV SCH ×3 (05:41→20:52)
[2019-11-16 07:47] LABS: Basophils % (A) 0 %; Eosinophils # (A) 0.1 k/uL (0-0.7); Eosinophils % (A) 1 %; HCT 32.8 % (39.0-53.0); HGB 11.1 gm/dL (13.0-17.5); Lymphocytes # (A) 0.5 k/uL (1.0-4.8); Lymphocytes % (A) 2 %; MCH 29.9 pg (25.0-35.0); MCHC 33.9 g/dL (31.0-37.0); MCV 88.3 fL (80.0-100.0); Mean Platelet Volume 6.8; Monocytes # (A) 1.5 k/uL (0-1.0); Monocytes % (A) 7 %; Neutrophils % (A) 90 %; Platelet Count 187 k/uL (150-450); RBC 3.71 m/uL (4.30-5.90); RDW 14.3 % (11.5-15.5); WBC 21.2 k/uL (3.8-10.6)
[2019-11-16] MEDS: MYCOPHENOLATE MOFETIL 500 MG TAB PO SCH ×2 (07:56→20:52)
[2019-11-16] MEDS: SODIUM BICARBONATE TAB 650 MG TAB PO SCH ×3 (07:58→20:50)
[2019-11-16] MEDS: APIXABAN 5 MG TAB PO SCH ×2 (07:58→20:50)
[2019-11-16] MEDS: ALLOPURINOL 100 MG TAB PO SCH (07:58)
[2019-11-16] MEDS: FERROUS SULFATE 325 MG TAB PO SCH ×2 (07:58→20:50)
[2019-11-16] MEDS: CALCITRIOL 0.25 MCG CAP PO SCH (07:58)
[2019-11-16] MEDS: hydrALAZINE HCL 50 MG TAB PO SCH ×3 (07:58→20:50)
[2019-11-16] MEDS: PANTOPRAZOLE 40 MG TABLET PO SCH (07:59)
[2019-11-16] MEDS: amLODIPine 5 MG TAB PO SCH (07:59)
[2019-11-16] MEDS: POLYETHYLENE GLYCOL 3350 17 GM POWD.PACK PO SCH ×2 (07:59→20:51)
[2019-11-16] MEDS: predniSONE 5 MG TAB PO SCH (07:59)
[2019-11-16] MEDS: TACROLIMUS 0.5 MG CAP PO SCH (08:01)
[2019-11-16 08:36] LABS: Albumin 2.8 g/dL (3.5-5.0); Calcium 7.9 mg/dL (8.4-10.2); Potassium 3.7 mmol/L (3.5-5.1); Total Bilirubin 1.2 mg/dL (0.2-1.3); Total Protein 5.1 g/dL (6.3-8.2)
[2019-11-16] MEDS ORDERED: ERGOCALCIFEROL 50,000 UNIT CAP PO SCH (09:00)
--- NOTE | 2019-11-16 12:05 | P.PN ---
Subjective Progress Note Date: 11/16/19 54-year-old male one of Dr.Kut Dr. 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 Patient still has a gallbladder during this evaluation. He presented with the above symptoms, to the emergency room Patient was subsequently seen in emergency room secondary to worsening of symptoms of abdominal pain, computed tomography scan of the abdomen and pelvis without contrast shows liver no deficit spleen normal no evidence of pancreatic mass Gallbladder is enlarged 4 cm common bile duct not dilated, no bowel obstruction, no free air, no ascites, no retroperitoneal adenopathy, transplant kidney is large 12.7 x 6.4 cm, right side. Paternal fluid extends to the left side. The per Kiah, pancreas is essentially absent, the extensive retroperitoneal fluid on the right side in the Route transplant kidney similar to the old exam, the retroperitoneal fluid across midline which is a change from previous old, possible transfer plan chronic rejection is possible has chronically dilated urinary bladder Symmetrel exam, cardiomegaly with atherosclerotic vascular disease noted. Labs lipase 1500, creatinine 0.97, sodium 136, triglycerides 78 WBC count of 14, platelet count of 248, INR 1.0 glucose 152. Consult were made with GI and Dr. Jo for transplant kidney pancreas issues as well as acute pancreatitis new onset. Patient is not alcoholic, 11/15: Patient denies having any nausea or vomiting. He is feeling better from yesterday. He has had no blood in his urine. Patient has been seen by Dr. Roblero with plan for clear liquid diet, advance as tolerated, MiraLAX added. Patient is followed by nephrology with recommendations to continue current imm unosuppressive treatment and check Prograf level. Patient has been afebrile, heart rate 91, blood pressure 146/70, pulse ox 93% on room air. Repeat blood work reveals WBC 21.2, hemoglobin 11.1. Sodium 134, potassium 3.7, chloride 106, CO2 21, BUN 19 and creatinine 1.36. Urine drug screen positive for opiates and oxycodone. Diet will be advanced to full liquids and as tolerated. Objective - Vital Signs Vital signs: Vital Signs Temp 98.4 F 11/16/19 07:00 Pulse 91 11/16/19 07:00 Resp 17 11/16/19 07:00 BP 146/70 11/16/19 07:00 Pulse Ox 93 L 11/16/19 07:00 Intake & Output 11/15/19 11/16/19 11/16/19 18:59 06:59 18:59 Intake Total 525 100 Balance 525 100 Intake: Intake, IV Titration 525 Amount Sodium Chloride 0.9% 1, 525 000 ml @ 75 mls/hr IV . [id number] [facility] Rx#:[id number] Oral 100 Other: # Voids 2 - Exam Review of Systems Constitutional: No fever, no chills, no night sweats. No weight change. No weakness, fatigue or lethargy. No daytime sleepiness. EENT: No headache. No blurred vision or double vision, no loss of vision. No loss of Hearing, no ringing in the ears, no dizziness. No nasal drainage or congestion. No epistaxis. No sore throat. Lungs: No shortness of breath, cough, no sputum production. No wheezing. Cardiovascular: No chest pain, no lower extremity edema. No palpitations. No paroxysmal nocturnal dyspnea. No orthopnea. No lightheadedness or dizziness. No syncopal episodes. Abdominal: Reports abdominal pain-improved. Reports early satiety, Reports indigestion, Reports loss of appetite, denies nausea, denies vomiting. No diarrhea. No constipation. No bloody or tarry stools. Genitourinary: No dysuria, increased frequency, urgency. No urinary retention. Musculoskeletal: No myalgias. No muscle weakness, no gait dysfunction, no frequent falls. No back pain. No neck pain. Integumentary: No wounds, no lesions. No rash or pruritus. No unusual bruising. No change in hair or nails. Neurologic: No aphasia. No facial droop. No change in mentation. No head injury. No headache. No paralysis. No paresthesia. Psychiatric: No depression. No anxiety. No mood swings. Endocrine: No abnormal blood sugars. No weight change. No excessive sweating or thirst. No cold intolerance. Physical Examination - Constitutional General appearance: average body habitus, cooperative, no acute distress - EENT Eyes: anicteric sclerae, EOMI, PERRLA, dentition normal, normal appearance ENT: NA/AT, normal oropharynx - Neck Neck: normal ROM - Respiratory Respiratory: bilateral: CTA, negative: diminished, dullness, rales - Cardiovascular Rhythm: regular Heart sounds: normal: S1, S2 Abnormal Heart Sounds: no systolic murmur, no diastolic murmur, no rub, no S3 Gallop, no S4 Gallop, no click, no other - Gastrointestinal General gastrointestinal: normal bowel sounds, abdomen soft - Integumentary Integumentary: decreased turgor, normal - Musculoskeletal Musculoskeletal: gait normal, strength equal bilaterally - Psychiatric Psychiatric: A&O x's 3, appropriate affect - Labs CBC & Chem 7: 11/16/19 07:16 11/16/19 07:16 Labs: Abnormal Lab Results - Last 24 Hours (Table) 11/15/19 11/16/19 11/16/19 Range/Units 11:51 04:00 07:16 WBC 21.2 H (3.8-10.6) k/uL RBC 3.71 L (4.30-5.90) m/uL Hgb 11.1 L (13.0-17.5) gm/dL Hct 32.8 L (39.0-53.0) % Neutrophils # 19.0 H (1.3-7.7) k/uL Lymphocytes # 0.5 L (1.0-4.8) k/uL Monocytes # 1.5 H (0-1.0) k/uL Urine Protein 1+ H (Negative) Urine Blood Moderate H (Negative) Ur Leukocyte Esterase Large H (Negative) Urine RBC >182 H (0-5) /hpf Urine WBC 65 H (0-5) /hpf Urine Mucus Rare H (None) /hpf Urine Opiates Screen Detected H (NotDetected) Ur Oxycodone Screen Detected H (NotDetected) Microbiology - Last 24 Hours (Table) 11/15/19 11:51 Urine Culture - Preliminary Urine,Voided Assessment and Plan Plan: 1. Acute pancreatitis on prior transplanted pancreas, 2000. Continue immunosuppressive medications GI consult with Dr. Roblero. Advance diet to full liquid, recheck lipase. 2. Multiple skin cancers with recent graft to scalp donor site is in the left chest wall, sutures will be taken out November 21 no identifiable infection noted, 3. 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 Jo, renal transplant history. Prograf level pending. 4. Diabetes mellitus type 1, currently not on any oral agents status post pancreatic transplantation 2000 check A1c as well as Accu-Cheks 5. Arrhythmia: Patient is doing very well on labetalol.400 bid long-term anticoagulation with Eloquis 5 mg twice a day 6. Double kidney and pancreas transplant: Remain on Prograf along with CellCept and 5 mg of prednisone continue medication consult nephrology keep watching the kidney function with a current management. 7. History of obstructive sleep apnea: Has been on CPAP nasalon regular basis. 8. Hypertension: Remain on norvasc hydralazine 9. Hyperlipidemia: Remain on pravastatin. 10. History of skin cancer: Has been seen dermatology regular basis and in treatment.with graft on the scalp 11. GI prophylaxis: Continue patient on Pepcid 20 mg daily. 12. DVT prophylaxis: Patient will be on heparin subcutaneous. 13. COVID-19 infection testing in process. CODE STATUS: Full code. Discharge plan: Home Impression and plan of care have been directed as dictated by the signing physician. Chata Garcia nurse practitioner acting as scribe for signing physician.
--- NOTE | 2019-11-16 16:03 | PN ---
PROGRESS NOTE Patient is seen for followup for post-transplant care. He was admitted to the hospital with abdominal pain, nausea and vomiting. He was noticed to have pancreatitis. Lipase was as high as 1504. It is down to 208 today. Patient has started to increase his oral intake; however, he remains on liquid diet. He is maintained on IV fluids. His creatinine today went up to 1.3 from 1.0 yesterday. PHYSICAL EXAMINATION: On examination today, blood pressure was 155/70, heart rate 95 per minute. He is afebrile. EXAMINATION OF THE HEART: S1 and S2. EXAMINATION OF LUNGS: Decreased breath sounds at bases. ABDOMEN: Soft, non-tender. Examination of lower extremities shows no significant edema. LABS: Labs show sodium 134, potassium 3.7, BUN 19, serum creatinine 1.36, hemoglobin 11.1 g/dL. UA showed WBCs 65, RBCs more than 182, 1+ protein. ASSESSMENT: 1. Acute kidney injury, most likely prerenal. Increase IV fluids to 100 mL/hour. 2. Acute pancreatitis. Lipase has decreased. Patient is tolerating oral intake. 3. History of living-unrelated renal transplant x2 with the last transplant in 2000. Renal function not far from baseline. 4. Benign prostatic hypertrophy, maintained on Flomax. 5. Chronic kidney disease mineral bone disorder, currently on calcitriol. PLAN: Increase IV fluids to 100 mL/hour. Repeat labs in a.m. Continue to advance diet as tolerated. MMODL / IJN: [id number] /
[2019-11-16] MEDS: MONTELUKAST 10 MG TAB PO SCH (20:50)
[2019-11-16] MEDS: MELATONIN 3 MG TABLET PO SCH (20:50)
[2019-11-16] MEDS: TAMSULOSIN 0.4 MG CAP.ER.24H PO SCH (20:50)
[2019-11-16] MEDS: TACROLIMUS 1 MG CAP PO SCH (20:51)
--- NOTE | 2019-11-17 04:45 | P.PN ---
Subjective Progress Note Date: 11/16/19 Principal diagnosis: Acute pancreatitis, history of pancreas transplant Patient is lying in bed with no acute complaints. Abdominal pain is improving. No nausea or vomiting, he has tolerated a liquid diet. Objective - Vital Signs Vital signs: Vital Signs Temp 99.4 F 11/16/19 14:49 Pulse 94 11/16/19 14:49 Resp 19 11/16/19 14:49 BP 129/65 11/16/19 14:49 Pulse Ox 93 L 11/16/19 14:49 Intake & Output 11/15/19 11/16/19 11/16/19 18:59 06:59 18:59 Intake Total 525 100 800 Balance 525 100 800 Intake: Intake, IV Titration 525 800 Amount Sodium Chloride 0.9% 1, 525 800 000 ml @ 100 mls/hr IV . Q10H [facility] Rx#:[id number] Oral 100 Other: # Voids 2 3 - Exam On physical examination, patient appears comfortable in no apparent distress. HEAD: Normocephalic, atraumatic. EYES: No scleral icterus. No conjunctival injection. MOUTH: No lesions, tongue midline. NECK: Trachea midline, no gross abnormalities. ABDOMEN: Soft, moderately tender worse on the left side of the abdomen. Bowel sounds are positive. No organomegaly. No guarding or rigidity. EXTREMITIES: No pedal edema. SKIN: No rashes, no jaundice. NEUROLOGIC: Alert and oriented x3. No focal deficits. - Labs CBC & Chem 7: 11/16/19 07:16 11/16/19 07:16 Labs: Abnormal Lab Results - Last 24 Hours (Table) 11/16/19 11/16/19 11/16/19 Range/Units 04:00 07:16 07:16 WBC 21.2 H (3.8-10.6) k/uL RBC 3.71 L (4.30-5.90) m/uL Hgb 11.1 L (13.0-17.5) gm/dL Hct 32.8 L (39.0-53.0) % Neutrophils # 19.0 H (1.3-7.7) k/uL Lymphocytes # 0.5 L (1.0-4.8) k/uL Monocytes # 1.5 H (0-1.0) k/uL Sodium 134 L (137-145) mmol/L Carbon Dioxide 21 L (22-30) mmol/L Creatinine 1.36 H (0.66-1.25) mg/dL Glucose 134 H (74-99) mg/dL Calcium 7.9 L (8.4-10.2) mg/dL Total Protein 5.1 L (6.3-8.2) g/dL Albumin 2.8 L (3.5-5.0) g/dL Urine Opiates Screen Detected H (NotDetected) Ur Oxycodone Screen Detected H (NotDetected) Microbiology - Last 24 Hours (Table) 11/15/19 11:51 Urine Culture - Preliminary Urine,Voided Assessment and Plan (1) Acute pancreatitis Narrative/Plan: 54-year-old male with multiple medical comorbidities including prior transplants of both the kidneys secondary to diabetic nephropathy and of the pancreas secondary to a history of diabetes mellitus since 11 with his last transplants in 2000 who presented with abdominal pain, nausea and vomiting found to have elevation in his lipase with associated abdominal pain diagnosis is of acute uncomplicated pancreatitis with no acute abnormality seen on CT or ultrasound of the abdomen. Liver enzymes within normal limits. Denies any alcohol abuse. No new medications. Current Visit: Yes Status: Acute Code(s): K85.90 - ACUTE PANCREATITIS WITHOUT NECROSIS OR INFECTION, UNSP SNOMED Code(s): 710493138 (2) Abdominal pain Current Visit: Yes Status: Acute Code(s): R10.9 - UNSPECIFIED ABDOMINAL PAIN SNOMED Code(s): 61868531 (3) Elevated lipase Current Visit: Yes Status: Acute Code(s): R74.8 - ABNORMAL LEVELS OF OTHER SERUM ENZYMES SNOMED Code(s): 600644889 (4) Pancreas transplant status Current Visit: Yes Status: Acute Code(s): Z94.83 - PANCREAS TRANSPLANT STATUS SNOMED Code(s): 680069200 Plan: Supportive care Clear liquid diet, advance as tolerated Continue IV fluid hydration Continue pain control Continue to monitor BMP, CBC Patient reporting constipation and MiraLAX therapy has been added Thank you for allowing us to participate in the care of the patient we will continue to follow
[2019-11-17] MEDS: ALLOPURINOL 100 MG TAB PO SCH (07:14)
[2019-11-17] MEDS: APIXABAN 5 MG TAB PO SCH (07:14)
[2019-11-17] MEDS: SODIUM BICARBONATE TAB 650 MG TAB PO SCH (07:14)
[2019-11-17 07:15] VITALS: BP 131/68; PULSE 99; RESP 14; TEMP 98.2
[2019-11-17] MEDS: PANTOPRAZOLE 40 MG TABLET PO SCH (07:15)
[2019-11-17] MEDS: amLODIPine 5 MG TAB PO SCH (07:15)
[2019-11-17] MEDS: hydrALAZINE HCL 50 MG TAB PO SCH (07:15)
[2019-11-17] MEDS: FERROUS SULFATE 325 MG TAB PO SCH (07:15)
[2019-11-17] MEDS: TACROLIMUS 0.5 MG CAP PO SCH (07:17)
[2019-11-17] MEDS: CALCITRIOL 0.25 MCG CAP PO SCH (07:17)
[2019-11-17] MEDS: MYCOPHENOLATE MOFETIL 500 MG TAB PO SCH (07:18)
[2019-11-17] MEDS: predniSONE 5 MG TAB PO SCH (07:19)
[2019-11-17] MEDS: POLYETHYLENE GLYCOL 3350 17 GM POWD.PACK PO SCH (07:20)
[2019-11-17 08:19] LABS: Basophils % (A) 0 %; Eosinophils % (A) 0 %; HCT 33.8 % (39.0-53.0); HGB 11.2 gm/dL (13.0-17.5); Lymphocytes # (A) 0.5 k/uL (1.0-4.8); Lymphocytes % (A) 3 %; MCH 29.4 pg (25.0-35.0); MCHC 33.2 g/dL (31.0-37.0); MCV 88.6 fL (80.0-100.0); Mean Platelet Volume 7.3; Monocytes # (A) 0.9 k/uL (0-1.0); Monocytes % (A) 5 %; Neutrophils # (A) 15.4 k/uL (1.3-7.7); Neutrophils % (A) 90 %; Platelet Count 206 k/uL (150-450); RBC 3.81 m/uL (4.30-5.90); RDW 14.1 % (11.5-15.5)
[2019-11-17 08:27] LABS: Albumin 2.7 g/dL (3.5-5.0); Calcium 7.9 mg/dL (8.4-10.2); Potassium 3.5 mmol/L (3.5-5.1); Total Bilirubin 0.8 mg/dL (0.2-1.3); Total Protein 5.2 g/dL (6.3-8.2)
--- NOTE | 2019-11-17 11:09 | P.DS ---
Providers Date of admission: 11/14/19 23:22 Expected date of discharge: 11/17/19 Attending physician: Miroslava Sanchez Consults: 11/14/19 23:20 Consult Physician Urgent Consulting Provider: Oneal Roblero Consult Reason/Comments: abd pain, elevated lipase, hx pancreas transplant Do you want consulting provider notified?: Yes, Notify in am 11/14/19 23:21 Consult Physician Urgent Consulting Provider: Eleonora Jo Consult Reason/Comments: renal transplant patient Do you want consulting provider notified?: Yes Primary care physician: Sujit Cartagena [facility] Course: 54-year-old male one of Dr.Kut Dr. 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 Patient still has a gallbladder during this evaluation. He presented with the above symptoms, to the emergency room Patient was subsequently seen in emergency room secondary to worsening of symptoms of abdominal pain, computed tomography scan of the abdomen and pelvis without contrast shows liver no deficit spleen normal no evidence of pancreatic mass Gallbladder is enlarged 4 cm common bile duct not dilated, no bowel obstruction, no free air, no ascites, no retroperitoneal adenopathy, transplant kidney is large 12.7 x 6.4 cm, right side. Paternal fluid extends to the left side. The per Kiah, pancreas is essentially absent, the extensive retroperitoneal fluid on the right side in the Route transplant kidney similar to the old exam, the retroperitoneal fluid across midline which is a change from previous old, possible transfer plan chronic rejection is possible has chronically dilated urinary bladder Symmetrel exam, cardiomegaly with atherosclerotic vascular disease noted. Labs lipase 1500, creatinine 0.97, sodium 136, triglycerides 78 WBC count of 14, platelet count of 248, INR 1.0 glucose 152. Consult were made with GI and Dr. Jo for transplant kidney pancreas issues as well as acute pancreatitis new onset. Patient is not alcoholic, 11/15: Patient denies having any nausea or vomiting. He is feeling better from yesterday. He has had no blood in his urine. Patient has been seen by Dr. Roblero with plan for clear liquid diet, advance as tolerated, MiraLAX added. Patient is followed by nephrology with recommendations to continue current immunosuppressive treatment and check Prograf level. Patient has been afebrile, heart rate 91, blood pressure 146/70, pulse ox 93% on room air. Repeat blood work reveals WBC 21.2, hemoglobin 11.1. Sodium 134, potassium 3.7, chloride 106, CO2 21, BUN 19 and creatinine 1.36. Urine drug screen positive for opiates and oxycodone. Diet will be advanced to full liquids and as tolerated. 11/16: Patient has been afebrile, heart rate 99, blood pressure 131/68, pulse ox 94% on room air. repeat blood work reveals WBC 17.1 which is improved, hemoglobin 11.2, platelet count 206. Sodium 135, potassium 3.5, chloride 107, CO2 20, BUN 19 and creatinine 1.22. Patient denies having any abdominal pain. No nausea or vomiting. MiraLAX was added by GI. The patient has been on Rocephin for urinary tract infection but urine culture is showing no growth. There was noted blood in his urinalysis. We will ask for repeat urinalysis prior to discharge. Patient has been cleared by Dr. Jo for discharge. Patient has plans to follow up with [facility] on Saturday regarding skin biopsy report. Patient will be discharged home today in stable condition. Discharge diagnoses: 1. Acute pancreatitis on prior transplanted pancreas, 2000. 2. Multiple skin cancers with recent graft to scalp donor site is in the left chest wall. 3. Status post kidney and pancreas. 4. Diabetes mellitus type 1, currently not on any oral agents status post pancreatic transplantation 2000 check A1c as well as Accu-Cheks 5. Metabolic acidosis, resolved. 6. Arrhythmia. 7. History of obstructive sleep apnea on CPAP. 8. Hypertension. 9. Hyperlipidemia. 10. History of skin cancer. 11. Benign prostatic hypertrophy. 12. Hematuria. Repeat UA. 13. COVID-19 infection not present. Discharge plan: Home Impression and plan of care have been directed as dictated by the signing physician. Chata Garcia nurse practitioner acting as scribe for signing physician. Patient Condition at Discharge: Good Plan - Discharge Summary Discharge Rx Participant: No New Discharge Prescriptions: New hydrALAZINE HCL [Apresoline] 50 mg PO TID #90 tab Cefuroxime Axetil [Ceftin] 500 mg PO BID 3 Days #6 tab Polyethylene Glycol 3350 [Miralax] 17 gm PO BID powd.pack Continue Pravastatin Sodium [Pravachol] 20 mg PO HS Sodium Bicarbonate Tab 1,300 mg PO TID Lansoprazole 30 mg PO DAILY Tacrolimus [Prograf] 1 mg PO QAM Tamsulosin [Flomax] 0.4 mg PO HS Apixaban [Eliquis] 5 mg PO BID Ferrous Sulfate [Iron (65 MG Elemental)] 325 mg PO BID Calcitriol [Rocaltrol] 0.25 mcg PO SUTUTHSA Allopurinol [Zyloprim] 100 mg PO DAILY Montelukast [Singulair] 10 mg PO HS predniSONE 5 mg PO DAILY Tacrolimus [Prograf] 1.5 mg PO HS Niacinamide 500 mg PO BID Ipratropium-Albuterol Nebulize [Duoneb 0.5 mg-3 mg/3 ml Soln] 3 ml INHALATION RT-QID PRN PRN Reason: Shortness Of Breath Budesonide [Pulmicort] 0.5 mg INHALATION RT-BID PRN PRN Reason: Shortness Of Breath amLODIPine [Norvasc] 5 mg PO BID Labetalol HCl 400 mg PO BID Calcitriol 0.5 mcg PO MOWEFR Mycophenolate Mofetil [Cellcept] 500 mg PO BID Discontinued hydrALAZINE HCL [Apresoline] 75 mg PO BID Discharge Medication List Pravastatin Sodium [Pravachol] 20 mg PO HS 11/23/13 [History] Sodium Bicarbonate Tab 1,300 mg PO TID 11/23/13 [History] Lansoprazole 30 mg PO DAILY 07/14/18 [History] Tacrolimus [Prograf] 1 mg PO QAM 07/14/18 [History] Apixaban [Eliquis] 5 mg PO BID 09/18/18 [History] Tamsulosin [Flomax] 0.4 mg PO HS 09/18/18 [History] Allopurinol [Zyloprim] 100 mg PO DAILY 12/17/18 [History] Calcitriol [Rocaltrol] 0.25 mcg PO SUTUTHSA 12/17/18 [History] Ferrous Sulfate [Iron (65 MG Elemental)] 325 mg PO BID 12/17/18 [History] Montelukast [Singulair] 10 mg PO HS 12/17/18 [History] Tacrolimus [Prograf] 1.5 mg PO HS 03/09/19 [History] predniSONE 5 mg PO DAILY 03/09/19 [History] Budesonide [Pulmicort] 0.5 mg INHALATION RT-BID PRN 11/15/19 [History] Calcitriol 0.5 mcg PO MOWEFR 11/15/19 [History] Ipratropium-Albuterol Nebulize [Duoneb 0.5 mg-3 mg/3 ml Soln] 3 ml INHALATION RT-QID PRN 11/15/19 [History] Labetalol HCl 400 mg PO BID 11/15/19 [History] Niacinamide 500 mg PO BID 11/15/19 [History] amLODIPine [Norvasc] 5 mg PO BID 11/15/19 [History] Mycophenolate Mofetil [Cellcept] 500 mg PO BID 11/16/19 [History] Cefuroxime Axetil [Ceftin] 500 mg PO BID 3 Days #6 tab 11/17/19 [Rx] Polyethylene Glycol 3350 [Miralax] 17 gm PO BID powd.pack 11/17/19 [Rx] hydrALAZINE HCL [Apresoline] 50 mg PO TID #90 tab 11/17/19 [Rx] Follow up Appointment(s)/Referral(s): Sujit Cartagena MD [Primary Care Provider] - 1 Week Activity/Diet/Wound Care/Special Instructions: follow-up with [facility] dermatology and transplant team. Discharge Disposition: HOME SELF-CARE
[2019-11-17] MEDS: SODIUM CHLORIDE 0.9% 1,000 ML IV SCH (11:46)
[2019-11-17 12:07] LABS: Appearance,Urine Cloudy (Clear); Bacteria,Urine Few /hpf; Bilirubin,Urine Negative (Negative); Blood,Urine Moderate (Negative); Color,Urine Yellow; Glucose,Urine (UA) Negative (Negative); Ketones,Urine Negative (Negative); Leukocyte Esterase,Urine Large (Negative); Mucus,Urine Rare /hpf; Nitrite,Urine Negative (Negative); Protein,Urine 1+ (Negative); RBC,Urine 83 /hpf (0-5); Specific Gravity,Urine 1.013 (1.001-1.035); Squamous Epithelial Cell,Urine <1 /hpf (0-4); Urobilinogen,Urine <2.0 mg/dL (<2.0); WBC,Urine >182 /hpf (0-5)
--- NOTE | 2019-11-17 15:11 | PN ---
PROGRESS NOTE Patient is seen for followup for posttransplant care. He was admitted with abdominal pain and found to have acute pancreatitis. Symptoms have improved. No complaints of abdominal pain. Patient has been tolerating oral diet, it is being advanced today. Serum creatinine had gone up to 1.3 from 1.0. The patient's IV fluids were increased yesterday. He is down to 1.2 again today. No other major complaints. PHYSICAL EXAMINATION: Blood pressure was 131/68, heart rate 99 per minute, he is afebrile. Examination of the heart S1, S2. Examination of the lungs, bilateral breath sounds are heard. Decreased breath sounds at bases. Abdomen is soft, nontender. Examination of the lower extremities shows no evidence of edema. Scar from skin graft in the upper part of the chest is currently healing well. Bruising has decreased. TELEVISION ENGINEER exam grossly intact. LABS: Show sodium 135, potassium 3.5, chloride 107, BUN 19, creatinine 1.2. ASSESSMENT: 1. Status post living related allograft with stable renal function. 2. Acute pancreatitis, currently improved. 3. BPH maintained on Flomax. 4. CKD mineral bone disorder. PLAN: Continue current immunosuppression. Maintain adequate fluid intake. Follow up as outpatient. MMODL / IJN: [id number] /
== END 2019-11-17 12:30 | disposition home or self-care (01) | DRG 438 ==
LOC: EC 20:18 → 4SSUR 23:22
PROVIDERS: ADMIT Family Medicine; ATTEND Family Medicine
DX: T86.898 Other complications of other transplanted tissue (principal); K85.90 Acute pancreatitis without necrosis or infection, unspecified; Z94.0 Kidney transplant status; N39.0 Urinary tract infection, site not specified; E87.2 Acidosis; I13.0 Hypertensive heart and chronic kidney disease with heart failure and stage 1 through stage 4 chronic kidney disease, or unspecified chronic kidney disease; I50.32 Chronic diastolic (congestive) heart failure; N17.9 Acute kidney failure, unspecified; E78.5 Hyperlipidemia, unspecified; M19.90 Unspecified osteoarthritis, unspecified site; Z96.1 Presence of intraocular lens; Z96.652 Presence of left artificial knee joint; Y83.0 Surgical operation with transplant of whole organ as the cause of abnormal reaction of the patient, or of later complication, without mention of misadventure at the time of the procedure; G47.33 Obstructive sleep apnea (adult) (pediatric); C44.90 Unspecified malignant neoplasm of skin, unspecified; N40.0 Benign prostatic hyperplasia without lower urinary tract symptoms; N18.9 Chronic kidney disease, unspecified; N25.0 Renal osteodystrophy; E10.22 Type 1 diabetes mellitus with diabetic chronic kidney disease; E10.319 Type 1 diabetes mellitus with unspecified diabetic retinopathy without macular edema; R31.9 Hematuria, unspecified; E10.43 Type 1 diabetes mellitus with diabetic autonomic (poly)neuropathy; Z11.59 Encounter for screening for other viral diseases; K31.84 Gastroparesis; K59.00 Constipation, unspecified; Z79.01 Long term (current) use of anticoagulants; Z79.4 Long term (current) use of insulin; Z79.899 Other long term (current) drug therapy; Z91.041 Radiographic dye allergy status; Z99.89 Dependence on other enabling machines and devices; Z83.3 Family history of diabetes mellitus; Z80.0 Family history of malignant neoplasm of digestive organs; Z85.828 Personal history of other malignant neoplasm of skin; Z98.49 Cataract extraction status, unspecified eye; Z82.3 Family history of stroke
CPT/HCPCS: 36415; 74176; 76705; 80048; 80053; 80061; 80197; 80306; 80320; 81001; 83605; 83690; 85025; 85610; 85730; 87086; 93005; 96361; 96374; 96375; 99285

== ENCOUNTER 2019-11-22 20:30 | Emergency (ER) | payer MEDICARE ==
[2019-11-22] MEDS ORDERED: FAMOTIDINE 20 MG/2 ML VIAL IV STA (20:44)
[2019-11-22] MEDS ORDERED: ONDANSETRON 4 MG/2 ML VIAL IVP STA (20:44)
[2019-11-22] MEDS ORDERED: SODIUM CHLORIDE 0.9% 1,000 ML IV STA (20:44)
[2019-11-22] MEDS ORDERED: HYDROmorphone 0.5 MG/0.5 ML SYRINGE IVP STA (20:50)
--- NOTE | 2019-11-22 20:54 | ED ---
Abdominal Pain HPI - General Chief Complaint: Abdominal Pain Stated Complaint: Abd Pain, NVD Time Seen by Provider: 11/22/19 20:38 Source: patient Mode of arrival: ambulatory Limitations: no limitations - History of Present Illness Initial Comments: Patient is a 54-year-old male with history of pancreatitis presenting to the emergency department with a chief complaint of nausea vomiting diarrhea. Patient states he was discharged 2 days ago from the hospital for pancreatitis. Patient states he continued have diarrhea at home but today he has developed nausea with multiple episodes of nonbilious, nonbloody vomiting. States the onset of the symptoms occurred about 3 hours prior to arrival. States he has some. Umbilical pain states the abdominal pain is less compared to his last admission. Patient states she had a pancreatic and renal transplant. 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 Patient denies any night sweats or chills. Denies any penile discharge, testicular pain or tenderness. Denies hematuria, hematochezia or melena. States he only drinks alcohol occasionally. - Related Data Home Medications Medication Instructions Recorded Confirmed Pravastatin Sodium [Pravachol] 20 mg PO HS 11/23/13 11/15/19 Sodium Bicarbonate Tab 1,300 mg PO TID 11/23/13 11/15/19 Lansoprazole 30 mg PO DAILY 07/14/18 11/15/19 Tacrolimus [Prograf] 1 mg PO QAM 07/14/18 11/16/19 Apixaban [Eliquis] 5 mg PO BID 09/18/18 11/15/19 Tamsulosin [Flomax] 0.4 mg PO HS 09/18/18 11/15/19 Allopurinol [Zyloprim] 100 mg PO DAILY 12/17/18 11/15/19 Calcitriol [Rocaltrol] 0.25 mcg PO SUTUTHSA 12/17/18 11/15/19 Ferrous Sulfate [Iron (65 MG 325 mg PO BID 12/17/18 11/15/19 Elemental)] Montelukast [Singulair] 10 mg PO HS 12/17/18 11/15/19 Tacrolimus [Prograf] 1.5 mg PO HS 03/09/19 11/16/19 predniSONE 5 mg PO DAILY 03/09/19 11/15/19 Budesonide [Pulmicort] 0.5 mg INHALATION RT-BID PRN 11/15/19 11/15/19 Calcitriol 0.5 mcg PO MOWEFR 11/15/19 11/15/19 Ipratropium-Albuterol Nebulize 3 ml INHALATION RT-QID PRN 11/15/19 11/15/19 [Duoneb 0.5 mg-3 mg/3 ml Soln] Labetalol HCl 400 mg PO BID 11/15/19 11/15/19 Niacinamide 500 mg PO BID 11/15/19 11/15/19 amLODIPine [Norvasc] 5 mg PO BID 11/15/19 11/15/19 Mycophenolate Mofetil [Cellcept] 500 mg PO BID 11/16/19 11/16/19 Previous Rx's Medication Instructions Recorded Cefuroxime Axetil [Ceftin] 500 mg PO BID 3 Days #6 tab 11/17/19 Polyethylene Glycol 3350 [Miralax] 17 gm PO BID powd.pack 11/17/19 hydrALAZINE HCL [Apresoline] 50 mg PO TID #90 tab 11/17/19 Ondansetron Odt [Zofran Odt] 4 mg PO Q8HR PRN #14 tab 11/22/19 Allergies Allergy/AdvReac Type Severity Reaction Status Date / Time Iodine and Iodide Containing AdvReac HX OF Verified 11/22/19 20:36 Produc KIDNEY DISEASE Review of Systems ROS Statement: Those systems with pertinent positive or pertinent negative responses have been documented in the HPI. ROS Other: All systems not noted in ROS Statement are negative. Past Medical History Past Medical History: Cancer, Heart Failure, Hyperlipidemia, Hypertension, Osteoarthritis (OA), Renal Disease, Sleep Apnea/CPAP/BIPAP Additional Past Medical History / Comment(s): ARDS, hx of DM was tx for dm from age 9 to age 35(had pancreas transplant), uses cpap machine, basal and squamous cell skin cancer, hx rt elbow broken-(sx), charcots foot, pancreatitis, History of Any Multi-Drug Resistant Organisms: None Reported Past Surgical History: Hernia Repair, Joint Replacement Additional Past Surgical History / Comment(s): kidney and pancreas transplant , L knee replacment, rt elbow sx has 7 screws,cataracts removed-lens implants, laser eye sx for retinopathy, fernando foot sx(rt foot bone gravt and lt foot bone shaved), skin cancer removed on his head, Past Anesthesia/Blood Transfusion Reactions: No Reported Reaction Past Psychological History: No Psychological Hx Reported Smoking Status: Never smoker Past Alcohol Use History: Occasional Past Drug Use History: None Reported - Past Family History Mother Family Medical History: Cancer, Diabetes Mellitus Additional Family Medical History / Comment(s): liver cancer Father Family Medical History: CVA/TIA Additional Family Medical History / Comment(s): was smoker had ctroke in his 30's General Exam Limitations: no limitations General appearance: alert, in no apparent distress Head exam: Present: atraumatic, normocephalic, normal inspection Eye exam: Present: normal appearance, PERRL, EOMI Pupils: Present: normal accommodation ENT exam: Present: normal exam, normal oropharynx, mucous membranes moist Neck exam: Present: normal inspection, full ROM Respiratory exam: Present: normal lung sounds bilaterally. Absent: respiratory distress, wheezes, rales Cardiovascular Exam: Present: regular rate, normal rhythm, normal heart sounds GI/Abdominal exam: Present: soft, tenderness (Mild periumbilical tenderness). Absent: distended, guarding, rebound, rigid Extremities exam: Present: normal inspection, full ROM Back exam: Present: normal inspection, full ROM Neurological exam: Present: alert, oriented X3 Psychiatric exam: Present: normal affect, normal mood Skin exam: Present: warm, dry, intact, normal color Course Vital Signs 11/22/19 20:34 Temperature 98.6 F Pulse Rate 82 Respiratory 18 Rate Blood Pressure 168/80 O2 Sat by Pulse 95 Oximetry Medical Decision Making - Medical Decision Making Patient is a 54-year-old male with history of pancreatitis is presenting to the emergency department with a chief complaint of pancreatitis. On exam patient has mild. Umbilical pain patient was given antiemetics fluids and analgesia. CBC reveals mild anemia with decreasing hemoglobin from 11.2-10.3 over the last 3 days. CMP reveals normal amylase and lipase levels. A reevaluation patient reports symptoms are improved. States he would like to be discharged as he has an appointment with his hand bander tomorrow. Patient will be discharged with Zofran [id number]. Return parameters were thoroughly discussed the patient was understanding and agreeable. Case discussed with physician. - Lab Data Result diagrams: 11/22/19 21:11/22/19 21:01 Lab Results 11/22/19 11/22/19 Range/Units 21:01 21:01 WBC 13.6 H (3.8-10.6) k/uL RBC 3.68 L (4.30-5.90) m/uL Hgb 10.3 L (13.0-17.5) gm/dL Hct 31.8 L (39.0-53.0) % MCV 86.3 (80.0-100.0) fL MCH 28.0 (25.0-35.0) pg MCHC 32.5 (31.0-37.0) g/dL RDW 14.1 (11.5-15.5) % Plt Count 292 (150-450) k/uL Neutrophils % 90 % Lymphocytes % 5 % Monocytes % 4 % Eosinophils % 1 % Basophils % 0 % Neutrophils # 12.2 H (1.3-7.7) k/uL Lymphocytes # 0.6 L (1.0-4.8) k/uL Monocytes # 0.5 (0-1.0) k/uL Eosinophils # 0.1 (0-0.7) k/uL Basophils # 0.0 (0-0.2) k/uL Sodium 134 L (137-145) mmol/L Potassium 4.0 (3.5-5.1) mmol/L Chloride 105 (98-107) mmol/L Carbon Dioxide 19 L (22-30) mmol/L Anion Gap 10 mmol/L BUN 17 (9-20) mg/dL Creatinine 1.21 (0.66-1.25) mg/dL Est GFR (CKD-EPI)AfAm 77 (>60 ml/min/1.73 sqM) Est GFR (CKD-EPI)NonAf 67 (>60 ml/min/1.73 sqM) Glucose 154 H (74-99) mg/dL Calcium 8.6 (8.4-10.2) mg/dL Total Bilirubin 1.1 (0.2-1.3) mg/dL AST 22 (17-59) U/L ALT 25 (4-49) U/L Alkaline Phosphatase 224 H (38-126) U/L Total Protein 5.8 L (6.3-8.2) g/dL Albumin 3.2 L (3.5-5.0) g/dL Amylase <30 L (30-110) U/L Lipase 95 (23-300) U/L Disposition Clinical Impression: Abdominal pain, Nausea vomiting and diarrhea Disposition: HOME SELF-CARE Condition: Good Instructions (If sedation given, give patient instructions): Abdominal Pain (ED) Additional Instructions: Follow-up with your primary care. Return to emergency department if symptoms worsen. Take prescribed medication as directed. Please eat a bananas, rice, applesauce and toast diet. Prescriptions: Ondansetron Odt [Zofran Odt] 4 mg PO Q8HR PRN #14 tab PRN Reason: Nausea Is patient prescribed a controlled substance at d/c from ED?: No Referrals: Sujit Cartagena MD [Primary Care Provider] - 1-2 days Time of Disposition: 22:37
[2019-11-22 21:14] LABS: Basophils % (A) 0 %; Eosinophils # (A) 0.1 k/uL (0-0.7); Eosinophils % (A) 1 %; HCT 31.8 % (39.0-53.0); HGB 10.3 gm/dL (13.0-17.5); Lymphocytes # (A) 0.6 k/uL (1.0-4.8); Lymphocytes % (A) 5 %; MCHC 32.5 g/dL (31.0-37.0); MCV 86.3 fL (80.0-100.0); Mean Platelet Volume 7.5; Monocytes # (A) 0.5 k/uL (0-1.0); Monocytes % (A) 4 %; Neutrophils # (A) 12.2 k/uL (1.3-7.7); Neutrophils % (A) 90 %; Platelet Count 292 k/uL (150-450); RBC 3.68 m/uL (4.30-5.90); RDW 14.1 % (11.5-15.5); WBC 13.6 k/uL (3.8-10.6)
[2019-11-22 21:19] LABS: ALT 25 U/L (4-49); AST 22 U/L (17-59); African American GFR (CKD) 77 (>60 ml/min/1.73 sqM); Albumin 3.2 g/dL (3.5-5.0); Alkaline Phosphatase 224 U/L (38-126); Amylase <30 U/L (30-110); Anion Gap 10 mmol/L; Blood Urea Nitrogen 17 mg/dL (9-20); Calcium 8.6 mg/dL (8.4-10.2); Carbon Dioxide 19 mmol/L (22-30); Chloride 105 mmol/L (98-107); Glucose 154 mg/dL (74-99); Non-African American GFR(CKD) 67 (>60 ml/min/1.73 sqM); Sodium 134 mmol/L (137-145); Total Bilirubin 1.1 mg/dL (0.2-1.3); Total Protein 5.8 g/dL (6.3-8.2)
[2019-11-22] MEDS ORDERED: ONDANSETRON 4 MG ODT STARTER PACK 2 TAB BTL PO STA (22:32)
[2019-11-22 22:48] LABS: Appearance,Urine Clear (Clear); Bacteria,Urine Rare /hpf; Bilirubin,Urine Negative (Negative); Blood,Urine Small (Negative); Color,Urine Yellow; Glucose,Urine (UA) Negative (Negative); Ketones,Urine Negative (Negative); Leukocyte Esterase,Urine Large (Negative); Mucus,Urine Rare /hpf; Nitrite,Urine Negative (Negative); Protein,Urine Trace (Negative); RBC,Urine 6 /hpf (0-5); Specific Gravity,Urine 1.012 (1.001-1.035); Urobilinogen,Urine <2.0 mg/dL (<2.0); WBC,Urine 15 /hpf (0-5)
[2019-11-22 22:58] VITALS: BP 142/76; PULSE 76; RESP 16; TEMP 98.4
== END 2019-11-22 22:58 | disposition home or self-care (01) ==
LOC: EC 20:30
DX: R11.2 Nausea with vomiting, unspecified (principal); R19.7 Diarrhea, unspecified; R10.33 Periumbilical pain; D64.9 Anemia, unspecified; E78.5 Hyperlipidemia, unspecified; I11.0 Hypertensive heart disease with heart failure; I50.9 Heart failure, unspecified; G47.30 Sleep apnea, unspecified; M19.90 Unspecified osteoarthritis, unspecified site; Z79.01 Long term (current) use of anticoagulants; Z79.51 Long term (current) use of inhaled steroids; Z79.899 Other long term (current) drug therapy; Z91.041 Radiographic dye allergy status; Z85.828 Personal history of other malignant neoplasm of skin; Z94.0 Kidney transplant status; Z94.83 Pancreas transplant status; Z96.652 Presence of left artificial knee joint; Z98.42 Cataract extraction status, left eye; Z98.41 Cataract extraction status, right eye; Z96.1 Presence of intraocular lens; Z99.89 Dependence on other enabling machines and devices; Z83.3 Family history of diabetes mellitus; Z80.0 Family history of malignant neoplasm of digestive organs
CPT/HCPCS: 36415; 80053; 82150; 83690; 85025; 81001; 87086; 99284; 96374; 96375 ×2; 96361; J2405; S0119; J1170

== ENCOUNTER → 2019-12-29 | Outpatient (CLI) | payer MEDICARE ==
--- NOTE | 2019-12-29 13:47 | CT ---
EXAMINATION TYPE: CT chest wo con DATE OF EXAM: 12/29/2019 COMPARISON: CT chest 07/17/2019. HISTORY: presurgical follow up for history of recent pneumonia CT DLP: 251 mGycm. Automated Exposure Control for Dose Reduction was Utilized. TECHNIQUE: CT scan of the thorax is performed without IV contrast. FINDINGS: LUNGS: The lungs are clear with no consolidation. There is no pleural effusion or pneumothorax seen. The tracheobronchial tree is patent. MEDIASTINUM: Lack of IV contrast is noted to limit evaluation for mediastinal and especially hilar ad enopathy. There are no definitive greater than 1 cm hilar or mediastinal lymph nodes. No cardiomega ly or pericardial effusion is seen. There is calcified coronary artery disease. OTHER: Symmetric bilateral renal atrophy. IMPRESSION: Lungs are well aerated with no evidence of pneumonia.
== END ==
LOC: RADCTMAIN 09:19
PROVIDERS: ATTEND Internal Medicine Pulmonary Disease
DX: C44.90 Unspecified malignant neoplasm of skin, unspecified (principal); J45.40 Moderate persistent asthma, uncomplicated; G47.33 Obstructive sleep apnea (adult) (pediatric); Z79.899 Other long term (current) drug therapy
CPT/HCPCS: 71250

== ENCOUNTER 2020-03-02 23:33 | Observation (INO) | payer MEDICARE ==
[2020-03-02] MEDS ORDERED: IPRATROPIUM-ALBUTEROL 3 ML NEB INHALATION STA (23:57)
--- NOTE | 2020-03-02 23:59 | ED ---
SOB HPI - General Chief Complaint: Shortness of Breath Stated Complaint: Shortness of Breath Time Seen by Provider: 03/02/20 23:52 Source: patient, RN notes reviewed, old records reviewed Mode of arrival: wheelchair - History of Present Illness Initial Comments: This is a 54-year-old male here today presents today for evaluation regards to severe shortness of breath history of cancer skin cancer, getting treatment currently. Patient states Started after treatment today. No fevers no pain. No recent travel history or sick contacts no known history of PE. Patient has had severe us for a stress from pneumonia in the past. MD Complaint: shortness of breath, cough, anxiety -: hour(s) Severity: severe Severity scale (1-10): 8 Consistency: constant Improves With: oxygen, rest Worsens With: exertion, movement Known History Of: congestive heart failure, other (Known cancer) Context: other Associated Symptoms: cough, sputum production, palpitations, diaphoresis Treatments Prior to Arrival: none - Related Data Home Medications Medication Instructions Recorded Confirmed Pravastatin Sodium [Pravachol] 20 mg PO HS 11/23/13 11/15/19 Sodium Bicarbonate Tab 1,300 mg PO TID 11/23/13 11/15/19 Lansoprazole 30 mg PO DAILY 07/14/18 11/15/19 Tacrolimus [Prograf] 1 mg PO QA 07/14/18 11/16/19 Apixaban [Eliquis] 5 mg PO BID 09/18/18 11/15/19 Tamsulosin [Flomax] 0.4 mg PO HS 09/18/18 11/15/19 Ferrous Sulfate [Iron (65 MG 325 mg PO BID 12/17/18 11/15/19 Elemental)] Montelukast [Singulair] 10 mg PO HS 12/17/18 11/15/19 allopurinoL [Zyloprim] 100 mg PO DAILY 12/17/18 11/15/19 calcitrioL [Rocaltrol] 0.25 mcg PO SUTUTHSA 12/17/18 11/15/19 Tacrolimus [Prograf] 1.5 mg PO HS 03/09/19 11/16/19 predniSONE 5 mg PO DAILY 03/09/19 11/15/19 Budesonide [Pulmicort] 0.5 mg INHALATION RT-BID PRN 11/15/19 11/15/19 Ipratropium-Albuterol Nebulize 3 ml INHALATION RT-QID PRN 11/15/19 11/15/19 [Duoneb 0.5 mg-3 mg/3 ml Soln] Labetalol HCl 400 mg PO BID 11/15/19 11/15/19 Niacinamide 500 mg PO BID 11/15/19 11/15/19 amLODIPine [Norvasc] 5 mg PO BID 11/15/19 11/15/19 calcitrioL [Calcitriol] 0.5 mcg PO MOWEFR 11/15/19 11/15/19 Mycophenolate Mofetil [Cellcept] 500 mg PO BID 11/16/19 11/16/19 Previous Rx's Medication Instructions Recorded Cefuroxime Axetil [Ceftin] 500 mg PO BID 3 Days #6 tab 11/17/19 hydrALAZINE HCL [Apresoline] 50 mg PO TID #90 tab 11/17/19 polyethylene glycoL 3350 [Miralax] 17 gm PO BID powd.pack 11/17/19 Ondansetron Odt [Zofran Odt] 4 mg PO Q8HR PRN #14 tab 11/22/19 Allergies Allergy/AdvReac Type Severity Reaction Status Date / Time Iodine and Iodide Containing AdvReac HX OF Verified 11/22/19 20:36 Produc KIDNEY DISEASE Review of Systems ROS Statement: Those systems with pertinent positive or pertinent negative responses have been documented in the HPI. ROS Other: All systems not noted in ROS Statement are negative. Past Medical History Past Medical History: Cancer, Heart Failure, Hyperlipidemia, Hypertension, Osteoarthritis (OA), Renal Disease, Sleep Apnea/CPAP/BIPAP Additional Past Medical History / Comment(s): ARDS, hx of DM was tx for dm from age 9 to age 35(had pancreas transplant), uses cpap machine, basal and squamous cell skin cancer, hx rt elbow broken-(sx), charcots foot, pancreatitis, History of Any Multi-Drug Resistant Organisms: None Reported Past Surgical History: Hernia Repair, Joint Replacement Additional Past Surgical History / Comment(s): kidney and pancreas transplant , L knee replacment, rt elbow sx has 7 screws,cataracts removed-lens implants, laser eye sx for retinopathy, fernando foot sx(rt foot bone gravt and lt foot bone shaved), skin cancer removed on his head, Past Anesthesia/Blood Transfusion Reactions: No Reported Reaction Past Psychological History: No Psychological Hx Reported Smoking Status: Never smoker Past Alcohol Use History: Occasional Past Drug Use History: None Reported - Past Family History Mother Family Medical History: Cancer, Diabetes Mellitus Additional Family Medical History / Comment(s): liver cancer Father Family Medical History: CVA/TIA Additional Family Medical History / Comment(s): was smoker had ctroke in his 30's General Exam General appearance: alert, in no apparent distress Head exam: Present: atraumatic, normocephalic, normal inspection Eye exam: Present: normal appearance, PERRL, EOMI. Absent: scleral icterus, conjunctival injection, periorbital swelling ENT exam: Present: normal exam, mucous membranes moist Neck exam: Present: normal inspection. Absent: tenderness, meningismus, lymphadenopathy Respiratory exam: Present: normal lung sounds bilaterally. Absent: respiratory distress, wheezes, rales, rhonchi, stridor Cardiovascular Exam: Present: regular rate, normal rhythm, normal heart sounds. Absent: systolic murmur, diastolic murmur, rubs, gallop, clicks GI/Abdominal exam: Present: soft, normal bowel sounds. Absent: distended, tenderness, guarding, rebound, rigid Extremities exam: Present: normal inspection, full ROM, normal capillary refill. Absent: tenderness, pedal edema, joint swelling, calf tenderness Back exam: Present: normal inspection Neurological exam: Present: alert, oriented X3, CN II-XII intact Psychiatric exam: Present: normal affect, normal mood Skin exam: Present: warm, dry, intact, normal color. Absent: rash Course Vital Signs 03/02/20 03/03/20 23:44 01:01 Temperature 98.7 F Pulse Rate 86 Respiratory 19 16 Rate Blood Pressure 166/82 O2 Sat by Pulse 91 L Oximetry - Reevaluation(s) Reevaluation #1: 03/02/20 23:59 Medical records reviewed Reevaluation #2: 03/03/20 01:13 Patient is without significant improvement here in the ER Reevaluation #3: 03/03/20 01:13 Patient family informed of results, questions answered - Consultations Consultation #1: Spoke with Dr. Deras will admit this patient Medical Decision Making - Medical Decision Making 54 male DF for persistent shortness of breath found to be significantly hypoxic here in the ER patient has significant CHF, underlying mild COPD will admit for hypoxia - Lab Data Result diagrams: 03/03/20 00:46 Lab Results 03/03/20 Range/Units 00:46 WBC 12.2 H (3.8-10.6) k/uL RBC 3.83 L (4.30-5.90) m/uL Hgb 10.8 L (13.0-17.5) gm/dL Hct 32.9 L (39.0-53.0) % MCV 85.7 (80.0-100.0) fL MCH 28.1 (25.0-35.0) pg MCHC 32.7 (31.0-37.0) g/dL RDW 15.3 (11.5-15.5) % Plt Count 190 (150-450) k/uL Neutrophils % 85 % Lymphocytes % 5 % Monocytes % 9 % Eosinophils % 0 % Basophils % 0 % Neutrophils # 10.3 H (1.3-7.7) k/uL Lymphocytes # 0.6 L (1.0-4.8) k/uL Monocytes # 1.1 H (0-1.0) k/uL Eosinophils # 0.0 (0-0.7) k/uL Basophils # 0.0 (0-0.2) k/uL - EKG Data -: EKG Interpreted by Me (EKG is sinus rhythm 92, GA 160 QRS 82 QTC 40) - Radiology Data Radiology results: report reviewed (Chest x-ray shows CHF and pulmonary edema), image reviewed Critical Care Time Critical Care Time: Yes Total Critical Care Time: 31 Disposition Clinical Impression: CHF exacerbation, COPD exacerbation, Acute pulmonary edema, Congestive heart failure, Hypoxia Disposition: ADMITTED IP TO THIS HOSP Condition: Fair Is patient prescribed a controlled substance at d/c from ED?: No Referrals: Sujit Cartagena MD [Primary Care Provider] - 1-2 days
[2020-03-03] MEDS ORDERED: DIAZEPAM 5 MG/ML 2 ML INJ IVP STA (00:24)
--- NOTE | 2020-03-03 00:24 | XR ---
EXAMINATION TYPE: XR chest 1V portable DATE OF EXAM: 03/03/2020 COMPARISON: 07/02/2019 HISTORY: Short of breath Heart is enlarged. There is pulmonary interstitial edema. There is mild blunting of the costophrenic angles. Bony thorax is intact. IMPRESSION: Cardiomegaly with pulmonary edema and pleural fluid that is consistent with congestive he art failure that appears new compared to old exam.
[2020-03-03 01:04] LABS: Basophils % (A) 0 %; Eosinophils % (A) 0 %; HCT 32.9 % (39.0-53.0); HGB 10.8 gm/dL (13.0-17.5); Lymphocytes # (A) 0.6 k/uL (1.0-4.8); Lymphocytes % (A) 5 %; MCH 28.1 pg (25.0-35.0); MCHC 32.7 g/dL (31.0-37.0); MCV 85.7 fL (80.0-100.0); Mean Platelet Volume 7.1; Monocytes # (A) 1.1 k/uL (0-1.0); Monocytes % (A) 9 %; Neutrophils # (A) 10.3 k/uL (1.3-7.7); Neutrophils % (A) 85 %; Platelet Count 190 k/uL (150-450); RBC 3.83 m/uL (4.30-5.90); RDW 15.3 % (11.5-15.5); WBC 12.2 k/uL (3.8-10.6)
[2020-03-03 01:08] LABS: Partial Thromboplastin Time 26.8 sec (22.0-30.0); Prothrombin Time 10.4 sec (9.0-12.0)
[2020-03-03 01:27] LABS: C Reactive Protein 18.9 mg/L (<10.0); Calcium 9.1 mg/dL (8.4-10.2); Magnesium 1.7 mg/dL (1.6-2.3); Potassium 3.8 mmol/L (3.5-5.1); Total Protein 6.4 g/dL (6.3-8.2)
[2020-03-03] MEDS: FUROSEMIDE 10 MG/ML 4 ML VIAL IV SCH ×3 (01:47→17:25)
[2020-03-03] MEDS: IPRATROPIUM-ALBUTEROL 3 ML NEB INHALATION SCH ×5 (04:12→19:57)
[2020-03-03] MEDS ORDERED: TACROLIMUS 1 MG CAP PO SCH (09:00)
[2020-03-03] MEDS ORDERED: NIACINAMIDE 500 MG PO SCH (09:00)
[2020-03-03 09:23] LABS: Ferritin 61.6 ng/mL (22.0-322.0)
[2020-03-03] MEDS: SODIUM BICARBONATE TAB 650 MG TAB PO SCH ×3 (10:03→20:51)
[2020-03-03] MEDS: allopurinoL 100 MG TAB PO SCH (10:03)
[2020-03-03] MEDS: hydrALAZINE HCL 50 MG TAB PO SCH ×3 (10:03→20:52)
[2020-03-03] MEDS: APIXABAN 5 MG TAB PO SCH ×2 (10:03→20:52)
[2020-03-03] MEDS: FERROUS SULFATE 325 MG TAB PO SCH ×2 (10:03→14:20)
[2020-03-03] MEDS: LABETALOL 200 MG TAB PO SCH ×2 (10:04→20:52)
[2020-03-03] MEDS: amLODIPine 5 MG TAB PO SCH ×2 (10:04→20:52)
[2020-03-03] MEDS: predniSONE 5 MG TAB PO SCH (10:04)
--- NOTE | 2020-03-03 10:04 | ECHOF ---
Referral Reason:Heart Failure MEASUREMENTS -------- HEIGHT: 142.2 cm WEIGHT: 68.0 kg BP: 163/85 RVIDd: 3.6 cm (< 3.3) IVSd: 1.4 cm (0.6 - 1.1) LVIDd: 4.2 cm (3.9 - 5.3) LVPWd: 1.4 cm (0.6 - 1.1) IVSs: 1.9 cm LVIDs: 2.6 cm LVPWs: 1.7 cm LA Diam: 3.8 cm (2.7 - 3.8) LAESV Index (A-L): 26.26 ml/m Ao Diam: 3.2 cm (2.0 - 3.7) AV Cusp: 2.1 cm (1.5 - 2.6) MV EXCURSION: 19.523 mm (> 18.000) MV EF SLOPE: 71 mm/s (70 - 150) EPSS: 0.6 cm MV E Anthony: 1.41 m/s MV DecT: 210 ms MV A Anthony: 0.70 m/s MV E/A Ratio: 2.01 RAP: 5.00 mmHg RVSP: 35.40 mmHg FINDINGS -------- Sinus rhythm. This was a technically good study. The left ventricular size is normal. There is moderate concentric left ventricular hypertrophy. O verall left ventricular systolic function is normal with, an EF between 55 - 60 %. The right ventricle is mildly enlarged. Normal LA size by volume 22+/-6 ml/m2. The right atrium is normal in size. Interatrial and interventricular septum intact. The aortic valve is trileaflet and appears structurally normal. Mild mitral regurgitation is present. Mild tricuspid regurgitation present. There is mild pulmonary hypertension. The right ventricular systolic pressure, as measured by Doppler, is 35.40mmHg. Trace/mild (physiologic) pulmonic regurgitation. The aortic root size is normal. Normal inferior vena cava with normal inspiratory collapse consistent with estimated right atrial pre ssure of 5 mmHg. There is no pericardial effusion. CONCLUSIONS -------- 1. The left ventricular size is normal. 2. There is moderate concentric left ventricular hypertrophy. 3. Overall left ventricular systolic function is normal with, an EF between 55 - 60 %. 4. The right ventricle is mildly enlarged. 5. Mild mitral regurgitation is present. 6. Mild tricuspid regurgitation present. 7. There is mild pulmonary hypertension. 8. Trace/mild (physiologic) pulmonic regurgitation. 9. There is no pericardial effusion. [employer] SUPERVISOR: Albina Kramer RDCS
[2020-03-03] MEDS: PANTOPRAZOLE 40 MG TABLET PO SCH (10:23)
[2020-03-03] MEDS: TACROLIMUS 0.5 MG CAP PO SCH (10:25)
[2020-03-03 12:38] VITALS: BMI 23.5
--- NOTE | 2020-03-03 12:49 | P.CNPUL ---
History of Present Illness Consult date: 03/03/20 Requesting physician: Tong Deras Reason for consult: dyspnea, abnormal CXR/CT (Cardiomegaly with pulmonary edema) Chief complaint: Shortness of breath History of present illness: This is a very pleasant 54-year-old gentleman who follows with Dr. Cartagena as his primary care provider. He has a history of diabetes mellitus since age 9. He is status post kidney transplant at [facility] and 1988 and 1990. He is also status post pancreatic transplant at the [facility] in 2000 He had been on CellCept in the past but he had developed skin cancers. He is currently on Prograf and prednisone. 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 Currently undergoing radiation treatment. He also has a history of hypertension, hyperlipidemia, obstructive sleep apnea utilizing CPAP in the outpatient setting. He is a lifelong nonsmoker. He presented here to the emergency room last evening with complaints of increasing shortness of breath. Chest x-ray revealed evidence of cardiomegaly and pulmonary edema with pleural fluid consistent with congestive heart failure. Echocardiogram revealed preserved left ventricular systolic function with ejec tion fraction 55-60%. He had undergone a computed tomography scan of the chest and December of this year that revealed no acute pulmonary process. He is currently receiving IV diuretics. Current creatinine 1.45. ProBNP 3660. Troponin negative. Pro-calcitonin pending. White count 12.2. Hemoglobin 10.8. He is seen today in consultation on the regular medical floor. He is resting quite comfortably in bed. Awake and alert in no acute distress. He has his home CPAP that he is using here. He has been compliant. He is maintaining O2 saturations in the 90s on room air now. He is afebrile. He's been initiated on bronchodilators, IV diuretics. Review of Systems REVIEW OF SYSTEMS: CONSTITUTIONAL: Denies any recent significant weight loss or weight gain. EYES: Denies change in vision. EARS, NOSE, MOUTH, THROAT: Denies headaches, denies sore throat. CARDIOVASCULAR: Denies chest pain, palpitations or syncopal episodes. RESPIRATORY: Positive for shortness of breath, cough, congestion no hemoptysis. GASTROINTESTINAL: Denies change in appetite, denies abdominal pain GENITOURINARY: Denies hematuria, denies infections. MUSKULOSKELETAL: Denies pain, denies swelling. INTEGUMENTARY: Currently receiving deviation treatment for squamous cell carcinoma of the left neck. NEUROLOGICAL: Denies recent memory loss, no recent seizure activity. PSYCHIATRIC: Denies anxiety, denies depression. HEMATOLOGIC/LYMPHATIC: Denies anemia, denies enlarged lymph nodes. Past Medical History Past Medical History: Cancer, Heart Failure, Hyperlipidemia, Hypertension, Osteoarthritis (OA), Renal Disease, Sleep Apnea/CPAP/BIPAP Additional Past Medical History / Comment(s): ARDS, hx of DM was tx for dm from age 9 to age 35(had pancreas transplant), uses cpap machine, basal and squamous cell skin cancer, hx rt elbow broken-(sx), charcots foot, pancreatitis, History of Any Multi-Drug Resistant Organisms: None Reported Past Surgical History: Hernia Repair, Joint Replacement Additional Past Surgical History / Comment(s): kidney and pancreas transplant , L knee replacment, rt elbow sx has 7 screws,cataracts removed-lens implants, laser eye sx for retinopathy, fernando foot sx(rt foot bone gravt and lt foot bone shaved), skin cancer removed on his head, Past Anesthesia/Blood Transfusion Reactions: No Reported Reaction Past Psychological History: No Psychological Hx Reported Smoking Status: Never smoker Past Alcohol Use History: Occasional Past Drug Use History: None Reported - Past Family History Mother Family Medical History: Cancer, Diabetes Mellitus Additional Family Medical History / Comment(s): liver cancer Father Family Medical History: CVA/TIA Additional Family Medical History / Comment(s): was smoker had ctroke in his 30's Medications and Allergies Home Medications Medication Instructions Recorded Confirmed Type Pravastatin Sodium [Pravachol] 20 mg PO HS 11/23/13 03/03/20 History Sodium Bicarbonate Tab 650 mg PO TID 11/23/13 03/03/20 History Lansoprazole 30 mg PO DAILY 07/14/18 03/03/20 History Apixaban [Eliquis] 5 mg PO BID 09/18/18 03/03/20 History Tamsulosin [Flomax] 0.4 mg PO HS 09/18/18 03/03/20 History Ferrous Sulfate [Iron (65 MG 325 mg PO BID 12/17/18 03/03/20 History Elemental)] Montelukast [Singulair] 10 mg PO HS 12/17/18 03/03/20 History allopurinoL [Zyloprim] 100 mg PO DAILY 12/17/18 03/03/20 History calcitrioL [Rocaltrol] 0.25 mcg PO SUTUTHSA 12/17/18 03/03/20 History predniSONE 5 mg PO DAILY 03/09/19 03/03/20 History Labetalol HCl 400 mg PO BID 11/15/19 03/03/20 History amLODIPine [Norvasc] 5 mg PO BID 11/15/19 03/03/20 History hydrALAZINE HCL [Apresoline] 50 mg PO TID #90 tab 11/17/19 03/03/20 Rx Calcitriol [Rocaltrol] 0.5 mcg PO MOWEFR 03/03/20 03/03/20 History Niacinamide 500 mg PO BID 03/03/20 03/03/20 History Tacrolimus [Prograf] 0.5 mg PO BID 03/03/20 03/03/20 History Allergies Allergy/AdvReac Type Severity Reaction Status Date / Time Iodine and Iodide Containing AdvReac HX OF Verified 11/22/19 20:36 Produc KIDNEY DISEASE Physical Exam Vitals: Vital Signs Temp Pulse Pulse Resp BP BP Pulse Ox 03/03/20 08:00 16 03/03/20 07:33 98.9 F 83 16 156/81 94 L 03/03/20 03:50 96 03/03/20 03:13 98.4 F 85 16 163/86 96 03/03/20 01:39 99.4 F 96 18 161/77 96 03/03/20 01:24 95 03/03/20 01:01 16 03/02/20 23:44 98.7 F 86 19 166/82 91 L Intake and Output 03/02/20 03/03/20 03/03/20 22:59 06:59 14:59 Intake Total 250 Balance 250 Intake: Oral 250 Other: # Voids 1 1 Weight 68.039 kg GENERAL EXAM: Alert, active, pleasant 54-year-old gentleman, on room air, comfortable in no apparent distress. HEAD: Normocephalic. EYES: Normal reaction of pupils, equal size. NOSE: Clear with pink turbinates. THROAT: No erythema or exudates. NECK: No masses, no JVD. CHEST: No chest wall deformity. LUNGS: Equal air entry with crackles in the bilateral posterior bases. CVS: S1 and S2 normal with no audible murmur, regular rhythm. ABDOMEN: No hepatosplenomegaly, normal bowel sounds, no guarding or rigidity. SPINE: No scoliosis or deformity SKIN: No rashes, changes from recent skin biopsies and radiation treatments to the head and neck CENTRAL NERVOUS SYSTEM: No focal deficits, tone is normal in all 4 extremities. EXTREMITIES: There is no peripheral edema. No clubbing, no cyanosis. Peripheral pulses are intact. Results - Laboratory Findings CBC and BMP: 03/03/20 00:46 03/03/20 00:46 PT/INR, D-dimer PT 10.4 sec (9.0-12.0) 03/03/20 00:46 INR 1.0 (<1.2) 03/03/20 00:46 Abnormal lab findings: Abnormal Labs 03/03/20 03/03/20 00:46 00:46 WBC 12.2 H RBC 3.83 L Hgb 10.8 L Hct 32.9 L Neutrophils # 10.3 H Lymphocytes # 0.6 L Monocytes # 1.1 H Sodium 136 L BUN 28 H Creatinine 1.45 H Glucose 111 H Alkaline Phosphatase 186 H C-Reactive Protein 18.9 H - Diagnostic Findings Chest x-ray: image reviewed (Cardiomegaly with pulmonary edema) Assessment and Plan Assessment: 1 Acute hypoxic respiratory failure secondary to an acute exacerbation of diastolic congestive heart failure 2 Immunocompromised patient with a history of bilateral kidney transplant in 1988 and 1990. Status post pancreatic transplant in 2000. Previously been on CellCept not on Prograf and prednisone. 3 Basal and squamous cell skin cancer currently receiving radiation treatments to the left neck 4 Obstructive sleep apnea utilizing CPAP in the outpatient setting 5 Hypertension 6 Hyperlipidemia Plan: The patient was seen and evaluated by Dr. Pillai Chest x-ray and labs reviewed Awaiting pro calcitonin level Continue IV diuretics Continue bronchodilators Continue home CPAP at night Repeat chest x-ray in a.m. We will continue to follow I, the cosigning physician, performed a history & physical examination of the patient. Lungs sounds with crackles in the bilateral posterior bases. Maintaining good O2 saturations in the 90s on room air. I discussed the assessment and plan of care with my nurse practitioner, Leslie Arboleda. I attest to the above consultation as dictated by her. Time with Patient: Greater than 30
--- NOTE | 2020-03-03 13:42 | P.CRDCN ---
History of Present Illness History of present illness: HISTORY OF PRESENTING ILLNESS This is a pleasant 54-year-old male past medical history significant for dyslipidemia, paroxysmal atrial fibrillation on Eliquis, diabetes mellitus status post pancreas transplant, chronic kidney disease status post kidney transplantation and obstructive sleep apnea. He follows in the office with Dr. Jordan. We have been asked to see in consultation for congestive heart failure. He presented to the hospital with symptoms of shortness of breath after undergoing radiation treatment for squamous cell skin cancer of the neck and head. He is seen and examined resting comfortably laying flat in bed in no acute distress. On admission to the hospital he was initiated on IV Lasix. He states he is feeling much better since admission. He denies chest pain, dizziness or palpitations. Echocardiogram obtained reveals preserved LV systolic function with ejection fraction 55-60%, mild MR, mild TR and mild pulmonary hypertension with an RVSP of 35 mmHg. DIAGNOSTICS EKG reveals sinus mechanism with no acute ischemic changes. Chest xray reveals cardiomegaly with pulmonary edema and pleural fluid consistent with congestive heart failure. Laboratory reviewed, WBC 12.2, hemoglobin 10.8, platelets 190, sodium 136, potassium 3.8, creatinine 1.45, magnesium 1.7, alkaline phosphate 186, cardiac enzymes negative 2, NT proBNP 3660 and pro-calcitonin 0.1. Current cardiac medications include pravastatin 20 mg at bedtime, amlodipine 5 mg twice a day, hydralazine 50 mg 3 times a day, Eliquis 5 mg twice a day and labetalol 400 mg twice a day. REVIEW OF SYSTEMS At the time of my exam: CONSTITUTIONAL: Denies fever or chills. CARDIOVASCULAR: Denies chest pain, shortness of breath, orthopnea, PND or palpitations. RESPIRATORY: Denies cough. GASTROINTESTINAL: Denies abdominal pain, diarrhea, constipation, nausea or vomiting. MUSCULOSKELETAL: Denies myalgias. NEUROLOGIC: Denies numbness, tingling or weakness. ENDOCRINE: Denies fatigue, weight change, polydipsia or polyurina. GENITOURINARY: Denies burning, hematuria or urgency with micturation. HEMATOLOGIC: Denies history of anemia or bleeding. PHYSICAL EXAMINATION Blood pressure 156/81 heart rate 83 afebrile and maintaining oxygen saturation on room air. CONSTITUTIONAL: No apparent distress. HEENT: Head is normocephalic. Pupils are equal, round. Sclerae anicteric. Mucous membranes of the mouth are moist. No JVD. No carotid bruit. CHEST EXAMINATION: Lungs are clear to auscultation. No chest wall tenderness is noted on palpation or with deep breathing. HEART EXAMINATION: Regular rate and rhythm. S1, S2 heard. Short systolic ejection murmur at the base, no gallops or rub. ABDOMEN: Soft, nontender. Positive bowel sounds. EXTREMITIES: 2+ peripheral pulses, trace bilateral lower extremity pitting edema and no calf tenderness. NEUROLOGIC EXAMINATION: Patient is awake, alert and oriented x3. ASSESSMENT Acute diastolic heart failure Leukocytosis Paroxysmal atrial fibrillation on long-term anticoagulation, currently maintaining sinus mechanism Squamous cell skin cancer Hypertension Dyslipidemia Diabetes mellitus Chronic kidney disease status post renal transplant History of pancreatic transplant PLAN Breathing has improved since admission on IV diuresis. Transition to oral Lasix 40 mg tomorrow. Initiate Aldactone 25 mg daily. Repeat chest x-ray in the morning. Follow renal function and electrolytes in the morning. Thank you kindly for this consultation. Nurse Practitioner note has been reviewed, I agree with a documented findings and plan of care. Patient was seen and examined. Past Medical History Past Medical History: Cancer, Heart Failure, Hyperlipidemia, Hypertension, Osteoarthritis (OA), Renal Disease, Sleep Apnea/CPAP/BIPAP Additional Past Medical History / Comment(s): ARDS, hx of DM was tx for dm from age 9 to age 35(had pancreas transplant), uses cpap machine, basal and squamous cell skin cancer, hx rt elbow broken-(sx), charcots foot, pancreatitis, History of Any Multi-Drug Resistant Organisms: None Reported Past Surgical History: Hernia Repair, Joint Replacement Additional Past Surgical History / Comment(s): kidney and pancreas transplant , L knee replacment, rt elbow sx has 7 screws,cataracts removed-lens implants, laser eye sx for retinopathy, fernando foot sx(rt foot bone gravt and lt foot bone shaved), skin cancer removed on his head, Past Anesthesia/Blood Transfusion Reactions: No Reported Reaction Past Psychological History: No Psychological Hx Reported Smoking Status: Never smoker Past Alcohol Use History: Occasional Past Drug Use History: None Reported - Past Family History Mother Family Medical History: Cancer, Diabetes Mellitus Additional Family Medical History / Comment(s): liver cancer Father Family Medical History: CVA/TIA Additional Family Medical History / Comment(s): was smoker had ctroke in his 30's Medications and Allergies Home Medications Medication Instructions Recorded Confirmed Type Pravastatin Sodium [Pravachol] 20 mg PO HS 11/23/13 03/03/20 History Sodium Bicarbonate Tab 650 mg PO TID 11/23/13 03/03/20 History Lansoprazole 30 mg PO DAILY 07/14/18 03/03/20 History Apixaban [Eliquis] 5 mg PO BID 09/18/18 03/03/20 History Tamsulosin [Flomax] 0.4 mg PO HS 09/18/18 03/03/20 History Ferrous Sulfate [Iron (65 MG 325 mg PO BID 12/17/18 03/03/20 History Elemental)] Montelukast [Singulair] 10 mg PO HS 12/17/18 03/03/20 History allopurinoL [Zyloprim] 100 mg PO DAILY 12/17/18 03/03/20 History calcitrioL [Rocaltrol] 0.25 mcg PO SUTUTHSA 12/17/18 03/03/20 History predniSONE 5 mg PO DAILY 03/09/19 03/03/20 History Labetalol HCl 400 mg PO BID 11/15/19 03/03/20 History amLODIPine [Norvasc] 5 mg PO BID 11/15/19 03/03/20 History hydrALAZINE HCL [Apresoline] 50 mg PO TID #90 tab 11/17/19 03/03/20 Rx Calcitriol [Rocaltrol] 0.5 mcg PO MOWEFR 03/03/20 03/03/20 History Niacinamide 500 mg PO BID 03/03/20 03/03/20 History Tacrolimus [Prograf] 0.5 mg PO BID 03/03/20 03/03/20 History Allergies Allergy/AdvReac Type Severity Reaction Status Date / Time Iodine and Iodide Containing AdvReac HX OF Verified 11/22/19 20:36 Produc KIDNEY DISEASE Physical Exam Vitals: Vital Signs Temp Pulse Pulse Resp BP BP Pulse Ox 03/03/20 08:00 16 03/03/20 07:33 98.9 F 83 16 156/81 94 L 03/03/20 03:50 96 03/03/20 03:13 98.4 F 85 16 163/86 96 03/03/20 01:39 99.4 F 96 18 161/77 96 03/03/20 01:24 95 03/03/20 01:01 16 03/02/20 23:44 98.7 F 86 19 166/82 91 L Intake and Output 03/02/20 03/03/20 03/03/20 22:59 06:59 14:59 Intake Total 250 Balance 250 Intake: Oral 250 Other: # Voids 1 1 Weight 68.039 kg 68.039 kg Results 03/03/20 00:46 03/03/20 00:46 Cardiac Enzymes 03/03/20 03/03/20 03/03/20 Range/Units 00:46 01:46 04:24 AST 55 (17-59) U/L Lactate Dehydrogenase 581 (313-618) U/L Troponin I <0.012 <0.012 (0.000-0.034) ng/mL Coagulation 03/03/20 Range/Units 00:46 PT 10.4 (9.0-12.0) sec APTT 26.8 (22.0-30.0) sec CBC 03/03/20 Range/Units 00:46 WBC 12.2 H (3.8-10.6) k/uL RBC 3.83 L (4.30-5.90) m/uL Hgb 10.8 L (13.0-17.5) gm/dL Hct 32.9 L (39.0-53.0) % Plt Count 190 (150-450) k/uL Comprehensive Metabolic Panel 03/03/20 Range/Units 00:46 Sodium 136 L (137-145) mmol/L Potassium 3.8 (3.5-5.1) mmol/L Chloride 107 (98-107) mmol/L Carbon Dioxide 22 (22-30) mmol/L BUN 28 H (9-20) mg/dL Creatinine 1.45 H (0.66-1.25) mg/dL Glucose 111 H (74-99) mg/dL Calcium 9.1 (8.4-10.2) mg/dL AST 55 (17-59) U/L ALT 47 (4-49) U/L Alkaline Phosphatase 186 H (38-126) U/L Total Protein 6.4 (6.3-8.2) g/dL Albumin 4.0 (3.5-5.0) g/dL Current Medications Generic Name Dose Route Start Last Admin Trade Name Freq PRN Reason Stop Dose Admin Albuterol/Ipratropium 3 ml 03/03/20 04:00 03/03/20 11:12 Ipratropium-Albuterol 3 Ml Neb INHALATION Not Given RT-Q4H NINA Allopurinol 100 mg 03/03/20 09:00 03/03/20 10:03 Allopurinol 100 Mg Tab PO 100 mg DAILY NINA Administration Amlodipine Besylate 5 mg 03/03/20 09:00 03/03/20 10:04 Amlodipine 5 Mg Tab PO 5 mg BID NINA Administration Apixaban 5 mg 03/03/20 09:00 03/03/20 10:03 Apixaban 5 Mg Tab PO 5 mg BID NINA Administration Calcitriol 0.5 mcg 03/04/20 09:00 03/03/20 10:04 Calcitriol 0.25 Mcg Cap PO 0.5 mcg MOWEFR NINA Administration Calcitriol 0.25 mcg 03/03/20 09:00 03/03/20 10:23 Calcitriol 0.25 Mcg Cap PO 0.25 mcg SUTUTHSA NINA Administration Ferrous Sulfate 325 mg 03/03/20 09:00 03/03/20 10:03 Ferrous Sulfate 325 Mg Tab PO 325 mg BID@0900,1400 NINA Administration Furosemide 40 mg 03/03/20 01:30 03/03/20 08:47 Furosemide 10 Mg/Ml 4 Ml Vial IV 40 mg Q8H NINA Administration Hydralazine HCl 50 mg 03/03/20 09:00 03/03/20 10:03 Hydralazine Hcl 50 Mg Tab PO 50 mg TID@0900,1400,2200 NINA Administration Labetalol HCl 400 mg 03/03/20 09:00 03/03/20 10:04 Labetalol 200 Mg Tab PO 400 mg BID NINA Administration Montelukast Sodium 10 mg 03/03/20 21:00 Montelukast 10 Mg Tab PO HS NINA Pantoprazole Sodium 40 mg 03/03/20 09:00 03/03/20 10:23 Pantoprazole 40 Mg Tablet PO 40 mg [id number] NINA Administration Pravastatin Sodium 20 mg 03/03/20 21:00 Pravastatin Sodium 20 Mg Tab PO [id number] [facility] Prednisone 5 mg 03/03/20 09:00 03/03/20 10:04 Prednisone 5 Mg Tab PO 5 mg DAILY NINA Administration Sodium Bicarbonate 1,300 mg 03/03/20 09:00 03/03/20 10:03 Sodium Bicarbonate Tab 650 Mg Tab PO 1,300 mg TID@0900,1400,2200 NINA Administration Spironolactone 25 mg 03/03/20 12:15 Spironolactone 25 Mg Tab PO DAILY NINA Tacrolimus 0.5 mg 03/03/20 21:00 Tacrolimus 0.5 Mg Cap PO HS NINA Tacrolimus 0.5 mg 03/03/20 10:30 03/03/20 10:25 Tacrolimus 0.5 Mg Cap PO 0.5 mg QAM NINA Administration Tamsulosin HCl 0.4 mg 03/03/20 21:00 Tamsulosin 0.4 Mg Cap.Er.24h PO HS NINA Intake and Output 03/02/20 03/03/20 03/03/20 22:59 06:59 14:59 Intake Total 250 Balance 250 Intake: Oral 250 Other: # Voids 1 1 Weight 68.039 kg 68.039 kg Patient Weight 03/04/20 06:59 Weight 68.039 kg 03/03/20 00:46 03/03/20 00:46
--- NOTE | 2020-03-03 14:02 | P.HPIM ---
History of Present Illness H&P Date: 03/03/20 Chief Complaint: STONE HISTORY OF PRESENT ILLNESS This is a 54-year-old male patient of , Dr. Adhikari, Dr. 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 Serrano radiation oncologist at [facility], obstructive sleep apnea on BiPAP, hypertension, hyperlipidemia, benign prostatic hypertrophy. Patient states that he was struggling to breathe. It was a sudden onset yesterday. He denies any chest pain or palpitations. He denies any weight gain. He has not been on any diuretics at home. He denies having any fever or chills. He denies any exposure to potential Covid patients. Patient came into [facility] emergency center for evaluation. Patient was afebrile, heart rate 86, blood pressure 166/82, pulse ox 91% on room air. EKG reveals sinus rhythm with no acute ST changes. Chest xray reveals cardiomegaly with pulmonary edema and pleural fluid consistent with congestive heart failure. WBC 12.2, hemoglobin 10.8, platelets 190, sodium 136, potassium 3.8, creatinine 1.45, magnesium 1.7, alkaline phosphate 186, troponins negative 2, NT proBNP 3660 and pro-calcitonin 0.1. Patient has been admitted to the [facility] floor and consults with pulmonary medicine and cardiology. Echocardiogram reveals EF of 55-60% with mild mitral regurgitation, mild tri cuspid regurgitation, mild pulmonary REVIEW OF SYSTEMS Constitutional: No fever, no chills, no night sweats. No weight change. No weakness, fatigue or lethargy. No daytime sleepiness. EENT: No headache. No blurred vision or double vision, no loss of vision. No loss of Hearing, no ringing in the ears, no dizziness. No nasal drainage or congestion. No epistaxis. No sore throat. Lungs: No shortness of breath, cough, no sputum production. No wheezing. Cardiovascular: No chest pain, no lower extremity edema. No palpitations. No paroxysmal nocturnal dyspnea. No orthopnea. No lightheadedness or dizziness. No syncopal episodes. Abdominal: No abdominal pain. No nausea, vomiting. No diarrhea. No constipation. No bloody or tarry stools.. No loss of appetite. Genitourinary: No dysuria, increased frequency, urgency. No urinary retention. Musculoskeletal: No myalgias. No muscle weakness, no gait dysfunction, no frequent falls. No back pain. No neck pain. Integumentary: No wounds, no lesions. No rash or pruritus. No unusual bruising. No change in hair or nails. Neurologic: No aphasia. No facial droop. No change in mentation. No head injury. No headache. No paralysis. No paresthesia. Psychiatric: No depression. No anxiety. No mood swings. Endocrine: No abnormal blood sugars. No weight change. No excessive sweating or thirst. No cold intolerance. SOCIAL HISTORY The patient is a lifelong nonsmoker. He drinks alcohol occasionally. No marijuana or illicit drug use. He is and lives at home with his .. FAMILY HISTORY Mother at age 75 from liver cancer. Father is alive at age 85 with no major medical problems. Patient has 2 brothers and 3 sisters with no major m edical problems. Patient has one son with no major medical problems.. PHYSICAL EXAMINATION Gen: This is a 54-year-old male. He is resting in bed appears to be comfortable. No respiratory distress is noted. HEENT: Head is atraumatic, normocephalic. Pupils equal, round. Sclerae is anicteric. NECK: Supple. No JVD. No lymphadenopathy. No thyromegaly. LUNGS: Clear to auscultation. No wheezes or rhonchi. No intercostal retractions. HEART: Regular rate and rhythm. Short systolic ejection murmur. ABDOMEN: Soft. Bowel sounds are present. No masses. No tenderness. EXTREMITIES: Trace bilateral pedal edema. No calf tenderness. NEUROLOGICAL: Patient is awake, alert and oriented x3. Cranial nerves 2 through 12 are grossly intact. ASSESSMENT AND PLAN 1. Acute diastolic heart failure. Cardiology consult appreciated. Aldactone h as been added. IV Lasix changed to oral for the morning, repeat chest x-ray. Monitor I&O and daily weights, monitor renal function 2. Paroxysmal atrial fibrillation. Continue eliquis 5 mg twice daily, labetalol 4 mg twice daily. 3. Squamous cell skin cancer under the care of radiation oncology at [facility]. 4. Hypertension. Continue Norvasc 5 mg twice daily, hydralazine 50 mg 3 times daily, labetalol 5. Hyperlipidemia. Continue statin. 6. Obstructive sleep apnea. Continue BiPAP. 7. Diabetes mellitus type 1 status post pancreas. Stable. 8. Pancreas and kidney transplant. Consult with nephrology. Continue prednisone 5 mg daily and Prograf 0.5 mg twice daily 9. Benign prostatic hypertrophy. Continue Flomax 0.4 mg daily. 10. DVT prophylaxis. Eliquis. 11. GI prophylaxis. Protonix. Patient will be admitted to the hospital for a minimum of 2 night stay. Discharge plan: Return home Impression and plan of care have been directed as dictated by the signing physi cian. hCata Garcia nurse practitioner acting as scribe for signing physician. Past Medical History Past Medical History: Cancer, Heart Failure, Hyperlipidemia, Hypertension, Osteoarthritis (OA), Renal Disease, Sleep Apnea/CPAP/BIPAP Additional Past Medical History / Comment(s): ARDS, hx of DM was tx for dm from age 9 to age 35(had pancreas transplant), uses cpap machine, basal and squamous cell skin cancer, hx rt elbow broken-(sx), charcots foot, pancreatitis, History of Any Multi-Drug Resistant Organisms: None Reported Past Surgical History: Hernia Repair, Joint Replacement Additional Past Surgical History / Comment(s): kidney and pancreas transplant , L knee replacment, rt elbow sx has 7 screws,cataracts removed-lens implants, laser eye sx for retinopathy, fernando foot sx(rt foot bone gravt and lt foot bone shaved), skin cancer removed on his head, Past Anesthesia/Blood Transfusion Reactions: No Reported Reaction Past Psychological History: No Psychological Hx Reported Smoking Status: Never smoker Past Alcohol Use History: Occasional Past Drug Use History: None Reported - Past Family History Mother Family Medical History: Cancer, Diabetes Mellitus Additional Family Medical History / Comment(s): liver cancer Father Family Medical History: CVA/TIA Additional Family Medical History / Comment(s): was smoker had ctroke in his 30's Medications and Allergies Home Medications Medication Instructions Recorded Confirmed Type Pravastatin Sodium [Pravachol] 20 mg PO HS 11/23/13 03/03/20 History Sodium Bicarbonate Tab 650 mg PO TID 11/23/13 03/03/20 History Lansoprazole 30 mg PO DAILY 07/14/18 03/03/20 History Apixaban [Eliquis] 5 mg PO BID 09/18/18 03/03/20 History Tamsulosin [Flomax] 0.4 mg PO HS 09/18/18 03/03/20 History Ferrous Sulfate [Iron (65 MG 325 mg PO BID 12/17/18 03/03/20 History Elemental)] Montelukast [Singulair] 10 mg PO HS 12/17/18 03/03/20 History allopurinoL [Zyloprim] 100 mg PO DAILY 12/17/18 03/03/20 History calcitrioL [Rocaltrol] 0.25 mcg PO SUTUTHSA 12/17/18 03/03/20 History predniSONE 5 mg PO DAILY 03/09/19 03/03/20 History Labetalol HCl 400 mg PO BID 11/15/19 03/03/20 History amLODIPine [Norvasc] 5 mg PO BID 11/15/19 03/03/20 History hydrALAZINE HCL [Apresoline] 50 mg PO TID #90 tab 11/17/19 03/03/20 Rx Calcitriol [Rocaltrol] 0.5 mcg PO MOWEFR 03/03/20 03/03/20 History Niacinamide 500 mg PO BID 03/03/20 03/03/20 History Tacrolimus [Prograf] 0.5 mg PO BID 03/03/20 03/03/20 History Allergies Allergy/AdvReac Type Severity Reaction Status Date / Time Iodine and Iodide Containing AdvReac HX OF Verified 11/22/19 20:36 Produc KIDNEY DISEASE Physical Exam Vitals: Vital Signs Temp Pulse Pulse Resp BP BP Pulse Ox 03/03/20 07:33 98.9 F 83 16 156/81 94 L 03/03/20 03:50 96 03/03/20 03:13 98.4 F 85 16 163/86 96 03/03/20 01:39 99.4 F 96 18 161/77 96 03/03/20 01:24 95 03/03/20 01:01 16 03/02/20 23:44 98.7 F 86 19 166/82 91 L Intake and Output 03/02/20 03/03/20 03/03/20 22:59 06:59 14:59 Other: # Voids 1 Weight 68.039 kg Results CBC & Chem 7: 03/03/20 00:46 03/03/20 00:46 Labs: Abnormal Lab Results - Last 24 Hours (Table) 03/03/20 03/03/20 Range/Units 00:46 00:46 WBC 12.2 H (3.8-10.6) k/uL RBC 3.83 L (4.30-5.90) m/uL Hgb 10.8 L (13.0-17.5) gm/dL Hct 32.9 L (39.0-53.0) % Neutrophils # 10.3 H (1.3-7.7) k/uL Lymphocytes # 0.6 L (1.0-4.8) k/uL Monocytes # 1.1 H (0-1.0) k/uL Sodium 136 L (137-145) mmol/L BUN 28 H (9-20) mg/dL Creatinine 1.45 H (0.66-1.25) mg/dL Glucose 111 H (74-99) mg/dL Alkaline Phosphatase 186 H (38-126) U/L C-Reactive Protein 18.9 H (<10.0) mg/L Thrombosis Risk Factor Assmnt - Choose All That Apply Any of the Below Risk Factors Present?: Yes Each Factor Represents 1 point: Age 41-60 years Thrombosis Risk Factor Assessment Total Risk Factor Score: 1 Thrombosis Risk Factor Assessment Level: Low Risk
[2020-03-03] MEDS: SPIRONOLACTONE 25 MG TAB PO SCH (14:20)
--- NOTE | 2020-03-03 18:09 | CONS ---
CONSULTATION REASON FOR CONSULT: History of renal transplant and pancreas transplant. HISTORY OF PRESENT ILLNESS: Patient is a 54-year-old male with history of living-related renal transplant in 1988 followed by a second transplant in 2000. The first one was from his mother and the second one from his brother. The patient also had a pancreatic transplant in 2000. His baseline creatinine is about 1 to 1.2 mg/dL. He was admitted to the hospital with complaints of increased shortness of breath. He did admit to increased fluid intake for about a month after surgery for parotid gland removal for oral cancer. Patient normally does not take any diuretics at home. He denies any history of CHF previously. No chest pains. Good urine output. Serum creatinine at 1.45 mg/dL. It was at 1.2 in November of 2019. PAST MEDICAL HISTORY: Significant for end-stage renal disease, history of renal transplant, chronic allograft nephropathy, hyperlipidemia, hypertension, osteoarthritis, multiple skin cancers, mostly squamous cell, history of Charcot joint, previous history of pancreatitis. PAST SURGICAL HISTORY: Kidney and pancreas transplant and a previous kidney transplant as well. Left knee arthroplasty, right elbow surgery, laser surgery for cataracts, eye surgery for retinopathy, foot surgeries, multiple skin cancer removal. SOCIAL HISTORY: Negative for smoking, drug abuse or alcohol abuse. MEDICATIONS: Medications at home prior to admission included Pravachol, lansoprazole, sodium bicarb, Eliquis, Flomax, iron, Singulair, Zyloprim, Rocaltrol, prednisone, Norvasc, hydralazine, Prograf. ALLERGIES: ALLERGIES include IODINE AND IODINE-CONTAINING AGENTS. REVIEW OF SYSTEMS: As per HPI. Other systems negative. PHYSICAL EXAMINATION: Patient is comfortable, awake, alert, oriented x3, not in any acute distress. Blood pressure 156/81, heart rate 83 per minute. He is afebrile. EXAMINATION OF THE HEART: S1 and S2. EXAMINATION OF LUNGS: Bilateral breath sounds are heard. Decreased breath sounds at bases with basal crackles heard. ABDOMEN: Soft, non-tender. Examination of lower extremities shows no evidence of edema. CORPORATE COUNSELOR exam is grossly intact. Multiple skin lesions noted on the scalp and on the skin as well. LABS: Labs show sodium 136, potassium 3.8, BUN 28, serum creatinine 1.45, hemoglobin at 10.8 g/dL. ASSESSMENT: 1. Acute kidney injury, mostly cardiorenal, associated with congestive heart failure exacerbation, maintained on IV Lasix. Repeat labs in a.m. No nephrotoxic agents noted. 2. Status post living-related renal transplant 2000 and pancreas transplant. Continue with current immunosuppression. Patient has been taken off of CellCept secondary to repeated skin malignancies and he is on the lower dose of Prograf. Continue the same dose at this point. 3. Metabolic acidosis, maintained on sodium bicarb. 4. Congestive heart failure. Check ejection fraction on echocardiogram. 5. Hypertension, currently controlled. PLAN: Continue current dose of Lasix. Repeat labs in a.m. Continue the Rocaltrol for CKD mineral bone disorder. Avoid nephrotoxic agents. Thank you for this consultation. Will continue to follow the patient with you during his hospitalization. MMODL / IJN: [id number] /
[2020-03-03] MEDS ORDERED: TACROLIMUS 0.5 MG CAP PO SCH (21:00)
[2020-03-03] MEDS ORDERED: PRAVASTATIN SODIUM 20 MG TAB PO SCH (21:00)
[2020-03-03] MEDS ORDERED: MONTELUKAST 10 MG TAB PO SCH (21:00)
[2020-03-03] MEDS ORDERED: TAMSULOSIN 0.4 MG CAP.ER.24H PO SCH (21:00)
[2020-03-04] MEDS: IPRATROPIUM-ALBUTEROL 3 ML NEB INHALATION SCH ×3 (00:21→09:08)
[2020-03-04 07:39] VITALS: BP 156/74; RESP 16; TEMP 97.8
[2020-03-04] MEDS: SPIRONOLACTONE 25 MG TAB PO SCH (07:56)
[2020-03-04] MEDS: APIXABAN 5 MG TAB PO SCH (07:56)
[2020-03-04] MEDS: hydrALAZINE HCL 50 MG TAB PO SCH (07:56)
[2020-03-04] MEDS: SODIUM BICARBONATE TAB 650 MG TAB PO SCH (07:56)
[2020-03-04] MEDS: allopurinoL 100 MG TAB PO SCH (07:56)
[2020-03-04] MEDS: PANTOPRAZOLE 40 MG TABLET PO SCH (07:56)
[2020-03-04] MEDS: FERROUS SULFATE 325 MG TAB PO SCH (07:56)
[2020-03-04] MEDS: LABETALOL 200 MG TAB PO SCH (07:57)
[2020-03-04] MEDS: amLODIPine 5 MG TAB PO SCH (07:57)
[2020-03-04] MEDS: predniSONE 5 MG TAB PO SCH (07:58)
[2020-03-04] MEDS: TACROLIMUS 0.5 MG CAP PO SCH (07:58)
--- NOTE | 2020-03-04 08:15 | XR ---
EXAMINATION TYPE: XR chest 2V DATE OF EXAM: 03/04/2020 COMPARISON: Prior chest x-ray 03/03/2020 HISTORY: Heart failure follow-up TECHNIQUE: Frontal and lateral views of the chest are obtained. FINDINGS: Interstitium remains increased, there is some improvement in visualization of the central vascularity. Heart size is borderline enlarged although patient is rotated. There is no evident pneum othorax or pleural effusion. Surgical clips are present at the base of the left neck. Bones are uncha nged. IMPRESSION: Findings suggest interstitial edema. There may be some improved findings status, aeratio n as compared to prior exam.
[2020-03-04] MEDS ORDERED: FUROSEMIDE 40 MG TAB PO SCH (09:00)
[2020-03-04 09:12] VITALS: PULSE 72
[2020-03-04 10:42] LABS: African American GFR (CKD) 59.5 (60.0-200.0); Anion Gap 10.2 mmol/L (4.00-12.00); BUN/Creat Ratio 19.33 Ratio (12.00-20.00); Calcium 8.8 mg/dL (8.7-10.3); Carbon Dioxide 27.8 mmol/L (21.6-31.8); Non-African American GFR(CKD) 51.3 (60.0-200.0); Potassium 3.5 mmol/L (3.5-5.5)
--- NOTE | 2020-03-04 13:12 | P.DS ---
Providers Date of admission: 03/03/20 01:10 Expected date of discharge: 03/04/20 Attending physician: Tong Deras Consults: 03/03/20 01:10 Consult Physician Routine Consulting Provider: Maria D Pillai Consult Reason/Comments: hypoxia Do you want consulting provider notified?: Yes Consult Physician Routine Consulting Provider: Silvia Jordan Consult Reason/Comments: chf Do you want consulting provider notified?: Yes 03/03/20 08:52 Consult Physician Routine Consulting Provider: Eleonora Jo Consult Reason/Comments: transplant Do you want consulting provider notified?: Yes Primary care physician: Sujit Pereira luis [facility] Course: HISTORY OF PRESENT ILLNESS This is a 54-year-old male patient of , Dr. Adhikari, Dr. 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 Serrano radiation oncologist at [facility], obstructive sleep apnea on BiPAP, hypertension, hyperlipidemia, benign prostatic hypertrophy. Patient states that he was struggling to breathe. It was a sudden onset yesterday. He denies any chest pain or palpitations. He denies any weight gain. He has not been on any diuretics at home. He denies having any fever or chills. He denies any exposure to potential Covid patients. Patient came into [facility] emergency center for evaluation. Patient was afebrile, heart rate 86, blood pressure 166/82, pulse ox 91% on room air. EKG reveals sinus rhythm with no acute ST changes. Chest xray reveals cardiomegaly with pulmonary edema and pleural fluid consistent with congestive heart failure. WBC 12.2, hemoglobin 10.8, platelets 190, sodium 136, potassium 3.8, creatinine 1.45, magnesium 1.7, alkaline phosphate 186, troponins negative 2, NT proBNP 3660 and pro-calcitonin 0.1. Patient has been admitted to the [facility] floor and consults with pulmonary medicine and cardiology. Echocardiogram reveals EF of 55-60% with mild mitral regurgitation, mild tricuspid regurgitation, mild pulmonary hypertension. 03/04: Patient states that his breathing status is improved and back to baseline. He is anxious to be discharged home. He states his breathing is much easier today. Chest x-ray reveals interstitial edema. Some improvement findings status, aeration compared to prior exam. Repeat blood work reveals creatinine 1.5, BUN 29. Blood sugar 113. Patient is been afebrile, heart rate 72, blood pressure 156/74, pulse ox 97% on 2 L nasal cannula.Patient will be discharged home today in stable condition. Prescriptions for Lasix and Aldactone sent to his pharmacy. ASSESSMENT AND PLAN 1. Acute diastolic heart failure. 2. Paroxysmal atrial fibrillation. 3. Squamous cell skin cancer under the care of radiation oncology at [facility]. 4. Hypertension. 5. Hyperlipidemia. 6. Obstructive sleep apnea. 7. Diabetes mellitus type 1 status post pancreas. 8. Pancreas and kidney transplant. 9. Benign prostatic hypertrophy. Discharge plan: Return home Impression and plan of care have been directed as dictated by the signing physician. Chata Garcia nurse practitioner acting as scribe for signing physician. Patient Condition at Discharge: Good Plan - Discharge Summary New Discharge Prescriptions: New Spironolactone [Aldactone] 25 mg PO DAILY #30 tab Furosemide [Lasix] 40 mg PO DAILY #30 tab Continue Pravastatin Sodium [Pravachol] 20 mg PO HS Sodium Bicarbonate Tab 650 mg PO TID Lansoprazole 30 mg PO DAILY Tamsulosin [Flomax] 0.4 mg PO HS Apixaban [Eliquis] 5 mg PO BID Ferrous Sulfate [Iron (65 MG Elemental)] 325 mg PO BID calcitrioL [Rocaltrol] 0.25 mcg PO SUTUTHSA allopurinoL [Zyloprim] 100 mg PO DAILY Montelukast [Singulair] 10 mg PO HS predniSONE 5 mg PO DAILY amLODIPine [Norvasc] 5 mg PO BID Labetalol HCl 400 mg PO BID hydrALAZINE HCL [Apresoline] 50 mg PO TID #90 tab Calcitriol [Rocaltrol] 0.5 mcg PO MOWEFR Tacrolimus [Prograf] 0.5 mg PO BID Niacinamide 500 mg PO BID Discharge Medication List Pravastatin Sodium [Pravachol] 20 mg PO HS 11/23/13 [History] Sodium Bicarbonate Tab 650 mg PO TID 11/23/13 [History] Lansoprazole 30 mg PO DAILY 07/14/18 [History] Apixaban [Eliquis] 5 mg PO BID 09/18/18 [History] Tamsulosin [Flomax] 0.4 mg PO HS 09/18/18 [History] Ferrous Sulfate [Iron (65 MG Elemental)] 325 mg PO BID 12/17/18 [History] Montelukast [Singulair] 10 mg PO HS 12/17/18 [History] allopurinoL [Zyloprim] 100 mg PO DAILY 12/17/18 [History] calcitrioL [Rocaltrol] 0.25 mcg PO SUTUTHSA 12/17/18 [History] predniSONE 5 mg PO DAILY 03/09/19 [History] Labetalol HCl 400 mg PO BID 11/15/19 [History] amLODIPine [Norvasc] 5 mg PO BID 11/15/19 [History] hydrALAZINE HCL [Apresoline] 50 mg PO TID #90 tab 11/17/19 [Rx] Calcitriol [Rocaltrol] 0.5 mcg PO MOWEFR 03/03/20 [History] Niacinamide 500 mg PO BID 03/03/20 [History] Tacrolimus [Prograf] 0.5 mg PO BID 03/03/20 [History] Furosemide [Lasix] 40 mg PO DAILY #30 tab 03/04/20 [Rx] Spironolactone [Aldactone] 25 mg PO DAILY #30 tab 03/04/20 [Rx] Follow up Appointment(s)/Referral(s): Silvia Jordan MD [STAFF PHYSICIAN] - 03/21/20 9:45 am (Friendly reminder; You also have an appointment for a device check on March 15 @ 08:30) Sujit Cartagena MD [Primary Care Provider] - 1 Week (Office is closed at time of discharge please call SaturdayMarch 07 to set up a follow up appointment) Jeremiah Adhikari DO [STAFF PHYSICIAN] - 03/15/20 10:20 am (The office is making your already set up tele health visit as a hospital follow up) Patient Instructions/Handouts: Spironolactone (By mouth), Furosemide (By mouth), Heart Failure (DC), COPD (Chronic Obstructive Pulmonary Disease) (DC) Discharge Disposition: HOME SELF-CARE
--- NOTE | 2020-03-04 14:26 | P.PN ---
Subjective Progress Note Date: 03/04/20 Principal diagnosis: Acute hypoxic respiratory failure secondary to acute exacerbation of diastolic congestive heart This is a very pleasant 54-year-old gentleman who follows with Dr. Cartagena as his primary care provider. He has a history of diabetes mellitus since age 9. He is status post kidney transplant at and 1988 and 1990. He is also status post pancreatic transplant at the [facility] in 2000 He had been on CellCept in the past but he had developed skin cancers. He is currently on Prograf and prednisone. 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 Currently undergoing radiation treatment. He also has a history of hypertension, hyperlipidemia, obstructive sleep apnea utilizing CPAP in the outpatient setting. He is a lifelong nonsmoker. He presented here to the emergency room last evening with complaints of increasing shortness of breath. Chest x-ray revealed evidence of cardiomegaly and pu lmonary edema with pleural fluid consistent with congestive heart failure. Echocardiogram revealed preserved left ventricular systolic function with ejection fraction 55-60%. He had undergone a computed tomography scan of the chest and December of this year that revealed no acute pulmonary process. He is currently receiving IV diuretics. Current creatinine 1.45. ProBNP 3660. Troponin negative. Pro-calcitonin pending. White count 12.2. Hemoglobin 10.8. He is seen today in consultation on the regular medical floor. He is resting quite comfortably in bed. Awake and alert in no acute distress. He has his home CPAP that he is using here. He has been compliant. He is maintaining O2 saturations in the 90s on room air now. He is afebrile. He's been initiated on bronchodilators, IV diuretics. The patient is seen today in 03/04/2020 in follow-up on the regular medical floor. He is doing quite a bit better. Awake and alert in no acute distress. Breathing is nearly back to his baseline. Maintaining good O2 saturations in the 90s on room air. He's afebrile. Chest x-ray shows improved aeration with some minimal interstitial edema. Blood culture reveals no growth. Sodium 142. Potassium 3.5. Creatinine 1.5. He was converted to oral Lasix. Remains on bronchodilators. Anticoagulated with Eliquis. Objective - Vital Signs Vital signs: Vital Signs Temp 97.8 F 03/04/20 07:02 Pulse 72 03/04/20 09:18 Resp 16 03/04/20 08:00 BP 156/74 03/04/20 07:02 Pulse Ox 97 03/04/20 07:02 Intake & Output 03/03/20 03/04/20 03/04/20 18:59 06:59 18:59 Intake Total 450 350 420 Output Total 450 Balance 0 350 420 Weight 68.039 kg Intake: Oral 450 350 420 Output: Urine 450 Other: # Voids 1 2 2 - Exam GENERAL EXAM: Alert, active, pleasant 54-year-old gentleman, on room air, comfortable in no apparent distress. HEAD: Normocephalic. EYES: Normal reaction of pupils, equal size. NOSE: Clear with pink turbinates. THROAT: No erythema or exudates. NECK: No masses, no JVD. CHEST: No chest wall deformity. LUNGS: Equal air entry with crackles in the bilateral posterior bases. CVS: S1 and S2 normal with no audible murmur, regular rhythm. ABDOMEN: No hepatosplenomegaly, normal bowel sounds, no guarding or rigidity. SPINE: No scoliosis or deformity SKIN: No rashes, changes from recent skin biopsies and radiation treatments to the head and neck CENTRAL NERVOUS SYSTEM: No focal deficits, tone is normal in all 4 extremities. EXTREMITIES: There is no peripheral edema. No clubbing, no cyanosis. Peripheral pulses are intact. - Labs CBC & Chem 7: 03/03/20 00:46 03/04/20 06:58 Labs: Abnormal Lab Results - Last 24 Hours (Table) 03/04/20 Range/Units 06:58 BUN 29.0 H (9.0-27.0) mg/dL Est GFR (CKD-EPI)AfAm 59.5 L (60.0-200.0) Est GFR (CKD-EPI)NonAf 51.3 L (60.0-200.0) Glucose 113 H (70-110) mg/dL Microbiology - Last 24 Hours (Table) 03/02/20 23:57 Blood Culture - Preliminary Blood No Growth after 24 hours Assessment and Plan Assessment: 1 Acute hypoxic respiratory failure secondary to an acute exacerbation of diastolic congestive heart failure 2 Immunocompromised patient with a history of bilateral kidney transplant in 1988 and 1990. Status post pancreatic transplant in 2000. Previously been on CellCept not on Prograf and prednisone. 3 Basal and squamous cell skin cancer currently receiving radiation treatments to the left neck 4 Obstructive sleep apnea utilizing CPAP in the outpatient setting 5 Hypertension 6 Hyperlipidemia Plan: The patient was seen and evaluated by Dr. Pillai Chest x-ray and labs reviewed Cleared for discharge from the pulmonary standpoint Continue home CPAP at night With his mannequin wig maker in 1-2 weeks' time I, the cosigning physician, performed a history & physical examination of the patient. Lungs sounds with crackles in the bilateral posterior bases. Maintai nivia good O2 saturations in the 90s on room air. I discussed the assessment and plan of care with my nurse practitioner, Leslie Arboleda. I attest to the above note as dictated by her.
--- NOTE | 2020-03-04 17:12 | PN ---
PROGRESS NOTE Patient is seen for followup for post-transplant care. He was admitted to the hospital with volume overload and he has been diuresed. Currently patient denies any shortness of breath. He is comfortable. PHYSICAL EXAMINATION: On examination today, blood pressure 156/74, heart rate 67 per minute. He is afebrile. EXAMINATION OF THE HEART: S1 and S2. EXAMINATION OF LUNGS: Bilateral breath sounds are heard. ABDOMEN: Soft, non-tender. Examination of lower extremities shows no significant edema. LPN exam is grossly intact. LABS: Labs show sodium 142, potassium 3.5, chloride 104, BUN 29, creatinine 1.5 mg/dL. Hemoglobin was 10.8 yesterday. ASSESSMENT: 1. Status post living-related renal allograft in 2000 as well as pancreas transplant in 2000. Renal function close to baseline. However, serum creatinine is slightly high, mostly associated with cardiorenal state. Continue current immunosuppressive medications. Switch Lasix to p.o. and follow up as outpatient. 2. Metabolic acidosis, maintained on sodium bicarb. 3. Congestive heart failure. Echocardiogram this admission showed ejection fraction 55% to 60%, mostly diastolic. PLAN: Patient can be discharged. Follow up as outpatient in 1-2 weeks. Continue oral Lasix. MMODL / IJN: [id number] /
[2020-03-05] MEDS ORDERED: SPIRONOLACTONE 25 MG TAB PO SCH (09:00)
== END 2020-03-04 10:47 | disposition home or self-care (01) ==
LOC: EC 23:33 → 4SSUR 03-03 01:10
PROVIDERS: ADMIT Internal Medicine Geriatric Medicine; ATTEND Internal Medicine Geriatric Medicine
DX: I50.31 Acute diastolic (congestive) heart failure (principal); I48.0 Paroxysmal atrial fibrillation; C44.42 Squamous cell carcinoma of skin of scalp and neck; C44.41 Basal cell carcinoma of skin of scalp and neck; I11.0 Hypertensive heart disease with heart failure; D89.9 Disorder involving the immune mechanism, unspecified; E78.5 Hyperlipidemia, unspecified; G47.33 Obstructive sleep apnea (adult) (pediatric); Z86.39 Personal history of other endocrine, nutritional and metabolic disease; Z94.0 Kidney transplant status; Z94.83 Pancreas transplant status; N40.0 Benign prostatic hyperplasia without lower urinary tract symptoms; J44.1 Chronic obstructive pulmonary disease with (acute) exacerbation; M19.90 Unspecified osteoarthritis, unspecified site; A52.16 Charcot's arthropathy (tabetic); I08.1 Rheumatic disorders of both mitral and tricuspid valves; I27.20 Pulmonary hypertension, unspecified; N28.9 Disorder of kidney and ureter, unspecified; N17.9 Acute kidney failure, unspecified; E87.2 Acidosis; D72.829 Elevated white blood cell count, unspecified; J96.01 Acute respiratory failure with hypoxia; Z86.711 Personal history of pulmonary embolism; Z87.01 Personal history of pneumonia (recurrent); Z79.899 Other long term (current) drug therapy; Z85.828 Personal history of other malignant neoplasm of skin; Z79.01 Long term (current) use of anticoagulants; Z79.52 Long term (current) use of systemic steroids; Z79.51 Long term (current) use of inhaled steroids; Z91.048 Other nonmedicinal substance allergy status; Z99.89 Dependence on other enabling machines and devices; Z87.81 Personal history of (healed) traumatic fracture; Z87.19 Personal history of other diseases of the digestive system; Z98.890 Other specified postprocedural states; Z96.652 Presence of left artificial knee joint; Z98.41 Cataract extraction status, right eye; Z98.42 Cataract extraction status, left eye; Z96.1 Presence of intraocular lens; Z85.819 Personal history of malignant neoplasm of unspecified site of lip, oral cavity, and pharynx; Z87.448 Personal history of other diseases of urinary system; Z80.0 Family history of malignant neoplasm of digestive organs; Z83.3 Family history of diabetes mellitus; Z82.3 Family history of stroke; Z81.2 Family history of tobacco abuse and dependence
CPT/HCPCS: 96376; 96374; 99291; 36415; 94640 ×3; 93005; 93306; 83880; 80053; 80048; 82728; 83605; 83615; 83735; 84484; 85025; 85610; 85730; 86140; 87040; 84145; 71045; 71046; G0378 ×2; J1940; J7512 ×2

== ENCOUNTER 2020-05-02 11:39 | Emergency (ER) | payer MEDICARE ==
[2020-05-02] MEDS ORDERED: SODIUM CHLORIDE 0.9% 500 ML 500 ML IV STA (12:53)
[2020-05-02] MEDS ORDERED: ONDANSETRON 4 MG/2 ML VIAL IM STA (12:53)
[2020-05-02] MEDS ORDERED: SODIUM CHLORIDE 0.9% 1,000 ML IV STA (12:53)
--- NOTE | 2020-05-02 12:54 | ED ---
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 Patient states that for the past 2 days he has had dizziness increases with head movement. He states when he walks it feels like he is spinning. Patient denies feeling super off-balance he denies any falling or tripping. Patient denies any head injury. Patient states he is undergoing radiation to the left side of his face and has some irritation fullness of the left ear he states he has struggled with vertigo in the past. Patient denies any localized weakness sensation deficits speech changes visual changes headache or neck stiffness. Denies fevers. Patient denies upper respiratory symptoms. Patient also endorsed that he had some chest discomfort today an episode of dry heaving. Denies current chest pain or pressure. Denies current SOB, states slightly earlier. Denies LE swelling, pain with a deep breath or hemoptysis. Denies lightheadedness, syncope or presyncope. States pain earlier was more pressure, denies sharp pain. Patient denies active chemo states he is on his rejection medications but they have been lowered secondary to the squamous cell carcinoma. (Anusha Salter) - Related Data Home Medications Medication Instructions Recorded Confirmed Pravastatin Sodium [Pravachol] 20 mg PO MOTUTHSA 11/23/13 05/02/20 Sodium Bicarbonate Tab 1,300 mg PO TID 11/23/13 05/02/20 Lansoprazole 30 mg PO DAILY 07/14/18 05/02/20 Apixaban [Eliquis] 5 mg PO BID 09/18/18 05/02/20 Tamsulosin [Flomax] 0.4 mg PO HS 09/18/18 05/02/20 Ferrous Sulfate [Iron (65 MG 325 mg PO BID 12/17/18 05/02/20 Elemental)] Montelukast [Singulair] 10 mg PO HS 12/17/18 05/02/20 allopurinoL [Zyloprim] 100 mg PO DAILY 12/17/18 05/02/20 calcitrioL [Rocaltrol] 0.5 mcg PO MOWEFR 12/17/18 05/02/20 predniSONE 5 mg PO DAILY 03/09/19 05/02/20 Labetalol HCl 400 mg PO BID 11/15/19 05/02/20 amLODIPine [Norvasc] 5 mg PO BID 11/15/19 05/02/20 Calcitriol [Rocaltrol] 0.25 mcg PO SUTUTHSA 03/03/20 05/02/20 Tacrolimus [Prograf] 0.5 mg PO HS 03/03/20 05/02/20 Ciprofloxacin HCl [Cipro] 250 mg PO Q12HR 05/02/20 05/02/20 Ergocalciferol [Vitamin D2] 50,000 unit PO Q30D 05/02/20 05/02/20 Tacrolimus [Prograf] 1 mg PO DAILY 05/02/20 05/02/20 Previous Rx's Medication Instructions Recorded hydrALAZINE HCL [Apresoline] 50 mg PO TID #90 tab 11/17/19 Spironolactone [Aldactone] 25 mg PO DAILY #30 tab 03/04/20 Allergies Allergy/AdvReac Type Severity Reaction Status Date / Time Iodine and Iodide Containing AdvReac HX OF Verified 05/02/20 14:01 Produc KIDNEY DISEASE Review of Systems ROS Other: All systems not noted in ROS Statement are negative. <Anusha Salter - Last Filed: 05/02/20 14:17> ROS Other: All systems not noted in ROS Statement are negative. <Nikhil Thompson - Last Filed: 05/02/20 16:16> ROS Statement: Those systems with pertinent positive or pertinent negative responses have been documented in the HPI. Past Medical History Past Medical History: Cancer, Heart Failure, Hyperlipidemia, Hypertension, Osteoarthritis (OA), Renal Disease, Sleep Apnea/CPAP/BIPAP Additional Past Medical History / Comment(s): ARDS, hx of DM was tx for dm from age 9 to age 35(had pancreas transplant), uses cpap machine, basal and squamous cell skin cancer, hx rt elbow broken-(sx), charcots foot, pancreatitis, History of Any Multi-Drug Resistant Organisms: None Reported Past Surgical History: Hernia Repair, Joint Replacement Additional Past Surgical History / Comment(s): kidney and pancreas transplant , L knee replacment, rt elbow sx has 7 screws,cataracts removed-lens implants, laser eye sx for retinopathy, fernando foot sx(rt foot bone gravt and lt foot bone shaved), skin cancer removed on his head, Past Anesthesia/Blood Transfusion Reactions: No Reported Reaction Past Psychological History: No Psychological Hx Reported Smoking Status: Never smoker Past Alcohol Use History: Occasional Past Drug Use History: None Reported - Past Family History Mother Family Medical History: Cancer, Diabetes Mellitus Additional Family Medical History / Comment(s): liver cancer Father Family Medical History: CVA/TIA Additional Family Medical History / Comment(s): was smoker had ctroke in his 30's <JoieAnusha L - Last Filed: 05/02/20 14:17> General Exam Limitations: no limitations <JoieAnusha L - Last Filed: 05/02/20 14:17> - General Exam Comments Initial Comments: General: The patient is awake and alert, in no distress Eye: +3 mm pupils are equal, round and reactive to light, extra-ocular movements are intact. No nystagmus. There is normal conjunctiva bilaterally. No signs of icterus. Ears, nose, mouth and throat: There are moist mucous membranes and no oral lesions. Neck: The neck is supple, there is no tenderness or JVD. Cardiovascular: There is a regular rate and rhythm. No murmur, rub or gallop is appreciated. Respiratory: Lungs are clear to auscultation, respirations are non-labored, breath sounds are equal. No wheezes, stridor, rales, or rhonchi. Gastrointestinal: Soft, non-distended, non-tender abdomen without masses or organomegaly noted. There is no rebound or guarding present. Musculoskeletal: Normal ROM, no tenderness. Strength 5/5. Sensation intact. Radial and DP pulses equal bilaterally 2+. Neurological: A&O x 3. CN II-XII intact, There are no obvious motor or sensory deficits. Coordination appears grossly intact. Speech is normal. Skin: Skin is warm and dry and no rashes or lesions are noted. No LE edema. no foot swelling, no calf swelling or pain to palpation. Psychiatric: Cooperative, appropriate mood & affect, normal judgment. (Anusha Salter) Course <Anusha Salter - Last Filed: 05/02/20 14:17> Vital Signs 05/02/20 05/02/20 11:57 14:00 Temperature 97.1 F L Pulse Rate 85 74 Respiratory 16 18 Rate Blood Pressure 122/68 143/82 O2 Sat by Pulse 99 95 Oximetry - Reevaluation(s) Reevaluation #1: 05/02/20 14:[address] Thompson, pending labs and imaging studies. aware of pMH. (Anusha Salter) Medical Decision Making - Lab Data Result diagrams: 05/02/20 13:42 <Anusha Salter - Last Filed: 05/02/20 14:17> - Lab Data Result diagrams: 05/02/20 13:42 05/02/20 13:42 <Nikhil Thompson - Last Filed: 05/02/20 16:16> - Medical Decision Making 54-year-old male with extensive medical history, pancreatic, renal transplant, diabetes, squamous cell cancer. Workup initiated for an episode of dizziness, vomiting which occurred at approximately 9 AM this morning. There is no ataxia, no focal findings on exam. He is overall well-appearing. He had some chest di scomfort associated with his vomiting episode. Head CT is performed which is negative for intracranial hemorrhage or mass effect, chest x-ray shows some mild interstitial edema. Ultrasound of his transplant kidney is normal. He has a hemoglobin 12.8 which is improved for him. He has a creatinine 1.29 which is baseline, mildly elevated BNP at 3000. Urinalysis shows 11 white blood cells, culture pending. I did offer this patient admission for further symptomatic control, evaluation by his data base design analyst and investigative analyst. He and his declined and preferred outpatient follow-up. They will return with any worsening or changing symptoms. (Nikhil Thompson) - Lab Data Lab Results 05/02/20 05/02/20 05/02/20 Range/Units 13:42 13:42 13:42 WBC 7.2 (3.8-10.6) k/uL RBC 4.22 L (4.30-5.90) m/uL Hgb 12.8 L (13.0-17.5) gm/dL Hct 36.9 L (39.0-53.0) % MCV 87.5 (80.0-100.0) fL MCH 30.4 (25.0-35.0) pg MCHC 34.8 (31.0-37.0) g/dL RDW 14.8 (11.5-15.5) % Plt Count 226 (150-450) k/uL MPV 6.5 Neutrophils % 85 % Lymphocytes % 5 % Monocytes % 6 % Eosinophils % 1 % Basophils % 1 % Neutrophils # 6.1 (1.3-7.7) k/uL Lymphocytes # 0.4 L (1.0-4.8) k/uL Monocytes # 0.5 (0-1.0) k/uL Eosinophils # 0.1 (0-0.7) k/uL Basophils # 0.1 (0-0.2) k/uL PT 11.0 (9.0-12.0) sec INR 1.1 (<1.2) APTT 30.2 H (22.0-30.0) sec Sodium (137-145) mmol/L Potassium (3.5-5.1) mmol/L Chloride (98-107) mmol/L Carbon Dioxide (22-30) mmol/L Anion Gap mmol/L BUN (9-20) mg/dL Creatinine (0.66-1.25) mg/dL Est GFR (CKD-EPI)AfAm (>60 ml/min/1.73 sqM) Est GFR (CKD-EPI)NonAf (>60 ml/min/1.73 sqM) Glucose (74-99) mg/dL Plasma Lactic Acid Jose (0.7-2.0) mmol/L Calcium (8.4-10.2) mg/dL Magnesium (1.6-2.3) mg/dL Total Bilirubin (0.2-1.3) mg/dL AST (17-59) U/L ALT (4-49) U/L Alkaline Phosphatase (38-126) U/L Troponin I (0.000-0.034) ng/mL NT-Pro-B Natriuret Pep pg/mL Total Protein (6.3-8.2) g/dL Albumin (3.5-5.0) g/dL TSH (0.465-4.680) mIU/L Urine Color Light Yellow Urine Appearance Clear (Clear) Urine pH 7.0 (5.0-8.0) Ur Specific [place] 1.012 (1.001-1.035) Urine Protein Trace H (Negative) Urine Glucose (UA) Negative (Negative) Urine Ketones Negative (Negative) Urine Blood Negative (Negative) Urine Nitrite Negative (Negative) Urine Bilirubin Negative (Negative) Urine Urobilinogen <2.0 (<2.0) mg/dL Ur Leukocyte Esterase Large H (Negative) Urine RBC 1 (0-5) /hpf Urine WBC 11 H (0-5) /hpf Ur Squamous Epith Cells <1 (0-4) /hpf Urine Mucus Rare H (None) /hpf 05/02/20 05/02/20 05/02/20 Range/Units 13:42 13:42 13:42 WBC (3.8-10.6) k/uL RBC (4.30-5.90) m/uL Hgb (13.0-17.5) gm/dL Hct (39.0-53.0) % MCV (80.0-100.0) fL MCH (25.0-35.0) pg MCHC (31.0-37.0) g/dL RDW (11.5-15.5) % Plt Count (150-450) k/uL MPV Neutrophils % % Lymphocytes % % Monocytes % % Eosinophils % % Basophils % % Neutrophils # (1.3-7.7) k/uL Lymphocytes # (1.0-4.8) k/uL Monocytes # (0-1.0) k/uL Eosinophils # (0-0.7) k/uL Basophils # (0-0.2) k/uL PT (9.0-12.0) sec INR (<1.2) APTT (22.0-30.0) sec Sodium 138 (137-145) mmol/L Potassium 3.9 (3.5-5.1) mmol/L Chloride 105 (98-107) mmol/L Carbon Dioxide 23 (22-30) mmol/L Anion Gap 10 mmol/L BUN 28 H (9-20) mg/dL Creatinine 1.29 H (0.66-1.25) mg/dL Est GFR (CKD-EPI)AfAm 71 (>60 ml/min/1.73 sqM) Est GFR (CKD-EPI)NonAf 62 (>60 ml/min/1.73 sqM) Glucose 114 H (74-99) mg/dL Plasma Lactic Acid Jose 0.9 (0.7-2.0) mmol/L Calcium 9.4 (8.4-10.2) mg/dL Magnesium 1.6 (1.6-2.3) mg/dL Total Bilirubin 1.2 (0.2-1.3) mg/dL AST 19 (17-59) U/L ALT 20 (4-49) U/L Alkaline Phosphatase 118 (38-126) U/L Troponin I <0.012 (0.000-0.034) ng/mL NT-Pro-B Natriuret Pep pg/mL Total Protein 7.0 (6.3-8.2) g/dL Albumin 4.3 (3.5-5.0) g/dL TSH 2.240 (0.465-4.680) mIU/L Urine Color Urine Appearance (Clear) Urine pH (5.0-8.0) Ur Specific [place] (1.001-1.035) Urine Protein (Negative) Urine Glucose (UA) (Negative) Urine Ketones (Negative) Urine Blood (Negative) Urine Nitrite (Negative) Urine Bilirubin (Negative) Urine Urobilinogen (<2.0) mg/dL Ur Leukocyte Esterase (Negative) Urine RBC (0-5) /hpf Urine WBC (0-5) /hpf Ur Squamous Epith Cells (0-4) /hpf Urine Mucus (None) /hpf 05/02/20 Range/Units 13:42 WBC (3.8-10.6) k/uL RBC (4.30-5.90) m/uL Hgb (13.0-17.5) gm/dL Hct (39.0-53.0) % MCV (80.0-100.0) fL MCH (25.0-35.0) pg MCHC (31.0-37.0) g/dL RDW (11.5-15.5) % Plt Count (150-450) k/uL MPV Neutrophils % % Lymphocytes % % Monocytes % % Eosinophils % % Basophils % % Neutrophils # (1.3-7.7) k/uL Lymphocytes # (1.0-4.8) k/uL Monocytes # (0-1.0) k/uL Eosinophils # (0-0.7) k/uL Basophils # (0-0.2) k/uL PT (9.0-12.0) sec INR (<1.2) APTT (22.0-30.0) sec Sodium (137-145) mmol/L Potassium (3.5-5.1) mmol/L Chloride (98-107) mmol/L Carbon Dioxide (22-30) mmol/L Anion Gap mmol/L BUN (9-20) mg/dL Creatinine (0.66-1.25) mg/dL Est GFR (CKD-EPI)AfAm (>60 ml/min/1.73 sqM) Est GFR (CKD-EPI)NonAf (>60 ml/min/1.73 sqM) Glucose (74-99) mg/dL Plasma Lactic Acid Jose (0.7-2.0) mmol/L Calcium (8.4-10.2) mg/dL Magnesium (1.6-2.3) mg/dL Total Bilirubin (0.2-1.3) mg/dL AST (17-59) U/L ALT (4-49) U/L Alkaline Phosphatase (38-126) U/L Troponin I (0.000-0.034) ng/mL NT-Pro-B Natriuret Pep 3040 pg/mL Total Protein (6.3-8.2) g/dL Albumin (3.5-5.0) g/dL TSH (0.465-4.680) mIU/L Urine Color Urine Appearance (Clear) Urine pH (5.0-8.0) Ur Specific [place] (1.001-1.035) Urine Protein (Negative) Urine Glucose (UA) (Negative) Urine Ketones (Negative) Urine Blood (Negative) Urine Nitrite (Negative) Urine Bilirubin (Negative) Urine Urobilinogen (<2.0) mg/dL Ur Leukocyte Esterase (Negative) Urine RBC (0-5) /hpf Urine WBC (0-5) /hpf Ur Squamous Epith Cells (0-4) /hpf Urine Mucus (None) /hpf Disposition <Anusha Salter L - Last Filed: 05/02/20 14:17> Is patient prescribed a controlled substance at d/c from ED?: No Time of Disposition: 16:16 <Nikhil Thompson - Last Filed: 05/02/20 16:16> Clinical Impression: Renal transplant, status post, Dizziness, Vomiting Disposition: HOME SELF-CARE Condition: Fair Instructions (If sedation given, give patient instructions): Dizziness (ED), Lightheadedness (ED), Pulmonary Edema (ED) Referrals: Sujit Cartagena MD [Primary Care Provider] - 1-2 days Silvia Jordan MD [STAFF PHYSICIAN] - 1-2 days Jeremiah Adhikari DO [STAFF PHYSICIAN] - 1-2 days
[2020-05-02] MEDS ORDERED: ONDANSETRON 4 MG/2 ML VIAL IVP STA (13:57)
[2020-05-02 14:02] VITALS: RESP 18
[2020-05-02 14:12] LABS: Basophils # (A) 0.1 k/uL (0-0.2); Basophils % (A) 1 %; Eosinophils # (A) 0.1 k/uL (0-0.7); Eosinophils % (A) 1 %; HCT 36.9 % (39.0-53.0); HGB 12.8 gm/dL (13.0-17.5); Lymphocytes # (A) 0.4 k/uL (1.0-4.8); Lymphocytes % (A) 5 %; MCH 30.4 pg (25.0-35.0); MCHC 34.8 g/dL (31.0-37.0); MCV 87.5 fL (80.0-100.0); Mean Platelet Volume 6.5; Monocytes # (A) 0.5 k/uL (0-1.0); Monocytes % (A) 6 %; Neutrophils # (A) 6.1 k/uL (1.3-7.7); Neutrophils % (A) 85 %; Platelet Count 226 k/uL (150-450); RBC 4.22 m/uL (4.30-5.90); RDW 14.8 % (11.5-15.5); WBC 7.2 k/uL (3.8-10.6)
[2020-05-02 14:20] LABS: Albumin 4.3 g/dL (3.5-5.0); Calcium 9.4 mg/dL (8.4-10.2); INR 1.1 (<1.2); Magnesium 1.6 mg/dL (1.6-2.3); Partial Thromboplastin Time 30.2 sec (22.0-30.0); Potassium 3.9 mmol/L (3.5-5.1); Total Bilirubin 1.2 mg/dL (0.2-1.3)
[2020-05-02 14:24] LABS: Appearance,Urine Clear (Clear); Bilirubin,Urine Negative (Negative); Blood,Urine Negative (Negative); Color,Urine Light Yellow; Glucose,Urine (UA) Negative (Negative); Ketones,Urine Negative (Negative); Leukocyte Esterase,Urine Large (Negative); Mucus,Urine Rare /hpf; Nitrite,Urine Negative (Negative); Protein,Urine Trace (Negative); RBC,Urine 1 /hpf (0-5); Specific Gravity,Urine 1.012 (1.001-1.035); Squamous Epithelial Cell,Urine <1 /hpf (0-4); Urobilinogen,Urine <2.0 mg/dL (<2.0); WBC,Urine 11 /hpf (0-5)
--- NOTE | 2020-05-02 14:34 | CT ---
EXAMINATION TYPE: CT brain wo con DATE OF EXAM: 05/02/2020 COMPARISON: 06/16/2019 HISTORY: weakness, dizziness CT DLP: 1095.[address] of the brain was performed. The ventricles, basal cisterns and sulci overlying the cerebral convexities demonstrate mild enlargem ent. There is no evidence for intracranial hemorrhage or sulcal effacement. There is decreased attenuation about the periventricular white matter and deep white matter of both c erebral hemispheres, compatible with chronic small vessel ischemia. Differential diagnosis does inclu de demyelination. No mass effects are seen.No midline shift. Osseous calvarium is intact. If symptoms persist consider MRI. IMPRESSION: 1. Age related atrophic and chronic small vessel ischemic change without acute intracranial process s een at this time.
--- NOTE | 2020-05-02 14:42 | XR ---
EXAMINATION TYPE: XR chest 2V DATE OF EXAM: 05/02/2020 COMPARISON: Prior chest x-ray dated 03/04/2020 HISTORY: Weakness TECHNIQUE: Frontal and lateral views of the chest are obtained. FINDINGS: There is some improvement in the prominence and central vascularity as compared to prior e xam. Interstitium is increased however. There is no pneumothorax or pleural effusion. Surgical clips present at the left supraclavicular region. Prominent lung volume may be indicative of underlying GAME OPERATOR D. There are coronary artery calcifications. IMPRESSION: Correlate for possible interstitial edema. Coronary artery disease.
--- NOTE | 2020-05-02 15:28 | US ---
EXAMINATION TYPE: US renals and bladder DATE OF EXAM: 05/02/2020 COMPARISON: NONE CLINICAL HISTORY: right kidney only also has pancreatic transplant. EXAM MEASUREMENTS: Right transplant kidney: 12.3 x 5.2 x 6.2cm Cyst measuring 1.6 x 1.6 x 1.4cm Small amount of free fluid adjacent to kidney. Right Kidney: no discernable renal parenchyma Left Kidney: no discernable renal parenchyma Bladder: There is an irregularity at the level of the wall of the urinary bladder which is thought to be postoperative There is no evidence for hydronephrosis at this point in time. No nephrolithiasis is seen. . The ur inary bladder is anechoic. IMPRESSION: Bilateral renal atrophy. Transplant kidney shows normal cortical medullary differentiation and associ ated cyst, findings in the pancreas as described.
[2020-05-02 16:47] VITALS: BP 144/77; PULSE 73; TEMP 98.3
== END 2020-05-02 16:47 | disposition home or self-care (01) ==
LOC: EC 11:39
DX: R42 Dizziness and giddiness (principal); R11.10 Vomiting, unspecified; C44.92 Squamous cell carcinoma of skin, unspecified; R07.9 Chest pain, unspecified; G47.33 Obstructive sleep apnea (adult) (pediatric); I50.9 Heart failure, unspecified; I11.0 Hypertensive heart disease with heart failure; E11.9 Type 2 diabetes mellitus without complications; E78.5 Hyperlipidemia, unspecified; M19.90 Unspecified osteoarthritis, unspecified site; Z79.899 Other long term (current) drug therapy; Z96.652 Presence of left artificial knee joint; Z98.42 Cataract extraction status, left eye; Z98.41 Cataract extraction status, right eye; Z96.1 Presence of intraocular lens; Z91.041 Radiographic dye allergy status; Z80.8 Family history of malignant neoplasm of other organs or systems; Z94.0 Kidney transplant status; Z94.83 Pancreas transplant status
CPT/HCPCS: 36415; 93005; 83880; 80053; 83605; 83735; 84443; 84484; 85025; 85610; 85730; 81001; 87040; 87086; 71046; 76770; 70450; 99285; 96374; 96361 ×3; J2405

== ENCOUNTER → 2020-06-22 | Outpatient (CLI) | payer MEDICARE ==
--- NOTE | 2020-06-22 12:16 | CT ---
EXAMINATION TYPE: CT soft tissue neck wo con DATE OF EXAM: 06/22/2020 COMPARISON: 06/16/2019 HISTORY: Squamous cell carcinoma CT DLP: 278.70 mGycm CONTRAST: Patient injected with 0 mL of Isovue 300. TECHNIQUE: Axial images at 3 mm thick sections. Reconstructed images in the coronal plane and sagitt al plane are reviewed. FINDINGS: Limited CT sections are obtained the lung apices. The lung apices appear clear. There are scattered small lymph nodes within the pretracheal space and superior mediastinum. Enlarged lymphaden opathy is not evident. No suspicious supraclavicular adenopathy is identified CT neck: There is fullness through the torus tubarius and fossa Rosenmuller. Discrete underlying mass however is not evident. This may be due to the plane of section and is similar to the prior exam. Mu ltiple surgical clips are within the left neck. There appears to be a left prior parotidectomy. This is an interval change. Oven Drier Tender spaces are normal. Paranasal sinuses are clear. Mastoid air cells appear to be fluid-filled bilaterally. Correlate for mastoiditis. Discrete mass is not identified. Postsurgical changes along the left neck are present. Parotid glands appear normal and symmetrical. Submandibular glands, are normal. Parapharyngeal spac es are normal. No suspicious adenopathy is evident. There is asymmetry within the hypopharynx with fullness on the left compared to the right. Mild diffu se thickening to the left tonsillar pillar is present Vocal cord level appear symmetrical. Subglottic airway appears unremarkable. Thyroid as visualized is normal. Osseous structures are normal. IMPRESSIONS: 1. There appears to be some stable asymmetry of the hypopharynx with greater tissue on the left josué red to the right effacing a portion of the hypopharynx. Recurrent mass however is not clearly identif ied. Findings are stable over the interval. 2. Clinical correlation recommended for bilateral mastoiditis.
== END | disposition home or self-care (01) ==
LOC: RADCTMAIN 10:38
PROVIDERS: ATTEND Radiology Radiation Oncology
DX: J39.2 Other diseases of pharynx (principal); C44.42 Squamous cell carcinoma of skin of scalp and neck; C77.0 Secondary and unspecified malignant neoplasm of lymph nodes of head, face and neck
CPT/HCPCS: 70490

== ENCOUNTER 2020-06-24 19:07 | Inpatient (IN) | payer MEDICARE ==
[2020-06-24] MEDS ORDERED: SODIUM CHLORIDE 0.9% 500 ML 500 ML IV STA (19:43)
[2020-06-24] MEDS ORDERED: ONDANSETRON 4 MG/2 ML VIAL IVP STA (19:43)
[2020-06-24] MEDS ORDERED: HYDROmorphone 1 MG/ML 1 ML SYRINGE IVP STA ×2 (19:44→21:19)
[2020-06-24 20:08] LABS: Albumin 4.6 g/dL (3.5-5.0); Calcium 9.8 mg/dL (8.4-10.2); Total Bilirubin 0.8 mg/dL (0.2-1.3); Total Protein 7.4 g/dL (6.3-8.2)
[2020-06-24 20:12] LABS: Basophils % (A) 0 %; Eosinophils % (A) 0 %; HCT 38.7 % (39.0-53.0); HGB 12.9 gm/dL (13.0-17.5); Lymphocytes # (A) 0.3 k/uL (1.0-4.8); Lymphocytes % (A) 4 %; MCH 29.3 pg (25.0-35.0); MCHC 33.4 g/dL (31.0-37.0); MCV 87.8 fL (80.0-100.0); Mean Platelet Volume 6.3; Monocytes # (A) 0.5 k/uL (0-1.0); Monocytes % (A) 7 %; Neutrophils % (A) 87 %; Platelet Count 230 k/uL (150-450); RBC 4.41 m/uL (4.30-5.90); WBC 6.9 k/uL (3.8-10.6)
--- NOTE | 2020-06-24 20:51 | CT ---
EXAMINATION TYPE: CT abdomen pelvis wo con DATE OF EXAM: 06/24/2020 COMPARISON: 11/14/2019 HISTORY: Generalized pain with vomiting CT DLP: 400.5 mGycm Automated exposure control for dose reduction was used. Lung bases are clear. There is no pleural effusion. Heart is moderately enlarged. There is no pericar dial effusion. There is small hiatal hernia. The liver spleen gallbladder appear intact. The bile du cts are not dilated. There is very little pancreatic tissue identified. There is moderate atheroscler otic vascular calcification. There is no adrenal mass. There is advanced atrophy of the kidneys. Ther e is a right side transplant kidney with mild perinephric fluid. There is no hydronephrosis. There is previous left side transplant kidney with atrophy. Bladder distends smoothly. There is previous blad funmi surgery. There is no inguinal hernia. There is no free fluid in the pelvis. There are diverticula in the sigmoid colon without evidence of diverticulitis. There are some dilated air and fluid-filled small bowel loops in the left mid abdomen. Distal small b owel is not dilated. Small bowel dilated up to 3.2 cm. Lumbar vertebra have normal alignment. There is no compression fracture. Bony pelvis is intact. The h ip joints are intact. There is some degenerative cyst formation in the left acetabulum. IMPRESSION: Moderate cardiomegaly unchanged. There is fat stranding and fluid around the right side transplant ki dney which is improved compared to old exam. No hydronephrosis. Dilated fluid and air-filled small bowel loops in the left mid abdomen suggestive of ileus or partial mechanical small bowel obstruction which is a change compared to old exam.
--- NOTE | 2020-06-24 21:18 | ED ---
General Adult HPI - General Chief complaint: Abdominal Pain Stated complaint: Abdominal pain, vomiting Time Seen by Provider: 06/24/20 19:22 Source: patient Mode of arrival: wheelchair - History of Present Illness Initial comments: 55-year-old male patient with past medical history significant for bilateral kidney and pancreas transplant approximately 10 years ago. Currently being monitored by Dr. Adhikari in [place]. He is presenting to the emergency department today for evaluation of mid abdominal pain, vomiting. Symptoms started suddenly about 40 minutes prior to arrival. Patient has had similar type pain in the past and has had pancreatitis and what they're calling neuropathy of the abdomen. He denies any fever or chills. Denies constipation or diarrhea. States his last vomiting was yesterday morning and it was normal. Denies any other abdominal surgeries in addition to the transplants. Denies alcohol or drug use. Patient denies any recent rash, cough, shortness of breath, chest pain, back pain, numbness, tingling, dizziness, weakness, hematuria, dysu estefani, urinary urgency, urinary frequency, headache, visual changes, or any other complaints. - Related Data Home Medications Medication Instructions Recorded Confirmed Pravastatin Sodium [Pravachol] 20 mg PO MOTUTHSA 11/23/13 06/24/20 Sodium Bicarbonate Tab 1,300 mg PO BID 11/23/13 06/24/20 Lansoprazole 30 mg PO DAILY 07/14/18 06/24/20 Apixaban [Eliquis] 5 mg PO BID 09/18/18 06/24/20 Tamsulosin [Flomax] 0.4 mg PO BID 09/18/18 06/24/20 Ferrous Sulfate [Iron (65 MG 325 mg PO BID 12/17/18 06/24/20 Elemental)] Montelukast [Singulair] 10 mg PO HS 12/17/18 06/24/20 allopurinoL [Zyloprim] 200 mg PO DAILY 12/17/18 06/24/20 calcitrioL [Rocaltrol] 0.5 mcg PO MOWEFR 12/17/18 06/24/20 predniSONE 5 mg PO DAILY 03/09/19 06/24/20 Labetalol HCl 400 mg PO BID 11/15/19 06/24/20 amLODIPine [Norvasc] 5 mg PO BID 11/15/19 06/24/20 Calcitriol [Rocaltrol] 0.25 mcg PO SUTUTHSA 03/03/20 06/24/20 Tacrolimus [Prograf] 0.5 mg PO HS 03/03/20 06/24/20 Ergocalciferol [Vitamin D2] 50,000 unit PO Q14D 05/02/20 06/24/20 Tacrolimus [Prograf] 1 mg PO DAILY 05/02/20 06/24/20 Previous Rx's Medication Instructions Recorded hydrALAZINE HCL [Apresoline] 50 mg PO TID #90 tab 11/17/19 Spironolactone [Aldactone] 25 mg PO DAILY #30 tab 03/04/20 Allergies Allergy/AdvReac Type Severity Reaction Status Date / Time Iodine and Iodide Containing AdvReac HX OF Verified 06/24/20 20:50 Produc KIDNEY DISEASE Review of Systems ROS Statement: Those systems with pertinent positive or pertinent negative responses have been documented in the HPI. ROS Other: All systems not noted in ROS Statement are negative. Past Medical History Past Medical History: Cancer, Heart Failure, Hyperlipidemia, Hypertension, Osteoarthritis (OA), Renal Disease, Sleep Apnea/CPAP/BIPAP Additional Past Medical History / Comment(s): ARDS, hx of DM was tx for dm from age 9 to age 35(had pancreas transplant), uses cpap machine, basal and squamous cell skin cancer, hx rt elbow broken-(sx), charcots foot, pancreatitis, History of Any Multi-Drug Resistant Organisms: None Reported Past Surgical History: Hernia Repair, Joint Replacement Additional Past Surgical History / Comment(s): kidney and pancreas transplant , L knee replacment, rt elbow sx has 7 screws,cataracts removed-lens implants, laser eye sx for retinopathy, fernando foot sx(rt foot bone gravt and lt foot bone shaved), skin cancer removed on his head, Past Anesthesia/Blood Transfusion Reactions: No Reported Reaction Past Psychological History: No Psychological Hx Reported Smoking Status: Never smoker Past Alcohol Use History: Occasional Past Drug Use History: None Reported - Past Family History Mother Family Medical History: Cancer, Diabetes Mellitus Additional Family Medical History / Comment(s): liver cancer Father Family Medical History: CVA/TIA Additional Family Medical History / Comment(s): was smoker had ctroke in his 30's General Exam General appearance: alert, in no apparent distress, other (Physical well-de veloped, well-nourished adult male patient in no acute distress. Vital signs upon presentation To 98.7F, pulse 67, respirations 18, blood pressure 147/84, pulse ox 98% on room air.) Respiratory exam: Present: normal lung sounds bilaterally. Absent: respiratory distress, wheezes, rales, rhonchi, stridor Cardiovascular Exam: Present: regular rate, normal rhythm, normal heart sounds. Absent: systolic murmur, diastolic murmur, rubs, gallop, clicks GI/Abdominal exam: Present: soft, tenderness (Mid upper abdominal ), normal bowel sounds. Absent: distended, guarding, rebound, rigid Neurological exam: Present: alert, oriented X3, CN II-XII intact Psychiatric exam: Present: normal affect, normal mood Skin exam: Present: warm, dry, intact, normal color. Absent: rash Course Vital Signs 06/24/20 06/24/20 06/24/20 19:10 20:45 21:30 Temperature 98.7 F Pulse Rate 67 69 72 Respiratory 18 18 18 Rate Blood Pressure 147/84 137/78 134/78 O2 Sat by Pulse 98 97 99 Oximetry Medical Decision Making - Medical Decision Making 55-year-old male patient percents to the emergency department today for evaluation of abdominal pain and vomiting starting approximately 40 minutes prior to arrival. Physical examination did reveal mid upper abdominal tenderness. He did have some vomiting in the department. Labs reviewed and revealed normal white blood cell count is 6.9. BUN is 35, creatinine 1.68. Lactic acid is 1.3. Patient has not yet been able to provide a urine sample. CT abdomen and pelvis without contrast was obtained and did show evidence for partial mechanical bowel structure which is new compared to his previous exam. He'll be admitted to the hospital for further evaluation by general surgery. He will be made nothing by mouth. Dr. Sanchez requests NG tube. - Lab Data Result diagrams: 06/24/20 19:45 06/24/20 19:45 Lab Results 06/24/20 06/24/20 06/24/20 Range/Units 19:45 19:45 19:45 WBC 6.9 (3.8-10.6) k/uL RBC 4.41 (4.30-5.90) m/uL Hgb 12.9 L (13.0-17.5) gm/dL Hct 38.7 L (39.0-53.0) % MCV 87.8 (80.0-100.0) fL MCH 29.3 (25.0-35.0) pg MCHC 33.4 (31.0-37.0) g/dL RDW 14.0 (11.5-15.5) % Plt Count 230 (150-450) k/uL MPV 6.3 Neutrophils % 87 % Lymphocytes % 4 % Monocytes % 7 % Eosinophils % 0 % Basophils % 0 % Neutrophils # 6.0 (1.3-7.7) k/uL Lymphocytes # 0.3 L (1.0-4.8) k/uL Monocytes # 0.5 (0-1.0) k/uL Eosinophils # 0.0 (0-0.7) k/uL Basophils # 0.0 (0-0.2) k/uL Sodium 134 L (137-145) mmol/L Potassium 5.0 (3.5-5.1) mmol/L Chloride 104 (98-107) mmol/L Carbon Dioxide 19 L (22-30) mmol/L Anion Gap 11 mmol/L BUN 35 H (9-20) mg/dL Creatinine 1.68 H (0.66-1.25) mg/dL Est GFR (CKD-EPI)AfAm 52 (>60 ml/min/1.73 sqM) Est GFR (CKD-EPI)NonAf 45 (>60 ml/min/1.73 sqM) Glucose 132 H (74-99) mg/dL Plasma Lactic Acid Jose 1.3 (0.7-2.0) mmol/L Calcium 9.8 (8.4-10.2) mg/dL Total Bilirubin 0.8 (0.2-1.3) mg/dL AST 21 (17-59) U/L ALT 15 (4-49) U/L Alkaline Phosphatase 97 (38-126) U/L Total Protein 7.4 (6.3-8.2) g/dL Albumin 4.6 (3.5-5.0) g/dL Amylase 74 (30-110) U/L Lipase 314 H (23-300) U/L - Radiology Data Radiology results: report reviewed, image reviewed CT abdomen and pelvis without contrast is obtained. Report was reviewed in its entirety. Impression by Dr. Riddle shows moderate cardiomegaly unchanged. Saturating of fluid around the right side transplant kidney which is improved compared to old exam. No hydronephrosis. Dilated fluid and air filled small bowel loops in the mid abdomen suggestive ileus or partial mechanical small bowel obstruction which is a change compared to old exam. Disposition Clinical Impression: Partial small bowel obstruction Disposition: ADMITTED IP TO THIS [facility] Condition: Serious Decision to Admit Reason: Admit from EC Decision Date: 06/24/20 Decision Time: 21:18
[2020-06-24] MEDS ORDERED: ONDANSETRON 4 MG/2 ML VIAL IVP PRN (21:36)
[2020-06-24] MEDS ORDERED: NALOXONE 0.4 MG/ML 1 ML VIAL IV PRN (21:36)
[2020-06-24] MEDS ORDERED: LIDOCAINE URO-JET JELLY 2% 5 ML KIT ENDOTRACHE STA (21:42)
[2020-06-24] MEDS ORDERED: TACROLIMUS 0.5 MG CAP PO STA (22:29)
[2020-06-25 02:31] LABS: Appearance,Urine Clear (Clear); Bilirubin,Urine Negative (Negative); Blood,Urine Negative (Negative); Color,Urine Yellow; Glucose,Urine (UA) Negative (Negative); Ketones,Urine Negative (Negative); Leukocyte Esterase,Urine Large (Negative); Mucus,Urine Rare /hpf; Nitrite,Urine Negative (Negative); PH, Urine 7.5 (5.0-8.0); Protein,Urine Trace (Negative); RBC,Urine 1 /hpf (0-5); Specific Gravity,Urine 1.012 (1.001-1.035); Urobilinogen,Urine <2.0 mg/dL (<2.0); WBC,Urine 5 /hpf (0-5)
[2020-06-25] MEDS: HYDROmorphone 1 MG/ML 1 ML SYRINGE IVP PRN ×6 (03:15→21:24)
[2020-06-25 09:56] VITALS: BMI 21.1
[2020-06-25] MEDS ORDERED: predniSONE 5 MG TAB PO SCH (10:00)
[2020-06-25] MEDS: SODIUM CHLORIDE 0.9% 1,000 ML IV SCH (11:50)
[2020-06-25] MEDS: metroNIDAZOLE-NS PMX 500 MG in SALINE 1 100ML.BAG IVPB SCH ×2 (11:50→18:30)
--- NOTE | 2020-06-25 12:05 | P.GSCN ---
History of Present Illness Consult date: 06/25/20 Reason for Consult: Ileus versus partial small bowel traction History of present illness: This a 55-year-old male who was admitted to Dr. Sanchez service patient was had complaints of abdominal pain. His recent CAT scan shows evidence of a partial small bowel obstruction versus ileus. Patient had a nasogastric tube placed this morning. He's had some vomiting. Past Medical History Past Medical History: Cancer, Heart Failure, Hyperlipidemia, Hypertension, Osteoarthritis (OA), Renal Disease, Sleep Apnea/CPAP/BIPAP Additional Past Medical History / Comment(s): ARDS, hx of DM was tx for dm from age 9 to age 35(had pancreas transplant), uses cpap machine, basal and squamous cell skin cancer, hx rt elbow broken-(sx), charcots foot, pancreatitis, History of Any Multi-Drug Resistant Organisms: None Reported Past Surgical History: Hernia Repair, Joint Replacement Additional Past Surgical History / Comment(s): kidney and pancreas transplant , L knee replacment, rt elbow sx has 7 screws,cataracts removed-lens implants, laser eye sx for retinopathy, fernando foot sx(rt foot bone gravt and lt foot bone shaved), skin cancer removed on his head, Past Anesthesia/Blood Transfusion Reactions: No Reported Reaction Past Psychological History: No Psychological Hx Reported Smoking Status: Never smoker Past Alcohol Use History: Occasional Past Drug Use History: None Reported - Past Family History Mother Family Medical History: Cancer, Diabetes Mellitus Additional Family Medical History / Comment(s): liver cancer Father Family Medical History: CVA/TIA Additional Family Medical History / Comment(s): was smoker had ctroke in his 30's Medications and Allergies Home Medications Medication Instructions Recorded Confirmed Type Pravastatin Sodium [Pravachol] 20 mg PO MOTUTHSA 11/23/13 06/24/20 History Sodium Bicarbonate Tab 1,300 mg PO BID 11/23/13 06/24/20 History Lansoprazole 30 mg PO DAILY 07/14/18 06/24/20 History Apixaban [Eliquis] 5 mg PO BID 09/18/18 06/24/20 History Tamsulosin [Flomax] 0.4 mg PO BID 09/18/18 06/24/20 History Ferrous Sulfate [Iron (65 MG 325 mg PO BID 12/17/18 06/24/20 History Elemental)] Montelukast [Singulair] 10 mg PO HS 12/17/18 06/24/20 History allopurinoL [Zyloprim] 200 mg PO DAILY 12/17/18 06/24/20 History calcitrioL [Rocaltrol] 0.5 mcg PO MOWEFR 12/17/18 06/24/20 History predniSONE 5 mg PO DAILY 03/09/19 06/24/20 History Labetalol HCl 400 mg PO BID 11/15/19 06/24/20 History amLODIPine [Norvasc] 5 mg PO BID 11/15/19 06/24/20 History hydrALAZINE HCL [Apresoline] 50 mg PO TID #90 tab 11/17/19 06/24/20 Rx Calcitriol [Rocaltrol] 0.25 mcg PO SUTUTHSA 03/03/20 06/24/20 History Tacrolimus [Prograf] 0.5 mg PO HS 03/03/20 06/24/20 History Spironolactone [Aldactone] 25 mg PO DAILY #30 tab 03/04/20 06/24/20 Rx Ergocalciferol [Vitamin D2] 50,000 unit PO Q14D 05/02/20 06/24/20 History Tacrolimus [Prograf] 1 mg PO DAILY 05/02/20 06/24/20 History Allergies Allergy/AdvReac Type Severity Reaction Status Date / Time Iodine and Iodide Containing AdvReac HX OF Verified 06/24/20 20:50 Produc KIDNEY DISEASE Surgical - Exam Vital Signs Temp Pulse Resp BP Pulse Ox 98.7 F 67 18 147/84 98 06/24/20 19:10 06/24/20 19:10 06/24/20 19:10 06/24/20 19:10 06/24/20 19:10 - General well developed, well nourished, no distress - Eyes PERRL - ENT normal pinna - Neck no masses - Respiratory normal expansion Results - Labs 06/24/20 19:45 06/24/20 19:45 Abnormal Lab Results - Last 24 Hours (Table) 06/24/20 06/24/20 06/25/20 Range/Units 19:45 19:45 02:00 Hgb 12.9 L (13.0-17.5) gm/dL Hct 38.7 L (39.0-53.0) % Lymphocytes # 0.3 L (1.0-4.8) k/uL Sodium 134 L (137-145) mmol/L Carbon Dioxide 19 L (22-30) mmol/L BUN 35 H (9-20) mg/dL Creatinine 1.68 H (0.66-1.25) mg/dL Glucose 132 H (74-99) mg/dL Lipase 314 H (23-300) U/L Urine Protein Trace H (Negative) Ur Leukocyte Esterase Large H (Negative) Urine Mucus Rare H (None) /hpf Diabetes panel 06/24/20 Range/Units 19:45 Sodium 134 L (137-145) mmol/L Potassium 5.0 (3.5-5.1) mmol/L Chloride 104 (98-107) mmol/L Carbon Dioxide 19 L (22-30) mmol/L BUN 35 H (9-20) mg/dL Creatinine 1.68 H (0.66-1.25) mg/dL Glucose 132 H (74-99) mg/dL Calcium 9.8 (8.4-10.2) mg/dL AST 21 (17-59) U/L ALT 15 (4-49) U/L Alkaline Phosphatase 97 (38-126) U/L Total Protein 7.4 (6.3-8.2) g/dL Albumin 4.6 (3.5-5.0) g/dL Calcium panel 06/24/20 Range/Units 19:45 Calcium 9.8 (8.4-10.2) mg/dL Albumin 4.6 (3.5-5.0) g/dL Pituitary panel 06/24/20 Range/Units 19:45 Sodium 134 L (137-145) mmol/L Potassium 5.0 (3.5-5.1) mmol/L Chloride 104 (98-107) mmol/L Carbon Dioxide 19 L (22-30) mmol/L BUN 35 H (9-20) mg/dL Creatinine 1.68 H (0.66-1.25) mg/dL Glucose 132 H (74-99) mg/dL Calcium 9.8 (8.4-10.2) mg/dL Adrenal panel 06/24/20 Range/Units 19:45 Sodium 134 L (137-145) mmol/L Potassium 5.0 (3.5-5.1) mmol/L Chloride 104 (98-107) mmol/L Carbon Dioxide 19 L (22-30) mmol/L BUN 35 H (9-20) mg/dL Creatinine 1.68 H (0.66-1.25) mg/dL Glucose 132 H (74-99) mg/dL Calcium 9.8 (8.4-10.2) mg/dL Total Bilirubin 0.8 (0.2-1.3) mg/dL AST 21 (17-59) U/L ALT 15 (4-49) U/L Alkaline Phosphatase 97 (38-126) U/L Total Protein 7.4 (6.3-8.2) g/dL Albumin 4.6 (3.5-5.0) g/dL Assessment and Plan Assessment: Ileus versus partial small bowel charge. Patient will continue receive nothing by mouth with nasogastric tube decompression.
--- NOTE | 2020-06-25 12:30 | XR ---
EXAMINATION TYPE: XR chest 1V portable DATE OF EXAM: 06/25/2020 COMPARISON: 05/02/2020 HISTORY: NG tube placement TECHNIQUE: Single frontal view of the chest is obtained. FINDINGS: . Postsurgical change overlying the lung apex. NG tube seen coursing the abdomen likely wi thin the stomach. Coarsened interstitium persists and the heart size enlarged and stable. No pleural effusion or pneumothorax. Biapical pleural thickening. IMPRESSION: 1. NG tube appears in good position. Correlate for interstitial pneumonitis or bronchitis.
--- NOTE | 2020-06-25 12:47 | P.HPIM ---
History of Present Illness H&P Date: 06/25/20 Chief Complaint: abd pain, vomiting HISTORY OF PRESENT ILLNESS This is a 54-year-old male patient of , Dr. Adhikari, Dr. 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 Serrano radiation oncologist at [facility], obstructive sleep apnea on BiPAP, hypertension, hyperlipidemia, benign prostatic hypertrophy. Patient states that he developed abdominal pain about 3 days ago and then also says currently he developed vomiting has been unable to keep anything down. He denies having any fever. He has passed minimal gas. Last bowel movement was 3 days ago. Patient came into [facility] emergency center for evaluation. Patient was afebrile, heart rate 67, blood pressure 147/84, pulse ox 98% on room air. WBC 6.9, hemoglobin 12.9. Platelet count 230. Sodium 134, potassium 5, chloride 104, CO2 19, BUN 35 creatinine 1.68. Blood sugar 132. CAT scan of the abdomen and pelvis without contrast revealed moderate cardiomegaly unchanged. There is fat stranding and fluid around the right side transplant kidney which is improved compared to old exam. No hydronephrosis. Dilated fluid and air filled small bowel loops in the left mid abdomen suggestive of ileus or partial mechanical small bowel obstruction which is new. NG tube placement was attempted in the ER but was unsuccessful. Patient refused initially this morning but is now agreeable for attempt for NG placement. He was admitted to the [facility] floor and consult with general surgery. REVIEW OF SYSTEMS Constitutional: No fever, no chills, no night sweats. No weight change. No weakness, fatigue or lethargy. No daytime sleepiness. EENT: No headache. No blurred vision or double vision, no loss of vision. No loss of Hearing, no ringing in the ears, no dizziness. No nasal drainage or congestion. No epistaxis. No sore throat. Lungs: No shortness of breath, cough, no sputum production. No wheezing. Cardiovascular: No chest pain, no lower extremity edema. No palpitations. No paroxysmal nocturnal dyspnea. No orthopnea. No lightheadedness or dizziness. No syncopal episodes. Abdominal: Reports abdominal pain. Reports nausea, Reports vomiting. No di arrhea. Reports constipation. No bloody or tarry stools. Reports loss of appetite. Genitourinary: No dysuria, increased frequency, urgency. No urinary retention. Musculoskeletal: No myalgias. No muscle weakness, no gait dysfunction, no frequent falls. No back pain. No neck pain. Integumentary: No wounds, no lesions. No rash or pruritus. No unusual bruising. No change in hair or nails. Neurologic: No aphasia. No facial droop. No change in mentation. No head injury. No headache. No paralysis. No paresthesia. Psychiatric: No depression. No anxiety. No mood swings. Endocrine: No abnormal blood sugars. No weight change. No excessive sweating or thirst. No cold intolerance. SOCIAL HISTORY The patient is a lifelong nonsmoker. He drinks alcohol occasionally. No marijuana or illicit drug use. He is and lives at home with his .. FAMILY HISTORY Mother at age 75 from liver cancer. Father is alive at age 85 with no major medical problems. Patient has 2 brothers and 3 sisters with no major medical problems. Patient has one son with no major medical problems.. PHYSICAL EXAMINATION Gen: This is a 54-year-old male. He is resting in bed but appears to be very uncomfortable with active nausea and vomiting, abdominal pain. No respiratory distress is noted. HEENT: Head is atraumatic, normocephalic. Pupils equal, round. Sclerae is anicteric. NECK: Supple. No JVD. No lymphadenopathy. No thyromegaly. LUNGS: Clear to auscultation. No wheezes or rhonchi. No intercostal retractions. HEART: Regular rate and rhythm. Short systolic ejection murmur. ABDOMEN: Soft. Bowel sounds are present. No masses. Left lower quadrant tenderness. EXTREMITIES: Trace bilateral pedal edema. No calf tenderness. NEUROLOGICAL: Patient is awake, alert and oriented x3. Cranial nerves 2 through 12 are grossly intact. ASSESSMENT AND PLAN 1. Acute small bowel obstruction. NG tube, nothing by mouth status, consult with Dr. Martínez. Antibiotics with Levaquin and Flagyl. Hold eliquis. Zofran increased to 8 mg IV every 8 hours as needed. 2. Chronic diastolic heart failure. Hold Aldactone for now. 3. Paroxysmal atrial fibrillation. Hold eliquis 5 mg twice daily, continue labetalol 4 mg twice daily. 4. Squamous cell skin cancer under the care of radiation oncology at [facility]. 5. Hypertension. Continue Norvasc 5 mg twice daily, hydralazine 50 mg 3 times daily, labetalol. 6. Hyperlipidemia. Hold statin. 7. Obstructive sleep apnea. Continue BiPAP. 8. Diabetes mellitus type 1 status post pancreas. Stable. 9. Pancreas and kidney transplant. Consult with nephrology. Continue prednisone 5 mg daily and Prograf 0.5 mg twice daily, calcitriol 10. Benign prostatic hypertrophy. Continue Flomax 0.4 mg daily. 11. DVT prophylaxis. Eliquis on hold for now. SCDs and LAZARO hose. 12. GI prophylaxis. Protonix. Patient will be admitted to the hospital for a minimum of 2 night stay. Discharge plan: Return home Impression and plan of care have been directed as dictated by the signing physician. Chata Garcia nurse practitioner acting as scribe for signing physician. Past Medical History Past Medical History: Cancer, Heart Failure, Hyperlipidemia, Hypertension, Osteoarthritis (OA), Renal Disease, Sleep Apnea/CPAP/BIPAP Additional Past Medical History / Comment(s): ARDS, hx of DM was tx for dm from age 9 to age 35(had pancreas transplant), uses cpap machine, basal and squamous cell skin cancer, hx rt elbow broken-(sx), charcots foot, pancreatitis, History of Any Multi-Drug Resistant Organisms: None Reported Past Surgical History: Hernia Repair, Joint Replacement Additional Past Surgical History / Comment(s): kidney and pancreas transplant , L knee replacment, rt elbow sx has 7 screws,cataracts removed-lens implants, laser eye sx for retinopathy, fernando foot sx(rt foot bone gravt and lt foot bone shaved), skin cancer removed on his head, Past Anesthesia/Blood Transfusion Reactions: No Reported Reaction Past Psychological History: No Psychological Hx Reported Smoking Status: Never smoker Past Alcohol Use History: Occasional Past Drug Use History: None Reported - Past Family History Mother Family Medical History: Cancer, Diabetes Mellitus Additional Family Medical History / Comment(s): liver cancer Father Family Medical History: CVA/TIA Additional Family Medical History / Comment(s): was smoker had ctroke in his 30's Medications and Allergies Home Medications Medication Instructions Recorded Confirmed Type Pravastatin Sodium [Pravachol] 20 mg PO MOTUTHSA 11/23/13 06/24/20 History Sodium Bicarbonate Tab 1,300 mg PO BID 11/23/13 06/24/20 History Lansoprazole 30 mg PO DAILY 07/14/18 06/24/20 History Apixaban [Eliquis] 5 mg PO BID 09/18/18 06/24/20 History Tamsulosin [Flomax] 0.4 mg PO BID 09/18/18 06/24/20 History Ferrous Sulfate [Iron (65 MG 325 mg PO BID 12/17/18 06/24/20 History Elemental)] Montelukast [Singulair] 10 mg PO HS 12/17/18 06/24/20 History allopurinoL [Zyloprim] 200 mg PO DAILY 12/17/18 06/24/20 History calcitrioL [Rocaltrol] 0.5 mcg PO MOWEFR 12/17/18 06/24/20 History predniSONE 5 mg PO DAILY 03/09/19 06/24/20 History Labetalol HCl 400 mg PO BID 11/15/19 06/24/20 History amLODIPine [Norvasc] 5 mg PO BID 11/15/19 06/24/20 History hydrALAZINE HCL [Apresoline] 50 mg PO TID #90 tab 11/17/19 06/24/20 Rx Calcitriol [Rocaltrol] 0.25 mcg PO SUTUTHSA 03/03/20 06/24/20 History Tacrolimus [Prograf] 0.5 mg PO HS 03/03/20 06/24/20 History Spironolactone [Aldactone] 25 mg PO DAILY #30 tab 03/04/20 06/24/20 Rx Ergocalciferol [Vitamin D2] 50,000 unit PO Q14D 05/02/20 06/24/20 History Tacrolimus [Prograf] 1 mg PO DAILY 05/02/20 06/24/20 History Allergies Allergy/AdvReac Type Severity Reaction Status Date / Time Iodine and Iodide Containing AdvReac HX OF Verified 06/24/20 20:50 Produc KIDNEY DISEASE Physical Exam Vitals: Vital Signs Temp Pulse Pulse Resp BP BP Pulse Ox 06/25/20 09:19 98.2 F 79 16 162/84 97 06/25/20 01:02 97.9 F 73 16 132/72 99 06/24/20 22:45 73 16 06/24/20 21:30 72 18 134/78 99 06/24/20 20:45 69 18 137/78 97 06/24/20 19:10 98.7 F 67 18 147/84 98 Intake and Output 06/24/20 06/25/20 06/25/20 22:59 06:59 14:59 Intake Total 0 Balance 0 Intake: Oral 0 Other: # Voids 1 Weight 61.235 kg Results CBC & Chem 7: 06/24/20 19:45 06/24/20 19:45 Labs: Abnormal Lab Results - Last 24 Hours (Table) 06/24/20 06/24/20 06/25/20 Range/Units 19:45 19:45 02:00 Hgb 12.9 L (13.0-17.5) gm/dL Hct 38.7 L (39.0-53.0) % Lymphocytes # 0.3 L (1.0-4.8) k/uL Sodium 134 L (137-145) mmol/L Carbon Dioxide 19 L (22-30) mmol/L BUN 35 H (9-20) mg/dL Creatinine 1.68 H (0.66-1.25) mg/dL Glucose 132 H (74-99) mg/dL Lipase 314 H (23-300) U/L Urine Protein Trace H (Negative) Ur Leukocyte Esterase Large H (Negative) Urine Mucus Rare H (None) /hpf Thrombosis Risk Factor Assmnt - Choose All That Apply Each Factor Represents 1 point: Age 41-60 years Other Risk Factors: No Thrombosis Risk Factor Assessment Total Risk Factor Score: 1 Thrombosis Risk Factor Assessment Level: Low Risk
[2020-06-25] MEDS: amLODIPine 5 MG TAB PO SCH ×2 (13:50→21:36)
[2020-06-25] MEDS: LABETALOL 200 MG TAB PO SCH ×2 (13:50→21:36)
[2020-06-25] MEDS: SODIUM BICARBONATE TAB 650 MG TAB PO SCH ×2 (13:50→21:36)
[2020-06-25] MEDS ORDERED: hydrALAZINE HCL 20 MG/ML 1 ML VIAL IVP PRN (13:52)
[2020-06-25] MEDS: LEVOFLOXACIN 250MG-D5W PMX 250 MG in DEXTROSE/WATER 1 50ML.BAG IVPB SCH (15:01)
[2020-06-25] MEDS: ONDANSETRON 4 MG/2 ML VIAL IVP PRN ×2 (15:10→21:18)
--- NOTE | 2020-06-25 15:31 | P.NPCON ---
History of Present Illness - Reason for Consult Consult date: 06/25/20 acute renal failure - Chief Complaint Nausea vomiting - History of Present Illness 55-year-old gentleman with a history of living related kidney transplant in 2000 and a donor pancreatic transplant. He follows with Dr. Jo as outpatient. Baseline creatinine of 1.2 MG per DL. He takes Prograf 1 mg and 0.5 mg daily along with 5 mg of prednisone. He comes in with abdominal pain computed tomography scan showed partial small bowel obstruction. Currently NG tube was placed he pulled out the NG tube. Mentally on IV fluids at 50 ML's an hour. Serum creatinine of 1.67 MG per DL. Review of Systems Constitutional: Reports as per HPI Past Medical History Past Medical History: Cancer, Heart Failure, Hyperlipidemia, Hypertension, Osteoarthritis (OA), Renal Disease, Sleep Apnea/CPAP/BIPAP Additional Past Medical History / Comment(s): ARDS, hx of DM was tx for dm from age 9 to age 35(had pancreas transplant), uses cpap machine, basal and squamous cell skin cancer, hx rt elbow broken-(sx), charcots foot, pancreatitis, History of Any Multi-Drug Resistant Organisms: None Reported Past Surgical History: Hernia Repair, Joint Replacement Additional Past Surgical History / Comment(s): kidney and pancreas transplant , L knee replacment, rt elbow sx has 7 screws,cataracts removed-lens implants, laser eye sx for retinopathy, fernando foot sx(rt foot bone gravt and lt foot bone shaved), skin cancer removed on his head, Past Anesthesia/Blood Transfusion Reactions: No Reported Reaction Past Psychological History: No Psychological Hx Reported Smoking Status: Never smoker Past Alcohol Use History: Occasional Past Drug Use History: None Reported - Past Family History Mother Family Medical History: Cancer, Diabetes Mellitus Additional Family Medical History / Comment(s): liver cancer Father Family Medical History: CVA/TIA Additional Family Medical History / Comment(s): was smoker had ctroke in his 30's Medications and Allergies Home Medications Medication Instructions Recorded Confirmed Type Pravastatin Sodium [Pravachol] 20 mg PO MOTUTHSA 11/23/13 06/24/20 History Sodium Bicarbonate Tab 1,300 mg PO BID 11/23/13 06/24/20 History Lansoprazole 30 mg PO DAILY 07/14/18 06/24/20 History Apixaban [Eliquis] 5 mg PO BID 09/18/18 06/24/20 History Tamsulosin [Flomax] 0.4 mg PO BID 09/18/18 06/24/20 History Ferrous Sulfate [Iron (65 MG 325 mg PO BID 12/17/18 06/24/20 History Elemental)] Montelukast [Singulair] 10 mg PO HS 12/17/18 06/24/20 History allopurinoL [Zyloprim] 200 mg PO DAILY 12/17/18 06/24/20 History calcitrioL [Rocaltrol] 0.5 mcg PO MOWEFR 12/17/18 06/24/20 History predniSONE 5 mg PO DAILY 03/09/19 06/24/20 History Labetalol HCl 400 mg PO BID 11/15/19 06/24/20 History amLODIPine [Norvasc] 5 mg PO BID 11/15/19 06/24/20 History hydrALAZINE HCL [Apresoline] 50 mg PO TID #90 tab 11/17/19 06/24/20 Rx Calcitriol [Rocaltrol] 0.25 mcg PO SUTUTHSA 03/03/20 06/24/20 History Tacrolimus [Prograf] 0.5 mg PO HS 03/03/20 06/24/20 History Spironolactone [Aldactone] 25 mg PO DAILY #30 tab 03/04/20 06/24/20 Rx Ergocalciferol [Vitamin D2] 50,000 unit PO Q14D 05/02/20 06/24/20 History Tacrolimus [Prograf] 1 mg PO DAILY 05/02/20 06/24/20 History Allergies Allergy/AdvReac Type Severity Reaction Status Date / Time Iodine and Iodide Containing AdvReac HX OF Verified 06/24/20 20:50 Produc KIDNEY DISEASE Physical Exam Vitals: Vital Signs Temp Pulse Pulse Resp BP BP Pulse Ox 06/25/20 09:19 98.2 F 79 16 162/84 97 06/25/20 01:02 97.9 F 73 16 132/72 99 06/24/20 22:45 73 16 06/24/20 21:30 72 18 134/78 99 06/24/20 20:45 69 18 137/78 97 06/24/20 19:10 98.7 F 67 18 147/84 98 Intake and Output 06/25/20 06/25/20 06/25/20 06:59 14:59 22:59 Intake Total 0 Balance 0 Intake: Oral 0 Other: # Voids 1 Weight 61.235 kg No acute distress S1-S2 heard Decreased breath sounds Abdomen distended No edema Results - Lab Results Most recent lab results Calcium 9.8 mg/dL (8.4-10.2) 06/24/20 19:45 06/24/20 19:45 06/24/20 19:45 Assessment and Plan Assessment: #1 acute allograft dysfunction secondary to prerenal process from small bowel obstruction #2 CK D stage III secondary to renal transplant, baseline creatinine 1.2 MG per DL. #3 partial small bowel obstruction #4 hyponatremia, hypovolemic Plan: #1 continue with immunosuppressant medication, Prograf same dose but use as sublingual [crush the tablet and put under the tongue], change prednisone to SOLUMedrol 20 mg IV daily. #2 appreciate surgical input #3 continue with IV fluids #4 labs in the morning #5 check Prograf levels
[2020-06-25] MEDS: TACROLIMUS 1 MG CAP PO SCH (16:14)
[2020-06-25] MEDS: hydrALAZINE HCL 50 MG TAB PO SCH ×2 (17:15→21:37)
[2020-06-25] MEDS: methylPREDNISolone SOD SUCCI 40 MG/ML 1 ML VIAL IV SCH (18:29)
[2020-06-25] MEDS ORDERED: HYDROCORTISONE SUCCINATE 100 MG/2 ML VIAL IV SCH (21:00)
[2020-06-25] MEDS: TACROLIMUS 0.5 MG CAP PO SCH (21:18)
[2020-06-25] MEDS: TAMSULOSIN 0.4 MG CAP.ER.24H PO SCH (21:37)
[2020-06-26] MEDS: metroNIDAZOLE-NS PMX 500 MG in SALINE 1 100ML.BAG IVPB SCH ×3 (03:07→18:25)
[2020-06-26 07:03] LABS: HCT 39.5 % (39.0-53.0); HGB 13.9 gm/dL (13.0-17.5); MCH 30.8 pg (25.0-35.0); MCHC 35.2 g/dL (31.0-37.0); MCV 87.6 fL (80.0-100.0); Mean Platelet Volume 6.6; Platelet Count 213 k/uL (150-450); RBC 4.51 m/uL (4.30-5.90); RDW 13.3 % (11.5-15.5); WBC 8.1 k/uL (3.8-10.6)
[2020-06-26] MEDS: LABETALOL 200 MG TAB PO SCH ×2 (08:58→20:08)
[2020-06-26] MEDS: hydrALAZINE HCL 50 MG TAB PO SCH ×3 (08:58→20:09)
[2020-06-26] MEDS: amLODIPine 5 MG TAB PO SCH ×2 (08:58→20:09)
[2020-06-26] MEDS: TAMSULOSIN 0.4 MG CAP.ER.24H PO SCH ×2 (08:59→20:08)
[2020-06-26] MEDS: SODIUM BICARBONATE TAB 650 MG TAB PO SCH ×2 (08:59→20:07)
[2020-06-26] MEDS: PANTOPRAZOLE 40 MG/10 ML VIAL IVP SCH (09:00)
[2020-06-26] MEDS: methylPREDNISolone SOD SUCCI 40 MG/ML 1 ML VIAL IV SCH (09:00)
--- NOTE | 2020-06-26 09:51 | XR ---
EXAMINATION TYPE: XR abdomen 2V DATE OF EXAM: 06/26/2020 COMPARISON: 03/09/2019 HISTORY: Pain TECHNIQUE: One view abdominal series FINDINGS: The osseous structures are intact. The bowel gas pattern is nonspecific. NG tube noted. Retained fec al debris seen throughout the colon. Prominent small bowel loops in the left abdomen may be related t o localized ileus although partial obstruction not entirely excluded. Deformity of the iliac bone sug gest previous surgery there is arthropathy of the hips. Surgical clips are noted. Vascular calcificat ions noted. Lung bases are clear. IMPRESSION: 1. Nonspecific abdomen.
[2020-06-26] MEDS: ONDANSETRON 4 MG/2 ML VIAL IVP PRN (10:28)
[2020-06-26] MEDS: SODIUM CHLORIDE 0.9% 1,000 ML IV SCH (10:30)
[2020-06-26] MEDS ORDERED: TACROLIMUS 1 MG CAP PO ONE (10:32)
[2020-06-26 10:51] LABS: African American GFR (CKD) 37.2 (60.0-200.0); Albumin 4.7 g/dL (3.80-4.90); Albumin/Globulin Ratio 2.24 (1.60-3.17); Anion Gap 11.4 mmol/L (4.00-12.00); BUN/Creat Ratio 23.18 Ratio (12.00-20.00); Calcium 9.4 mg/dL (8.7-10.3); Carbon Dioxide 25.6 mmol/L (21.6-31.8); Globulin 2.1 g/dL (1.6-3.3); Non-African American GFR(CKD) 32.1 (60.0-200.0); Total Bilirubin 1.1 mg/dL (0.3-1.2); Total Protein 6.8 g/dL (6.2-8.2)
--- NOTE | 2020-06-26 11:08 | P.PN ---
Progress Note - Text Progress Note Date: 06/26/20 The patient had his nasogastric tube placed yesterday. Approximately 2 L of enteric contents aspirated through the nasogastric tube. He feels much better. He's not had any further bowel function. On exam vital signs are stable. Abdomen soft. There is no significant tenderness. Ileus versus partial small bowel charge. Patient can receive NG tube with nasogastric tube decompression.
--- NOTE | 2020-06-26 12:11 | P.PN ---
Subjective Progress Note Date: 06/26/20 HISTORY OF PRESENT ILLNESS This is a 54-year-old male patient of , Dr. Adhikari, Dr. 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 Serrano radiation oncologist at [facility], obstructive sleep apnea on BiPAP, hypertension, hyperlipidemia, benign prostatic hypertrophy. Patient states that he developed abdominal pain about 3 days ago and then also says currently he developed vomiting has been unable to keep anything down. He denies having any fever. He has passed minimal gas. Last bowel movement was 3 days ago. Patient came into [facility] emergency center for evaluation. Patient was afebrile, heart rate 67, blood pressure 147/84, pulse ox 98% on room air. WBC 6.9, hemoglobin 12.9. Platelet count 230. Sodium 134, potassium 5, chloride 104, CO2 19, BUN 35 creatinine 1.68. Blood sugar 132. CAT scan of the abdomen and pelvis without contrast revealed moderate cardiomegaly unchanged. There is fat stranding and fluid around the right side transplant kidney which is improved compared to old exam. No hydronephrosis. Dilated fluid and air filled small bowel loops in the left mid abdomen suggestive of ileus or partial mechanical small bowel obstruction which is new. NG tube placement was attempted in the ER but was unsuccessful. Patient refused initially this morning but is now agreeable for attempt for NG placement. He was admitted to the [facility] floor and consult with general surgery. 06/26: NG tube was placed yesterday and patient has significantly impaired proved pain. 2 L of fluid removed. No longer having nausea or vomiting. He has passed some gas but has not had a bowel movement. He denies any cough or shortness of breath. Bowel sounds are present. Will start the patient on ice chips with nothing by mouth status. Abdominal x-ray ordered revealed nonspecific findings. Patient is followed by general surgery and plan to continue conservative management. Patient has been afebrile, heart rate 85, blood pressure 148/85, pulse ox 96% on room air. Repeat BUN 51 creatinine 2.2. Blood sugar 145. CBC unremarkable. Liver function tests normal. Patient has been seen and followed by nephrology with recommendations to continue immunosuppressant medication with Prograf use as a sublingual crushed tablet under the tongue and prednisone changed to Solu-Medrol 20 mg IV daily. Prograf level ordered. REVIEW OF SYSTEMS Constitutional: No fever, no chills, no night sweats. No weight change. No weakness, fatigue or lethargy. No daytime sleepiness. EENT: No headache. No blurred vision or double vision, no loss of vision. No loss of Hearing, no ringing in the ears, no dizziness. No nasal drainage or congestion. No epistaxis. No sore throat. Lungs: No shortness of breath, cough, no sputum production. No wheezing. Cardiovascular: No chest pain, no lower extremity edema. No palpitations. No paroxysmal nocturnal dyspnea. No orthopnea. No lightheadedness or dizziness. No syncopal episodes. Abdominal: Denies abdominal pain. No nausea, no vomiting. No diarrhea. Reports constipation. No bloody or tarry stools. Reports loss of appetite. Genitourinary: No dysuria, increased frequency, urgency. No urinary retention. Musculoskeletal: No myalgias. No muscle weakness, no gait dysfunction, no frequent falls. No back pain. No neck pain. Integumentary: No wounds, no lesions. No rash or pruritus. No unusual bruising. No change in hair or nails. Neurologic: No aphasia. No facial droop. No change in mentation. No head injury. No headache. No paralysis. No paresthesia. Psychiatric: No depression. No anxiety. No mood swings. Endocrine: No abnormal blood sugars. No weight change. No excessive sweating or thirst. No cold intolerance. PHYSICAL EXAMINATION Gen: This is a 54-year-old male. He is resting in bed and appears to be comfortable. No respiratory distress is noted. HEENT: Head is atraumatic, normocephalic. Pupils equal, round. Sclerae is a nicteric. NECK: Supple. No JVD. No lymphadenopathy. No thyromegaly. LUNGS: Clear to auscultation. No wheezes or rhonchi. No intercostal retractions. HEART: Regular rate and rhythm. Short systolic ejection murmur. ABDOMEN: Soft. Bowel sounds are normal. No masses. no abdominal tenderness. EXTREMITIES: Trace bilateral pedal edema. No calf tenderness. NEUROLOGICAL: Patient is awake, alert and oriented x3. Cranial nerves 2 through 12 are grossly intact. ASSESSMENT AND PLAN 1. Acute ileus versus small bowel obstruction. NG tube, nothing by mouth status except ice chips, consult with Dr. Martínez appreciated. Antibiotics with Levaquin and Flagyl. Hold eliquis. Continue Zofran 8 mg IV every 8 hours as needed. 2. Chronic diastolic heart failure. Hold Aldactone for now. 3. Paroxysmal atrial fibrillation. Hold eliquis 5 mg twice daily, continue labetalol 4 mg twice daily. 4. Squamous cell skin cancer under the care of radiation oncology at [facility]. 5. Hypertension. Continue Norvasc 5 mg twice daily, hydralazine 50 mg 3 times daily, labetalol. Hydralazine 10 mg IV push every 6 hours as needed well and by mouth. 6. Hyperlipidemia. Hold statin. 7. Obstructive sleep apnea. Continue BiPAP. 8. Diabetes mellitus type 1 status post pancreas. Stable. 9. Pancreas and kidney transplant. Consult with nephrology. Prednisone was transitioned IV Solu-Medrol and Prograf 0.5 mg twice daily to be continued crushed sublingual. 10. Benign prostatic hypertrophy. Continue Flomax 0.4 mg daily. 11. DVT prophylaxis. Eliquis on hold for now. SCDs and LAZARO hose. 12. GI prophylaxis. Protonix. Discharge plan: Return home Impression and plan of care have been directed as dictated by the signing physician. Chata Garcia nurse practitioner acting as scribe for signing physician. Objective - Vital Signs Vital signs: Vital Signs Temp 98.2 F 06/26/20 08:57 Pulse 85 06/26/20 08:57 Resp 16 06/26/20 08:57 BP 148/85 06/26/20 08:57 Pulse Ox 96 06/26/20 08:57 Intake & Output 06/25/20 06/26/20 06/26/20 18:59 06:59 18:59 Output Total 1000 300 Balance -1000 -300 Weight 61.235 kg Output: Gastric Drainage 1000 300 Other: # Voids 1 - Labs CBC & Chem 7: 06/26/20 06:26 06/26/20 06:26
--- NOTE | 2020-06-26 14:09 | P.PN ---
Subjective Progress Note Date: 06/26/20 Follow-up for acute kidney injury. Feels better today. Has NG tube in. Admits good urine output. Objective - Vital Signs Vital signs: Vital Signs Temp 98.2 F 06/26/20 08:57 Pulse 85 06/26/20 08:57 Resp 16 06/26/20 08:57 BP 148/85 06/26/20 08:57 Pulse Ox 96 06/26/20 08:57 Intake & Output 06/25/20 06/26/20 06/26/20 18:59 06:59 18:59 Output Total 1000 300 Balance -1000 -300 Weight 61.235 kg Output: Gastric Drainage 1000 300 Other: # Voids 1 - Exam No acute distress S1-S2 heard Abdomen distended No edema - Labs CBC & Chem 7: 06/26/20 06:26 06/26/20 06:26 Labs: Abnormal Lab Results - Last 24 Hours (Table) 06/26/20 Range/Units 06:26 BUN 51.0 H (9.0-27.0) mg/dL Creatinine 2.2 H (0.6-1.5) mg/dL Est GFR (CKD-EPI)AfAm 37.2 L (60.0-200.0) Est GFR (CKD-EPI)NonAf 32.1 L (60.0-200.0) BUN/Creatinine Ratio 23.18 H (12.00-20.00) Ratio Glucose 145 H (70-110) mg/dL Assessment and Plan Assessment: #1 acute allograft dysfunction secondary to prerenal process from small bowel obstruction #2 CK D stage III secondary to renal transplant, baseline creatinine 1.2 MG per DL. #3 partial small bowel obstruction #4 hyponatremia, hypovolemic #5 status post living related kidney and DD pancreas transplant in 2000 Plan: #1 continue with immunosuppressant medication, Prograf same dose but use as sublingual [crush the tablet and put under the tongue], change prednisone to SOLUMedrol 20 mg IV daily. #2 appreciate surgical input #3 continue with IV fluids #4 check Prograf levels #5 renal function worse today. Anticipate to improve. #6 elevated lipase monitor closely with history of pancreatic transplant.
[2020-06-26] MEDS: LEVOFLOXACIN 250MG-D5W PMX 250 MG in DEXTROSE/WATER 1 50ML.BAG IVPB SCH (14:54)
[2020-06-26] MEDS: TACROLIMUS 0.5 MG CAP PO SCH (20:08)
[2020-06-27] MEDS: metroNIDAZOLE-NS PMX 500 MG in SALINE 1 100ML.BAG IVPB SCH ×4 (00:05→23:09)
[2020-06-27] MEDS: SODIUM CHLORIDE 0.9% 1,000 ML IV SCH ×2 (00:07→19:56)
[2020-06-27] MEDS: HYDROmorphone 1 MG/ML 1 ML SYRINGE IVP PRN (02:36)
[2020-06-27] MEDS: ONDANSETRON 4 MG/2 ML VIAL IVP PRN (02:36)
[2020-06-27] MEDS: LABETALOL 200 MG TAB PO SCH ×2 (07:32→19:55)
[2020-06-27] MEDS: methylPREDNISolone SOD SUCCI 40 MG/ML 1 ML VIAL IV SCH (07:32)
[2020-06-27] MEDS: PANTOPRAZOLE 40 MG/10 ML VIAL IVP SCH (07:32)
[2020-06-27] MEDS: hydrALAZINE HCL 50 MG TAB PO SCH ×3 (07:33→19:55)
[2020-06-27] MEDS: SODIUM BICARBONATE TAB 650 MG TAB PO SCH ×2 (07:34→19:54)
[2020-06-27] MEDS: amLODIPine 5 MG TAB PO SCH ×2 (07:34→19:55)
[2020-06-27] MEDS: TAMSULOSIN 0.4 MG CAP.ER.24H PO SCH ×2 (07:34→19:55)
[2020-06-27] MEDS: TACROLIMUS 1 MG CAP PO SCH (07:35)
[2020-06-27 09:08] LABS: African American GFR (CKD) 47.4 (60.0-200.0); Anion Gap 8.9 mmol/L (4.00-12.00); BUN/Creat Ratio 28.89 Ratio (12.00-20.00); Calcium 9.1 mg/dL (8.7-10.3); Carbon Dioxide 26.1 mmol/L (21.6-31.8); Non-African American GFR(CKD) 40.9 (60.0-200.0); Potassium 4.6 mmol/L (3.5-5.5)
--- NOTE | 2020-06-27 13:19 | P.PN ---
Subjective Progress Note Date: 06/27/20 CHIEF COMPLAINT: Abdominal pain HISTORY OF PRESENT ILLNESS: Patient is followed for ileus versus partial small bowel obstruction. Patient is passing gas. NG tube will be removed this morning. He reports that his abdominal pain has improved as well. He denies any nausea. No bowel movement yet. Afebrile creatinine 1.8 PHYSICAL EXAM: VITAL SIGNS: Reviewed. GENERAL: Well-developed in no acute distress. HEENT: No sclera icterus. Extraocular movements grossly intact. Moist buccal mucosa. Head is atraumatic, normocephalic. ABDOMEN: Soft. Mildly distended Nontender. NEUROLOGIC: Alert and oriented. Cranial nerves II through XII grossly intact. ASSESSMENT: 1. Ileus versus partial small bowel obstruction improving PLAN: -Discontinue NG tube today -Start patient on clear liquid diet -Continue supportive care Physician [employer] note has been reviewed by physician. Signing provider agrees with the documented findings, assessment, and plan of care. Objective - Vital Signs Vital signs: Vital Signs Temp 98 F 06/27/20 07:47 Pulse 77 06/27/20 07:47 Resp 16 06/27/20 07:47 BP 143/80 06/27/20 07:47 Pulse Ox 97 06/27/20 07:47 Intake & Output 06/26/20 06/27/20 06/27/20 18:59 06:59 18:59 Intake Total 500 Balance 500 Intake: Intake, IV Titration 500 Amount metroNIDAZOLE-NS PMX 500 500 mg In Saline 1 100ml.bag @ 100 mls/hr IVPB Q8HR [facility] Rx#:[id number] Other: Voiding Method Toilet Toilet # Voids 1 1 - Labs CBC & Chem 7: 06/26/20 06:26 06/27/20 05:41 Labs: Abnormal Lab Results - Last 24 Hours (Table) 06/27/20 Range/Units 05:41 BUN 52.0 H (9.0-27.0) mg/dL Creatinine 1.8 H (0.6-1.5) mg/dL Est GFR (CKD-EPI)AfAm 47.4 L (60.0-200.0) Est GFR (CKD-EPI)NonAf 40.9 L (60.0-200.0) BUN/Creatinine Ratio 28.89 H (12.00-20.00) Ratio Glucose 130 H (70-110) mg/dL
--- NOTE | 2020-06-27 14:53 | PN ---
PROGRESS NOTE Patient is seen for followup for acute kidney injury. Renal function has improved. Creatinine down to 1.8 from 2.2 yesterday. Patient has an NG tube in place. He is trying to eat popsicles and ice and seems to be tolerating it okay. PHYSICAL EXAMINATION: On examination today, blood pressure was 143/80, heart rate 77 per minute. He is afebrile. Examination shows patient is euvolemic with no evidence of edema bilateral lower extremities. Abdomen is soft nontender. [employer] exam grossly intact. LABS: Labs show sodium 141, potassium 4.6, BUN 52, serum creatinine 1.8, hemoglobin 13.9 g/dL UA is unremarkable: Coronavirus negative. Tacrolimus was 9.3. ASSESSMENT: 1. Acute kidney injury with acute allograft nephropathy, currently improved. Continue with IV hydration. 2. Chronic kidney disease stage 3. Baseline creatinine about 1.2 mg/dL. 3. Status post living-related renal transplant and donor pancreas transplant 2000. Prograf level is 9.3. 4. Bowel obstruction, improving. PLAN: Continue with normal saline for now. Continue current immunosuppressive medications and continue surgical management. MMODL / IJN: [id number] / [facility]
[2020-06-27] MEDS ORDERED: bisacodyL 10 MG SUPP RECTAL STA (14:58)
[2020-06-27] MEDS: LEVOFLOXACIN 250MG-D5W PMX 250 MG in DEXTROSE/WATER 1 50ML.BAG IVPB SCH (15:34)
--- NOTE | 2020-06-27 16:44 | P.PN ---
Subjective Progress Note Date: 06/27/20 HISTORY OF PRESENT ILLNESS This is a 54-year-old male patient of , Dr. Adhikari, Dr. 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 Serrano radiation oncologist at [facility], obstructive sleep apnea on BiPAP, hypertension, hyperlipidemia, benign prostatic hypertrophy. Patient states that he developed abdominal pain about 3 days ago and then also says currently he developed vomiting has been unable to keep anything down. He denies having any fever. He has passed minimal gas. Last bowel movement was 3 days ago. Patient came into [facility] emergency center for evaluation. Patient was afebrile, heart rate 67, blood pressure 147/84, pulse ox 98% on room air. WBC 6.9, hemoglobin 12.9. Platelet count 230. Sodium 134, potassium 5, chloride 104, CO2 19, BUN 35 creatinine 1.68. Blood sugar 132. CAT scan of the abdomen and pelvis without contrast revealed moderate cardiomegaly unchanged. There is fat stranding and fluid around the right side transplant kidney which is improved compared to old exam. No hydronephrosis. Dilated fluid and air filled small bowel loops in the left mid abdomen suggestive of ileus or partial mechanical small bowel obstruction which is new. NG tube placement was attempted in the ER but was unsuccessful. Patient refused initially this morning but is now agreeable for attempt for NG placement. He was admitted to the [facility] floor and consult with general surgery. 06/26: NG tube was placed yesterday and patient has significantly impaired proved pain. 2 L of fluid removed. No longer having nausea or vomiting. He has passed some gas but has not had a bowel movement. He denies any cough or shortness of breath. Bowel sounds are present. Will start the patient on ice chips with nothing by mouth status. Abdominal x-ray ordered revealed nonspecific findings. Patient is followed by general surgery and plan to continue conservative management. Patient has been afebrile, heart rate 85, blood pressure 148/85, pulse ox 96% on room air. Repeat BUN 51 creatinine 2.2. Blood sugar 145. CBC unremarkable. Liver function tests normal. Patient has been seen and followed by nephrology with recommendations to continue immunosuppressant medication with Prograf use as a sublingual crushed tablet under the tongue and prednisone changed to Solu-Medrol 20 mg IV daily. Prograf level ordered. 06/27: Patient states he has passing gas but has not had a bowel movement. Dr. Darden has ordered for removal of NG tube today and start clear liquids. Today BUN is 52 and creatinine 1.8. Nephrology is recommending continuing normal saline and immunosuppressive medications. Patient will be resumed on eliquis tonight. REVIEW OF SYSTEMS Constitutional: No fever, no chills, no night sweats. No weight change. No weakness, fatigue or lethargy. No daytime sleepiness. EENT: No headache. No blurred vision or double vision, no loss of vision. No loss of Hearing, no ringing in the ears, no dizziness. No nasal drainage or congestion. No epistaxis. No sore throat. Lungs: No shortness of breath, cough, no sputum production. No wheezing. Cardiovascular: No chest pain, no lower extremity edema. No palpitations. No paroxysmal nocturnal dyspnea. No orthopnea. No lightheadedness or dizziness. No syncopal episodes. Abdominal: Denies abdominal pain. No nausea, no vomiting. No diarrhea. Reports constipation. No bloody or tarry stools. Denies loss of appetite. Genitourinary: No dysuria, increased frequency, urgency. No urinary retention. Musculoskeletal: No myalgias. No muscle weakness, no gait dysfunction, no frequent falls. No back pain. No neck pain. Integumentary: No wounds, no lesions. No rash or pruritus. No unusual bruising. No change in hair or nails. Neurologic: No aphasia. No facial droop. No change in mentation. No head injury. No headache. No paralysis. No paresthesia. Psychiatric: No depression. No anxiety. No mood swings. Endocrine: No abnormal blood sugars. No weight change. No excessive sweating or thirst. No cold intolerance. PHYSICAL EXAMINATION Gen: This is a 54-year-old male. He is resting in bed and appears to be comfortable. No respiratory distress is noted. HEENT: Head is atraumatic, normocephalic. Pupils equal, round. Sclerae is anicteric. NECK: Supple. No JVD. No lymphadenopathy. No thyromegaly. LUNGS: Clear to auscultation. No wheezes or rhonchi. No intercostal retractions. HEART: Regular rate and rhythm. Short systolic ejection murmur. ABDOMEN: Soft. Bowel sounds are normal. No masses. no abdominal tenderness. EXTREMITIES: Trace bilateral pedal edema. No calf tenderness. NEUROLOGICAL: Patient is awake, alert and oriented x3. Cranial nerves 2 through 12 are grossly intact. ASSESSMENT AND PLAN 1. Acute ileus versus small bowel obstruction. NG tube removed, clear liquids, consult with Dr. Martínez appreciated. Antibiotics with Levaquin and Flagyl. Resume eliquis. Continue Zofran 8 mg IV every 8 hours as needed. 2. Chronic diastolic heart failure. Hold Aldactone for now. 3. Paroxysmal atrial fibrillation. Resume eliquis 5 mg twice daily, continue labetalol 4 mg twice daily. 4. Squamous cell skin cancer under the care of radiation oncology at [facility]. 5. Hypertension. Continue Norvasc 5 mg twice daily, hydralazine 50 mg 3 times daily, labetalol. Hydralazine 10 mg IV push every 6 hours as needed well and by mouth. 6. Hyperlipidemia. Hold statin. 7. Obstructive sleep apnea. Continue BiPAP. 8. Diabetes mellitus type 1 status post pancreas. Stable. 9. Pancreas and kidney transplant. Consult with nephrology. Prednisone was transitioned IV Solu-Medrol and Prograf 0.5 mg twice daily to be continued crushed sublingual. 10. Benign prostatic hypertrophy. Continue Flomax 0.4 mg daily. 11. DVT prophylaxis. Eliquis. SCDs and LAZARO hose. 12. GI prophylaxis. Protonix. Discharge plan: Return home Impression and plan of care have been directed as dictated by the signing physician. Chata Garcia nurse practitioner acting as scribe for signing physician. Objective - Vital Signs Vital signs: Vital Signs Temp 98 F 06/27/20 07:47 Pulse 77 06/27/20 07:47 Resp 16 06/27/20 07:47 BP 143/80 06/27/20 07:47 Pulse Ox 97 06/27/20 07:47 Intake & Output 06/26/20 06/27/20 06/27/20 18:59 06:59 18:59 Intake Total 500 Balance 500 Intake: Intake, IV Titration 500 Amount metroNIDAZOLE-NS PMX 500 500 mg In Saline 1 100ml.bag @ 100 mls/hr IVPB Q8HR [facility] Rx#:[id number] Other: Voiding Method Toilet # Voids 1 1 - Labs CBC & Chem 7: 06/26/20 06:26 06/27/20 05:41 Labs: Abnormal Lab Results - Last 24 Hours (Table) 06/26/20 Range/Units 06:26 BUN 51.0 H (9.0-27.0) mg/dL Creatinine 2.2 H (0.6-1.5) mg/dL Est GFR (CKD-EPI)AfAm 37.2 L (60.0-200.0) Est GFR (CKD-EPI)NonAf 32.1 L (60.0-200.0) BUN/Creatinine Ratio 23.18 H (12.00-20.00) Ratio Glucose 145 H (70-110) mg/dL
[2020-06-27] MEDS: TACROLIMUS 0.5 MG CAP PO SCH (19:55)
[2020-06-27] MEDS: APIXABAN 5 MG TAB PO SCH (19:55)
[2020-06-27 20:31] VITALS: RESP 18
[2020-06-28] MEDS: TACROLIMUS 1 MG CAP PO SCH (08:58)
[2020-06-28] MEDS: LABETALOL 200 MG TAB PO SCH (08:58)
[2020-06-28] MEDS: hydrALAZINE HCL 50 MG TAB PO SCH (08:58)
[2020-06-28] MEDS: SODIUM BICARBONATE TAB 650 MG TAB PO SCH (08:58)
[2020-06-28] MEDS: amLODIPine 5 MG TAB PO SCH (08:58)
[2020-06-28] MEDS: TAMSULOSIN 0.4 MG CAP.ER.24H PO SCH (08:58)
[2020-06-28] MEDS: APIXABAN 5 MG TAB PO SCH (08:58)
[2020-06-28] MEDS: metroNIDAZOLE-NS PMX 500 MG in SALINE 1 100ML.BAG IVPB SCH (08:59)
[2020-06-28] MEDS: methylPREDNISolone SOD SUCCI 40 MG/ML 1 ML VIAL IV SCH (08:59)
[2020-06-28] MEDS: PANTOPRAZOLE 40 MG/10 ML VIAL IVP SCH (08:59)
[2020-06-28 09:28] LABS: African American GFR (CKD) 61 (>60 ml/min/1.73 sqM); Anion Gap 11 mmol/L; Blood Urea Nitrogen 38 mg/dL (9-20); Carbon Dioxide 23 mmol/L (22-30); Chloride 102 mmol/L (98-107); Glucose 157 mg/dL (74-99); Potassium 4.1 mmol/L (3.5-5.1); Sodium 136 mmol/L (137-145)
[2020-06-28 09:29] LABS: Calcium 9.3 mg/dL (8.4-10.2); Non-African American GFR(CKD) 53 (>60 ml/min/1.73 sqM)
--- NOTE | 2020-06-28 11:37 | P.PN ---
Subjective Progress Note Date: 06/28/20 CHIEF COMPLAINT: Abdominal pain HISTORY OF PRESENT ILLNESS: Patient is followed for ileus versus partial small bowel obstruction. He is passing gas and did have a bowel movement. He tolerated regular diet this morning. His abdominal pain has improved. He is up and ambulating. Afebrile. PHYSICAL EXAM: VITAL SIGNS: Reviewed. GENERAL: Well-developed in no acute distress. HEENT: No sclera icterus. Extraocular movements grossly intact. Moist buccal mucosa. Head is atraumatic, normocephalic. ABDOMEN: Soft. Mildly distended Nontender. NEUROLOGIC: Alert and oriented. Cranial nerves II through XII grossly intact. ASSESSMENT: 1. Ileus versus partial small bowel obstruction resolving PLAN: -Continue regular diet -Patient can be discharge from surgical standpoint -Patient to follow-up with Dr. amin in 1 week Physician Transit Driver note has been reviewed by physician. Signing provider agrees with the documented findings, assessment, and plan of care. Objective - Vital Signs Vital signs: Vital Signs Temp 97.4 F L 06/28/20 07:50 Pulse 76 06/28/20 07:50 Resp 18 06/28/20 07:50 BP 130/64 06/28/20 07:50 Pulse Ox 97 06/28/20 07:50 Intake & Output 06/27/20 06/28/20 06/28/20 18:59 06:59 18:59 Intake Total 500 456 Output Total 450 Balance 500 6 Intake: Intake, IV Titration 500 Amount metroNIDAZOLE-NS PMX 500 500 mg In Saline 1 100ml.bag @ 100 mls/hr IVPB Q8HR [facility] Rx#:[id number] Oral 456 Output: Urine 450 Other: Voiding Method Toilet Toilet # Voids 3 2 # Bowel Movements 1 - Labs CBC & Chem 7: 06/26/20 06:26 06/28/20 08:41 Labs: Abnormal Lab Results - Last 24 Hours (Table) 06/28/20 Range/Units 08:41 Sodium 136 L (137-145) mmol/L BUN 38 H (9-20) mg/dL Creatinine 1.45 H (0.66-1.25) mg/dL Glucose 157 H (74-99) mg/dL
--- NOTE | 2020-06-28 14:21 | P.DS ---
Providers Date of admission: 06/24/20 21:36 Expected date of discharge: 06/28/20 Attending physician: Miroslava Sanchez Consults: 06/24/20 21:37 Consult Physician Routine Consulting Provider: Charlie Martínez Consult Reason/Comments: partial small bowel obstruction Do you want consulting provider notified?: Yes 06/25/20 09:44 Consult Physician Routine Consulting Provider: Eleonora Jo Consult Reason/Comments: transplant pt, SBO Do you want consulting provider notified?: Yes Primary care physician: Sujit Cartagena [facility] Course: HISTORY OF PRESENT ILLNESS This is a 54-year-old male patient of , Dr. Adhikari, Dr. 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 Serrano radiation oncologist at [facility], obstructive sleep apnea on BiPAP, hypertension, hyperlipidemia, benign prostatic hypertrophy. Patient states that he developed abdominal pain about 3 days ago and then also says currently he developed vomiting has been unable to keep anything down. He denies having any fever. He has passed minimal gas. Last bowel movement was 3 days ago. Patient came into [facility] emergency center for evaluation. Patient was afebrile, heart rate 67, blood pressure 147/84, pulse ox 98% on room air. WBC 6.9, hemoglobin 12.9. Platelet count 230. Sodium 134, potassium 5, chloride 104, CO2 19, BUN 35 creatinine 1.68. Blood sugar 132. CAT scan of the abdomen and pelvis without contrast revealed moderate cardiomegaly unchanged. There is fat stranding and fluid around the right side transplant kidney which is improved compared to old exam. No hydronephrosis. Dilated fluid and air filled small bowel loops in the left mid abdomen suggestive of ileus or partial mechanical small bowel obstruction which is new. NG tube placement was attempted in the ER but was unsuccessful. Patient refused initially this morning but is now agreeable for attempt for NG placement. He was admitted to the [facility] floor and consult with general surgery. 06/26: NG tube was placed yesterday and patient has significantly impaired proved pain. 2 L of fluid removed. No longer having nausea or vomiting. He has passed some gas but has not had a bowel movement. He denies any cough or shortness of breath. Bowel sounds are present. Will start the patient on ice chips with nothing by mouth status. Abdominal x-ray ordered revealed nonspecific findings. Patient is followed by general surgery and plan to continue conservative management. Patient has been afebrile, heart rate 85, blood pressure 148/85, pulse ox 96% on room air. Repeat BUN 51 creatinine 2.2. Blood sugar 145. CBC unremarkable. Liver function tests normal. Patient has been seen and followed by nephrology with recommendations to continue immunosuppressant medication with Prograf use as a sublingual crushed tablet under the tongue and prednisone changed to Solu-Medrol 20 mg IV daily. Prograf level ordered. 06/27: Patient states he has passing gas but has not had a bowel movement. Dr. Darden has ordered for removal of NG tube today and start clear liquids. Today BUN is 52 and creatinine 1.8. Nephrology is recommending continuing normal saline and immunosuppressive medications. Patient will be resumed on eliquis tonight. 06/28: Patient states that he is tolerating the clear diet and we'll plan to advance this to regular. He states he has had 1 bowel movement. He denies any blood in his stools. He states he is feeling well and wishes to go home today. Patient has been afebrile, heart rate 76, blood pressure 130/64, pulse ox 97% on room air. Sodium 136, BUN 38 and creatinine 1.45. Blood sugar 157. Patient will be discharged home today in stable condition. ASSESSMENT AND PLAN 1. Acute ileus versus small bowel obstruction. 2. Chronic diastolic heart failure. 3. Paroxysmal atrial fibrillation. 4. Squamous cell skin cancer under the care of radiation oncology at [facility]. 5. Hypertension. 6. Hyperlipidemia. 7. Obstructive sleep apnea. 8. Diabetes mellitus type 1 status post pancreas transplant. 9. Pancreas and kidney transplant. 10. Benign prostatic hypertrophy. Discharge plan: Return home Impression and plan of care have been directed as dictated by the signing physician. Chata Garcia nurse practitioner acting as scribe for signing physician. Patient Condition at Discharge: Good Plan - Discharge Summary Discharge Rx Participant: No New Discharge Prescriptions: New metroNIDAZOLE [Flagyl] 500 mg PO Q8HR #9 tab Continue Pravastatin Sodium [Pravachol] 20 mg PO MOTUTHSA Sodium Bicarbonate Tab 1,300 mg PO BID Lansoprazole 30 mg PO DAILY Tamsulosin [Flomax] 0.4 mg PO BID Apixaban [Eliquis] 5 mg PO BID Ferrous Sulfate [Iron (65 MG Elemental)] 325 mg PO BID calcitrioL [Rocaltrol] 0.5 mcg PO MOWEFR allopurinoL [Zyloprim] 200 mg PO DAILY Montelukast [Singulair] 10 mg PO HS predniSONE 5 mg PO DAILY amLODIPine [Norvasc] 5 mg PO BID Labetalol HCl 400 mg PO BID hydrALAZINE HCL [Apresoline] 50 mg PO TID #90 tab Calcitriol [Rocaltrol] 0.25 mcg PO SUTUTHSA Tacrolimus [Prograf] 0.5 mg PO HS Spironolactone [Aldactone] 25 mg PO DAILY #30 tab Ergocalciferol [Vitamin D2 (DRISDOL)] 50,000 unit PO Q14D Tacrolimus [Prograf] 1 mg PO DAILY Discharge Medication List Pravastatin Sodium [Pravachol] 20 mg PO MOTUTHSA 11/23/13 [History] Sodium Bicarbonate Tab 1,300 mg PO BID 11/23/13 [History] Lansoprazole 30 mg PO DAILY 07/14/18 [History] Apixaban [Eliquis] 5 mg PO BID 09/18/18 [History] Tamsulosin [Flomax] 0.4 mg PO BID 09/18/18 [History] Ferrous Sulfate [Iron (65 MG Elemental)] 325 mg PO BID 12/17/18 [History] Montelukast [Singulair] 10 mg PO HS 12/17/18 [History] allopurinoL [Zyloprim] 200 mg PO DAILY 12/17/18 [History] calcitrioL [Rocaltrol] 0.5 mcg PO MOWEFR 12/17/18 [History] predniSONE 5 mg PO DAILY 03/09/19 [History] Labetalol HCl 400 mg PO BID 11/15/19 [History] amLODIPine [Norvasc] 5 mg PO BID 11/15/19 [History] hydrALAZINE HCL [Apresoline] 50 mg PO TID #90 tab 11/17/19 [Rx] Calcitriol [Rocaltrol] 0.25 mcg PO SUTUTHSA 03/03/20 [History] Tacrolimus [Prograf] 0.5 mg PO HS 03/03/20 [History] Spironolactone [Aldactone] 25 mg PO DAILY #30 tab 03/04/20 [Rx] Ergocalciferol [Vitamin D2 (DRISDOL)] 50,000 unit PO Q14D 05/02/20 [History] Tacrolimus [Prograf] 1 mg PO DAILY 05/02/20 [History] metroNIDAZOLE [Flagyl] 500 mg PO Q8HR #9 tab 06/28/20 [Rx] Follow up Appointment(s)/Referral(s): Charlie Martínez MD [STAFF PHYSICIAN] - 07/07/20 2:15 pm Sujit Cartagena MD [Primary Care Provider] - 1 Week (Staff unable to reach office at time of discharge please call SaturdayJune 28 to set up a follow up appointment) Patient Instructions/Handouts: Bowel Obstruction (DC) Discharge Disposition: HOME SELF-CARE
[2020-06-28 14:25] VITALS: BP 132/76; PULSE 69; TEMP 97.6
[2020-06-28] MEDS: LEVOFLOXACIN 250MG-D5W PMX 250 MG in DEXTROSE/WATER 1 50ML.BAG IVPB SCH (14:45)
--- NOTE | 2020-06-28 16:51 | PN ---
PROGRESS NOTE The patient is seen for followup for acute kidney injury. His renal function has improved. NG tube has been removed. The patient is tolerating oral intake and there are plans for possible discharge today. On examination today, blood pressure was 130/64, heart rate 76 per minute. He is afebrile. Examination shows no evidence of edema, bilateral lower extremities. Patient is euvolemic. Abdomen was not examined; however, patient states that he has no pain. Labs show sodium 136, potassium 4.1, BUN 38, serum creatinine 1.45. ASSESSMENT: 1. Acute kidney injury, prerenal, currently improved. 2. Status post living-related renal transplant and -donor pancreas transplant, currently stable. 3. Bowel obstruction, status post removal of NG tube, tolerating oral intake. PLAN: Continue current immunosuppressive medications. Follow up as outpatient in 1-2 weeks. MMJATINDERL / AHMETN: [id number] /
== END 2020-06-28 15:03 | disposition home or self-care (01) | DRG 389 ==
LOC: EC 19:07 → 5NMEDONC 21:36
PROVIDERS: ADMIT Family Medicine; ATTEND Family Medicine
PROC: 0D9670Z Drainage of Stomach with Drainage Device, Via Natural or Artificial Opening (ICD-10-PCS; principal; 2020-06-25)
DX: K56.600 Partial intestinal obstruction, unspecified as to cause (principal); I13.0 Hypertensive heart and chronic kidney disease with heart failure and stage 1 through stage 4 chronic kidney disease, or unspecified chronic kidney disease; I50.32 Chronic diastolic (congestive) heart failure; E87.1 Hypo-osmolality and hyponatremia; N17.9 Acute kidney failure, unspecified; Z94.83 Pancreas transplant status; Z94.0 Kidney transplant status; K56.7 Ileus, unspecified; G47.33 Obstructive sleep apnea (adult) (pediatric); N18.30 Chronic kidney disease, stage 3 unspecified; Z20.822 Contact with and (suspected) exposure to COVID-19; N40.0 Benign prostatic hyperplasia without lower urinary tract symptoms; I48.0 Paroxysmal atrial fibrillation; E10.22 Type 1 diabetes mellitus with diabetic chronic kidney disease; E78.5 Hyperlipidemia, unspecified; E86.1 Hypovolemia; C44.92 Squamous cell carcinoma of skin, unspecified; Z96.652 Presence of left artificial knee joint; Z96.1 Presence of intraocular lens; M14.679 Charcot's joint, unspecified ankle and foot; E10.319 Type 1 diabetes mellitus with unspecified diabetic retinopathy without macular edema; Z79.01 Long term (current) use of anticoagulants; Z80.0 Family history of malignant neoplasm of digestive organs; Z79.4 Long term (current) use of insulin; Z85.828 Personal history of other malignant neoplasm of skin; Z79.899 Other long term (current) drug therapy; Z83.3 Family history of diabetes mellitus; Z91.041 Radiographic dye allergy status; Z98.49 Cataract extraction status, unspecified eye; Z98.890 Other specified postprocedural states
CPT/HCPCS: 36415; 70490; 71045; 74019; 74176; 80048; 80053; 80197; 81001; 82150; 83605; 83690; 85025; 85027; 87635; 96374; 96375; 96376; 99285

== ENCOUNTER → 2020-10-21 | Outpatient (CLI) | payer MEDICARE ==
--- NOTE | 2020-10-24 10:22 | PE ---
Nuclear medicine PET/CT HISTORY: Head and neck carcinoma, subsequent, C 44.42 Patient received 10.5 mCi F-18 FDG intravenously delayed scanning was performed from the skull base t o the mid thighs. Localization and attenuation correction CT scan was performed. Small [id number] imaging obtained through the head and neck Chest and neck: Along the supraclavicular region, anterior cervical chain on the left there is hyperm etabolic activity present, SUV approximately 12.6, anterior cervical chain on the right region shows some uptake, SUV 3.6. Uptake thought present along the musculature rather than gwen. There is some a rtifact due to patient's dental amalgam present. Some muscular uptake is present. Postop changes are present along the left neck, some mild uptake is present along the region just deep to to the left st ernocleidomastoid muscle, SUV 2.9. There is no mediastinal, axillary, or hilar uptake, shotty nodes are present along the prevascular re gion, superior mediastinum, retrocaval pretracheal region. The heart is enlarged. No pleural or peric ardial effusion. There are coronary artery calcifications. No evident lung mass. ABDOMEN: No evident liver mass. No retroperitoneal adenopathy. The kidneys are atrophic. There is no ascites. Transplant kidney noted in the right lower quadrant. Some artifact noted to the left of the urinary bladder, there are multiple surgical clips present. No pelvic adenopathy. Dense vascular calc ifications are present. Osseous structures show no suspicious uptake. IMPRESSION: Nonspecific uptake noted within the neck as described. Postop changes.
== END | disposition home or self-care (01) ==
LOC: RADPETMAIN 08:53
PROVIDERS: ATTEND Radiology Radiation Oncology
DX: C44.42 Squamous cell carcinoma of skin of scalp and neck (principal)
CPT/HCPCS: 78816; A9552

== ENCOUNTER 2020-10-23 04:08 | Inpatient (IN) | payer MEDICARE ==
--- NOTE | 2020-10-23 04:16 | ED ---
SOB HPI - General Chief Complaint: Shortness of Breath Stated Complaint: STONE Time Seen by Provider: 10/23/20 04:09 Source: patient, RN notes reviewed, old records reviewed Mode of arrival: ambulatory Limitations: no limitations - History of Present Illness Initial Comments: This is a 55-year-old male DF for evaluation. Patient Dese for evaluation of se naeem shortness of breath. Patient has COPD CHF history he has been vaccinated for coronavirus twice second vaccination greater than a month ago. Patient feels very weak lightheaded dizzy overall not feeling well. He states when he woke up he did take his take his oxygen at home and was in the 70s. Patient presents to ER with persistent shortness of breath but no chest pain. MD Complaint: shortness of breath, cough, anxiety -: hour(s) Severity: severe Severity scale (1-10): 10 Quality: other (no pain) Consistency: constant Improves With: oxygen, rest, bronchodilators Worsens With: exertion, movement Known History Of: COPD, congestive heart failure Context: recent URI Associated Symptoms: cough, sputum production Treatments Prior to Arrival: none - Related Data Home Medications Medication Instructions Recorded Confirmed Pravastatin Sodium [Pravachol] 20 mg PO MOTUTHSA 11/23/13 06/24/20 Sodium Bicarbonate Tab 1,300 mg PO BID 11/23/13 06/24/20 Lansoprazole 30 mg PO DAILY 07/14/18 06/24/20 Apixaban [Eliquis] 5 mg PO BID 09/18/18 06/24/20 Tamsulosin [Flomax] 0.4 mg PO BID 09/18/18 06/24/20 Ferrous Sulfate [Iron (65 MG 325 mg PO BID 12/17/18 06/24/20 Elemental)] Montelukast [Singulair] 10 mg PO HS 12/17/18 06/24/20 allopurinoL [Zyloprim] 200 mg PO DAILY 12/17/18 06/24/20 calcitrioL [Rocaltrol] 0.5 mcg PO MOWEFR 12/17/18 06/24/20 predniSONE 5 mg PO DAILY 03/09/19 06/24/20 Labetalol HCl 400 mg PO BID 11/15/19 06/24/20 amLODIPine [Norvasc] 5 mg PO BID 11/15/19 06/24/20 Tacrolimus [Prograf] 0.5 mg PO HS 03/03/20 06/24/20 calcitrioL [Rocaltrol] 0.25 mcg PO SUTUTHSA 03/03/20 06/24/20 Ergocalciferol [Vitamin D2 50,000 unit PO Q14D 05/02/20 06/24/20 (DRISDOL)] Tacrolimus [Prograf] 1 mg PO DAILY 05/02/20 06/24/20 Previous Rx's Medication Instructions Recorded hydrALAZINE HCL [Apresoline] 50 mg PO TID #90 tab 11/17/19 Spironolactone [Aldactone] 25 mg PO DAILY #30 tab 03/04/20 metroNIDAZOLE [Flagyl] 500 mg PO Q8HR #9 tab 06/28/20 Allergies Allergy/AdvReac Type Severity Reaction Status Date / Time Iodine and Iodide Containing AdvReac HX OF Verified 10/23/20 04:13 Produc KIDNEY DISEASE Review of Systems ROS Statement: Those systems with pertinent positive or pertinent negative responses have been documented in the HPI. ROS Other: All systems not noted in ROS Statement are negative. Past Medical History Past Medical History: Cancer, Heart Failure, Hyperlipidemia, Hypertension, Osteoarthritis (OA), Renal Disease, Sleep Apnea/CPAP/BIPAP Additional Past Medical History / Comment(s): ARDS, hx of DM was tx for dm from age 9 to age 35(had pancreas transplant), uses cpap machine, basal and squamous cell skin cancer, hx rt elbow broken-(sx), charcots foot, pancreatitis, History of Any Multi-Drug Resistant Organisms: None Reported Past Surgical History: Hernia Repair, Joint Replacement Additional Past Surgical History / Comment(s): kidney and pancreas transplant , L knee replacment, rt elbow sx has 7 screws,cataracts removed-lens implants, laser eye sx for retinopathy, fernando foot sx(rt foot bone gravt and lt foot bone shaved), skin cancer removed on his head, Past Anesthesia/Blood Transfusion Reactions: No Reported Reaction Past Psychological History: No Psychological Hx Reported Smoking Status: Never smoker Past Alcohol Use History: Occasional Past Drug Use History: None Reported - Past Family History Mother Family Medical History: Cancer, Diabetes Mellitus Additional Family Medical History / Comment(s): liver cancer Father Family Medical History: CVA/TIA Additional Family Medical History / Comment(s): was smoker had ctroke in his 30's General Exam Limitations: no limitations General appearance: alert, in no apparent distress, anxious, in distress Head exam: Present: atraumatic, normocephalic, normal inspection Eye exam: Present: normal appearance, PERRL, EOMI. Absent: scleral icterus, conjunctival injection, periorbital swelling ENT exam: Present: normal exam, mucous membranes dry Neck exam: Present: normal inspection. Absent: tenderness, meningismus, lymphadenopathy Respiratory exam: Present: respiratory distress, wheezes, accessory muscle use, decreased breath sounds, prolonged expiratory. Absent: rales, rhonchi, stridor Cardiovascular Exam: Present: regular rate, normal rhythm, normal heart sounds. Absent: systolic murmur, diastolic murmur, rubs, gallop, clicks GI/Abdominal exam: Present: soft, normal bowel sounds. Absent: distended, tenderness, guarding, rebound, rigid Extremities exam: Present: normal inspection, full ROM, normal capillary refill. Absent: tenderness, pedal edema, joint swelling, calf tenderness Back exam: Present: normal inspection Neurological exam: Present: alert, oriented X3, CN II-XII intact Psychiatric exam: Present: normal affect, normal mood Skin exam: Present: warm, dry, intact, normal color. Absent: rash Course Vital Signs 10/23/20 10/23/20 10/23/20 04:09 04:43 04:55 Temperature 98 F Pulse Rate 88 82 Respiratory 34 H 33 H Rate Blood Pressure 145/72 O2 Sat by Pulse 88 L Oximetry 10/23/20 05:55 Temperature Pulse Rate 84 Respiratory 22 Rate Blood Pressure 144/77 O2 Sat by Pulse 92 L Oximetry - Reevaluation(s) Reevaluation #1: 10/23/20 05:29 Medical record is reviewed Patient still with significant shortness of breath Reevaluation #2: 10/23/20 06:30 Spoke with family regarding findings, questions answered Reevaluation #3: 10/23/20 06:30 Oxygen is improved but still short of breath - Consultations Consultation #1: Spoke with Dr. Zepeda who will admit the patient Medical Decision Making - Medical Decision Making 55 female DF for evaluation severe shortness of breath unable to catch his breath COPD CHF with hypoxia. Patient be admitted for cardiopulmonary care - Lab Data Result diagrams: 10/23/20 04:34 10/23/20 04:34 Lab Results 10/23/20 10/23/20 10/23/20 Range/Units 04:34 04:34 04:34 WBC 9.4 (3.8-10.6) k/uL RBC 3.49 L (4.30-5.90) m/uL Hgb 11.3 L (13.0-17.5) gm/dL Hct 31.3 L (39.0-53.0) % MCV 89.7 (80.0-100.0) fL MCH 32.3 (25.0-35.0) pg MCHC 36.1 (31.0-37.0) g/dL RDW 14.3 (11.5-15.5) % Plt Count 115 L (150-450) k/uL MPV 7.0 Neutrophils % 85 % Lymphocytes % 5 % Monocytes % 9 % Eosinophils % 1 % Basophils % 0 % Neutrophils # 8.0 H (1.3-7.7) k/uL Lymphocytes # 0.4 L (1.0-4.8) k/uL Monocytes # 0.8 (0-1.0) k/uL Eosinophils # 0.0 (0-0.7) k/uL Basophils # 0.0 (0-0.2) k/uL PT 11.2 (9.0-12.0) sec INR 1.1 (<1.2) APTT 27.8 (22.0-30.0) sec Sodium 134 L (137-145) mmol/L Potassium 3.9 (3.5-5.1) mmol/L Chloride 103 (98-107) mmol/L Carbon Dioxide 23 (22-30) mmol/L Anion Gap 8 mmol/L BUN 28 H (9-20) mg/dL Creatinine 1.51 H (0.66-1.25) mg/dL Est GFR (CKD-EPI)AfAm 59 (>60 ml/min/1.73 sqM) Est GFR (CKD-EPI)NonAf 51 (>60 ml/min/1.73 sqM) Glucose 123 H (74-99) mg/dL Plasma Lactic Acid Jose (0.7-2.0) mmol/L Calcium 8.9 (8.4-10.2) mg/dL Magnesium 1.4 L (1.6-2.3) mg/dL Total Bilirubin 1.6 H (0.2-1.3) mg/dL AST 31 (17-59) U/L ALT 42 (4-49) U/L Alkaline Phosphatase 167 H (38-126) U/L Lactate Dehydrogenase 520 (313-618) U/L Creatine Kinase 33 L (55-170) U/L Troponin I (0.000-0.034) ng/mL C-Reactive Protein 8.3 H (<1.0) mg/dL NT-Pro-B Natriuret Pep pg/mL Total Protein 5.6 L (6.3-8.2) g/dL Albumin 3.2 L (3.5-5.0) g/dL Coronavirus (PCR) (Not Detectd) 10/23/20 10/23/20 10/23/20 Range/Units 04:34 04:34 04:34 WBC (3.8-10.6) k/uL RBC (4.30-5.90) m/uL Hgb (13.0-17.5) gm/dL Hct (39.0-53.0) % MCV (80.0-100.0) fL MCH (25.0-35.0) pg MCHC (31.0-37.0) g/dL RDW (11.5-15.5) % Plt Count (150-450) k/uL MPV Neutrophils % % Lymphocytes % % Monocytes % % Eosinophils % % Basophils % % Neutrophils # (1.3-7.7) k/uL Lymphocytes # (1.0-4.8) k/uL Monocytes # (0-1.0) k/uL Eosinophils # (0-0.7) k/uL Basophils # (0-0.2) k/uL PT (9.0-12.0) sec INR (<1.2) APTT (22.0-30.0) sec Sodium (137-145) mmol/L Potassium (3.5-5.1) mmol/L Chloride (98-107) mmol/L Carbon Dioxide (22-30) mmol/L Anion Gap mmol/L BUN (9-20) mg/dL Creatinine (0.66-1.25) mg/dL Est GFR (CKD-EPI)AfAm (>60 ml/min/1.73 sqM) Est GFR (CKD-EPI)NonAf (>60 ml/min/1.73 sqM) Glucose (74-99) mg/dL Plasma Lactic Acid Jose 0.7 (0.7-2.0) mmol/L Calcium (8.4-10.2) mg/dL Magnesium (1.6-2.3) mg/dL Total Bilirubin (0.2-1.3) mg/dL AST (17-59) U/L ALT (4-49) U/L Alkaline Phosphatase (38-126) U/L Lactate Dehydrogenase (313-618) U/L Creatine Kinase (55-170) U/L Troponin I 0.012 (0.000-0.034) ng/mL C-Reactive Protein (<1.0) mg/dL NT-Pro-B Natriuret Pep 4570 pg/mL Total Protein (6.3-8.2) g/dL Albumin (3.5-5.0) g/dL Coronavirus (PCR) (Not Detectd) 10/23/20 Range/Units 05:14 WBC (3.8-10.6) k/uL RBC (4.30-5.90) m/uL Hgb (13.0-17.5) gm/dL Hct (39.0-53.0) % MCV (80.0-100.0) fL MCH (25.0-35.0) pg MCHC (31.0-37.0) g/dL RDW (11.5-15.5) % Plt Count (150-450) k/uL MPV Neutrophils % % Lymphocytes % % Monocytes % % Eosinophils % % Basophils % % Neutrophils # (1.3-7.7) k/uL Lymphocytes # (1.0-4.8) k/uL Monocytes # (0-1.0) k/uL Eosinophils # (0-0.7) k/uL Basophils # (0-0.2) k/uL PT (9.0-12.0) sec INR (<1.2) APTT (22.0-30.0) sec Sodium (137-145) mmol/L Potassium (3.5-5.1) mmol/L Chloride (98-107) mmol/L Carbon Dioxide (22-30) mmol/L Anion Gap mmol/L BUN (9-20) mg/dL Creatinine (0.66-1.25) mg/dL Est GFR (CKD-EPI)AfAm (>60 ml/min/1.73 sqM) Est GFR (CKD-EPI)NonAf (>60 ml/min/1.73 sqM) Glucose (74-99) mg/dL Plasma Lactic Acid Jose (0.7-2.0) mmol/L Calcium (8.4-10.2) mg/dL Magnesium (1.6-2.3) mg/dL Total Bilirubin (0.2-1.3) mg/dL AST (17-59) U/L ALT (4-49) U/L Alkaline Phosphatase (38-126) U/L Lactate Dehydrogenase (313-618) U/L Creatine Kinase (55-170) U/L Troponin I (0.000-0.034) ng/mL C-Reactive Protein (<1.0) mg/dL NT-Pro-B Natriuret Pep pg/mL Total Protein (6.3-8.2) g/dL Albumin (3.5-5.0) g/dL Coronavirus (PCR) Not Detected (Not Detectd) - EKG Data -: EKG Interpreted by Me (EKG is sinus rhythm 80, [place] 164 QRS 76 QTC 456) - Radiology Data Radiology results: report reviewed (Chest x-ray does show CHF), image reviewed Critical Care Time Critical Care Time: Yes Total Critical Care Time: 31 Disposition Clinical Impression: CHF exacerbation, COPD exacerbation, Hypoxia Disposition: ADMITTED IP TO THIS HOSP Condition: Fair Is patient prescribed a controlled substance at d/c from ED?: No
[2020-10-23] MEDS ORDERED: ALBUTEROL NEBULIZED 2.5 MG/3 ML INHALATION STA (04:22)
[2020-10-23] MEDS ORDERED: methylPREDNISolone SOD SUCCI 125 MG/2 ML VIAL IV STA (04:22)
[2020-10-23] MEDS ORDERED: SODIUM CHLORIDE 0.9% 1,000 ML IV STA ×2 (04:22)
[2020-10-23] MEDS ORDERED: IPRATROPIUM 0.5 MG/2.5 ML NEBU INHALATION STA (04:22)
[2020-10-23] MEDS ORDERED: MORPHINE SULFATE 4 MG/ML SYRINGE IVP STA (04:32)
[2020-10-23] MEDS ORDERED: LORazepam 2 MG/ML INJ IV STA (04:32)
[2020-10-23 04:47] LABS: Basophils % (A) 0 %; Eosinophils % (A) 1 %; HCT 31.3 % (39.0-53.0); HGB 11.3 gm/dL (13.0-17.5); Lymphocytes # (A) 0.4 k/uL (1.0-4.8); Lymphocytes % (A) 5 %; MCH 32.3 pg (25.0-35.0); MCHC 36.1 g/dL (31.0-37.0); MCV 89.7 fL (80.0-100.0); Monocytes # (A) 0.8 k/uL (0-1.0); Monocytes % (A) 9 %; Neutrophils % (A) 85 %; Platelet Count 115 k/uL (150-450); RBC 3.49 m/uL (4.30-5.90); RDW 14.3 % (11.5-15.5); WBC 9.4 k/uL (3.8-10.6)
[2020-10-23 04:57] LABS: INR 1.1 (<1.2); Partial Thromboplastin Time 27.8 sec (22.0-30.0); Prothrombin Time 11.2 sec (9.0-12.0)
[2020-10-23 05:07] LABS: Albumin 3.2 g/dL (3.5-5.0); Potassium 3.9 mmol/L (3.5-5.1); Total Protein 5.6 g/dL (6.3-8.2)
[2020-10-23 05:11] LABS: C Reactive Protein 8.3 mg/dL (<1.0); Calcium 8.9 mg/dL (8.4-10.2); Magnesium 1.4 mg/dL (1.6-2.3); Total Bilirubin 1.6 mg/dL (0.2-1.3)
[2020-10-23] MEDS ORDERED: IPRATROPIUM-ALBUTEROL 3 ML NEB INHALATION PRN (05:17)
--- NOTE | 2020-10-23 05:33 | XR ---
EXAM: XR Chest, 2 Views CLINICAL HISTORY: ITS.REASON XR Reason: difficulty breathing TECHNIQUE: Frontal and lateral views of the chest. COMPARISON: June 25, 2020 FINDINGS: Lungs: Lungs are well inflated with prominent central pulmonary vasculature and mild bilateral perihilar bibasilar hazy increased density suspicious for pulmonary edema/CHF. Pleural space: Unremarkable. No pneumothorax. Heart: The cardiac silhouette is enlarged. Mediastinum: Unremarkable. Bones/joints: Mild osteophytosis in the lower thoracic spine. Soft tissues: There are surgical clips in the left neck base. Upper abdomen: No pneumoperitoneum was seen under the diaphragm. IMPRESSION: Cardiomegaly with prominent central pulmonary vasculature and mild bilateral perihilar bibasilar hazy increased density suspicious for pulmonary edema/CHF.
[2020-10-23] MEDS: methylPREDNISolone SOD SUCCI 125 MG/2 ML VIAL IV SCH ×2 (06:31→12:24)
[2020-10-23] MEDS ORDERED: ENOXAPARIN 40 MG/0.4 ML SYRINGE SQ SCH (09:00)
[2020-10-23] MEDS: ALBUTEROL NEBULIZED 2.5 MG/3 ML INHALATION SCH ×4 (09:23→21:12)
[2020-10-23] MEDS ORDERED: FUROSEMIDE 10 MG/ML 2 ML VIAL IV ONE (11:57)
--- NOTE | 2020-10-23 11:59 | P.NPCON ---
History of Present Illness - Reason for Consult chronic renal failure - History of Present Illness Reason for the physician: Chronic kidney disease and renal transplant management History of present illness: Patient is a 55-year-old male seen in renal consultation for chronic kidney disease and renal transplant management. Patient received her living related kidney transplant in 2000 as well as a donor pancreas transplant. Patient has chronic disease stage IIIa with baseline creatinine in the range of 1.2-1.5. He is maintained on Prograf and prednisone outpatient. Patient presented to the hospital with shortness of breath. Patient states shortness of breath began middle of last night. He checked his oxygen saturation which was 72% and therefore came to the hospital. He denies any fever or chills. No cough. No edema. Good urine output. No hematuria or dysuria. Oral intake is good. No vomiting or diarrhea. Denies use of nonsteroidals. He is currently receiving IV steroids. Blood pressures stable. He is on 2 L nasal cannula. Chest x-ray was suggestive of mild vascular congestion. Patient has history of diastolic CHF. Vital signs are stable. General: The patient appeared well nourished and normally developed. HEENT: Head exam is unremarkable. Neck is without jugular venous distension. LUNGS: Breath sounds decreased. HEART: Rate and Rhythm are regular. ABDOMEN: Soft, nontender. EXTREMITITES: No edema. Past Medical History Past Medical History: Cancer, Heart Failure, Hyperlipidemia, Hypertension, Osteoarthritis (OA), Renal Disease, Sleep Apnea/CPAP/BIPAP Additional Past Medical History / Comment(s): ARDS, hx of DM was tx for dm from age 9 to age 35(had pancreas transplant), uses cpap machine, basal and squamous cell skin cancer, hx rt elbow broken-(sx), charcots foot, pancreatitis, History of Any Multi-Drug Resistant Organisms: None Reported Past Surgical History: Hernia Repair, Joint Replacement Additional Past Surgical History / Comment(s): kidney and pancreas transplant , L knee replacment, rt elbow sx has 7 screws,cataracts removed-lens implants, laser eye sx for retinopathy, fernando foot sx(rt foot bone gravt and lt foot bone shaved), skin cancer removed on his head, Past Anesthesia/Blood Transfusion Reactions: No Reported Reaction Past Psychological History: No Psychological Hx Reported Smoking Status: Never smoker Past Alcohol Use History: Occasional Past Drug Use History: None Reported - Past Family History Mother Family Medical History: Cancer, Diabetes Mellitus Additional Family Medical History / Comment(s): liver cancer Father Family Medical History: CVA/TIA Additional Family Medical History / Comment(s): was smoker had ctroke in his 30s Medications and Allergies Home Medications Medication Instructions Recorded Confirmed Type Pravastatin Sodium [Pravachol] 20 mg PO MOTUTHSA 11/23/13 10/23/20 History Sodium Bicarbonate Tab 1,300 mg PO BID 11/23/13 10/23/20 History Lansoprazole 30 mg PO DAILY 07/14/18 10/23/20 History Apixaban [Eliquis] 5 mg PO BID 09/18/18 10/23/20 History Tamsulosin [Flomax] 0.4 mg PO BID 09/18/18 10/23/20 History Ferrous Sulfate [Iron (65 MG 325 mg PO BID 12/17/18 10/23/20 History Elemental)] Montelukast [Singulair] 10 mg PO HS 12/17/18 10/23/20 History allopurinoL [Zyloprim] 200 mg PO DAILY 12/17/18 10/23/20 History calcitrioL [Rocaltrol] 0.5 mcg PO MOWEFR 12/17/18 10/23/20 History predniSONE 5 mg PO DAILY 03/09/19 10/23/20 History Labetalol HCl 400 mg PO BID 11/15/19 10/23/20 History amLODIPine [Norvasc] 5 mg PO BID 11/15/19 10/23/20 History hydrALAZINE HCL [Apresoline] 50 mg PO TID #90 tab 11/17/19 10/23/20 Rx Tacrolimus [Prograf] 0.5 mg PO HS 03/03/20 10/23/20 History calcitrioL [Rocaltrol] 0.25 mcg PO SUTUTHSA 03/03/20 10/23/20 History Spironolactone [Aldactone] 25 mg PO DAILY #30 tab 03/04/20 10/23/20 Rx Ergocalciferol [Vitamin D2 50,000 unit PO WE 05/02/20 10/23/20 History (DRISDOL)] Tacrolimus [Prograf] 1 mg PO DAILY 05/02/20 10/23/20 History Niacinamide 500 mg PO BID 10/23/20 10/23/20 History Allergies Allergy/AdvReac Type Severity Reaction Status Date / Time Iodine and Iodide Containing AdvReac HX OF Verified 10/23/20 08:46 Produc KIDNEY DISEASE Physical Exam Vitals: Vital Signs Temp Pulse Pulse Resp BP BP Pulse Ox 10/23/20 11:15 98.0 F 74 20 139/73 90 L 10/23/20 09:33 90 16 10/23/20 09:23 97 16 96 10/23/20 06:28 98.7 F 92 20 144/81 94 L 10/23/20 05:55 84 22 144/77 92 L 10/23/20 04:55 82 10/23/20 04:43 33 H 10/23/20 04:09 98 F 88 34 H 145/72 88 L Intake and Output 10/22/20 10/23/20 10/23/20 22:59 06:59 14:59 Output Total 450 Balance -450 Output: Urine 450 Other: Weight 68.946 kg Results - Lab Results Most recent lab results Calcium 8.9 mg/dL (8.4-10.2) 10/23/20 04:34 Magnesium 1.4 mg/dL (1.6-2.3) L 10/23/20 04:34 10/23/20 04:34 10/23/20 04:34 Assessment and Plan Plan: Assessment: 1. Chronic kidney disease stage III with baseline creatinine 1.2-1.5. GFR at baseline. 2. Status post living related renal transplant in 2000. 3. Status post pancreatic transplant. 4. Acute on chronic diastolic CHF. 5. Mild volume overload. 6. Hypertension with chronic kidney disease. Stable. 7. Chronic kidney disease mineral bone disease maintained on calcitriol. 8. COPD exacerbation. 9. Hypomagnesemia from poor intake and CNI use. Plan: Maintain home dose Prograf. Oral prednisone held as he is on IV steroids at this time. Check and Prograf level. 20 mg IV Lasix once. Replace magnesium. 2 g IV today. Continue to monitor renal function and urine output. Thank you for the consultation. I will continue to follow the patient with you during his hospital stay.
[2020-10-23] MEDS: SODIUM BICARBONATE TAB 650 MG TAB PO SCH ×2 (12:16→20:50)
[2020-10-23] MEDS: amLODIPine 5 MG TAB PO SCH ×2 (12:16→20:50)
[2020-10-23] MEDS: hydrALAZINE HCL 50 MG TAB PO SCH ×2 (12:17→22:04)
[2020-10-23] MEDS: LABETALOL 200 MG TAB PO SCH ×2 (12:18→20:50)
[2020-10-23] MEDS: TACROLIMUS 1 MG CAP PO SCH (12:19)
[2020-10-23] MEDS: APIXABAN 5 MG TAB PO SCH ×2 (12:23→20:50)
[2020-10-23] MEDS: allopurinoL 100 MG TAB PO SCH (12:23)
[2020-10-23] MEDS: TAMSULOSIN 0.4 MG CAP.ER.24H PO SCH ×2 (12:23→20:50)
[2020-10-23] MEDS: SPIRONOLACTONE 25 MG TAB PO SCH (12:24)
[2020-10-23] MEDS: MAGNESIUM SULFATE-D5W PMX 1 GM in DEXTROSE/WATER 1 100ML.BAG IVPB SCH ×2 (12:24→16:01)
[2020-10-23] MEDS ORDERED: FUROSEMIDE 10 MG/ML 4 ML VIAL IV SCH (12:45)
--- NOTE | 2020-10-23 12:50 | P.CNPUL ---
History of Present Illness Consult date: 10/23/20 Reason for consult: dyspnea History of present illness: 55-year-old male patient, known history of chronic stage III kidney disease, known history of a kidney pancreas transplant that was done many years back and the patient has been treated with Prograf and prednisone on outpatient basis. The patient's has completed COVID-19 vaccination. 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 The patient is coming to hospital because of worsening shortness of breath a few days duration. Chest x-ray showing cardiomegaly with pulmonary vascular congestion/edema. Note that the patient had a recent PET scan on 10/21/2020 and based on those images, there was no acute pulmonary abnormalities noted. There was cardiomegaly. His COVID-19 testing is negative. He is afebrile. Nose chest pain. No sputum production. No chest pain. No fever. No chills. No leukocytosis. His creatinine is currently at baseline around 1.5. He was admitted for worsening shortness of breath and currently is on 2 L of oxygen by nasal cannula with a pulse ox of 91%. His proBNP level is elevated at 4570. 2 sets of troponins are negative thus far. No chronic lung disease. No asthma. No emphysema. Review of Systems REVIEW OF SYSTEMS: CONSTITUTIONAL: Denies any recent significant weight loss or weight gain. EYES: Denies change in vision. EARS, NOSE, MOUTH, THROAT: Denies headaches, denies sore throat. CARDIOVASCULAR: Denies chest pain, palpitations or syncopal episodes. RESPIRATORY: Positive for shortness of breath, cough, congestion no hemoptysis. GASTROINTESTINAL: Denies change in appetite, denies abdominal pain GENITOURINARY: Denies hematuria, denies infections. MUSKULOSKELETAL: Denies pain, denies swelling. INTEGUMENTARY: Currently receiving deviation treatment for squamous cell carcinoma of the left neck. NEUROLOGICAL: Denies recent memory loss, no recent seizure activity. PSYCHIATRIC: Denies anxiety, denies depression. HEMATOLOGIC/LYMPHATIC: Denies anemia, denies enlarged lymph nodes. Past Medical History Past Medical History: Cancer, Heart Failure, Hyperlipidemia, Hypertension, Osteoarthritis (OA), Renal Disease, Sleep Apnea/CPAP/BIPAP Additional Past Medical History / Comment(s): ARDS, hx of DM was tx for dm from age 9 to age 35(had pancreas transplant), uses cpap machine, basal and squamous cell skin cancer, hx rt elbow broken-(sx), charcots foot, pancreatitis, History of Any Multi-Drug Resistant Organisms: None Reported Past Surgical History: Hernia Repair, Joint Replacement Additional Past Surgical History / Comment(s): kidney and pancreas transplant , L knee replacment, rt elbow sx has 7 screws,cataracts removed-lens implants, laser eye sx for retinopathy, fernando foot sx(rt foot bone gravt and lt foot bone shaved), skin cancer removed on his head, Past Anesthesia/Blood Transfusion Reactions: No Reported Reaction Past Psychological History: No Psychological Hx Reported Smoking Status: Never smoker Past Alcohol Use History: Occasional Past Drug Use History: None Reported - Past Family History Mother Family Medical History: Cancer, Diabetes Mellitus Additional Family Medical History / Comment(s): liver cancer Father Family Medical History: CVA/TIA Additional Family Medical History / Comment(s): was smoker had ctroke in his 30's Medications and Allergies Home Medications Medication Instructions Recorded Confirmed Type Pravastatin Sodium [Pravachol] 20 mg PO MOTUTHSA 11/23/13 10/23/20 History Sodium Bicarbonate Tab 1,300 mg PO BID 11/23/13 10/23/20 History Lansoprazole 30 mg PO DAILY 07/14/18 10/23/20 History Apixaban [Eliquis] 5 mg PO BID 09/18/18 10/23/20 History Tamsulosin [Flomax] 0.4 mg PO BID 09/18/18 10/23/20 History Ferrous Sulfate [Iron (65 MG 325 mg PO BID 12/17/18 10/23/20 History Elemental)] Montelukast [Singulair] 10 mg PO HS 12/17/18 10/23/20 History allopurinoL [Zyloprim] 200 mg PO DAILY 12/17/18 10/23/20 History calcitrioL [Rocaltrol] 0.5 mcg PO MOWEFR 12/17/18 10/23/20 History predniSONE 5 mg PO DAILY 03/09/19 10/23/20 History Labetalol HCl 400 mg PO BID 11/15/19 10/23/20 History amLODIPine [Norvasc] 5 mg PO BID 11/15/19 10/23/20 History hydrALAZINE HCL [Apresoline] 50 mg PO TID #90 tab 11/17/19 10/23/20 Rx Tacrolimus [Prograf] 0.5 mg PO HS 03/03/20 10/23/20 History calcitrioL [Rocaltrol] 0.25 mcg PO SUTUTHSA 03/03/20 10/23/20 History Spironolactone [Aldactone] 25 mg PO DAILY #30 tab 03/04/20 10/23/20 Rx Ergocalciferol [Vitamin D2 50,000 unit PO WE 05/02/20 10/23/20 History (DRISDOL)] Tacrolimus [Prograf] 1 mg PO DAILY 05/02/20 10/23/20 History Niacinamide 500 mg PO BID 10/23/20 10/23/20 History Allergies Allergy/AdvReac Type Severity Reaction Status Date / Time Iodine and Iodide Containing AdvReac HX OF Verified 10/23/20 08:46 Produc KIDNEY DISEASE Physical Exam Vitals: Vital Signs Temp Pulse Pulse Resp BP BP Pulse Ox 10/23/20 12:24 77 16 10/23/20 12:15 74 16 91 L 10/23/20 11:15 98.0 F 74 20 139/73 90 L 10/23/20 09:33 90 16 10/23/20 09:23 97 16 96 10/23/20 06:28 98.7 F 92 20 144/81 94 L 10/23/20 05:55 84 22 144/77 92 L 10/23/20 04:55 82 10/23/20 04:43 33 H 10/23/20 04:09 98 F 88 34 H 145/72 88 L Intake and Output 10/22/20 10/23/20 10/23/20 22:59 06:59 14:59 Output Total 450 Balance -450 Output: Urine 450 Other: Weight 68.946 kg GENERAL EXAM: Alert, active, pleasant 54-year-old gentleman, on 2 L of oxygen by nasal cannula, comfortable in no apparent distress. HEAD: Normocephalic. EYES: Normal reaction of pupils, equal size. NOSE: Clear with pink turbinates. THROAT: No erythema or exudates. NECK: No masses, no JVD. CHEST: No chest wall deformity. LUNGS: Equal air entry with crackles in the bilateral posterior bases. CVS: S1 and S2 normal with no audible murmur, regular rhythm. ABDOMEN: No hepatosplenomegaly, normal bowel sounds, no guarding or rigidity. SPINE: No scoliosis or deformity SKIN: No rashes, changes from recent skin biopsies and radiation treatments to the head and neck CENTRAL NERVOUS SYSTEM: No focal deficits, tone is normal in all 4 extremities. EXTREMITIES: There is no peripheral edema. No clubbing, no cyanosis. Peripheral pulses are intact. Results - Laboratory Findings CBC and BMP: 10/23/20 04:34 10/23/20 04:34 ABG WBC 9.4 k/uL (3.8-10.6) 10/23/20 04:34 RBC 3.49 m/uL (4.30-5.90) L 10/23/20 04:34 Hgb 11.3 gm/dL (13.0-17.5) L 10/23/20 04:34 Hct 31.3 % (39.0-53.0) L 10/23/20 04:34 MCV 89.7 fL (80.0-100.0) 10/23/20 04:34 MCH 32.3 pg (25.0-35.0) 10/23/20 04:34 MCHC 36.1 g/dL (31.0-37.0) 10/23/20 04:34 RDW 14.3 % (11.5-15.5) 10/23/20 04:34 Plt Count 115 k/uL (150-450) L 10/23/20 04:34 MPV 7.0 10/23/20 04:34 Neutrophils % 85 % 10/23/20 04:34 Lymphocytes % 5 % 10/23/20 04:34 Monocytes % 9 % 10/23/20 04:34 Eosinophils % 1 % 10/23/20 04:34 Basophils % 0 % 10/23/20 04:34 Neutrophils # 8.0 k/uL (1.3-7.7) H 10/23/20 04:34 Lymphocytes # 0.4 k/uL (1.0-4.8) L 10/23/20 04:34 Monocytes # 0.8 k/uL (0-1.0) 10/23/20 04:34 Eosinophils # 0.0 k/uL (0-0.7) 10/23/20 04:34 Basophils # 0.0 k/uL (0-0.2) 10/23/20 04:34 PT 11.2 sec (9.0-12.0) 10/23/20 04:34 INR 1.1 (<1.2) 10/23/20 04:34 APTT 27.8 sec (22.0-30.0) 10/23/20 04:34 Sodium 134 mmol/L (137-145) L 10/23/20 04:34 Potassium 3.9 mmol/L (3.5-5.1) 10/23/20 04:34 Chloride 103 mmol/L (98-107) 10/23/20 04:34 Carbon Dioxide 23 mmol/L (22-30) 10/23/20 04:34 Anion Gap 8 mmol/L 10/23/20 04:34 BUN 28 mg/dL (9-20) H 10/23/20 04:34 Creatinine 1.51 mg/dL (0.66-1.25) H 10/23/20 04:34 Est GFR (CKD-EPI)AfAm 59 (>60 ml/min/1.73 sqM) 10/23/20 04:34 Est GFR (CKD-EPI)NonAf 51 (>60 ml/min/1.73 sqM) 10/23/20 04:34 Glucose 123 mg/dL (74-99) H 10/23/20 04:34 Plasma Lactic Acid Jose 0.7 mmol/L (0.7-2.0) 10/23/20 04:34 Calcium 8.9 mg/dL (8.4-10.2) 10/23/20 04:34 Magnesium 1.4 mg/dL (1.6-2.3) L 10/23/20 04:34 Total Bilirubin 1.6 mg/dL (0.2-1.3) H 10/23/20 04:34 AST 31 U/L (17-59) 10/23/20 04:34 ALT 42 U/L (4-49) 10/23/20 04:34 Alkaline Phosphatase 167 U/L (38-126) H 10/23/20 04:34 Lactate Dehydrogenase 520 U/L (313-618) 10/23/20 04:34 Creatine Kinase 33 U/L (55-170) L 10/23/20 04:34 Troponin I <0.012 ng/mL (0.000-0.034) 10/23/20 11:17 C-Reactive Protein 8.3 mg/dL (<1.0) H 10/23/20 04:34 NT-Pro-B Natriuret Pep 4570 pg/mL 10/23/20 04:34 Total Protein 5.6 g/dL (6.3-8.2) L 10/23/20 04:34 Albumin 3.2 g/dL (3.5-5.0) L 10/23/20 04:34 Coronavirus (PCR) Not Detected (Not Detectd) 10/23/20 05:14 PT/INR, D-dimer PT 11.2 sec (9.0-12.0) 10/23/20 04:34 INR 1.1 (<1.2) 10/23/20 04:34 Abnormal lab findings: Abnormal Labs 10/23/20 10/23/20 04:34 04:34 RBC 3.49 L Hgb 11.3 L Hct 31.3 L Plt Count 115 L Neutrophils # 8.0 H Lymphocytes # 0.4 L Sodium 134 L BUN 28 H Creatinine 1.51 H Glucose 123 H Magnesium 1.4 L Total Bilirubin 1.6 H Alkaline Phosphatase 167 H Creatine Kinase 33 L C-Reactive Protein 8.3 H Total Protein 5.6 L Albumin 3.2 L - Diagnostic Findings Chest x-ray: image reviewed Assessment and Plan Plan: 1 Acute hypoxic respiratory failure secondary to an acute exacerbation of diastolic congestive heart failure fluid overload. Chest x-ray is consistent with interstitial edema and on examination the patient has crackles bilaterally and the patient has a elevated proBNP level. He will benefit from diuretic use. No 70 chronic lung disease at this point in time. No signs or symptoms of infection. The patient has been fully vaccinated for COVID-19 and the patient's COVID-19 screen came back negative. 2 Immunocompromised patient with a history of bilateral kidney transplant in 1988 and 1990. Status post pancreatic transplant in 2000. Previously been on CellCept not on Prograf and prednisone. 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 A PET scan was done as a follow-up on the results are still pending for now. 4 Obstructive sleep apnea utilizing CPAP in the outpatient setting 5 Hypertension 6 Hyperlipidemia 7 chronic kidney disease, stage III Plan Continue her diuretics and give the patient is 40 mg IV every 24 hours monitor renal function check Prograf level Replace electrolytes Discontinue IV Solu Medrol Wean off the FiO2 to maintain a saturation above 90% Echocardiogram last was in 2019. Worthwhile repeating another echocardiogram in a.m.
--- NOTE | 2020-10-23 14:01 | P.CNPUL ---
History of Present Illness Consult date: 10/23/20 Reason for consult: dyspnea, cough, COPD Chief complaint: Shortness of breath cough History of present illness: This is a 55-year-old male with history of sleep disorder breathing and sleep apnea, patient sees Dr. VERONICA waddell for pulmonary related issues, he has chronic kidney disease status post pancreatic and renal transplant, he also has history of congestive heart failure diastolic heart failure and sleep apnea came into the hospital with increasing shortness of breath however denies any chest pain off and on dry nonproductive cough is present, his x-ray was suggestive of CHF- like changes with pulmonary vascular congestion and interstitial edema, covert testing is negative, BNP is high over 4000, patient is currently on 2 L oxygen sats are in low 90s, patient is a nonsmoker lifelong Review of Systems All systems: negative Past Medical History Past Medical History: Cancer, Heart Failure, Hyperlipidemia, Hypertension, Osteoarthritis (OA), Renal Disease, Sleep Apnea/CPAP/BIPAP Additional Past Medical History / Comment(s): ARDS, hx of DM was tx for dm from age 9 to age 35(had pancreas transplant), uses cpap machine, basal and squamous cell skin cancer, hx rt elbow broken-(sx), charcots foot, pancreatitis, History of Any Multi-Drug Resistant Organisms: None Reported Past Surgical History: Hernia Repair, Joint Replacement Additional Past Surgical History / Comment(s): kidney and pancreas transplant , L knee replacment, rt elbow sx has 7 screws,cataracts removed-lens implants, laser eye sx for retinopathy, fernando foot sx(rt foot bone gravt and lt foot bone shaved), skin cancer removed on his head, Past Anesthesia/Blood Transfusion Reactions: No Reported Reaction Past Psychological History: No Psychological Hx Reported Smoking Status: Never smoker Past Alcohol Use History: Occasional Past Drug Use History: None Reported - Past Family History Mother Family Medical History: Cancer, Diabetes Mellitus Additional Family Medical History / Comment(s): liver cancer Father Family Medical History: CVA/TIA Additional Family Medical History / Comment(s): was smoker had ctroke in his 30's Medications and Allergies Home Medications Medication Instructions Recorded Confirmed Type Pravastatin Sodium [Pravachol] 20 mg PO MOTUTHSA 11/23/13 10/23/20 History Sodium Bicarbonate Tab 1,300 mg PO BID 11/23/13 10/23/20 History Lansoprazole 30 mg PO DAILY 07/14/18 10/23/20 History Apixaban [Eliquis] 5 mg PO BID 09/18/18 10/23/20 History Tamsulosin [Flomax] 0.4 mg PO BID 09/18/18 10/23/20 History Ferrous Sulfate [Iron (65 MG 325 mg PO BID 12/17/18 10/23/20 History Elemental)] Montelukast [Singulair] 10 mg PO HS 12/17/18 10/23/20 History allopurinoL [Zyloprim] 200 mg PO DAILY 12/17/18 10/23/20 History calcitrioL [Rocaltrol] 0.5 mcg PO MOWEFR 12/17/18 10/23/20 History predniSONE 5 mg PO DAILY 03/09/19 10/23/20 History Labetalol HCl 400 mg PO BID 11/15/19 10/23/20 History amLODIPine [Norvasc] 5 mg PO BID 11/15/19 10/23/20 History hydrALAZINE HCL [Apresoline] 50 mg PO TID #90 tab 11/17/19 10/23/20 Rx Tacrolimus [Prograf] 0.5 mg PO HS 03/03/20 10/23/20 History calcitrioL [Rocaltrol] 0.25 mcg PO SUTUTHSA 03/03/20 10/23/20 History Spironolactone [Aldactone] 25 mg PO DAILY #30 tab 03/04/20 10/23/20 Rx Ergocalciferol [Vitamin D2 50,000 unit PO WE 05/02/20 10/23/20 History (DRISDOL)] Tacrolimus [Prograf] 1 mg PO DAILY 05/02/20 10/23/20 History Niacinamide 500 mg PO BID 10/23/20 10/23/20 History Allergies Allergy/AdvReac Type Severity Reaction Status Date / Time Iodine and Iodide Containing AdvReac HX OF Verified 10/23/20 08:46 Produc KIDNEY DISEASE Physical Exam Vitals: Vital Signs Temp Pulse Pulse Resp BP BP Pulse Ox 10/23/20 12:24 77 16 10/23/20 12:15 74 16 91 L 10/23/20 11:15 98.0 F 74 20 139/73 90 L 10/23/20 09:33 90 16 10/23/20 09:23 97 16 96 10/23/20 06:28 98.7 F 92 20 144/81 94 L 10/23/20 05:55 84 22 144/77 92 L 10/23/20 04:55 82 10/23/20 04:43 33 H 10/23/20 04:09 98 F 88 34 H 145/72 88 L Intake and Output 10/22/20 10/23/20 10/23/20 22:59 06:59 14:59 Output Total 450 Balance -450 Output: Urine 450 Other: Weight 68.946 kg - Constitutional General appearance: average body habitus, mild distress - EENT Eyes: PERRLA Ears: bilateral: normal - Neck Neck: normal ROM Carotids: bilateral: upstroke normal - Respiratory Respiratory: bilateral: rales - Cardiovascular Rhythm: regular Heart sounds: normal: S1, S2 - Gastrointestinal General gastrointestinal: normal bowel sounds, soft - Neurologic Neurologic: CNII-XII intact - Musculoskeletal Musculoskeletal: gait normal, generalized weakness, strength equal bilaterally - Psychiatric Psychiatric: A&O x's 3, appropriate affect, intact judgment & insight Results - Laboratory Findings CBC and BMP: 10/23/20 04:34 10/23/20 04:34 PT/INR, D-dimer PT 11.2 sec (9.0-12.0) 10/23/20 04:34 INR 1.1 (<1.2) 10/23/20 04:34 Abnormal lab findings: Abnormal Labs 10/23/20 10/23/20 04:34 04:34 RBC 3.49 L Hgb 11.3 L Hct 31.3 L Plt Count 115 L Neutrophils # 8.0 H Lymphocytes # 0.4 L Sodium 134 L BUN 28 H Creatinine 1.51 H Glucose 123 H Magnesium 1.4 L Total Bilirubin 1.6 H Alkaline Phosphatase 167 H Creatine Kinase 33 L C-Reactive Protein 8.3 H Total Protein 5.6 L Albumin 3.2 L - Diagnostic Findings Chest x-ray: report reviewed, image reviewed Assessment and Plan Assessment: Acute hypoxic respiratory failure due to exacerbation of CHF and fluid overload with acute on chronic diastolic heart failure Sleep disorder breathing and sleep apnea Chronic kidney disease stage III Status post pancreatic door renal transplant Acute on chronic diastolic heart failure Hypertension hypertensive cardiovascular disease Hypomagnesemia Immunosuppressed status due to immunosuppressive agent for pancreatic or adrenal transplant COVID-19 negative status Plan: Agree with gentle diuresis Continue supplemental oxygen titrated oxygen down to room air keeping saturation 90-92% or above Continue home medications including direct oral anticoagulants Continue Prograf, low-dose maintenance suppressive prednisone Further plan of care as per clinical response of the patient Time with Patient: Greater than 30
[2020-10-23] MEDS ORDERED: MAGNESIUM SULFATE-D5W PMX 1 GM in DEXTROSE/WATER 1 100ML.BAG IVPB ONE (14:44)
--- NOTE | 2020-10-23 14:50 | P.HPIM ---
History of Present Illness H&P Date: 10/23/20 This is a 54-year-old male patient of , Dr. Adhikari, Dr. 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 Serrano radiation oncologist at [facility], obstructive sleep apnea on BiPAP, hypertension, hyperlipidemia, benign prostatic hypertrophy who was admitted for small bowel obstruction in June 2020 followed by admission for CHF and multifocal pneumonia at [facility] 3 weeks ago. Patient comes in this time with shortness of breath that started few days ago. Patient monitor his oxygen at home and noted it going down to 70% on room air. He does not wear oxygen at home but does wear CPAP at night. Patient does endorse shortness of breath associated with lying down and nocturnal orthopnea. Patient denies any chest pain, palpitation, cough with phlegm production. In the ER patient had a chest x-ray which suggested pulmonary vascular congestion, COVID-19 testing was negative. ProBNP level was 4570, troponin 2 were negative. Hemoglobin 11.3, INR 1.1, sodium 134, potassium 3.9, BUN 28, creatinine 1.5, glucose 123, magnesium 1.4, total bilirubin 1.6, alk phos 167 CK 33 CRP 8.3, lipase 51 EKGs show sinus rhythm with premature atrial complexes. Vital suggest temp of 98 pulse 74 respiratory rate 20 blood pressure 139/73 patient received 20 mg of IV Lasix once. Patient was evaluated by cardiology who would continue Aldactone and hold further IV Lasix was this point. Prograf levels ordered. Review of Systems Constitutional: Denies chills, Denies fever, Denies lethargy, Denies malaise, Denies poor appetite, Denies weakness, Denies weight loss Eyes: denies decreased vision, denies diplopia, denies discharge, denies pain Ears: deny: decreased hearing Ears, nose, mouth and throat: Denies dental pain, Denies headache, Denies nasal discharge, Denies nose pain Cardiovascular: Denies chest pain, Denies decreased exercise tolerance, Denies edema, Denies high blood pressure, Denies irregular heart beat, Denies palpitations, Denies paroxysmal nocturnal dyspnea, Denies rapid heart beat, Denies shortness of breath Respiratory: Endorses congestion, Denies cough, Denies cough with sputum, endorses dyspnea, Denies home oxygen, Denies wheezing Gastrointestinal: Denies abdominal pain, Denies change in bowel habits, Denies coffee ground emesis, Denies early satiety, Denies excessive gas, Denies heartburn, Denies hematemesis, Denies hematochezia, Denies loss of appetite, Denies nausea, Denies vomiting Genitourinary: Denies dysuria, Denies flank pain, Denies kidney stones, Denies menorrhagia, Denies urgency, Denies urinary frequency Musculoskeletal: Denies gait dysfunction, Denies limitation of motion, Denies morning stiffness, Denies muscle cramps Integumentary: Denies rash, Denies wounds, Denies brittle nails, Denies change in hair/nails, Denies darkening of skin Neurological: Denies balance difficulties, Denies change in speech, Denies double vision, Denies gait dysfunction, Denies loss of vision, Denies motor disturbance, Denies numbness, Denies paralysis, Denies paresthesias, Denies seizures Psychiatric: Denies anxiety, Denies depression Endocrine: Denies excessive sweating, Denies excessive thirst, Denies high blood sugars, Denies palpitations Hematologic/Lymphatic: Denies easy bruising, Denies lymphadenopathy Past Medical History Past Medical History: Cancer, Heart Failure, Hyperlipidemia, Hypertension, Osteoarthritis (OA), Renal Disease, Sleep Apnea/CPAP/BIPAP Additional Past Medical History / Comment(s): ARDS, hx of DM was tx for dm from age 9 to age 35(had pancreas transplant), uses cpap machine, basal and squamous cell skin cancer, hx rt elbow broken-(sx), charcots foot, pancreatitis, History of Any Multi-Drug Resistant Organisms: None Reported Past Surgical History: Hernia Repair, Joint Replacement Additional Past Surgical History / Comment(s): kidney and pancreas transplant , L knee replacment, rt elbow sx has 7 screws,cataracts removed-lens implants, laser eye sx for retinopathy, fernando foot sx(rt foot bone gravt and lt foot bone shaved), skin cancer removed on his head, Past Anesthesia/Blood Transfusion Reactions: No Reported Reaction Past Psychological History: No Psychological Hx Reported Smoking Status: Never smoker Past Alcohol Use History: Occasional Past Drug Use History: None Reported - Past Family History Mother Family Medical History: Cancer, Diabetes Mellitus Additional Family Medical History / Comment(s): liver cancer Father Family Medical History: CVA/TIA Additional Family Medical History / Comment(s): was smoker had ctroke in his 30's Medications and Allergies Home Medications Medication Instructions Recorded Confirmed Type Pravastatin Sodium [Pravachol] 20 mg PO MOTUTHSA 11/23/13 10/23/20 History Sodium Bicarbonate Tab 1,300 mg PO BID 11/23/13 10/23/20 History Lansoprazole 30 mg PO DAILY 07/14/18 10/23/20 History Apixaban [Eliquis] 5 mg PO BID 09/18/18 10/23/20 History Tamsulosin [Flomax] 0.4 mg PO BID 09/18/18 10/23/20 History Ferrous Sulfate [Iron (65 MG 325 mg PO BID 12/17/18 10/23/20 History Elemental)] Montelukast [Singulair] 10 mg PO HS 12/17/18 10/23/20 History allopurinoL [Zyloprim] 200 mg PO DAILY 12/17/18 10/23/20 History calcitrioL [Rocaltrol] 0.5 mcg PO MOWEFR 12/17/18 10/23/20 History predniSONE 5 mg PO DAILY 03/09/19 10/23/20 History Labetalol HCl 400 mg PO BID 11/15/19 10/23/20 History amLODIPine [Norvasc] 5 mg PO BID 11/15/19 10/23/20 History hydrALAZINE HCL [Apresoline] 50 mg PO TID #90 tab 11/17/19 10/23/20 Rx Tacrolimus [Prograf] 0.5 mg PO HS 03/03/20 10/23/20 History calcitrioL [Rocaltrol] 0.25 mcg PO SUTUTHSA 03/03/20 10/23/20 History Spironolactone [Aldactone] 25 mg PO DAILY #30 tab 03/04/20 10/23/20 Rx Ergocalciferol [Vitamin D2 50,000 unit PO WE 05/02/20 10/23/20 History (DRISDOL)] Tacrolimus [Prograf] 1 mg PO DAILY 05/02/20 10/23/20 History Niacinamide 500 mg PO BID 10/23/20 10/23/20 History Allergies Allergy/AdvReac Type Severity Reaction Status Date / Time Iodine and Iodide Containing AdvReac HX OF Verified 10/23/20 08:46 Produc KIDNEY DISEASE Physical Exam Vitals: Vital Signs Temp Pulse Pulse Resp BP BP Pulse Ox 10/23/20 12:24 77 16 10/23/20 12:15 74 16 91 L 10/23/20 11:15 98.0 F 74 20 139/73 90 L 10/23/20 09:33 90 16 10/23/20 09:23 97 16 96 10/23/20 06:28 98.7 F 92 20 144/81 94 L 10/23/20 05:55 84 22 144/77 92 L 10/23/20 04:55 82 10/23/20 04:43 33 H 10/23/20 04:09 98 F 88 34 H 145/72 88 L Intake and Output 10/22/20 10/23/20 10/23/20 22:59 06:59 14:59 Output Total 450 Balance -450 Output: Urine 450 Other: Weight 68.946 kg - Constitutional General appearance: cooperative, no acute distress - EENT Eyes: anicteric sclerae, PERRLA, normal appearance ENT: hearing grossly normal - Neck Neck: no lymphadenopathy, normal ROM, no other, no rigidity, no stridor, no thyromegaly - Respiratory Respiratory: bilateral: CTA, negative: diminished, dullness, rales, rhonchi - Cardiovascular Rhythm: regular Heart sounds: normal: S1, S2 Abnormal Heart Sounds: 3/6 systolic murmur, no diastolic murmur, no rub, no S3 Gallop, no S4 Gallop, no click, no other - Gastrointestinal General gastrointestinal: normal bowel sounds, soft - Integumentary Integumentary: no rash - Neurologic Neurologic: CNII-XII intact - Musculoskeletal Musculoskeletal: gait normal charcoit joints noted, strength equal bilaterally - Psychiatric Psychiatric: A&O x's 3, appropriate affect Results CBC & Chem 7: 10/23/20 04:34 10/23/20 04:34 Labs: Abnormal Lab Results - Last 24 Hours (Table) 10/23/20 10/23/20 Range/Units 04:34 04:34 RBC 3.49 L (4.30-5.90) m/uL Hgb 11.3 L (13.0-17.5) gm/dL Hct 31.3 L (39.0-53.0) % Plt Count 115 L (150-450) k/uL Neutrophils # 8.0 H (1.3-7.7) k/uL Lymphocytes # 0.4 L (1.0-4.8) k/uL Sodium 134 L (137-145) mmol/L BUN 28 H (9-20) mg/dL Creatinine 1.51 H (0.66-1.25) mg/dL Glucose 123 H (74-99) mg/dL Magnesium 1.4 L (1.6-2.3) mg/dL Total Bilirubin 1.6 H (0.2-1.3) mg/dL Alkaline Phosphatase 167 H (38-126) U/L Creatine Kinase 33 L (55-170) U/L C-Reactive Protein 8.3 H (<1.0) mg/dL Total Protein 5.6 L (6.3-8.2) g/dL Albumin 3.2 L (3.5-5.0) g/dL Thrombosis Risk Factor Assmnt - DVT/VTE Prophylaxis DVT/VTE Prophylaxis: Pharmacologic Prophylaxis ordered - Choose All That Apply Each Factor Represents 1 point: Abnormal pulmonary function (COPD), Age 41-60 years, Serious lung disease incl. pneumonia (< 1month) Thrombosis Risk Factor Assessment Total Risk Factor Score: 3 Thrombosis Risk Factor Assessment Level: Moderate Risk Assessment and Plan Plan: 1 acute hypoxic respiratory failure secondary to acute CHF exacerbation. Status post Lasix 20 mg IV 1 time dose currently on Aldactone. Cardiology consult placed. I and O monitoring. Low-salt diet. 2 L fluid restriction 2 history of proximal atrial fibrillation continue Eliquis 5 mg twice daily. Continue labetalol 400 twice a day 3. CK D3 creatinine baseline 1.3 - 1.5 nephrology consulted 4. Squamous cell skin cancer under the care of radiation oncology at [facility]. 5. Hypertension. Continue Norvasc 5 mg twice daily, hydralazine 50 mg 3 times daily, labetalol. 6. Hyperlipidemia. Continue pravastatin 20 mg by mouth daily 7. Obstructive sleep apnea. Continue BiPAP. 8. Diabetes mellitus type 1 status post pancreas. Stable. 9. Pancreas and kidney transplant. Consult with nephrology. Prednisone 5 mg po daily and Prograf 0.5 mg twice daily to be continued crushed sublingual. 10. Benign prostatic hypertrophy. Continue Flomax 0.4 mg daily. 11. DVT prophylaxis. Eliquis. SCDs and LAZARO hose. 12. GI prophylaxis. Protonix. Disposition patient 1-2 inpatient nights stable as
--- NOTE | 2020-10-23 15:09 | CONS ---
CONSULTATION This is a 55-year-old gentleman with a history of kidney and pancreatic transplant. He also has paroxysmal atrial fibrillation and mild elevation of creatinine in the range of 1.3-1.5. He came into the hospital with increasing shortness of breath. He seems to be comfortable at the time of my evaluation. EKG revealed a sinus rhythm with some PACs. No acute changes were noted. On reviewing the ER note it appears that he arrived with increasing shortness of breath and also indicated that he had COPD. He also felt weak and lightheaded but seems to be comfortable and resting. He has checked oxygen saturation, it was low. He felt concerned and came in. However, he is asymptomatic, feels well. There is modest elevation of BNP which I believe may be chronic. He has no chest pain or shortness of breath or palpitations. PAST MEDICAL HISTORY: He has history of hypertension, hyperlipidemia, paroxysmal atrial fibrillation, osteoarthritis, and also status post kidney and pancreatic transplant. MEDICATIONS: Medications at home include Pravachol 20 mg daily, apixaban 5 mg b.i.d., Flomax, Singulair, prednisone, Prograf, calcitriol, and labetalol 4 mg b.i.d. and prednisone 5 mg daily. ALLERGIES: Allergic to IODINE CONTAINING PRODUCTS. PHYSICAL EXAMINATION: On examination, blood pressure is 140/70, pulse rate is about 84 per minute and regular. HEENT unremarkable. Fundus was not examined by me. NECK: Supple. There is JVD of 1 cm. No carotid bruit. Heart exam reveals S1, S2 heard normally with a short systolic murmur at the base. Second heart sound is preserved. Lungs revealed bilateral diminished air entry. Abdomen is soft, nontender. Lower extremities reveal mild edema. CENTRAL NERVOUS SYSTEM: Grossly within normal limits. IMPRESSION: 1. Probably mild diastolic heart failure. 2. Status post kidney and pancreatic transplant. 3. Hypertension. 4. Hyperlipidemia. 5. Paroxysmal atrial fibrillation, on Eliquis, maintaining sinus rhythm. RECOMMENDATIONS: I would recommend no aggressive diuresis in this patient mainly because of risk of worsening creatinine in a patient with a kidney and pancreatic transplant. The patient is comfortable, resting. If he is doing well, we can increase activity and if he has no further symptoms, consider discharge in 24 hours. He is maintaining sinus rhythm. There is no overt clinical heart failure. BNP is modestly elevated about 4000 or so and his chest x-ray which was reviewed by me reveals mild prominent hilar markings, but no clear-cut evidence of CHF. Thank you very much for the consult. MMTANK / AHMETN: [id number] /
[2020-10-23] MEDS: MONTELUKAST 10 MG TAB PO SCH (20:50)
[2020-10-23] MEDS: TACROLIMUS 0.5 MG CAP PO SCH (20:50)
[2020-10-23] MEDS: NON FORMULARY DRUG (Niacinamide [Niacinamide] 500 MG Tablet) PO SCH (20:51)
[2020-10-23] MEDS: FERROUS SULFATE 325 MG TAB PO SCH (20:51)
[2020-10-24] MEDS: FERROUS SULFATE 325 MG TAB PO SCH ×2 (07:58→21:15)
[2020-10-24] MEDS: PANTOPRAZOLE 40 MG TABLET PO SCH (07:58)
[2020-10-24] MEDS: hydrALAZINE HCL 50 MG TAB PO SCH ×3 (07:58→21:14)
[2020-10-24] MEDS: predniSONE 5 MG TAB PO SCH (07:58)
[2020-10-24] MEDS: allopurinoL 100 MG TAB PO SCH (07:58)
[2020-10-24] MEDS: APIXABAN 5 MG TAB PO SCH ×2 (07:58→21:16)
[2020-10-24] MEDS: TAMSULOSIN 0.4 MG CAP.ER.24H PO SCH ×2 (07:58→21:15)
[2020-10-24] MEDS: SPIRONOLACTONE 25 MG TAB PO SCH (07:58)
[2020-10-24] MEDS: amLODIPine 5 MG TAB PO SCH ×2 (07:59→21:16)
[2020-10-24] MEDS: SODIUM BICARBONATE TAB 650 MG TAB PO SCH ×2 (07:59→21:17)
[2020-10-24] MEDS: TACROLIMUS 1 MG CAP PO SCH (07:59)
[2020-10-24] MEDS: LABETALOL 200 MG TAB PO SCH ×2 (07:59→21:15)
[2020-10-24] MEDS: NON FORMULARY DRUG (Niacinamide [Niacinamide] 500 MG Tablet) PO SCH ×2 (08:00→21:17)
[2020-10-24] MEDS: PRAVASTATIN SODIUM 20 MG TAB PO SCH (08:00)
[2020-10-24] MEDS: ALBUTEROL NEBULIZED 2.5 MG/3 ML INHALATION SCH ×4 (08:13→21:01)
[2020-10-24] MEDS ORDERED: FUROSEMIDE 10 MG/ML 4 ML VIAL IV SCH (09:00)
[2020-10-24 09:21] LABS: African American GFR (CKD) 64.2 (60.0-200.0); Anion Gap 7.9 mmol/L (4.00-12.00); BUN/Creat Ratio 25.71 Ratio (12.00-20.00); Calcium 8.2 mg/dL (8.7-10.3); Carbon Dioxide 23.1 mmol/L (21.6-31.8); Magnesium 2.1 mg/dL (1.5-2.4); Non-African American GFR(CKD) 55.4 (60.0-200.0); Potassium 4.1 mmol/L (3.5-5.5)
--- NOTE | 2020-10-24 09:37 | P.PN ---
Subjective Progress Note Date: 10/24/20 HISTORY OF PRESENT ILLNESS: Patient examined this morning at the bedside. Patient is walking around independently in his room. He states his shortness of breath has resolved. He denies chest pain or pressure. He remains on IV Lasix every 24 hours per pulmonary. BUN 36. Creatinine 1.40. Blood pressure 133/73. Heart rate in the 70s to 80s. He is afebrile. Oxygen saturations greater than 92%. PHYSICAL EXAM: VITAL SIGNS: Reviewed. GENERAL: Well-developed in no acute distress. NECK: Supple. No JVD or thyromegaly LUNGS: Respirations even and unlabored. Lungs diminished bilaterally. HEART: Regular rate and rhythm. S1 and S2 heard. EXTREMITIES: Normal range of motion. No clubbing or cyanosis. Peripheral pulses intact. No lower extremity edema ASSESSMENT: Possible acute mild diastolic heart failure Hypertension Hyperlipidemia Paroxysmal atrial fibrillation, on anticoagulation with Eliquis History of kidney and peg reticulocyte transplant PLAN: Continue current cardiac medications May transition to oral Lasix. Will defer to pulmonary medicine as they ordered IV Lasix Patient is currently stable from a cardiac standpoint We will sign off. Please reconsult if needed. Nurse practitioner note has been reviewed by physician. Signing provider agrees with the documented findings, assessment, and plan of care. Objective - Vital Signs Vital signs: Vital Signs Temp 97.5 F L 10/24/20 05:00 Pulse 80 10/24/20 08:22 Resp 16 10/23/20 19:22 BP 133/73 10/24/20 05:00 Pulse Ox 96 10/24/20 05:00 Intake & Output 10/23/20 10/24/20 10/24/20 18:59 06:59 18:59 Output Total 450 Balance -450 Weight 72 kg Output: Urine 450 Other: # Voids 1 - Labs CBC & Chem 7: 10/23/20 04:34 10/24/20 05:49 Labs: Abnormal Lab Results - Last 24 Hours (Table) 10/24/20 Range/Units 05:49 BUN 36.0 H (9.0-27.0) mg/dL Est GFR (CKD-EPI)NonAf 55.4 L (60.0-200.0) BUN/Creatinine Ratio 25.71 H (12.00-20.00) Ratio Glucose 214 H (70-110) mg/dL Calcium 8.2 L (8.7-10.3) mg/dL
--- NOTE | 2020-10-24 10:33 | P.PN ---
Subjective Patient is seen in follow-up for chronic kidney disease and renal transplant management. Renal function is stable. Currently on 2 L nasal cannula. Blood pressure controlled. No chest pain or shortness of breath. Vital signs are stable. General: The patient appeared well nourished and normally developed. HEENT: Head exam is unremarkable. Neck is without jugular venous distension. LUNGS: Breath sounds decreased. HEART: Rate and Rhythm are regular. ABDOMEN: Soft, nontender. EXTREMITITES: No edema. Objective - Vital Signs Vital signs: Vital Signs Temp 97.5 F L 10/24/20 05:00 Pulse 80 10/24/20 08:22 Resp 16 10/23/20 19:22 BP 133/73 10/24/20 05:00 Pulse Ox 96 10/24/20 05:00 Intake & Output 10/23/20 10/24/20 10/24/20 18:59 06:59 18:59 Output Total 450 Balance -450 Weight 72 kg Output: Urine 450 Other: Voiding Method Urinal # Voids 1 - Labs CBC & Chem 7: 10/23/20 04:34 10/24/20 05:49 Labs: Abnormal Lab Results - Last 24 Hours (Table) 10/24/20 Range/Units 05:49 BUN 36.0 H (9.0-27.0) mg/dL Est GFR (CKD-EPI)NonAf 55.4 L (60.0-200.0) BUN/Creatinine Ratio 25.71 H (12.00-20.00) Ratio Glucose 214 H (70-110) mg/dL Calcium 8.2 L (8.7-10.3) mg/dL Assessment and Plan Plan: Assessment: 1. Chronic kidney disease stage III with baseline creatinine 1.2-1.5. GFR at baseline. 2. Status post living related renal transplant in 2000. 3. Status post pancreatic transplant. 4. Acute on chronic diastolic CHF. 5. Mild volume overload. 6. Hypertension with chronic kidney disease. Stable. 7. Chronic kidney disease mineral bone disease maintained on calcitriol. 8. COPD exacerbation. 9. Hypomagnesemia from poor intake and CNI use. Replaced. Better. 10. Metabolic acidosis secondary to chronic kidney disease maintained on oral bicarbonate. Plan: Maintain home dose Prograf and prednisone. Follow-up Prograf level. Maintain IV Lasix 40 mg once daily. Repeat chest x-ray tomorrow morning. Continue to monitor renal function and urine output.
--- NOTE | 2020-10-24 11:55 | P.PN ---
Subjective Progress Note Date: 10/24/20 Principal diagnosis: Acute hypoxic respiratory failure due to exacerbation of CHF and fluid overload with acute on chronic diastolic heart failure Sleep disorder breathing and sleep apnea Chronic kidney disease stage III Status post pancreatic door renal transplant Acute on chronic diastolic heart failure Hypertension hypertensive cardiovascular disease Hypomagnesemia Immunosuppressed status due to immunosuppressive agent for pancreatic or adrenal transplant COVID-19 negative status Oct 24 2018, patient seen eval examined in respiratory status slightly improved denies any chest pain remains on 2 L oxygen, breathing slightly better has been diuresed, This is a 55-year-old male with history of sleep disorder breathing and sleep apnea, patient sees Dr. VERONICA waddell for pulmonary related issues, he has chronic kidney disease status post pancreatic and renal transplant, he also has history of congestive heart failure diastolic heart failure and sleep apnea came into the hospital with increasing shortness of breath however denies any chest pain off and on dry nonproductive cough is present, his x-ray was suggestive of CHF- like changes with pulmonary vascular congestion and interstitial edema, covert testing is negative, BNP is high over 4000, patient is currently on 2 L oxygen sats are in low 90s, patient is a nonsmoker lifelong Objective - Vital Signs Vital signs: Vital Signs Temp 97.5 F L 10/24/20 05:00 Pulse 80 10/24/20 11:46 Resp 16 10/23/20 19:22 BP 133/73 10/24/20 05:00 Pulse Ox 96 10/24/20 05:00 Intake & Output 10/23/20 10/24/20 10/24/20 18:59 06:59 18:59 Output Total 450 Balance -450 Weight 72 kg Output: Urine 450 Other: Voiding Method Urinal # Voids 1 - Exam - Constitutional General appearance: average body habitus, mild distress - EENT Eyes: PERRLA Ears: bilateral: normal - Neck Neck: normal ROM Carotids: bilateral: upstroke normal - Respiratory Respiratory: bilateral: rales - Cardiovascular Rhythm: regular Heart sounds: normal: S1, S2 - Gastrointestinal General gastrointestinal: normal bowel sounds, soft - Neurologic Neurologic: CNII-XII intact - Musculoskeletal Musculoskeletal: gait normal, generalized weakness, strength equal bilaterally - Psychiatric Psychiatric: A&O x's 3, appropriate affect, intact judgment & insight - Labs CBC & Chem 7: 10/23/20 04:34 10/24/20 05:49 Labs: Abnormal Lab Results - Last 24 Hours (Table) 10/24/20 Range/Units 05:49 BUN 36.0 H (9.0-27.0) mg/dL Est GFR (CKD-EPI)NonAf 55.4 L (60.0-200.0) BUN/Creatinine Ratio 25.71 H (12.00-20.00) Ratio Glucose 214 H (70-110) mg/dL Calcium 8.2 L (8.7-10.3) mg/dL Assessment and Plan Assessment: Acute hypoxic respiratory failure due to exacerbation of CHF and fluid overload with acute on chronic diastolic heart failure Sleep disorder breathing and sleep apnea Chronic kidney disease stage III Status post pancreatic door renal transplant Acute on chronic diastolic heart failure Hypertension hypertensive cardiovascular disease Hypomagnesemia Immunosuppressed status due to immunosuppressive agent for pancreatic or adrenal transplant COVID-19 negative status Plan: Agree with gentle diuresis Continue supplemental oxygen titrated oxygen down to room air keeping saturation 90-92% or above Continue home medications including direct oral anticoagulants Continue Prograf, low-dose maintenance suppressive prednisone Further plan of care as per clinical response of the patient Time with Patient: Greater than 30
--- NOTE | 2020-10-24 17:22 | P.PN ---
Subjective Progress Note Date: 10/24/20 his is a 54-year-old male patient of , Dr. Adhikari, Dr. 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 Serrano radiation oncologist at [facility], obstructive sleep apnea on BiPAP, hypertension, hyperlipidemia, benign prostatic hypertrophy who was admitted for small bowel obstruction in June 2020 followed by admission for CHF and multifocal pneumonia at [facility] 3 weeks ago. Patient comes in this time with shortness of breath that started few days ago. Patient monitor his oxygen at home and noted it going down to 70% on room air. He does not wear oxygen at home but does wear CPAP at night. Patient does endorse shortness of breath associated with lying down and nocturnal orthopnea. Patient denies any chest pain, palpitation, cough with phlegm pr oduction. In the ER patient had a chest x-ray which suggested pulmonary vascular congestion, COVID-19 testing was negative. ProBNP level was 4570, troponin 2 were negative. Hemoglobin 11.3, INR 1.1, sodium 134, potassium 3.9, BUN 28, creatinine 1.5, glucose 123, magnesium 1.4, total bilirubin 1.6, alk phos 167 CK 33 CRP 8.3, lipase 51 EKGs show sinus rhythm with premature atrial complexes. Vital suggest temp of 98 pulse 74 respiratory rate 20 blood pressure 139/73 patient received 20 mg of IV Lasix once. Patient was evaluated by cardiology who would continue Aldactone and hold further IV Lasix was this point. Prograf levels ordered. 10/24 and patient examined bedside. Feeling better on current oxygen setting. Patient does not wear oxygen at home on assessment patient is white as patient had temp of 97 pulse 72 respiratory rate 18 blood pressure 123/67 patient had walking pulse ox today. He will was 90% on room air dropped to 84% on exertion which improved to 95% on 2 L of oxygen. Patient would need oxygen to be discharged home. Labs reviewed patient a BUN of 36 creatinine 1.4 glucose to 140 2.1 troponin is 2 is negative. Prograf levels are pending at this moment. Continue Lasix at 40 mg by mouth daily. I repeated his chest x-ray has been ordered for tomorrow. Pulmonary and nephrology recommendation appreciated ROS Constitutional: Denies chills, Denies fever, Denies lethargy, Denies malaise, Denies poor appetite, Denies weakness, Denies weight loss Eyes: denies decreased vision, denies diplopia, denies discharge, denies pain Ears: deny: decreased hearing Ears, nose, mouth and throat: Denies dental pain, Denies headache, Denies nasal discharge, Denies nose pain Cardiovascular: Denies chest pain, Denies decreased exercise tolerance, Denies edema, Denies high blood pressure, Denies irregular heart beat, Denies palpitations, Denies paroxysmal nocturnal dyspnea, Denies rapid heart beat, Denies shortness of breath Respiratory: Denies congestion, Denies cough, Denies cough with sputum, endorses improved dyspnea, Denies home oxygen, Denies wheezing Gastrointestinal: Denies abdominal pain, Denies change in bowel habits, Denies coffee ground emesis, Denies early satiety, Denies excessive gas, Denies heartburn, Denies hematemesis, Denies hematochezia, Denies loss of appetite, Denies nausea, Denies vomiting Genitourinary: Denies dysuria, Denies flank pain, Denies kidney stones, Denies menorrhagia, Denies urgency, Denies urinary frequency Musculoskeletal: Denies gait dysfunction, Denies limitation of motion, Denies morning stiffness, Denies muscle cramps Integumentary: Denies rash, Denies wounds, Denies brittle nails, Denies change in hair/nails, Denies darkening of skin Objective - Vital Signs Vital signs: Vital Signs Temp 97.5 F L 10/24/20 12:26 Pulse 76 10/24/20 16:40 Resp 18 10/24/20 12:26 BP 123/67 10/24/20 12:26 Pulse Ox 95 10/24/20 16:17 Intake & Output 10/23/20 10/24/20 10/24/20 18:59 06:59 18:59 Output Total 450 Balance -450 Weight 72 kg Output: Urine 450 Other: Voiding Method Urinal # Voids 1 - Exam - Constitutional General appearance: cooperative, no acute distress - EENT Eyes: anicteric sclerae, PERRLA, normal appearance ENT: hearing grossly normal - Neck Neck: no lymphadenopathy, normal ROM, no other, no rigidity, no stridor, no thyromegaly - Respiratory Respiratory: bilateral: CTA, negative: diminished, dullness, rales, rhonchi - Cardiovascular Rhythm: regular Heart sounds: normal: S1, S2 Abnormal Heart Sounds: 3/6 systolic murmur, no diastolic murmur, no rub, no S3 Gallop, no S4 Gallop - Gastrointestinal General gastrointestinal: normal bowel sounds, soft - Integumentary Integumentary: Multiple skin graft over the head and the chest - Neurologic Neurologic: CNII-XII intact - Musculoskeletal Musculoskeletal: gait normal charcoit joints noted, strength equal bilaterally - Psychiatric Psychiatric: A&O x's 3, appropriate affect - Labs CBC & Chem 7: 10/23/20 04:34 10/24/20 05:49 Labs: Abnormal Lab Results - Last 24 Hours (Table) 10/24/20 Range/Units 05:49 BUN 36.0 H (9.0-27.0) mg/dL Est GFR (CKD-EPI)NonAf 55.4 L (60.0-200.0) BUN/Creatinine Ratio 25.71 H (12.00-20.00) Ratio Glucose 214 H (70-110) mg/dL Calcium 8.2 L (8.7-10.3) mg/dL Assessment and Plan Plan: 1 acute hypoxic respiratory failure secondary to acute CHF exacerbation. Status post Lasix 20 mg IV 1 time dose currently on Aldactone. Cardiology consult placed. I and O monitoring. Low-salt diet. 2 L fluid restriction continue Lasix 40 mg by mouth daily. Patient continues to require oxygen despite diuresis. Walking pulse ox dropped patient's oxygen down to 84%. Patient needs to go home on oxygen for 24 hours 2 history of proximal atrial fibrillation continue Eliquis 5 mg twice daily. Continue labetalol 400 twice a day 3. CK D3 creatinine baseline 1.3 - 1.5 nephrology consulted 4. Squamous cell skin cancer under the care of radiation oncology at [facility]. 5. Hypertension. Continue Norvasc 5 mg twice daily, hydralazine 50 mg 3 times daily, labetalol. 6. Hyperlipidemia. Continue pravastatin 20 mg by mouth daily 7. Obstructive sleep apnea. Continue BiPAP. 8. Diabetes mellitus type 1 status post pancreas. Stable. 9. Pancreas and kidney transplant. Consult with nephrology. Prednisone 5 mg po daily and Prograf 0.5 mg twice daily to be continued crushed sublingual. Updraft levels pending 10. Benign prostatic hypertrophy. Continue Flomax 0.4 mg daily. 11. DVT prophylaxis. Eliquis. SCDs and LAZARO hose. 12. GI prophylaxis. Protonix. Disposition likely discharge tomorrow with home oxygen
[2020-10-24] MEDS: MONTELUKAST 10 MG TAB PO SCH (21:15)
[2020-10-24] MEDS: TACROLIMUS 0.5 MG CAP PO SCH (21:16)
--- NOTE | 2020-10-25 06:54 | XR ---
EXAMINATION TYPE: XR chest 1V DATE OF EXAM: 10/25/2020 COMPARISON: Chest x-ray 10/23/2020 HISTORY: Shortness of breath TECHNIQUE: Single frontal view of the chest is obtained. FINDINGS: Interstitium is increased. Patchy airspace disease is present bilaterally. Heart is enlarg ed. Surgical clips present in the supraclavicular region on the left. No evident pneumothorax or siza ble effusion. IMPRESSION: Correlate for congestive heart failure, pneumonia not excluded.
[2020-10-25] MEDS: allopurinoL 100 MG TAB PO SCH (07:55)
[2020-10-25] MEDS: TAMSULOSIN 0.4 MG CAP.ER.24H PO SCH (07:55)
[2020-10-25] MEDS: FERROUS SULFATE 325 MG TAB PO SCH (07:55)
[2020-10-25] MEDS: APIXABAN 5 MG TAB PO SCH (07:56)
[2020-10-25] MEDS: SPIRONOLACTONE 25 MG TAB PO SCH (07:56)
[2020-10-25] MEDS: PRAVASTATIN SODIUM 20 MG TAB PO SCH (07:56)
[2020-10-25] MEDS: PANTOPRAZOLE 40 MG TABLET PO SCH (07:56)
[2020-10-25] MEDS: SODIUM BICARBONATE TAB 650 MG TAB PO SCH (07:56)
[2020-10-25] MEDS: amLODIPine 5 MG TAB PO SCH (07:56)
[2020-10-25] MEDS: LABETALOL 200 MG TAB PO SCH (07:57)
[2020-10-25] MEDS: predniSONE 5 MG TAB PO SCH (07:57)
[2020-10-25] MEDS: TACROLIMUS 1 MG CAP PO SCH (07:58)
[2020-10-25] MEDS: hydrALAZINE HCL 50 MG TAB PO SCH (07:58)
[2020-10-25] MEDS: NON FORMULARY DRUG (Niacinamide [Niacinamide] 500 MG Tablet) PO SCH (08:00)
--- NOTE | 2020-10-25 08:26 | P.PN ---
Subjective Progress Note Date: 10/25/20 Principal diagnosis: Acute hypoxic respiratory failure due to exacerbation of CHF and fluid overload with acute on chronic diastolic heart failure Sleep disorder breathing and sleep apnea Chronic kidney disease stage III Status post pancreatic door renal transplant Acute on chronic diastolic heart failure Hypertension hypertensive cardiovascular disease Hypomagnesemia Immunosuppressed status due to immunosuppressive agent for pancreatic or adrenal transplant COVID-19 negative status 10/25/2020, patient seen eval examined labs reviewed medications reviewed care plan discussed, patient is resting, breathing is improved, patient is on auto CPAP, tolerated CPAP machine very well due to sleep disorder breathing and sleep apnea at night and when necessary during the day. Chest x-ray performed today revealed prominent this interstitium patchy airspace disease present, likely related to fluid overload heart failure as his BNP is over 4500 doubt infectious process Oct 24 2020, patient seen eval examined in respiratory status slightly improved denies any chest pain remains on 2 L oxygen, breathing slightly better has been diuresed, This is a 55-year-old male with history of sleep disorder breathing and sleep apnea, patient sees Dr. VERONICA waddell for pulmonary related issues, he has chronic kidney disease status post pancreatic and renal transplant, he also has history of congestive heart failure diastolic heart failure and sleep apnea came into the hospital with increasing shortness of breath however denies any chest pain off and on dry nonproductive cough is present, his x-ray was suggestive of CHF- like changes with pulmonary vascular congestion and interstitial edema, covert testing is negative, BNP is high over 4000, patient is currently on 2 L oxygen sats are in low 90s, patient is a nonsmoker lifelong Objective - Vital Signs Vital signs: Vital Signs Temp 97.9 F 10/25/20 05:00 Pulse 72 10/25/20 05:00 Resp 20 10/25/20 05:00 BP 146/77 10/25/20 05:00 Pulse Ox 98 10/25/20 05:00 Intake & Output 10/24/20 10/25/20 10/25/20 18:59 06:59 18:59 Intake Total 780 600 Balance 780 600 Weight 72 kg Intake: Oral 780 600 Other: Voiding Method Urinal Urinal # Voids 2 1 - Exam - Constitutional General appearance: average body habitus, mild distress - EENT Eyes: PERRLA Ears: bilateral: normal - Neck Neck: normal ROM Carotids: bilateral: upstroke normal - Respiratory Respiratory: bilateral: rales - Cardiovascular Rhythm: regular Heart sounds: normal: S1, S2 - Gastrointestinal General gastrointestinal: normal bowel sounds, soft - Neurologic Neurologic: CNII-XII intact - Musculoskeletal Musculoskeletal: gait normal, generalized weakness, strength equal bilaterally - Psychiatric Psychiatric: A&O x's 3, appropriate affect, intact judgment & insight - Labs CBC & Chem 7: 10/23/20 04:34 10/24/20 05:49 Labs: Abnormal Lab Results - Last 24 Hours (Table) 10/24/20 Range/Units 05:49 BUN 36.0 H (9.0-27.0) mg/dL Est GFR (CKD-EPI)NonAf 55.4 L (60.0-200.0) BUN/Creatinine Ratio 25.71 H (12.00-20.00) Ratio Glucose 214 H (70-110) mg/dL Calcium 8.2 L (8.7-10.3) mg/dL Assessment and Plan Assessment: Acute hypoxic respiratory failure due to exacerbation of CHF and fluid overload with acute on chronic diastolic heart failure Interstitial lung disease likely multifactorial would need to follow up on a long-term basis may very well be due to fluid overload heart failure Sleep disorder breathing and sleep apnea Chronic kidney disease stage III Status post pancreatic and renal transplant Acute on chronic diastolic heart failure Hypertension hypertensive cardiovascular disease Hypomagnesemia Immunosuppressed status due to immunosuppressive agent for pancreatic or adrenal transplant COVID-19 negative status Plan: Agree with gentle diuresis Continue supplemental oxygen titrated oxygen down to room air keeping saturation 90-92% or above Continue home medications including direct oral anticoagulants Continue Prograf, low-dose maintenance suppressive prednisone Further plan of care as per clinical response of the patient Agree with discharge planning follow-up on outpatient basis Continue CPAP Time with Patient: Greater than 30
[2020-10-25] MEDS: ALBUTEROL NEBULIZED 2.5 MG/3 ML INHALATION SCH ×2 (08:57→12:13)
[2020-10-25] MEDS ORDERED: FUROSEMIDE 40 MG TAB PO SCH (09:00)
[2020-10-25 09:54] LABS: African American GFR (CKD) 54.6 (60.0-200.0); Anion Gap 11.1 mmol/L (4.00-12.00); BUN/Creat Ratio 31.88 Ratio (12.00-20.00); Calcium 8.6 mg/dL (8.7-10.3); Carbon Dioxide 20.9 mmol/L (21.6-31.8); Magnesium 1.9 mg/dL (1.5-2.4); Non-African American GFR(CKD) 47.1 (60.0-200.0); Potassium 4.7 mmol/L (3.5-5.5)
--- NOTE | 2020-10-25 10:49 | P.PN ---
Subjective Patient is seen in follow-up for chronic kidney disease and renal transplant management. Renal function is a little worse today. Currently on 2 L nasal cannula. Blood pressure controlled. No chest pain or shortness of breath. Agitated because wants to go home. Vital signs are stable. General: The patient appeared well nourished and normally developed. HEENT: Head exam is unremarkable. Neck is without jugular venous distension. LUNGS: Breath sounds decreased. HEART: Rate and Rhythm are regular. ABDOMEN: Soft, nontender. EXTREMITITES: No edema. Objective - Vital Signs Vital signs: Vital Signs Temp 97.9 F 10/25/20 05:00 Pulse 76 10/25/20 09:11 Resp 20 10/25/20 05:00 BP 146/77 10/25/20 05:00 Pulse Ox 98 10/25/20 05:00 Intake & Output 10/24/20 10/25/20 10/25/20 18:59 06:59 18:59 Intake Total 780 600 Balance 780 600 Weight 72 kg Intake: Oral 780 600 Other: Voiding Method Urinal Urinal Urinal # Voids 2 1 - Labs CBC & Chem 7: 10/23/20 04:34 10/25/20 06:36 Labs: Abnormal Lab Results - Last 24 Hours (Table) 10/25/20 Range/Units 06:36 Carbon Dioxide 20.9 L (21.6-31.8) mmol/L BUN 51.0 H (9.0-27.0) mg/dL Creatinine 1.6 H (0.6-1.5) mg/dL Est GFR (CKD-EPI)AfAm 54.6 L (60.0-200.0) Est GFR (CKD-EPI)NonAf 47.1 L (60.0-200.0) BUN/Creatinine Ratio 31.88 H (12.00-20.00) Ratio Glucose 181 H (70-110) mg/dL Calcium 8.6 L (8.7-10.3) mg/dL Assessment and Plan Plan: Assessment: 1. Chronic kidney disease stage III with baseline creatinine 1.2-1.5. Renal function a little worse today due to diuresis. Creatinine 1.6 today. 2. Status post living related renal transplant in 2000. 3. Status post pancreatic transplant. 4. Acute on chronic diastolic CHF. 5. Mild volume overload. Maintained on oral Lasix. 6. Hypertension with chronic kidney disease. Stable. 7. Chronic kidney disease mineral bone disease maintained on calcitriol. 8. Hypomagnesemia from poor intake and CNI use. Replaced. Better. 9. Metabolic acidosis secondary to chronic kidney disease maintained on oral bicarbonate. Plan: Maintain home dose Prograf and prednisone. Follow-up Prograf level. Maintain oral Lasix. Continue to monitor renal function and urine output.
[2020-10-25 11:53] VITALS: BP 136/70; RESP 18; TEMP 97.8
[2020-10-25 12:15] VITALS: PULSE 80
--- NOTE | 2020-10-25 12:29 | P.DS ---
Providers Date of admission: 10/23/20 05:17 Attending physician: Tong Deras Consults: 10/23/20 05:17 Consult Physician Routine Consulting Provider: Roberth Ann Consult Reason/Comments: copd Do you want consulting provider notified?: Yes 10/23/20 10:29 Consult Physician Routine Consulting Provider: Jeremiah Adhikari Consult Reason/Comments: CKD, h/o renal transplant Do you want consulting provider notified?: Yes Primary care physician: Sujit Cartagena [facility] Course: his is a 54-year-old male patient of , Dr. Adhikari, Dr. 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 Serrano radiation oncologist at [facility], obstructive sleep apnea on BiPAP, hypertension, hyperlipidemia, benign prostatic hypertrophy who was admitted for small bowel obstruction in June 2020 followed by admission for CHF and multifocal pneumonia at [facility] 3 weeks ago. Patient comes in this time with shortness of breath that started few days ago. Patient monitor his oxygen at home and noted it going down to 70% on room air. He does not wear oxygen at home but does wear CPAP at night. Patient does endorse shortness of breath associated with lying down and nocturnal ort hopnea. Patient denies any chest pain, palpitation, cough with phlegm production. In the ER patient had a chest x-ray which suggested pulmonary vascular congestion, COVID-19 testing was negative. ProBNP level was 4570, troponin 2 were negative. Hemoglobin 11.3, INR 1.1, sodium 134, potassium 3.9, BUN 28, creatinine 1.5, glucose 123, magnesium 1.4, total bilirubin 1.6, alk phos 167 CK 33 CRP 8.3, lipase 51 EKGs show sinus rhythm with premature atrial complexes. Vital suggest temp of 98 pulse 74 respiratory rate 20 blood pressure 139/73 patient received 20 mg of IV Lasix once. Patient was evaluated by cardiology who would continue Aldactone and hold further IV Lasix was this point. Prograf levels ordered. 10/24 and patient examined bedside. Feeling better on current oxygen setting. Patient does not wear oxygen at home on assessment patient is white as patient had temp of 97 pulse 72 respiratory rate 18 blood pressure 123/67 patient had walking pulse ox today. He will was 90% on room air dropped to 84% on exertion which improved to 95% on 2 L of oxygen. Patient would need oxygen to be discharged home. Labs reviewed patient a BUN of 36 creatinine 1.4 glucose to 140 2.1 troponin is 2 is negative. Prograf levels are pending at this moment. Continue Lasix at 40 mg by mouth daily. I repeated his chest x-ray has been ordered for tomorrow. Pulmonary and nephrology recommendation erica 10/25 and examined bedside. He is doing better than yesterday. He is not requiring any oxygen at rest but it does need oxygen on exertion. Walking loss pulse ox performed on patient and patient would benefit from home oxygen. Vitals were reviewed patient is afebrile pulse 72 respiratory rate 20 blood pressure 196/76. Labs to be revealed, patient has a BUN of 51 and creatinine 1 .6 increased from yesterday. Patient stays on Lasix 40 mg by mouth daily per nephrology recommendation. Patient did repeat BMP in 1 week and follow for Dr. Adhikari as outpatient. chest x-ray from today does show increased airway density concerning for pneumonia versus CHF. We will discharge patient on Augmentin for 7 days along with Lasix 40 daily. ROS Constitutional: Denies chills, Denies fever, Denies lethargy, Denies malaise, Denies poor appetite, Denies weakness, Denies weight loss Eyes: denies decreased vision, denies diplopia, denies discharge, denies pain Ears: deny: decreased hearing Ears, nose, mouth and throat: Denies dental pain, Denies headache, Denies nasal discharge, Denies nose pain Cardiovascular: Denies chest pain, Denies decreased exercise tolerance, Denies edema, Denies high blood pressure, Denies irregular heart beat, Denies palpitations, Denies paroxysmal nocturnal dyspnea, Denies rapid heart beat, Denies shortness of breath Respiratory: Denies congestion, Denies cough, Denies cough with sputum, endorses improved dyspnea, Denies home oxygen, Denies wheezing Gastrointestinal: Denies abdominal pain, Denies change in bowel habits, Denies coffee ground emesis, Denies early satiety, Denies excessive gas, Denies heartburn, Denies hematemesis, Denies hematochezia, Denies loss of appetite, Denies nausea, Denies vomiting Physical exam - Constitutional General appearance: cooperative, no acute distress - EENT Eyes: anicteric sclerae, PERRLA, normal appearance ENT: hearing grossly normal - Neck Neck: no lymphadenopathy, normal ROM, no other, no rigidity, no stridor, no thyromegaly - Respiratory Respiratory:Decreased air entry Cardiovascular Rhythm: regular Heart sounds: normal: S1, S2 Abnormal Heart Sounds: 3/6 systolic murmur, no diastolic murmur, no rub, no S3 Gallop, no S4 Gallop - Gastrointestinal General gastrointestinal: normal bowel sounds, soft - Integumentary Integumentary: Multiple skin graft over the head and the chest - Psychiatric Psychiatric: A&O x's 3 discharge diagnoses 1 acute hypoxic respiratory failure secondary to acute CHF exacerbation and possible gram negative pneumonia . 2 history of proximal atrial fibrillation 3. CK D3 creatinine baseline 1.3 - 1.5 4. Squamous cell skin cancer under the care of radiation oncology at [facility]. 5. Hypertension. 6. Hyperlipidemia. 7. Obstructive sleep apnea. 8. Diabetes mellitus type 1 status post pancreas. 9. Pancreas and kidney transplant. 10. Benign prostatic hypertrophy. Disposition discharged home with home oxygen 2 L on exertion Patient Condition at Discharge: Fair Plan - Discharge Summary New Discharge Prescriptions: New Furosemide [Lasix] 40 mg PO DAILY #30 tab Amoxic-Pot Clav 875-125Mg [Augmentin 875-125] 1 tab PO Q12HR 7 Days #2 tab Continue Pravastatin Sodium [Pravachol] 20 mg PO MOTUTHSA Sodium Bicarbonate Tab 1,300 mg PO BID Lansoprazole 30 mg PO DAILY Tamsulosin [Flomax] 0.4 mg PO BID Apixaban [Eliquis] 5 mg PO BID Ferrous Sulfate [Iron (65 MG Elemental)] 325 mg PO BID calcitrioL [Rocaltrol] 0.5 mcg PO MOWEFR allopurinoL [Zyloprim] 200 mg PO DAILY Montelukast [Singulair] 10 mg PO HS predniSONE 5 mg PO DAILY amLODIPine [Norvasc] 5 mg PO BID Labetalol HCl 400 mg PO BID hydrALAZINE HCL [Apresoline] 50 mg PO TID #90 tab calcitrioL [Rocaltrol] 0.25 mcg PO SUTUTHSA Tacrolimus [Prograf] 0.5 mg PO HS Spironolactone [Aldactone] 25 mg PO DAILY #30 tab Ergocalciferol [Vitamin D2 (DRISDOL)] 50,000 unit PO WE Tacrolimus [Prograf] 1 mg PO DAILY Niacinamide 500 mg PO BID Discharge Medication List Pravastatin Sodium [Pravachol] 20 mg PO MOTUTHSA 11/23/13 [History] Sodium Bicarbonate Tab 1,300 mg PO BID 11/23/13 [History] Lansoprazole 30 mg PO DAILY 07/14/18 [History] Apixaban [Eliquis] 5 mg PO BID 09/18/18 [History] Tamsulosin [Flomax] 0.4 mg PO BID 09/18/18 [History] Ferrous Sulfate [Iron (65 MG Elemental)] 325 mg PO BID 12/17/18 [History] Montelukast [Singulair] 10 mg PO HS 12/17/18 [History] allopurinoL [Zyloprim] 200 mg PO DAILY 12/17/18 [History] calcitrioL [Rocaltrol] 0.5 mcg PO MOWEFR 12/17/18 [History] predniSONE 5 mg PO DAILY 03/09/19 [History] Labetalol HCl 400 mg PO BID 11/15/19 [History] amLODIPine [Norvasc] 5 mg PO BID 11/15/19 [History] hydrALAZINE HCL [Apresoline] 50 mg PO TID #90 tab 11/17/19 [Rx] Tacrolimus [Prograf] 0.5 mg PO HS 03/03/20 [History] calcitrioL [Rocaltrol] 0.25 mcg PO SUTUTHSA 03/03/20 [History] Spironolactone [Aldactone] 25 mg PO DAILY #30 tab 03/04/20 [Rx] Ergocalciferol [Vitamin D2 (DRISDOL)] 50,000 unit PO WE 05/02/20 [History] Tacrolimus [Prograf] 1 mg PO DAILY 05/02/20 [History] Niacinamide 500 mg PO BID 10/23/20 [History] Amoxic-Pot Clav 875-125Mg [Augmentin 875-125] 1 tab PO Q12HR 7 Days #2 tab 10/25/20 [Rx] Furosemide [Lasix] 40 mg PO DAILY #30 tab 10/25/20 [Rx] Follow up Appointment(s)/Referral(s): Silvia Jordan MD [STAFF PHYSICIAN] - 11/07/20 10:00 am Sujit Cartagena MD [Primary Care Provider] - 1-2 days (office is currently closed, please call for appointment. ) Jeremiah Adhikari DO [STAFF PHYSICIAN] - 12/01/20 9:20 am Patient Instructions/Handouts: Heart Failure (DC), COPD (Chronic Obstructive Pulmonary Disease) (DC), Community Acquired Pneumonia (DC) Activity/Diet/Wound Care/Special Instructions: 2 L of oxygen on exertion BMP n 1 week Discharge Disposition: HOME SELF-CARE
[2020-10-26] MEDS ORDERED: ERGOCALCIFEROL 1,250 MCG (50,000 IU) CAPSULE PO SCH (09:00)
== END 2020-10-25 14:41 | disposition home or self-care (01) | DRG 291 ==
LOC: EC 04:08 → 5NMEDONC 05:17
PROVIDERS: ADMIT Internal Medicine Geriatric Medicine; ATTEND Internal Medicine Geriatric Medicine
PROC: 5A09457 Assistance with Respiratory Ventilation, 24-96 Consecutive Hours, Continuous Positive Airway Pressure (ICD-10-PCS; principal; 2020-10-24)
DX: I13.0 Hypertensive heart and chronic kidney disease with heart failure and stage 1 through stage 4 chronic kidney disease, or unspecified chronic kidney disease (principal); I50.33 Acute on chronic diastolic (congestive) heart failure; J96.01 Acute respiratory failure with hypoxia; Z94.83 Pancreas transplant status; Z94.0 Kidney transplant status; J44.1 Chronic obstructive pulmonary disease with (acute) exacerbation; D84.9 Immunodeficiency, unspecified; K56.609 Unspecified intestinal obstruction, unspecified as to partial versus complete obstruction; J84.9 Interstitial pulmonary disease, unspecified; Z20.822 Contact with and (suspected) exposure to COVID-19; E78.5 Hyperlipidemia, unspecified; I48.0 Paroxysmal atrial fibrillation; Z79.01 Long term (current) use of anticoagulants; N18.30 Chronic kidney disease, stage 3 unspecified; E10.22 Type 1 diabetes mellitus with diabetic chronic kidney disease; M89.8X9 Other specified disorders of bone, unspecified site; E83.42 Hypomagnesemia; E10.319 Type 1 diabetes mellitus with unspecified diabetic retinopathy without macular edema; Z79.4 Long term (current) use of insulin; G47.33 Obstructive sleep apnea (adult) (pediatric); N40.0 Benign prostatic hyperplasia without lower urinary tract symptoms; Z85.828 Personal history of other malignant neoplasm of skin; I49.1 Atrial premature depolarization; Z79.899 Other long term (current) drug therapy; C44.92 Squamous cell carcinoma of skin, unspecified; Z79.52 Long term (current) use of systemic steroids; M19.90 Unspecified osteoarthritis, unspecified site; N28.9 Disorder of kidney and ureter, unspecified; Z83.3 Family history of diabetes mellitus; Z80.0 Family history of malignant neoplasm of digestive organs; Z82.3 Family history of stroke; M14.679 Charcot's joint, unspecified ankle and foot; T50.2X5A Adverse effect of carbonic-anhydrase inhibitors, benzothiadiazides and other diuretics, initial encounter; Z96.1 Presence of intraocular lens
CPT/HCPCS: 36415; 71045; 71046; 80048; 80053; 80197; 82550; 83605; 83615; 83735; 83880; 84484; 85025; 85610; 85730; 86140; 87635; 93005; 94640; 94644; 94660; 94760; 96361; 96374; 96375; 99291

== ENCOUNTER → 2020-11-21 | Outpatient (CLI) | payer MEDICARE ==
[2020-11-21 14:34] LABS: Basophils % (A) 0 %; Eosinophils % (A) 0 %; HCT 35.3 % (39.0-53.0); HGB 12.2 gm/dL (13.0-17.5); Lymphocytes # (A) 0.5 k/uL (1.0-4.8); Lymphocytes % (A) 5 %; MCHC 34.6 g/dL (31.0-37.0); MCV 89.7 fL (80.0-100.0); Mean Platelet Volume 6.6; Monocytes # (A) 0.6 k/uL (0-1.0); Monocytes % (A) 5 %; Neutrophils # (A) 9.7 k/uL (1.3-7.7); Neutrophils % (A) 89 %; Platelet Count 219 k/uL (150-450); RBC 3.93 m/uL (4.30-5.90); RDW 14.7 % (11.5-15.5); WBC 10.9 k/uL (3.8-10.6)
[2020-11-21 14:36] LABS: Appearance,Urine Cloudy (Clear); Bacteria,Urine Rare /hpf; Bilirubin,Urine Negative (Negative); Blood,Urine Negative (Negative); Color,Urine Yellow; Glucose,Urine (UA) Negative (Negative); Hyaline Casts,Urine 3 /lpf (0-2); Ketones,Urine Negative (Negative); Leukocyte Esterase,Urine Large (Negative); Mucus,Urine Rare /hpf; Nitrite,Urine Negative (Negative); Protein,Urine 1+ (Negative); RBC,Urine 1 /hpf (0-5); Specific Gravity,Urine 1.011 (1.001-1.035); Squamous Epithelial Cell,Urine <1 /hpf (0-4); Urobilinogen,Urine <2.0 mg/dL (<2.0); WBC,Urine 8 /hpf (0-5)
[2020-11-21 14:46] LABS: Calcium 9.5 mg/dL (8.4-10.2)
== END | disposition home or self-care (01) ==
LOC: LABPAT 14:02
PROVIDERS: ATTEND Urology
DX: Z01.812 Encounter for preprocedural laboratory examination (principal); N40.1 Benign prostatic hyperplasia with lower urinary tract symptoms; R35.0 Frequency of micturition
CPT/HCPCS: 36415; 80048; 81001; 85025; 87086

== ENCOUNTER 2020-11-28 06:45 | Day surgery (SDC) | payer MEDICARE ==
[2020-11-23 14:10] VITALS: BMI 23.1
--- NOTE | 2020-11-27 19:04 | P.HPIHPCON ---
History of Present Illness H&P Date: 11/27/20 Chief Complaint: BPH This is a 55 yo male with hx of BPH and recurrent urinary retention. He underwent a cystoscopy which showed evidence of an obstructive bilateral lateral lobes, he has not had improvement in symptoms despite medical therapy. Surgical options were discussed with him, he agreed to proceed with Urolift. Discussed with him the risk which includes but not limited to bleeding, infection, urinary incontinence, persistent urinary symptoms and medical complication from surgery. He understood all risks and agreed to proceed Consent for Procedure: I have explained the operation/procedure to the patient, including the risks, benefits, side effects, alternative therapies (including not receiving the proposed treatment or service), the likelihood of the patient achieving his/her goals, and potential recuperation problems for the procedure/sedation/analgesia, as well as any blood products, if indicated. I also explained to the patient the risks, benefits and side effects of the alternatives, as well as the risks related to not receiving the proposed procedure, care, treatment, or services. Past Medical History Past Medical History: Cancer, Heart Failure, COPD, Diabetes Mellitus, Hyperlipidemia, Hypertension, Osteoarthritis (OA), Prostate Disorder, Renal Disease, Sleep Apnea/CPAP/BIPAP Additional Past Medical History / Comment(s): ARDS, hx of DM was tx for dm from age 9- 35, had pancreas transplant), uses cpap machine, basal/squamous cell skin cancer, cancer on neck had surg & radiation on neck 02/2020. hx rt elbow broken-(sx), charcots foot, pancreatitis, bladder leakage History of Any Multi-Drug Resistant Organisms: None Reported Past Surgical History: Hernia Repair, Joint Replacement Additional Past Surgical History / Comment(s): 2 kidney and 1 pancreas transplant, L knee replacment, rt elbow sx has 7 screws,cataracts removed-lens implants, laser eye sx for retinopathy, fernando foot sx(rt foot bone gravt and lt foot bone shaved), skin cancer removed on his head, Past Anesthesia/Blood Transfusion Reactions: No Reported Reaction Smoking Status: Never smoker - Past Family History Mother Family Medical History: Cancer, Diabetes Mellitus Additional Family Medical History / Comment(s): liver cancer Father Family Medical History: CVA/TIA Additional Family Medical History / Comment(s): was smoker had stroke in his 30's Medications and Allergies Home Medications Medication Instructions Recorded Confirmed Type Pravastatin Sodium [Pravachol] 20 mg PO MOTUTHSA 11/23/13 11/23/20 History Sodium Bicarbonate Tab 1,300 mg PO BID 11/23/13 11/23/20 History Lansoprazole 30 mg PO DAILY 07/14/18 11/23/20 History Apixaban [Eliquis] 5 mg PO BID 09/18/18 11/23/20 History Tamsulosin [Flomax] 0.4 mg PO BID 09/18/18 11/23/20 History Ferrous Sulfate [Iron (65 MG 325 mg PO BID 12/17/18 11/23/20 History Elemental)] Montelukast [Singulair] 10 mg PO HS 12/17/18 11/23/20 History allopurinoL [Zyloprim] 200 mg PO DAILY 12/17/18 11/23/20 History calcitrioL [Rocaltrol] 0.5 mcg PO MOWEFR 12/17/18 11/23/20 History predniSONE 5 mg PO DAILY 03/09/19 11/23/20 History Labetalol HCl 400 mg PO BID 11/15/19 11/23/20 History amLODIPine [Norvasc] 5 mg PO BID 11/15/19 11/23/20 History hydrALAZINE HCL [Apresoline] 50 mg PO TID #90 tab 11/17/19 11/23/20 Rx Tacrolimus [Prograf] 0.5 mg PO HS 03/03/20 11/23/20 History calcitrioL [Rocaltrol] 0.25 mcg PO SUTUTHSA 03/03/20 11/23/20 History Ergocalciferol [Vitamin D2 50,000 unit PO WE 05/02/20 11/23/20 History (DRISDOL)] Tacrolimus [Prograf] 1 mg PO DAILY 05/02/20 11/23/20 History Niacinamide 500 mg PO BID 10/23/20 11/23/20 History Albuterol Sulfate [Proair Hfa] 1 - 2 puff INHALATION Q6HR PRN #1 10/25/20 11/23/20 Rx inhaler Spironolactone [Aldactone] 25 mg PO HS 11/23/20 11/23/20 History Allergies Allergy/AdvReac Type Severity Reaction Status Date / Time Iodine and Iodide Containing AdvReac HX OF Verified 11/23/20 12:56 Produc KIDNEY DISEASE Surgical - Exam - General well developed, well nourished, no distress, no pain - Eyes PERRL, normal ocular movement - ENT normal nares, normal mucosa - Psychiatric oriented to time, oriented to person, oriented to place Assessment and Plan Assessment: 55 yo male with hx of BPH -OR for Urolift
[~2020-11-28 06:45] MED LIST: DEXAMETHASONE SOD PHOSPHATE 4 MG/ML 1 ML VIAL IV ONE; HYDROmorphone 0.5 MG/0.5 ML SYRINGE IVP PRN; LACTATED RINGERS 1,000 ML IV SCH; LIDOCAINE 1% (10MG/ML) FOR IV START INTRADERMA PRN; MIDAZOLAM 2 MG/2 ML VIAL IV PRN; ONDANSETRON 4 MG/2 ML VIAL IVP ONE
[2020-11-28 07:14] VITALS: TEMP 97.7
[2020-11-28] MEDS ORDERED: LACTATED RINGERS 1,000 ML IV ONE (07:14)
[2020-11-28 07:25] LABS: Glucose,Whole Blood 109 mg/dL (75-99)
[2020-11-28] MEDS ORDERED: MIDAZOLAM 2 MG/2 ML VIAL ONE (08:38)
[2020-11-28] MEDS ORDERED: fentaNYL (PF) 50 MCG/ML 2 ML AMP ONE (08:38)
[2020-11-28] MEDS ORDERED: PROPOFOL 10 MG/ML 20 ML VIAL IV ONE (08:38)
[2020-11-28] MEDS ORDERED: LIDOCAINE 1% INJ 10MG/ML (20 ML MDV) ONE (08:38)
--- NOTE | 2020-11-28 09:16 | P.OP ---
Date of Procedure: 11/28/20 Preoperative Diagnosis: BPH Postoperative Diagnosis: Same Procedure(s) Performed: Cystoscopy, urolift Implants: [id number] Anesthesia: REIDA Surgeon: Amandeep Hill Estimated Blood Loss (ml): 5 Pathology: none sent Condition: stable Disposition: PACU Indications for Procedure: This is a 55 yo male with hx of BPH and recurrent urinary retention. He underwent a cystoscopy which showed evidence of an obstructive bilateral lateral lobes, he has not had improvement in symptoms despite medical therapy. Surgical options were discussed with him, he agreed to proceed with Urolift. Discussed with him the risk which includes but not limited to bleeding, infection, urinary incontinence, persistent urinary symptoms and medical complication from surgery. He understood all risks and agreed to proceed Operative Findings: Bilateral obstructive lateral lobes Description of Procedure: Patient was brought to the operating room, general anesthesia was induced. He was prepped and draped in sterile fashion and placed in dorsal lithotomy position. Cystoscopy fitted with 20-Belize[place] sheath was inserted per urethra, cystoscopy was performed which showed no abnormality within the bladder, of note patient had bilateral obstructive lateral lobes. Attention was then carried to the urolift implants. A total of 6 implants were placed, 3 on the right side, and 3 on the left side. Implants were placed distal to the bladder neck, but proximal to the Veru. Repeat cystoscopy showed no evidence of implant perforation into the bladder. Repeat cystoscopy also demonstrated an open anterior channel within the prostate. There was no evidence of bleeding, bladder was emptied at end of the case. Patient tolerated the procedure well was taken to PACU in stable condition
[2020-11-28 09:21] VITALS: RESP 16
[2020-11-28] MEDS ORDERED: TAMSULOSIN 0.4 MG CAP.ER.24H PO ONE (10:56)
[2020-11-28 12:59] VITALS: BP 116/74; PULSE 66
== END 2020-11-28 12:53 | disposition home or self-care (01) ==
LOC: OR 06:45
PROVIDERS: ATTEND Urology
DX: N40.1 Benign prostatic hyperplasia with lower urinary tract symptoms (principal); R33.8 Other retention of urine; I11.0 Hypertensive heart disease with heart failure; I50.9 Heart failure, unspecified; E78.5 Hyperlipidemia, unspecified; M19.90 Unspecified osteoarthritis, unspecified site; E11.9 Type 2 diabetes mellitus without complications; Z94.0 Kidney transplant status; Z94.83 Pancreas transplant status; G47.33 Obstructive sleep apnea (adult) (pediatric); Z91.041 Radiographic dye allergy status; Z79.899 Other long term (current) drug therapy; I48.91 Unspecified atrial fibrillation; Z79.01 Long term (current) use of anticoagulants; Z79.52 Long term (current) use of systemic steroids
CPT/HCPCS: C9740; L8699; J2250; J1100; J0690; J2405; J2001; J3010; J2704

== ENCOUNTER 2021-01-05 20:05 | Emergency (ER) | payer MEDICARE ==
[2021-01-05 20:09] VITALS: BP 143/75; PULSE 79; RESP 18; TEMP 98.1
[2021-01-05] MEDS ORDERED: DIPH,PERTUS(ACELL)TETVAC-LF 0.5 ML VIAL IM ONE (20:27)
[2021-01-05] MEDS ORDERED: LIDOCAINE 1% INJ 10MG/ML (20 ML MDV) SQ ONE (20:28)
--- NOTE | 2021-01-05 21:01 | ED ---
Wound/Laceration HPI - General Chief Complaint: Wound/Laceration Stated Complaint: R leg laceration Time Seen by Provider: 01/05/21 20:14 Source: patient Mode of arrival: ambulatory - History of Present Illness Initial Comments: 55-year-old male presents to emergency Department with a chief complaint laceration. This occurred about one hour prior to arrival. Patient reports he slipped on a boat and lacerated his right miner. Reports minimal pain. He is on blood thinners. Tetanus updated. Denies any weakness paresthesias to the leg. Bleeding has since resolved. Denies any head injuries. - Related Data Home Medications Medication Instructions Recorded Confirmed Pravastatin Sodium [Pravachol] 20 mg PO MOTUTHSA 11/23/13 11/23/20 Sodium Bicarbonate Tab 1,300 mg PO BID 11/23/13 11/23/20 Lansoprazole 30 mg PO DAILY 07/14/18 11/23/20 Apixaban [Eliquis] 5 mg PO BID 09/18/18 11/23/20 Tamsulosin [Flomax] 0.4 mg PO BID 09/18/18 11/23/20 Ferrous Sulfate [Iron (65 MG 325 mg PO BID 12/17/18 11/23/20 Elemental)] Montelukast [Singulair] 10 mg PO HS 12/17/18 11/23/20 allopurinoL [Zyloprim] 200 mg PO DAILY 12/17/18 11/23/20 calcitrioL [Rocaltrol] 0.5 mcg PO MOWEFR 12/17/18 11/23/20 predniSONE 5 mg PO DAILY 03/09/19 11/23/20 Labetalol HCl 400 mg PO BID 11/15/19 11/23/20 amLODIPine [Norvasc] 5 mg PO BID 11/15/19 11/23/20 Tacrolimus [Prograf] 0.5 mg PO HS 03/03/20 11/23/20 calcitrioL [Rocaltrol] 0.25 mcg PO SUTUTHSA 03/03/20 11/23/20 Ergocalciferol [Vitamin D2 50,000 unit PO WE 05/02/20 11/23/20 (DRISDOL)] Tacrolimus [Prograf] 1 mg PO DAILY 05/02/20 11/23/20 Niacinamide 500 mg PO BID 10/23/20 11/23/20 Spironolactone [Aldactone] 25 mg PO HS 11/23/20 11/23/20 Previous Rx's Medication Instructions Recorded hydrALAZINE HCL [Apresoline] 50 mg PO TID #90 tab 11/17/19 Albuterol Sulfate [Proair Hfa] 1 - 2 puff INHALATION Q6HR PRN #1 10/25/20 inhaler Cephalexin [Keflex] 500 mg PO Q8HR #9 cap 11/28/20 Phenazopyridine HCl [Pyridium] 100 mg PO TID 3 Days #9 tab 11/28/20 Allergies Allergy/AdvReac Type Severity Reaction Status Date / Time Iodine and Iodide Containing AdvReac HX OF Verified 01/05/21 20:09 Produc KIDNEY DISEASE Review of Systems ROS Statement: Those systems with pertinent positive or pertinent negative responses have been documented in the HPI. ROS Other: All systems not noted in ROS Statement are negative. Past Medical History Past Medical History: Cancer, Heart Failure, COPD, Diabetes Mellitus, Hyperlipidemia, Hypertension, Osteoarthritis (OA), Prostate Disorder, Renal Disease, Sleep Apnea/CPAP/BIPAP Additional Past Medical History / Comment(s): ARDS, hx of DM was tx for dm from age 9- 35, had pancreas transplant), uses cpap machine, basal/squamous cell skin cancer, cancer on neck had surg & radiation on neck 02/2020. hx rt elbow broken-(sx), charcots foot, pancreatitis, bladder leakage History of Any Multi-Drug Resistant Organisms: None Reported Past Surgical History: Hernia Repair, Joint Replacement Additional Past Surgical History / Comment(s): 2 kidney and 1 pancreas transplant, L knee replacment, rt elbow sx has 7 screws,cataracts removed-lens implants, laser eye sx for retinopathy, fernando foot sx(rt foot bone gravt and lt foot bone shaved), skin cancer removed on his head, Past Anesthesia/Blood Transfusion Reactions: No Reported Reaction Past Psychological History: No Psychological Hx Reported Smoking Status: Never smoker Past Alcohol Use History: None Reported Past Drug Use History: None Reported - Past Family History Mother Family Medical History: Cancer, Diabetes Mellitus Additional Family Medical History / Comment(s): liver cancer Father Family Medical History: CVA/TIA Additional Family Medical History / Comment(s): was smoker had stroke in his 30's General Exam Limitations: no limitations General appearance: alert, in no apparent distress Head exam: Present: atraumatic, normocephalic, normal inspection Eye exam: Present: normal appearance, PERRL, EOMI Pupils: Present: normal accommodation ENT exam: Present: normal exam, normal oropharynx, mucous membranes moist Neck exam: Present: normal inspection, full ROM. Absent: tenderness, lymphadenopathy Respiratory exam: Present: normal lung sounds bilaterally. Absent: respiratory distress, wheezes, rales Cardiovascular Exam: Present: regular rate, normal rhythm, normal heart sounds. Absent: systolic murmur Extremities exam: Present: full ROM, normal capillary refill. Absent: normal inspection (55 laceration on the right miner), tenderness, pedal edema, joint swelling, calf tenderness Back exam: Present: normal inspection, full ROM. Absent: tenderness Neurological exam: Present: alert, oriented X3 Psychiatric exam: Present: normal affect, normal mood Skin exam: Present: warm, dry, intact, normal color Course Vital Signs 01/05/21 20:06 Temperature 98.1 F Pulse Rate 79 Respiratory 18 Rate Blood Pressure 143/75 O2 Sat by Pulse 96 Oximetry Procedures - Laceration Laceration #1 Consent Obtained: verbal consent Indication: laceration Site: lower extremity Size (cm): 5 Description: flap, clean Depth: simple, single layer Sedation/Analgesia: none Anesthetic Used: lidocaine 1% Anesthesia Technique: local infiltration Amount (mls): 5 Pre-repair: irrigated extensively, deep structures intact Type of Sutures: nylon Size of Sutures: 4-0 Number of Sutures: 8 Technique: simple, interrupted Patient Tolerated Procedure: well, no complications Medical Decision Making - Medical Decision Making 55-year-old male presents to the emergency department with a chief complaint of laceration. On physical examination, is neurovascularly intact. This was thoroughly irrigated with saline. Local anesthesia. This was repaired with 8 sutures. Patient tolerated procedure well. Tetanus was updated. Advised to return for suture removal. Case discussed with physician. Disposition Clinical Impression: Laceration Disposition: HOME SELF-CARE Condition: Stable Instructions (If sedation given, give patient instructions): Care For Your Stitches (DC), Laceration (DC) Additional Instructions: Please return to the emergency room in 14 days to have sutures removed. Please watch for any signs of infection which may include increased pain, swelling, redness, fever or chills. Please return to emergency room for any signs of in fection do occur. Please use clean soap and water over the area to prevent scabbing over your stitches. Please leave wound covered for the first 24-48 hours and then leave wound open to air. Please return to the emergency room for any other concerns. Is patient prescribed a controlled substance at d/c from ED?: No Referrals: Sujit Cartagena MD [Primary Care Provider] - 1-2 days Time of Disposition: 21:01
== END 2021-01-05 21:05 | disposition home or self-care (01) ==
LOC: EC 20:05
DX: S81.811A Laceration without foreign body, right lower leg, initial encounter (principal); E11.36 Type 2 diabetes mellitus with diabetic cataract; I11.0 Hypertensive heart disease with heart failure; I50.9 Heart failure, unspecified; E78.5 Hyperlipidemia, unspecified; J44.9 Chronic obstructive pulmonary disease, unspecified; M19.90 Unspecified osteoarthritis, unspecified site; Z79.01 Long term (current) use of anticoagulants; Z79.52 Long term (current) use of systemic steroids; Z79.51 Long term (current) use of inhaled steroids; Z79.899 Other long term (current) drug therapy; Z83.3 Family history of diabetes mellitus; Z85.828 Personal history of other malignant neoplasm of skin; Z88.8 Allergy status to other drugs, medicaments and biological substances; W26.8XXA Contact with other sharp object(s), not elsewhere classified, initial encounter; Y92.814 Boat as the place of occurrence of the external cause
CPT/HCPCS: 90715; 12002; 90471; 99282; J2001

== ENCOUNTER → 2021-05-01 | Outpatient (CLI) | payer MEDICARE ==
--- NOTE | 2021-05-01 16:05 | CT ---
EXAMINATION TYPE: CT soft tissue neck wo con DATE OF EXAM: 05/01/2021 COMPARISON: 06/22/2020 HISTORY: follow up squamous cell cancer CT DLP: 468 mGycm CONTRAST: None TECHNIQUE: Axial images at 3 mm thick sections. Reconstructed images in the coronal plane and sagitt al plane are reviewed. FINDINGS: Limited CT sections are obtained the lung apices. The lung apices appear clear. Multiple s mall lymph nodes are within the superior mediastinum. CT neck: Postsurgical clips are within the left aspect of the neck. The torus tubarius and fossa of Rosenmuller are normal. Stock Buyer spaces are normal. Paranasal sin uses appear clear. Bilateral mastoid air cells contain fluid. Correlate for acute mastoiditis Right parotid gland appear normal. Left parotid gland is not identified. Submandibular glands, are normal. Parapharyngeal spaces are normal. No enlarged adenopathy is evident. A small lymph node may be present on the left. No suspicious enlarged adenopathy is evident. The hypopharynx appears within normal limits. Vocal cord level appear symmetrical. Thyroid as visualized is normal. Osseous structures are normal. Spina bifida occulta of C1 is present, normal variant IMPRESSIONS: 1. No suspicious changes to suggest recurrent mass is evident. 2. Post surgical changes through the left neck appears stable.
== END | disposition home or self-care (01) ==
LOC: RADCTMAIN 13:49
PROVIDERS: ATTEND Radiology Radiation Oncology
DX: Z08 Encounter for follow-up examination after completed treatment for malignant neoplasm (principal); Z85.828 Personal history of other malignant neoplasm of skin
CPT/HCPCS: 70490

== ENCOUNTER → 2021-09-15 | Outpatient (CLI) | payer MEDICARE ==
--- NOTE | 2021-09-15 15:02 | US ---
EXAMINATION TYPE: US renal transplant w dop DATE OF EXAM: 09/15/2021 COMPARISON: ct 06/24/20 CLINICAL HISTORY: Z94.0 Kidney transplant status. Kidney transplant status; RLQ kidney transplant EXAM PERFORMED: Grayscale on [place] kidneys and Doppler duplex and Grayscale imaging of the transplan gerardo kidney. EXAM MEASUREMENTS: [place] Right Kidney: 5.6 x 2.4 x 3.1 cm [place] Left Kidney: 7.2 x 4.2 x 3.4 cm Transplant Kidney: 11.8 x 6.0 x 5.9 cm Location of transplanted kidney: RLQ ANATOMY: [place] Right Kidney: Atrophic [place] Left Kidney: Atrophic Transplant Kidney: Perinephric fluid; RI 0.81 Bladder: Anechoic Bilateral Jets seen: no IMPRESSION: 1. Perinephric fluid present. There is an elevated resistive index. Early renal failure should be con sidered. 2. Atrophic [place] kidneys.
== END | disposition home or self-care (01) ==
LOC: RADUSWWP 14:19
PROVIDERS: ATTEND Internal Medicine Nephrology
DX: N26.1 Atrophy of kidney (terminal) (principal); R93.429 Abnormal radiologic findings on diagnostic imaging of unspecified kidney; Z94.0 Kidney transplant status
CPT/HCPCS: 76776

== ENCOUNTER → 2021-10-20 | Outpatient (CLI) | payer MEDICARE ==
--- NOTE | 2021-10-23 06:14 | PE ---
EXAMINATION TYPE: PET CT fusion skull to thigh DATE OF EXAM: 10/20/2021 COMPARISON: Prior PET/CT October 21, [address] neck May 01, 2021. HISTORY: Squamous cell cancer left neck and scalp originally diagnosed November 2018. Completed radiati on treatment bilateral neck February 15, 2021 TECHNIQUE: Following the intravenous administration of 8.52mCi of F-18 FDG, whole body images are pe rformed from the top of head to midthigh. Images are reviewed on the computer in the coronal, axial, and sagittal planes. Reconstructed rotating images are created on independent workstation and revie wed on the computer. A localization and attenuation correction CT is performed in conjunction with the PET scan. Blood glucose level equals 127 SCAN: Subsequent Scan FINDINGS: HEAD AND NECK: Extensive left-sided postsurgical and posttreatment changes redemonstrated. Fairly sy mmetric muscular uptake is again seen including the asymmetric left supraclavicular level near level of the thyroid gland. No definitive new abnormal hypermetabolic mass or adenopathy identified. CHEST, MEDIASTINUM, AND HILAR REGION: No new areas of abnormal hypermetabolic uptake. ABDOMEN AND PELVIS: Distended bladder with surgical change redemonstrated. No new areas of abnormal h ypermetabolic uptake. OSSEOUS STRUCTURES: No new areas of abnormal hypermetabolic uptake. OTHER CT: Moderate to severe calcified plaque right carotid bulb level redemonstrated. Bilateral gyne comastia. Cardiomegaly with prominent pulmonary arteries suggesting underlying pulmonary artery hyper tension redemonstrated. Severe three-vessel coronary artery calcification redemonstrated. End-stage atrophied to both kidneys. Right pelvic transplant redemonstrated. Severe calcified plaque of smaller branch vessels redemonstrated. IMPRESSION: No definitive new suspicious abnormal hypermetabolic uptake to suggest active neoplastic recurrence.
== END | disposition home or self-care (01) ==
LOC: RADPETMAIN 13:26
PROVIDERS: ATTEND Radiology Radiation Oncology
DX: C44.42 Squamous cell carcinoma of skin of scalp and neck (principal); Z92.3 Personal history of irradiation
CPT/HCPCS: 78815; A9552

== ENCOUNTER → 2021-11-14 | Outpatient (CLI) | payer MEDICARE ==
--- NOTE | 2021-11-14 07:47 | CT ---
EXAMINATION TYPE: CT iac wo con DATE OF EXAM: 11/14/2021 COMPARISON: Recent PET CT October 20, 2021 HISTORY: Hearing Loss, Left ear. History of left-sided neck squamous cell carcinoma CT DLP: 142.70 mGycm. Automated Exposure Control for Dose Reduction was Utilized. TECHNIQUE: CT scan of internal auditory canal is performed without contrast, thin cut axial images ar e obtained, coronal reformatted images are also reviewed. FINDINGS: The external auditory canals show some patchy soft tissue density or cerumen on the left in cluding at level round window. There is surgical change anteriorly and inferiorly with residual scar tissue when correlating with recent PET/CT. There is partial opacification of left mastoid air cells. The middle ear ossicles are symmetric and unremarkable. There is no evidence of suspicious surround ing soft tissue density to suggest cholesteatoma. The scutum is asymmetrically blunted on the left. The cochlea and the semicircular canals are symmetric and unremarkable. No loss of abnormal osseous o kristina covering superior semicircular canal to suggest dehiscence. Severe calcified plaque distal internal carver al carotid arteries bilaterally. Vestibular aqueducts are symmetric and well within normal limits. Temporomandibular joints are maintained bilaterally. Mild mucosal thickening inferior maxillary sinus es bilaterally and ethmoid sinuses bilaterally. Visualized portion brain parenchyma is felt within no rmal limits. IMPRESSION: Asymmetric increased fluid signal left mastoid air cells is concerning for mastoiditis, c orrelate clinically. Posttreatment changes to region near left ear are redemonstrated .
== END | disposition home or self-care (01) ==
LOC: RADCTMAIN 07:06
PROVIDERS: ATTEND Otolaryngology
DX: H91.92 Unspecified hearing loss, left ear (principal); Z85.89 Personal history of malignant neoplasm of other organs and systems
CPT/HCPCS: 70480

== ENCOUNTER → 2021-12-05 | Outpatient (CLI) | payer MEDICARE ==
--- NOTE | 2021-12-05 10:37 | CT ---
EXAMINATION TYPE: CT abdomen pelvis wo con DATE OF EXAM: 12/05/2021 COMPARISON: PET scan dated 10/20/2021 HISTORY: Kidney transplant status CT DLP: 322.5 mGycm Automated exposure control for dose reduction was used. TECHNIQUE: Helical acquisition of images was performed from the lung bases through the pelvis. FINDINGS: LUNG BASES: Suspected cardiomegaly. Coronary arterial calcifications. LIVER/GB: No significant abnormality is appreciated. PANCREAS: Atrophic. Suspected cyst at the posterior aspect of the pancreatic body measuring 2.4 cm co mpared to 1.[address] scan. This could represent a pancreatic cyst versus IPMN. SPLEEN: Bony spleen measuring 13.3 cm ADRENALS: No significant abnormality is seen. KIDNEYS: End stage atrophic [place] kidneys. Apparently atrophic end-stage transplant kidney in the le ft lower quadrant. Right lower quadrant transplant kidney with surrounding fat stranding and reactive fluid, nonspecific. No hydroureter or hydronephrosis of the right lower quadrant transplant kidney. Suspected peripheral cortical cystic changes of the right lower quadrant transplant kidney, suboptima lly assessed by this nonenhanced CT scan. FREE AIR: No free air is visualized RETROPERITONEAL ADENOPATHY: Subcentimeter retroperitoneal lymph nodes. REPRODUCTIVE ORGANS: No significant abnormality is seen URINARY BLADDER: Anastomosis seen along the left lateral aspect of the urinary bladder, stable. PELVIC ADENOPATHY: No pathology enlarged pelvic lymph nodes. OSSEOUS STRUCTURES: No aggressive bone lesion. BOWEL: Unremarkable stomach and duodenum. Anterior abdominal wall small wide neck hernia containing small bowel loops. No evidence of small bowel obstruction. Scattered uncomplicated colonic diverticul osis with fecal loading of the colon. Normal appendix. OTHER: Extensive arterial atherosclerotic calcifications. 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 No sizable ascites. IMPRESSION: Right lower quadrant transplant kidney demonstrating suspected peripheral cortical cystic changes wit h perinephric fat stranding and reactive fluid, nonspecific. Underlying acute inflammatory or infecti ous process cannot be excluded. No hydroureter or hydronephrosis. Atrophic other visualized kidneys. Other findings as described above.
== END | disposition home or self-care (01) ==
LOC: RADCTMAIN 09:38
PROVIDERS: ATTEND Internal Medicine
DX: N28.1 Cyst of kidney, acquired (principal); N26.1 Atrophy of kidney (terminal); Z94.0 Kidney transplant status
CPT/HCPCS: 74176

== ENCOUNTER 2022-02-09 11:40 | Inpatient (IN) | payer MEDICARE ==
--- NOTE | 2022-02-09 12:42 | ED ---
General Adult HPI - General Chief complaint: Urogenital Stated complaint: male Time Seen by Provider: 02/09/22 12:04 Source: patient, family Mode of arrival: ambulatory Limitations: no limitations - History of Present Illness Initial comments: Dictation was produced using iContact dictation software. please excuse any grammatical, word or spelling errors. Chief Complaint: 56-year-old male with multiple comorbidities presents to the ER for scrotal and penile swelling History of Present Illness: Patient is a 56-year-old male presents to the emergency department for 2 days of penile scrotal swelling. Patient states that he noticed it 2 days ago. He woke up with scrotal swelling. He saw the urologist Dr. chung 2 days ago Flomax. States that he does not feel that the Flomax helped. He does complain of dysuria. Denies any fever chills or night sweats. States that the area is painful. Denies any feelings of urinary ret ention. Denies any shortness of breath or leg swelling. Patient has history of multiple organ transplants. His main nephrologists is out of [place]. He does take multiple immunosuppressive agents. The ROS documented in this emergency department record has been reviewed and confirmed by me. Those systems with pertinent positive or negative responses have been documented in the HPI. All other systems are other negative and/or noncontributory. PHYSICAL EXAM: General Impression: Alert and oriented x3, not in acute distress HEENT: Normocephalic atraumatic, extra-ocular movements intact, pupils equal and reactive to light bilaterally, mucous membranes moist. Cardiovascular: Heart regular rate and rhythm Chest: Able to complete full sentences, no retractions, no tachypnea Abdomen: abdomen soft, non-tender, non-distended, no organomegaly Musculoskeletal: Pulses present and equal in all extremities, no peripheral edema Motor: no focal deficits noted Neurological: CN II-XII grossly intact, no focal motor or sensory deficits noted Skin: Intact with no visualized rashes Psych: Normal affect and mood : Nonindurated swelling to the penile shaft and scrotum. There does appear to be some erythema at the inferior portion of the scrotum. ED course: 56-year-old male presents to the emergency department for painful swelling of the scrotum and penis. Also complaining of dysuria. Patient has multiple comorbidities. Takes multiple immunosuppressive medications for renal and pancreatic transplant. Signs upon arrival are within acceptable limits. Scrotal exam concerning for cellulitis given erythema and rapidly progressive symptoms. Return evaluation obtained. Mild leukocytosis. 0.6. Hemoglobin stable at 13.1. Metabolic panel shows mild acidosis with bicarb of 18. Elevated renal markers which appear to be around his baseline. Patient has history of waxing and waning renal markers. Urinalysis is negative for infection. Scrotal ultrasound shows normal testicles. There does appear to be mild varicoceles noted incidentally. Radiologist made comment of possible cellulitis. Given that patient has erythema and rapidly progressing scrotal edema and penile swelling there is concern of scrotal cellulitis. Given patient's medical history he is high-risk for infection. Patient be admitted with consultation to infectious disease and neurology. Patient started antibiotics for concerns of possible early scrotal cellulitis. - Related Data Home Medications Medication Instructions Recorded Confirmed Pravastatin Sodium [Pravachol] 20 mg PO MOTUTHSA 11/23/13 11/23/20 Sodium Bicarbonate Tab 1,300 mg PO BID 11/23/13 11/23/20 Lansoprazole 30 mg PO DAILY 07/14/18 11/23/20 Apixaban [Eliquis] 5 mg PO BID 09/18/18 11/23/20 Tamsulosin [Flomax] 0.4 mg PO BID 09/18/18 11/23/20 Ferrous Sulfate [Iron (65 MG 325 mg PO BID 12/17/18 11/23/20 Elemental)] Montelukast [Singulair] 10 mg PO HS 12/17/18 11/23/20 allopurinoL [Zyloprim] 200 mg PO DAILY 12/17/18 11/23/20 calcitrioL [Rocaltrol] 0.5 mcg PO MOWEFR 12/17/18 11/23/20 predniSONE 5 mg PO DAILY 03/09/19 11/23/20 Labetalol HCl 400 mg PO BID 11/15/19 11/23/20 amLODIPine [Norvasc] 5 mg PO BID 11/15/19 11/23/20 Tacrolimus [Prograf] 0.5 mg PO HS 03/03/20 11/23/20 calcitrioL [Rocaltrol] 0.25 mcg PO SUTUTHSA 03/03/20 11/23/20 Ergocalciferol [Vitamin D2 50,000 unit PO WE 05/02/20 11/23/20 (DRISDOL)] Tacrolimus [Prograf] 1 mg PO DAILY 05/02/20 11/23/20 Niacinamide 500 mg PO BID 10/23/20 11/23/20 Spironolactone [Aldactone] 25 mg PO HS 11/23/20 11/23/20 Previous Rx's Medication Instructions Recorded hydrALAZINE HCL [Apresoline] 50 mg PO TID #90 tab 11/17/19 Albuterol Sulfate [Proair Hfa] 1 - 2 puff INHALATION Q6HR PRN #1 10/25/20 inhaler Cephalexin [Keflex] 500 mg PO Q8HR #9 cap 11/28/20 Phenazopyridine HCl [Pyridium] 100 mg PO TID 3 Days #9 tab 11/28/20 Allergies Allergy/AdvReac Type Severity Reaction Status Date / Time Iodine and Iodide Containing AdvReac HX OF Verified 02/09/22 11:59 Produc KIDNEY DISEASE Review of Systems ROS Statement: Those systems with pertinent positive or pertinent negative responses have been documented in the HPI. ROS Other: All systems not noted in ROS Statement are negative. Past Medical History Past Medical History: Cancer, Heart Failure, COPD, Diabetes Mellitus, Hyperlipidemia, Hypertension, Osteoarthritis (OA), Prostate Disorder, Renal Disease, Sleep Apnea/CPAP/BIPAP Additional Past Medical History / Comment(s): ARDS, hx of DM was tx for dm from age 9- 35, had pancreas transplant), uses cpap machine, basal/squamous cell skin cancer, cancer on neck had surg & radiation on neck 02/2020. hx rt elbow broken-(sx), charcots foot, pancreatitis, bladder leakage History of Any Multi-Drug Resistant Organisms: None Reported Past Surgical History: Hernia Repair, Joint Replacement Additional Past Surgical History / Comment(s): 2 kidney and 1 pancreas transplant, L knee replacment, rt elbow sx has 7 screws,cataracts removed-lens implants, laser eye sx for retinopathy, fernando foot sx(rt foot bone gravt and lt foot bone shaved), skin cancer removed on his head, Past Anesthesia/Blood Transfusion Reactions: No Reported Reaction Past Psychological History: No Psychological Hx Reported Smoking Status: Never smoker Past Alcohol Use History: None Reported Past Drug Use History: None Reported - Past Family History Mother Family Medical History: Cancer, Diabetes Mellitus Additional Family Medical History / Comment(s): liver cancer Father Family Medical History: CVA/TIA Additional Family Medical History / Comment(s): was smoker had stroke in his 30's General Exam Limitations: no limitations Course Vital Signs 02/09/22 11:55 Temperature 97.7 F Pulse Rate 68 Respiratory 20 Rate Blood Pressure 112/64 O2 Sat by Pulse 98 Oximetry Medical Decision Making - Lab Data Result diagrams: 02/09/22 13:12 02/09/22 13:12 Lab Results 02/09/22 02/09/22 02/09/22 Range/Units 13:12 13:12 13:12 WBC 12.6 H (3.8-10.6) k/uL RBC 4.08 L (4.30-5.90) m/uL Hgb 13.1 (13.0-17.5) gm/dL Hct 37.2 L (39.0-53.0) % MCV 91.2 (80.0-100.0) fL MCH 32.1 (25.0-35.0) pg MCHC 35.2 (31.0-37.0) g/dL RDW 14.6 (11.5-15.5) % Plt Count 234 (150-450) k/uL MPV 7.5 Neutrophils % 86 % Lymphocytes % 4 % Monocytes % 7 % Eosinophils % 1 % Basophils % 0 % Neutrophils # 10.9 H (1.3-7.7) k/uL Lymphocytes # 0.5 L (1.0-4.8) k/uL Monocytes # 0.9 (0-1.0) k/uL Eosinophils # 0.1 (0-0.7) k/uL Basophils # 0.0 (0-0.2) k/uL Sodium 134 L (137-145) mmol/L Potassium 4.1 (3.5-5.1) mmol/L Chloride 102 (98-107) mmol/L Carbon Dioxide 18 L (22-30) mmol/L Anion Gap 14 mmol/L BUN 50 H (9-20) mg/dL Creatinine 2.36 H (0.66-1.25) mg/dL Est GFR (CKD-EPI)AfAm 34 (>60 ml/min/1.73 sqM) Est GFR (CKD-EPI)NonAf 29 (>60 ml/min/1.73 sqM) Glucose 111 H (74-99) mg/dL Calcium 9.7 (8.4-10.2) mg/dL Total Bilirubin 0.8 (0.2-1.3) mg/dL AST 25 (17-59) U/L ALT 22 (4-49) U/L Alkaline Phosphatase 127 H (38-126) U/L Total Protein 6.8 (6.3-8.2) g/dL Albumin 4.3 (3.5-5.0) g/dL Urine Color Yellow Urine Appearance Clear (Clear) Urine pH 6.5 (5.0-8.0) Ur Specific [place] 1.011 (1.001-1.035) Urine Protein Trace H (Negative) Urine Glucose (UA) Negative (Negative) Urine Ketones Negative (Negative) Urine Blood Negative (Negative) Urine Nitrite Negative (Negative) Urine Bilirubin Negative (Negative) Urine Urobilinogen <2.0 (<2.0) mg/dL Ur Leukocyte Esterase Large H (Negative) Urine RBC 1 (0-5) /hpf Urine WBC 4 (0-5) /hpf Ur Squamous Epith Cells <1 (0-4) /hpf Urine Mucus Rare H (None) /hpf Disposition Clinical Impression: Cellulitis of scrotum Disposition: ADMITTED IP TO THIS HOSP Condition: Fair Referrals: Sujit Cartagena MD [Primary Care Provider] - 1-2 days Decision Time: 15:10
[2022-02-09 13:26] LABS: Basophils % (A) 0 %; Eosinophils # (A) 0.1 k/uL (0-0.7); Eosinophils % (A) 1 %; HCT 37.2 % (39.0-53.0); HGB 13.1 gm/dL (13.0-17.5); Lymphocytes # (A) 0.5 k/uL (1.0-4.8); Lymphocytes % (A) 4 %; MCH 32.1 pg (25.0-35.0); MCHC 35.2 g/dL (31.0-37.0); MCV 91.2 fL (80.0-100.0); Mean Platelet Volume 7.5; Monocytes # (A) 0.9 k/uL (0-1.0); Monocytes % (A) 7 %; Neutrophils # (A) 10.9 k/uL (1.3-7.7); Neutrophils % (A) 86 %; Platelet Count 234 k/uL (150-450); RBC 4.08 m/uL (4.30-5.90); RDW 14.6 % (11.5-15.5); WBC 12.6 k/uL (3.8-10.6)
[2022-02-09 13:33] LABS: Appearance,Urine Clear (Clear); Bilirubin,Urine Negative (Negative); Blood,Urine Negative (Negative); Color,Urine Yellow; Glucose,Urine (UA) Negative (Negative); Ketones,Urine Negative (Negative); Leukocyte Esterase,Urine Large (Negative); Mucus,Urine Rare /hpf; Nitrite,Urine Negative (Negative); PH, Urine 6.5 (5.0-8.0); Protein,Urine Trace (Negative); RBC,Urine 1 /hpf (0-5); Specific Gravity,Urine 1.011 (1.001-1.035); Squamous Epithelial Cell,Urine <1 /hpf (0-4); Urobilinogen,Urine <2.0 mg/dL (<2.0); WBC,Urine 4 /hpf (0-5)
[2022-02-09 13:36] LABS: Albumin 4.3 g/dL (3.5-5.0); Calcium 9.7 mg/dL (8.4-10.2); Potassium 4.1 mmol/L (3.5-5.1); Total Bilirubin 0.8 mg/dL (0.2-1.3); Total Protein 6.8 g/dL (6.3-8.2)
[2022-02-09] MEDS ORDERED: MORPHINE SULFATE 4 MG/ML SYRINGE IV STA (14:25)
--- NOTE | 2022-02-09 14:40 | US ---
EXAMINATION TYPE: US scrotum with doppler. Grayscale and color Doppler Duplex imaging performed of luis daly scrotum. DATE OF EXAM: 02/09/2022 COMPARISON: NONE CLINICAL HISTORY: scrotal swelling. Testicular pain and swelling x 2 days EXAM MEASUREMENTS: TESTICLES: Right Testicle: 3.4 x 1.6 x 2.5 cm Left Testicle: 3.5 x 2.2 x 2.0 cm EPIDIDYMIS HEAD: Right Epididymis: 0.9 cm Left Epididymis: 0.8 cm Doppler performed to assess for testicular vascularity; bilateral color flow and waveforms are seen. There is no evidence of testicular torsion. Presence of hydroceles: No Presence of varicoceles: Yes Scrotal wall thickening seen Testicular echotexture shows punctate echogenic foci within the right testis and left testis. IMPRESSION: No evident testicular torsion. There is scrotal edema, correlate for cellulitis. Varicoceles noted incidentally. 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
[2022-02-09] MEDS ORDERED: VANCOMYCIN IV PER PHARMACY 1 EACH MISC MISCELLANE PRN (15:05)
[2022-02-09] MEDS ORDERED: ACETAMINOPHEN TAB 325 MG TAB PO PRN (15:06)
[2022-02-09] MEDS ORDERED: NALOXONE 0.4 MG/ML 1 ML VIAL IV PRN (15:06)
[2022-02-09] MEDS ORDERED: VANCOMYCIN 1,250 MG in SODIUM CHLORIDE 0.9% 250 ML IVPB ONE (15:30)
[2022-02-09] MEDS: SODIUM CHLORIDE 0.9% 1,000 ML IV SCH (15:58)
[2022-02-09] MEDS: PIPERACILLIN-TAZOBACTAM 3.375 GM in SODIUM CHLORIDE 0.9% 100 ML IVPB SCH ×2 (16:47→23:15)
[2022-02-09] MEDS: MORPHINE SULFATE 4 MG/ML SYRINGE IV PRN ×2 (18:33→23:04)
[2022-02-09] MEDS ORDERED: ALBUTEROL HFA INHALER INHALATION PRN (19:38)
[2022-02-09] MEDS ORDERED: ALBUTEROL NEBULIZED 2.5 MG/3 ML INHALATION PRN (19:44)
[2022-02-09] MEDS: hydrALAZINE HCL 50 MG TAB PO SCH (20:15)
[2022-02-09] MEDS: LABETALOL 200 MG TAB PO SCH (20:15)
[2022-02-09] MEDS: APIXABAN 2.5 MG TABLET PO SCH (20:15)
[2022-02-09] MEDS: amLODIPine 5 MG TAB PO SCH (20:15)
[2022-02-09] MEDS: TAMSULOSIN 0.4 MG CAP.ER.24H PO SCH (20:16)
[2022-02-09] MEDS: TACROLIMUS 0.5 MG CAP PO SCH (20:16)
[2022-02-09] MEDS: SODIUM BICARBONATE TAB 650 MG TAB PO SCH (20:16)
[2022-02-09] MEDS: MONTELUKAST 10 MG TAB PO SCH (20:16)
[2022-02-09] MEDS ORDERED: FAMOTIDINE 20 MG TAB PO SCH (21:00)
--- NOTE | 2022-02-09 22:09 | P.CONS ---
History of Present Illness - Reason for Consult Consult date: 02/09/22 Scrotal cellulitis Requesting physician: Jarocho Haro - Chief Complaint scrotal swelling and redness x 2 days - History of Present Illness Patient is a 56-year-old male with a past medical history significant for pancreatic and kidney transplant on immunosuppressive medication presenting to the hospital with the scrotal swelling and redness that apparently started Saturday that is 2 days before presentation to the hospital patient denies any history of any trauma he did mention he did have rapid progression of swelling and redness to scrotal area has noticed to the penis with the swelling patient denies having any purulent drainage from the penis and denies having any wound or drainage from the scrotal area patient describing the pain to the scrotal area that has been going on for the last 2 to 3 days more of a dull aching to sharp intensity is about 7 out of 10 no radiation with associated swelling and redness with May the patient was evaluated by ER physician on arrival to the ER the patient did have an ultrasound of the scrotal area which did show some diffuse cellulitis but no evidence of any drainable abscess patient did have a white count of 12.6 with a left shift creatinine 2.36 urine large leukocyte esterase only 4 WBC patient was started on vancomycin and Zosyn has been admitted to hospital infectious disease was consulted for further management of antibiotic therapy Review of Systems Positive point has been mentioned in the HPI rest of the systems are negative Past Medical History Past Medical History: Cancer, Heart Failure, COPD, Diabetes Mellitus, Hyperlipidemia, Hypertension, Osteoarthritis (OA), Prostate Disorder, Renal Disease, Sleep Apnea/CPAP/BIPAP Additional Past Medical History / Comment(s): ARDS, hx of DM was tx for dm from age 9- 35, had pancreas transplant), uses cpap machine, basal/squamous cell skin cancer, cancer on neck had surg & radiation on neck 02/2020. hx rt elbow broken-(sx), charcots foot, pancreatitis, bladder leakage History of Any Multi-Drug Resistant Organisms: None Reported Past Surgical History: Hernia Repair, Joint Replacement Additional Past Surgical History / Comment(s): 2 kidney and 1 pancreas transplant, L knee replacment, rt elbow sx has 7 screws,cataracts removed-lens implants, laser eye sx for retinopathy, fernando foot sx(rt foot bone gravt and lt foot bone shaved), skin cancer removed on his head, Past Anesthesia/Blood Transfusion Reactions: No Reported Reaction Past Psychological History: No Psychological Hx Reported Smoking Status: Never smoker Past Alcohol Use History: None Reported Past Drug Use History: None Reported - Past Family History Mother Family Medical History: Cancer, Diabetes Mellitus Additional Family Medical History / Comment(s): liver cancer Father Family Medical History: CVA/TIA Additional Family Medical History / Comment(s): was smoker had stroke in his 30's Medications and Allergies Home Medications Medication Instructions Recorded Confirmed Type Pravastatin Sodium [Pravachol] 20 mg PO HS 11/23/13 02/09/22 History Sodium Bicarbonate Tab 1,300 mg PO BID 11/23/13 02/09/22 History Apixaban [Eliquis] 2.5 mg PO BID 09/18/18 02/09/22 History Tamsulosin [Flomax] 0.4 mg PO BID 09/18/18 02/09/22 History Ferrous Sulfate [Iron (65 MG 325 mg PO DAILY 12/17/18 02/09/22 History Elemental)] Montelukast [Singulair] 10 mg PO HS 12/17/18 02/09/22 History allopurinoL [Zyloprim] 100 mg PO DAILY 12/17/18 02/09/22 History calcitrioL [Rocaltrol] 0.5 mcg PO MOWEFR 12/17/18 02/09/22 History predniSONE 5 mg PO DAILY 03/09/19 02/09/22 History Labetalol HCl 400 mg PO BID 11/15/19 02/09/22 History amLODIPine [Norvasc] 5 mg PO BID 11/15/19 02/09/22 History Tacrolimus [Prograf] 0.5 mg PO HS 03/03/20 02/09/22 History calcitrioL [Rocaltrol] 0.25 mcg PO SUTUTHSA 03/03/20 02/09/22 History Ergocalciferol [Vitamin D2 50,000 unit PO WE 05/02/20 02/09/22 History (DRISDOL)] Tacrolimus [Prograf] 1 mg PO DAILY 05/02/20 02/09/22 History Niacinamide 500 mg PO BID-W/MEALS 10/23/20 02/09/22 History Spironolactone [Aldactone] 12.5 mg PO DAILY 11/23/20 02/09/22 History Acetaminophen Tab [Tylenol Tab] 1,000 mg PO Q6HR PRN 02/09/22 02/09/22 History Albuterol Nebulized [Ventolin 2.5 mg INHALATION RT-Q6H PRN 02/09/22 02/09/22 History Nebulized] Albuterol Sulfate [Proair Hfa] 1 - 2 puff INHALATION RT-Q6H PRN 02/09/22 02/09/22 History Famotidine 20 mg PO DAILY 02/09/22 02/09/22 History Magnesium Oxide 400 mg PO DAILY 02/09/22 02/09/22 History Torsemide [Demadex] 10 mg PO DAILY 02/09/22 02/09/22 History hydrALAZINE HCL [Apresoline] 50 mg PO BID 02/09/22 02/09/22 History Allergies Allergy/AdvReac Type Severity Reaction Status Date / Time Iodine and Iodide Containing AdvReac HX OF Verified 02/09/22 11:59 Produc KIDNEY DISEASE Physical Exam Vitals: Vital Signs Temp Pulse Resp BP Pulse Ox 02/09/22 16:53 78 18 142/77 96 02/09/22 11:55 97.7 F 68 20 112/64 98 Intake and Output 02/09/22 02/09/22 02/09/22 06:59 14:59 22:59 Other: Weight 68.039 kg GENERAL DESCRIPTION: Middle-aged male lying in bed, no distress. No tachypnea or accessory muscle of respiration use. HEENT: Shows Pallor , no scleral icterus. Oral mucous membrane is dry. No pharyngeal erythema or thrush NECK: Trachea central, no thyromegaly. LUNGS: Unlabored breathing. Clear to auscultation anteriorly. No wheeze or crackle. HEART: S1, S2, regular rate and rhythm. No loud murmur ABDOMEN: Soft, no tenderness , guarding or rigidity, no organomegaly EXTREMITIES: No edema of feet. SKIN: No rash, no masses palpable. NEUROLOGICAL: The patient is awake, alert, oriented x3, mood and affect normal. Results CBC & Chem 7: 02/09/22 13:12 02/09/22 13:12 Labs: Abnormal Lab Results - Last 24 Hours (Table) 02/09/22 02/09/22 02/09/22 Range/Units 13:12 13:12 13:12 WBC 12.6 H (3.8-10.6) k/uL RBC 4.08 L (4.30-5.90) m/uL Hct 37.2 L (39.0-53.0) % Neutrophils # 10.9 H (1.3-7.7) k/uL Lymphocytes # 0.5 L (1.0-4.8) k/uL Sodium 134 L (137-145) mmol/L Carbon Dioxide 18 L (22-30) mmol/L BUN 50 H (9-20) mg/dL Creatinine 2.36 H (0.66-1.25) mg/dL Glucose 111 H (74-99) mg/dL Alkaline Phosphatase 127 H (38-126) U/L Urine Protein Trace H (Negative) Ur Leukocyte Esterase Large H (Negative) Urine Mucus Rare H (None) /hpf Assessment and Plan Plan: 1patient presented to hospital with scrotal swelling and redness that been going on for 2 days ultrasound of the scrotum shows possible cellulitis no evidence of any drainable abscess patient currently with no evidence of any fluctuation drainage and will need to cover for gram-positive skin tayler to the likely pathogen and less likely gram-negative 2-patient with the history of pancreas and kidney transplant on immunosuppressive medication 3-borderline kidney function high risk of nephrotoxicity from vancomycin 4-continue with the Zosyn however discontinue vancomycin and will start the patient on daptomycin while awaiting further work-up to be completed 5-nursing staff has been instructed if the area started to drain to obtain cultures We will follow on clinical condition and cultures to further adjust medication if needed Thank you for this consultation will follow this patient along with you
--- NOTE | 2022-02-10 01:34 | HP ---
HISTORY AND PHYSICAL CHIEF COMPLAINT: Pain and swelling of the scrotum. HISTORY OF PRESENT ILLNESS: This 56-year-old gentleman with a past medical history of renal transplantation, CHF, COPD, multiple medical issues, being followed by . The patient has noted pain and swelling of the scrotum which is increasing in intensity. Because of lack of improvement, the patient came to [facility] and admitted for further evaluation and treatment. The patient had a scrotal ultrasound which I reviewed personally and reported as no torsion, varicoceles only. PAST MEDICAL HISTORY: Reviewed include hypertension, hyperlipidemia, renal and pancreas transplantation. HOME MEDICATIONS: Again reviewed include prednisone dose, and rest of medications reviewed. ALLERGIES: Iodine. FAMILY HISTORY: History of cancer, diabetes, and liver cancer. SOCIAL HISTORY: No history of smoking, no alcohol intake. REVIEW OF SYSTEM: A 14-point review is negative except as mentioned earlier. PHYSICAL EXAMINATION: VITAL SIGNS: Pulse is 68, blood pressure NT, respirations 20. HEENT: Conjunctivae normal. Oral mucosa moist. NECK: No jugular venous distention. No carotid bruit. CARDIOVASCULAR: S1, S2 muffled. RESPIRATIONS: N at the bases. No rhonchi, no crackles. ABDOMEN: Soft, obese, nontender. No masses palpable status post healed surgery. : Scrotum, bilateral scrotal edema, cellulitis, erythema, and tenderness. No hydrocele present. Some minimal penile edema also present. LEGS: No edema, no swelling. NERVOUS SYSTEM: No focal deficits. SKIN: As mentioned. JOINTS: No active deforming arthropathy. LABS: WBC 12, rest of the labs noted. ASSESSMENT: 1. Scrotal cellulitis. 2. History of kidney pancreas transplantation. 3. exacerbation of chronic obstructive pulmonary disease. 4. Diabetes. 5. Hypertension. 6. Hyperlipidemia. 7. Multiple medical issues. RECOMMENDATIONS: This is a 56-year-old gentleman who presented with multiple complex medical issues, we will monitor the patient closely. I would recommend broad-spectrum IV antibiotics, obtain cultures and infectious disease evaluation. Recommend Zosyn and vancomycin. I would also recommend nephrology evaluation also. Prognosis guarded because of multiple complex medical issues. Home medication will be continued once they are confirmed by the ER pharmacist. MMODL / IJN: [id number] / [facility]
[2022-02-10 05:05] LABS: African American GFR (CKD) 36 (>60 ml/min/1.73 sqM); Anion Gap 15 mmol/L; Blood Urea Nitrogen 45 mg/dL (9-20); Calcium 9.5 mg/dL (8.4-10.2); Carbon Dioxide 17 mmol/L (22-30); Chloride 103 mmol/L (98-107); Glucose 93 mg/dL (74-99); Non-African American GFR(CKD) 31 (>60 ml/min/1.73 sqM); Potassium 4.2 mmol/L (3.5-5.1); Sodium 135 mmol/L (137-145)
[2022-02-10] MEDS: PIPERACILLIN-TAZOBACTAM 3.375 GM in SODIUM CHLORIDE 0.9% 100 ML IVPB SCH ×2 (07:58→16:07)
[2022-02-10] MEDS: predniSONE 5 MG TAB PO SCH (07:59)
[2022-02-10] MEDS: hydrALAZINE HCL 50 MG TAB PO SCH ×2 (07:59→20:03)
[2022-02-10] MEDS: allopurinoL 100 MG TAB PO SCH (07:59)
[2022-02-10] MEDS: TAMSULOSIN 0.4 MG CAP.ER.24H PO SCH ×2 (07:59→20:04)
[2022-02-10] MEDS: FERROUS SULFATE 325 MG TAB PO SCH (08:00)
[2022-02-10] MEDS: LABETALOL 200 MG TAB PO SCH ×2 (08:00→20:03)
[2022-02-10] MEDS: amLODIPine 5 MG TAB PO SCH ×2 (08:00→20:02)
[2022-02-10] MEDS: TACROLIMUS 1 MG CAP PO SCH (08:01)
[2022-02-10] MEDS: SODIUM BICARBONATE TAB 650 MG TAB PO SCH ×2 (08:01→20:04)
[2022-02-10] MEDS: APIXABAN 2.5 MG TABLET PO SCH ×2 (08:46→20:03)
[2022-02-10 09:21] LABS: Basophils # (A) 0.04 X 10*3/uL (0.00-0.10); Basophils % (A) 0.3 %; Eosinophils # (A) 0.06 X 10*3/uL (0.04-0.35); Eosinophils % (A) 0.5 %; HCT 33.5 % (39.6-50.0); HGB 11.6 g/dL (13.0-17.0); Immature Grans, Automated 0.5 %; Lymphocytes # (A) 0.79 X 10*3/uL (0.90-5.00); Lymphocytes % (A) 6.7 %; MCH 31.6 pg (27.0-32.0); MCHC 34.6 g/dL (32.0-37.0); MCV 91.3 fL (80.0-97.0); Mean Platelet Volume 8.8 fL (9.5-12.2); Monocytes # (A) 1.41 X 10*3/uL (0.20-1.00); NRBC Per 100 WBC 0 /100 WBCS (0.0-0.0); Neutrophils # (A) 9.36 X 10*3/uL (1.80-7.70); Platelet Count 173 X 10*3/uL (140-440); RBC 3.67 X 10*6/uL (4.40-5.60); RDW 14.2 % (11.5-14.5); WBC 11.72 X 10*3/uL (4.50-10.00)
[2022-02-10] MEDS ORDERED: VANCOMYCIN 1,250 MG in SODIUM CHLORIDE 0.9% 250 ML IVPB SCH (10:00)
--- NOTE | 2022-02-10 10:23 | P.GSCN ---
History of Present Illness History of present illness: This is a 56-year-old male that presented to the hospital with dysuria and scrotal swelling. He has history of kidney and pancreas transplant currently on immunosuppression. He was seen by me in the office on with a complaint of dysuria, and scrotal edema. At that time there was no evidence of erythema, and urinalysis was negative. His postvoid was at 300 mL but he was able to void spontaneously. He indicated yesterday he had progressively worsening scrotal swelling and some erythema. Subsequently presented to the ER. Since admission she's been started on IV antibiotics, this morning he indicated his significant improvement in the swelling and erythema. The Maxwell catheter was also placed in the ER for PVR > 300 mL. He denies any fevers, chills. He underwent a scrotal ultrasound which showed evidence of scrotal wall thickening Review of Systems - Constitutional Denies fever, Denies weight loss - EENT Ears, nose, mouth and throat: Denies dysphagia - Cardiovascular Denies chest pain, Denies shortness of breath - Respiratory Denies cough, Denies 7 - Gastrointestinal Reports as per HPI - Genitourinary Reports dysuria, Reports urinary retention - Integumentary Denies rash, Denies unusual bruising - Neurological Denies headaches, Denies syncope Past Medical History Past Medical History: Atrial Fibrillation, Cancer, Heart Failure, COPD, Diabetes Mellitus, Hyperlipidemia, Hypertension, Osteoarthritis (OA), Prostate Disorder, Renal Disease, Sleep Apnea/CPAP/BIPAP Additional Past Medical History / Comment(s): ARDS, hx of DM was tx for dm from age 9- 35, had pancreas transplant), uses cpap machine, basal/squamous cell skin cancer, cancer on neck had surg & radiation on neck 02/2020. hx rt elbow broken-(sx), charcots foot, pancreatitis, bladder leakage History of Any Multi-Drug Resistant Organisms: None Reported Past Surgical History: Hernia Repair, Joint Replacement Additional Past Surgical History / Comment(s): 2 kidney and 1 pancreas transplant, L knee replacment, rt elbow sx has 7 screws,cataracts removed-lens implants, laser eye sx for retinopathy, fernando foot sx(rt foot bone gravt and lt foot bone shaved), skin cancer removed on his head, Past Anesthesia/Blood Transfusion Reactions: No Reported Reaction Past Psychological History: No Psychological Hx Reported Smoking Status: Never smoker Past Alcohol Use History: None Reported Additional Past Alcohol Use History / Comment(s): chew tobacco occ. No alcohol in 1 1/2 years. Past Drug Use History: None Reported - Past Family History Mother Family Medical History: Cancer, Diabetes Mellitus Additional Family Medical History / Comment(s): liver cancer Father Family Medical History: CVA/TIA Additional Family Medical History / Comment(s): was smoker had stroke in his 30's Medications and Allergies Home Medications Medication Instructions Recorded Confirmed Type Pravastatin Sodium [Pravachol] 20 mg PO HS 11/23/13 02/09/22 History Sodium Bicarbonate Tab 1,300 mg PO BID 11/23/13 02/09/22 History Apixaban [Eliquis] 2.5 mg PO BID 09/18/18 02/09/22 History Tamsulosin [Flomax] 0.4 mg PO BID 09/18/18 02/09/22 History Ferrous Sulfate [Iron (65 MG 325 mg PO DAILY 12/17/18 02/09/22 History Elemental)] Montelukast [Singulair] 10 mg PO HS 12/17/18 02/09/22 History allopurinoL [Zyloprim] 100 mg PO DAILY 12/17/18 02/09/22 History calcitrioL [Rocaltrol] 0.5 mcg PO MOWEFR 12/17/18 02/09/22 History predniSONE 5 mg PO DAILY 03/09/19 02/09/22 History Labetalol HCl 400 mg PO BID 11/15/19 02/09/22 History amLODIPine [Norvasc] 5 mg PO BID 11/15/19 02/09/22 History Tacrolimus [Prograf] 0.5 mg PO HS 03/03/20 02/09/22 History calcitrioL [Rocaltrol] 0.25 mcg PO SUTUTHSA 03/03/20 02/09/22 History Ergocalciferol [Vitamin D2 50,000 unit PO WE 05/02/20 02/09/22 History (DRISDOL)] Tacrolimus [Prograf] 1 mg PO DAILY 05/02/20 02/09/22 History Niacinamide 500 mg PO BID-W/MEALS 10/23/20 02/09/22 History Spironolactone [Aldactone] 12.5 mg PO DAILY 11/23/20 02/09/22 History Acetaminophen Tab [Tylenol Tab] 1,000 mg PO Q6HR PRN 02/09/22 02/09/22 History Albuterol Nebulized [Ventolin 2.5 mg INHALATION RT-Q6H PRN 02/09/22 02/09/22 Hi story Nebulized] Albuterol Sulfate [Proair Hfa] 1 - 2 puff INHALATION RT-Q6H PRN 02/09/22 History Famotidine 20 mg PO DAILY 02/09/22 02/09/22 History Magnesium Oxide 400 mg PO DAILY 02/09/22 02/09/22 History Torsemide [Demadex] 10 mg PO DAILY 02/09/22 02/09/22 History hydrALAZINE HCL [Apresoline] 50 mg PO BID 02/09/22 02/09/22 History Allergies Allergy/AdvReac Type Severity Reaction Status Date / Time Iodine and Iodide Containing AdvReac HX OF Verified 02/09/22 11:59 Produc KIDNEY DISEASE Surgical - Exam Vital Signs Temp Pulse Resp BP Pulse Ox 97.7 F 68 20 112/64 98 02/09/22 11:55 02/09/22 11:55 02/09/22 11:55 02/09/22 11:55 02/09/22 11:55 - General no distress, no pain - Eyes normal ocular movement, no pale - ENT normal nares, normal mucosa - Respiratory normal expansion, normal respiratory effort - Abdomen Abdomen: soft, non tender - Genitourinary Scrotal and penile edema, improved compared to . Erythema along the median raphae of the scrotum, minimal tenderness. Both testicles palpable nontender. No evidence of fluctuance or induration Results - Labs 02/10/22 04:06 02/10/22 04:06 Abnormal Lab Results - Last 24 Hours (Table) 02/09/22 02/09/22 02/09/22 Range/Units 13:12 13:12 13:12 WBC 12.6 H (3.8-10.6) k/uL RBC 4.08 L (4.30-5.90) m/uL Hgb (13.0-17.0) g/dL Hct 37.2 L (39.0-53.0) % MPV (9.5-12.2) fL Immature Gran # (0.00-0.04) X 10*3/uL Neutrophils # 10.9 H (1.3-7.7) k/uL Lymphocytes # 0.5 L (1.0-4.8) k/uL Monocytes # (0.20-1.00) X 10*3/uL Sodium 134 L (137-145) mmol/L Carbon Dioxide 18 L (22-30) mmol/L BUN 50 H (9-20) mg/dL Creatinine 2.36 H (0.66-1.25) mg/dL Glucose 111 H (74-99) mg/dL Alkaline Phosphatase 127 H (38-126) U/L Urine Protein Trace H (Negative) Ur Leukocyte Esterase Large H (Negative) Urine Mucus Rare H (None) /hpf 02/10/22 02/10/22 Range/Units 04:06 04:06 WBC 11.72 H (3.8-10.6) k/uL RBC 3.67 L (4.30-5.90) m/uL Hgb 11.6 L (13.0-17.0) g/dL Hct 33.5 L (39.0-53.0) % MPV 8.8 L (9.5-12.2) fL Immature Gran # 0.06 H (0.00-0.04) X 10*3/uL Neutrophils # 9.36 H (1.3-7.7) k/uL Lymphocytes # 0.79 L (1.0-4.8) k/uL Monocytes # 1.41 H (0.20-1.00) X 10*3/uL Sodium 135 L (137-145) mmol/L Carbon Dioxide 17 L (22-30) mmol/L BUN 45 H (9-20) mg/dL Creatinine 2.25 H (0.66-1.25) mg/dL Glucose (74-99) mg/dL Alkaline Phosphatase (38-126) U/L Urine Protein (Negative) Ur Leukocyte Esterase (Negative) Urine Mucus (None) /hpf Microbiology - Last 24 Hours (Table) 02/09/22 19:52 Wound Culture - Preliminary Groin Diabetes panel 02/09/22 02/10/22 Range/Units 13:12 04:06 Sodium 134 L 135 L (137-145) mmol/L Potassium 4.1 4.2 (3.5-5.1) mmol/L Chloride 102 103 (98-107) mmol/L Carbon Dioxide 18 L 17 L (22-30) mmol/L BUN 50 H 45 H (9-20) mg/dL Creatinine 2.36 H 2.25 H (0.66-1.25) mg/dL Glucose 111 H 93 (74-99) mg/dL Calcium 9.7 9.5 (8.4-10.2) mg/dL AST 25 (17-59) U/L ALT 22 (4-49) U/L Alkaline Phosphatase 127 H (38-126) U/L Total Protein 6.8 (6.3-8.2) g/dL Albumin 4.3 (3.5-5.0) g/dL Calcium panel 02/09/22 02/10/22 Range/Units 13:12 04:06 Calcium 9.7 9.5 (8.4-10.2) mg/dL Albumin 4.3 (3.5-5.0) g/dL Pituitary panel 02/09/22 02/10/22 Range/Units 13:12 04:06 Sodium 134 L 135 L (137-145) mmol/L Potassium 4.1 4.2 (3.5-5.1) mmol/L Chloride 102 103 (98-107) mmol/L Carbon Dioxide 18 L 17 L (22-30) mmol/L BUN 50 H 45 H (9-20) mg/dL Creatinine 2.36 H 2.25 H (0.66-1.25) mg/dL Glucose 111 H 93 (74-99) mg/dL Calcium 9.7 9.5 (8.4-10.2) mg/dL Adrenal panel 02/09/22 02/10/22 Range/Units 13:12 04:06 Sodium 134 L 135 L (137-145) mmol/L Potassium 4.1 4.2 (3.5-5.1) mmol/L Chloride 102 103 (98-107) mmol/L Carbon Dioxide 18 L 17 L (22-30) mmol/L BUN 50 H 45 H (9-20) mg/dL Creatinine 2.36 H 2.25 H (0.66-1.25) mg/dL Glucose 111 H 93 (74-99) mg/dL Calcium 9.7 9.5 (8.4-10.2) mg/dL Total Bilirubin 0.8 (0.2-1.3) mg/dL AST 25 (17-59) U/L ALT 22 (4-49) U/L Alkaline Phosphatase 127 H (38-126) U/L Total Protein 6.8 (6.3-8.2) g/dL Albumin 4.3 (3.5-5.0) g/dL Assessment and Plan Assessment: 56-year-old male with history of kidney and pancreas transplant on immunosuppression. admitted to the hospital with dysuria and scrotal edema, there is concern for cellulitis. Significant improvement compared to yesterday. A Maxwell catheter was also placed for urinary retention. On evaluation minimal erythema along the midline scrotum, no evidence of Armando's gangrene or scrotal abscess. -Recommend continuing IVantibiotics for 1 more day, if continues to improve then ok for discharge from urology standpoint -Maxwell catheter can be removed prior to discharge, please obtain a postvoid residual if less than 300 mL no further intervention is needed
[2022-02-10] MEDS ORDERED: SODIUM BICARB 8.4% 50 ML SYR (1 MEQ/ML) IV STA (10:26)
[2022-02-10] MEDS ORDERED: hydrALAZINE HCL 20 MG/ML 1 ML VIAL IVP PRN (10:27)
--- NOTE | 2022-02-10 10:33 | P.NPCON ---
History of Present Illness - Reason for Consult acute renal failure, chronic renal failure - History of Present Illness Reason for consultation: Acute kidney injury on chronic kidney disease and renal transplant management History of present illness: Patient is a 56-year-old male seen in consultation for acute kidney injury on chronic kidney disease and renal transplant management. Patient has chronic kidney disease stage IIIB with baseline creatinine near 1.5-1.6 but recently renal function seems to have progressed. Creatinine this admission was 2.36 and is 2.25 today. Patient has a donor pancreatic transplant and also a living related donor kidney transplant. This is a second kidney transplant. He is maintained on Prograf and prednisone. He was taken off CellCept when he developed squamous cell cancer. Patient states he was taking torsemide at home and was recently increased by his transplant table maker. He was also started on Flomax by his urologist. Patient states he came to the hospital due to penile and scrotal swelling. He says the swelling has gone down. He denies chest pain or shortness of breath. No vomiting or diarrhea. No edema. No hematuria. No fever or chills. Patient states he's been doing pulmonary rehab outpatient. He denies use of nonsteroidals. Vital signs are stable. General: The patient appeared well nourished and normally developed. HEENT: Head exam is unremarkable. LUNGS: Breath sounds decreased. HEART: Rate and Rhythm are regular. ABDOMEN: Soft, no distention. EXTREMITITES: No edema. Past Medical History Past Medical History: Atrial Fibrillation, Cancer, Heart Failure, COPD, Diabetes Mellitus, Hyperlipidemia, Hypertension, Osteoarthritis (OA), Prostate Disorder, Renal Disease, Sleep Apnea/CPAP/BIPAP Additional Past Medical History / Comment(s): ARDS, hx of DM was tx for dm from age 9- 35, had pancreas transplant), uses cpap machine, basal/squamous cell skin cancer, cancer on neck had surg & radiation on neck 02/2020. hx rt elbow broken-(sx), charcots foot, pancreatitis, bladder leakage History of Any Multi-Drug Resistant Organisms: None Reported Past Surgical History: Hernia Repair, Joint Replacement Additional Past Surgical History / Comment(s): 2 kidney and 1 pancreas t ransplant, L knee replacment, rt elbow sx has 7 screws,cataracts removed-lens implants, laser eye sx for retinopathy, fernando foot sx(rt foot bone gravt and lt foot bone shaved), skin cancer removed on his head, Past Anesthesia/Blood Transfusion Reactions: No Reported Reaction Past Psychological History: No Psychological Hx Reported Smoking Status: Never smoker Past Alcohol Use History: None Reported Additional Past Alcohol Use History / Comment(s): chew tobacco occ. No alcohol in 1 1/2 years. Past Drug Use History: None Reported - Past Family History Mother Family Medical History: Cancer, Diabetes Mellitus Additional Family Medical History / Comment(s): liver cancer Father Family Medical History: CVA/TIA Additional Family Medical History / Comment(s): was smoker had stroke in his 30's Medications and Allergies Home Medications Medication Instructions Recorded Confirmed Type Pravastatin Sodium [Pravachol] 20 mg PO HS 11/23/13 02/09/22 History Sodium Bicarbonate Tab 1,300 mg PO BID 11/23/13 02/09/22 History Apixaban [Eliquis] 2.5 mg PO BID 09/18/18 02/09/22 History Tamsulosin [Flomax] 0.4 mg PO BID 09/18/18 02/09/22 History Ferrous Sulfate [Iron (65 MG 325 mg PO DAILY 12/17/18 02/09/22 History Elemental)] Montelukast [Singulair] 10 mg PO HS 12/17/18 02/09/22 History allopurinoL [Zyloprim] 100 mg PO DAILY 12/17/18 02/09/22 History calcitrioL [Rocaltrol] 0.5 mcg PO MOWEFR 12/17/18 02/09/22 History predniSONE 5 mg PO DAILY 03/09/19 02/09/22 History Labetalol HCl 400 mg PO BID 11/15/19 02/09/22 History amLODIPine [Norvasc] 5 mg PO BID 11/15/19 02/09/22 History Tacrolimus [Prograf] 0.5 mg PO HS 03/03/20 02/09/22 History calcitrioL [Rocaltrol] 0.25 mcg PO SUTUTHSA 03/03/20 02/09/22 History Ergocalciferol [Vitamin D2 50,000 unit PO WE 05/02/20 02/09/22 History (DRISDOL)] Tacrolimus [Prograf] 1 mg PO DAILY 05/02/20 02/09/22 History Niacinamide 500 mg PO BID-W/MEALS 10/23/20 02/09/22 History Spironolactone [Aldactone] 12.5 mg PO DAILY 11/23/20 02/09/22 History Acetaminophen Tab [Tylenol Tab] 1,000 mg PO Q6HR PRN 02/09/22 02/09/22 History Albuterol Nebulized [Ventolin 2.5 mg INHALATION RT-Q6H PRN 02/09/22 02/09/22 History Nebulized] Albuterol Sulfate [Proair Hfa] 1 - 2 puff INHALATION RT-Q6H PRN 02/09/22 02/09/22 History Famotidine 20 mg PO DAILY 02/09/22 02/09/22 History Magnesium Oxide 400 mg PO DAILY 02/09/22 02/09/22 History Torsemide [Demadex] 10 mg PO DAILY 02/09/22 02/09/22 History hydrALAZINE HCL [Apresoline] 50 mg PO BID 02/09/22 02/09/22 History Allergies Allergy/AdvReac Type Severity Reaction Status Date / Time Iodine and Iodide Containing AdvReac HX OF Verified 02/09/22 11:59 Produc KIDNEY DISEASE Physical Exam Vitals: Vital Signs Temp Pulse Pulse Resp BP BP BP 02/10/22 07:00 98.4 F 78 16 163/79 02/10/22 03:00 98.4 F 80 19 153/72 02/10/22 01:31 74 20 02/09/22 20:15 74 20 02/09/22 20:13 97.4 F L 74 20 144/71 02/09/22 18:56 18 02/09/22 17:32 97.6 F 74 22 150/73 02/09/22 16:53 78 18 142/77 02/09/22 11:55 97.7 F 68 20 112/64 Pulse Ox 02/10/22 07:00 91 L 02/10/22 03:00 92 L 02/10/22 01:31 02/09/22 20:15 02/09/22 20:13 02/09/22 18:56 02/09/22 17:32 96 02/09/22 16:53 96 02/09/22 11:55 98 Intake and Output 02/09/22 02/10/22 02/10/22 22:59 06:59 14:59 Intake Total 118 Output Total 650 2600 350 Balance -650 -2600 -232 Intake: Oral 118 Output: Urine 650 2600 350 Other: Voiding Method Indwelling Catheter Indwelling Catheter Indwelling Catheter Weight 68.039 kg Results - Lab Results Most recent lab results Calcium 9.5 mg/dL (8.4-10.2) 02/10/22 04:06 02/10/22 04:06 02/10/22 04:06 Assessment and Plan Plan: Assessment: 1. Acute kidney injury secondary to ATN secondary to cardiorenal syndrome. Creatinine 2.36 on admission and is 2.25 today. 2. Chronic kidney disease stage IIIB with baseline creatinine near 1.5-1.6 with concern of progression of underlying chronic kidney disease. 3. donor pancreatic transplant and living related donor renal transplant. 4. Metabolic acidosis secondary to acute kidney injury. On oral bicarb. 5. Penile and scrotal swelling. Scrotal ultrasound showed scrotal edema with possible cellulitis. Varicoceles were noted. On antibiotics per ID. Urology also consulted. 6. Chronic kidney disease mineral bone disease maintained on calcitriol. 7. Hypertension with chronic kidney disease. 8. Chronic diastolic CHF. Plan: Resume home immunosuppressive medications - tacrolimus and prednisone. Check tacrolimus level. Follow-up cultures. 2 A of sodium bicarb IV push. Hold antihypertensives resumed. I will add when necessary hydralazine as well. Avoid nephrotoxins. Continue to monitor renal function and urine output. Thank you for the consultation. I will continue to follow this patient with you during his hospital stay.
[2022-02-10] MEDS: SODIUM CHLORIDE 0.9% 1,000 ML IV SCH (17:36)
[2022-02-10] MEDS: NIACIN TR 500 MG CAPLET PO SCH (17:36)
[2022-02-10] MEDS: FAMOTIDINE 20 MG TAB PO SCH (20:03)
[2022-02-10] MEDS: MONTELUKAST 10 MG TAB PO SCH (20:03)
[2022-02-10] MEDS: TACROLIMUS 0.5 MG CAP PO SCH (20:04)
[2022-02-10] MEDS: PRAVASTATIN SODIUM 20 MG TAB PO SCH (20:04)
--- NOTE | 2022-02-11 00:08 | P.PN ---
Subjective Progress Note Date: 02/10/22 Principal diagnosis: Scrotal cellulitis Patient is a 56-year-old woman with a past medical history significant for pancreas and kidney transplant presenting to the hospital with the scrotal swelling and redness has been diagnosed with the scrotal cellulitis ultrasound w as negative for any abscess On today's evaluation that is 02/10/2022, the patient denies having any fevers or any chills, the patient scrotal pain and swelling has slightly decreased in intensity patient did have some drainage last night and culture were obtained patient denies having any chest pain or shortness of breath or cough and no diarrhea Objective - Vital Signs Vital signs: Vital Signs Temp 98.4 F 02/10/22 07:00 Pulse 78 02/10/22 07:00 Resp 16 02/10/22 07:00 BP 163/79 02/10/22 07:00 Pulse Ox 91 L 02/10/22 07:00 FiO2 Intake & Output 02/09/22 02/10/22 02/10/22 18:59 06:59 18:59 Intake Total 118 Output Total 3250 350 Balance -3250 -232 Weight 68.039 kg Intake: Oral 118 Output: Urine 3250 350 Other: Voiding Method Indwelling Catheter Indwelling Catheter Indwelling Catheter - Exam GENERAL DESCRIPTION: Middle-age male lying in bed in no distress RESPIRATORY SYSTEM: Unlabored breathing , decreased breath sounds at bases HEART: S1 S2 regular rate and rhythm , ABDOMEN: Soft , no tenderness GENITOURINARY: Scrotal swelling and redness has slightly decreased EXTREMITIES: No edema feet - Labs CBC & Chem 7: 02/10/22 04:06 02/10/22 04:06 Labs: Abnormal Lab Results - Last 24 Hours (Table) 02/09/22 02/09/22 02/09/22 Range/Units 13:12 13:12 13:12 WBC 12.6 H (3.8-10.6) k/uL RBC 4.08 L (4.30-5.90) m/uL Hgb (13.0-17.0) g/dL Hct 37.2 L (39.0-53.0) % MPV (9.5-12.2) fL Immature Gran # (0.00-0.04) X 10*3/uL Neutrophils # 10.9 H (1.3-7.7) k/uL Lymphocytes # 0.5 L (1.0-4.8) k/uL Monocytes # (0.20-1.00) X 10*3/uL Sodium 134 L (137-145) mmol/L Carbon Dioxide 18 L (22-30) mmol/L BUN 50 H (9-20) mg/dL Creatinine 2.36 H (0.66-1.25) mg/dL Glucose 111 H (74-99) mg/dL Alkaline Phosphatase 127 H (38-126) U/L Urine Protein Trace H (Negative) Ur Leukocyte Esterase Large H (Negative) Urine Mucus Rare H (None) /hpf 02/10/22 02/10/22 Range/Units 04:06 04:06 WBC 11.72 H (3.8-10.6) k/uL RBC 3.67 L (4.30-5.90) m/uL Hgb 11.6 L (13.0-17.0) g/dL Hct 33.5 L (39.0-53.0) % MPV 8.8 L (9.5-12.2) fL Immature Gran # 0.06 H (0.00-0.04) X 10*3/uL Neutrophils # 9.36 H (1.3-7.7) k/uL Lymphocytes # 0.79 L (1.0-4.8) k/uL Monocytes # 1.41 H (0.20-1.00) X 10*3/uL Sodium 135 L (137-145) mmol/L Carbon Dioxide 17 L (22-30) mmol/L BUN 45 H (9-20) mg/dL Creatinine 2.25 H (0.66-1.25) mg/dL Glucose (74-99) mg/dL Alkaline Phosphatase (38-126) U/L Urine Protein (Negative) Ur Leukocyte Esterase (Negative) Urine Mucus (None) /hpf Microbiology - Last 24 Hours (Table) 02/09/22 19:52 Wound Culture - Preliminary Groin Assessment and Plan (1) Cellulitis of scrotum Current Visit: Yes Status: Acute Code(s): N49.2 - INFLAMMATORY DISORDERS OF SCROTUM SNOMED Code(s): 30016568 Plan: 1patient presented to hospital with scrotal swelling and redness that been going on for 2 days ultrasound of the scrotum shows possible cellulitis no evidence of any drainable abscess patient currently with no evidence of any fluctuation drainage and will need to cover for gram-positive skin tayler to the likely pathogen and less likely gram-negative 2-patient with the history of pancreas and kidney transplant on immunos uppressive medication 3-borderline kidney function high risk of nephrotoxicity from vancomycin 4-patient has shown clinical improvement and will continue with the Zosyn and daptomycin while waiting for the cultures to finalize Time with Patient: Less than 30
[2022-02-11] MEDS: PIPERACILLIN-TAZOBACTAM 3.375 GM in SODIUM CHLORIDE 0.9% 100 ML IVPB SCH ×3 (00:28→17:31)
--- NOTE | 2022-02-11 02:32 | PN ---
PROGRESS NOTE SUBJECTIVE: This is a 56-year-old gentleman, who was admitted with scrotal cellulitis, on broad- spectrum IV antibiotics. No chest pain. No palpitations. No fever. PHYSICAL EXAMINATION: VITAL SIGNS: Pulse 80, blood pressure is 157/72, respirations 16. CHEST: Clear to auscultation. CARDIOVASCULAR: S1, S2 muffled. ABDOMEN: Soft. NERVOUS SYSTEM: No focal deficits. : Scrotum, significant cellulitis and penile edema were present. LABS: Noted. Cultures are pending at this time. ASSESSMENT: 1. Scrotal cellulitis. 2. History of kidney pancreas transplantation. 3. Chronic obstructive pulmonary disease acute exacerbation. 4. Diabetes mellitus, type 2. 5. Hypertension. 6. Multiple medical issues. DISCUSSION AND RECOMMENDATIONS: I recommend to continue current medications. Continue broad-spectrum IV antibiotics. Follow the cultures. I would recommend repeat cultures and closely follow with Infectious Disease. Further recommendations to follow. See orders for further details. MMODL / IJN: [id number] /
[2022-02-11 04:51] LABS: ALT 17 U/L (4-49); AST 19 U/L (17-59); African American GFR (CKD) 42 (>60 ml/min/1.73 sqM); Albumin 3.8 g/dL (3.5-5.0); Albumin/Globulin Ratio 1.7; Alkaline Phosphatase 112 U/L (38-126); Anion Gap 12 mmol/L; Blood Urea Nitrogen 34 mg/dL (9-20); Calcium 8.8 mg/dL (8.4-10.2); Carbon Dioxide 22 mmol/L (22-30); Chloride 103 mmol/L (98-107); Globulin 2.3 g/dL; Glucose 106 mg/dL (74-99); Non-African American GFR(CKD) 37 (>60 ml/min/1.73 sqM); Potassium 3.9 mmol/L (3.5-5.1); Sodium 137 mmol/L (137-145); Total Protein 6.1 g/dL (6.3-8.2)
[2022-02-11 04:52] LABS: Magnesium 1.6 mg/dL (1.6-2.3)
[2022-02-11] MEDS: LABETALOL 200 MG TAB PO SCH ×2 (08:16→21:19)
[2022-02-11] MEDS: TAMSULOSIN 0.4 MG CAP.ER.24H PO SCH ×2 (08:17→21:21)
[2022-02-11] MEDS: hydrALAZINE HCL 50 MG TAB PO SCH (08:17)
[2022-02-11] MEDS: predniSONE 5 MG TAB PO SCH (08:17)
[2022-02-11] MEDS: TACROLIMUS 1 MG CAP PO SCH (08:18)
[2022-02-11] MEDS: FERROUS SULFATE 325 MG TAB PO SCH (08:18)
[2022-02-11] MEDS: SODIUM BICARBONATE TAB 650 MG TAB PO SCH ×2 (08:18→21:20)
[2022-02-11] MEDS: amLODIPine 5 MG TAB PO SCH ×2 (08:18→21:18)
[2022-02-11] MEDS: allopurinoL 100 MG TAB PO SCH (08:18)
[2022-02-11] MEDS: APIXABAN 2.5 MG TABLET PO SCH ×2 (08:23→21:18)
[2022-02-11] MEDS ORDERED: MAGNESIUM OXIDE 400 MG TAB PO SCH (09:00)
[2022-02-11 09:35] LABS: HCT 33.3 % (39.6-50.0); HGB 11.5 g/dL (13.0-17.0); MCH 31.3 pg (27.0-32.0); MCHC 34.5 g/dL (32.0-37.0); MCV 90.7 fL (80.0-97.0); Mean Platelet Volume 9.1 fL (9.5-12.2); NRBC Per 100 WBC 0 /100 WBCS (0.0-0.0); Platelet Count 162 X 10*3/uL (140-440); RBC 3.67 X 10*6/uL (4.40-5.60); RDW 13.9 % (11.5-14.5); WBC 10.54 X 10*3/uL (4.50-10.00)
[2022-02-11] MEDS ORDERED: ONDANSETRON 4 MG/2 ML VIAL IVP PRN (10:08)
[2022-02-11 10:09] LABS: Basophils # (A) 0.03 X 10*3/uL (0.00-0.10); Basophils % (A) 0.3 %; Eosinophils # (A) 0.11 X 10*3/uL (0.04-0.35); Immature Grans, Automated 0.6 %; Lymphocytes % (A) 6.6 %; Monocytes # (A) 1.63 X 10*3/uL (0.20-1.00); Monocytes % (A) 15.5 %; Neutrophils # (A) 8.01 X 10*3/uL (1.80-7.70); RBC Morphology NORMAL
--- NOTE | 2022-02-11 10:39 | P.PN ---
Subjective Patient is seen in follow-up for acute kidney injury on chronic kidney disease and renal transplant management. Renal function improved. Patient states penile swelling is mostly resolved. Has been voiding. Maxwell catheter was removed this morning. No vomiting or diarrhea. Vital signs are stable. General: Awake. No acute distress. HEENT: Head exam is unremarkable. LUNGS: Breath sounds decreased. HEART: Rate and Rhythm are regular. ABDOMEN: Soft, no distention. EXTREMITITES: No edema. Objective - Vital Signs Vital signs: Vital Signs Temp 98.3 F 02/11/22 07:00 Pulse 78 02/11/22 07:00 Resp 18 02/11/22 07:00 BP 154/82 02/11/22 07:00 Pulse Ox 92 L 02/11/22 07:00 FiO2 Intake & Output 02/10/22 02/11/22 02/11/22 18:59 06:59 18:59 Intake Total 476 118 Output Total 825 1100 Balance -349 -1100 118 Intake: Oral 476 118 Output: Urine 825 1100 Other: Voiding Method Indwelling Catheter Indwelling Catheter # Bowel Movements 3 - Labs CBC & Chem 7: 02/11/22 03:33 02/11/22 03:33 Labs: Abnormal Lab Results - Last 24 Hours (Table) 02/11/22 02/11/22 02/11/22 Range/Units 03:33 03:33 03:33 WBC 10.54 H (4.50-10.00) X 10*3/uL RBC 3.67 L (4.40-5.60) X 10*6/uL Hgb 11.5 L (13.0-17.0) g/dL Hct 33.3 L (39.6-50.0) % Plt Count Comment A MPV 9.1 L (9.5-12.2) fL Immature Gran # 0.06 H (0.00-0.04) X 10*3/uL Neutrophils # 8.01 H (1.80-7.70) X 10*3/uL Lymphocytes # 0.70 L (0.90-5.00) X 10*3/uL Monocytes # 1.63 H (0.20-1.00) X 10*3/uL BUN 34 H (9-20) mg/dL Creatinine 2.05 H 1.97 H (0.66-1.25) mg/dL Glucose 106 H (74-99) mg/dL Total Protein 6.1 L (6.3-8.2) g/dL Microbiology - Last 24 Hours (Table) 02/09/22 19:52 Gram Stain - Preliminary Groin Wound Culture - Preliminary 02/09/22 17:36 Blood Culture - Preliminary Blood No Growth after 24 hours Assessment and Plan Plan: Assessment: 1. Acute kidney injury secondary to ATN secondary to cardiorenal syndrome. Creatinine 2.36 on admission and is 1.97 today. 2. Chronic kidney disease stage IIIB with baseline creatinine near 1.5-1.6 with concern of progression of underlying chronic kidney disease. 3. donor pancreatic transplant and living related donor renal transplant. 4. Metabolic acidosis secondary to acute kidney injury. On oral bicarb. Improved. 5. Penile and scrotal swelling. Scrotal ultrasound showed scrotal edema with possible cellulitis. Varicoceles were noted. On antibiotics per ID. Urology also following. Improved. 6. Chronic kidney disease mineral bone disease maintained on calcitriol. 7. Hypertension with chronic kidney disease. Stable. 8. Chronic diastolic CHF. 9. Hypomagnesemia from renal wasting from Prograf. Plan: Maintain home immunosuppressive medications - tacrolimus and prednisone. Follow-up tacrolimus level. Follow-up cultures. Increase dose of hydralazine. Increase dose of mag ox to twice a day. Avoid nephrotoxins. Continue to monitor renal function and urine output. Patient to resume torsemide 20 mg every other day upon discharge. He was advised to monitor his weight closely at home and to take torsemide daily if notices edema or weight gain of more than 3 pounds in 1 week duration. He was also advised to notify physician if notices edema. Follow-up outpatient in 1-2 weeks postdischarge. Repeat BMP and magnesium level 2-3 days postdischarge.
--- NOTE | 2022-02-11 15:29 | P.PN ---
Subjective Progress Note Date: 02/11/22 Principal diagnosis: Scrotal cellulitis Patient is a 56-year-old woman with a past medical history significant for pancreas and kidney transplant presenting to the hospital with the scrotal swelling and redness has been diagnosed with the scrotal cellulitis ultrasound w as negative for any abscess On today's evaluation that is 02/11/2022, the patient remains to be afebrile, the patient scrotal pain and swelling has decreased in intensity and denies further drainage , patient denies having any chest pain or shortness of breath or cough and no diarrhea Objective - Vital Signs Vital signs: Vital Signs Temp 97.7 F 02/11/22 13:14 Pulse 76 02/11/22 13:14 Resp 18 02/11/22 07:00 BP 152/79 02/11/22 13:14 Pulse Ox 94 L 02/11/22 13:14 FiO2 Intake & Output 02/10/22 02/11/22 02/11/22 18:59 06:59 18:59 Intake Total 476 236 Output Total 825 1100 Balance -349 -1100 236 Intake: Oral 476 236 Output: Urine 825 1100 Other: Voiding Method Indwelling Catheter Indwelling Catheter # Voids 1 # Bowel Movements 3 - Exam GENERAL DESCRIPTION: Middle-age male lying in bed in no distress RESPIRATORY SYSTEM: Unlabored breathing , decreased breath sounds at bases HEART: S1 S2 regular rate and rhythm , ABDOMEN: Soft , no tenderness GENITOURINARY: Scrotal swelling and redness has slightly decreased EXTREMITIES: No edema feet - Labs CBC & Chem 7: 02/11/22 03:33 02/11/22 03:33 Labs: Abnormal Lab Results - Last 24 Hours (Table) 02/11/22 02/11/22 02/11/22 Range/Units 03:33 03:33 03:33 WBC 10.54 H (4.50-10.00) X 10*3/uL RBC 3.67 L (4.40-5.60) X 10*6/uL Hgb 11.5 L (13.0-17.0) g/dL Hct 33.3 L (39.6-50.0) % Plt Count Comment A MPV 9.1 L (9.5-12.2) fL Immature Gran # 0.06 H (0.00-0.04) X 10*3/uL Neutrophils # 8.01 H (1.80-7.70) X 10*3/uL Lymphocytes # 0.70 L (0.90-5.00) X 10*3/uL Monocytes # 1.63 H (0.20-1.00) X 10*3/uL BUN 34 H (9-20) mg/dL Creatinine 2.05 H 1.97 H (0.66-1.25) mg/dL Glucose 106 H (74-99) mg/dL Total Protein 6.1 L (6.3-8.2) g/dL Microbiology - Last 24 Hours (Table) 02/09/22 19:52 Gram Stain - Preliminary Groin Wound Culture - Preliminary 02/09/22 17:36 Blood Culture - Preliminary Blood No Growth after 24 hours Assessment and Plan (1) Cellulitis of scrotum Current Visit: Yes Status: Acute Code(s): N49.2 - INFLAMMATORY DISORDERS OF SCROTUM SNOMED Code(s): 36344562 Plan: 1patient presented to hospital with scrotal swelling and redness that been going on for 2 days ultrasound of the scrotum shows possible cellulitis no evidence of any drainable abscess patient currently with no evidence of any fluctuation drainage and will need to cover for gram-positive skin tayler to the likely pathogen and less likely gram-negative 2-patient with the history of pancreas and kidney transplant on immunosuppressive medication 3-borderline kidney function high risk of nephrotoxicity from vancomycin 4-patient has shown clinical improvement and will continue with the Zosyn and daptomycin while waiting for the cultures to finalize determination his discharge antibiotics at the bedside questions concerned were answered Time with Patient: Less than 30
[2022-02-11] MEDS: NIACIN TR 500 MG CAPLET PO SCH (17:30)
[2022-02-11] MEDS: SODIUM CHLORIDE 0.9% 1,000 ML IV SCH (17:31)
[2022-02-11] MEDS: FAMOTIDINE 20 MG TAB PO SCH (21:18)
[2022-02-11] MEDS: hydrALAZINE HCL 25 MG TAB PO SCH (21:19)
[2022-02-11] MEDS: PRAVASTATIN SODIUM 20 MG TAB PO SCH (21:20)
[2022-02-11] MEDS: TACROLIMUS 0.5 MG CAP PO SCH (21:20)
[2022-02-11] MEDS: MAGNESIUM OXIDE 400 MG TAB PO SCH (21:20)
[2022-02-11] MEDS: MONTELUKAST 10 MG TAB PO SCH (21:20)
[2022-02-12] MEDS: PIPERACILLIN-TAZOBACTAM 3.375 GM in SODIUM CHLORIDE 0.9% 100 ML IVPB SCH ×4 (00:21→22:50)
[2022-02-12] MEDS: APIXABAN 2.5 MG TABLET PO SCH ×2 (08:20→20:30)
[2022-02-12] MEDS: hydrALAZINE HCL 25 MG TAB PO SCH (08:20)
[2022-02-12] MEDS: allopurinoL 100 MG TAB PO SCH (08:20)
[2022-02-12] MEDS: predniSONE 5 MG TAB PO SCH (08:20)
[2022-02-12] MEDS: TAMSULOSIN 0.4 MG CAP.ER.24H PO SCH ×2 (08:20→20:30)
[2022-02-12] MEDS: FERROUS SULFATE 325 MG TAB PO SCH (08:20)
[2022-02-12] MEDS: MAGNESIUM OXIDE 400 MG TAB PO SCH ×2 (08:21→20:30)
[2022-02-12] MEDS: LABETALOL 200 MG TAB PO SCH ×2 (08:21→20:29)
[2022-02-12] MEDS: amLODIPine 5 MG TAB PO SCH ×2 (08:21→20:29)
[2022-02-12] MEDS: TACROLIMUS 1 MG CAP PO SCH (08:21)
[2022-02-12] MEDS: SODIUM BICARBONATE TAB 650 MG TAB PO SCH ×2 (08:21→20:30)
--- NOTE | 2022-02-12 08:33 | PN ---
PROGRESS NOTE SUBJECTIVE: This is a 56-year-old gentleman, who was admitted with significant scrotal cellulitis, penile edema also, renal failure also, multiple consults following the patient closely. The creatinine is 1.97 today, which is improving. OBJECTIVE: VITAL SIGNS: Pulse is 78, blood pressure 154/82, and respiration 18. HEENT: Conjunctivae normal. NECK: No carotid bruits. RESPIRATION: Breath sounds diminished at the bases. ABDOMEN: Soft. Scrotal swelling and edema present. Cellulitis also present, improving. LABORATORY DATA: Creatinine noted. ASSESSMENT: 1. Acute scrotal cellulitis. 2. History of kidney pancreas transplantation. 3. Chronic obstructive pulmonary disease acute exacerbation. 4. Diabetes mellitus, type 2. 5. Hypertension. 6. Multiple medical issues. RECOMMENDATIONS: I recommend to continue current management, otherwise, continue with antibiotics. Closely follow with Urology and Infectious Disease. Guarded prognosis. Further recommendations to follow. MMODL / IJN: [id number] /
--- NOTE | 2022-02-12 10:38 | P.PN ---
Subjective Patient is seen in follow-up for acute kidney injury on chronic kidney disease and renal transplant management. Renal function improved. Creatinine 1.89 today. Patient has no active complaints. Vital signs are stable. General: Awake. No acute distress. HEENT: Head exam is unremarkable. LUNGS: Breath sounds decreased. HEART: Rate and Rhythm are regular. ABDOMEN: Soft, no distention. EXTREMITITES: No edema. Objective - Vital Signs Vital signs: Vital Signs Temp 98.3 F 02/12/22 07:00 Pulse 75 02/12/22 08:00 Resp 16 02/12/22 08:00 BP 156/79 02/12/22 07:00 Pulse Ox 93 L 02/12/22 07:00 FiO2 Intake & Output 02/11/22 02/12/22 02/12/22 18:59 06:59 18:59 Intake Total 236 200 Output Total 350 450 Balance -114 -450 200 Intake: Oral 236 200 Output: Urine 350 450 Other: Voiding Method Urinal # Voids 2 - Labs CBC & Chem 7: 02/11/22 03:33 02/12/22 06:13 Labs: Abnormal Lab Results - Last 24 Hours (Table) 02/12/22 Range/Units 06:13 Creatinine 1.89 H (0.66-1.25) mg/dL Microbiology - Last 24 Hours (Table) 02/09/22 17:36 Blood Culture - Preliminary Blood No Growth after 48 hours 02/09/22 19:52 Gram Stain - Final Groin Wound Culture - Final Assessment and Plan Plan: Assessment: 1. Acute kidney injury secondary to ATN secondary to cardiorenal syndrome. Creatinine 2.36 on admission and is 1.89 today. 2. Chronic kidney disease stage IIIB with baseline creatinine near 1.5-1.6 with concern of progression of underlying chronic kidney disease. 3. donor pancreatic transplant and living related donor renal transplant. 4. Metabolic acidosis secondary to acute kidney injury. On oral bicarb. Improved. 5. Penile and scrotal swelling. Scrotal ultrasound showed scrotal edema with possible cellulitis. Varicoceles were noted. On antibiotics per ID. Urology also following. Improved. 6. Chronic kidney disease mineral bone disease maintained on calcitriol. 7. Hypertension with chronic kidney disease. Stable. 8. Chronic diastolic CHF. 9. Hypomagnesemia from renal wasting from Prograf. On oral magnesium oxide. Plan: Maintain home immunosuppressive medications - tacrolimus and prednisone. Follow-up tacrolimus level. Follow-up cultures. Further increase dose of hydralazine. Avoid nephrotoxins. Continue to monitor renal function and urine output. Patient to resume torsemide 20 mg every other day upon discharge. He was advised to monitor his weight closely at home and to take torsemide daily if notices edema or weight gain of more than 3 pounds in 1 week duration. He was also advised to notify physician if notices edema. Follow-up outpatient in 1-2 weeks postdischarge. Repeat BMP and magnesium level 2-3 days postdischarge.
[2022-02-12] MEDS: SODIUM CHLORIDE 0.9% 1,000 ML IV SCH (16:25)
[2022-02-12] MEDS: NIACIN TR 500 MG CAPLET PO SCH (17:34)
[2022-02-12] MEDS: MONTELUKAST 10 MG TAB PO SCH (20:29)
[2022-02-12] MEDS: PRAVASTATIN SODIUM 20 MG TAB PO SCH (20:29)
[2022-02-12] MEDS: TACROLIMUS 0.5 MG CAP PO SCH (20:29)
[2022-02-12] MEDS: hydrALAZINE HCL 50 MG TAB PO SCH (20:30)
[2022-02-12] MEDS: FAMOTIDINE 20 MG TAB PO SCH (20:30)
--- NOTE | 2022-02-13 04:55 | PN ---
PROGRESS NOTE SUBJECTIVE: This is a 56-year-old gentleman, who was admitted with acute scrotal cellulitis, and failure of outpatient treatment, is severely immunosuppressed. No chest pain. No palpitations. The patient still has a scrotal erythema and some penile edema also. Cultures are negative so far. PHYSICAL EXAMINATION: VITAL SIGNS: Pulse is 75, blood pressure 150/70, respirations 16. CHEST: Clear to auscultation. CARDIOVASCULAR: S1, S2 muffled. ABDOMEN: Soft. : Scrotal cellulitis, and pedal edema. LABS: Reviewed. Creatinine is 1.89. ASSESSMENT: 1. Acute scrotal cellulitis. 2. History of kidney pancreas transplantation. 3. Chronic obstructive pulmonary disease. 4. Diabetes mellitus, type 2. 5. Hypertension. 6. Multiple medical issues. RECOMMENDATIONS AND DISCUSSION: I recommend to continue current medications, symptomatic treatment. Otherwise, at this time I recommend continue the antibiotics. Repeat labs. Closely follow with multiple consultants. Prognosis guarded. Further recommendations to follow. The patient is on daptomycin at this time. MMODL / IJN: [id number] /
[2022-02-13 07:33] VITALS: BP 161/75; PULSE 72; RESP 16; TEMP 97.9
[2022-02-13] MEDS: LABETALOL 200 MG TAB PO SCH (08:24)
[2022-02-13] MEDS: hydrALAZINE HCL 50 MG TAB PO SCH (08:24)
[2022-02-13] MEDS: amLODIPine 5 MG TAB PO SCH (08:24)
[2022-02-13] MEDS: SODIUM BICARBONATE TAB 650 MG TAB PO SCH (08:25)
[2022-02-13] MEDS: TAMSULOSIN 0.4 MG CAP.ER.24H PO SCH (08:25)
[2022-02-13] MEDS: APIXABAN 2.5 MG TABLET PO SCH (08:25)
[2022-02-13] MEDS: FERROUS SULFATE 325 MG TAB PO SCH (08:25)
[2022-02-13] MEDS: predniSONE 5 MG TAB PO SCH (08:26)
[2022-02-13] MEDS: MAGNESIUM OXIDE 400 MG TAB PO SCH (08:27)
[2022-02-13] MEDS: allopurinoL 100 MG TAB PO SCH (08:27)
[2022-02-13 08:53] LABS: Basophils # (A) 0.02 X 10*3/uL (0.00-0.10); Basophils % (A) 0.2 %; Eosinophils % (A) 1.1 %; HCT 32.6 % (39.6-50.0); HGB 11.3 g/dL (13.0-17.0); Immature Grans, Automated 0.8 %; Lymphocytes # (A) 0.71 X 10*3/uL (0.90-5.00); MCH 31.2 pg (27.0-32.0); MCHC 34.7 g/dL (32.0-37.0); MCV 90.1 fL (80.0-97.0); Monocytes # (A) 1.22 X 10*3/uL (0.20-1.00); Monocytes % (A) 13.7 %; NRBC Per 100 WBC 0 /100 WBCS (0.0-0.0); Neutrophils % (A) 76.2 %; Platelet Count 126 X 10*3/uL (140-440); RBC 3.62 X 10*6/uL (4.40-5.60); RDW 13.7 % (11.5-14.5); WBC 8.92 X 10*3/uL (4.50-10.00)
[2022-02-13 09:09] LABS: Anion Gap 11.8 mmol/L (10.00-18.00); BUN/Creat Ratio 12.67 Ratio (12.00-20.00); Blood Urea Nitrogen 22.8 mg/dL (9.0-27.0); Carbon Dioxide 19.2 mmol/L (20.0-27.5); Non-African American GFR(CKD) 40.6 (60.0-200.0); Potassium 3.6 mmol/L (3.5-5.5)
[2022-02-13] MEDS: TACROLIMUS 1 MG CAP PO SCH (10:01)
[2022-02-13] MEDS: PIPERACILLIN-TAZOBACTAM 3.375 GM in SODIUM CHLORIDE 0.9% 100 ML IVPB SCH (10:01)
[2022-02-13] MEDS ORDERED: SODIUM BICARB 8.4% 50 ML SYR (1 MEQ/ML) IV STA (10:26)
[2022-02-13] MEDS ORDERED: POTASSIUM CHLORIDE ER 20 MEQ TAB.ER PO STA (10:29)
--- NOTE | 2022-02-13 10:29 | P.PN ---
Subjective Patient is seen in follow-up for acute kidney injury on chronic kidney disease and renal transplant management. Renal function stable. Patient has no active complaints. Possible discharge today. Vital signs are stable. General: Awake. No acute distress. HEENT: Head exam is unremarkable. LUNGS: Breath sounds decreased. HEART: Rate and Rhythm are regular. ABDOMEN: Soft, no distention. EXTREMITITES: No edema. Objective - Vital Signs Vital signs: Vital Signs Temp 97.9 F 02/13/22 07:32 Pulse 72 02/13/22 08:00 Resp 16 02/13/22 08:00 BP 161/75 02/13/22 07:32 Pulse Ox 94 L 02/13/22 07:32 FiO2 Intake & Output 02/12/22 02/13/22 02/13/22 18:59 06:59 18:59 Intake Total 200 Balance 200 Intake: Oral 200 Other: Voiding Method Urinal Urinal Urinal # Voids 3 - Labs CBC & Chem 7: 02/13/22 06:06 02/13/22 06:06 Labs: Abnormal Lab Results - Last 24 Hours (Table) 02/13/22 02/13/22 Range/Units 06:06 06:06 RBC 3.62 L (4.40-5.60) X 10*6/uL Hgb 11.3 L (13.0-17.0) g/dL Hct 32.6 L (39.6-50.0) % Plt Count 126 L (140-440) X 10*3/uL MPV 9.0 L (9.5-12.2) fL Immature Gran # 0.07 H (0.00-0.04) X 10*3/uL Lymphocytes # 0.71 L (0.90-5.00) X 10*3/uL Monocytes # 1.22 H (0.20-1.00) X 10*3/uL Carbon Dioxide 19.2 L (20.0-27.5) mmol/L Creatinine 1.8 H (0.6-1.5) mg/dL Est GFR (CKD-EPI)AfAm 47.0 L (60.0-200.0) Est GFR (CKD-EPI)NonAf 40.6 L (60.0-200.0) Glucose 121 H (70-110) mg/dL Microbiology - Last 24 Hours (Table) 02/09/22 17:36 Blood Culture - Preliminary Blood No Growth after 72 hours Assessment and Plan Plan: Assessment: 1. Acute kidney injury secondary to ATN secondary to cardiorenal syndrome. Creatinine 2.36 on admission and is 1.8 today. 2. Chronic kidney disease stage IIIB with baseline creatinine near 1.5-1.6 with concern of progression of underlying chronic kidney disease. 3. donor pancreatic transplant and living related donor renal transp lant. 4. Metabolic acidosis secondary to acute kidney injury. On oral bicarb. 5. Penile and scrotal swelling. Scrotal ultrasound showed scrotal edema with possible cellulitis. Varicoceles were noted. On antibiotics per ID. Urology also following. Improved. 6. Chronic kidney disease mineral bone disease maintained on calcitriol. 7. Hypertension with chronic kidney disease. Blood pressure on the higher side. 8. Chronic diastolic CHF. 9. Hypomagnesemia from renal wasting from Prograf. On oral magnesium oxide. Plan: Maintain home immunosuppressive medications - tacrolimus and prednisone. Tacrolimus level 8.4 dated 02/11/2022 - decrease dose of Prograf to 0.5 mg twice daily. Goal Prograf level 4-6. The level will be rechecked outpatient. Follow-up cultures. Increase frequency of hydralazine to 3 times a day. Hold for systolic blood pressure less than 120. Avoid nephrotoxins. Continue to monitor renal function and urine output. Patient to resume torsemide 20 mg every other day upon discharge. He was advised to monitor his weight closely at home and to take torsemide daily if notices edema or weight gain of more than 3 pounds in 1 week duration. He was also advised to notify physician if notices edema. Follow-up outpatient in 1 week postdischarge. Repeat BMP, tacrolimus level and magnesium level 2-3 days postdischarge.
[2022-02-13] MEDS ORDERED: hydrALAZINE HCL 50 MG TAB PO SCH (16:00)
[2022-02-13] MEDS ORDERED: TACROLIMUS 0.5 MG CAP PO SCH (21:00)
[2022-02-14] MEDS ORDERED: ERGOCALCIFEROL 1,250 MCG (50,000 IU) CAPSULE PO SCH (09:00)
--- NOTE | 2022-02-14 10:06 | P.DS ---
Providers Date of admission: 02/12/22 10:26 Expected date of discharge: 02/13/22 Attending physician: Amish Lizama MD Consults: 02/09/22 15:02 Consult Physician Routine Consulting Provider: Mayur Carson Consult Reason/Comments: scrotal cellulitis Do you want consulting provider notified?: Yes 02/09/22 15:05 Consult Physician Routine Consulting Provider: Amandeep Hill Consult Reason/Comments: urinary retention, scrotal cellulitis Do you want consulting provider notified?: Yes 02/09/22 15:55 Consult Physician Routine Consulting Provider: Eleonora Jo Consult Reason/Comments: CRF Do you want consulting provider notified?: Yes 02/10/22 11:36 Consult Physician Routine Consulting Provider: Eleonora Jo Consult Reason/Comments: CRF Do you want consulting provider notified?: Yes Primary care physician: Sujit Cartagena [place] [facility] Course: Final diagnosis Acute scrotal cellulitis History of kidney pancreas transplantation chronic obstructive pulmonary disease, not in exacerbation Diabetes mellitus, type II Hypertension multiple medical issues full code Discharge disposition Patient is being discharged in a stable condition with guarded prognosis to home. Patient will follow-up with Dr. Sujit Cartagena in the outpatient setting upon discharge. Patient is to also follow-up with nephrology Dr. Adhikari as scheduled. Instructed to continue with medications as prescribed as mentioned below with close outpatient follow-up with nephrology. Patient is to continue with short course of oral Keflex 500 mg every 8 hours for the next 1 week. Recommend repeat labs in the next 2-3 days to monitor electrolytes and kidney functions. Total time taken is greater than 35 minutes. Hospital course This is a 56-year-old male who was recently admitted with acute scrotal cellulitis and failure of outpatient treatment and was being closely monitored. Patient is severely immunocompromised with multiple kidney issues and follows with nephrology outpatient. Patient had multiple cultures done that have been negative and was followed by infectious disease. Scrotal swelling and erythema has improved and patient will continue on a short course of oral Keflex 500 mg 3 times a day for the next 1 week to complete the course. Patient also with elevated kidney functions that have been trending down and recommend repeat labs in the next 2-3 days. Patient is extremely anxious to go home and has been cleared by nephrology and infectious disease for discharge. Currently no reports of chest pain, shortness of breath, or palpitations. Patient is afebrile. No reports of nausea or vomiting and patient is tolerating diet. Patient will be discharged home today. Guarded prognosis. Physical exam: Gen: This is a 56-year-old male awake, alert and oriented 3, thin built HEENT: Head is atraumatic, normocephalic. Pupils equal, round. Sclerae is anicteric. NECK: Supple. No JVD. No lymphadenopathy. No thyromegaly. LUNGS: Diminished breath sounds bilaterally with no wheezes or rhonchi. No intercostal retractions. HEART: S1, S2 are muffled ABDOMEN: Soft. Bowel sounds are present. No masses. No tenderness. EXTREMITIES: No pedal edema. No calf tenderness. NEUROLOGICAL: Patient is awake, alert and oriented x3. Cranial nerves 2 through 12 are grossly intact. Please refer to medication reconciliation sheet for a list of medications. The impression and plan of care has been dictated by Ifeoma Guajardo, Nurse Practitioner as directed. Dr. Blake MD I have performed a history and examination and MDM of this patient, discussed the same with the dictator, and agree with the dictator's assessment and plan as written ,documented as a scribe. Based on total visit time, I have performed more than 50% of the visit. Patient Condition at Discharge: Fair Plan - Discharge Summary Discharge Rx Participant: No New Discharge Prescriptions: New Cephalexin [Keflex] 500 mg PO Q8HR 7 Days #21 cap Tacrolimus [Prograf] 0.5 mg PO BID 30 Days #60 cap Continue Pravastatin Sodium [Pravachol] 20 mg PO HS Sodium Bicarbonate Tab 1,300 mg PO BID Tamsulosin [Flomax] 0.4 mg PO BID Apixaban [Eliquis] 2.5 mg PO BID Ferrous Sulfate [Iron (65 MG Elemental)] 325 mg PO DAILY calcitrioL [Rocaltrol] 0.5 mcg PO MOWEFR allopurinoL [Zyloprim] 100 mg PO DAILY Montelukast [Singulair] 10 mg PO HS predniSONE 5 mg PO DAILY amLODIPine [Norvasc] 5 mg PO BID Labetalol HCl 400 mg PO BID calcitrioL [Rocaltrol] 0.25 mcg PO [facility] Ergocalciferol [Vitamin D2 (DRISDOL)] 50,000 unit PO WE Niacinamide 500 mg PO BID-W/MEALS Famotidine 20 mg PO DAILY Albuterol Sulfate [Proair Hfa] 1 - 2 puff INHALATION RT-Q6H PRN PRN Reason: Shortness Of Breath hydrALAZINE HCL [Apresoline] 50 mg PO TID #90 tab Magnesium Oxide 400 mg PO DAILY Acetaminophen Tab [Tylenol] 1,000 mg PO Q6HR PRN PRN Reason: Pain Or Fever > 100.5 Albuterol Nebulized [Ventolin Nebulized] 2.5 mg INHALATION RT-Q6H PRN PRN Reason: Shortness Of Breath Changed Torsemide [Demadex] 10 mg PO Q48H #0 Discontinued Tacrolimus [Prograf] 0.5 mg PO HS Tacrolimus [Prograf] 1 mg PO DAILY Spironolactone [Aldactone] 12.5 mg PO DAILY Discharge Medication List Pravastatin Sodium [Pravachol] 20 mg PO HS 11/23/13 [History] Sodium Bicarbonate Tab 1,300 mg PO BID 11/23/13 [History] Apixaban [Eliquis] 2.5 mg PO BID 09/18/18 [History] Tamsulosin [Flomax] 0.4 mg PO BID 09/18/18 [History] Ferrous Sulfate [Iron (65 MG Elemental)] 325 mg PO DAILY 12/17/18 [History] Montelukast [Singulair] 10 mg PO HS 12/17/18 [History] allopurinoL [Zyloprim] 100 mg PO DAILY 12/17/18 [History] calcitrioL [Rocaltrol] 0.5 mcg PO MOWEFR 12/17/18 [History] predniSONE 5 mg PO DAILY 03/09/19 [History] Labetalol HCl 400 mg PO BID 11/15/19 [History] amLODIPine [Norvasc] 5 mg PO BID 11/15/19 [History] calcitrioL [Rocaltrol] 0.25 mcg PO SUTUTHSA 03/03/20 [History] Ergocalciferol [Vitamin D2 (DRISDOL)] 50,000 unit PO WE 05/02/20 [History] Niacinamide 500 mg PO BID-W/MEALS 10/23/20 [History] Acetaminophen Tab [Tylenol] 1,000 mg PO Q6HR PRN 02/09/22 [History] Albuterol Nebulized [Ventolin Nebulized] 2.5 mg INHALATION RT-Q6H PRN 02/09/22 [History] Albuterol Sulfate [Proair Hfa] 1 - 2 puff INHALATION RT-Q6H PRN 02/09/22 [History] Famotidine 20 mg PO DAILY 02/09/22 [History] Magnesium Oxide 400 mg PO DAILY 02/09/22 [History] Cephalexin [Keflex] 500 mg PO Q8HR 7 Days #21 cap 02/12/22 [Rx] Tacrolimus [Prograf] 0.5 mg PO BID 30 Days #60 cap 02/13/22 [Rx] Torsemide [Demadex] 10 mg PO Q48H #0 02/13/22 [Rx] hydrALAZINE HCL [Apresoline] 50 mg PO TID #90 tab 02/13/22 [Rx] Follow up Appointment(s)/Referral(s): Sujit Cartagena MD [Primary Care Provider] - 1-2 days Jeremiah Adhikari DO [STAFF PHYSICIAN] - 1 Week Ambulatory/Diagnostic Orders: Comprehensive Metabolic Panel [LAB.AMB] Time Frame: 3 Days, Location: None Selected Patient Instructions/Handouts: Cellulitis (GEN), Scrotal Pain (GEN) Activity/Diet/Wound Care/Special Instructions: Activity Limited until follow-up Follow-up with primary care provider on discharge Continue taking medications as prescribed Continue to monitor blood pressure and keep a diary Recommend follow-up with nephrology in one week Continue taking antibiotics until finished Resume torsemide 20 mg every other day Repeat labs in 2-3 days to monitor kidney functions and electrolytes Monitor closely any weight gain or loss and notify nephrology Discharge Disposition: HOME SELF-CARE
== END 2022-02-13 13:27 | disposition home or self-care (01) | DRG 727 ==
LOC: EC 11:40 → 6NMEDSUR 15:06 → OBSVTOIN 02-12 10:26
PROVIDERS: ADMIT Internal Medicine; ATTEND Internal Medicine
DX: N49.2 Inflammatory disorders of scrotum (principal); N17.0 Acute kidney failure with tubular necrosis; D84.9 Immunodeficiency, unspecified; E87.2 Acidosis; I13.0 Hypertensive heart and chronic kidney disease with heart failure and stage 1 through stage 4 chronic kidney disease, or unspecified chronic kidney disease; I50.32 Chronic diastolic (congestive) heart failure; J44.1 Chronic obstructive pulmonary disease with (acute) exacerbation; Z94.83 Pancreas transplant status; Z79.899 Other long term (current) drug therapy; T45.1X5A Adverse effect of antineoplastic and immunosuppressive drugs, initial encounter; M19.90 Unspecified osteoarthritis, unspecified site; E11.22 Type 2 diabetes mellitus with diabetic chronic kidney disease; E11.319 Type 2 diabetes mellitus with unspecified diabetic retinopathy without macular edema; E11.610 Type 2 diabetes mellitus with diabetic neuropathic arthropathy; E78.5 Hyperlipidemia, unspecified; E83.42 Hypomagnesemia; I48.91 Unspecified atrial fibrillation; I86.1 Scrotal varices; M89.8X9 Other specified disorders of bone, unspecified site; N18.32 Chronic kidney disease, stage 3b; N48.89 Other specified disorders of penis; Z79.01 Long term (current) use of anticoagulants; Z79.52 Long term (current) use of systemic steroids; Z85.828 Personal history of other malignant neoplasm of skin; Z98.42 Cataract extraction status, left eye; Z98.41 Cataract extraction status, right eye; Z96.1 Presence of intraocular lens; X58.XXXA Exposure to other specified factors, initial encounter; Z91.041 Radiographic dye allergy status
CPT/HCPCS: 36415; 51798; 76870; 80048; 80053; 80197; 81001; 82565; 83735; 85025; 87040; 87070; 87205; 93005; 93975; 96365; 96375; 96376; 99284

== ENCOUNTER 2022-04-19 10:17 | Day surgery (SDC) | payer MEDICARE ==
[2022-04-17 14:56] VITALS: BMI 23.5
[~2022-04-19 10:17] MED LIST changes: -DEXAMETHASONE SOD PHOSPHATE 4 MG/ML 1 ML VIAL IV ONE; -HYDROmorphone 0.5 MG/0.5 ML SYRINGE IVP PRN; -LACTATED RINGERS 1,000 ML IV SCH; -LIDOCAINE 1% (10MG/ML) FOR IV START INTRADERMA PRN; -MIDAZOLAM 2 MG/2 ML VIAL IV PRN; -ONDANSETRON 4 MG/2 ML VIAL IVP ONE; +SODIUM CHLORIDE 0.9% 1,000 ML IV SCH
[2022-04-19] MEDS ORDERED: SODIUM CHLORIDE 0.9% 500 ML 500 ML IV ONE (11:03)
[2022-04-19 11:06] VITALS: RESP 16; TEMP 98.2
[2022-04-19 11:32] LABS: Calcium 9.2 mg/dL (8.4-10.2); Potassium 4.1 mmol/L (3.5-5.1)
[2022-04-19] MEDS ORDERED: LIDOCAINE 2% INJ 20 MG/ML (2 ML VIAL) ONE (13:00)
[2022-04-19] MEDS ORDERED: PROPOFOL 10 MG/ML 20 ML VIAL IV ONE (13:00)
[2022-04-19] MEDS ORDERED: SODIUM CHLORIDE 0.9% 1,000 ML IV ONE (13:28)
--- NOTE | 2022-04-19 13:29 | P.PCN ---
Date of Procedure: 04/19/22 Description of Procedure: Indication: Atrial fibrillation Procedure Description: After explaining the procedure to the patient, it's risk and complications, blood pressure, heart rate and O2 saturation were monitored. The throat was sprayed with Cetacaine. Patient received sedation per anesthesia department. The probe was introduced into the esophagus without difficulty. Images were obtained. Following that, the probe was removed. There was no immediate complication. Findings: Left atrial size is mildly dilated, left atrial appendage is normal. Left ventricle size and systolic function are normal. The aortic valve revealed fibrocalcific changes of the aortic cusps with preserved opening. Mitral annulus calcification and thickening of the mitral valve leaflets was noted. Tricuspid valve is normal. Descending thoracic aorta appears to be normal. No pericardial effusion was noted. Contrast bubble study revealed no shunting across the intra-atrial septum Doppler: Pulse wave and color Doppler were obtained, mild mitral with moderate tricuspid regurgitation, there was no shunting across the intra-atrial septum Conclusion: 1. Dilated left atrium with normal appearance of the left atrial appendage 2. Normal in size and systolic function 3. Mitral annulus calcification 4. With mild mitral was moderate tricuspid regurgitation and no evidence of pulmonary hypertension 5. No shunting across the intra-atrial septum
[2022-04-19] MEDS ORDERED: SODIUM CHLORIDE 0.9% 1,000 ML IV SCH (13:30)
--- NOTE | 2022-04-19 13:30 | P.PCN ---
Date of Procedure: 04/19/22 Description of Procedure: Cardioversion: Indication: Atrial fibrillation Procedure: After explaining the procedure to the patient as well as the risks and the complications, after obtaining sedated state per anesthesia department and performing HENRY synchronized biphasic cardioversion using 120 J was performed with mandaeism of sinus mechanism, there was no immediate complications.
[2022-04-19 16:05] VITALS: BP 147/70; PULSE 90
[2022-04-19] MEDS ORDERED: LABETALOL 200 MG TAB PO SCH (21:00)
[2022-04-19] MEDS ORDERED: PRAVASTATIN SODIUM 20 MG TAB PO SCH (21:00)
[2022-04-19] MEDS ORDERED: APIXABAN 5 MG TAB PO SCH (21:00)
[2022-04-19] MEDS ORDERED: hydrALAZINE HCL 50 MG TAB PO SCH (21:00)
== END 2022-04-19 15:10 | disposition home or self-care (01) ==
LOC: CATHCVL 10:17
PROVIDERS: ATTEND Internal Medicine Interventional Cardiology
DX: I48.11 Longstanding persistent atrial fibrillation (principal); I34.81 Nonrheumatic mitral (valve) annulus calcification; I07.1 Rheumatic tricuspid insufficiency; E78.5 Hyperlipidemia, unspecified; I11.9 Hypertensive heart disease without heart failure; E11.9 Type 2 diabetes mellitus without complications; G47.33 Obstructive sleep apnea (adult) (pediatric); F17.210 Nicotine dependence, cigarettes, uncomplicated; Z82.49 Family history of ischemic heart disease and other diseases of the circulatory system; J44.9 Chronic obstructive pulmonary disease, unspecified; M19.90 Unspecified osteoarthritis, unspecified site; Z96.60 Presence of unspecified orthopedic joint implant
CPT/HCPCS: 93312; 93320; 93325; 92960; 80048; J2704; J2001

== ENCOUNTER → 2022-04-26 | Outpatient (CLI) | payer MEDICARE ==
--- NOTE | 2022-04-26 14:17 | CT ---
EXAMINATION TYPE: CT neck chest without con CT DLP: 702.2 mGycm, Automated exposure control for dose reduction was used. DATE OF EXAM: 04/26/2022 1:55 PM COMPARISON: PET CT 10/20/2021, CT soft tissue neck 05/01/2021. CLINICAL INDICATION:Male, 56 years old with history of J44.9 Chronic obstructive pulmonary disease; P HH, COPD. History of neck cancer. TECHNIQUE: Standard enhanced CT of the neck and chest following the administration of intravenous con trast. Axial sections with coronal and sagittal reformats were obtained. FINDINGS: Evaluation is limited due to lack of intravenous contrast. Brain: Visualized portions are grossly unremarkable. Orbits: The ocular lenses are surgically absent. Sinuses: Grossly unremarkable. Spaces of the neck: Postsurgical clips are seen within the left aspect of the neck. The torus tubariu s and fossa of Rosenmuller are normal. Overseamer spaces are normal. Right parotid gland is unremarka ble. Left parotid gland is surgical absent. The right submandibular gland is unremarkable. The left s ubmandibular gland is not well visualized. Parapharyngeal spaces are normal and stable. Musculoskeletal: No aggressive osseous lesion. Spina bifida occulta of C1 is again present. Lymph nodes: No suspicious adenopathy.. Vascular structures: Moderate atherosclerotic calcifications of the internal carotid arteries. Airway: Airway is patent. The lung apices are clear. Soft tissues/Thyroid: Thyroid and remainder of the soft tissues are unremarkable. LUNGS/ PLEURA: No pneumothorax, pleural effusion, or focal consolidation. Stable right upper lobe 4mm pulmonary nodule (series 6, image 21). Centrilobular emphysematous changes. AIRWAY: Patent and unremarkable.. HEART: Sable cardiomegaly. No pericardial effusion. Moderate coronary arterial calcifications. MEDIASTINUM: Stable prominent mediastinal lymph nodes with largest measuring up to 1.1 cm short axis (series 5, image 18). VASCULATURE: No aortic aneurysm. Atherosclerotic calcification of the aorta. Dilated main pulmonary measuring up to 5.6 cm which can be seen in the setting of pulmonary arterial hypertension. MUSCULOSKELETAL: No acute osseous abnormalities. No aggressive osseous lesions. SOFT TISSUES/LYMPH NODES: No axillary adenopathy. Bilateral gynecomastia. LOWER NECK: No significant findings. UPPER ABDOMEN: Small hiatal hernia. IMPRESSION 1. No suspicious changes to suggest recurrent mass. 2. Postsurgical changes through the left neck appear stable. 3. Stable right upper lobe form or pulmonary nodule. 4. Stable prominent mediastinal lymph nodes.
== END | disposition home or self-care (01) ==
LOC: RADCTMAIN 13:23
PROVIDERS: ATTEND Radiology Radiation Oncology
DX: J44.9 Chronic obstructive pulmonary disease, unspecified (principal); R91.1 Solitary pulmonary nodule; R59.0 Localized enlarged lymph nodes; Z85.21 Personal history of malignant neoplasm of larynx
CPT/HCPCS: 70490; 71250

== ENCOUNTER → 2023-01-24 | Outpatient (CLI) | payer MEDICARE ==
--- NOTE | 2023-01-24 11:17 | CT ---
EXAMINATION TYPE: CT neck chest without con DATE OF EXAM: 01/24/2023 COMPARISON: 04/26/2022 HISTORY: Squamous cell carcinoma CT DLP: 667.80 mGycm Automated exposure control for dose reduction was used. Contrast: None Technique: Axial images 5 mm thick sections through the chest and 3 mm thick sections through the nec k. Reconstructed images in the coronal and sagittal planes. FINDINGS: Detail Sergeant spaces appear normal. Torus tubarius and fossa of Rosenmuller are normal. Parapharyngeal s paces are unremarkable. There are surgical clips to the left parotid region. Right parotid gland appe ars normal. Scattered small submandibular lymph nodes are present on the right. Submandibular gland o n the right is normal. Left submandibular gland is absent. Submental space is normal. Tonsillar pillars appear unremarkable. Subglottic airway is unremarkable. No supraclavicular adenopathy is evident. Left supraclavicular nikhil gical clips are present. Portion of the thyroid visualized is normal. Findings appear stable from [facility]. CT chest: Lung saxena appear clear. Multiple scattered shotty lymph nodes are present through the med iastinum. The ascending thoracic aorta at the level of the main pulmonary artery is 3.0 cm. Main pulm onary artery at the bifurcation is 3.9 cm. Correlate for pulmonary hypertension. Coronary artery calcifications present. Some mild cardiomegaly is present. Limited CT sections obtain ed through the upper abdomen are unremarkable. IMPRESSION: 1. POSTSURGICAL LEFT NECK CHANGES. NO SUSPICIOUS RECURRENT MASS IS EVIDENT. 2. CARDIOMEGALY WITH CORONARY VESSEL CALCIFICATION. 3. NO ACUTE INTRATHORACIC PROCESS. NO SUSPICIOUS CHANGES TO SUGGEST RECURRENT OR METASTATIC DISEASE.
== END | disposition home or self-care (01) ==
LOC: RADCTMAIN 08:57
PROVIDERS: ATTEND Radiology Radiation Oncology
DX: C44.42 Squamous cell carcinoma of skin of scalp and neck (principal); C77.0 Secondary and unspecified malignant neoplasm of lymph nodes of head, face and neck; J44.9 Chronic obstructive pulmonary disease, unspecified; I25.10 Atherosclerotic heart disease of native coronary artery without angina pectoris; Z92.3 Personal history of irradiation; Z98.890 Other specified postprocedural states; Z85.828 Personal history of other malignant neoplasm of skin
CPT/HCPCS: 70490; 71250

== ENCOUNTER 2023-04-11 05:50 | Day surgery (SDC) | payer MEDICARE ==
[2023-04-11] MEDS ORDERED: HEPARIN SODIUM,PORCINE 10,000 UNIT in SODIUM CHLORIDE 0.9% 1,000 ML IRRIGATION PRN (05:58)
[2023-04-11] MEDS ORDERED: HEPARIN SODIUM,PORCINE (1 ML) 2,500 UNIT in SODIUM CHLORIDE 0.9% 250 ML IRRIGATION PRN (05:58)
[2023-04-11] MEDS ORDERED: ALPRAZolam 0.25 MG TAB PO PRN (05:58)
[2023-04-11] MEDS ORDERED: ALPRAZolam 0.5 MG TAB PO PRN (05:58)
[2023-04-11] MEDS ORDERED: NITROGLYCERIN SL TABS 0.4 MG TAB SUBLINGUAL PRN ×2 (05:58→09:53)
[2023-04-11] MEDS ORDERED: ASPIRIN 325 MG TAB PO STA (05:58)
[2023-04-11] MEDS ORDERED: SODIUM CHLORIDE 0.9% 1,000 ML in EMPTY BAG 1 BAG IV SCH ×2 (06:00→10:00)
[2023-04-11 07:03] LABS: Basophils % (A) 0 %; Eosinophils % (A) 0 %; HGB 9.9 gm/dL (13.0-17.5); Lymphocytes # (A) 0.2 k/uL (1.0-4.8); Lymphocytes % (A) 3 %; MCH 32.9 pg (25.0-35.0); MCHC 34.1 g/dL (31.0-37.0); MCV 96.3 fL (80.0-100.0); Mean Platelet Volume 7.9; Monocytes # (A) 0.2 k/uL (0-1.0); Monocytes % (A) 3 %; Neutrophils % (A) 93 %; Platelet Count 146 k/uL (150-450); RBC 3.01 m/uL (4.30-5.90); RDW 15.6 % (11.5-15.5); WBC 5.3 k/uL (3.8-10.6)
[2023-04-11 07:15] LABS: African American GFR (CKD) 27 (>60 ml/min/1.73 sqM); Anion Gap 14 mmol/L; Blood Urea Nitrogen 46 mg/dL (9-20); Calcium 10.3 mg/dL (8.4-10.2); Carbon Dioxide 18 mmol/L (22-30); Chloride 99 mmol/L (98-107); Glucose 184 mg/dL (74-99); Non-African American GFR(CKD) 23 (>60 ml/min/1.73 sqM); Potassium 5.2 mmol/L (3.5-5.1); Sodium 131 mmol/L (137-145)
[2023-04-11] MEDS ORDERED: VERAPAMIL 2.5 MG/ML 2 ML AMP ONE (07:26)
[2023-04-11] MEDS ORDERED: fentaNYL (PF) 50 MCG/ML 2 ML AMP ONE (07:26)
[2023-04-11] MEDS ORDERED: LIDOCAINE 1% INJ 10MG/ML (20 ML MDV) ONE (07:26)
[2023-04-11] MEDS ORDERED: HEPARIN SODIUM 1,000 UN/ML (10ML VL) ONE ×2 (07:35→08:25)
[2023-04-11] MEDS: fentaNYL (PF) 50 MCG/ML 2 ML AMP IVP ONE ×2 (07:36→09:01)
[2023-04-11] MEDS ORDERED: LIDOCAINE 1% INJ 10MG/ML (5 ML VIAL-PF) SQ ONE (07:37)
[2023-04-11] MEDS ORDERED: VERAPAMIL SYRINGE (5 MG/10 ML) INTRAARTER ONE (07:38)
[2023-04-11] MEDS: HEPARIN SODIUM 1,000 UN/ML (10ML VL) IV ONE ×4 (07:48→09:45)
[2023-04-11] MEDS ORDERED: CLOPIDOGREL 75 MG TAB ONE (07:53)
[2023-04-11] MEDS ORDERED: CLOPIDOGREL 75 MG TAB PO ONE (07:55)
[2023-04-11] MEDS ORDERED: MIDAZOLAM 2 MG/2 ML VIAL IVP ONE (08:23)
[2023-04-11] MEDS ORDERED: IOPAMIDOL-370 200ML BTL INJ ONE (09:42)
[2023-04-11] MEDS ORDERED: ATROPINE SULFATE 0.1 MG/ML 10ML SYRINGE IV PRN (09:53)
[2023-04-11] MEDS ORDERED: ZOLPIDEM 5 MG TAB PO PRN (09:53)
[2023-04-11] MEDS ORDERED: RX INFO: IV CONTRAST WAS GIVEN 1 EACH MISC MISCELLANE PRN (09:53)
[2023-04-11] MEDS ORDERED: MAG HYDROX/AL HYDROX/SIMETH 30 ML CUP PO PRN (09:53)
[2023-04-11] MEDS ORDERED: ACETAMINOPHEN TAB 325 MG TAB ONE (10:58)
[2023-04-11] MEDS ORDERED: ACETAMINOPHEN TAB 325 MG TAB PO PRN (11:19)
[2023-04-11] MEDS ORDERED: fentaNYL (PF) 50 MCG/ML 2 ML AMP IVP ONE (11:19)
--- NOTE | 2023-04-11 12:58 | P.CARDCATH ---
Date of Procedure: 04/11/23 Description of Procedure: Cardiac Catheterization: The patient is a 57-year-old male with a known history of hypertension, hyperlipidemia, post renal transplant who has been complaining of progressive dyspnea and episodes of CHF. He had an abnormal MPI. After discussion is his clinical care coordinator the decision was made regarding proceeding with coronary angiography. Recommendations were made regarding cardiac catheterization, the risks and the complications were discussed with the patient who is in full unde rstanding and agreement. Procedure Description: Patient was brought to shift lab technician in fasting semi-sedated state after receiving Fentanyl and Benadryl achieiving moderate conscious sedated state. Using Xylocaine Anesthesia and modified Seldinger technique, a 6-[place]an sheath was introduced in the left radial artery . Subsequently, selective coronary angiography was performed using a 5-[place]an 4 bend Luz Elena catheter. Multiple views of the coronary artery including hemiaxial views were obtained. The 5-[place] pigtail catheter was used to cross the aortic valve and LVEDP was calculated. PCI: After removing the catheters a 6-[place]an EBU 3.75 guiding catheter was introduced in the system and after cannulating the left main a 0.014 BMW J-wire was positioned in the distal OM1. Attempt to advance a 2.5 x 12 mm Treck were unsuccessful. The balloon was removed and a 1.0 x 8 mm Sapphire balloon was advanced and multiple inflations were done at 10 akua. After removing the balloon a guideliner was introduced and in spite of the guide liner there was inability to advance the 2.5 x 12 mm. At that time 2.0 x 12 mm Treck was advanced and inflation at 10 akua were done, the balloon was exchanged to a 2.5 x 12 and subsequently a 2.5 x 12 mm NC Treck balloon and then a 3.0 x 12 mm NC Treck. Multiple inflations were done to his marginal branch. Subsequently a 3.0 x 8 mm Xience yara point was deployed at 16 akua and then another 3.0 x 23 mm Xience yara point was deployed proximal to the first one at 16 akua. After removing the balloon 3.25 x 12 mm NC Treck was advanced and inflations at 14 akua were done. After the last inflation the balloon and the wire were removed and images were obtained. Following that, catheter and sheath were removed. Hemostasis was obtained with deployment of vascular band . There was no immediate complication. Patient was returned to room in stable condition. Of note, the patient received a total of 10,000 units of intravenous heparin as well as intra-arterial verapamil. He received an oral loading dose of clopidogrel. His ACT was monitored. He had no EKG changes or chest discomfort with the inflations. Findings: Fluoroscopy: Calcifications of the coronary arteries was noted. Left main: This is a large size vessel, bifurcating into left circumflex and LAD, the left main has no obstructive disease LAD: This is a large size vessel, reaching the apex with a wrap around the apex segment, the LAD has no evidence of high-grade stenosis Left circumflex: This is a nondominant large size vessel giving rise to a very large proximal OM the second and third OM are smaller in caliber. The first obtuse marginal branch has a long area of stenosis up to 99% with an area of ulceration. The distal vessel has no high-grade stenosis RCA: This is a large dominant vessel bifurcating into PDA and PLV, the right coronary artery has mild disease in the midsegment of 2030%. There is an 85% stenosis in the proximal acute marginal branch. Left Ventriculogram: Not performed Hemodynamics: There was no gradient across the aortic valve, LVEDP was 6-10 mmHg Conclusion: 1. Calcified coronary arteries 2. Severe stenosis in the first of his marginal branch in a long segment 3. Mild disease in the LAD 4. Mild disease in the RCA with significant disease in the acute marginal branch 5. Successful stenting of the OM1 with reduction of stenosis from 99% to less than 5% Recommendations: The patient will continue on aspirin and Plavix for 1 week and then continue on Plavix and anticoagulation for 6 months, he will continue aggressive coronary risks modifications with attempt to maintain LDL below 70 mg/dL. The findings and the recommendations were discussed with the patient and the family and they were in full understanding and agreement. Duration of sedation is 128 minutes.
[2023-04-11] MEDS: SODIUM BICARBONATE TAB 650 MG TAB PO SCH ×2 (14:26→21:15)
[2023-04-11 14:34] LABS: Glucose,Whole Blood 228 mg/dL (70-110)
[2023-04-11] MEDS ORDERED: DEXTROSE 50% SYRINGE 50 ML IVP PRN ×2 (14:36)
[2023-04-11 16:35] LABS: Glucose,Whole Blood 167 mg/dL (70-110)
[2023-04-11 20:27] LABS: Glucose,Whole Blood 202 mg/dL (70-110)
[2023-04-11] MEDS: INSULIN ASPART (NovoLOG) 100 UNIT/ML VIAL SQ SCH ×2 (20:57→21:09)
[2023-04-11] MEDS: amLODIPine 5 MG TAB PO SCH (21:09)
[2023-04-11] MEDS: hydrALAZINE HCL 50 MG TAB PO SCH (21:09)
[2023-04-11] MEDS: LABETALOL 200 MG TAB PO SCH (21:10)
[2023-04-11] MEDS: TACROLIMUS 0.5 MG CAP PO SCH (21:17)
[2023-04-12] MEDS ORDERED: SODIUM CHLORIDE 0.9% 1,000 ML IV SCH (01:30)
[2023-04-12 02:14] LABS: Mucus,Urine Rare /hpf; WBC,Urine 2 /hpf (0-5)
[2023-04-12 02:39] LABS: Appearance,Urine Clear (Clear); Color,Urine Dark Brown
[2023-04-12 03:16] LABS: African American GFR (CKD) 23 (>60 ml/min/1.73 sqM); Anion Gap 12 mmol/L; Blood Urea Nitrogen 58 mg/dL (9-20); Calcium 9.5 mg/dL (8.4-10.2); Carbon Dioxide 18 mmol/L (22-30); Chloride 102 mmol/L (98-107); Creatine Kinase 109 U/L (55-170); Glucose 159 mg/dL (74-99); Non-African American GFR(CKD) 19 (>60 ml/min/1.73 sqM); Potassium 5.3 mmol/L (3.5-5.1); Sodium 132 mmol/L (137-145)
[2023-04-12 06:12] LABS: Glucose,Whole Blood 178 mg/dL (70-110)
[2023-04-12] MEDS: INSULIN ASPART (NovoLOG) 100 UNIT/ML VIAL SQ SCH (06:26)
--- NOTE | 2023-04-12 07:26 | P.PN ---
Subjective Progress Note Date: 04/12/23 PROGRESS NOTE The patient is a 57-year-old male with a known history of renal transplant, paroxysmal atrial fibrillation, hypertension and hyperlipidemia who presented with symptoms of progressive dyspnea and had an abnormal MPI. His case was discussed with him and his truck service technician. He was in agreement to proceed with coronary angiography. His current angiography revealed severe stenosis involving a large obtuse marginal and underwent stenting of that vessel. He's feeling well this morning, denies any chest discomfort or dyspnea but has back pain and hip pain which is chronic. He denies any nausea or vomiting. He is in sinus mechanism. Medications: Aspirin 81 mg daily, amlodipine 5 mg twice a day, Lipitor 80 mg daily, Celexa, Plavix 75 mg daily, Lipitor 80 mg daily, hydralazine 50 mg twice a day, insulin, prednisone 5 mg daily, labetalol 400 mg twice a day, Prograf PHYSICAL EXAMINATION: Blood pressure 136/70 heart rate 80 LUNGS: Clear to auscultation HEART: Regular rate and rhythm, S1, S2. No S3. Systolic ejection murmur ABDOMEN: Soft, nontender, no organomegaly EXTREMETIES: No edema, left radial pulse intact. Chronic ecchymosis noted. LAB: Potassium 5.3, BUN 58, creatinine 3.29 IMPRESSION: 1. Status post stenting of the left circumflex obtuse marginal branch 2. History of hypertension 3. History of diabetes 4. Chronic kidney disease status post renal transplant 5. History of hyperlipidemia PLAN: 1. Increase physical activity 2. Hold diuretics 3. Restart anticoagulation and continue dual antiplatelets treatment for one week then stop aspirin 4. Follow renal functions as an outpatient 5. If stable probable discharge home today. Objective - Vital Signs Vital signs: Vital Signs Temp 98.1 F 04/12/23 04:00 Pulse 80 04/12/23 04:00 Resp 17 04/12/23 04:00 BP 136/70 04/12/23 04:00 Pulse Ox 98 04/12/23 04:00 FiO2 Intake & Output 04/11/23 04/12/23 04/12/23 18:59 06:59 18:59 Intake Total 250 Output Total 400 500 Balance -150 -500 Weight 69 kg Intake: IV 250 Output: Urine 400 500 Other: Voiding Method Urinal - Labs CBC & Chem 7: 04/11/23 06:45 04/12/23 02:21 Labs: Abnormal Lab Results - Last 24 Hours (Table) 04/11/23 04/11/23 04/11/23 Range/Units 14:33 16:33 20:25 Sodium (137-145) mmol/L Potassium (3.5-5.1) mmol/L Carbon Dioxide (22-30) mmol/L BUN (9-20) mg/dL Creatinine (0.66-1.25) mg/dL Glucose (74-99) mg/dL POC Glucose (mg/dL) 228 H 167 H 202 H (70-110) mg/dL Urine Mucus (None) /hpf 04/12/23 04/12/23 04/12/23 Range/Units 01:00 02:21 06:10 Sodium 132 L (137-145) mmol/L Potassium 5.3 H (3.5-5.1) mmol/L Carbon Dioxide 18 L (22-30) mmol/L BUN 58 H (9-20) mg/dL Creatinine 3.29 H (0.66-1.25) mg/dL Glucose 159 H (74-99) mg/dL POC Glucose (mg/dL) 178 H (70-110) mg/dL Urine Mucus Rare H (None) /hpf
[2023-04-12 08:02] VITALS: RESP 16; TEMP 97.9
[2023-04-12 08:29] LABS: African American GFR (CKD) 23 (>60 ml/min/1.73 sqM); Non-African American GFR(CKD) 20 (>60 ml/min/1.73 sqM)
[2023-04-12] MEDS ORDERED: FERROUS SULFATE 325 MG TAB PO SCH (09:00)
[2023-04-12] MEDS ORDERED: CITALOPRAM HYDROBROMIDE 10 MG TAB PO SCH (09:00)
[2023-04-12] MEDS ORDERED: ASPIRIN 81 MG PO SCH (09:00)
[2023-04-12] MEDS ORDERED: predniSONE 5 MG TAB PO SCH (09:00)
[2023-04-12] MEDS ORDERED: FAMOTIDINE 20 MG TAB PO SCH (09:00)
[2023-04-12] MEDS ORDERED: CLOPIDOGREL 75 MG TAB PO SCH (09:00)
[2023-04-12] MEDS ORDERED: allopurinoL 100 MG TAB PO SCH (09:00)
[2023-04-12] MEDS ORDERED: ATORVASTATIN 80 MG TAB PO SCH (09:00)
[2023-04-12] MEDS ORDERED: MAGNESIUM OXIDE 400 MG TAB PO SCH (09:00)
[2023-04-12] MEDS: TACROLIMUS 0.5 MG CAP PO SCH (09:25)
[2023-04-12] MEDS: hydrALAZINE HCL 50 MG TAB PO SCH (09:26)
[2023-04-12] MEDS: amLODIPine 5 MG TAB PO SCH (09:26)
[2023-04-12] MEDS: LABETALOL 200 MG TAB PO SCH (09:26)
[2023-04-12] MEDS: SODIUM BICARBONATE TAB 650 MG TAB PO SCH (09:26)
[2023-04-12 10:30] VITALS: BMI 23.8
[2023-04-12 12:07] LABS: Glucose,Whole Blood 166 mg/dL (70-110)
[2023-04-12 12:57] VITALS: BP 126/76; PULSE 72
== END 2023-04-12 16:03 | disposition home or self-care (01) ==
LOC: CATHCVL 05:50 → 3SCARD 09:45 → CATHCVL 04-12 16:03
PROVIDERS: ATTEND Internal Medicine Interventional Cardiology
DX: I25.10 Atherosclerotic heart disease of native coronary artery without angina pectoris (principal); I48.0 Paroxysmal atrial fibrillation; I12.9 Hypertensive chronic kidney disease with stage 1 through stage 4 chronic kidney disease, or unspecified chronic kidney disease; E11.22 Type 2 diabetes mellitus with diabetic chronic kidney disease; N18.9 Chronic kidney disease, unspecified; G89.29 Other chronic pain; E78.5 Hyperlipidemia, unspecified; Z79.02 Long term (current) use of antithrombotics/antiplatelets; Z79.4 Long term (current) use of insulin; Z79.52 Long term (current) use of systemic steroids; Z79.621 Long term (current) use of calcineurin inhibitor; Z79.82 Long term (current) use of aspirin; Z79.899 Other long term (current) drug therapy; Z94.0 Kidney transplant status; Z95.5 Presence of coronary angioplasty implant and graft
CPT/HCPCS: 93458; 80048 ×2; 82565; 82550; 85025; 81001; C9600; C1769 ×3; C1887 ×2; C1894; C1725 ×9; C1874 ×2; J2250; J2001; J3010; J1644; J7512; Q9967

== ENCOUNTER 2023-04-13 03:25 | Inpatient (IN) | payer MEDICARE ==
--- NOTE | 2023-04-13 04:18 | ED ---
General Adult HPI - General Chief complaint: Weakness Stated complaint: Weakness Time Seen by Provider: 04/13/23 03:33 Source: patient, EMS, RN notes reviewed, old records reviewed Mode of arrival: EMS Limitations: no limitations - History of Present Illness Initial comments: 57-year-old male recently discharged from the hospital within the past 12 hours. Patient had increased weakness and there is concern about how well the patient will be able to manage at home. He did have stents placed according to family and cyclic and has significant past medical history. He denies chest pain. He states that his dyspnea is at baseline and wears between 2 and 4 L of home oxygen. No fever. No vomiting. Patient has history of kidney pancreas transplant in the year 1999. He had recent cardiac stenting. He's had worsening kidney function and chronic anemia. - Related Data Home Medications Medication Instructions Recorded Confirmed Sodium Bicarbonate Tab 1,300 mg PO TID 11/23/13 04/10/23 Apixaban [Eliquis] 2.5 mg PO BID 09/18/18 04/11/23 Ferrous Sulfate [Iron (65 MG 325 mg PO DAILY 12/17/18 04/10/23 Elemental)] Montelukast [Singulair] 10 mg PO HS 12/17/18 04/10/23 allopurinoL [Zyloprim] 100 mg PO DAILY 12/17/18 04/10/23 calcitrioL [Rocaltrol] 0.5 mcg PO MOWEFR 12/17/18 04/10/23 predniSONE 5 mg PO DAILY 03/09/19 04/10/23 Labetalol HCl 400 mg PO BID 11/15/19 04/10/23 amLODIPine [Norvasc] 5 mg PO BID 11/15/19 04/10/23 calcitrioL [Rocaltrol] 0.25 mcg PO SUTUTHSA 03/03/20 04/10/23 Niacinamide 500 mg PO BID-W/MEALS 10/23/20 04/10/23 Famotidine 20 mg PO DAILY 02/09/22 04/10/23 hydrALAZINE HCL [Apresoline] 50 mg PO BID 04/17/22 04/10/23 Citalopram Hydrobromide 10 mg PO DAILY 10/18/22 04/10/23 [Citalopram HBr] Magnesium Oxide [Mag-Oxide] 240 mg PO DAILY 04/10/23 04/10/23 Torsemide [Demadex] 40 mg PO DAILY 04/10/23 04/10/23 Previous Rx's Medication Instructions Recorded Tacrolimus [Prograf] 0.5 mg PO BID 30 Days #60 cap 02/13/22 Aspirin 81 mg PO DAILY tab 04/12/23 Atorvastatin [Lipitor] 80 mg PO DAILY #90 tab 04/12/23 Clopidogrel [Plavix] 75 mg PO DAILY #90 tab 04/12/23 Nitroglycerin Sl Tabs [Nitrostat] 0.4 mg SUBLINGUAL Q5M PRN #25 tab 04/12/23 Allergies Allergy/AdvReac Type Severity Reaction Status Date / Time Iodine and Iodide Containing AdvReac HX OF Verified 04/11/23 06:50 Produc KIDNEY DISEASE Review of Systems ROS Statement: Those systems with pertinent positive or pertinent negative responses have been documented in the HPI. ROS Other: All systems not noted in ROS Statement are negative. Past Medical History Past Medical History: Cancer, Heart Failure, COPD, Diabetes Mellitus, Hyperlipidemia, Hypertension, Osteoarthritis (OA), Prostate Disorder, Renal Disease, Sleep Apnea/CPAP/BIPAP Additional Past Medical History / Comment(s): ARDS, hx of DM was tx for dm from age 9- 35, had pancreas transplant), uses cpap machine, basal/squamous cell skin cancer, cancer on neck received surg & radiation on neck 02/2020. hx rt elbow broken-(sx), charcots foot, pancreatitis, bladder leakage, Kidney transplant. History of Any Multi-Drug Resistant Organisms: None Reported Past Surgical History: Hernia Repair, Joint Replacement Additional Past Surgical History / Comment(s): 2 kidney and 1 pancreas transplant, L knee replacment, rt elbow sx has 7 screws,cataracts removed-lens implants, laser eye sx for retinopathy, fernando foot sx, skin cancer removed on his head, neck surgery for cancer. Past Anesthesia/Blood Transfusion Reactions: No Reported Reaction Smoking Status: Never smoker - Past Family History Mother Family Medical History: Cancer, Diabetes Mellitus Father Family Medical History: CVA/TIA Additional Family Medical History / Comment(s): was smoker had stroke in his 30's General Exam Limitations: no limitations General appearance: alert, in no apparent distress Head exam: Present: atraumatic, normocephalic Eye exam: Present: normal appearance, PERRL ENT exam: Present: normal exam Neck exam: Present: normal inspection. Absent: tenderness, meningismus Respiratory exam: Present: decreased breath sounds. Absent: respiratory distress, wheezes Cardiovascular Exam: Present: regular rate, normal rhythm GI/Abdominal exam: Present: soft. Absent: distended, tenderness Extremities exam: Absent: pedal edema Neurological exam: Present: alert. Absent: motor sensory deficit Skin exam: Present: warm, dry, intact Course Vital Signs 04/13/23 04/13/23 03:39 06:16 Pulse Rate 74 71 Respiratory 18 Rate Blood Pressure 117/68 125/71 O2 Sat by Pulse 93 L 96 Oximetry - Reevaluation(s) Reevaluation #1: 04/13/23 06:36 Patient's son and are requesting possible hospice evaluation. Medical Decision Making - Medical Decision Making Was pt. sent in by a medical professional or institution (, PA, SAND CUTTER OPERATOR, urgent care, hospital, or half-way...) When possible be specific @ -No Did you speak to anyone other than the patient for history (EMS, parent, family, police, friend...)? What history was obtained from this source @Patient's son and Did you review nursing and triage notes (agree or disagree)? Why? @ -I reviewed and agree with nursing and triage notes Were old charts reviewed (outside hosp., previous admission, EMS record, old EKG, old radiological studies, urgent care reports/EKG's, half-way records)? Report findings @ -No old charts were reviewed Differential Diagnosis (chest pain, altered mental status, abdominal pain women, abdominal pain men, vaginal bleeding, weakness, fever, dyspnea, syncope, headache, dizziness, GI bleed, back pain, seizure, CVA, palpatations, mental health, musculoskeletal)? @ -Differential Weakness: Hypoglycemia, shock, sepsis, hyponatremia, anemia, infection, [place], ETOH, adverse medicine reaction, overdose, stroke, this is not meant to be an all-inclusive list. EKG interpreted by me (3pts min.). @ -Sinus rhythm rate of 72, UT interval 173, QRS duration 101, QTC 435, no ST segment elevation. X-rays interpreted by me (1pt min.). @ -Chest x-ray consistent with fluid overload and CHF CT interpreted by me (1pt min.). @ -None done U/S interpreted by me (1pt. min.). @ -None done What testing was considered but not performed or refused? (CT, X-rays, U/S, labs)? Why? @ -None What meds were considered but not given or refused? Why? @ -None Did you discuss the management of the patient with other professionals (professionals i.e. , PA, SAND CUTTER OPERATOR, lab, RT, psych nurse, group social worker, wafer fab technician, teacher, county health officer, sample case porter)? Give summary @ -No Was smoking cessation discussed for >3mins.? @ -No Was critical care preformed (if so, how long)? @ -No Were there social determinants of health that impacted care today? How? (Homelessness, low income, unemployed, alcoholism, drug addiction, calvo sportation, low edu. Level, literacy, decrease access to med. care, longterm, rehab)? @ -No Was there de-escalation of care discussed even if they declined (Discuss DNR or withdrawal of care, Hospice)? DNR status @ -DO NOT RESUSCITATE What co-morbidities impacted this encounter? (DM, HTN, Smoking, COPD, CAD, Cancer, CVA, ARF, Chemo, Hep., AIDS, mental health diagnosis, sleep apnea, morbid obesity)? @ -[Chronic kidney disease status post transplant, anemia, coronary artery disease Was patient admitted / discharged? Hospital course, mention meds given and route, prescriptions, significant lab abnormalities, going to OR and other pertinent info. @ -[57-year-old male presents with weakness. Recently discharged after cardiac stenting. Patient denies chest pain or worsening dyspnea. Denies fever. He has significant lab abnormalities including anemia with hemoglobin 6.5. He denies rectal bleeding, denies melena. He has a worsening creatinine. He has a troponin elevation which is likely secondary to recent stenting and chronic kidney disease. Patient will be admitted and may require placement. There was a family discussion about the possibility of hospice and I will request a hospice consult for evaluation. Undiagnosed new problem with uncertain prognosis? @ -No Drug Therapy requiring intensive monitoring for toxicity (Heparin, Nitro, Insulin, Cardizem)? @ -No Were any procedures done? @ -No Diagnosis/symptom? @ -Weakness, anemia Acute, or Chronic, or Acute on Chronic? @ -[Acute on chronic Uncomplicated (without systemic symptoms) or Complicated (systemic symptoms)? @ -[Complicated Side effects of treatment? @ -No Exacerbation, Progression, or Severe Exacerbation? @ -No Poses a threat to life or bodily function? How? (Chest pain, [place], NJ, pneumonia, PE, COPD, DKA, ARF, appy, cholecystitis, CVA, Diverticulitis, Homicidal, Suicidal, threat to staff... and all critical care pts) @Yes, guarded prognosis - Lab Data Result diagrams: 04/13/23 04:41 04/13/23 04:00 Lab Results 04/13/23 04/13/23 04/13/23 Range/Units 04:00 04:00 04:00 WBC 17.1 H (3.8-10.6) k/uL RBC 2.02 L (4.30-5.90) m/uL Hgb 6.5 L* D (13.0-17.5) gm/dL Hct 19.7 L* (39.0-53.0) % MCV 97.3 (80.0-100.0) fL MCH 32.3 (25.0-35.0) pg MCHC 33.2 (31.0-37.0) g/dL RDW 16.5 H (11.5-15.5) % Plt Count 158 (150-450) k/uL MPV 8.2 Neutrophils % 82 % Lymphocytes % 4 % Monocytes % 12 % Eosinophils % 0 % Basophils % 0 % Neutrophils # 14.1 H (1.3-7.7) k/uL Lymphocytes # 0.7 L (1.0-4.8) k/uL Monocytes # 2.0 H (0-1.0) k/uL Eosinophils # 0.0 (0-0.7) k/uL Basophils # 0.0 (0-0.2) k/uL Poikilocytosis Slight Anisocytosis Slight Macrocytosis Slight PT 11.1 (10.0-12.5) sec INR 1.0 (<1.2) APTT 22.3 (22.0-30.0) sec Sodium (137-145) mmol/L Potassium (3.5-5.1) mmol/L Chloride (98-107) mmol/L Carbon Dioxide (22-30) mmol/L Anion Gap mmol/L BUN (9-20) mg/dL Creatinine (0.66-1.25) mg/dL Est GFR (CKD-EPI)AfAm (>60 ml/min/1.73 sqM) Est GFR (CKD-EPI)NonAf (>60 ml/min/1.73 sqM) Glucose (74-99) mg/dL Plasma Lactic Acid Jose (0.7-2.0) mmol/L Calcium (8.4-10.2) mg/dL Magnesium (1.6-2.3) mg/dL Total Bilirubin (0.2-1.3) mg/dL AST (17-59) U/L ALT (4-49) U/L Alkaline Phosphatase (38-126) U/L Troponin I (0.000-0.034) ng/mL NT-Pro-B Natriuret Pep pg/mL Total Protein (6.3-8.2) g/dL Albumin (3.5-5.0) g/dL Urine Color Dark Brown Urine Appearance Slightly Cloudy (Clear) Urine RBC 9 H (0-5) /hpf Urine WBC 17 H (0-5) /hpf Urine Mucus Occasional H (None) /hpf Influenza Type A (PCR) (Not Detectd) Influenza Type B (PCR) (Not Detectd) RSV (PCR) (Not Detectd) SARS-CoV-2 (PCR) (Not Detectd) Blood Type Blood Type Recheck Bld Type Recheck Status Antibody Screen Crossmatch Spec Expiration Date 04/13/23 04/13/23 04/13/23 Range/Units 04:00 04:00 04:00 WBC (3.8-10.6) k/uL RBC (4.30-5.90) m/uL Hgb (13.0-17.5) gm/dL Hct (39.0-53.0) % MCV (80.0-100.0) fL MCH (25.0-35.0) pg MCHC (31.0-37.0) g/dL RDW (11.5-15.5) % Plt Count (150-450) k/uL MPV Neutrophils % % Lymphocytes % % Monocytes % % Eosinophils % % Basophils % % Neutrophils # (1.3-7.7) k/uL Lymphocytes # (1.0-4.8) k/uL Monocytes # (0-1.0) k/uL Eosinophils # (0-0.7) k/uL Basophils # (0-0.2) k/uL Poikilocytosis Anisocytosis Macrocytosis PT (10.0-12.5) sec INR (<1.2) APTT (22.0-30.0) sec Sodium 131 L (137-145) mmol/L Potassium 5.2 H (3.5-5.1) mmol/L Chloride 103 (98-107) mmol/L Carbon Dioxide 16 L (22-30) mmol/L Anion Gap 12 mmol/L BUN 75 H (9-20) mg/dL Creatinine 3.79 H (0.66-1.25) mg/dL Est GFR (CKD-EPI)AfAm 19 (>60 ml/min/1.73 sqM) Est GFR (CKD-EPI)NonAf 16 (>60 ml/min/1.73 sqM) Glucose 116 H (74-99) mg/dL Plasma Lactic Acid Jose 1.7 (0.7-2.0) mmol/L Calcium 9.3 (8.4-10.2) mg/dL Magnesium 2.5 H (1.6-2.3) mg/dL Total Bilirubin 0.9 (0.2-1.3) mg/dL AST 22 (17-59) U/L ALT 16 (4-49) U/L Alkaline Phosphatase 67 (38-126) U/L Troponin I 0.354 H* (0.000-0.034) ng/mL NT-Pro-B Natriuret Pep 6160 pg/mL Total Protein 5.5 L (6.3-8.2) g/dL Albumin 3.4 L (3.5-5.0) g/dL Urine Color Urine Appearance (Clear) Urine RBC (0-5) /hpf Urine WBC (0-5) /hpf Urine Mucus (None) /hpf Influenza Type A (PCR) (Not Detectd) Influenza Type B (PCR) (Not Detectd) RSV (PCR) (Not Detectd) SARS-CoV-2 (PCR) (Not Detectd) Blood Type Blood Type Recheck Bld Type Recheck Status Antibody Screen Crossmatch Spec Expiration Date 04/13/23 04/13/23 04/13/23 Range/Units 04:41 04:41 04:48 WBC 16.7 H (3.8-10.6) k/uL RBC 2.00 L (4.30-5.90) m/uL Hgb 6.6 L* (13.0-17.5) gm/dL Hct 19.4 L* (39.0-53.0) % MCV 97.0 (80.0-100.0) fL MCH 32.9 (25.0-35.0) pg MCHC 33.9 (31.0-37.0) g/dL RDW 16.6 H (11.5-15.5) % Plt Count 140 L (150-450) k/uL MPV 8.4 Neutrophils % 85 % Lymphocytes % 3 % Monocytes % 10 % Eosinophils % 0 % Basophils % 0 % Neutrophils # 14.2 H (1.3-7.7) k/uL Lymphocytes # 0.6 L (1.0-4.8) k/uL Monocytes # 1.7 H (0-1.0) k/uL Eosinophils # 0.0 (0-0.7) k/uL Basophils # 0.0 (0-0.2) k/uL Poikilocytosis Slight Anisocytosis Slight Macrocytosis Slight PT (10.0-12.5) sec INR (<1.2) APTT (22.0-30.0) sec Sodium (137-145) mmol/L Potassium (3.5-5.1) mmol/L Chloride (98-107) mmol/L Carbon Dioxide (22-30) mmol/L Anion Gap mmol/L BUN (9-20) mg/dL Creatinine (0.66-1.25) mg/dL Est GFR (CKD-EPI)AfAm (>60 ml/min/1.73 sqM) Est GFR (CKD-EPI)NonAf (>60 ml/min/1.73 sqM) Glucose (74-99) mg/dL Plasma Lactic Acid Jose (0.7-2.0) mmol/L Calcium (8.4-10.2) mg/dL Magnesium (1.6-2.3) mg/dL Total Bilirubin (0.2-1.3) mg/dL AST (17-59) U/L ALT (4-49) U/L Alkaline Phosphatase (38-126) U/L Troponin I (0.000-0.034) ng/mL NT-Pro-B Natriuret Pep pg/mL Total Protein (6.3-8.2) g/dL Albumin (3.5-5.0) g/dL Urine Color Urine Appearance (Clear) Urine RBC (0-5) /hpf Urine WBC (0-5) /hpf Urine Mucus (None) /hpf Influenza Type A (PCR) Not Detected (Not Detectd) Influenza Type B (PCR) Not Detected (Not Detectd) RSV (PCR) Not Detected (Not Detectd) SARS-CoV-2 (PCR) Not Detected (Not Detectd) Blood Type O Positive Blood Type Recheck O Pos Bld Type Recheck Status No Antibody Screen NEGATIVE Crossmatch See Detail Spec Expiration Date 04/16/20232340 Disposition Clinical Impression: CHF exacerbation, Renal transplant, status post, Anemia Disposition: ADMITTED IP TO THIS [facility] Condition: Serious Is patient prescribed a controlled substance at d/c from ED?: No Referrals: Sujit Cartagena [Primary Care Provider] - 1-2 days Time of Disposition: 06:39
[2023-04-13 04:29] LABS: Anisocytosis Slight; Basophils % (A) 0 %; Eosinophils % (A) 0 %; Lymphocytes # (A) 0.7 k/uL (1.0-4.8); Lymphocytes % (A) 4 %; MCH 32.3 pg (25.0-35.0); MCHC 33.2 g/dL (31.0-37.0); MCV 97.3 fL (80.0-100.0); Macrocytosis Slight; Mean Platelet Volume 8.2; Monocytes % (A) 12 %; Neutrophils # (A) 14.1 k/uL (1.3-7.7); Neutrophils % (A) 82 %; Partial Thromboplastin Time 22.3 sec (22.0-30.0); Platelet Count 158 k/uL (150-450); Poikilocytosis Slight; Prothrombin Time 11.1 sec (10.0-12.5); RBC 2.02 m/uL (4.30-5.90); RDW 16.5 % (11.5-15.5); WBC 17.1 k/uL (3.8-10.6)
[2023-04-13 04:32] LABS: HCT 19.7 % (39.0-53.0); HGB 6.5 gm/dL (13.0-17.5)
[2023-04-13 04:55] LABS: Anisocytosis Slight; Basophils % (A) 0 %; Eosinophils % (A) 0 %; Lymphocytes # (A) 0.6 k/uL (1.0-4.8); Lymphocytes % (A) 3 %; MCH 32.9 pg (25.0-35.0); MCHC 33.9 g/dL (31.0-37.0); Macrocytosis Slight; Mean Platelet Volume 8.4; Monocytes # (A) 1.7 k/uL (0-1.0); Monocytes % (A) 10 %; Neutrophils # (A) 14.2 k/uL (1.3-7.7); Neutrophils % (A) 85 %; Platelet Count 140 k/uL (150-450); Poikilocytosis Slight; RDW 16.6 % (11.5-15.5); WBC 16.7 k/uL (3.8-10.6)
[2023-04-13 04:59] LABS: ALT 16 U/L (4-49); AST 22 U/L (17-59); African American GFR (CKD) 19 (>60 ml/min/1.73 sqM); Albumin 3.4 g/dL (3.5-5.0); Alkaline Phosphatase 67 U/L (38-126); Anion Gap 12 mmol/L; Blood Urea Nitrogen 75 mg/dL (9-20); Calcium 9.3 mg/dL (8.4-10.2); Carbon Dioxide 16 mmol/L (22-30); Chloride 103 mmol/L (98-107); Glucose 116 mg/dL (74-99); Magnesium 2.5 mg/dL (1.6-2.3); Non-African American GFR(CKD) 16 (>60 ml/min/1.73 sqM); Potassium 5.2 mmol/L (3.5-5.1); Sodium 131 mmol/L (137-145); Total Bilirubin 0.9 mg/dL (0.2-1.3); Total Protein 5.5 g/dL (6.3-8.2)
[2023-04-13 05:01] LABS: HCT 19.4 % (39.0-53.0); HGB 6.6 gm/dL (13.0-17.5)
[2023-04-13 05:06] LABS: NT-Pro-B-Type Natriuretic Pept 6160 pg/mL
--- NOTE | 2023-04-13 05:30 | XR ---
EXAMINATION TYPE: XR chest 1V portable DATE OF EXAM: 04/13/2023 COMPARISON: Chest x-ray October 25, 2020 HISTORY: Increased weakness and shortness of breath. History of cardiac stents placed 2 days earlier TECHNIQUE: Single frontal view of the chest is obtained. FINDINGS: There is persistent cardiomegaly with central vascular congestion and small to tiny left p leural effusion. No pneumothorax is seen bilaterally. Left supraclavicular surgical clips are redem onstrated. The osseous structures are intact. IMPRESSION: Findings are suggestive of CHF exacerbation and/or fluid overload state. Correlate clini marcello.
[2023-04-13 05:54] LABS: Appearance,Urine Slightly Cloudy (Clear); Color,Urine Dark Brown
[2023-04-13 05:56] LABS: Mucus,Urine Occasional /hpf; RBC,Urine 9 /hpf (0-5); WBC,Urine 17 /hpf (0-5)
[2023-04-13] MEDS ORDERED: ACETAMINOPHEN TAB 325 MG TAB PO PRN (06:29)
[2023-04-13] MEDS ORDERED: NALOXONE 0.4 MG/ML 1 ML VIAL IV PRN (06:29)
[2023-04-13 12:14] LABS: Creatinine,Urine Random 81.6 mg/dL
--- NOTE | 2023-04-13 13:15 | P.HPIM ---
History of Present Illness H&P Date: 04/13/23 History of present illness; patient is a 57-year-old male with past medical history of hypertension, hyperlipidemia, post pancreas renal transplant , coronary artery disease who was recently discharged from the hospital after getting stent placed presenting back to the hospital for increasing weakness and inability to take care of himself . Patient underwent cardiac cath one day ago with Successful stenting of the OM1 with reduction of stenosis from 99% to less than 5%. Patient was discharged by cardiology in stable condition. After patient went home he started complaining of increasing lethargy and weakness. Denied any chest pain. Complaining of shortness of breath. Denied any palpitations. No complain of orthopnea or PND. No swelling of feet. Denies any lightheadedness and dizziness. No complain of blood in stools. No complaint of hematemesis. Initial lab work done in the ER showed WBC 17.1, hemoglobin 6.5, platelet count 158, sodium 131, potassium 5.2 BUN 75, creatinine 3.79, calcium 2.5 Chest x-ray done in the ER showed CHF exacerbation and fluid overload state Patient admitted to medicine service REVIEW OF SYSTEMS: CONSTITUTIONAL: No fever, complaining of lethargy and weakness HEENT: No recent visual problems or hearing problems. Denied any sore throat. CARDIOVASCULAR: No chest pain, orthopnea, PND, no palpitations, no syncope. PULMONARY: No shortness of breath, no cough, no hemoptysis. GASTROINTESTINAL: No diarrhea, no nausea, no vomiting, no abdominal pain. NEUROLOGICAL: No headaches, no weakness, no numbness. HEMATOLOGICAL: Denies any bleeding or petechiae. GENITOURINARY: Denies any burning micturition, frequency, or urgency. MUSCULOSKELETAL/RHEUMATOLOGICAL: Denies any joint pain, swelling, or any muscle pain. ENDOCRINE: Denies any polyuria or polydipsia. The rest of the 14-point review of systems is negative. PHYSICAL EXAMINATION: GENERAL: The patient is alert to self only, chronically ill-looking HEENT: Pupils are round and equally reacting to light. EOMI. No scleral icterus. No conjunctival pallor. Normocephalic, atraumatic. No pharyngeal erythema. No thyromegaly. CARDIOVASCULAR: S1 and S2 present. No murmurs, rubs, or gallops. PULMONARY: Chest is clear to auscultation, no wheezing or crackles. ABDOMEN: Distended, no tenderness , normoactive bowel sounds. No palpable organomegaly. MUSCULOSKELETAL: No joint swelling or deformity. EXTREMITIES: No cyanosis, clubbing, or pedal edema. NEUROLOGICAL: Gross neurological examination did not reveal any focal deficits. SKIN: Multiple areas of ecchymosis seen Assessment and plan Anemia Acute on chronic kidney disease Hyponatremia Hypokalemia History of kidney pancreas transplantation chronic obstructive pulmonary disease, not in exacerbation Diabetes mellitus, type II Hypertension Monitor vital signs Monitor CBC Monitor CMP Continue telemetry monitoring Type and screen, will transfuse 2 units of packed red blood cell Ordered FOBT Ordered iron profile, ferritin, folate Order CT abdominal pelvis without contrast to rule out retroperitoneal bleed Ordered ultrasound kidneys Strict I's and O's, daily weights, avoid nephrotoxic agents Consult nephrology Consult Cardiology Hospice consulted Labs and medication were reviewed.. Continue same treatment. Continue with symptomatic treatment. Resume home medication. Monitor labs and vitals. DVT and GI prophylaxis. Further recommendations as per clinical course of the patient Dictation was produced using [employer] dictation software. please excuse any grammatical, word or spelling errors. Past Medical History Past Medical History: Cancer, Heart Failure, COPD, Diabetes Mellitus, Hyperlipidemia, Hypertension, Osteoarthritis (OA), Prostate Disorder, Renal Disease, Sleep Apnea/CPAP/BIPAP Additional Past Medical History / Comment(s): ARDS, hx of DM was tx for dm from age 9- 35, had pancreas transplant), uses cpap machine, basal/squamous cell ski n cancer, cancer on neck received surg & radiation on neck 02/2020. hx rt elbow broken-(sx), charcots foot, pancreatitis, bladder leakage, Kidney transplant. History of Any Multi-Drug Resistant Organisms: None Reported Past Surgical History: Hernia Repair, Joint Replacement Additional Past Surgical History / Comment(s): 2 kidney and 1 pancreas transplant, L knee replacment, rt elbow sx has 7 screws,cataracts removed-lens i mplants, laser eye sx for retinopathy, fernando foot sx, skin cancer removed on his head, neck surgery for cancer. Past Anesthesia/Blood Transfusion Reactions: No Reported Reaction Smoking Status: Never smoker - Past Family History Mother Family Medical History: Cancer, Diabetes Mellitus Father Family Medical History: CVA/TIA Additional Family Medical History / Comment(s): was smoker had stroke in his 30's Medications and Allergies Home Medications Medication Instructions Recorded Confirmed Type Sodium Bicarbonate Tab 1,300 mg PO TID 11/23/13 04/13/23 History Ferrous Sulfate [Iron (65 MG 325 mg PO DAILY 12/17/18 04/13/23 History Elemental)] Montelukast [Singulair] 10 mg PO HS 12/17/18 04/13/23 History allopurinoL [Zyloprim] 100 mg PO DAILY 12/17/18 04/13/23 History calcitrioL [Rocaltrol] 0.5 mcg PO MOWEFR 12/17/18 04/13/23 History predniSONE 5 mg PO DAILY 03/09/19 04/13/23 History Labetalol HCl 400 mg PO BID 11/15/19 04/13/23 History amLODIPine [Norvasc] 5 mg PO BID 11/15/19 04/13/23 History calcitrioL [Rocaltrol] 0.25 mcg PO SUTUTHSA 03/03/20 04/13/23 History Niacinamide 500 mg PO BID-W/MEALS 10/23/20 04/13/23 History Tacrolimus [Prograf] 0.5 mg PO BID 30 Days #60 cap 02/13/22 04/13/23 Rx hydrALAZINE HCL [Apresoline] 50 mg PO BID 04/17/22 04/13/23 History Citalopram Hydrobromide 10 mg PO DAILY 10/18/22 04/13/23 History [Citalopram HBr] Torsemide [Demadex] 40 mg PO DAILY 04/10/23 04/13/23 History Aspirin 81 mg PO DAILY tab 04/12/23 04/13/23 Rx Nitroglycerin Sl Tabs [Nitrostat] 0.4 mg SUBLINGUAL Q5M PRN #25 tab 04/12/23 04/13/23 Rx Apixaban [Eliquis] 2.5 mg PO BID 04/13/23 04/13/23 History Atorvastatin [Lipitor] 80 mg PO DIRECTED 04/13/23 04/13/23 History Clopidogrel [Plavix] 75 mg PO DIRECTED 04/13/23 04/13/23 History Magnesium Oxide [Mag-Ox] 400 mg PO DAILY 04/13/23 04/13/23 History Ondansetron Odt [Zofran Odt] 4 mg PO Q8HR PRN 04/13/23 04/13/23 History Allergies Allergy/AdvReac Type Severity Reaction Status Date / Time Iodine and Iodide Containing AdvReac HX OF Verified 04/13/23 12:38 Produc KIDNEY DISEASE Physical Exam Vitals: Vital Signs Temp Pulse Resp BP Pulse Ox 04/13/23 09:24 98.1 F 75 18 131/74 93 L 04/13/23 07:17 98.5 F 75 20 122/70 95 04/13/23 06:57 97.8 F 75 18 120/69 96 04/13/23 06:48 98.5 F 76 18 128/72 97 04/13/23 06:16 71 18 125/71 96 04/13/23 03:39 74 117/68 93 L Intake and Output 04/12/23 04/13/23 04/13/23 22:59 06:59 14:59 Intake Total 0 Balance 0 Intake: Blood Product 0 Rc As-1 Unit 0 [id number] Other: Weight 59.874 kg Results CBC & Chem 7: 04/13/23 04:41 04/13/23 04:00 Labs: Abnormal Lab Results - Last 24 Hours (Table) 04/13/23 04/13/23 04/13/23 Range/Units 04:00 04:00 04:00 WBC 17.1 H (3.8-10.6) k/uL RBC 2.02 L (4.30-5.90) m/uL Hgb 6.5 L* D (13.0-17.5) gm/dL Hct 19.7 L* (39.0-53.0) % RDW 16.5 H (11.5-15.5) % Plt Count (150-450) k/uL Neutrophils # 14.1 H (1.3-7.7) k/uL Lymphocytes # 0.7 L (1.0-4.8) k/uL Monocytes # 2.0 H (0-1.0) k/uL Sodium 131 L (137-145) mmol/L Potassium 5.2 H (3.5-5.1) mmol/L Carbon Dioxide 16 L (22-30) mmol/L BUN 75 H (9-20) mg/dL Creatinine 3.79 H (0.66-1.25) mg/dL Glucose 116 H (74-99) mg/dL Magnesium 2.5 H (1.6-2.3) mg/dL Troponin I (0.000-0.034) ng/mL Total Protein 5.5 L (6.3-8.2) g/dL Albumin 3.4 L (3.5-5.0) g/dL Urine RBC 9 H (0-5) /hpf Urine WBC 17 H (0-5) /hpf Urine Mucus Occasional H (None) /hpf Crossmatch 04/13/23 04/13/23 04/13/23 Range/Units 04:00 04:41 04:41 WBC 16.7 H (3.8-10.6) k/uL RBC 2.00 L (4.30-5.90) m/uL Hgb 6.6 L* (13.0-17.5) gm/dL Hct 19.4 L* (39.0-53.0) % RDW 16.6 H (11.5-15.5) % Plt Count 140 L (150-450) k/uL Neutrophils # 14.2 H (1.3-7.7) k/uL Lymphocytes # 0.6 L (1.0-4.8) k/uL Monocytes # 1.7 H (0-1.0) k/uL Sodium (137-145) mmol/L Potassium (3.5-5.1) mmol/L Carbon Dioxide (22-30) mmol/L BUN (9-20) mg/dL Creatinine (0.66-1.25) mg/dL Glucose (74-99) mg/dL Magnesium (1.6-2.3) mg/dL Troponin I 0.354 H* (0.000-0.034) ng/mL Total Protein (6.3-8.2) g/dL Albumin (3.5-5.0) g/dL Urine RBC (0-5) /hpf Urine WBC (0-5) /hpf Urine Mucus (None) /hpf Crossmatch See Detail
[2023-04-13 14:11] LABS: % Iron Saturation 17.51 (15.00-50.00)
[2023-04-13] MEDS ORDERED: HYDROcodone/APAP 5-325MG 1 EACH TAB PO PRN (14:25)
[2023-04-13] MEDS: HYDROmorphone 0.5 MG/0.5 ML SYRINGE IVP PRN ×2 (14:50→18:37)
--- NOTE | 2023-04-13 15:31 | CT ---
EXAMINATION TYPE: CT abdomen pelvis wo con CT DLP: 445.1 mGycm, Automated exposure control for dose reduction was used. DATE OF EXAM: 04/13/2023 11:39 AM COMPARISON: CT from 12/05/2021 , and previous studies CLINICAL INDICATION:Male, 57 years old with history of anemia, rule out retroperitoneal bleed; anemia , rule out retroperitoneal bleed TECHNIQUE: Axial CT of the abdomen and pelvis. Sagittal and coronal reformats were created on a [employer] workstation. Contrast used: mL of , (none if empty) Oral contrast used: without Oral Contrast (none if empty) FINDINGS: LOWER CHEST: Heart is moderately enlarged. Scarring or atelectasis in the lung bases with mild pleura l thickening on the left. Moderate coronary artery calcifications. Small hiatal hernia. ABDOMEN LIVER: Unremarkable GALLBLADDER AND BILE DUCTS: Hyperdense contents filling most of the gallbladder, may represent marzena ous excretion, sludge, or tiny gallstones. No biliary dilatation is seen. PANCREAS: Appears atrophic without acute abnormality. SPLEEN: Unremarkable. ADRENAL GLANDS: Unremarkable. KIDNEYS AND URETERS: Severe atrophy of the ely [place] kidneys bilaterally without evidence of hydronephro sis. Calcifications in the renal glenda, likely vascular. Transplant kidney seen in the right pelvis an teriorly. A few small hypodense and hyperdense nodules of the transplant kidney, likely cysts. No hyd ronephrosis is seen. Changes in the left pelvis again seen, likely operative, may be related to end-s tage transplant kidney. A soft tissue density in the anterior left lower quadrant image 56 appears sm aller now measuring 1.9 cm and was 2.8 cm. Etiology is not entirely certain but could relate to resid ual renal tissue or mass. PELVIS BLADDER: Appears stable. Intraluminal contrast is present. Anastomosis again seen along the left late ral bladder. REPRODUCTIVE: Multiple radiodensities again seen along the anterior aspect of the prostate. ABDOMEN & PELVIS STOMACH AND BOWEL: Stomach and small bowel are nondistended. No evidence of small bowel obstruction. Moderate stool throughout the colon with no focal abnormality seen. No evidence of bowel obstruction. Appendix is not visualized. PERITONEUM/RETROPERITONEUM: Somewhat hyperdense material seen in the right retroperitoneum, fusiform in shape, extending cranially to about the L1 level. Maximal axial dimensions of 8.1 x 6.9 cm at abou t the L5 level. This extends along the anterior aspect of the right iliopsoas inferiorly, with the la rgest portion in the right inguinal measuring about 4.9 x 4.6 cm. The finding is consistent with a re troperitoneal hematoma. No intraperitoneal free fluid or free air is seen. VASCULATURE: Extensive arterial vascular calcifications again noted. 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 MUSCULOSKELETAL: No definite acute bony abnormalities. Moderate diffuse chronic degenerative changes. Mild lumbar levocurvature. LYMPH NODES: Scattered subcentimeter retroperitoneal nodes. SOFT TISSUE/ABDOMINAL WALL: Laxity along the left anterior abdominal wall, relatively broad-based, wi th partial protrusion of bowel without evidence of obstruction. IMPRESSION: 1. Moderately large, fusiform retroperitoneal hemorrhage on the right, extending from the L1 level t o the right inguinal region. 2. Otherwise, no definite acute process is identified. 3. Relatively low-attenuation structure along the posterior aspect of the pancreatic head appears sl ightly larger, now 3.6 cm and was 2.4 cm on the prior study. This could represent a pancreatic lesion such as cyst or IPMN, with other etiologies not excluded. Consider follow-up with periodic MR pancre as. 4. Postoperative changes within the left pelvis, generally similar to prior and likely related to en d-stage transplanted kidney. A soft tissue nodule anteriorly is 1.9 cm and was 2.8 cm. This might be related to residual renal tissue, however neoplasm cannot be excluded from this exam. 5. Other chronic and likely incidental findings, as described above.
--- NOTE | 2023-04-13 16:08 | P.NPCON ---
History of Present Illness - Reason for Consult Consult date: 04/13/23 acute renal failure - Chief Complaint Generalized weakness - History of Present Illness 57-year-old gentleman coming to the hospital with the above complaints. Recently discharged from the hospital after undergoing cardiac cath with successful stenting. He had ESRD status post renal transplant in 1999 from a living related donor from his brother. He also got a donor pancreas in the same year at [place]. Baseline creatinine around 2.0 MG per DL. Recent a dmission creatinine 2.7-2.8, creeping to 3.2 MG per DL at discharge. He denies any nausea vomiting diarrhea. No chest pain or shortness of breath. Decreased by mouth intake. Computed tomography scan showed retroperitoneal hemorrhage. He is receiving 2 units of PRBC. Hemodynamics stable. Review of Systems Constitutional: Reports as per HPI Past Medical History Past Medical History: Cancer, Heart Failure, COPD, Diabetes Mellitus, Hyperlipidemia, Hypertension, Osteoarthritis (OA), Prostate Disorder, Renal Disease, Sleep Apnea/CPAP/BIPAP Additional Past Medical History / Comment(s): ARDS, hx of DM was tx for dm from age 9- 35, had pancreas transplant), uses cpap machine, basal/squamous cell skin cancer, cancer on neck received surg & radiation on neck 02/2020. hx rt elbow broken-(sx), charcots foot, pancreatitis, bladder leakage, Kidney transplant. History of Any Multi-Drug Resistant Organisms: None Reported Past Surgical History: Hernia Repair, Joint Replacement Additional Past Surgical History / Comment(s): 2 kidney and 1 pancreas transplant, L knee replacment, rt elbow sx has 7 screws,cataracts removed-lens implants, laser eye sx for retinopathy, fernando foot sx, skin cancer removed on his head, neck surgery for cancer. Past Anesthesia/Blood Transfusion Reactions: No Reported Reaction Smoking Status: Never smoker - Past Family History Mother Family Medical History: Cancer, Diabetes Mellitus Father Family Medical History: CVA/TIA Additional Family Medical History / Comment(s): was smoker had stroke in his 30's Medications and Allergies Home Medications Medication Instructions Recorded Confirmed Type Sodium Bicarbonate Tab 1,300 mg PO TID 11/23/13 04/13/23 History Ferrous Sulfate [Iron (65 MG 325 mg PO DAILY 12/17/18 04/13/23 History Elemental)] Montelukast [Singulair] 10 mg PO HS 12/17/18 04/13/23 History allopurinoL [Zyloprim] 100 mg PO DAILY 12/17/18 04/13/23 History calcitrioL [Rocaltrol] 0.5 mcg PO MOWEFR 12/17/18 04/13/23 History predniSONE 5 mg PO DAILY 03/09/19 04/13/23 History Labetalol HCl 400 mg PO BID 11/15/19 04/13/23 History amLODIPine [Norvasc] 5 mg PO BID 11/15/19 04/13/23 History calcitrioL [Rocaltrol] 0.25 mcg PO SUTUTHSA 03/03/20 04/13/23 History Niacinamide 500 mg PO BID-W/MEALS 10/23/20 04/13/23 History Tacrolimus [Prograf] 0.5 mg PO BID 30 Days #60 cap 02/13/22 04/13/23 Rx hydrALAZINE HCL [Apresoline] 50 mg PO BID 04/17/22 04/13/23 History Citalopram Hydrobromide 10 mg PO DAILY 10/18/22 04/13/23 History [Citalopram HBr] Torsemide [Demadex] 40 mg PO DAILY 04/10/23 04/13/23 History Aspirin 81 mg PO DAILY tab 04/12/23 04/13/23 Rx Nitroglycerin Sl Tabs [Nitrostat] 0.4 mg SUBLINGUAL Q5M PRN #25 tab 04/12/23 04/13/23 Rx Apixaban [Eliquis] 2.5 mg PO BID 04/13/23 04/13/23 History Atorvastatin [Lipitor] 80 mg PO DIRECTED 04/13/23 04/13/23 History Clopidogrel [Plavix] 75 mg PO DIRECTED 04/13/23 04/13/23 History Magnesium Oxide [Mag-Ox] 400 mg PO DAILY 04/13/23 04/13/23 History Ondansetron Odt [Zofran Odt] 4 mg PO Q8HR PRN 04/13/23 04/13/23 History Allergies Allergy/AdvReac Type Severity Reaction Status Date / Time Iodine and Iodide Containing AdvReac HX OF Verified 04/13/23 12:38 Produc KIDNEY DISEASE Physical Exam Vitals: Vital Signs Temp Pulse Resp BP Pulse Ox 04/13/23 15:30 88 18 141/74 93 L 04/13/23 14:59 20 04/13/23 13:32 80 20 126/77 93 L 04/13/23 12:45 98.1 F 78 20 140/75 94 L 04/13/23 12:25 98.0 F 78 20 141/81 94 L 04/13/23 12:15 98.2 F 78 20 132/80 95 04/13/23 12:03 78 20 139/72 92 L 04/13/23 10:10 98.1 F 78 22 141/72 97 04/13/23 09:24 98.1 F 75 18 131/74 93 L 04/13/23 07:17 98.5 F 75 20 122/70 95 04/13/23 06:57 97.8 F 75 18 120/69 96 04/13/23 06:48 98.5 F 76 18 128/72 97 04/13/23 06:16 71 18 125/71 96 04/13/23 03:39 74 117/68 93 L Intake and Output 04/13/23 04/13/23 04/13/23 06:59 14:59 22:59 Intake Total 0 310 310 Balance 0 310 310 Intake: Blood Product 0 310 310 Rc As-1 Unit 0 310 [id number] Rc As-1 Unit 0 310 [id number] Other: Weight 59.874 kg No acute distress S1-S2 heard Lungs clear Abdomen soft No edema Results - Lab Results Most recent lab results Calcium 9.3 mg/dL (8.4-10.2) 04/13/23 04:00 Magnesium 2.5 mg/dL (1.6-2.3) H 04/13/23 04:00 04/13/23 04:41 04/13/23 04:00 Assessment and Plan Assessment: #1 acute kidney injury, multifactorial ATN. -Recent contrast and currently ischemic -Baseline creatinine around 2.0 MG per DL. #2 status post living related renal transplant in 1999 and donor pancreatic transplant in the same year #3 anemia secondary to retroperitoneal bleed #4 CK D4 #5 metabolic bone disease #6 recent cardiac cath Plan: #1 agree with blood transfusion, start normal saline at 75 ML's an hour. #2 check urine analysis #3 avoid nephrotoxic agents and hypotensive episodes #4 restart on home immunosuppressive medication
[2023-04-13 16:10] LABS: Anisocytosis Slight; Basophils % (A) 0 %; Eosinophils % (A) 0 %; HCT 25.7 % (39.0-53.0); Lymphocytes # (A) 0.5 k/uL (1.0-4.8); Lymphocytes % (A) 3 %; MCH 32.3 pg (25.0-35.0); MCHC 34.7 g/dL (31.0-37.0); MCV 93.2 fL (80.0-100.0); Mean Platelet Volume 8.3; Monocytes # (A) 1.6 k/uL (0-1.0); Monocytes % (A) 10 %; Neutrophils # (A) 12.8 k/uL (1.3-7.7); Neutrophils % (A) 85 %; Platelet Count 130 k/uL (150-450); RBC 2.76 m/uL (4.30-5.90); RDW 16.3 % (11.5-15.5); WBC 15.1 k/uL (3.8-10.6)
[2023-04-13 16:15] LABS: HGB 8.9 gm/dL (13.0-17.5)
[2023-04-13] MEDS: SODIUM CHLORIDE 0.9% 1,000 ML IV SCH (16:43)
--- NOTE | 2023-04-13 17:38 | P.CRDCN ---
History of Present Illness History of present illness: HISTORY OF PRESENTING ILLNESS This is a pleasant 57-year-old male past medical history significant for dyslipidemia, paroxysmal atrial fibrillation on Eliquis, diabetes mellitus status post pancreas transplant, chronic kidney disease status post kidney transplantation, obstructive sleep apnea, anemia, CAD s/p PCI OM1. He follows in the office with Dr. Jordan. He has been complaining of increasing episodes of shortness breath and congestive heart failure and has had worsened any function. Risks and benefits eventually explained to patient and patient eventually underwent heart catheterization with PCI of OM1 branch 04/11/2023 from a left radial approach. He did fairly well postoperatively however has been complaining of increasing shortness breath and fatigue and therefore presented back to the emergency department. He was found to have anemia with hemoglobin 6.5 and therefore was transfused 2 units packed red blood cells. He had CAT scan of the abdomen and pelvis performed which showed a retroperitoneal bleed mainly extending into the right femoral site. There is no femoral intervention. He had been discharged home on aspirin, Plavix, Eliquis. He denies any chest pain or pressure. Creatinine elevated at 3.8 and troponin elevated 0.3. Renal transplant ultrasound performed however has not resulted. REVIEW OF SYSTEMS At the time of my exam: CONSTITUTIONAL: Denies fever or chills. CARDIOVASCULAR: Denies chest pain, +shortness of breath, no orthopnea, PND or palpitations. RESPIRATORY: Denies cough. GASTROINTESTINAL: Denies abdominal pain, diarrhea, constipation, nausea or vomiting. MUSCULOSKELETAL: Denies myalgias. NEUROLOGIC: Denies numbness, tingling or weakness. ENDOCRINE: Denies fatigue, weight change, polydipsia or polyurina. GENITOURINARY: Denies burning, hematuria or urgency with micturation. HEMATOLOGIC: Denies history of anemia or bleeding. PHYSICAL EXAMINATION Vitals reviewed CONSTITUTIONAL: No apparent distress. Appears older than stated age HEENT: Head is normocephalic. Pupils are equal, round. Sclerae anicteric. Mucous membranes of the mouth are moist. No JVD. No carotid bruit. CHEST EXAMINATION: Lungs are clear to auscultation. No chest wall tenderness is noted on palpation or with deep breathing. HEART EXAMINATION: Regular rate and rhythm. S1, S2 heard. Short systolic ejection murmur at the base, no gallops or rub. ABDOMEN: Soft, nontender. Positive bowel sounds. Mildly distended EXTREMITIES: 2+ peripheral pulses, trace bilateral lower extremity pitting edema and no calf tenderness. NEUROLOGIC EXAMINATION: Patient is awake, alert and oriented x3. ASSESSMENT CAD status post PCI OM1 branch 04/11 Acute blood loss anemia appears mainly related to retroperitoneal hemorrhage Abdominal aortic aneurysm stable by noncontrast CT Acute kidney injury Chronic diastolic heart failure Leukocytosis Paroxysmal atrial fibrillation on long-term anticoagulation, currently maintaining sinus mechanism Squamous cell skin cancer Hypertension Dyslipidemia Diabetes mellitus Chronic kidney disease status post renal transplant History of pancreatic transplant PLAN Patient has received 2 units packed red blood cells and hemoglobin has stabilized to 8.9. Likely spontaneous retroperitoneal hemorrhage related to antiplatelets and anticoagulation. Additionally has acute kidney injury likely related to contrast-induced nephropathy. Does not appear to be actively hemorrhaging and therefore restart aspirin. If hemoglobin relatively stable likely restart Plavix with increased risk of stent thrombosis without any a ntiplatelets. Discussed case with vascular surgery. May consider CTA abdomen and pelvis if patient worsening to evaluate for active bleed however this would increase risk of further kidney injury. Prognosis guarded. Past Medical History Past Medical History: Cancer, Heart Failure, COPD, Diabetes Mellitus, Hyperlipidemia, Hypertension, Osteoarthritis (OA), Prostate Disorder, Renal Disease, Sleep Apnea/CPAP/BIPAP Additional Past Medical History / Comment(s): ARDS, hx of DM was tx for dm from age 9- 35, had pancreas transplant), uses cpap machine, basal/squamous cell skin cancer, cancer on neck received surg & radiation on neck 02/2020. hx rt elbow broken-(sx), charcots foot, pancreatitis, bladder leakage, Kidney transplant. History of Any Multi-Drug Resistant Organisms: None Reported Past Surgical History: Hernia Repair, Joint Replacement Additional Past Surgical History / Comment(s): 2 kidney and 1 pancreas transplant, L knee replacment, rt elbow sx has 7 screws,cataracts removed-lens implants, laser eye sx for retinopathy, fernando foot sx, skin cancer removed on his head, neck surgery for cancer. Past Anesthesia/Blood Transfusion Reactions: No Reported Reaction Smoking Status: Never smoker - Past Family History Mother Family Medical History: Cancer, Diabetes Mellitus Father Family Medical History: CVA/TIA Additional Family Medical History / Comment(s): was smoker had stroke in his 30's Medications and Allergies Home Medications Medication Instructions Recorded Confirmed Type Sodium Bicarbonate Tab 1,300 mg PO TID 11/23/13 04/13/23 History Ferrous Sulfate [Iron (65 MG 325 mg PO DAILY 12/17/18 04/13/23 History Elemental)] Montelukast [Singulair] 10 mg PO HS 12/17/18 04/13/23 History allopurinoL [Zyloprim] 100 mg PO DAILY 12/17/18 04/13/23 History calcitrioL [Rocaltrol] 0.5 mcg PO MOWEFR 12/17/18 04/13/23 History predniSONE 5 mg PO DAILY 03/09/19 04/13/23 History Labetalol HCl 400 mg PO BID 11/15/19 04/13/23 History amLODIPine [Norvasc] 5 mg PO BID 11/15/19 04/13/23 History calcitrioL [Rocaltrol] 0.25 mcg PO SUTUTHSA 03/03/20 04/13/23 History Niacinamide 500 mg PO BID-W/MEALS 10/23/20 04/13/23 History Tacrolimus [Prograf] 0.5 mg PO BID 30 Days #60 cap 02/13/22 04/13/23 Rx hydrALAZINE HCL [Apresoline] 50 mg PO BID 04/17/22 04/13/23 History Citalopram Hydrobromide 10 mg PO DAILY 10/18/22 04/13/23 History [Citalopram HBr] Torsemide [Demadex] 40 mg PO DAILY 04/10/23 04/13/23 History Aspirin 81 mg PO DAILY tab 04/12/23 04/13/23 Rx Nitroglycerin Sl Tabs [Nitrostat] 0.4 mg SUBLINGUAL Q5M PRN #25 tab 04/12/23 04/13/23 Rx Apixaban [Eliquis] 2.5 mg PO BID 04/13/23 04/13/23 History Atorvastatin [Lipitor] 80 mg PO DIRECTED 04/13/23 04/13/23 History Clopidogrel [Plavix] 75 mg PO DIRECTED 04/13/23 04/13/23 History Magnesium Oxide [Mag-Ox] 400 mg PO DAILY 04/13/23 04/13/23 History Ondansetron Odt [Zofran Odt] 4 mg PO Q8HR PRN 04/13/23 04/13/23 History Allergies Allergy/AdvReac Type Severity Reaction Status Date / Time Iodine and Iodide Containing AdvReac HX OF Verified 04/13/23 12:38 Produc KIDNEY DISEASE Physical Exam Vitals: Vital Signs Temp Pulse Resp BP Pulse Ox 04/13/23 15:30 88 18 141/74 93 L 04/13/23 14:59 20 04/13/23 13:32 80 20 126/77 93 L 04/13/23 12:45 98.1 F 78 20 140/75 94 L 04/13/23 12:25 98.0 F 78 20 141/81 94 L 04/13/23 12:15 98.2 F 78 20 132/80 95 04/13/23 12:03 78 20 139/72 92 L 04/13/23 10:10 98.1 F 78 22 141/72 97 04/13/23 09:24 98.1 F 75 18 131/74 93 L 04/13/23 07:17 98.5 F 75 20 122/70 95 04/13/23 06:57 97.8 F 75 18 120/69 96 04/13/23 06:48 98.5 F 76 18 128/72 97 04/13/23 06:16 71 18 125/71 96 04/13/23 03:39 74 117/68 93 L Intake and Output 04/13/23 04/13/23 04/13/23 06:59 14:59 22:59 Intake Total 0 310 310 Balance 0 310 310 Intake: Blood Product 0 310 310 Rc As-1 Unit 0 310 [id number] Rc As-1 Unit 0 310 [id number] Other: Weight 59.874 kg Results 04/13/23 15:44 04/13/23 04:00 Cardiac Enzymes 04/13/23 04/13/23 Range/Units 04:00 04:00 AST 22 (17-59) U/L Troponin I 0.354 H* (0.000-0.034) ng/mL Coagulation 04/13/23 Range/Units 04:00 PT 11.1 (10.0-12.5) sec APTT 22.3 (22.0-30.0) sec CBC 04/13/23 04/13/23 04/13/23 Range/Units 04:00 04:41 15:44 WBC 17.1 H 16.7 H 15.1 H (3.8-10.6) k/uL RBC 2.02 L 2.00 L 2.76 L (4.30-5.90) m/uL Hgb 6.5 L* D 6.6 L* 8.9 L D (13.0-17.5) gm/dL Hct 19.7 L* 19.4 L* 25.7 L (39.0-53.0) % Plt Count 158 140 L 130 L (150-450) k/uL Comprehensive Metabolic Panel 04/13/23 Range/Units 04:00 Sodium 131 L (137-145) mmol/L Potassium 5.2 H (3.5-5.1) mmol/L Chloride 103 (98-107) mmol/L Carbon Dioxide 16 L (22-30) mmol/L BUN 75 H (9-20) mg/dL Creatinine 3.79 H (0.66-1.25) mg/dL Glucose 116 H (74-99) mg/dL Calcium 9.3 (8.4-10.2) mg/dL AST 22 (17-59) U/L ALT 16 (4-49) U/L Alkaline Phosphatase 67 (38-126) U/L Total Protein 5.5 L (6.3-8.2) g/dL Albumin 3.4 L (3.5-5.0) g/dL Current Medications Generic Name Dose Route Start Last Admin Trade Name Freq PRN Reason Stop Dose Admin Acetaminophen 650 mg 04/13/23 06:29 Acetaminophen Tab 325 Mg Tab PO Q6HR PRN Mild Pain or Fever > 100.5 Hydrocodone Bitart/Acetaminophen 1 each 04/13/23 14:25 Hydrocodone/Apap 5-325mg 1 Each Tab PO Q6HR PRN Pain Hydromorphone HCl 0.5 mg 04/13/23 14:25 04/13/23 14:50 Hydromorphone 0.5 Mg/0.5 Ml Syringe IVP 0.5 mg Q4HR PRN Administration Pain Sodium Chloride 1,000 mls @ 75 mls/hr 04/13/23 16:15 04/13/23 16:43 Saline 0.9% IV 75 mls/hr .[id number] NINA Administration Naloxone HCl 0.2 mg 04/13/23 06:29 Naloxone 0.4 Mg/Ml 1 Ml Vial IV Q2M PRN Opioid Reversal Prednisone 5 mg 04/14/23 09:00 Prednisone 5 Mg Tab PO DAILY NINA Tacrolimus 0.5 mg 04/13/23 21:00 Tacrolimus 0.5 Mg Cap PO BID NINA Intake and Output 04/13/23 04/13/23 04/13/23 06:59 14:59 22:59 Intake Total 0 310 310 Balance 0 310 310 Intake: Blood Product 0 310 310 Rc As-1 Unit 0 310 [id number] Rc As-1 Unit 0 310 [id number] Other: Weight 59.874 kg 04/13/23 15:44 04/13/23 04:00
--- NOTE | 2023-04-13 17:48 | US ---
EXAMINATION TYPE: US renal transplant w dop DATE OF EXAM: 04/13/2023 COMPARISON: NONE CLINICAL INDICATION: Male, 57 years old with history of [place]; bilateral renal transplants years ago Pa ncreas transplant in 1999. EXAM PERFORMED: Grayscale sonography of the [place] kidneys and Doppler duplex and Grayscale imaging o f the transplanted kidneys. ANATOMY / EXAM MEASUREMENTS: [place] Right Kidney: Not visualized [place] Left Kidney: Not visualized Transplant Kidney Right 9.9 x 4.1 x 5.4 cm, with cortical thickness approximately 1.4 cm. Transplant Kidney Left: 11.8 x 6.2 x 5.3 cm , with cortical thickness approximately 1 cm. Location of transplanted kidneys: Pelvis No evidence of hydronephrosis, shadowing renal calculus, or mass bilaterally. Color Doppler flow proj ects over the bilateral transplant renal parenchyma. Doppler evaluation shows preserved arterial and venous waveforms bilaterally. Bladder: Anechoic and grossly unremarkable. Bilateral Jets seen: no IMPRESSION: 1. No acute sonographic abnormality of the bilateral transplant kidneys. 2. Mild/moderate cortical thinning of the left transplant kidney compared to the right.
--- NOTE | 2023-04-13 19:21 | US ---
EXAMINATION TYPE: US lower ext pseudo artery RT DATE OF EXAM: 04/13/2023 COMPARISON: NONE CLINICAL INDICATION: Male, 57 years old with history of re: retroperitoneal bleed; EXAM PERFORMED: Grayscale and color Doppler duplex imaging performed of the groin, post cardiac [address] to assess for pseudoaneurysm. SIDE PERFORMED: Right Color and Waveform Doppler performed to assess for the presence of pseudoaneurysm; Is there ultrasound evidence of a pseudoaneurysm: no Is there evidence of AV shunting: no Is there a fluid collection present: no IMPRESSION: 1. No suspicious vascular anomaly right inguinal region
[2023-04-13] MEDS: TACROLIMUS 0.5 MG CAP PO SCH (21:07)
[2023-04-13 22:02] LABS: Anisocytosis Slight; HCT 25.4 % (39.0-53.0); HGB 8.8 gm/dL (13.0-17.5); MCH 32.7 pg (25.0-35.0); MCHC 34.8 g/dL (31.0-37.0); Mean Platelet Volume 7.9; Platelet Count 119 k/uL (150-450); RDW 16.6 % (11.5-15.5); WBC 16.3 k/uL (3.8-10.6)
--- NOTE | 2023-04-14 00:04 | P.CON ---
Consult Note - . Consult date: 04/13/23 Assessment/Plan:: Chief complaint; feelings of shortness of breath and fatigue HPI; 57-year-old gentleman presented to the emergency room earlier today with complaints of fatigue and shortness of breath. Patient had just recently been discharged from this hospital after undergoing percutaneous coronary stent placement. Patient on examination was noted to have a significantly decreased hemoglobin at approximately 6.6, no history of external hemorrhage. A CT of the abdomen demonstrated evidence of a retroperitoneal hematoma moderately large size. Patient received 2 units of packed red blood cells with a repeat hemoglobin of 8.9 and later this evening 8.8. Patient denies any significant abdominal pain. PMH; notable for atrial fibrillation on Eliquis, diabetes mellitus, dyslipidemia, obstructive sleep apnea as well as atherosclerotic heart disease,CKD PSH; includes renal and pancreatic transplant in the year 1999 Physical exam: HEENT: Normocephalic, sclerae nonicteric, oral mucosa dry, skin appears weathered Chest: Clear to auscultation Heart: Regular rate and rhythm Abdomen: Slightly protuberant, soft, non tender to light palpation, no palpable mass Extremities: strength 5+ all extremities Neuro: Ox1, confused to place and time A/P : 57-year-old gentleman status post recent PCI, discharged on aspirin, Plavix and Eliquis Blood loss anemia secondary to retroperitoneal hemorrhage, appears stable Acute kidney injury secondary to blood loss/possible nephrotoxic exposu Agree withhold Plavix, Eliquis, your medical, cardiology and nephrology care We'll follow with you, repeat cbc in am, thank you
[2023-04-14] MEDS: HYDROmorphone 0.5 MG/0.5 ML SYRINGE IVP PRN ×2 (00:26→17:42)
[2023-04-14] MEDS: SODIUM CHLORIDE 0.9% 1,000 ML IV SCH (06:24)
[2023-04-14 07:42] LABS: Anisocytosis Slight; HCT 25.7 % (39.0-53.0); HGB 8.7 gm/dL (13.0-17.5); MCH 32.1 pg (25.0-35.0); MCHC 33.7 g/dL (31.0-37.0); MCV 95.4 fL (80.0-100.0); Mean Platelet Volume 7.3; Platelet Count 123 k/uL (150-450); RDW 16.7 % (11.5-15.5); WBC 16.5 k/uL (3.8-10.6)
[2023-04-14] MEDS: TACROLIMUS 0.5 MG CAP PO SCH ×2 (08:20→21:19)
[2023-04-14] MEDS: predniSONE 5 MG TAB PO SCH (08:20)
[2023-04-14] MEDS: ASPIRIN 81 MG PO SCH (08:20)
[2023-04-14 12:24] LABS: ALT 16 U/L (4-49); AST 25 U/L (17-59); African American GFR (CKD) 24 (>60 ml/min/1.73 sqM); Albumin 3.4 g/dL (3.5-5.0); Alkaline Phosphatase 75 U/L (38-126); Anion Gap 16 mmol/L; Blood Urea Nitrogen 62 mg/dL (9-20); Calcium 9.2 mg/dL (8.4-10.2); Carbon Dioxide 12 mmol/L (22-30); Chloride 110 mmol/L (98-107); Glucose 92 mg/dL (74-99); Non-African American GFR(CKD) 21 (>60 ml/min/1.73 sqM); Potassium 4.8 mmol/L (3.5-5.1); Sodium 138 mmol/L (137-145); Total Bilirubin 1.3 mg/dL (0.2-1.3); Total Protein 5.9 g/dL (6.3-8.2)
--- NOTE | 2023-04-14 12:50 | P.PN ---
Subjective Progress Note Date: 04/14/23 at bedside. Denies abdominal pain. Hgb stable. Patient having regular diet. No current issues Objective - Vital Signs Vital signs: Vital Signs Temp 97.6 F 04/14/23 08:00 Pulse 89 04/14/23 08:00 Resp 20 04/14/23 08:00 BP 160/78 04/14/23 08:00 Pulse Ox 96 04/14/23 08:00 FiO2 Intake & Output 04/13/23 04/14/23 04/14/23 18:59 06:59 18:59 Intake Total 695 110 Balance 695 110 Weight 59.874 kg Intake: Intake, IV Titration 75 Amount Sodium Chloride 0.9% 1, 75 000 ml @ 75 mls/hr IV . [id number] [facility] Rx#:[id number] Oral 110 Blood Product 620 Rc As-1 Unit 310 [id number] Rc As-1 Unit 310 [id number] Other: Voiding Method External Catheter External Catheter - Labs CBC & Chem 7: 04/14/23 07:11 04/14/23 07:11 Labs: Abnormal Lab Results - Last 24 Hours (Table) 04/13/23 04/13/23 04/13/23 Range/Units 04:00 04:41 15:44 WBC 15.1 H (3.8-10.6) k/uL RBC 2.76 L (4.30-5.90) m/uL Hgb 8.9 L D (13.0-17.5) gm/dL Hct 25.7 L (39.0-53.0) % RDW 16.3 H (11.5-15.5) % Plt Count 130 L (150-450) k/uL Neutrophils # 12.8 H (1.3-7.7) k/uL Lymphocytes # 0.5 L (1.0-4.8) k/uL Monocytes # 1.6 H (0-1.0) k/uL Chloride (98-107) mmol/L Carbon Dioxide (22-30) mmol/L BUN (9-20) mg/dL Creatinine (0.66-1.25) mg/dL Iron 38 L (65-175) UG/DL TIBC 217 L (228-460) UG/DL Transferrin 155.0 L (204.0-354.0) mg/dL Total Protein (6.3-8.2) g/dL Albumin (3.5-5.0) g/dL Crossmatch See Detail 04/13/23 04/14/23 04/14/23 Range/Units 21:27 07:11 07:11 WBC 16.3 H 16.5 H (3.8-10.6) k/uL RBC 2.70 L 2.70 L (4.30-5.90) m/uL Hgb 8.8 L 8.7 L (13.0-17.5) gm/dL Hct 25.4 L 25.7 L (39.0-53.0) % RDW 16.6 H 16.7 H (11.5-15.5) % Plt Count 119 L 123 L (150-450) k/uL Neutrophils # (1.3-7.7) k/uL Lymphocytes # (1.0-4.8) k/uL Monocytes # (0-1.0) k/uL Chloride 110 H (98-107) mmol/L Carbon Dioxide 12 L (22-30) mmol/L BUN 62 H (9-20) mg/dL Creatinine 3.13 H (0.66-1.25) mg/dL Iron (65-175) UG/DL TIBC (228-460) UG/DL Transferrin (204.0-354.0) mg/dL Total Protein 5.9 L (6.3-8.2) g/dL Albumin 3.4 L (3.5-5.0) g/dL Crossmatch
[2023-04-14] MEDS: amLODIPine 5 MG TAB PO SCH ×2 (13:14→21:19)
[2023-04-14] MEDS: ATORVASTATIN 80 MG TAB PO SCH (13:14)
--- NOTE | 2023-04-14 13:25 | P.PN ---
Subjective Progress Note Date: 04/14/23 Principal diagnosis: Retroperitoneal hematoma with secondary blood loss anemia. Patient is a 57-year-old male with multiple medical problems including diabetes mellitus, status post pancreatic as well as to renal transplants. Few days, the patient underwent percutaneous coronary revascularization via a radial approach. The patient was placed on anticoagulants as directed by his therapy teacher. Approximate 2 days ago he began to complain of some back discomfort which led him to present to the emergency room. Computed tomography scan of the abdomen and pelvis was performed which demonstrated a hematoma in the right retroperitoneum measuring 8 x 7 cm. Additionally this demonstrated a 4.2 cm infrarenal abdominal aortic aneurysm. Currently the patient indicates his pain is resolved. Objective - Vital Signs Vital signs: Vital Signs Temp 97.6 F 04/14/23 08:00 Pulse 89 04/14/23 08:00 Resp 20 04/14/23 08:00 BP 160/78 04/14/23 08:00 Pulse Ox 96 04/14/23 08:00 FiO2 Intake & Output 04/13/23 04/14/23 04/14/23 18:59 06:59 18:59 Intake Total 695 110 Balance 695 110 Weight 59.874 kg Intake: Intake, IV Titration 75 Amount Sodium Chloride 0.9% 1, 75 000 ml @ 75 mls/hr IV . [id number] [facility] Rx#:[id number] Oral 110 Blood Product 620 As-1 Unit 310 [id number] Rc As-1 Unit 310 [id number] Other: Voiding Method External Catheter External Catheter - Exam Patient is awake, alert and in no apparent distress. Abdomen is soft and otherwise benign. Flank hematoma on the right is identified with ecchymotic changes extending posterior laterally to the proximal thigh on the right.. - Labs CBC & Chem 7: 04/14/23 07:11 04/14/23 07:11 Labs: Abnormal Lab Results - Last 24 Hours (Table) 04/13/23 04/13/23 04/13/23 Range/Units 04:00 04:41 15:44 WBC 15.1 H (3.8-10.6) k/uL RBC 2.76 L (4.30-5.90) m/uL Hgb 8.9 L D (13.0-17.5) gm/dL Hct 25.7 L (39.0-53.0) % RDW 16.3 H (11.5-15.5) % Plt Count 130 L (150-450) k/uL Neutrophils # 12.8 H (1.3-7.7) k/uL Lymphocytes # 0.5 L (1.0-4.8) k/uL Monocytes # 1.6 H (0-1.0) k/uL Chloride (98-107) mmol/L Carbon Dioxide (22-30) mmol/L BUN (9-20) mg/dL Creatinine (0.66-1.25) mg/dL Iron 38 L (65-175) UG/DL TIBC 217 L (228-460) UG/DL Transferrin 155.0 L (204.0-354.0) mg/dL Total Protein (6.3-8.2) g/dL Albumin (3.5-5.0) g/dL Crossmatch See Detail 04/13/23 04/14/23 04/14/23 Range/Units 21:27 07:11 07:11 WBC 16.3 H 16.5 H (3.8-10.6) k/uL RBC 2.70 L 2.70 L (4.30-5.90) m/uL Hgb 8.8 L 8.7 L (13.0-17.5) gm/dL Hct 25.4 L 25.7 L (39.0-53.0) % RDW 16.6 H 16.7 H (11.5-15.5) % Plt Count 119 L 123 L (150-450) k/uL Neutrophils # (1.3-7.7) k/uL Lymphocytes # (1.0-4.8) k/uL Monocytes # (0-1.0) k/uL Chloride 110 H (98-107) mmol/L Carbon Dioxide 12 L (22-30) mmol/L BUN 62 H (9-20) mg/dL Creatinine 3.13 H (0.66-1.25) mg/dL Iron (65-175) UG/DL TIBC (228-460) UG/DL Transferrin (204.0-354.0) mg/dL Total Protein 5.9 L (6.3-8.2) g/dL Albumin 3.4 L (3.5-5.0) g/dL Crossmatch Assessment and Plan Assessment: Spontaneous retroperitoneal hematoma with secondary blood loss anemia, status post transfusion 2 units of packed red blood cells with stable hemoglobin. Coronary disease/percutaneous cardiac revascularization. Diabetes mellitus status post pancreatic and renal transplant 4.2 cm infrarenal abdominal aortic aneurysm. Plan: From a vascular surgical standpoint and no intervention is warranted. CT angiogram was not performed secondary to the patient's tenuous renal status however the patient's hemoglobin has been stable and it would appear that bleeding has stopped. I discussed the situation with the patient and his spouse who was at his bedside. I would anticipate over the next 8-12 weeks this hematoma would completely resolve and no surgical intervention would be necessary. I also indicated that the patient is free to ambulate to whatever extent he is able without concern in reference to the hematoma. All questions were answered to patient and spouse satisfaction.
--- NOTE | 2023-04-14 14:04 | P.PN ---
Subjective HISTORY OF PRESENTING ILLNESS This is a pleasant 57-year-old male past medical history significant for dyslipidemia, paroxysmal atrial fibrillation on Eliquis, diabetes mellitus status post pancreas transplant, chronic kidney disease status post kidney transplantation, obstructive sleep apnea, anemia, CAD s/p PCI OM1. He follows in the office with Dr. Jordan. He has been complaining of increasing episodes of shortness breath and congestive heart failure and has had worsened any function. Risks and benefits eventually explained to patient and patient eventually underwent heart catheterization with PCI of OM1 branch 04/11/2023 f rom a left radial approach. He did fairly well postoperatively however has been complaining of increasing shortness breath and fatigue and therefore presented back to the emergency department. He was found to have anemia with hemoglobin 6.5 and therefore was transfused 2 units packed red blood cells. He had CAT scan of the abdomen and pelvis performed which showed a retroperitoneal bleed mainly extending into the right femoral site. There is no femoral intervention. He had been discharged home on aspirin, Plavix, Eliquis. He denies any chest pain or pressure. Creatinine elevated at 3.8 and troponin elevated 0.3. Renal transplant ultrasound performed however has not resulted. 04/14 Patient seen and examined. Creatinine improved to 3.1 today. He has been receiving IV fluids at 75 mL per hour and admits to some dyspnea fairly stable compared to yesterday. Additionally he did receive the 2 units packed red blood cells yesterday. Denies any chest pain or pressure. He was restarted on aspirin yesterday. Creatinine stable at 8.7. Lower extremity ultrasound showed no active pseudoaneurysm. PHYSICAL EXAMINATION Vitals reviewed CONSTITUTIONAL: No apparent distress. Appears older than stated age HEENT: Head is normocephalic. Pupils are equal, round. Sclerae anicteric. Mucous membranes of the mouth are moist. No JVD. No carotid bruit. CHEST EXAMINATION: Lungs are clear to auscultation. No chest wall tenderness is noted on palpation or with deep breathing. HEART EXAMINATION: Regular rate and rhythm. S1, S2 heard. Short systolic ejection murmur at the base, no gallops or rub. ABDOMEN: Soft, nontender. Positive bowel sounds. Mildly distended EXTREMITIES: 2+ peripheral pulses, trace bilateral lower extremity pitting edema and no calf tenderness. NEUROLOGIC EXAMINATION: Patient is awake, alert and oriented x3. ASSESSMENT CAD status post PCI OM1 branch 04/11 Acute blood loss anemia appears mainly related to retroperitoneal hemorrhage Abdominal aortic aneurysm stable by noncontrast CT Acute kidney injury Chronic diastolic heart failure Leukocytosis Paroxysmal atrial fibrillation on long-term anticoagulation, currently maintaining sinus mechanism Squamous cell skin cancer Hypertension Dyslipidemia Diabetes mellitus Chronic kidney disease status post renal transplant History of pancreatic transplant PLAN Hemoglobin appears more stable. Continue with aspirin. Likely add back Plavix tomorrow if hemoglobin remains stable. Stop IV fluids as he appears to be developing heart failure. May need further diuretics however creatinine appears to have stabilized after heart catheterization. Prognosis guarded. Objective - Vital Signs Vital signs: Vital Signs Temp 98.9 F 04/14/23 13:00 Pulse 89 04/14/23 13:00 Resp 16 04/14/23 13:00 BP 163/79 04/14/23 13:00 Pulse Ox 96 04/14/23 13:00 FiO2 Intake & Output 04/13/23 04/14/23 04/14/23 18:59 06:59 18:59 Intake Total 695 220 Output Total 650 Balance 695 -430 Weight 59.874 kg Intake: Intake, IV Titration 75 Amount Sodium Chloride 0.9% 1, 75 000 ml @ 75 mls/hr IV . [id number] [facility] Rx#:[id number] Oral 220 Blood Product 620 Rc As-1 Unit 310 [id number] Rc As-1 Unit 310 [id number] Output: Urine 650 Other: Voiding Method External Catheter External Catheter - Labs CBC & Chem 7: 04/14/23 07:11 04/14/23 07:11 Labs: Abnormal Lab Results - Last 24 Hours (Table) 04/13/23 04/13/23 04/13/23 Range/Units 04:00 04:41 15:44 WBC 15.1 H (3.8-10.6) k/uL RBC 2.76 L (4.30-5.90) m/uL Hgb 8.9 L D (13.0-17.5) gm/dL Hct 25.7 L (39.0-53.0) % RDW 16.3 H (11.5-15.5) % Plt Count 130 L (150-450) k/uL Neutrophils # 12.8 H (1.3-7.7) k/uL Lymphocytes # 0.5 L (1.0-4.8) k/uL Monocytes # 1.6 H (0-1.0) k/uL Chloride (98-107) mmol/L Carbon Dioxide (22-30) mmol/L BUN (9-20) mg/dL Creatinine (0.66-1.25) mg/dL Iron 38 L (65-175) UG/DL TIBC 217 L (228-460) UG/DL Transferrin 155.0 L (204.0-354.0) mg/dL Total Protein (6.3-8.2) g/dL Albumin (3.5-5.0) g/dL Crossmatch See Detail 04/13/23 04/14/23 04/14/23 Range/Units 21:27 07:11 07:11 WBC 16.3 H 16.5 H (3.8-10.6) k/uL RBC 2.70 L 2.70 L (4.30-5.90) m/uL Hgb 8.8 L 8.7 L (13.0-17.5) gm/dL Hct 25.4 L 25.7 L (39.0-53.0) % RDW 16.6 H 16.7 H (11.5-15.5) % Plt Count 119 L 123 L (150-450) k/uL Neutrophils # (1.3-7.7) k/uL Lymphocytes # (1.0-4.8) k/uL Monocytes # (0-1.0) k/uL Chloride 110 H (98-107) mmol/L Carbon Dioxide 12 L (22-30) mmol/L BUN 62 H (9-20) mg/dL Creatinine 3.13 H (0.66-1.25) mg/dL Iron (65-175) UG/DL TIBC (228-460) UG/DL Transferrin (204.0-354.0) mg/dL Total Protein 5.9 L (6.3-8.2) g/dL Albumin 3.4 L (3.5-5.0) g/dL Crossmatch
--- NOTE | 2023-04-14 14:22 | P.PN ---
Subjective Progress Note Date: 04/14/23 patient is a 57-year-old male with past medical history of hypertension, hy perlipidemia, post pancreas renal transplant , coronary artery disease who was recently discharged from the hospital after getting stent placed presenting back to the hospital for increasing weakness and inability to take care of himself . Patient underwent cardiac cath one day ago with Successful stenting of the OM1 with reduction of stenosis from 99% to less than 5%. Patient was discharged by cardiology in stable condition. After patient went home he started complaining of increasing lethargy and weakness. Denied any chest pain. Complaining of shortness of breath. Denied any palpitations. No complain of orthopnea or PND. No swelling of feet. Denies any lightheadedness and dizziness. No complain of blood in stools. No complaint of hematemesis. Initial lab work done in the ER showed WBC 17.1, hemoglobin 6.5, platelet count 158, sodium 131, potassium 5.2 BUN 75, creatinine 3.79, calcium 2.5 Chest x-ray done in the ER showed CHF exacerbation and fluid overload state Patient admitted to medicine service 04/14. Patient seen and examined. WBC 16.5, hemoglobin 8.7, platelet count 123. REVIEW OF SYSTEMS: CONSTITUTIONAL: No fever, no malaise,. CARDIOVASCULAR: No chest pain, no palpitations, no syncope. PULMONARY: No shortness of breath, no cough, GASTROINTESTINAL: No diarrhea, no nausea, no vomiting, no abdominal pain. NEUROLOGICAL: No headaches, no weakness, PHYSICAL EXAMINATION: GENERAL: The patient is alert and oriented x3, not in any acute distress. Well developed, well nourished. HEENT: Pupils are round and equally reacting to light. EOMI. No scleral icterus. No conjunctival pallor. Normocephalic, atraumatic. No pharyngeal erythema. No thyromegaly. CARDIOVASCULAR: S1 and S2 present. No murmurs, rubs, or gallops. PULMONARY: Diminished breath sounds at the bases bilaterally, bilateral crackles audible ABDOMEN: nontender, distended normoactive bowel sounds. No palpable organomegaly. MUSCULOSKELETAL: No joint swelling or deformity. EXTREMITIES: No cyanosis, clubbing, or pedal edema. NEUROLOGICAL: Gross neurological examination did not reveal any focal deficits. SKIN: Bruising in right flank seen Assessment and plan Acute blood loss Anemia Acute on chronic kidney disease CAD status post PCI OM1 branch 04/11 retroperitoneal hemorrhage Abdominal aortic aneurysm stable by noncontrast CT Hyponatremia Hypokalemia History of kidney pancreas transplantation chronic obstructive pulmonary disease, not in exacerbation Diabetes mellitus, type II Hypertension Chronic diastolic heart failure Leukocytosis Paroxysmal atrial fibrillation on long-term anticoagulation, currently maintaining sinus mechanism Squamous cell skin cancer Monitor vital signs Monitor CBC Monitor CMP Continue telemetry monitoring Encourage use of incentive spirometer Avoid nephrotoxic agents Continue IV fluids Continue aspirin, if hemoglobin remains stable, will resume Plavix because of recent stent placement Cardiology following Nephrology is following, recommend resuming immunosuppressants ; Prograf and prednisone In regards to hypertension resume Norvasc Regards to hyperlipidemia , continue Lipitor In regards to acute anemia,continue to monitor H&H transfuse for hemodynamic instability or hemoglobin less than 8, results of CT abdomen noted, stable retroperitoneal bleed , vascular surgery following no surgical intervention planned Labs and medication were reviewed.. Continue same treatment. Continue with symptomatic treatment. Resume home medication. Monitor labs and vitals. DVT and GI prophylaxis. Further recommendations as per clinical course of the patient Dictation was produced using [employer] dictation software. please excuse any grammatical, word or spelling errors. Objective - Vital Signs Vital signs: Vital Signs Temp 97.6 F 04/14/23 08:00 Pulse 89 04/14/23 08:00 Resp 20 04/14/23 08:00 BP 160/78 04/14/23 08:00 Pulse Ox 96 04/14/23 08:00 FiO2 Intake & Output 04/13/23 04/14/23 04/14/23 18:59 06:59 18:59 Intake Total 695 Balance 695 Weight 59.874 kg Intake: Intake, IV Titration 75 Amount Sodium Chloride 0.9% 1, 75 000 ml @ 75 mls/hr IV . [id number] [facility] Rx#:[id number] Blood Product 620 Rc As-1 Unit 310 [id number] Rc As-1 Unit 310 [id number] Other: Voiding Method External Catheter - Labs CBC & Chem 7: 04/14/23 07:11 04/14/23 07:11 Labs: Abnormal Lab Results - Last 24 Hours (Table) 04/13/23 04/13/23 04/13/23 Range/Units 04:00 04:41 15:44 WBC 15.1 H (3.8-10.6) k/uL RBC 2.76 L (4.30-5.90) m/uL Hgb 8.9 L D (13.0-17.5) gm/dL Hct 25.7 L (39.0-53.0) % RDW 16.3 H (11.5-15.5) % Plt Count 130 L (150-450) k/uL Neutrophils # 12.8 H (1.3-7.7) k/uL Lymphocytes # 0.5 L (1.0-4.8) k/uL Monocytes # 1.6 H (0-1.0) k/uL Iron 38 L (65-175) UG/DL TIBC 217 L (228-460) UG/DL Transferrin 155.0 L (204.0-354.0) mg/dL Crossmatch See Detail 04/13/23 04/14/23 Range/Units 21:27 07:11 WBC 16.3 H 16.5 H (3.8-10.6) k/uL RBC 2.70 L 2.70 L (4.30-5.90) m/uL Hgb 8.8 L 8.7 L (13.0-17.5) gm/dL Hct 25.4 L 25.7 L (39.0-53.0) % RDW 16.6 H 16.7 H (11.5-15.5) % Plt Count 119 L 123 L (150-450) k/uL Neutrophils # (1.3-7.7) k/uL Lymphocytes # (1.0-4.8) k/uL Monocytes # (0-1.0) k/uL Iron (65-175) UG/DL TIBC (228-460) UG/DL Transferrin (204.0-354.0) mg/dL Crossmatch
--- NOTE | 2023-04-14 15:28 | P.PN ---
Subjective Progress Note Date: 04/14/23 Follow-up for acute kidney injury. Family at bedside. Urine output better, no further drop in hemoglobin Objective - Vital Signs Vital signs: Vital Signs Temp 98.9 F 04/14/23 13:00 Pulse 89 04/14/23 13:00 Resp 16 04/14/23 13:00 BP 163/79 04/14/23 13:00 Pulse Ox 96 04/14/23 13:00 FiO2 Intake & Output 04/13/23 04/14/23 04/14/23 18:59 06:59 18:59 Intake Total 695 220 Output Total 650 Balance 695 -430 Weight 59.874 kg Intake: Intake, IV Titration 75 Amount Sodium Chloride 0.9% 1, 75 000 ml @ 75 mls/hr IV . [id number] [facility] Rx#:[id number] Oral 220 Blood Product 620 Rc As-1 Unit 310 [id number] Rc As-1 Unit 310 [id number] Output: Urine 650 Other: Voiding Method External Catheter External Catheter - Labs CBC & Chem 7: 04/14/23 07:11 04/14/23 07:11 Labs: Abnormal Lab Results - Last 24 Hours (Table) 04/13/23 04/13/23 04/13/23 Range/Units 04:41 15:44 21:27 WBC 15.1 H 16.3 H (3.8-10.6) k/uL RBC 2.76 L 2.70 L (4.30-5.90) m/uL Hgb 8.9 L D 8.8 L (13.0-17.5) gm/dL Hct 25.7 L 25.4 L (39.0-53.0) % RDW 16.3 H 16.6 H (11.5-15.5) % Plt Count 130 L 119 L (150-450) k/uL Neutrophils # 12.8 H (1.3-7.7) k/uL Lymphocytes # 0.5 L (1.0-4.8) k/uL Monocytes # 1.6 H (0-1.0) k/uL Chloride (98-107) mmol/L Carbon Dioxide (22-30) mmol/L BUN (9-20) mg/dL Creatinine (0.66-1.25) mg/dL Total Protein (6.3-8.2) g/dL Albumin (3.5-5.0) g/dL Crossmatch See Detail 04/14/23 04/14/23 Range/Units 07:11 07:11 WBC 16.5 H (3.8-10.6) k/uL RBC 2.70 L (4.30-5.90) m/uL Hgb 8.7 L (13.0-17.5) gm/dL Hct 25.7 L (39.0-53.0) % RDW 16.7 H (11.5-15.5) % Plt Count 123 L (150-450) k/uL Neutrophils # (1.3-7.7) k/uL Lymphocytes # (1.0-4.8) k/uL Monocytes # (0-1.0) k/uL Chloride 110 H (98-107) mmol/L Carbon Dioxide 12 L (22-30) mmol/L BUN 62 H (9-20) mg/dL Creatinine 3.13 H (0.66-1.25) mg/dL Total Protein 5.9 L (6.3-8.2) g/dL Albumin 3.4 L (3.5-5.0) g/dL Crossmatch Assessment and Plan Assessment: #1 acute kidney injury, multifactorial ATN. -Recent contrast and currently ischemic -Baseline creatinine around 2.0 MG per DL. #2 status post living related renal transplant in 1999 and donor pancreatic transplant in the same year #3 anemia secondary to retroperitoneal bleed #4 CK D4 #5 metabolic bone disease #6 recent cardiac cath Plan: #1 renal function better. Continue with normal saline at 75 ML's an hour. #2 check urine analysis #3 avoid nephrotoxic agents and hypotensive episodes #4 restart on home immunosuppressive medication, check Prograf level in the morning
[2023-04-14] MEDS: SODIUM BICARBONATE TAB 650 MG TAB PO SCH ×2 (16:46→21:19)
[2023-04-14 21:00] LABS: Appearance,Urine Clear (Clear); Bilirubin,Urine Negative (Negative); Blood,Urine Large (Negative); Color,Urine Colorless; Glucose,Urine (UA) Negative (Negative); Ketones,Urine Negative (Negative); Leukocyte Esterase,Urine Large (Negative); Mucus,Urine Rare /hpf; Nitrite,Urine Negative (Negative); Protein,Urine Negative (Negative); RBC,Urine 1 /hpf (0-5); Specific Gravity,Urine 1.014 (1.001-1.035); Urobilinogen,Urine <2.0 mg/dL (<2.0); WBC,Urine 5 /hpf (0-5)
[2023-04-14] MEDS ORDERED: MONTELUKAST 10 MG TAB PO SCH (21:00)
[2023-04-14] MEDS ORDERED: NIACIN TR 500 MG CAPLET PO SCH (21:00)
[2023-04-15 08:10] LABS: Anisocytosis Slight; HCT 24.9 % (39.0-53.0); HGB 8.4 gm/dL (13.0-17.5); MCH 31.7 pg (25.0-35.0); MCHC 33.7 g/dL (31.0-37.0); MCV 93.8 fL (80.0-100.0); Mean Platelet Volume 8.9; Platelet Count 110 k/uL (150-450); Poikilocytosis Slight; RBC 2.66 m/uL (4.30-5.90); RDW 16.9 % (11.5-15.5); WBC 13.8 k/uL (3.8-10.6)
[2023-04-15 08:38] LABS: ALT 16 U/L (4-49); AST 22 U/L (17-59); African American GFR (CKD) 35 (>60 ml/min/1.73 sqM); Albumin 3.3 g/dL (3.5-5.0); Alkaline Phosphatase 81 U/L (38-126); Anion Gap 10 mmol/L; Blood Urea Nitrogen 45 mg/dL (9-20); Calcium 9.2 mg/dL (8.4-10.2); Carbon Dioxide 17 mmol/L (22-30); Chloride 109 mmol/L (98-107); Glucose 109 mg/dL (74-99); Non-African American GFR(CKD) 30 (>60 ml/min/1.73 sqM); Potassium 4.5 mmol/L (3.5-5.1); Sodium 136 mmol/L (137-145); Total Bilirubin 2.1 mg/dL (0.2-1.3); Total Protein 5.9 g/dL (6.3-8.2)
[2023-04-15] MEDS ORDERED: CITALOPRAM HYDROBROMIDE 10 MG TAB PO SCH (09:00)
[2023-04-15] MEDS ORDERED: FERROUS SULFATE 325 MG TAB PO SCH (09:00)
[2023-04-15] MEDS: amLODIPine 5 MG TAB PO SCH (09:11)
[2023-04-15] MEDS: ASPIRIN 81 MG PO SCH (09:11)
[2023-04-15] MEDS: SODIUM BICARBONATE TAB 650 MG TAB PO SCH (09:11)
[2023-04-15] MEDS: ATORVASTATIN 80 MG TAB PO SCH (09:11)
[2023-04-15] MEDS: TACROLIMUS 0.5 MG CAP PO SCH (09:11)
[2023-04-15] MEDS: predniSONE 5 MG TAB PO SCH (09:11)
[2023-04-15 09:28] VITALS: PULSE 86; RESP 22; TEMP 98
[2023-04-15] MEDS ORDERED: CLOPIDOGREL 75 MG TAB PO SCH (10:30)
--- NOTE | 2023-04-15 11:04 | P.PN ---
Subjective Progress Note Date: 04/15/23 CHIEF COMPLAINT: Retroperitoneal hemorrhage HISTORY OF PRESENT ILLNESS: Patient with recent history of coronary disease status post PCI on 04/11. He had been on blood thinners. Developed a right- sided retroperitoneal hemorrhage. Blood thinners had been held. Hemoglobin stable at 8.4. Cardiology restarting Plavix today. Denies any abdominal pain. PHYSICAL EXAM: VITAL SIGNS: Reviewed GENERAL: no acute distress. HEENT: No sclera icterus. Extraocular movements grossly intact. Moist buccal mucosa. Head is atraumatic, normocephalic. Hears conversational speech. No nasal drainage. NECK: Supple without lymphadenopathy. CHEST: Non-labored respirations and equal bilateral excursions. CARDIOVASCULAR: Palpable 2+ radial pulses. ABDOMEN: Soft. Nondistended. Nontender. Patient has ecchymosis on the right side of the abdomen and into the right thigh MUSCULOSKELETAL: No clubbing or cyanosis. NEUROLOGIC: No focal or lateralizing signs. Cranial nerves II through XII grossly intact. PSYCH: Appropriate affect. Alert and oriented to person, place and time. SKIN: Well perfused. Good skin turgor. ASSESSMENT: Right-sided Retroperitoneal hemorrhage with acute blood loss anemia History of coronary artery disease status post PCI on 04/11/2023 Abdominal aortic aneurysm stable by noncontrast CT Acute kidney injury Chronic diastolic heart failure Leukocytosis Paroxysmal atrial fibrillation on long-term anticoagulation, currently maintaining sinus mechanism Hypertension Dyslipidemia Diabetes mellitus Chronic kidney disease status post renal transplant History of pancreatic transplant PLAN: -No surgical intervention planned -Continue to monitor hemoglobin Physician Airworthiness Inspector note has been reviewed by physician. Signing provider agrees with the documented findings, assessment, and plan of care. Objective - Vital Signs Vital signs: Vital Signs Temp 98.0 F 04/15/23 08:00 Pulse 86 04/15/23 08:00 Resp 22 04/15/23 08:00 BP 147/60 04/15/23 08:00 Pulse Ox 91 L 04/15/23 08:00 FiO2 Intake & Output 04/14/23 04/15/23 04/15/23 18:59 06:59 18:59 Intake Total 270 120 Output Total 650 900 Balance -380 -900 120 Intake: Oral 270 120 Output: Urine 650 900 Other: Voiding Method External Catheter External Catheter - Labs CBC & Chem 7: 04/15/23 07:52 04/15/23 07:52 Labs: Abnormal Lab Results - Last 24 Hours (Table) 04/14/23 04/14/23 04/15/23 Range/Units 07:11 20:41 07:52 WBC 13.8 H (3.8-10.6) k/uL RBC 2.66 L (4.30-5.90) m/uL Hgb 8.4 L (13.0-17.5) gm/dL Hct 24.9 L (39.0-53.0) % RDW 16.9 H (11.5-15.5) % Plt Count 110 L (150-450) k/uL Sodium (137-145) mmol/L Chloride 110 H (98-107) mmol/L Carbon Dioxide 12 L (22-30) mmol/L BUN 62 H (9-20) mg/dL Creatinine 3.13 H (0.66-1.25) mg/dL Glucose (74-99) mg/dL Total Bilirubin (0.2-1.3) mg/dL Total Protein 5.9 L (6.3-8.2) g/dL Albumin 3.4 L (3.5-5.0) g/dL Urine Blood Large H (Negative) Ur Leukocyte Esterase Large H (Negative) Urine Mucus Rare H (None) /hpf 04/15/23 Range/Units 07:52 WBC (3.8-10.6) k/uL RBC (4.30-5.90) m/uL Hgb (13.0-17.5) gm/dL Hct (39.0-53.0) % RDW (11.5-15.5) % Plt Count (150-450) k/uL Sodium 136 L (137-145) mmol/L Chloride 109 H (98-107) mmol/L Carbon Dioxide 17 L (22-30) mmol/L BUN 45 H (9-20) mg/dL Creatinine 2.29 H (0.66-1.25) mg/dL Glucose 109 H (74-99) mg/dL Total Bilirubin 2.1 H (0.2-1.3) mg/dL Total Protein 5.9 L (6.3-8.2) g/dL Albumin 3.3 L (3.5-5.0) g/dL Urine Blood (Negative) Ur Leukocyte Esterase (Negative) Urine Mucus (None) /hpf
--- NOTE | 2023-04-15 11:17 | P.PN ---
Subjective Patient is seen in follow-up for acute kidney injury on chronic kidney disease. Renal function improved with IV fluids and is back to baseline. Has been voiding. No chest pain or shortness of breath at this time. Hemodynamically stable. Vital signs are stable. General: NAD. HEENT: Head exam is unremarkable. On NC. LUNGS: No acute rhonchi or wheezes. HEART: Rate and Rhythm are regular. ABDOMEN: Nontender. EXTREMITITES: No edema. Objective - Vital Signs Vital signs: Vital Signs Temp 98.0 F 04/15/23 08:00 Pulse 86 04/15/23 08:00 Resp 22 04/15/23 08:00 BP 147/60 04/15/23 08:00 Pulse Ox 91 L 04/15/23 08:00 FiO2 Intake & Output 04/14/23 04/15/23 04/15/23 18:59 06:59 18:59 Intake Total 270 120 Output Total 650 900 Balance -380 -900 120 Intake: Oral 270 120 Output: Urine 650 900 Other: Voiding Method External Catheter External Catheter - Labs CBC & Chem 7: 04/15/23 07:52 04/15/23 07:52 Labs: Abnormal Lab Results - Last 24 Hours (Table) 04/14/23 04/14/23 04/15/23 Range/Units 07:11 20:41 07:52 WBC 13.8 H (3.8-10.6) k/uL RBC 2.66 L (4.30-5.90) m/uL Hgb 8.4 L (13.0-17.5) gm/dL Hct 24.9 L (39.0-53.0) % RDW 16.9 H (11.5-15.5) % Plt Count 110 L (150-450) k/uL Sodium (137-145) mmol/L Chloride 110 H (98-107) mmol/L Carbon Dioxide 12 L (22-30) mmol/L BUN 62 H (9-20) mg/dL Creatinine 3.13 H (0.66-1.25) mg/dL Glucose (74-99) mg/dL Total Bilirubin (0.2-1.3) mg/dL Total Protein 5.9 L (6.3-8.2) g/dL Albumin 3.4 L (3.5-5.0) g/dL Urine Blood Large H (Negative) Ur Leukocyte Esterase Large H (Negative) Urine Mucus Rare H (None) /hpf 04/15/23 Range/Units 07:52 WBC (3.8-10.6) k/uL RBC (4.30-5.90) m/uL Hgb (13.0-17.5) gm/dL Hct (39.0-53.0) % RDW (11.5-15.5) % Plt Count (150-450) k/uL Sodium 136 L (137-145) mmol/L Chloride 109 H (98-107) mmol/L Carbon Dioxide 17 L (22-30) mmol/L BUN 45 H (9-20) mg/dL Creatinine 2.29 H (0.66-1.25) mg/dL Glucose 109 H (74-99) mg/dL Total Bilirubin 2.1 H (0.2-1.3) mg/dL Total Protein 5.9 L (6.3-8.2) g/dL Albumin 3.3 L (3.5-5.0) g/dL Urine Blood (Negative) Ur Leukocyte Esterase (Negative) Urine Mucus (None) /hpf Assessment and Plan Plan: Assessment: 1. Acute kidney injury secondary to vasomotor nephropathy and component of contrast-induced acute kidney injury improved with IV hydration. Creatinine 3.7 and on admission and is 2.29 today. No hydronephrosis noted on ultrasound. No proteinuria on UA. 2. 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 3. Coronary artery disease status post cardiac catheterization with 2 stents placed 04/11/2023. 4. Chronic kidney disease mineral bone disease maintained on calcitriol. 5. Hypertension with chronic kidney disease. Stable. 6. Metabolic acidosis secondary to chronic kidney disease maintained on oral bicarb. 7. Status post living related renal transplant 1999 and donor pancreatic transplant. On prednisone and tacrolimus. Plan: Currently off IV fluids. Follow-up chest x-ray. If evidence of fluid overload, resume torsemide. Avoid nephrotoxins. Hospice being considered. Follow-up echocardiogram. Prograf level pending.
--- NOTE | 2023-04-15 11:32 | XR ---
EXAMINATION TYPE: XR chest 1V portable DATE OF EXAM: 04/15/2023 10:42 AM CLINICAL INDICATION:Male, 57 years old with history of Dyspnea; [facility] COMPARISON: Chest radiographs from 04/05/2023. TECHNIQUE: XR chest 1V portable Frontal view of the chest. FINDINGS: Lungs/Pleura: Perihilar airspace opacities bilaterally. There is no evidence of pleural effusion, foc al consolidation, or pneumothorax. Pulmonary vascularity: Unremarkable. Heart/mediastinum: Cardiomediastinal silhouette is prominent in size. Musculoskeletal: No acute osseous pathology. Left neck surgical clips. IMPRESSION: Airspace opacities in the midlungs bilaterally with cardiomegaly correlate with serum BNP. Correlate for pneumonia. These appear more prominent compared to prior.
--- NOTE | 2023-04-15 11:55 | P.PN ---
Subjective HISTORY OF PRESENT ILLNESS: This is a pleasant 57-year-old male past medical history significant for dyslipidemia, paroxysmal atrial fibrillation on Eliquis, diabetes mellitus status post pancreas transplant, chronic kidney disease status post kidney transplantation, obstructive sleep apnea, anemia, CAD s/p PCI OM1. He follows in the office with Dr. Jordan. He has been complaining of increasing episodes of shortness breath and congestive heart failure and has had worsened any function. Risks and benefits eventually explained to patient and patient eventually underwent heart catheterization with PCI of OM1 branch 04/11/2023 from a left radial approach. He did fairly well postoperatively however has be en complaining of increasing shortness breath and fatigue and therefore presented back to the emergency department. He was found to have anemia with hemoglobin 6.5 and therefore was transfused 2 units packed red blood cells. He had CAT scan of the abdomen and pelvis performed which showed a retroperitoneal bleed mainly extending into the right femoral site. There is no femoral intervention. He had been discharged home on aspirin, Plavix, Eliquis. He denies any chest pain or pressure. Creatinine elevated at 3.8 and troponin elevated 0.3. Renal transplant ultrasound performed however has not resulted. 04/14 Patient seen and examined. Creatinine improved to 3.1 today. He has been rece iving IV fluids at 75 mL per hour and admits to some dyspnea fairly stable compared to yesterday. Additionally he did receive the 2 units packed red blood cells yesterday. Denies any chest pain or pressure. He was restarted on aspirin yesterday. Creatinine stable at 8.7. Lower extremity ultrasound showed no active pseudoaneurysm. 04/15/2023 Patient examined this morning at the bedside. Patient denies chest pain or pressure. He denies shortness of breath. Patient's hemoglobin remains stable this morning. Hospice has been consulted for evaluation. PHYSICAL EXAM: VITAL SIGNS: Reviewed. GENERAL: Well-developed in no acute distress. NECK: Supple. No JVD or thyromegaly LUNGS: Respirations even and unlabored. Lungs essentially clear to auscultation bilaterally. HEART: Regular rate and rhythm. S1 and S2 heard. EXTREMITIES: Normal range of motion. No clubbing or cyanosis. Peripheral pulses intact. No lower extremity edema ASSESSMENT: CAD status post PCI OM1 branch 04/11 Acute blood loss anemia appears mainly related to retroperitoneal hemorrhage Abdominal aortic aneurysm stable by noncontrast CT Acute kidney injury Chronic diastolic heart failure Leukocytosis Paroxysmal atrial fibrillation on long-term anticoagulation, currently maintaining sinus mechanism Squamous cell skin cancer Hypertension Dyslipidemia Diabetes mellitus Chronic kidney disease status post renal transplant History of pancreatic transplant PLAN: Obtain 2-D echo to assess cardiac structure and function Resume Plavix as hemoglobin remains stable. Continue aspirin. Gabriela remains on hold Continue additional cardiac medications Hospice has been consulted and evaluated patient this morning Further recommendations pending patient's course Nurse practitioner note has been reviewed by physician. Signing provider agrees with the documented findings, assessment, and plan of care. Objective - Vital Signs Vital signs: Vital Signs Temp 98.0 F 04/15/23 08:00 Pulse 86 04/15/23 08:00 Resp 22 04/15/23 08:00 BP 147/60 04/15/23 08:00 Pulse Ox 91 L 04/15/23 08:00 FiO2 Intake & Output 04/14/23 04/15/23 04/15/23 18:59 06:59 18:59 Intake Total 270 120 Output Total 650 900 Balance -380 -900 120 Intake: Oral 270 120 Output: Urine 650 900 Other: Voiding Method External Catheter External Catheter - Labs CBC & Chem 7: 04/15/23 07:52 04/15/23 07:52 Labs: Abnormal Lab Results - Last 24 Hours (Table) 04/14/23 04/14/23 04/15/23 Range/Units 07:11 20:41 07:52 WBC 13.8 H (3.8-10.6) k/uL RBC 2.66 L (4.30-5.90) m/uL Hgb 8.4 L (13.0-17.5) gm/dL Hct 24.9 L (39.0-53.0) % RDW 16.9 H (11.5-15.5) % Plt Count 110 L (150-450) k/uL Sodium (137-145) mmol/L Chloride 110 H (98-107) mmol/L Carbon Dioxide 12 L (22-30) mmol/L BUN 62 H (9-20) mg/dL Creatinine 3.13 H (0.66-1.25) mg/dL Glucose (74-99) mg/dL Total Bilirubin (0.2-1.3) mg/dL Total Protein 5.9 L (6.3-8.2) g/dL Albumin 3.4 L (3.5-5.0) g/dL Urine Blood Large H (Negative) Ur Leukocyte Esterase Large H (Negative) Urine Mucus Rare H (None) /hpf 04/15/23 Range/Units 07:52 WBC (3.8-10.6) k/uL RBC (4.30-5.90) m/uL Hgb (13.0-17.5) gm/dL Hct (39.0-53.0) % RDW (11.5-15.5) % Plt Count (150-450) k/uL Sodium 136 L (137-145) mmol/L Chloride 109 H (98-107) mmol/L Carbon Dioxide 17 L (22-30) mmol/L BUN 45 H (9-20) mg/dL Creatinine 2.29 H (0.66-1.25) mg/dL Glucose 109 H (74-99) mg/dL Total Bilirubin 2.1 H (0.2-1.3) mg/dL Total Protein 5.9 L (6.3-8.2) g/dL Albumin 3.3 L (3.5-5.0) g/dL Urine Blood (Negative) Ur Leukocyte Esterase (Negative) Urine Mucus (None) /hpf
[2023-04-15] MEDS ORDERED: VANCOMYCIN IV PER PHARMACY 1 EACH MISC MISCELLANE PRN (12:45)
[2023-04-15] MEDS ORDERED: PNEUMONIA PROTOCOL UTILIZED 1 EACH MISC PO PRN (12:45)
[2023-04-15] MEDS ORDERED: PIPERACILLIN-TAZOBACTAM 3.375 GM in SODIUM CHLORIDE 0.9% 100 ML IVPB STA (12:45)
--- NOTE | 2023-04-15 12:47 | P.PN ---
Subjective Progress Note Date: 04/15/23 patient is a 57-year-old male with past medical history of hypertension, hy perlipidemia, post pancreas renal transplant , coronary artery disease who was recently discharged from the hospital after getting stent placed presenting back to the hospital for increasing weakness and inability to take care of himself . Patient underwent cardiac cath one day ago with Successful stenting of the OM1 with reduction of stenosis from 99% to less than 5%. Patient was discharged by cardiology in stable condition. After patient went home he started complaining of increasing lethargy and weakness. Denied any chest pain. Complaining of shortness of breath. Denied any palpitations. No complain of orthopnea or PND. No swelling of feet. Denies any lightheadedness and dizziness. No complain of blood in stools. No complaint of hematemesis. Initial lab work done in the ER showed WBC 17.1, hemoglobin 6.5, platelet count 158, sodium 131, potassium 5.2 BUN 75, creatinine 3.79, calcium 2.5 Chest x-ray done in the ER showed CHF exacerbation and fluid overload state Patient admitted to medicine service 04/14. Patient seen and examined. WBC 16.5, hemoglobin 8.7, platelet count 123. 04/15. Patient seen and examined. Lab work this morning Wbc 13.8, hemoglobin 8.4, sodium is 136, potassium is 4.5, BUN is 45, creatinine is 2.9. Currently on 5 L of oxygen, desaturated overnight, oxygen dipped into 70s. Patient migdalia nues to be confused, only alert to self. Keeps on pulling his nasal cannula REVIEW OF SYSTEMS: CONSTITUTIONAL: No fever, no malaise,. CARDIOVASCULAR: No chest pain, no palpitations, no syncope. PULMONARY: Complaining of shortness of breath GASTROINTESTINAL: No diarrhea, no nausea, no vomiting, no abdominal pain. NEUROLOGICAL: No headaches, no weakness, PHYSICAL EXAMINATION: GENERAL: The patient is alert to self, not in any acute distress. Chronically ill-looking HEENT: Pupils are round and equally reacting to light. EOMI. No scleral icterus. No conjunctival pallor. Normocephalic, atraumatic. No pharyngeal erythema. No thyromegaly. CARDIOVASCULAR: S1 and S2 present. No murmurs, rubs, or gallops. PULMONARY: Diminished breath sounds at the bases bilaterally, bilateral crackles audible ABDOMEN: nontender, distended normoactive bowel sounds. No palpable organomegaly. MUSCULOSKELETAL: No joint swelling or deformity. EXTREMITIES: No cyanosis, clubbing, or pedal edema. NEUROLOGICAL: Gross neurological examination did not reveal any focal deficits. SKIN: Bruising in right flank seen Assessment and plan Acute blood loss Anemia Acute on chronic kidney disease CAD status post PCI OM1 branch 04/11 retroperitoneal hemorrhage Abdominal aortic aneurysm stable by noncontrast CT Hyponatremia Hypokalemia History of kidney pancreas transplantation chronic obstructive pulmonary disease, not in exacerbation Diabetes mellitus, type II Hypertension Chronic diastolic heart failure Leukocytosis Paroxysmal atrial fibrillation on long-term anticoagulation, currently maintaining sinus mechanism Squamous cell skin cancer Monitor vital signs Monitor CBC Monitor CMP Continue telemetry monitoring Encourage use of incentive spirometer Avoid nephrotoxic agents Chest x-ray ordered, ordered pro-Keaton and proBNP Continue aspirin, if hemoglobin remains stable, will resume Plavix because of recent stent placement Cardiology following Nephrology is following, recommend resuming immunosuppressants ; Prograf and prednisone In regards to hypertension continue Norvasc Regards to hyperlipidemia , continue Lipitor In regards to acute anemia,continue to monitor H&H transfuse for hemodynamic instability or hemoglobin less than 8, results of CT abdomen noted, stable retroperitoneal bleed , vascular surgery following no surgical intervention planned Labs and medication were reviewed.. Continue same treatment. Continue with symptomatic treatment. Resume home medication. Monitor labs and vitals. DVT and GI prophylaxis. Further recommendations as per clinical course of the patient Dictation was produced using [employer] dictation software. please excuse any grammatical, word or spelling errors. Objective - Vital Signs Vital signs: Vital Signs Temp 98.0 F 04/15/23 08:00 Pulse 86 04/15/23 08:00 Resp 22 04/15/23 08:00 BP 147/60 04/15/23 08:00 Pulse Ox 91 L 04/15/23 08:00 FiO2 Intake & Output 04/14/23 04/15/23 04/15/23 18:59 06:59 18:59 Intake Total 270 120 Output Total 650 900 Balance -380 -900 120 Intake: Oral 270 120 Output: Urine 650 900 Other: Voiding Method External Catheter External Catheter - Labs CBC & Chem 7: 04/15/23 07:52 04/15/23 07:52 Labs: Abnormal Lab Results - Last 24 Hours (Table) 04/14/23 04/14/23 04/15/23 Range/Units 07:11 20:41 07:52 WBC 13.8 H (3.8-10.6) k/uL RBC 2.66 L (4.30-5.90) m/uL Hgb 8.4 L (13.0-17.5) gm/dL Hct 24.9 L (39.0-53.0) % RDW 16.9 H (11.5-15.5) % Plt Count 110 L (150-450) k/uL Sodium (137-145) mmol/L Chloride 110 H (98-107) mmol/L Carbon Dioxide 12 L (22-30) mmol/L BUN 62 H (9-20) mg/dL Creatinine 3.13 H (0.66-1.25) mg/dL Glucose (74-99) mg/dL Total Bilirubin (0.2-1.3) mg/dL Total Protein 5.9 L (6.3-8.2) g/dL Albumin 3.4 L (3.5-5.0) g/dL Urine Blood Large H (Negative) Ur Leukocyte Esterase Large H (Negative) Urine Mucus Rare H (None) /hpf 04/15/23 Range/Units 07:52 WBC (3.8-10.6) k/uL RBC (4.30-5.90) m/uL Hgb (13.0-17.5) gm/dL Hct (39.0-53.0) % RDW (11.5-15.5) % Plt Count (150-450) k/uL Sodium 136 L (137-145) mmol/L Chloride 109 H (98-107) mmol/L Carbon Dioxide 17 L (22-30) mmol/L BUN 45 H (9-20) mg/dL Creatinine 2.29 H (0.66-1.25) mg/dL Glucose 109 H (74-99) mg/dL Total Bilirubin 2.1 H (0.2-1.3) mg/dL Total Protein 5.9 L (6.3-8.2) g/dL Albumin 3.3 L (3.5-5.0) g/dL Urine Blood (Negative) Ur Leukocyte Esterase (Negative) Urine Mucus (None) /hpf
[2023-04-15] MEDS ORDERED: FUROSEMIDE 10 MG/ML 4 ML VIAL IV SCH (13:00)
[2023-04-15] MEDS ORDERED: VANCOMYCIN 1,000 MG in SODIUM CHLORIDE 0.9% 250 ML IVPB ONE (13:00)
--- NOTE | 2023-04-15 13:02 | P.PN ---
Subjective Progress Note Date: 04/15/23 Principal diagnosis: Retroperitoneal hematoma Patient seen and examined today as a follow-up. Apparently he was seen by hospice over the weekend and is contemplating possible hospice care. He denies any acute changes through the night. Some mild discomfort to the right lower abdomen/flank where bruising present. Hemoglobin stable at 8.4. Objective - Vital Signs Vital signs: Vital Signs Temp 98.0 F 04/15/23 08:00 Pulse 86 04/15/23 08:00 Resp 22 04/15/23 08:00 BP 147/60 04/15/23 08:00 Pulse Ox 91 L 04/15/23 08:00 FiO2 Intake & Output 04/14/23 04/15/23 04/15/23 18:59 06:59 18:59 Intake Total 270 120 Output Total 650 900 Balance -380 -900 120 Intake: Oral 270 120 Output: Urine 650 900 Other: Voiding Method External Catheter External Catheter - Exam General appearance: The patient is alert, oriented, ill-appearing, appears in no acute distress. HET: Head is normocephalic and atraumatic. Pupils are equal and reactive. Neck: Supple. Heart: Regular. Lungs: Equal expansion, normal respiratory effort. Abdomen: Soft, nontender, nondistended. Right lower abdomen and flank with ecchymosis. Extremities: Normal skin color and turgor. Neurological: No focal deficits. - Labs CBC & Chem 7: 04/15/23 07:52 04/15/23 07:52 Labs: Abnormal Lab Results - Last 24 Hours (Table) 04/14/23 04/14/23 04/15/23 Range/Units 07:11 20:41 07:52 WBC 13.8 H (3.8-10.6) k/uL RBC 2.66 L (4.30-5.90) m/uL Hgb 8.4 L (13.0-17.5) gm/dL Hct 24.9 L (39.0-53.0) % RDW 16.9 H (11.5-15.5) % Plt Count 110 L (150-450) k/uL Sodium (137-145) mmol/L Chloride 110 H (98-107) mmol/L Carbon Dioxide 12 L (22-30) mmol/L BUN 62 H (9-20) mg/dL Creatinine 3.13 H (0.66-1.25) mg/dL Glucose (74-99) mg/dL Total Bilirubin (0.2-1.3) mg/dL Total Protein 5.9 L (6.3-8.2) g/dL Albumin 3.4 L (3.5-5.0) g/dL Urine Blood Large H (Negative) Ur Leukocyte Esterase Large H (Negative) Urine Mucus Rare H (None) /hpf 04/15/23 Range/Units 07:52 WBC (3.8-10.6) k/uL RBC (4.30-5.90) m/uL Hgb (13.0-17.5) gm/dL Hct (39.0-53.0) % RDW (11.5-15.5) % Plt Count (150-450) k/uL Sodium 136 L (137-145) mmol/L Chloride 109 H (98-107) mmol/L Carbon Dioxide 17 L (22-30) mmol/L BUN 45 H (9-20) mg/dL Creatinine 2.29 H (0.66-1.25) mg/dL Glucose 109 H (74-99) mg/dL Total Bilirubin 2.1 H (0.2-1.3) mg/dL Total Protein 5.9 L (6.3-8.2) g/dL Albumin 3.3 L (3.5-5.0) g/dL Urine Blood (Negative) Ur Leukocyte Esterase (Negative) Urine Mucus (None) /hpf Assessment and Plan Assessment: 1. Spontaneous retroperitoneal hematoma with secondary blood loss anemia 2. Coronary artery disease/recent percutaneous cardiac revascularization 3. Diabetes mellitus status post pancreatic and renal transplant 4. 4.2 cm infrarenal abdominal aortic aneurysm Plan: Patient's hemoglobin remained stable. From a vascular surgical standpoint no intervention warranted. Vascular surgery will sign off at this time. The impression and plan of care has been dictated as directed. I performed a history and examination of this patient, discussed the same with the dictator. I agree with the dictator's note ,documented as a scribe. Any additional findings or plans will be noted.
[2023-04-15 13:15] VITALS: BP 154/75
--- NOTE | 2023-04-15 16:35 | P.CNPUL ---
History of Present Illness Consult date: 04/15/23 Requesting physician: Tahir Lozano Reason for consult: other (Pulmonary edema and shortness of breath) Chief complaint: Shortness of breath History of present illness: This is a 57-year-old white male with history of pancreatic and renal transplant, chronic kidney disease and previous kidney transplantation, obstructive sleep apnea syndrome, anemia, coronary artery disease and previous PCI of the obtuse marginal 1, patient was admitted on 04/13 patient was complaining of shortness of breath and he was found to be anemic with hemoglobin of 6.5 given 2 units of packed RBCs and CT of the abdomen and pelvis showed retroperitoneal bleed mainly extending into the right femoral site. Looking b ack on 04/11/2023, patient had PCI of obtuse marginal 1 branch and this was done from the left radial approach. At any rate the patient was admitted his chest x-ray showed evidence of pulmonary edema and I was asked to see him on consultation. I saw the patient on consultation, recommended diuretics/Lasix however shortly after I evaluated the patient, patient was made hospice, and apparently was discharged to hospice. Review of Systems CONSTITUTIONAL: Denies fever or chills. CARDIOVASCULAR: Denies chest pain, +shortness of breath, no orthopnea, PND or palpitations. RESPIRATORY: Denies cough. GASTROINTESTINAL: Denies abdominal pain, diarrhea, constipation, nausea or vomiting. MUSCULOSKELETAL: Denies myalgias. NEUROLOGIC: Denies numbness, tingling or weakness. ENDOCRINE: Denies fatigue, weight change, polydipsia or polyurina. GENITOURINARY: Denies burning, hematuria or urgency with micturation. HEMATOLOGIC: Denies history of anemia or bleeding. Past Medical History Past Medical History: Cancer, Heart Failure, COPD, Diabetes Mellitus, Hyperlipidemia, Hypertension, Osteoarthritis (OA), Prostate Disorder, Renal Dis ease, Sleep Apnea/CPAP/BIPAP Additional Past Medical History / Comment(s): ARDS, hx of DM was tx for dm from age 9- 35, had pancreas transplant), uses cpap machine, basal/squamous cell skin cancer, cancer on neck received surg & radiation on neck 02/2020. hx rt elbow broken-(sx), charcots foot, pancreatitis, bladder leakage, Kidney transplant. History of Any Multi-Drug Resistant Organisms: None Reported Past Surgical History: Hernia Repair, Joint Replacement Additional Past Surgical History / Comment(s): 2 kidney and 1 pancreas transplant, L knee replacment, rt elbow sx has 7 screws,cataracts removed-lens implants, laser eye sx for retinopathy, fernando foot sx, skin cancer removed on his head, neck surgery for cancer. Past Anesthesia/Blood Transfusion Reactions: No Reported Reaction Past Psychological History: No Psychological Hx Reported Smoking Status: Never smoker Past Alcohol Use History: None Reported Additional Past Alcohol Use History / Comment(s): chews tobacco occ. Past Drug Use History: None Reported - Past Family History Mother Family Medical History: Cancer, Diabetes Mellitus Father Family Medical History: CVA/TIA Additional Family Medical History / Comment(s): was smoker had stroke in his 30's Medications and Allergies Home Medications Medication Instructions Recorded Confirmed Type Sodium Bicarbonate Tab 1,300 mg PO TID 11/23/13 04/13/23 History Ferrous Sulfate [Iron (65 MG 325 mg PO DAILY 12/17/18 04/13/23 History Elemental)] Montelukast [Singulair] 10 mg PO HS 12/17/18 04/13/23 History allopurinoL [Zyloprim] 100 mg PO DAILY 12/17/18 04/13/23 History calcitrioL [Rocaltrol] 0.5 mcg PO MOWEFR 12/17/18 04/13/23 History predniSONE 5 mg PO DAILY 03/09/19 04/13/23 History Labetalol HCl 400 mg PO BID 11/15/19 04/13/23 History amLODIPine [Norvasc] 5 mg PO BID 11/15/19 04/13/23 History calcitrioL [Rocaltrol] 0.25 mcg PO SUTUTHSA 03/03/20 04/13/23 History Niacinamide 500 mg PO BID-W/MEALS 10/23/20 04/13/23 History Tacrolimus [Prograf] 0.5 mg PO BID 30 Days #60 cap 02/13/22 04/13/23 Rx hydrALAZINE HCL [Apresoline] 50 mg PO BID 04/17/22 04/13/23 History Citalopram Hydrobromide 10 mg PO DAILY 10/18/22 04/13/23 History [Citalopram HBr] Torsemide [Demadex] 40 mg PO DAILY 04/10/23 04/13/23 History Aspirin 81 mg PO DAILY tab 04/12/23 04/13/23 Rx Nitroglycerin Sl Tabs [Nitrostat] 0.4 mg SUBLINGUAL Q5M PRN #25 tab 04/12/23 04/13/23 Rx Atorvastatin [Lipitor] 80 mg PO DIRECTED 04/13/23 04/13/23 History Clopidogrel [Plavix] 75 mg PO DIRECTED 04/13/23 04/13/23 History Magnesium Oxide [Mag-Ox] 400 mg PO DAILY 04/13/23 04/13/23 History Ondansetron Odt [Zofran ODT] 4 mg PO Q8HR PRN 04/13/23 04/13/23 History Allergies Allergy/AdvReac Type Severity Reaction Status Date / Time Iodine and Iodide Containing AdvReac HX OF Verified 04/13/23 12:38 Produc KIDNEY DISEASE Physical Exam Vitals: Vital Signs Temp Pulse Resp BP Pulse Ox 04/15/23 12:00 22 154/75 88 L 04/15/23 08:00 98.0 F 86 22 147/60 91 L 04/15/23 04:38 98.7 F 93 20 146/71 95 04/15/23 02:00 87 16 04/14/23 23:42 87 16 148/68 90 L 04/14/23 21:15 98.6 F 91 16 160/74 90 L 04/14/23 20:00 91 16 Intake and Output 04/15/23 04/15/23 04/15/23 06:59 14:59 22:59 Intake Total 360 Output Total 250 Balance -250 360 Intake: Oral 360 Output: Urine 250 Other: Voiding Method External Catheter External Catheter Physical Exam: Revealed 57-year-old white male in no distress Head: Atraumatic, normocephalic HEENT:[Neck is supple.] [No neck masses.] [No thyromegaly.] [No JVD.] Chest: [Fine crackles at the bases bilaterally Cardiac Exam: [Normal S1 and S2, no S3 gallop, no murmur.] Abdomen: [Soft, nontender, no megaly, no rebound, no guarding, normal bowel sounds.] Extremities: [No clubbing, 1+ bipedal edema Neurological Exam: Alert and oriented 3 no focal deficit psychiatric: Normal mood, affect and normal mental status examination. Results - Laboratory Findings CBC and BMP: 04/15/23 07:52 04/15/23 07:52 PT/INR, D-dimer PT 11.1 sec (10.0-12.5) 04/13/23 04:00 INR 1.0 (<1.2) 04/13/23 04:00 Abnormal lab findings: Abnormal Labs 04/13/23 04/13/23 04/13/23 04:00 04:00 04:00 WBC 17.1 H RBC 2.02 L Hgb 6.5 L* D Hct 19.7 L* RDW 16.5 H Plt Count Neutrophils # 14.1 H Lymphocytes # 0.7 L Monocytes # 2.0 H Sodium 131 L Potassium 5.2 H Chloride Carbon Dioxide 16 L BUN 75 H Creatinine 3.79 H Glucose 116 H Magnesium 2.5 H Iron TIBC Transferrin Total Bilirubin Troponin I Total Protein 5.5 L Albumin 3.4 L Procalcitonin Urine Blood Ur Leukocyte Esterase Urine RBC 9 H Urine WBC 17 H Urine Mucus Occasional H Crossmatch 04/13/23 04/13/23 04/13/23 04:00 04:00 04:41 WBC 16.7 H RBC 2.00 L Hgb 6.6 L* Hct 19.4 L* RDW 16.6 H Plt Count 140 L Neutrophils # 14.2 H Lymphocytes # 0.6 L Monocytes # 1.7 H Sodium Potassium Chloride Carbon Dioxide BUN Creatinine Glucose Magnesium Iron 38 L TIBC 217 L Transferrin 155.0 L Total Bilirubin Troponin I 0.354 H* Total Protein Albumin Procalcitonin Urine Blood Ur Leukocyte Esterase Urine RBC Urine WBC Urine Mucus Crossmatch 04/13/23 04/13/23 04/13/23 04:41 15:44 21:27 WBC 15.1 H 16.3 H RBC 2.76 L 2.70 L Hgb 8.9 L D 8.8 L Hct 25.7 L 25.4 L RDW 16.3 H 16.6 H Plt Count 130 L 119 L Neutrophils # 12.8 H Lymphocytes # 0.5 L Monocytes # 1.6 H Sodium Potassium Chloride Carbon Dioxide BUN Creatinine Glucose Magnesium Iron TIBC Transferrin Total Bilirubin Troponin I Total Protein Albumin Procalcitonin Urine Blood Ur Leukocyte Esterase Urine RBC Urine WBC Urine Mucus Crossmatch See Detail 04/14/23 04/14/23 04/14/23 07:11 07:11 20:41 WBC 16.5 H RBC 2.70 L Hgb 8.7 L Hct 25.7 L RDW 16.7 H Plt Count 123 L Neutrophils # Lymphocytes # Monocytes # Sodium Potassium Chloride 110 H Carbon Dioxide 12 L BUN 62 H Creatinine 3.13 H Glucose Magnesium Iron TIBC Transferrin Total Bilirubin Troponin I Total Protein 5.9 L Albumin 3.4 L Procalcitonin Urine Blood Large H Ur Leukocyte Esterase Large H Urine RBC Urine WBC Urine Mucus Rare H Crossmatch 04/15/23 04/15/23 04/15/23 07:52 07:52 07:52 WBC 13.8 H RBC 2.66 L Hgb 8.4 L Hct 24.9 L RDW 16.9 H Plt Count 110 L Neutrophils # Lymphocytes # Monocytes # Sodium 136 L Potassium Chloride 109 H Carbon Dioxide 17 L BUN 45 H Creatinine 2.29 H Glucose 109 H Magnesium Iron TIBC Transferrin Total Bilirubin 2.1 H Troponin I Total Protein 5.9 L Albumin 3.3 L Procalcitonin 0.94 H Urine Blood Ur Leukocyte Esterase Urine RBC Urine WBC Urine Mucus Crossmatch - Diagnostic Findings Chest x-ray: image reviewed (As noted in HPI x-ray is consistent with pulmonary edema) Assessment and Plan Assessment: Impression: Acute on chronic diastolic congestive heart failure Acute retroperitoneal hemorrhage Coronary artery disease, status post PCI OM1 branch 04/11 Paroxysmal atrial fibrillation Benign essential hypertension History of renal and pancreatic transplant Chronic kidney disease, status post renal transplant Type 2 diabetes with diabetic nephropathy Dyslipidemia Abdominal aortic aneurysm/stable by noncontrast CT Recommendation: Continue present supportive care measures Recommend placing 40 mg IV push every 12 hours Continue present antibiotics empirically However shortly after I evaluated the patient, patient was made hospice and will be discharged to hospice care. Hence we'll sign off and CPR Time with Patient: Greater than 30
[2023-04-16] MEDS ORDERED: VANCOMYCIN 1,000 MG in SODIUM CHLORIDE 0.9% 250 ML IVPB ONE (09:00)
--- NOTE | 2023-04-17 09:51 | P.DS ---
Providers Date of admission: 04/13/23 06:29 Expected date of discharge: 04/17/23 Attending physician: Tahir Lozano Consults: 04/13/23 10:08 Consult Physician Routine Consulting Provider: Jeremiah Adhikari Consult Reason/Comments: Acute on chronic kidney disease Do you want consulting provider notified?: Yes 04/13/23 10:18 Consult Physician Routine Consulting Provider: Silvia Jordan Consult Reason/Comments: Increasing shortness of breath, recent PCI Do you want consulting provider notified?: Yes 04/13/23 17:23 Consult Physician Routine Consulting Provider: Molly Maxwell Consult Reason/Comments: re: retroperitoneal bleed Do you want consulting provider notified?: Yes 04/15/23 10:21 Consult Physician Routine Consulting Provider: Maria D Pillai Consult Reason/Comments: Acute respiratory failure Do you want consulting provider notified?: Yes Primary care physician: Sujit Cartagena [facility] Course: Discharge diagnoses; Acute blood loss Anemia Acute on chronic kidney disease CAD status post PCI OM1 branch 04/11 retroperitoneal hemorrhage Abdominal aortic aneurysm stable by noncontrast CT Hyponatremia Hypokalemia History of kidney pancreas transplantation chronic obstructive pulmonary disease, not in exacerbation Diabetes mellitus, type II Hypertension Chronic diastolic heart failure Leukocytosis Paroxysmal atrial fibrillation on long-term anticoagulation, currently maintaining sinus mechanism Squamous cell skin cancer Hospital course; patient is a 57-year-old male with past medical history of hypertension, hyperlipidemia, post pancreas renal transplant , coronary artery disease who was recently discharged from the hospital after getting stent placed presenting back to the hospital for increasing weakness and inability to take care of himself . Patient underwent cardiac cath one day ago with Successful stenting of the OM1 with reduction of stenosis from 99% to less than 5%. Patient was discharged by cardiology in stable condition. After patient went home he started complaining of increasing lethargy and weakness. Denied any chest pain. Complaining of shortness of breath. Denied any palpitations. No complain of orthopnea or PND. No swelling of feet. Denies any lightheadedness and dizziness. No complain of blood in stools. No complaint of hematemesis. Initial lab work done in the ER showed WBC 17.1, hemoglobin 6.5, platelet count 158, sodium 131, potassium 5.2 BUN 75, creatinine 3.79, calcium 2.5 Chest x-ray done in the ER showed CHF exacerbation and fluid overload state Patient admitted to medicine service 04/14. Patient seen and examined. WBC 16.5, hemoglobin 8.7, platelet count 123. 10/. Patient seen and examined. Lab work this morning Wbc 13.8, hemoglobin 8.4, sodium is 136, potassium is 4.5, BUN is 45, creatinine is 2.9. Currently on 5 L of oxygen, desaturated overnight, oxygen dipped into 70s. Patient continues to be confused, only alert to self. Keeps on pulling his nasal cannula. Family at discussion with hospice, they want patient to be transitioned to comfort care and to be discharged to hospice home. Being discharged there in stable and PHYSICAL EXAMINATION: GENERAL: The patient is alert to self, not in any acute distress. Chronically ill-looking HEENT: Pupils are round and equally reacting to light. EOMI. No scleral icterus. No conjunctival pallor. Normocephalic, atraumatic. No pharyngeal erythema. No thyromegaly. CARDIOVASCULAR: S1 and S2 present. No murmurs, rubs, or gallops. PULMONARY: Diminished breath sounds at the bases bilaterally, bilateral crackles audible ABDOMEN: nontender, distended normoactive bowel sounds. No palpable organomegaly. MUSCULOSKELETAL: No joint swelling or deformity. EXTREMITIES: No cyanosis, clubbing, or pedal edema. NEUROLOGICAL: Gross neurological examination did not reveal any focal deficits. SKIN: Bruising in right flank seen Dictation was produced using [employer] dictation software. please excuse any grammatical, word or spelling errors. Patient Condition at Discharge: Serious Plan - Discharge Summary Discharge Rx Participant: No New Discharge Prescriptions: Continue Sodium Bicarbonate Tab 1,300 mg PO TID Ferrous Sulfate [Iron (65 MG Elemental)] 325 mg PO DAILY calcitrioL [Rocaltrol] 0.5 mcg PO MOWEFR allopurinoL [Zyloprim] 100 mg PO DAILY Montelukast [Singulair] 10 mg PO HS predniSONE 5 mg PO DAILY amLODIPine [Norvasc] 5 mg PO BID Labetalol HCl 400 mg PO BID calcitrioL [Rocaltrol] 0.25 mcg PO SUTUTHSA Niacinamide 500 mg PO BID-W/MEALS Aspirin 81 mg PO DAILY tab Nitroglycerin Sl Tabs [Nitrostat] 0.4 mg SUBLINGUAL Q5M PRN #25 tab PRN Reason: Chest Pain Atorvastatin [Lipitor] 80 mg PO DIRECTED Clopidogrel [Plavix] 75 mg PO DIRECTED Ondansetron Odt [Zofran ODT] 4 mg PO Q8HR PRN PRN Reason: Nausea Tacrolimus [Prograf] 0.5 mg PO BID 30 Days #60 cap hydrALAZINE HCL [Apresoline] 50 mg PO BID Citalopram Hydrobromide [Citalopram HBr] 10 mg PO DAILY Torsemide [Demadex] 40 mg PO DAILY Magnesium Oxide [Mag-Ox] 400 mg PO DAILY Discontinued Apixaban [Eliquis] 2.5 mg PO BID Discharge Medication List Sodium Bicarbonate Tab 1,300 mg PO TID 11/23/13 [History] Ferrous Sulfate [Iron (65 MG Elemental)] 325 mg PO DAILY 12/17/18 [History] Montelukast [Singulair] 10 mg PO HS 12/17/18 [History] allopurinoL [Zyloprim] 100 mg PO DAILY 12/17/18 [History] calcitrioL [Rocaltrol] 0.5 mcg PO MOWEFR 12/17/18 [History] predniSONE 5 mg PO DAILY 03/09/19 [History] Labetalol HCl 400 mg PO BID 11/15/19 [History] amLODIPine [Norvasc] 5 mg PO BID 11/15/19 [History] calcitrioL [Rocaltrol] 0.25 mcg PO SUTUTHSA 03/03/20 [History] Niacinamide 500 mg PO BID-W/MEALS 10/23/20 [History] Tacrolimus [Prograf] 0.5 mg PO BID 30 Days #60 cap 02/13/22 [Rx] hydrALAZINE HCL [Apresoline] 50 mg PO BID 04/17/22 [History] Citalopram Hydrobromide [Citalopram HBr] 10 mg PO DAILY 10/18/22 [History] Torsemide [Demadex] 40 mg PO DAILY 04/10/23 [History] Aspirin 81 mg PO DAILY tab 04/12/23 [Rx] Nitroglycerin Sl Tabs [Nitrostat] 0.4 mg SUBLINGUAL Q5M PRN #25 tab 04/12/23 [Rx] Atorvastatin [Lipitor] 80 mg PO DIRECTED 04/13/23 [History] Clopidogrel [Plavix] 75 mg PO DIRECTED 04/13/23 [History] Magnesium Oxide [Mag-Ox] 400 mg PO DAILY 04/13/23 [History] Ondansetron Odt [Zofran ODT] 4 mg PO Q8HR PRN 04/13/23 [History] Follow up Appointment(s)/Referral(s): Sujit Cartagena [Primary Care Provider] - 1-2 days Discharge Disposition: DISCH TO [facility]
== END 2023-04-15 15:16 | disposition hospice, inpatient (51) | DRG 813 ==
LOC: SUPCPDRO 03:25 → EC 03:25 → 3SCARD 06:29
PROVIDERS: ADMIT Hospitalist; ATTEND Hospitalist
PROC: 30233N1 Transfusion of Nonautologous Red Blood Cells into Peripheral Vein, Percutaneous Approach (ICD-10-PCS; principal; 2023-04-13)
DX: D68.32 Hemorrhagic disorder due to extrinsic circulating anticoagulants (principal); I50.33 Acute on chronic diastolic (congestive) heart failure; K68.3 Retroperitoneal hematoma; N17.0 Acute kidney failure with tubular necrosis; K86.3 Pseudocyst of pancreas; D62 Acute posthemorrhagic anemia; Z20.822 Contact with and (suspected) exposure to COVID-19; I13.2 Hypertensive heart and chronic kidney disease with heart failure and with stage 5 chronic kidney disease, or end stage renal disease; I50.32 Chronic diastolic (congestive) heart failure; E87.1 Hypo-osmolality and hyponatremia; Z94.83 Pancreas transplant status; E11.319 Type 2 diabetes mellitus with unspecified diabetic retinopathy without macular edema; I25.10 Atherosclerotic heart disease of native coronary artery without angina pectoris; I71.43 Infrarenal abdominal aortic aneurysm, without rupture; E78.5 Hyperlipidemia, unspecified; I48.0 Paroxysmal atrial fibrillation; Z79.01 Long term (current) use of anticoagulants; E87.6 Hypokalemia; R58 Hemorrhage, not elsewhere classified; N18.32 Chronic kidney disease, stage 3b; E11.22 Type 2 diabetes mellitus with diabetic chronic kidney disease; E11.610 Type 2 diabetes mellitus with diabetic neuropathic arthropathy; M89.8X9 Other specified disorders of bone, unspecified site; M19.90 Unspecified osteoarthritis, unspecified site; Z96.1 Presence of intraocular lens; Z98.42 Cataract extraction status, left eye; Z98.41 Cataract extraction status, right eye; Z85.828 Personal history of other malignant neoplasm of skin; Z79.02 Long term (current) use of antithrombotics/antiplatelets; Z87.19 Personal history of other diseases of the digestive system; Z79.899 Other long term (current) drug therapy; Z79.82 Long term (current) use of aspirin; Z95.5 Presence of coronary angioplasty implant and graft; Z91.041 Radiographic dye allergy status
CPT/HCPCS: 36415; 36430; 51702; 71045; 74176; 76776; 80053; 80197; 81001; 82570; 82728; 82747; 83540; 83550; 83605; 83735; 83880; 83935; 84145; 84300; 84484; 85025; 85027; 85610; 85730; 86850; 86900; 86901; 86920; 87205; 87636; 93005; 93975; 94760; 96361; 96374; 96376; 99285